=== PATIENT | female | born 1955 | race Caucasian/White ===

== ENCOUNTER 2021-06-25 06:47 | Observation (INO) | payer MEDICARE, SELFPAY ==
--- NOTE | 2021-06-16 11:27 | RAD_ITS ---
STUDY: X-RAY CHEST REASON FOR EXAM: Female, 65 years old. PREOP COMPARISON: None TECHNIQUE: XR Chest 2 Views FINDINGS: There is no demonstrated pleural abnormality. Age indeterminate mid thoracic compression deformity. MRI can better evaluate. Normal heart size. Normal mediastinum and jeffry. Normal visualized pulmonary arteries. There is atherosclerotic calcification of the aortic arch with tortuosity. There are diffuse degenerative changes of the visualized thoracic spine. There is degenerative osteoarthritis of the bilateral shoulders. There is no demonstrated abnormality of the visualized soft tissue structures of the upper abdomen. RAD/Chest PA and Lateral IMPRESSION: There are no acute findings. Other findings as above. Electronically Signed: Dov Payton MD at 16:54 EST ,
[2021-06-16 11:50] LABS: Absolute Lymphocyte Count 1.37 X10^3/uL (0.83-4.51); Absolute Neutrophil Count 3.8 X10^3/uL (2.0-7.7); Basophil# 0.11 X10^3/uL; Basophil% 1.7 % (0-1); Eosinophil# 0.54 X10^3/uL; Eosinophils% 8.5 % (0-5); Hematocrit 39.6 % (37-47); Hemoglobin 12.6 g/dL (12.0-15.0); Lymphocyte # 1.37 X10^3/ul (0.83-4.51); Lymphocyte % 21.4 % (19-41); Mean Corp Hgb Conc 31.8 g/dL (32-36); Mean Corpuscular Hgb 28.2 pg (27.0-32.0); Mean Corpuscular Volume 88.6 fL (81-99); Mean Platelet Vol. 11.7 fl (6.2-12.0); Monocyte# 0.58 X10^3/uL; Monocyte% 9.1 % (0-10); NRBC Flagged by Analyzer 0 % (0-5); Neutrophil # 3.77 X10^3/uL (2.7-7.7); Platelet Count 253 K/mm3 (150-450); RBC Distribution Width CV 14.8 % (11.6-14.6); RBC Distribution Width SD 47.5 fl (35.1-43.9); Red Blood Count 4.47 M/mm3 (4.2-5.4); White Blood Count 6.4 K/mm3 (4.4-11.0)
[2021-06-16 12:53] LABS: Magnesium 1.7 mg/dL (1.6-2.6); Thyroid Stim Hormone (TSH) 0.12 uIU/mL (0.358-3.74)
[2021-06-16 13:11] LABS: Albumin, Serum 3.5 g/dL (3.2-5.0); Anion Gap 8 (5-15); BUN 18 mg/dL (7-18); BUN/Creat Ratio 18.6 RATIO (10-20); Calcium,Total 9.3 mg/dL (8.5-10.1); Chloride 104 mmol/L (98-107); Creatinine, Serum 0.97 mg/dL (0.55-1.02); EST Glomerular Filtration Rate 62 mL/min (>60); Est Glom Filt Rate - Afr Amer 74 mL/min (>60); Glucose 98 mg/dL (74-106); Potassium 4.1 mmol/L (3.5-5.1); Sodium Level 140 mmol/L (136-145)
[2021-06-25] VITALS (13 sets, daily range): BP systolic 102–137; BP diastolic 46–72; PULSE 66–78; RESP 12–18; TEMP 36.3–36.8; O2SAT 94–100; BMI 25.2
[2021-06-25] MEDS: Acetaminophen 500 MG Tablet 1000 MG PO ×3 (06:18→21:32)
[2021-06-25] MEDS: Gabapentin 600 MG Tablet PO (06:19)
[2021-06-25] MEDS: Lactated Ringers 1,000 ML 15 ML IV (06:20)
[2021-06-25 06:46] LABS: Bedside Glucose 101 mg/dL (70-110)
--- NOTE | 2021-06-25 06:49 | RAD_ITS ---
STUDY: X-RAY - RIGHT KNEE REASON FOR EXAM: Female, 65 years old. Post op -- AP and Lateral xray of operative knee in PACU TECHNIQUE: 2 view(s) of the knee. COMPARISON: None. FINDINGS: Normal visualized distal femur. Normal visualized proximal tibia and fibula. Normal proximal tibiofibular articulation. The patient is status post right knee replacement. There is good alignment. Postoperative soft tissue changes. RAD/Knee 1 or 2 Views IMPRESSION: Status post right total knee replacement. There is good alignment. Postoperative soft tissue changes. Electronically Signed: Jose Miguel Martinez MD at 10:55 EST ,
[2021-06-25] MEDS: Cefazolin 2 GM in 0.9% Normal Saline 100 ML IV (07:27)
[2021-06-25] MEDS: TXA 1000mg in NS100 100ml (IVPB at Incision) 660 MG IV (07:35)
[2021-06-25] MEDS: dexAMETHasone 10 MG/ML Vial IV (07:45)
[2021-06-25] MEDS: TXA 1000mg in NS100 100ml (IVPB at Closure) 660 MG IV (08:53)
--- NOTE | 2021-06-25 10:32 | PCM.OPRPT ---
Report of Operation Pre-Operative Diagnosis: Right knee primary osteoarthritis Post-Operative Diagnosis: Right knee primary osteoarthritis Surgery/Procedure Performed:: Right minimally invasive computer assisted navigated total knee replacement Description of Surgical Findings:: Stable knee with good patella tracking Surgeon: Juma Pabon emergency room specialist: Josh Roland Type of Anesthesia: Spinal Anesthesiologist: Bandar Reynolds Special Medications: 2 g Ancef, 1 g TXA at incision, 1 g TXA closure, 10 mg Decadron, joint cocktail (5 mg Duramorph, 30 mL of 0.5% Ropivicaine, 1000 units of epinephrine, 30 mg of Toradol) Specimen's removed: Bony cuts Estimated Blood Loss (mL): 25 Fluids Replaced: Crystalloid Description of Procedure: Implants used: 1. [employer] cemented distal femur: 67.5mm 2. [employer] tibial baseplate: 75mm 3. [employer] polyethylene: 12mm 4. [employer] patella component: 34mm Brief history operative indications: 76-year-old F with history of right knee osteoarthritis with radiographic findings with loss of joint space, osteophyte formation and subchondral sclerosis. Failed conservative measures as mentioned in the H&P. Discussion of total knee arthroplasty as well as risk and benefits were discussed the patient including but not limited to blood loss, DVTs, PEs, neurovascular damage, general risk of anesthesia including loss of life, and stiffness or instability were discussed with patient. Patient demonstrated understanding and was able to sign informed consent. Patient had allergies to nickel so we elected to proceed with a computer navigated nickel free knee. Procedure: On the date of procedure patient's right lower extremity was marked in the preoperative area. The patient was then taken back to the operating room where the patient was placed on the table in the supine position. All bony prominences were identified a well-padded. Anesthesia assumed control of the C-spine and airway and remained controlled throughout the remainder of the procedure. A tourniquet was placed on the right upper thigh and the leg was prepped in a sterile fashion. The surgeon then scrubbed at this time. Upon reentering the room the right lower extremity was draped in a standard orthopedic fashion. A timeout was then called and everyone agreed upon the side, the site, the procedure to be performed, patient's identity and antibiotics given. Esmarch bandage was used to exsanguinate the extremity and the tourniquet was placed up to 250 mmHg with the knee in flexion. A midline skin incision was made and sharp dissection was taken down through skin subcutaneous tissue and fat. The standard medial parapatellar incision was made and the patella was subluxed laterally. The standard deep MCL release was done and the fat pad was resected. Next our attention was directed to the femur. Navigation pins were placed, navigation was registered. The distal femoral cutting block was pinned into place and 10 mm of distal femur resection was completed. The distal femoral cut was verified with navigation. The knee was then placed in deep flexion in the standard [employer] sizing guide was used to place the femoral component in 3? external rotation based on the posterior condyles. A size 67.5 4-in-1 cutting block was selected and pinned into place. The anterior cut was then made and checked for notching. The subsequent anterior chamfer cuts, posterior condylar cuts and posterior chamfer cuts were made while ensuring the MCL and LCL were protected. Our attention was then turned to the tibia where the navigation pins were placed, navigation was registered. [employer] tibial cutting guide was used to make the appropriate tibial cut 90 degrees from the mechanical axis. Navigation was then used to verify the cut. A size 75 mm tibial base plate was selected. the knee was flexed to 90 degrees and the soft tissues and posterior osteophytes were removed from the joint. 40 cc of the periarticular injection was injected into the posterior medial corner of the joint. The appropriate trials were then placed on the femur and tibia. A trial polyethylene was trialed to ensure proper balancing and stability of the knee. Patella tracking, was then verified and corrected appropriately as needed. The appropriate tibial internal rotation was then marked with a bovie. Our attention was then directed to the patella. The patella was everted and a flat resection was made. The lug holes were drilled and the patella trial was placed. Patellar tracking was checked and deemed appropriate. Once we were happy lug holes were drilled for the femur and trial components were removed. the tibia was subluxed and pinned into place and the keel was punched and the canal was reamed. Final components were verified and opened, and cement was mixed in a vacuum. [place] Simplex cement was used. The wound was copiously irrigated with normal saline. When the cement was ready the components were cemented into place starting with the tibia, femur and finally the patella. The trial poly component was placed and the knee was placed in full extension. All excess cement was removed in the process. Once the cement had cured the tracking, alignment and balance were verified and a size 12 mm polyethylene component was placed. Once the final components were placed the wound was copiously irrigated with normal saline solution and the periarticular injection was given. The wound was closed in a layer richardson fashion using #1 vicryl interrupted sutures for the arthrotomy, 2-0 interrupted Vicryl suture for the subcuticular layer and jennifer for final skin closure. A sterile compressive dressing was then placed. The patient was then awakened from anesthesia, transferred to the rexeter and transferred to the PACU for recovery. Post op plan DVT ppx: ASA 81mg BID, thigh high compression stockings Follow up: in office in 2 weeks for wound check PT: to start POD #0 at hospital, outpatient PT should be arranged. My physician registered nurse first assistant was a vital part of this case. He was important in appropriate retraction during the case, and protection of soft tissues during bony cuts. His intimate knowledge of the case and my steps aided in safe and expedient completion of the procedure as well as appropriate position of the leg during the case. He was also vital in assisting with closure under my direct supervision. Due to the complexity of this case robotic arm was used to assist in the surgery to improve accuracy and clinical outcomes.. Complications No intraoperative complications Admit VTE Documentation VTE Present on Admission: No VTE Mechan Device Prophylaxis: SCD's and Thigh High DON Hose VTE Pharm Prophylaxis ordered?: Yes
[2021-06-25] MEDS: Lactated Ringers 1,000 ML 999 ML IV (10:37)
--- NOTE | 2021-06-25 12:55 | PCM.PN.HOSP ---
Subjective Subjective Patient was admitted for elective right total knee arthroplasty today. She has been returned to her room me postoperatively and is complaining of no significant pain at this time. She is somewhat drowsy but is appropriate and interacts well. She indicates she has had 3 left total knee arthroplasty and this is the first when she is hot on her right. She indicates she has a history of paroxysmal atrial fibrillation for which she takes propafenone. She is not chronically anticoagulated and follows with an pigs feet finisher at another hospital. We have been consulted for postoperative medical management. Objective Data Objective Data Vital Signs: Vital Signs Temp Pulse Resp BP Pulse Ox 97.5 F L 73 16 112/61 94 06/25/21 11:34 06/25/21 11:34 06/25/21 11:34 06/25/21 11:34 06/25/21 11:34 Oxygen Flow Rate (L/min) 4 Oxygen Delivery Method Room Air Weight: 73 kg Body Mass Index (BMI) 25.2 Intake & Output: Intake and Output for Last 24 Hours 06/23/21 06/24/21 06/25/21 23:59 23:59 23:59 Intake Total 2433.5 / 2433.5 Balance 2433.5 / 2433.5 Lab / Micro Data Result Diagrams: 06/16/21 11:00 06/16/21 11:00 Labs: Laboratory Results - last 24 hr 06/25/21 05:57: POC Glucose 101 Micro: Microbiology 06/16/21 11:00 Interface Orders Nasal Screen MRSA/MSSA - Final Radiography Diagnostic Testing: Radiology Impression Knee X-Ray 06/25/21 06:49 IMPRESSION: Status post right total knee replacement. There is good alignment. Postoperative soft tissue changes. Electronically Signed: Jose Miguel Martinez MD at 10:55 EST , Physical Exam Const alert, oriented x3, no apparent distress, average body habitus, healthy appearing and well nourished Constitutional Narrative: Upper middle-aged white female lying in bed, appears comfortable nontoxic, nursing at bedside, patient is slightly groggy but awake and alert and appropriate Exam Limitations: no limitations HEENT head/scalp atraumatic and moist oral mucous membranes HEENT Narrative: Mallampati is 2, no thrush, dentition is good Head and Scalp: normocephalic Resp normal respiratory effort, no retractions, no use of accessory muscles and clear to auscultation bilaterally Auscultation: Negative for crackles, rales, rhonchi or wheezes Cardio regular rate, regular rhythm, S1 normal heart sound, S2 normal heart sound, no murmurs, no rub, no gallops, no clicks and no JVD GI normal to inspection, nondistended, normoactive bowel sounds, soft to palpation, non-tender and non-distended Extremity no clubbing, cyanosis or edema Extremity Narrative: Right knee with polar ice in place and postoperative dressing as well as DON hose on bilateral lower extremities Peripheral Pulses: Yes pulses 2+ throughout Neuro oriented x3, CN's II-XII intact bilaterally and no focal motor deficits Sensorium / Orientation: awake and alert Assessment & Plan Assessment/Plan (1) Osteoarthritis of right knee: PLAN: Right knee osteoarthritis -Patient failed outpatient conservative management -Postop day 0 minimally invasive right total knee arthroplasty -Weightbearing as tolerated -PT/OT to initiate -Patient physical therapy upon discharge -Aspirin 81 mg twice daily for DVT prophylaxis -Thigh-high compression stockings -Plan is to follow-up with outpatient Ortho in 2 weeks Paroxysmal atrial fibrillation -Continue propafenone -She has had 2 ablations previously -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 twice daily Hypothyroidism -Continue levothyroxine -Continue Cytomel Vitamin D deficiency -Continue ergocalciferol GERD -Continue Protonix DVT prophylaxis -DON hose -SCDs -Aspirin 81 mg p.o. twice daily per primary service Charges/Coding Visit Charges Office Visits / Consults: 92503 OV L2 Est
[2021-06-25] MEDS: Cefazolin 1 GM/50 ML BAG IV ×2 (13:32→21:24)
[2021-06-25] MEDS: Pantoprazole Sodium 40 MG Tablet PO ×2 (13:33→21:32)
[2021-06-25] MEDS: Senna/Docusate Sodium 1 Tablet 2 TABLET PO ×2 (13:33→21:32)
[2021-06-25] MEDS: Propafenone 150 MG Tablet 225 MG PO ×2 (13:33→21:32)
[2021-06-25] MEDS: 0.9% Saline Lock 10 ML Syringe IV (13:33)
[2021-06-25] MEDS: Multivitamin (Healthy Eyes) Capsule 1 CAP PO ×2 (13:34→21:31)
[2021-06-25] MEDS: Aspirin 81 MG TAB.CHEW PO ×2 (13:34→21:31)
[2021-06-25] MEDS: Famotidine 20 MG Tablet PO (13:34)
[2021-06-25] MEDS: Metoprolol Tartrate 25 MG Tablet PO ×2 (13:36→21:31)
--- NOTE | 2021-06-25 14:15 | CASEMGMT ---
Addendum entered by Estelita Long 06/25/21 14:33: Pt denied need to designate a person to discuss her dc plans with. Pt did not have any contacts listed, she did provide a friend for emergency contact. Original Note: SHAWN SCHAFER Assessment: Face to Face with pt for initial transition planning/care coordination assessment. SHAWN SCHAFER introduced self and role at [facility], pt voices understanding and consents to assessment. Pt is A/O x4 and answers all questions appropriately at this time. Pt sitting up in bed in no distress. Care providers, pharmacy, and demographics verified/updated. Admitting Dx: R total knee computer navigated PCP: Yohana Specialists:[facility]; jasmyne Cash; Noah, technology lead Preferred Pharmacy: [facility] Insurance: [employer] [facility] Prescription Benefit: yes LW/HPOA: Pt denies having a LW/DPOA and denies need for info regarding AD. LNOK: Tamara Neves, friend Living Arrangements: Pt lives alone in a single story condo with 2 steps to enter from the garage without a rail and no steps to enter from the front door. Pt reports she was I in ADL's and denies concerns at home. Transportation: Pt drives self and denies concerns with transportation. Pt has friends in her condo area that will assist with transportation to medical appts while she is unable to drive. DME/HHC/SNF: Pt has a FWW that is present in the room. Pt does not typically use. Pt has had HHC in the past but is unsure of which agency it was from. Pt denies SNF stays. Pt states no concerns with going home at time of dc. Pt states she has therapy set up at [facility] for Wednesday. Pt states no further concerns/needs. CM to follow. Advised pt to ask CM if any further question/concerns/needs arise, voices understanding. Pt Goal: Home with outpt therapy Plan: Home with outpt therapy, already set up.
[2021-06-26 00:36] VITALS: BP 108/41; PULSE 67; RESP 16; TEMP 36.8; O2SAT 98
[2021-06-26 05:40] VITALS: BP 108/52; PULSE 63; RESP 18; TEMP 36.7; O2SAT 98
[2021-06-26] MEDS: oxyCODONE 5 MG Tablet PO (05:45)
[2021-06-26] MEDS: Propafenone 150 MG Tablet 225 MG PO ×2 (05:45→13:33)
[2021-06-26] MEDS: Acetaminophen 500 MG Tablet 1000 MG PO ×2 (05:46→13:33)
[2021-06-26] MEDS: Levothyroxine 112 MCG Tablet PO (05:46)
[2021-06-26 05:59] LABS: Hemoglobin 10.1 g/dL (12.0-15.0); Mean Corp Hgb Conc 33.7 g/dL (32-36); Mean Corpuscular Hgb 29.3 pg (27.0-32.0); Mean Platelet Vol. 11.7 fl (6.2-12.0); Platelet Count 211 K/mm3 (150-450); RBC Distribution Width CV 14.6 % (11.6-14.6); RBC Distribution Width SD 46.6 fl (35.1-43.9); Red Blood Count 3.45 M/mm3 (4.2-5.4); White Blood Count 12.1 K/mm3 (4.4-11.0)
[2021-06-26 06:26] LABS: Anion Gap 3 (5-15); BUN 18 mg/dL (7-18); BUN/Creat Ratio 17.5 RATIO (10-20); Calcium,Total 8.4 mg/dL (8.5-10.1); Chloride 105 mmol/L (98-107); Creatinine, Serum 1.03 mg/dL (0.55-1.02); EST Glomerular Filtration Rate 57 mL/min (>60); Est Glom Filt Rate - Afr Amer 69 mL/min (>60); Estimated Creatinine Clearance 54.37 ml/min; Glucose 150 mg/dL (74-106); Potassium 4.5 mmol/L (3.5-5.1); Sodium Level 137 mmol/L (136-145)
--- NOTE | 2021-06-26 09:09 | PCM.PN.ORT ---
Subjective Subjective The patient was sitting in bedside chair upon examination. Patient denies any chest pain, shortness of breath, dizziness, lightheadedness, nausea or vomiting, or calf pain. Pain is controlled on medications. No adverse overnight events. Patient did have some dizziness yesterday but they removed her scopolamine patch and this resolved. Patient had physical therapy this morning and did very well. Patient states she feels she is capable of going home with help from friends. She has outpatient physical therapy established. She has a brace for the left knee. Objective Data Objective Data Vital Signs: Vital Signs Temp Pulse Resp BP Pulse Ox 98.1 F 63 18 108/52 L 98 06/26/21 05:40 06/26/21 05:40 06/26/21 05:40 06/26/21 05:40 06/26/21 05:40 Oxygen Flow Rate (L/min) 4 Oxygen Delivery Method Room Air Weight: 73 kg Body Mass Index (BMI) 25.2 Intake & Output: Intake and Output for Last 24 Hours 06/24/21 06/25/21 06/26/21 23:59 23:59 23:59 Intake Total 3241.00 / 3241.00 447 / 447 Balance 3241.00 / 3241.00 447 / 447 Lab / Micro Data Result Diagrams: 06/26/21 05:35 06/26/21 05:35 Labs: Laboratory Results - last 24 hr 06/26/21 05:35: WBC 12.1 H, RBC 3.45 L, Hgb 10.1 L, Hct 30.0 L, MCV 87.0, MCH 29.3, MCHC 33.7, RDW Std Deviation 46.6 H, RDW Coeff of Juan Daniel 14.6, Plt Count 211, MPV 11.7 06/26/21 05:35: Sodium 137, Potassium 4.5, Chloride 105, Carbon Dioxide 29.0, Anion Gap 3 L, BUN 18, Creatinine 1.03 H, Estim Creat Clear Calc 54.37, Est GFR (MDRD) Af Amer 69, Est GFR (MDRD) Non-Af 57 L, BUN/Creatinine Ratio 17.5, Glucose 150 H, Calcium 8.4 L Micro: Microbiology 06/16/21 11:00 Interface Orders Nasal Screen MRSA/MSSA - Final Radiography Diagnostic Testing: Radiology Impression Knee X-Ray 06/25/21 06:49 IMPRESSION: Status post right total knee replacement. There is good alignment. Postoperative soft tissue changes. Electronically Signed: Jose Miguel Martinez MD at 10:55 EST , Physical Exam Narrative Vital signs stable and afebrile. SCDs and DON hose in place Patient is able to plantarflex and dorsiflex actively. Sensation is intact to light touch to saphenous, sural, superficial and deep peroneal, and tibial distribution. ABD dressing is clean dry and intact. Patient is unable to utilize our normal Mepilex dressing due to allergy. Will continue with ABDs and DON hose Negative Homans bilaterally, negative signs and symptoms of DVT. Const alert, oriented x3 and no apparent distress Assessment & Plan Assessment/Plan (1) Status post total right knee replacement: PLAN: 1. S/P right total knee arthroplasty POD #1 2. Continue Pain Medications: Tylenol, meloxicam, oxycodone. Discussed with the patient that if she has any complications with the meloxicam with stomach irritation she will stop this. She states she has taken this in the past with no complications. She does have underlying reflux which she takes medication at home. 3. DVT Prophylaxis: Take 81 mg aspirin twice daily for 4 weeks postoperatively for DVT prophylaxis 4. PT/OT: Weightbearing as tolerated. Patient has a brace at home for the left knee in which she has had 3 previous surgeries. I recommend she use the knee brace for the left while recovering for the right total knee arthroplasty. She voiced understanding and agreement. Patient tolerated therapy very well today. Plan is for discharge home today. 5. H & H: 10.1/30.0, asymptomatic. Postoperative anemia secondary to acute blood loss from surgery without any intra operative complications. 6. Reactive leukocytosis: Currently 12.1, afebrile. Patient did receive Decadron intraoperatively 7. Continue postoperative medical management per medicine: Discussed with hospitalist and okay for discharge from their standpoint 8. Encouraged Incentive Spirometry 9. Disposition: Overall patient is doing very well this morning. Pain is well controlled. She tolerated therapy very well. Plan will be for discharge home today. She will utilize the brace for the left knee while recovering on the right knee. Prescriptions will be E scribed to [facility] pharmacy. She will follow-up per postop instructions. I discussed with the patient that since we are not able to use her normal Mepilex dressing, she will continue to utilize the ABD and avoid getting the incision wet for the first 5 days postoperatively. After 5 days she can shower and get the incision wet. No submerging the incision underwater for 6 weeks postoperatively. Patient voiced understanding and agreement. Continue with the DON hose for 2 weeks postoperatively. I have reviewed the [place] Automated Rx Reporting System (OARRS) report for this patient for refill pattern and other prescriber involvement as part of the appropriate surveillance for the provision of acute and chronic controlled medications. The report was requested and reviewed on the date of this entry and was considered in the prescribing process.
--- NOTE | 2021-06-26 09:16 | DCINST_ITS ---
Discharge Instructions Diet Discharge Diet: No restrictions Activity Discharge Activity: May Not Drive (while taking narcotic pain medications.) and May Not Shower (Do not get incision wet for 5 days postoperatively. Continue with ABD dressing with daily changes.) May shower in (days): 5 Ice area for (Minutes): 20 (Every 1-2 hours while awake. [address] place barrier between the skin and ice pack.) Weight Bearing Status: Weight bearing as tolerated Keep extremity elevated above heart level: Operative Extremity Dressing / Incision Call your doctor if your incision/area has: Continuous Slow Oozing, Sudden Increased Bleeding, Increased Pain/ Swelling, Increased Redness and Foul Smelling Discharge Call your doctor if you observe: Fever of 101 or Higher, Coldness, Increased Pain, Numbness or Tingling, Change in Color, Shortness of breath, Chest pain, Calf discomfort and Uncontrolled pain Remove Dressing in: 5 days Additional Dressing/Incision Instructions:: Follow [facility] Post-op Instructions. Once postoperative dressing has been removed only use gentle soap and water over the incision. Do not use any ointments, Neosporin, salves, alcohol pads over the incision for 6 weeks postoperatively. Do not submerge underwater for 6 weeks postoperatively. Continue with DON hose/elastic stockings for 2 weeks postoperatively. May remove at nighttime but needs to be placed back on the leg during the day. Do NOT use alcohol with narcotic pain medication. Do NOT make important decisions while taking narcotic medication. If you have problems with taking your medication (rash, itching, nausea, etc.) call the office at once. Follow Up Care Test Results: Test results from this visit will be discussed in further detail at your follow-up appointment, if applicable. Discharge Plan Admission Admit Date/Time: 06/25/21 06:47 Attending Provider: Juma Pabon Primary Care Provider: Irvin Muller Consulting Providers: Dalia Reyes Discharge Orders/Prescriptions Prescriptions: New acetaminophen 500 mg Tablet 1,000 mg PO TID Qty: 100 RF: 0 aspirin 81 mg Tablet,Chewable 81 mg PO BID Qty: 60 RF: 0 meloxicam 7.5 mg Tablet 7.5 mg PO BID Qty: 60 RF: 0 oxycodone 5 mg Tablet 5 - 10 mg PO Q4H PRN PRN (Reason: Pain Score 4-10) 5 Days Qty: 60 RF: 0 sennosides-docusate sodium [Stool Softener-Stimulant Laxat] 8.6-50 mg Tablet 2 tab PO BID Qty: 20 RF: 0 Continued liothyronine [Cytomel] 5 mcg Tablet 5 mcg PO DAILY RF: 0 propafenone 225 mg Tablet 225 mg PO Q8H RF: 0 pantoprazole 40 mg Tablet,Delayed Release (Dr/Ec) 40 mg PO BID RF: 0 ergocalciferol (vitamin D2) [Vitamin D2] 1,250 mcg (50,000 unit) Capsule 1,250 mcg PO QMONTH RF: 0 levothyroxine [Synthroid] 112 mcg Tablet 112 mcg PO DAILY RF: 0 metoprolol tartrate 25 mg Tablet 25 mg PO BID RF: 0 PreserVision AREDS-2 250-90-40-1 mg Capsule 1 tab PO BID RF: 0 Referrals / Follow Up: physical,therapy [Other] - 06/27/21 Irvin Muller DO [Primary Care Provider] - Josh Roland PA-C [PHYSICIAN CHIEF LIBRARIAN EXTENSION DEPARTMENT] - 07/10/21 2:00 pm Disposition Disposition (needs filled in before D/C Order can be placed): Home, Self Care
[2021-06-26 09:20] VITALS: BP 100/59; PULSE 68; RESP 18; TEMP 36.6; O2SAT 97
[2021-06-26] MEDS: Multivitamin (Healthy Eyes) Capsule 1 CAP PO (09:29)
[2021-06-26] MEDS: Famotidine 20 MG Tablet PO (09:29)
[2021-06-26] MEDS: Senna/Docusate Sodium 1 Tablet 2 TABLET PO (09:29)
[2021-06-26 09:30] VITALS: PULSE 68
[2021-06-26] MEDS: Pantoprazole Sodium 40 MG Tablet PO (09:30)
[2021-06-26] MEDS: Aspirin 81 MG TAB.CHEW PO (09:30)
--- NOTE | 2021-06-26 11:55 | CASEMGMT ---
SHAWN SCHAFER in to discuss GAN form with patient. RN GILMAR explained GAN form to patient, patient voiced understanding. Patient signed GAN form and filed in chart. Patient provided with copy of signed GAN form. Patient had no further questions or concerns at this time.
[2021-06-26 12:16] VITALS: BP 99/53; PULSE 69; RESP 18; TEMP 36.8; O2SAT 98
== END 2021-06-26 14:26 | disposition home or self-care (01) ==
LOC: SDC 08:39 → MS3 08:39
PROVIDERS: Anesthesiology; Admitting Provider Specialist; PCP Student in an Organized Health Care Education/Training Program; Referring Provider Specialist; Visit Provider Specialist
PROC: (CPT 27447; principal; 2021-06-25 07:00)
DX: M17.11 Unilateral primary osteoarthritis, right knee (principal); I48.0 Paroxysmal atrial fibrillation; E03.9 Hypothyroidism, unspecified; Z87.891 Personal history of nicotine dependence; Z79.890 Hormone replacement therapy; Z79.899 Other long term (current) drug therapy; K21.9 Gastro-esophageal reflux disease without esophagitis; I10 Essential (primary) hypertension
CPT/HCPCS: 27447; 20985; S2900; 01402; 64447; 36415; 71046; 73560; 80048; 82040; 82962; 83735; 84443; 85025; 85027; 87081; 96365; 96366; 97110; 97162; 97166; 97530; 97535; 99218; 99251; C1776; J7050; J7120; A4216; G0378; G0463; J3475

== ENCOUNTER → 2022-05-22 | Outpatient (CLI) | payer MEDICARE, SELFPAY ==
[2022-05-22 12:48] LABS: Absolute Lymphocyte Count 1.54 X10^3/uL (0.83-4.51); Absolute Neutrophil Count 4.8 X10^3/uL (2.0-7.7); Basophil# 0.15 X10^3/uL; Basophil% 1.8 % (0-1); Eosinophil# 0.96 X10^3/uL; Eosinophils% 11.7 % (0-5); Erythrocyte Sedimentation Rate 4 mm/hr (0-30); Hematocrit 37.1 % (37-47); Hemoglobin 11.6 g/dL (12.0-15.0); Lymphocyte # 1.54 X10^3/ul (0.83-4.51); Lymphocyte % 18.8 % (19-41); Mean Corp Hgb Conc 31.3 g/dL (32-36); Mean Corpuscular Volume 86.3 fL (81-99); Mean Platelet Vol. 11.6 fl (6.2-12.0); Monocyte# 0.74 X10^3/uL; NRBC Flagged by Analyzer 0 % (0-5); Neutrophil # 4.78 X10^3/uL (2.7-7.7); Neutrophil % 58.5 % (47-70); Platelet Count 317 K/mm3 (150-450); RBC Distribution Width CV 16.4 % (11.6-14.6); RBC Distribution Width SD 51.8 fl (35.1-43.9); White Blood Count 8.2 K/mm3 (4.4-11.0)
[2022-05-22 12:50] LABS: CRP < 2.90 mg/L (0.0-3.0)
[2022-05-22 12:57] LABS: RBC /Synovial Fluid 0.043 10^6/uL (0); Synovial Fld Mononuclear WBC # 0.253 10^3/ul; Synovial Fld Mononuclear WBC % 41.5 %; Synovial Fld Polynuclear WBC # 0.356 10^3/uL; Synovial Fld Polynuclear WBC % 58.5 %
[2022-05-22 15:27] LABS: AUTO B FLUID DILUENT BKGD CT WBC <0.1 RBC <0.01 (W<.1,R<.01); Lymph 6 %; Monocyte /Synovial Fluid 25 %; Neutrophil 53 % (0-25); Other Cell /Synovial Fluid 16 %
[2022-05-22 15:28] LABS: Appearance /Synovial Fluid Cloudy (CLEAR); Color / Synovial Fluid Bloody (Pale Yellow)
[2022-05-22 15:32] LABS: Viscosity / Synovial Fluid Sl. Viscous (HIGH)
[2022-05-25 13:25] LABS: Pathologist Comment Reviewed
== END | disposition home or self-care (01) ==
LOC: LABSPEC 11:06
PROVIDERS: PCP Student in an Organized Health Care Education/Training Program; Referring Provider Physician Assistant Surgical; Visit Provider Physician Assistant Surgical
DX: Z96.652 Presence of left artificial knee joint (principal)
CPT/HCPCS: 36415; 85025; 85652; 86140; 87015; 87070; 87075; 87101; 87116; 87205; 87206; 89050; 89051

== ENCOUNTER 2023-12-20 20:04 | Emergency (ER) | payer MEDICARE, SELFPAY ==
[2023-12-20 20:05] VITALS: BP 137/62; PULSE 86; RESP 16; TEMP 37.7; O2SAT 100; BMI 24.1
[2023-12-20 20:31] LABS: Absolute Lymphocyte Count 0.31 X10^3/uL (0.83-4.51); Absolute Neutrophil Count 9.3 X10^3/uL (2.0-7.7); Basophil# 0.07 X10^3/uL; Basophil% 0.6 % (0-1); Eosinophil# 0.09 X10^3/uL; Eosinophils% 0.8 % (0-5); Hemoglobin 10.6 g/dL (12.0-15.0); Lymphocyte # 0.31 X10^3/ul (0.83-4.51); Lymphocyte % 2.9 % (19-41); Mean Corp Hgb Conc 32.1 g/dL (32-36); Mean Corpuscular Hgb 25.7 pg (27.0-32.0); Mean Corpuscular Volume 79.9 fL (81-99); Mean Platelet Vol. 10.9 fl (6.2-12.0); Monocyte# 0.94 X10^3/uL; Monocyte% 8.7 % (0-10); NRBC Flagged by Analyzer 0 % (0-5); Neutrophil # 9.31 X10^3/uL (2.7-7.7); Neutrophil % 86.5 % (47-70); POSITIVE DIFFERENTIAL YES; Platelet Count 193 K/mm3 (150-450); RBC Distribution Width CV 16.8 % (11.6-14.6); RBC Distribution Width SD 48.6 fl (35.1-43.9); Red Blood Count 4.13 M/mm3 (4.2-5.4); White Blood Count 10.8 K/mm3 (4.4-11.0)
[2023-12-20 20:33] LABS: Squamous Epithelial Cells - UA 0 SEEN /hpf (5-10)
[2023-12-20 20:35] LABS: Color, Urine Yellow (Yellow); Glucose, Dipstick Normal (Normal); Ketone-Dipstick 50 mg/dl (Negative); Leukocyte Esterase-Dipstick 500 /ul (Negative); Nitrite-Dipstick Positive (Negative); Occult Blood-Urine 10 /ul (Negative); Protein-Dipstick 30 mg/dl (Negative); Specific Gravity, Urine 1.015 (1.002-1.030); Urine Clarity Sl. Cloudy (Clear); Urine Urobilinogen 4 mg/dl (Normal)
[2023-12-20 20:50] LABS: Urine Bilirubin Dipstick 3 mg/dL (Negative)
[2023-12-20 20:51] LABS: ALB/GLOB Ratio 0.9 RATIO (0.9-2.4); AST(SGOT) 20 U/L (15-37); Alanine Aminotransfer ALT/SGPT 21 U/L (13-56); Albumin, Serum 3.4 g/dL (3.2-5.0); Alkaline Phosphatase 52 U/L (45-117); Anion Gap 7 (5-15); BUN 23 mg/dL (7-18); BUN/Creat Ratio 19.8 RATIO (10-20); Calcium,Total 9.1 mg/dL (8.5-10.1); Chloride 103 mmol/L (98-107); Creatinine, Serum 1.16 mg/dL (0.55-1.02); EST Glomerular Filtration Rate 50 mL/min (>60); Est Glom Filt Rate - Afr Amer 60 mL/min (>60); Estimated Creatinine Clearance 46.39 ml/min; Globulin 3.9 g/dL (2.2-4.2); Glucose 115 mg/dL (74-106); Potassium 4.2 mmol/L (3.5-5.1); Protein, Total 7.3 g/dL (6.4-8.2); Sodium Level 137 mmol/L (136-145)
[2023-12-20 20:51] LABS: Bacteria 1+ /hpf (None Seen); Mucous, Urine 1+ /hpf (<or=2+); Red Blood Cells-Urine 0-5 SEEN /hpf (0-5); White Blood Cells 10-25 SEEN /hpf (0-5)
[2023-12-20 22:00] VITALS: BP 132/50; PULSE 76; RESP 18; TEMP 37.1; O2SAT 98
[2023-12-20] MEDS: Ondansetron 4 MG/2 ML Vial IV (22:44)
[2023-12-20] MEDS: 0.9% Normal Saline (1000mL) 1,000 ML 999 ML IV (22:44)
[2023-12-20] MEDS: Ceftriaxone 1 GM/50 ML BAG IV (22:45)
[2023-12-20 22:59] LABS: Lipase 29 U/L (13-75)
[2023-12-20 23:00] VITALS: BP 140/88; PULSE 80; RESP 17; TEMP 37.1; O2SAT 98
--- NOTE | 2023-12-20 23:58 | EX.ED.DYSGE1 ---
HPI History of Present Illness Chief Complaint: Complaint Informant: patient Narrative Narrative: Patient is a 68-year-old female with past medical history of hypothyroidism. She states that she awoke Wednesday morning and felt mild pain in her lower mid abdomen and then noticed increased urinary frequency and dysuria. She states she went to an urgent care on Wednesday/the next day and was told she has a UTI. She states she was placed on Macrobid and took a dose Wednesday after picking of the prescription and then before bed. She states she awoke this morning and had multiple bouts of nausea and vomiting as well as noticed a headache. Patient denies any known sick contacts but she states that because of the worsening symptoms she had concerned that the infection was not improving and therefore she comes in for evaluation [facility] Medical History (Updated 12/21/23 @ 02:[address] Michael Harp, ) Osteoarthritis of right knee Cardiology follow-up encounter Wears glasses Loose, teeth Alcohol use Thyroid disease Arthritis Gastric reflux Former smoker History of atrial fibrillation Hx of fracture of leg Home Medications ?Medication ?Instructions ?Recorded ?Last Taken ?Type ergocalciferol (vitamin D2) 1,250 1,250 mcg PO QMONTH supplement 06/11/21 Unknown History mcg (50,000 unit) capsule (Vitamin D2) levothyroxine 112 mcg tablet 112 mcg PO DAILY thyroid 06/11/21 Unknown History (Synthroid) liothyronine 5 mcg tablet (Cytomel) 5 mcg PO DAILY thyroid 06/11/21 Unknown History metoprolol tartrate 25 mg tablet 25 mg PO BID heart 06/11/21 Unknown History pantoprazole 40 mg tablet,delayed 40 mg PO BID reflux 06/11/21 Unknown History release propafenone 225 mg tablet 225 mg PO Q8H heart 06/11/21 Unknown History vit C 250 mg-vit E 90 mg-zinc 40 1 tab PO BID eye vitamin 06/11/21 Unknown History mg-copper 1 [id number] capsule (PreserVision AREDS-2) acetaminophen 500 mg tablet 1,000 mg (2 x 500 mg) PO TID #100 06/26/21 Unknown Rx tabs aspirin 81 mg chewable tablet 81 mg PO BID #60 tabs 06/26/21 Unknown Rx meloxicam 7.5 mg tablet 7.5 mg PO BID #60 tabs 03/03/22 Unknown Rx oxycodone 5 mg tablet 5 - 10 mg (1 - 2 x 5 mg) PO Q4H 06/26/21 Unknown Rx PRN PRN Pain Score 4-10 5 days #60 tabs sennosides 8.6 mg-docusate sodium 2 tab PO BID #20 tabs 06/26/21 Unknown Rx 50 mg tablet (Stool Softener-Stimulant Laxative) ondansetron 4 mg disintegrating 4 mg PO TID PRN nausea and 12/20/23 Unknown Rx tablet vomiting #21 tabs Allergy/AdvReac Type Severity Reaction Status Date / Time codeine Allergy Other Verified 12/20/23 20:05 nickel Allergy Other Verified 12/20/23 20:05 sodium hypochlorite solution Allergy Rash Verified 12/20/23 20:05 (From [employer]) adhesive tape AdvReac Rash Verified 12/20/23 20:05 Surgical History History of total knee arthroplasty Hx of prior ablation treatment History of back surgery Hx of knee surgery Social History Smoking Status: Former smoker ROS ROS ED Constitutional Constitutional ED: Reports chills, fever(s) and subjective Eyes Eyes: Denies blurry vision or change in vision ENT ENT ED: Denies sore throat Cardiovascular Cardiovascular: Denies chest pain Respiratory/Chest Respiratory/Chest: Denies cough or dyspnea Gastrointestinal Gastrointestinal: Reports abdominal pain, nausea and vomiting; Denies diarrhea Genitourinary Genitourinary ED: Reports dysuria and urinary frequency Musculoskeletal Musculoskeletal: Denies myalgias Integumentary Denies rash Neurologic Neurologic: Reports headache(s) Hematologic/Lymphatic Hematologic/Lymphatic: Denies easy bleeding or easy bruising EXAM Physical Exam Const Vital Signs: 12/20/23 20:05 12/20/23 22:00 12/20/23 23:00 Temperature 99.8 F H 98.8 F 98.8 F Temperature Source Oral Oral Oral Pulse Rate 86 76 80 Respiratory Rate 16 18 17 Blood Pressure 137/62 H 132/50 H 140/88 H Blood Pressure Mean 87 77 105 Pulse Ox 100 98 98 Oxygen Delivery Method Room Air Room Air Room Air 12/21/23 00:00 Temperature 98 F Temperature Source Pulse Rate 66 Respiratory Rate 18 Blood Pressure 128/44 H Blood Pressure Mean 72 Pulse Ox 98 Oxygen Delivery Method Positive well nourished and well developed General Appearance ED: well developed; Negative for pallor HEENT Reports dry mucous membranes HEENT Narrative: Mucous membranes are mildly dry and tacky No tongue or lip swelling no oral lesions no airway edema or compromise No secondary findings in the posterior pharynx to suggest infection Mouth ED: Yes dry mucous membranes Mouth: dry mucous membranes Eyes PERRL and EOMs intact bilaterally General Eye ED: Negative for scleral icterus Neck supple Resp normal respiratory effort and clear to auscultation bilaterally Cardio regular rate and regular rhythm GI non-distended and no masses GI Narrative: Abdomen is soft and nondistended with hyperactive bowel sounds. There is mild pain with palpation in the suprapubic region without organomegaly voluntary guarding rigidity or pulsatile mass Auscultation: hyperactive bowel sounds Palpation: soft Back/Spine no CVA tenderness Extremity normal to inspection Neuro oriented x3, CN's II-XII intact bilaterally and no sensory deficits noted Sensorium / Orientation: alert Motor Exam: strength 5/5 throughout Psych mental status grossly normal Skin no rashes or lesions noted and No skin turgor normal Skin Narrative: Skin turgor is increased General Skin Exam: Negative for jaundice or pallor MDM MDM MDM Narrative Medical decision making narrative: Patient arrived to the ER low-grade fever and slightly hypertensive. She reported 1 to 2 days of frequency and dysuria and had been on 1 day of Macrobid secondary to outside diagnosis of UTI. Now that she is developed bouts of nausea and vomiting as well as headache there is concern for viral infection such as COVID versus influenza versus RSV. There was concern for potential [place] virus versus rotavirus. Patient also may have acute kidney injury or electrolyte abnormality or pancreatitis causing her symptoms. Therefore a viral swab with basic laboratory studies were ordered. Patient's white count is normal at 10.8 and there is only mild left shift as her after neutrophil count is slightly elevated 9.3. Kidney function is just slightly elevated with a creatinine of 1.16 that correlates with her physical exam and dehydration. However there is no signs of clinically significant [place] abnormalities such as hyponatremia or hypokalemia. The patient's urine sample does show persistent infection with white blood cells and +1 bacteria. Therefore the urine will be sent for culture and should be given Rocephin in the ER. Secondary to her physical exam showing mild dehydration she was also given a liter of fluid. The patient's vital signs stabilized with treatment and as she is not showing signs of acute kidney injury or urosepsis or severe electrolyte abnormality I do not feel there is need for admission and she is otherwise safe for discharge. Moreover as she is only been on the Macrobid for 1 day she does not qualify as failure of outpatient therapy History & Record Review Discussion w/independent historian: Patient Lab Data Attestation: I reviewed the patient's lab results. Labs: Laboratory Results - last 24 hr 12/20/23 12/20/23 20:19 20:21 WBC 10.8 RBC 4.13 L Hgb 10.6 L Hct 33.0 L MCV 79.9 L MCH 25.7 L MCHC 32.1 RDW Std Deviation 48.6 H RDW Coeff of Juan Daniel 16.8 H Plt Count 193 MPV 10.9 Immature Gran % (Auto) 0.500 Neut % (Auto) 86.5 H Lymph % (Auto) 2.9 L Weld % (Auto) 8.7 Eos % (Auto) 0.8 Baso % (Auto) 0.6 Absolute Neuts (auto) 9.3 H Absolute Lymphs (auto) 0.31 L Nucleated RBC % 0 Sodium 137 Potassium 4.2 Chloride 103 Carbon Dioxide 27.0 Anion Gap 7 BUN 23 H Creatinine 1.16 H Estim Creat Clear Calc 46.39 Est GFR (MDRD) Af Amer 60 Est GFR (MDRD) Non-Af 50 L BUN/Creatinine Ratio 19.8 Glucose 115 H Calcium 9.1 Total Bilirubin 0.60 AST 20 ALT 21 Alkaline Phosphatase 52 Total Protein 7.3 Albumin 3.4 Globulin 3.9 Albumin/Globulin Ratio 0.9 Lipase 29 Urine Color Yellow Urine Clarity Sl. Cloudy Urine pH 6.0 Ur Specific [place] 1.015 Urine Protein 30 H Urine Glucose (UA) Normal Urine Ketones 50 H Urine Occult Blood 10 H Urine Nitrite Positive H Urine Bilirubin 3 H Urine Urobilinogen 4 H Ur Leukocyte Esterase 500 H Urine RBC 0-5 SEEN Urine WBC 10-25 SEEN Ur Squamous Epith Cells 0 SEEN Urine Bacteria 1+ Urine Mucus 1+ Discharge Plan Triage Chief Complaint: Complaint ED Provider: Michael Harp Dx/Rx/DC Orders Clinical Impression: UTI (urinary tract infection), Nausea & vomiting, Mild dehydration Instructions: ED Vomiting (Adult), ED UTIs Women Prescriptions: New ondansetron 4 mg tablet,disintegrating 4 mg PO TID PRN (Reason: nausea and vomiting) Qty: 21 0RF No Action liothyronine [Cytomel] 5 mcg Tablet 5 mcg PO DAILY propafenone 225 mg Tablet 225 mg PO Q8H pantoprazole 40 mg Tablet,Delayed Release (Dr/Ec) 40 mg PO BID ergocalciferol (vitamin D2) [Vitamin D2] 1,250 mcg (50,000 unit) Capsule 1,250 mcg PO QMONTH levothyroxine [Synthroid] 112 mcg Tablet 112 mcg PO DAILY metoprolol tartrate 25 mg Tablet 25 mg PO BID PreserVision AREDS-2 250-90-40-1 mg Capsule 1 tab PO BID acetaminophen 500 mg Tablet 1,000 mg PO TID Qty: 100 0RF Rx Instructions: Do not take more than 3000 mg Tylenol in a 24-hour period. aspirin 81 mg Tablet,Chewable 81 mg PO BID Qty: 60 0RF Rx Instructions: Take 81 mg aspirin twice daily for 4 weeks postoperatively for DVT prophylaxis meloxicam 7.5 mg Tablet 7.5 mg PO BID Qty: 60 0RF Rx Instructions: Do not take any other nonsteroidal anti-inflammatories while using meloxicam/Mobic. oxycodone 5 mg Tablet 5 - 10 mg PO Q4H PRN PRN (Reason: Pain Score 4-10) 5 Days Qty: 60 0RF sennosides-docusate sodium [Stool Softener-Stimulant Laxat] 8.6-50 mg Tablet 2 tab PO BID Qty: 20 0RF Rx Instructions: Take until first bowel movement, then as needed Primary Care Provider: Irvin Muller Referrals: Irvin Muller DO [Primary Care Provider] - Activity Restrictions/Additional Instructions: Please continue the Macrobid that was given to you by the urgent care to resolve your urinary tract infection. Add the Zofran as directed for any bouts of nausea or vomiting. If your culture results indicate your antibiotic needs to be changed you will be notified otherwise no news indicates you have been placed on the proper medication. Follow-up your family doctor for repeat evaluation and return to the ER should you have any further concerns Print Language: Beninese Disposition Disposition: Home, Self Care Discharge Date/Time: 12/21/23 00:12
[2023-12-21] VITALS: BP 128/44; PULSE 66; RESP 18; TEMP 36.6; O2SAT 98
== END 2023-12-21 00:12 | disposition home or self-care (01) ==
PROVIDERS: Emergency Provider Emergency Medicine; PCP Student in an Organized Health Care Education/Training Program; Visit Provider Emergency Medicine
DX: N39.0 Urinary tract infection, site not specified (principal); R11.2 Nausea with vomiting, unspecified; R51.9 Headache, unspecified; E86.0 Dehydration; Z87.891 Personal history of nicotine dependence; E03.9 Hypothyroidism, unspecified; K21.9 Gastro-esophageal reflux disease without esophagitis
CPT/HCPCS: 80053; 81001; 83690; 85025; 87077; 87086; 87088; 87186; 87631; 96365; 96366; 96375; 99283; J7030; A4216; J2405

== ENCOUNTER → 2024-02-23 | Outpatient (CLI) | payer MEDICARE, SELFPAY ==
[2024-02-23 12:15] LABS: Hematocrit 34.6 % (37-47); Hemoglobin 10.5 g/dL (12.0-15.0)
[2024-02-23 12:49] LABS: Ferritin 168 ng/mL (8-252); Iron 76 ug/dL (50-170)
[2024-02-24 15:09] LABS: Endomysial Antibody IgA Negative (Negative); Immunoglobulin A 199 mg/dL (87-352); t-Transglutaminase IgA <2 U/mL (0-3)
== END | disposition home or self-care (01) ==
PROVIDERS: PCP Student in an Organized Health Care Education/Training Program; Referring Provider Internal Medicine Gastroenterology; Visit Provider Internal Medicine Gastroenterology
DX: D50.9 Iron deficiency anemia, unspecified (principal)
CPT/HCPCS: 36415; 82728; 82784; 83516; 83540; 85014; 85018; 86255

== ENCOUNTER 2025-04-20 11:51 | Inpatient (IN) | payer MEDICARE, SELFPAY ==
[2025-04-20] VITALS (14 sets, daily range): BP systolic 109–154; BP diastolic 58–82; PULSE 55–72; RESP 12–20; TEMP 35.8–36.6; O2SAT 97–100; BMI 22.4; BMI 24.2
--- NOTE | 2025-04-20 12:05 | CT_ITS ---
PROCEDURE: STROKE BRAIN/HEAD WITHOUT CONT 04/20/2025 REASON FOR EXAM: NEURO DEFICIT, ACUTE, STROKE SUSPECTED. Clinical history of dizziness TECHNIQUE: Procedure Code: CTBR.ST Modality: CT Procedure: STROKE BRAIN/HEAD WITHOUT CONT Coronal and Sagittal reconstruction series were provided. One or more dose reduction techniques were used (e.g., Automated exposure control, adjustment of the mA and/or kV according to patient size, use of iterative reconstruction technique. RADIATION DOSE SUMMARY: DLP: 849.54 mGycm COMPARISON: None available. FINDINGS: No acute hemorrhage. No acute infarct. No significant mass effect or brain herniation. The ventricular system and sulci/fissures are within normal limits of size and configuration for the patient's stated age. No extra-axial fluid collection. The basal cisterns are patent. The mastoid air cells are clear. The paranasal sinuses are predominantly clear. The calvarium appears intact. Atherosclerotic calcification of the carotid siphons. ASPECTS: Acute middle cerebral artery (MCA) Territory Involved: N/A Caudate nuclei (C): 1 Lenticular nuclei (L): 1 Insular Cortex (I): 1 Posterior limb (IC): 1 Low ant. MCA (M1): 1 Low mid MCA (M2): 1 Low post. MCA (M3): 1 High ant. MCA (M4): 1 High mid MCA (M5): 1 High post. MCA (M6): 1 Total = 10 ASPECTS Reference: Scoring applies to left and right middle cerebral artery territories independently. When ischemia is limited to one side, the ASPECTS may be omitted from the uninvolved side. Of the ten zones, 4 are gangliocapsular and insular, 3 are in the low MCA territory, and 3 are in the mid MCA territory. Each zone is scored as 0 (evidence of early ischemic change) or 1 (no evidence of early ischemic change). Normal scans would score 10 on both sides while abnormal scans would score 0-9 on the affected side(s). Please note that there may be interobserver variability in ASPECTS and determination of clinical management is deferred to the Stroke Neurology and Neurointerventional team(s) CT/STROKE Brain/Head without Cont IMPRESSION: No CT evidence of acute intracranial hemorrhage, infarct, or significant mass e ffect. Communication notice: The the impression above was communicated by Dr. Alex Lopez by telephone to Adrienne Snider on 04/20/2025 at 12:27 pm with readback verification. Reading Location: [id number]
--- NOTE | 2025-04-20 12:05 | CT_ITS ---
PROCEDURE: STROKE CTA HEAD AND NECK W/CON 04/20/2025 REASON FOR EXAM: NEURO DEFICIT, ACUTE, STROKE SUSPECTED TECHNIQUE: Procedure Code: CTCTA.ST.HN Modality: CT Procedure: STROKE CTA HEAD AND NECK W/CON Multiplanar Sagittal and Coronal images were obtained. CONTRAST: Isovue 370 VOLUME: 75 mL One or more dose reduction techniques were used (e.g., Automated exposure control, adjustment of the mA and/or kV according to patient size, use of iterative reconstruction technique). RADIATION DOSE SUMMARY: CTDlvol: 16.98 mGy DLP: 655.8 mGycm COMPARISON: None. FINDINGS: Aortic Arch: Unremarkable. Brachiocephalic and Subclavians: Unremarkable RIGHT Carotid: Right CCA: Unremarkable. Right ICA: Unremarkable. Right ECA: Unremarkable. LEFT Carotid: Left CCA: Unremarkable. Left ICA: Unremarkable. Left ECA: Unremarkable. Vertebrals: Codominant. Arise from the subclavians. Both vertebrals form the basilar. RIGHT Vertebral: Unremarkable. LEFT Vertebral: Unremarkable. Anatomy: [place] anatomy is normal. Aneurysm or avm: No intracranial aneurysms or large vascular malformations are identified. Anterior cerebral arteries: Unremarkable: Middle cerebral arteries: Unremarkable. Basilar artery: Unremarkable. Posterior cerebral arteries: origins. Otherwise unremarkable. No significant stenosis. Other major branches of the posterior circulation: Unremarkable. Major venous structures: Unremarkable. Other findings: Neck: No lymphadenopathy. Lungs: Lung apices are clear. Bones: Bones are unremarkable. CT/STROKE CTA Head AND Neck W/Con IMPRESSION: No hemodynamically significant stenosis in the head and neck. No aneurysm. Reading Location: [facility]
--- NOTE | 2025-04-20 12:05 | EKG12_ITS ---
Test Reason : STROKE TEAM Blood Pressure : */* mmHG Vent. Rate : 65 BPM Atrial Rate : 65 BPM P-R Int : 194 ms QRS Dur : 102 ms QT Int : 408 ms P-R-T Axes : 46 12 8 degrees QTcB Int : 424 ms Normal sinus rhythm Normal ECG Confirmed by Alexi Stewart ([id number]), editorial assistant FRANCISCO CURRIE ([id number]) on 04/24/2025 6:14:45 AM Referred By: Confirmed By: Alexi Stewart
--- OUTSIDE RECORDS SUMMARY | 2025-04-20 12:15 | XMS RPT_ITS | CCD ---
Author Organization [facility] Care Team Providers Care Synthetic Department Supervisor Name Role Phone Jesse Johnsonleen Unavailable Unavailable Saumya Woodall Unavailable Unavailable Aida Gil Unavailable Unavailable Saumya Parks Unavailable Unavailable Aida Gil Unavailable Unavailable Chi Zamora Unavailable Unavailable Dez Johnson Unavailable Unavailable Patrick Jc Unavailable Unavailable Aida Gil Unavailable Unavailable Unavailable NADIRA AMIN, REMIGIO Deleon Primary Care Physician SRIDHAR MONTERO DO Primary Care Physician [phone] Gaye Rowell PA-C Unavailable Sridhar Romo MD Unavailable [phone] Berto Hannon Unavailable Todd Reyes MD Unavailable [phone] Kylah ZAMAN MD, Michael Primary Care Provider [phone] Gaye Rowell PA-C Unavailable Sridhar Romo MD Unavailable [phone] Berto Hannon Unavailable [phone] Todd Reyes MD Unavailable [phone] Kylah ZAMAN MD, Michael Primary Care Provider [phone] Kylah ZAMAN DO, Michael Primary Care Provider [phone] Yolanda Cash MD Unavailable Berto Hannon Unavailable Todd Reyes MD Unavailable Halko IV, DO, Delfina Primary Care Provider Yolanda Cash MD Unavailable Halko IV, DO, Delfina Primary Care Provider YOLANDA CASH MD Attending Unavailable HALKO DO, SRIDHAR Primary Care Unavailable HALKO DO, SRIDHAR Attending Unavailable HALKO DO, SRIDHAR Primary Care Unavailable YOLANDA CASH MD Attending Unavailable HALKO DO, SRIDHAR Primary Care Unavailable [facility], [facility] Attending Unavailabl e HALKO DO, SRIDHAR Primary Care Unavailable YOLANDA CASH MD Attending Unavailable HALKO DO, SRIDHAR Primary Care Unavailable Yolanda Cash MD Unavailable Enrique Bass Referring Unavailable ToneybourEnrique Attending Unavailable Halko, Sridhar Primary Care Unavailable Michael Harp Attending Unavailable Halko, Sridhar Primary Care Unavailable Yolanda Cash MD Unavailable [phone] PROVIDER, UNKNOWN Referring Unavailable HALKO IV, DELFINA Primary Care Unavailable JACIEL HURD Referring Unavailable HALKO IV, DELFINA Primary Care Unavailable HALKO IV, DELFINA Primary Care Unavailable ROMAR DO, DR BANDA Attending Unavailable HALKO DO, SRIDHAR Primary Care Unavailable YOLANDA CASH MD Attending Unavailable HALKO DO, SRIDHAR Primary Care Unavailable HALKO DO, SRIDHAR Primary Care Unavailable HALKO DO, SRIDHAR Attending Unavailable ENRIQUE BASS Attending Unavailable HALKO DO, SRIDHAR Primary Care Unavailable EMI DOMARGARITA Attending Unavailable HALKO DO, SRIDHAR Primary Care Unavailable EMI DOMARGARITA Attending Unavailable HALKO DO, SRIDHAR Primary Care Unavailable YOLANDA CASH MD Attending Unavailable HALKO DO, SRIDHAR Primary Care Unavailable HALKO DO, SRIDHAR Primary Care Unavailable HALKO DO, SRIDHAR Attending Unavailable HALKO DO, SRIDHAR Primary Care Unavailable ROMTABITHA DO, DR BANDA Attending Unavailable JACIEL HURD Attending Unavailable HALKO IV, DELFINA Primary Care Unavailable ZUNIGA, LINDSEY Referring Unavailable HALKO IV, DELFINA Primary Care Unavailable ZUNIGA, LINDSEY Referring Unavailable HALKO IV, DELFINA Primary Care Unavailable SATISH FLYNN Attending Unavailable ELIZABETH ROGER Referring Unavailable HALKO IV, DELFINA Primary Care Unavailable ZUNIGA, LINDSEY Attending Unavailable ZUNIGA, LINDSEY Referring Unavailable HALKO IV, DELFINA Primary Care Unavailable ZUNIGA, LINDSEY Referring Unavailable HALKO IV, DELFINA Primary Care Unavailable ZUNIGA, LINDSEY Referring Unavailable HALKO IV, DELFINA Primary Care Unavailable ZUNIGA, LINDSEY Referring Unavailable HALKO IV, DELFINA Primary Care Unavailable ZUNIGA, LINDSEY Referring Unavailable HALKO IV, DELFINA Primary Care Unavailable ZUNIGA, LINDSEY Referring Unavailable HALKO IV, DELFINA Primary Care Unavailable ZUNIGA, LINDSEY Referring Unavailable HALKO IV, DELFINA Primary Care Unavailable ZUNIGA, LINDSEY Referring Unavailable HALKO IV, DELFINA Primary Care Unavailable JACIEL HURD Attending Unavailable HALKO IV, DELFINA Primary Care Unavailable VITEBSKIY, CHI ALEKSANDROMATTY Admitting Unavailable HALKO IV, DELFINA Primary Care Unavailable ROSSANA SEPULVEDA Attending Unavailable VITEBSKIY, CHI ALEKSANDROVICH Attending Unavailable HALKO IV, DELFINA Primary Care Unavailable VITEBSKIY, CHI ALEKSANDROVICH Referring Unavailable HALKO IV, DELFINA Primary Care Unavailable VITEBSKIY, CHI ALEKSANDROVICH Referring Unavailable HALKO IV, DELFINA Primary Care Unavailable VITEBSKIY, CHI ALEKSANDROVICH Attending Unavailable HALKO IV, DELFINA Primary Care Unavailable Allergies Allergy Classification Reported Allergen(s) Allergy Type Date of Onset Reaction(s) Facility Bee/Wasp/Ant Venom (1 source) apis mellifera venom Substance Allergy Other [facility] Work Phone: (20 sources) apis mellifera venom; Translations: [BEE STING] allergy to substance 6 Anaphylaxis [facility] Work Phone: (20 sources) Adhesive Tape Allergy to substance Eruption of skin (disorder) [facility] (20 sources) Bee/Wasp/Ant venom Allergy to substance Anaphylaxis (disorder) [facility] (20 sources) Codeine; Translations: [codeine] Drug Allergy 7 Headache (finding), Intolerance [facility] (20 sources) Cortisone; Translations: [cortisone] Drug Allergy 0 Blushing, function (observable entity), Other: See Comments [facility] (20 sources) Hypochlorite; Translations: [sodium hypochlorite topical] Drug Allergy Skin irritation (disorder) [facility] (20 sources) Metal unspecified Allergy to substance Unknown (qualifier value) [facility] (20 sources) Adhesive Tape; Translations: [ADHESIVE TAPE (ROSINS)] Allergy to substance 6 Rash, Itching [facility] (20 sources) Hypochlorite; Translations: [SODIUM HYPOCHLORITE SOLUTION] Drug Allergy 0 Unknown [facility] (20 sources) nickel; Translations: [NICKEL] Drug Allergy 0 Unknown [facility] (20 sources) Vanadium; Translations: [VANADIUM] Drug Allergy 0 Unknown [facility] (20 sources) Adhesive Tape-Silicones; Translations: [ADHESIVE TAPE-SILICONES] Drug Allergy Unknown [facility] (20 sources) Bee Venom Protein (Honey Bee); Translations: [BEE VENOM PROTEIN (HONEY BEE)] Drug Allergy Anaphylaxis [facility] Work Phone: (20 sources) Bees; Translations: [BEES] Allergy to substance 4 Anaphylaxis [facility] Work Phone: (2 sources) Adhesive Tape; Translations: [adhesive tape] Propensity to adverse reactions 2 Rash [facility] (1 source) Codeine Drug Allergy 4 [facility] (1 source) Hypochlorite Drug Allergy 4 [facility] (1 source) nickel Drug Allergy 4 [facility] Medications Current Medications Medication Drug Class(es) Dates Sig (Normalized) Sig (Original) acetaminophen 500 mg oral tablet (5 sources) Start: 03-08-2024 End: 09-04-2024 acetaminophen 500 mg oral tablet Dose : 1,000 mg = 2 tab(s), Oral, q8h, X 30 day(s), # 180 tab(s), 5 Refill(s), 09/04/24 9:10:00 AM EDT, [id number], 168.5, cm, 03/08/24 8:28:00 EST, Height, kg, 03/08/24 8:28:00 EST, Dosing Weight Start Date: 03/08/24 Stop Date: 09/04/24 Status: Ordered Quantity: 180.0 Unit: tab(s) Repeat number: 6 Start: 06-26-2021 take 3000 mg by mout h three times daily Acetaminophen Active 1000 MG PO THREE TIMES A DAY June 26, 2021 12:00am Do not take more than 3000 mg Tylenol in a 24-hour period. acetaminophen 325 mg / HYDROcodone bitartrate 5 mg oral tablet (15 sources) Opioid Agonist Start: 12-21-2024 End: 01-20-2025 take 1 tablet by mouth twice daily [place] 325- 5 mg oral tablet Dose = 1 tab(s), Oral, BID, fill on or after 12/28/2024, X 30 day(s), # 60 tab(s), 0 Refill(s), [id number], Knee osteoarthritis, 168.5, cm, 12/21/24 8:33:00 EDT, Height, 68.5, kg, 12/21/24 8:33:00 EDT, Dosing Weight Start Date: 12/21/24 Stop Date: 01/20/25 Status: Ordered Medication Dispense Status: Completed Quantity: 60.0 Unit: tab(s) Total Allowed Fills: 1 Fills Dispensed: 0 Indications: Unilateral primary osteoarthritis, unspecified knee; Start: 09-21-2024 End: 10-21-2024 take 1 tablet by mouth twice daily [place] 325- 5 mg oral tablet Dose = 1 tab(s), Oral, BID, fill on or after 12/07/2024, X 30 day(s), # 60 tab(s), 0 Refill(s), Pharmacy: [facility]/pharmacy #[id number], Knee osteoarthritis, 168.5, cm, 09/21/24 8:36:00 EDT, Height, 70.4, kg, 09/21/24 8:36:00 EDT, Dosing Weight Start Date: 09/21/24 Stop Date: 10/21/24 Status: Ordered Quantity: 60.0 Unit: tab(s) Repeat number: 1 Indications: Unilateral primary osteoarthritis, unspecified knee; Start: 06-16-2024 acetaminophen- hydrocodone 325 mg-5 mg oral tablet Dose = 1 tab(s), Oral, BID, PRN for pain, 0 Refill(s), 72 Start Date: 06/16/24 Status: Ordered Repeat number: 1 Start: 03-08-2024 take 1 tablet by lisset th every six hours as needed HYDROcodone-acetaminophen (NORCO) 5-325 mg per tablet Take 1 tablet by mouth every 6 hours as needed. TAKE 1 TABLET BY MOUTH EVERY 12 HOURS NEEDED FOR PAIN 03/08/2024 Active acetaminophen 250 mg / ibuprofen 125 mg oral tablet (20 sources) Nonsteroidal Anti-inflammatory Drug take 2 tablets by mouth every twelve hours as needed ibuprofen-acetaminophen (ADVIL DUAL ACTION) 125-250 mg tab Take 2 tablets by mouth twice daily as needed. Active Comment on above: Take 2 tablets by mo uth twice daily as needed. apixaban 5 mg oral tablet (16 sources) Factor Xa Inhibitor Start : 09-19 End: 03-18 Eliquis 5 mg oral tablet Dose : 5 mg = 1 tab(s), Oral, BID, 0 Refill(s), 68.2 Start Date: 09/21/24 Status: Ordered Medication Dispense Status: Completed Total Allowed Fills: 1 Fills Dispensed: 0 aspirin 81 mg delayed release oral tablet (20 sources) Platelet Aggregation Inhibitor, Nonsteroidal Anti-inflammatory Drug Start : 07-11 Aspi-Cor 81 mg oral delayed release tablet Dose : 81 mg = 1 tab(s), Oral, qDay, 0 Refill(s) Start Date: 07/12/23 Status: Ordered Start: 06-26-2021 take 81 mg by mouth twice daily Aspirin Active 81 MG PO TWICE A DAY 60 June 26, 2021 12:00am Take 81 mg aspirin twice daily for 4 weeks postoperatively for DVT prophylaxis Comment on above: Take 81 mg by mouth once daily. calcitriol 0.95744 mg oral capsule (20 sources) Vitamin D3 Analog Start: 11-20-2022 calcitriol 0.25 mcg oral capsule Dose : 0.25 mcg = 1 cap(s), Oral, Wed/Wed/Wed, 0 Refill(s) Start Date: 11/20/22 Status: Ordered Medication Dispense Status: Completed Total Allowed Fills: 1 Fills Dispensed: 0 calcitriol (TEOFILO LTROL) 0.25 mcg capsule TAKE 1 PILL BY MOUTH WEDNESDAY, WEDNESDAY, WEDNESDAY Active cephalexin 250 mg oral capsule (20 sources) Cephalosporin Antibacterial Start: 01-28-2024 End: 02-02-2024 cephalexin 250 mg oral capsule Dose : 250 mg = 1 cap(s), Oral, q12h, X 5 day(s), # 10 cap(s), 0 Refill(s), 02/02/24 9:01:00 AM EDT, Pharmacy: [facility]/pharmacy #[id number], 168.5, cm, 01/14/24 9:28:00 EDT, Height, 70, kg, 01/28/24 8:36:00 EDT, Dosing Weight Start Date: 01/28/24 Stop Date: 02/02/24 Status: Ordered cholecalciferol 1.25 mg oral capsule (20 sources) Vitamin D Start: 05-07-2015 End: 10-08-2021 take 1 capsule by mouth every month cholecalciferol, Vitamin D3, (VITAMIN D3) 1,250 mcg (50,000 unit) cap capsule Take 50,000 Units by mouth once every month. 05/07/2015 Active Comment on above: Take by mouth. ciprofloxacin 250 mg oral tablet (3 sources) Quinolone Antimicrobial Start: 12-22-2021 End: 12-29-2021 Cipro 250 mg oral tablet Dose : 250 mg = 1 tab(s), Oral, q12h, X 7 day(s), # 14 tab(s), 0 Refill(s), 12/29/21 13:29:00 EDT, Pharmacy: [facility]/pharmacy #[id number], 172, cm, 12/19/21 10:26:00 EDT, Height, 73.4 Start Date: 12/22/21 Stop Date: 12/29/21 Status: Ordered Start: 07-08-2021 End: 07-15-2021 Cipro 250 mg oral tablet Dos e : 250 mg = 1 tab(s), Oral, q12h, X 7 day(s), # 14 tab(s), 0 Refill(s), 07/15/21 12:08:00 EDT, [id number], 170, cm, 07/08/21 11:53:00 EDT, Height, 73.2, kg, 07/08/21 11:53:00 EDT, Dosing Weight Start Date: 07/08/21 Stop Date: 07/15/21 Status: Ordered Start: 11-28-2018 take 1 tablet by lisset twice daily Ciprofloxacin HCl - 500 MG Oral Tablet Take 1 tablet twice daily for 7 days Quantity: 14 Refills: 0 Aida Gil MD Start : 28-Nov-2018 Active DME MISCellaneous (13 sources) Start: 05-06-2022 DME MISCellane ous See Instructions, dispense 100 2x3 inches telfa pads; dx S41.111A., # 100 EA, 1 Refill(s), [id number], Skin tear of right upper extremity, 172, cm, 05/06/22 14:21:00 EST, Height, 73 Start Date: 05/06/22 Status: Ordered Quantity: 100.0 Unit: EA Repeat number: 2 Indication: Laceration without foreign body of right upper arm, initial encounter Start: 05-06-2022 DME MISCellane ous See Instructions, dispense 100 2x3 inches telfa pads; dx S41.111A., # 100 EA, 1 Refill(s), [id number], Skin tear of right upper extremity, 172, cm, 05/06/22 14:21:00 EST, Height, 73 Start Date: 05/06/22 Status: Ordered docusate sodium 50 mg / sennosides, shelter 8.6 mg oral tablet (1 source) Start: 06-26-2021 Sennosides-Doc usate Sodium (Stool Softener-Stimulant Laxat) 8.6-50 mg Tablet Active 2 TABLET PO TWICE A DAY June 26, 2021 12:00am Take until first bowel movement, then as needed doxycycline hyclate 100 mg oral capsule (2 sources) Tetracycline-class Drug Start: 05-06-2022 End: 05-16-2022 doxycycline hyclate 100 mg oral capsule Dose : 100 mg = 1 cap(s), Oral, BID, X 10 day(s), # 20 cap(s), 0 Refill(s), 05/16/22 14:54:00 EST, [id number], 172, cm, 05/06/22 14:21:00 EST, Height, 73 Start Date: 05/06/22 Stop Date: 05/16/22 Status: Ordered [id number] 0.3 ml EPINEPHrine 1 mg/ml auto-injector (20 sources) alpha-Adrenergic Agonist, beta-Adrenergic Agonist, Catecholamine Start: 12-21-2024 EpiPen 2-Eze 0.3 mg injectable kit Dose : 0.3 mg = 1 kit, Intramuscular, AsDirected, PRN Allergic reaction, dispense one 2 pack auto injector kit, # 1 kit(s), 1 Refill(s), [id number], 168.5, cm, 12/21/24 8:33:00 EDT, Height, kg, 12/21/24 8:33:00 EDT, Dosing Weight Start Date: 12/21/24 Status: Ordered Medication Dispense Status: Completed Quantity: 1.0 Unit: kit(s) Total Allowed Fills: 2 Fills Dispensed: 0 Start: 01-11-2023 EpiPen 2-Eze 0 .3 mg injectable kit Dose : 0.3 mg = 1 kit, Intramuscular, AsDirected, PRN Allergic reaction, dispense one 2 pack auto injector kit, # 1 kit(s), 1 Refill(s), [id number], 171, cm, 01/11/23 13:50:00 EDT, Height, kg, 01/11/23 13:50:00 EDT, Dosing Weight Start Date: 01/11/23 Status: Ordered Quantity: 1.0 Unit: kit(s) Repeat number: 2 Start: 06-06-2021 EpiPen 2-Eze 0 .3 mg injectable kit Dose : 0.3 mg = 1 kit, Intramuscular, AsDirected, PRN Allergic reaction, dispense one 2 pack auto injector kit, # 1 kit(s), 1 Refill(s), [id number], 170, cm, 06/06/21 10:07:00 EST, Height, kg, 06/06/21 10:07:00 EST, Dosing Weight Start Date: 06/06/21 Status: Ordered Start: 06-06-2021 EpiPen 2-Eze 0 .3 mg injectable kit Dose : 0.3 mg = 1 kit, Intramuscular, AsDirected, PRN Allergic reaction, dispense one 2 pack auto injector kit, # 1 kit(s), 1 Refill(s), Pharmacy: [facility]/pharmacy #[id number], 170, cm, 06/06/21 10:07:00 EST, Height, kg, 06/06/21 10:07:00 EST, Dosing Weight Start Date: 06/06/21 Status: Ordered Start: 10-06-2017 EPINEPHrine 0. 3 MG/0.3ML Injection Solution Auto-injector INJECT 0.3ML INTRAMUSCULARLY DIRECTED. Quantity: 1 Refills: 0 Ordered: 06-Oct-2017 Saumya Parks DO Start : 06-Oct-2017 Active EPINEPHrine (EPI PEN) 0.3 mg/0.3 mL auto-injector Inject 0.3 mg intramuscularly as needed. Active Comment on above: EpiPen 0.3 mg/0.3 mL (1:1,000) IM Injector ergocalciferol 1.25 mg oral capsule (4 sources) Provitamin D2 Compound Start: 06-06-19 End: 10-09-19 take 1 capsule by mouth every month Ergocalciferol (Vitamin D2) (Vitamin D2) 1,250 mcg (50,000 unit) Capsule Active 1250 MCG PO EVERY MONTH June 11, 2021 12:00am Start: 06-06-2021 Vitamin D2 1.2 5 mg (50,000 intl units) oral capsule Dose : 50,000 International_Unit = 1 cap(s), Oral, qWeek, # 4 cap(s), 0 Refill(s) Start Date: 06/06/21 Status: Ordered Comment on above: Take by mouth. ferrous sulfate 325 mg delayed release oral tablet (5 sources) Start: 4 End: 4 ferrous sulfate 325 mg (65 mg elemental iron) oral delayed release tablet Dose : 325 mg = 1 tab(s), Oral, BID, # 60 tab(s), 0 Refill(s), Pharmacy: [facility]/pharmacy #[id number], 171.2, cm, 07/12/23 13:03:00 EDT, Height, kg, 07/12/23 13:03:00 EDT, Dosing Weight Start Date: 10/13/23 Status: Ordered ibuprofen 200 mg oral tablet (20 sources) Nonsteroidal Anti-inflammatory Drug Start: 2 take 1 tablet by mouth every six hours Advil 200 mg oral tablet See Instructions, tab(s) mg Oral q6hr, 0 Refill(s) Start Date: 06/06/21 Status: Ordered Medication Dispense Status: Completed Total Allowed Fills: 1 Fills Dispensed: 0 inulin 2000 mg chewable tablet (20 sources) inulin (FIBER GUMMIES) 2 gram chew Take 1 Each by mouth as needed. Active Comment on above: Take by mouth. 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 90 tablet 3 05/02/2020 Active Start: 06-01-2018 Synthroid 100 MCG Oral Tablet Quantity: 0 Refills: 0 Ordered: 01-Jun-2018 Aida Gil MD Start : 01-Jun-2018 Active Start: 06-01-2018 Synthroid 100 MCG Oral Tablet Refills: 0 Aida Gil MD Start : 01-Jun-2018 Active Comment on above: Take 1 tablet by lisset th once daily. liothyronine sodium 0.025 mg oral tablet (20 sources) l-Triiodothyronine Start: 12-23-2023 liothyronine 25 mcg oral tablet Dose : 25 mcg = 1 tab(s), Oral, Daily, 0 Refill(s) Start Date: 12/23/23 Status: Ordered Medication Dispense Status: Completed Total Allowed Fills: 1 Fills Dispensed: 0 Start: 06-11-2021 take 1 tablet by lisset once daily Liothyronine (Cytomel) 5 mcg Tablet Active 5 MCG PO DAILY June 11, 2021 12:00am Start: 06-06-2021 Cytomel 5 mcg oral tablet Dose : 5 mcg = 1 tab(s), Oral, Daily, # 30 tab(s), 0 Refill(s) Start Date: 06/06/21 Status: Ordered Start: 05-02-2020 End: 07-22-2021 take 1 tablet by mouth twice daily liothyronine (CYTOMEL) 5 mcg tablet Indications: 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 180 tablet 07/22/2021 Active take 1 tablet by lisset once daily liothyronine (CYTOMEL) 25 mcg tablet Take 25 mcg by mouth once daily. Active Comment on above: Take 1 tablet by lisset twice daily. meloxicam 7.5 mg oral tablet (8 sources) Nonsteroidal Anti-inflammatory Drug Start: take 1 tablet by mouth once daily at mealtime meloxicam 7.5 mg oral tablet 1 tab(s), Oral, qDay, TAKE WITH FOOD OR MILK., # 30 tab(s), 0 Refill(s), Pharmacy: [id number], 170.2, cm, 11/20/22 9:24:00 EDT, Height, kg, 11/20/22 9:24:00 EDT, Dosing Weight Start Date: 12/18/22 Status: Ordered Start: 06-26-2021 meloxicam 7.5 mg oral tablet Dose : 7.5 mg = 1 tab(s), Oral, qDay, # 30 tab(s), 0 Refill(s) Start Date: 07/08/21 Status: Ordered Start: 06-01-2018 take 1 tablet by lisset once daily Meloxicam 15 MG Oral Tablet TAKE 1 TABLET BY MOUTH EVERY DAY Quantity: 30 Refills: 1 Aida Gil MD Start : 01-Jun-2018 Active metoprolol tartrate 25 mg oral tablet (20 sources) beta-Adrenergic Herb Start: 08-12-2020 End: 03-31-2024 metoprolol tartrate 25 mg oral tablet Dose : 25 mg = 1 tab(s), Oral, BID, # 60 tab(s), 0 Refill(s) Start Date: 06/06/21 Status: Ordered Medication Dispense Status: Completed Quantity: 60.0 Unit: tab(s) Total Allowed Fills: 1 Fills Dispensed: 0 Comment on above: Take 1 tablet by lisset th twice daily. TAKE ONE TABLET BY [facility] TWO TIMES A DAY TAKE 1 TABLET BY LISSET TH TWICE A DAY multivitamin tablet (20 sources) take 1 tablet by mouth once daily multivitamin tablet Take 1 tablet by mouth once daily. Active take 1 tablet by mouth once sarah y multivitamin tablet Take 1 tablet by mouth once daily. 0 Active Comment on above: Take 1 tablet by lisset once daily. nitrofurantoin, macrocrystals 25 mg / nitrofurantoin, monohydrate 75 mg oral capsule (3 sources) Nitrofuran Antibacterial Start: 06-16-2024 End: 06-21-2024 nitrofurantoin macrocrystals-monohydrat e 100 mg oral capsule Dose : 100 mg = 1 cap(s), Oral, BID, Take with food. Drink plenty of fluids., X 5 day(s), # 10 cap(s), 0 Refill(s), 06/21/24 12:09:00 PM EST, Pharmacy: [facility]/pharmacy #[id number], 168.5, cm, 06/16/24 11:33:00 EST, Height, 72, kg, 06/16/24 11:33:00 EST, Dosing Weight Start Date: 06/16/24 Stop Date: 06/21/24 Status: Ordered Quantity: 10.0 Unit: cap(s) Repeat number: 1 Start: 12-19-2023 End: 12-26-2023 take 1 capsule by mouth twice daily nitrofurantoin monohydrate and macrocrystal (MACROBID) 100 mg capsule Indications: Dysuria , Urinary frequency , Urinary urgency Take 1 capsule by mouth two times a day for 7 days. 14 capsule 12/19/2023 12/26/2023 Active Start: 10-31-2019 take 1 capsule by mo [facility] once daily Nitrofurantoin Monohyd Macro 100 MG Oral Capsule TAKE 1 CAPSULE EVERY 12 HOURS DAILY. Quantity: 14 Refills: 0 Ordered: 16-Apr-2020 Aida Gil MD Start : 31-Oct-2019 Active oxyCODONE hydrochloride 5 mg oral tablet (6 sources) Opioid Agonist Start: 07-08-2021 oxyCODONE 5 mg oral tablet ( IMMEDIATE release ) Dose : 5 mg = 1 tab(s), Oral, q6h, PRN for pain, # 12 tab(s), 0 Refill(s), 74 Start Date: 07/08/21 Status: Ordered Start: 06-26-2021 take 5-10 mg by mout h every four hours as needed Oxycodone Active 5 - 10 MG PO EVERY 4 HOURS NEEDED 60 5 June 26, 2021 pantoprazole 40 mg delayed release oral tablet (20 sources) Proton Pump Inhibitor Start: 08-10-2024 End: 02-06-2025 pantoprazole 40 mg oral enteric coated tablet Dose : 40 mg = 1 tab(s), Oral, qDay, # 90 tab(s), 1 Refill(s) Start Date: 08/10/24 Stop Date: 02/06/25 Status: Ordered Quantity: 90.0 Unit: tab(s) Repeat number: 2 Start: 08-28-2021 End: 07-06-2024 take 1 tablet by mouth once daily pantoprazole DR (PROTONIX) 40 mg tablet Take 40 mg by mouth once daily. 08/28/2021 Active Start: 06-06-2021 End: 07-06-2024 pantoprazole 40 mg oral ente sallie coated tablet Dose : 40 mg = 1 tab(s), Oral, qDay, # 90 tab(s), 3 Refill(s), Pharmacy: [facility]/pharmacy #[id number], 171.2, cm, 07/12/23 13:03:00 EDT, Height, kg, 07/12/23 13:03:00 EDT, Dosing Weight Start Date: 07/12/23 Stop Date: 07/06/24 Status: Ordered Quantity: 90.0 Unit: tab(s) Repeat number: 4 Comment on above: Take 40 mg by mouth twice daily. perflutren lipid microspheres 1.3 mL in NaCl (PF) 0.9% 10 mL injection (DEFINITY) (1 source) Start: 025 End: 025 perflutren lipid microspheres 1.3 mL in NaCl (PF) 0.9% 10 mL injection (DEFINITY) phenazopyridine hydrochloride 200 mg oral tablet (1 source) Start: End: phenazopyridine 200 mg oral tablet Dose : 200 mg = 1 tab(s), Oral, TIDPC, PRN as needed for urinary discomfort, with food, X 2 day(s), # 6 tab(s), 0 Refill(s), 06/18/24 12:12:00 PM EST, Pharmacy: [facility]/pharmacy #[id number], 168.5, cm, 06/16/24 11:33:00 EST, Height, kg, 06/16/24 11:33:00 EST, Dosing Weight Start Date: 06/16/24 Stop Date: 06/18/24 Status: Ordered Quantity: 6.0 Unit: tab(s) Repeat number: 1 polyethylene glycol [id number] [id number] mg / potassium chloride 2970 mg / sodium bicarbonate 6740 mg / sodium chloride 5860 mg / sodium sulfate 96435 mg powder for oral solution (1 source) Osmotic Laxative Start: End: peg 3350-Electrolytes (GOLYTELY) 236-22.74-6.74 -5.86 gram suspension Indications: Personal history of colon cancer Take 4,000 mL by mouth one time only for 1 dose. Refer to printed prep instructions from your provider. 4000 mL 07/21/2024 07/21/2024 Active PreserVision AREDS 2 oral capsule (16 sources) Start: take 1 capsule by mouth once daily PreserVision AREDS 2 oral capsule Dose = 2 cap(s), Oral, qDay, 0 Refill(s) Start Date: 06/06/21 Status: Ordered 125 ml sodium chloride 9 mg/ml prefilled syringe (1 source) Start: End: sodium chloride 0.9 % (flush) 10 mL (BD POSIFLUSH) sulfamethoxazole 800 mg / trimethoprim 160 mg oral tablet (1 source) Dihydrofolate Reductase Inhibitor Antibacterial, Sulfonamide Antimicrobial Start: End: take 1 tablet by mouth every twelve hours Bactrim DS 800 mg-160 mg oral tablet Dose = 1 tab(s), Oral, q12h, X 5 day(s), # 10 tab(s), 0 Refill(s), Pharmacy: [facility]/pharmacy #[id number], 168.5, cm, 06/16/24 11:33:00 EST, Height, 72, kg, 06/16/24 11:33:00 EST, Dosing Weight Start Date: 06/17/24 Stop Date: 06/22/24 Status: Ordered Quantity: 10.0 Unit: tab(s) Repeat number: 1 vit A/vit C/vit E/zinc/copper (ICAPS AREDS ORAL) (20 sources) take 1 tablet by mouth twice daily vit A/vit C/vit E/zinc/copper (ICAPS AREDS ORAL) Take 1 tablet by mouth two times a day. Active vit A/vit C/vit E/zinc/copper (ICAPS AREDS ORAL) Take by mouth. Active vit A/vit C/vit E/zinc/copper (ICAPS AREDS ORAL) Take by mouth. 0 Active Comment on above: Take by mouth. Vit C,R-Hy-Mixhd-Lutein-Zeax an (Preservision Areds-2) 250-90-40-1 mg Capsule (1 source) Start: 06-11-2021 Vit C,W-Nj-Sjbqs-Lutein-Zeaxan (Preservision Areds-2) 250-90-40-1 mg Capsule Active 1 TABLET PO TWICE A DAY June 11, 2021 12:00am Vitamin D2 1.25 mg (50,000 intl units) oral capsule (20 sources) Start: 06-06-2021 Vitamin D2 1.2 5 mg (50,000 intl units) oral capsule Dose : 50,000 International_Unit = 1 cap(s), Oral, qmonth, # 4 cap(s), 0 Refill(s) Start Date: 06/06/21 Status: Ordered Medication Dispense Status: Completed Quantity: 4.0 Unit: cap(s) Total Allowed Fills: 1 Fills Dispensed: 0 Start: 06-06-2021 Vitamin D2 1.2 5 mg (50,000 intl units) oral capsule Dose : 50,000 International_Unit = 1 cap(s), Oral, qmonth, # 4 cap(s), 0 Refill(s) Start Date: 06/06/21 Status: Ordered Quantity: 4.0 Unit: cap(s) Repeat number: 1 Start: 06-06-2021 Vitamin D2 1.2 5 mg (50,000 intl units) oral capsule Dose : 50,000 International_Unit = 1 cap(s), Oral, qmonth, # 4 cap(s), 0 Refill(s) Start Date: 06/06/21 Status: Ordered Start: 06-06-2021 Vitamin D2 1.2 5 mg (50,000 intl units) oral capsule Dose : 50,000 International_Unit = 1 cap(s), Oral, qWeek, # 4 cap(s), 0 Refill(s) Start Date: 06/06/21 Status: Ordered Vitamin D3 1250 mcg (50,000 intl units) oral capsule (2 sources) Start: 12-21-2024 Vitamin D3 125 0 mcg (50,000 intl units) oral capsule Dose : 1,250 mcg = 1 cap(s), Oral, qmonth, # 12 cap(s), 0 Refill(s) Start Date: 12/21/24 Status: Ordered Medication Dispense Status: Completed Quantity: 12.0 Unit: cap(s) Total Allowed Fills: 1 Fills Dispensed: 0 Reclast (15 sources) Bisphosphonate Start: 12-19-2021 Reclast See In structions, mg Intravenous Yearly, 0 Refill(s) Start Date: 12/19/21 Status: Ordered Repeat number: 1 Start: 12-19-2021 Reclast See In structions, mg Intravenous Yearly, 0 Refill(s) Start Date: 12/19/21 Status: Ordered Start: 12-19-2021 take 1 mg intravenously once R eclast See Instructions, mg Intravenous Once, 0 Refill(s) Start Date: 12/19/21 Status: Ordered Completed/Discontinued Medications Medication Drug Class(es) Dates Sig (Normalized) Sig (Original) PreserVision AREDS CAPS (1 source) Vitamin C PreserVision ARE DS CAPS Refills: 0 Active azithromycin 250 mg oral tablet (1 source) Macrolide Antimicrobial Start: 04-25-2020 Azithromycin 250 MG Oral Tablet TAKE 2 TABLETS ON DAY 1 THEN TAKE 1 TABLET A DAY FOR 4 DAYS. Quantity: 1 Refills: 0 Ordered: 25-Apr-2020 Aida Gil MD Start : 25-Apr-2020 Active benzonatate 100 mg oral capsule (1 source) Non-narcotic Antitussive Start: 04-22-2020 take 1-2 capsules by mouth every eight hours as needed for cough Benzonatate 100 MG Oral Capsule TAKE 1-2 CAPSULES EVERY 8 HOURS NEEDED for cough. Quantity: 30 Refills: 0 Ordered: 22-Apr-2020 Pradeep Caro MD Start : 22-Apr-2020 Active calcium chloride 0.0014 meq/ml / potassium chloride 0.004 meq/ml / sodium chloride 0.103 meq/ml / sodium lactate 0.028 meq/ml injectable solution (1 source) Start: 08-03-2024 End: 08-03-2024 take 30 mL intravenously every hour 30 mL/hr, INTRAVENOUS, CONTINUOUS, Starting on Viktoria 4//25 at 1130, Until Viktoria 4/25 at 1213, Preprocedure diphenhydrAMINE (1 source) Histamine-1 Receptor Antagonist Start: 08-03-2024 End: 08-03-2024 12.5-50 mg, INTRAVENOUS, DIRECTED, Starting on Viktoria 4 at 1200, Until Viktoria 4//25 at 1559, DOSING DIRECTED BY PHYSICIAN FOR PROCEDURAL SEDATION ONLY, Intraprocedure Disability Placard (2 sources) Start: 07-13-2018 Disability Placard Handicapped Placard for Lifetime disability ; Expires 5 years Quantity: 1 Refills: 0 Ordered: 13-Jul-2018 Aida Gil MD Start : 13-Jul-2018 Active Start: 07-13-2018 Disability Anna card Handicapped Placard for Lifetime disability ; Expires 5 years Quantity: 1 Refills: 0 Aida Gil MD Start : 13-Jul-2018 Active 1 ml fentaNYL 0.05 mg/ml injection (1 source) Opioid Agonist Start: 08-03-2024 End: 08-03-2024 25-100 mcg, INTRAVENOUS, DIRECTED, Starting on Viktoria 4//25 at 1200, Until Viktoria 4/10/25 at 1559, DOSING DIRECTED BY PHYSICIAN FOR PROCEDURAL SEDATION ONLY, Intraprocedure 10 ml iron sucrose 20 mg/ml injection (5 sources) Parenteral Iron Replacement Start: 03-02-2024 End: 03-02-2024 200 mg, INTRAVENOUS, ONCE, 1 dose, On Viktoria 03/02/24 at 0800, Please conduct a 30 minute post dose observation. Start: 02-28-2024 End: 02-28-2024 200 mg, INTRAVENOUS, ONCE, 1 dose, On 02/28/24 at 0930, Please conduct a 30 minute post dose observation. Start: 02-24-2024 End: 02-24-2024 200 mg, INTRAVENOUS, ONCE, 1 dose, On Viktoria 02/24/24 at 0900, Please conduct a 30 minute post dose observation. Start: 02-21-2024 End: 02-21-2024 200 mg, INTRAVENOUS, ONCE, 1 dose, On 02/21/24 at 0900, Please conduct a 30 minute post dose observation. Start: 02-17-2024 End: 02-17-2024 200 mg, INTRAVENOUS, ONCE, 1 dose, On Viktoria 02/17/24 at 1030, Please conduct a 30 minute post dose observation. Lidocaine (1 source) Antiarrhythmic, Amide Local Anesthetic Start: 12-15-2024 End: 12-15-2024 OTHER, X (OR/PROCEDURE) PRN, Starting on Wed12/15/24 at 1328, Until Wed12/15/24 at 1328, Intraprocedure 5 ml midazolam 1 mg/ml injection (1 source) Benzodiazepine Start: 08-03-2024 End: 08-03-2024 1-5 mg, INTRAVENOUS, DIRECTED, Starting on Viktoria 08/03/24 at 1200, Until Viktoria 08/03/24 at 1559, DOSING DIRECTED BY PHYSICIAN FOR PROCEDURAL SEDATION ONLY, Intraprocedure Multivitamins CAPS (1 source) Start: 08-14-2014 Multivitamins CAPS TAKE 1 CAPSULE DAILY. Quantity: 0 Refills: 0 Ordered: 14-Aug-2014 Daysi Johnson Start : 14-Aug-2014 Active Multivitamins Oral Capsule (1 source) Start: 08-14-2014 take 1 capsule by mouth once daily Multivitamins Oral Capsule TAKE 1 CAPSULE DAILY. Refills: 0 Daysi Johnson Start : 14-Aug-2014 Active PreserVision AREDS CAPS (1 source) PreserVision ARE DS CAPS Quantity: 0 Refills: 0 Ordered: 5-Aug-2019 DO Active propafenone hydrochloride 225 mg oral tablet (20 sources) Antiarrhythmic Start: 09-27-2024 End: 10-06-2024 take 1 tablet by mouth every eight hours Propafenone HCl (RYTHMOL) 225 mg tablet Take 1 tablet by mouth every 8 hours. 270 tablet 3 09/27/2024 10/06/2024 Discontinued Start: 09-24-2015 End: 02-23-2024 take 1 tablet by mouth every eight hours Propafenone HCl (RYTHMOL) 225 mg tablet Take 1 tablet by mouth every 8 hours. 270 tablet 3 09/27/2024 Active Comment on above: TAKE ONE TABLET BY M OUTH EVERY 8 HOURS TAKE 1 TABLET EVERY 8 HOURS Problems Active Problems Problem Classification Problem Date Documented Date Episodic/Chronic Abdominal hernia (20 sources) Hiatal hernia; Translations: [Diaphragmatic hernia without obstruction or gangrene] Onset: 2 06-06-2021 Episodic Allergic reactions (2 sources) Allergy to bee venom; Translations: [Allergy to insects and arachnids] Episodic Benign neoplasm of uterus (1 source) Uterine leiomyoma; Translations: [Leiomyoma of uterus, unspecified] Episodic Calculus of urinary tract (20 sources) Kidney stone; Translations: [Calculus of kidney] Onset: 2 06-06-2021 Episodic Cardiac dysrhythmias (20 sources) Paroxysmal atrial fibrillation; Translations: [Atrial fibrillation] Onset: 7 06-06-2021 Chronic Cardiac dysrhythmias (20 sources) Palpitations; Translations: [Palpitations] Onset: 2 06-08-2017 Episodic Cataract (20 sources) Cataract; Translations: [Unspecified cataract] Onset: 2 06-06-2021 Chronic Chronic kidney disease (13 sources) Chronic kidney disease stage 3 07-12-2023 Chronic Complication of device; implant or graft (20 sources) Prosthetic joint mechanical failure; Translations: [Other mechanical complication of prosthetic joint implant] Onset: 0 06-27-2019 Episodic Comment on above: Failed partial knee; Deficiency and other anemia (20 sources) Anemia; Translations: [Anemia, unspecified] Onset: 0 06-27-2019 Episodic Deficiency and other anemia (1 source) Iron deficiency anemia, unspecified; Translations: [Iron deficiency anemia, unspecified] Onset: 4 Episodic Deficiency and other anemia (1 source) Iron deficiency anemia; Translations: [Iron deficiency anemia, unspecified] 05-10-2024 Episodic Diabetes mellitus without complication (5 sources) Prediabetes 05-04-2024 Episodic Esophageal disorders (20 sources) Gastroesophageal reflux disease; Translations: [Esophageal reflux] Onset: 0 06-06-2021 Chronic Fever of unknown origin (2 sources) Fever; Translations: [Fever, unspecified] Episodic Fluid and electrolyte disorders (1 source) Hyperkalemia; Translations: [Hyperkalemia] 05-28-2023 Episodic Headache; including migraine (20 sources) Migraine without aura; Translations: [Migraine without aura, without mention of intractable migraine without mention of status migrainosus] Onset: 0 Resolved: 6 06-27-2019 Chronic Malaise and fatigue (1 source) Malaise and fatigue; Translations: [Other malaise and fatigue] Episodic Menopausal disorders (1 source) Atrophic vaginitis; Translations: [Postmenopausal atrophic vaginitis] Chronic Nutritional deficiencies (20 sources) Vitamin D deficiency; Translations: [Vitamin D deficiency, unspecified] 06-06-2021 Chronic Open wounds of head; neck; and trunk (16 sources) Laceration of forehead 05-06-2022 Episodic Osteoarthritis (20 sources) Osteoarthritis of knee; Translations: [Osteoarthrosis, localized, not specified whether primary or secondary, lower leg] Onset: 8 06-06-2021 Chronic Osteoporosis (20 sources) Osteoporosis; Translations: [Osteoporosis, unspecified] Onset: 0 06-06-2021 Chronic Other aftercare (1 source) Long-term current use of anticoagulant; Translations: [intermediate (current) use of anticoagulants] 10-06-2024 Episodic Other bone disease and musculoskeletal deformities (1 source) Osteopenia; Translations: [Other specified disorders of bone density and structure, unspecified site] Episodic Other circulatory disease (20 sources) Raynaud's disease; Translations: [Raynaud's syndrome] Onset: 0 Resolved: 5 06-27-2019 Chronic Other circulatory disease (20 sources) H/O: atrial fibrillation; Translations: [Personal history of other diseases of the circulatory system] Onset: 1 09-18-2020 Episodic Other connective tissue disease (1 source) History of total knee arthroplasty; Translations: [Presence of right artificial knee joint] 06-26-2021 Chronic Other connective tissue disease (1 source) History of revision of left total knee arthroplasty; Translations: [Presence of left artificial knee joint] Chronic Other connective tissue disease (2 sources) Pain in femur; Translations: [Disorder of bone and cartilage, unspecified] Episodic Other connective tissue disease (2 sources) Thigh pain; Translations: [Pain in limb] Episodic Other connective tissue disease (16 sources) Hand pain 05-06-2022 Episodic Other endocrine disorders (14 sources) Hyperparathyroidism 01-11-2023 Chronic Other female genital disorders (4 sources) H/O gynecological disorder; Translations: [Personal history of other genital system and obstetric disorders] Episodic Comment on above: [place] Dr. Lino; Other female genital disorders (1 source) Unspecified condition associated with female genital organs and menstrual cycle; Translations: [Unspecified condition associated with female genital organs and menstrual cycle] Onset: 4 Episodic Other gastrointestinal disorders (1 source) H/O: gastrointestinal disease; Translations: [History of esophageal reflux] Episodic Other gastrointestinal disorders (2 sources) Personal history of other diseases of the digestive system; Translations: [History of gastritis] Episodic Other injuries and conditions due to external causes (10 sources) At low risk for fall 06-06-2021 Episodic Other injuries and conditions due to external causes (16 sources) Tear of skin 05-06-2022 Episodic Other lower respiratory disease (1 source) Cough; Translations: [Cough] Episodic Other lower respiratory disease (2 sources) Dyspnea; Translations: [Dyspnea, unspecified] 10-11-2024 Episodic Other lower respiratory disease (1 source) Dyspnea, unspecified; Translations: [Dyspnea, unspecified type] Onset: 5 Episodic Other non-traumatic joint disorders (16 sources) Pain in elbow 05-06-2022 Episodic Other non-traumatic joint disorders (16 sources) Shoulder pain 05-06-2022 Episodic Other non-traumatic joint disorders (5 sources) Pain in left lower limb; Translations: [Pain in left knee] 11-07-2024 Episodic Other nutritional; endocrine; and metabolic disorders (20 sources) Hypomagnesemia; Translations: [Disorders of magnesium metabolism] Onset: 0 Resolved: 6 06-27-2019 Chronic Other nutritional; endocrine; and metabolic disorders (3 sources) Overweight 07-12-2023 Episodic Other nutritional; endocrine; and metabolic disorders (3 sources) Overweight in adulthood with body mass index of 25 or more but less than 30 07-12-2023 Episodic Other skin disorders (18 sources) Actinic keratosis 12-19-2021 Episodic Other upper respiratory infections (16 sources) Viral upper respiratory tract infection 04-10-2022 Episodic Residual codes; unclassified (20 sources) H/O Spinal surgery 06-06-2021 Episodic Residual codes; unclassified (20 sources) Immunization due 06-06-2021 Episodic Residual codes; unclassified (2 sources) At risk of disease; Translations: [Other specified personal risk factors, not elsewhere classified] Episodic Residual codes; unclassified (18 sources) FH: Aortic aneurysm 12-19-2021 Episodic Residual codes; unclassified (1 source) Menopause present; Translations: [Asymptomatic menopausal state] Episodic Residual codes; unclassified (14 sources) Screening due 01-11-2023 Episodic Residual codes; unclassified (1 source) At risk of ineffective tissue perfusion; Translations: [Other specified personal risk factors, not elsewhere classified] 09-19-2024 Episodic Retinal detachments; defects; vascular occlusion; and retinopathy (20 sources) Macular drusen ; Translations: [Drusen (degenerative)] Onset: 0 Resolved: 5 06-06-2021 Chronic Screening and history of mental health and substance abuse codes (20 sources) Ex-smoker 06-06-2021 Episodic Spondylosis; intervertebral disc disorders; other back problems (20 sources) Displacement of lumbar intervertebral disc without myelopathy; Translations: [Prolapsed lumbar intervertebral disc] Onset: 9 06-06-2021 Chronic Comment on above: Added by Problem Lis t Migration; 2013-04-02; Spondylosis; intervertebral disc disorders; other back problems (14 sources) Pain in the coccyx 11-20-2022 Episodic Thyroid disorders (20 sources) Hypothyroidism; Translations: [Unspecified acquired hypothyroidism] Onset: 3 Resolved: 6 06-06-2021 Chronic Comment on above: Dr. Romo; Unclassified (20 sources) Patient encounter status; Translations: [Lipid screening] 06-06-2021 Unclassified (20 sources) Anaphylaxis caused by insect venom 06-06-2021 Unclassified (6 sources) Influenza vaccination declined 06-06-2021 Unclassified (13 sources) Glomerular filtration rate decreased 06-30-2021 Unclassified (18 sources) Cancer cervix screening status 12-19-2021 Unclassified (18 sources) Finding of employment status 12-19-2021 Unclassified (1 source) Body mass index 20-24 - normal 01-11-2023 Unclassified (6 sources) Hypercoagulable state due to atrial fibrillation 07-12-2023 Unclassified (1 source) Left knee pain, unspecified chronicity 10-31-2024 Unclassified (1 source) Established Patient Onset: 5 Unclassified (1 source) Persistent atrial fibrillation (HCC) [I48.19] Onset: 5 Unclassified (1 source) Other persistent atrial fibrillation; Translations: [Persistent atrial fibrillation (HCC)] Onset: 5 Urinary tract infections (20 sources) Acute urinary tract infection; Translations: [Urinary tract infection, site not specified] Onset: 3 12-22-2021 Episodic Past or Other Problems Problem Classification Problem Date Documented Da te Episodic/Chronic Cancer of colon (20 sources) History of malignant neoplasm of colon; Translations: [Personal history of other malignant neoplasm of large intestine] Onset: 5 07-21-2024 Episodic Complications of surgical procedures or medical care (13 sources) Complication of anesthesia; Translations: [Other complications of anesthesia, initial encounter] Onset: 5 Resolved: 5 09-23-2024 Episodic Deficiency and other anemia (20 sources) Iron 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 dietary iron intake; Translations: [Other iron deficiency anemias] Onset: 4 02-03-2024 Episodic Deficiency and other anemia (1 source) Other iron deficiency anemias; Translations: [Iron 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 dietary iron intake] Onset: 4 Episodic Deficiency and other anemia (2 sources) Anemia, unspecified; Translations: [Anemia, unspecified type] Onset: 0 Episodic Diseases of white blood cells (13 sources) Leukocytosis; Translations: [Elevated white blood cell count, unspecified] Onset: 5 Resolved: 5 09-23-2024 Chronic Essential hypertension (20 sources) Benign essential hypertension; Translations: [Essential (primary) hypertension] Onset: 8 Resolved: 9 08-09-2018 Chronic Fracture of lower limb (20 sources) Fracture of femur; Translations: [Closed fracture of unspecified part of femur] Onset: 0 06-27-2019 Episodic Genitourinary symptoms and ill-defined conditions (20 sources) Sign or symptom of the urinary system; Translations: [Urgent desire to urinate] Onset: 2 Resolved: 6 07-08-2021 Episodic Headache; including migraine (20 sources) Headache; Translations: [Headache] Onset: 1 09-18-2020 Episodic Other aftercare (20 sources) Surgical follow-up; Translations: [Encounter for follow-up examination after completed treatment for conditions other than malignant neoplasm] Onset: 9 Resolved: 6 05-06-2022 Episodic Other aftercare (20 sources) Long-term current use of drug therapy; Translations: [Other long term care phlebotomist (current) drug therapy] Onset: 4 05-28-2023 Episodic Other aftercare (1 source) long term care phlebotomist (current) use of anticoagulants; Translations: [long term care phlebotomist current use of anticoagulant] Onset: 5 Episodic Other connective tissue disease (2 sources) H/O: osteoarthritis; Translations: [Personal history of arthritis] Resolved: 5 Episodic Other connective tissue disease (20 sources) Bursitis of elbow; Translations: [Olecranon bursitis] Onset: 0 06-27-2019 Episodic Other connective tissue disease (20 sources) Trochanteric bursitis of right hip; Translations: [Trochanteric bursitis, right hip] Onset: 6 05-20-2018 Episodic Other gastrointestinal disorders (20 sources) Chronic constipation; Translations: [Constipation, unspecified] Onset: 0 Resolved: 5 06-27-2019 Episodic Other gastrointestinal disorders (1 source) History of gastroesophageal reflux disease; Translations: [Personal history of other diseases of digestive system] Resolved: 5 Episodic Other infections; including parasitic (2 sources) H/O: infectious disease; Translations: [Personal history of other infectious and parasitic diseases] Resolved: 5 Episodic Other nervous system disorders (20 sources) Disorder of brain; Translations: [Encephalopathy, unspecified] Onset: 0 Resolved: 5 09-23-2024 Chronic Other non-traumatic joint disorders (10 sources) Pain in left knee; Translations: [Left knee pain] Onset: 9 Episodic Other non-traumatic joint disorders (20 sources) Pain in lower limb; Translations: [Pain in unspecified knee] Onset: 9 06-07-2008 Episodic Other non-traumatic joint disorders (20 sources) Joint stiffness; Translations: [Stiffness of unspecified knee, not elsewhere classified] Onset: 9 06-07-2008 Episodic Other screening for suspected conditions (not mental disorders or infectious disease) (20 sources) Patient encounter status; Translations: [Screening for lipoid disorders] Onset: 2 Episodic Residual codes; unclassified (20 sources) Other specified personal risk factors, not elsewhere classified; Translations: [Other specified personal history presenting hazards to health] Onset: 9 11-22-2018 Episodic Residual codes; unclassified (13 sources) History of atrial flutter; Translations: [Other specified postprocedural states] Onset: 1 09-23-2024 Episodic Residual codes; unclassified (13 sources) Unresponsive ; Translations: [Transient alteration of awareness] Onset: 5 Resolved: 5 09-23-2024 Episodic NEGATED: Highlighted row has not occurred!Residual codes; unclassified (5 sources) Disease Episodic Results Test Name Value Interpretation Reference Range Facility CBC W Auto Differential pane l (Bld)on 02-05-2025 Basophils (Bld) [#/Vol] 0.11 10*3/uL High <0.11 [facility] Comment on above: Order Comment: Speci men Type: BLOOD SPECIMENOrdering Facility: [facility] Address: [address] [place] [address] Performed By: #### 5 7021-8 ####[facility] [place] STEPHIETOWNCLIA [id number] [place] [address] [place] Basophils/100 WBC (Bld) 1.4 % Normal [facility] Comment on above: Order Comment: Speci men Type: BLOOD SPECIMENOrdering Facility: [facility] Address: [address] [place] [address] Performed By: #### 5 7021-8 ####[facility] [place] MILLWNCLIA [id number] [place] [address] [place] Differential cell count method Nom (Bld) Auto Normal [facility] Comment on above: Order Comment: Speci men Type: BLOOD SPECIMENOrdering Facility: [facility] Address: [address] [place] [address] Performed By: #### 5 7021-8 ####[facility] [place] MILLWNCLIA [id number] [place] [address] [place] Eosinophils (Bld) [#/Vol] 0.74 10*3/uL High <0.46 [facility] Comment on above: Order Comment: Speci men Type: BLOOD SPECIMENOrdering Facility: [facility] Address: [address] [place] [address] Performed By: #### 5 7021-8 ####[facility] [place] MILLTOWNCLIA [id number] [place] [address] [place] Eosinophils/100 WBC (Bld) 9.1 % Normal [facility] Comment on above: Order Comment: Speci men Type: BLOOD SPECIMENOrdering Facility: [facility] Address: [address] [place] [address] Performed By: #### 5 7021-8 ####[facility] [place] MILLTOWNCLIA [id number] [place] [address] [place] Erythrocyte distribution width (RBC) [Ratio] 15.1 % High 11.5-15.0 [facility] Comment on above: Order Comment: Speci men Type: BLOOD SPECIMENOrdering Facility: [facility] Address: [address] [place] [address] Performed By: #### 5 7021-8 ####[facility] HOSPITALERNESTINALuciano [id number] [place] [address] [place] [place] Hematocrit (Bld) [Volume fraction] 34.5 % Low 36.0-46.0 [facility] Comment on above: Order Comment: Speci men Type: BLOOD SPECIMENOrdering Facility: [facility] Address: [address] [place] [address] Performed By: #### 5 7021-8 ####[facility] [id number] [place] [address] [place] Hemoglobin (Bld) [Mass/Vol] 11.4 g/dL Low 11.5-15.5 [facility] Comment on above: Order Comment: Speci men Type: BLOOD SPECIMENOrdering Facility: [facility] Address: [address] [place] [address] Performed By: #### 5 7021-8 ####[facility] [id number] [place] [address] [place] Immature granulocytes (Bld) [#/Vol] 10*3/uL Normal <0.10 [facility] Comment on above: Order Comment: Speci men Type: BLOOD SPECIMENOrdering Facility: [facility] Address: [address] [place] [address] Performed By: #### 5 7021-8 ####[facility]ITALNCLIA [id number] [place] [address] [place] Immature granulocytes/100 WBC (Bld) 0.2 % Normal [facility] Comment on above: Order Comment: Speci men Type: BLOOD SPECIMENOrdering Facility: [facility] Address: [address] [place] [address] Performed By: #### 5 7021-8 ####[facility] [id number] [place] [address] [place] Lymphocytes (Bld) [#/Vol] 1.88 10*3/uL Normal 1.00-4.00 [facility] Comment on above: Order Comment: Speci men Type: BLOOD SPECIMENOrdering Facility: [facility] Address: [address] [place] [address] Performed By: #### 5 7021-8 ####[facility] [id number] [place] [address] [place] Lymphocytes/100 WBC (Bld) 23.2 % Normal [facility] Comment on above: Order Comment: Speci men Type: BLOOD SPECIMENOrdering Facility: [facility] Address: [address] [place] [address] Performed By: #### 5 7021-8 ####[facility] [id number] [place] [address] [place] MCH (RBC) [Entitic mass] 29.2 pg Normal 26.0-34.0 [facility] Comment on above: Order Comment: Speci men Type: BLOOD SPECIMENOrdering Facility: [facility] Address: [address] [place] [address] Performed By: #### 5 7021-8 ####[facility] [id number] [place] [address] [place] MCHC (RBC) [Mass/Vol] 33.0 g/dL Normal 30.5-36.0 [facility] Comment on above: Order Comment: Speci men Type: BLOOD SPECIMENOrdering Facility: [facility] Address: [address] [place] [address] Performed By: #### 5 7021-8 ####[facility] STEPHIEFREDERICKTOWNNCSCOTTYA [id number] [place] [address] [place] [facility] MCV (RBC) [Entitic vol] 88.5 fL Normal 80.0-100.0 [facility] Comment on above: Order Comment: Speci men Type: BLOOD SPECIMENOrdering Facility: [facility] Address: [address] [place] [address] Performed By: #### 5 7021-8 ####[facility]OSPITALNCLuciano [id number] [place] [address] [place] Monocytes (Bld) [#/Vol] 0.82 10*3/uL Normal <0.87 [facility] Comment on above: Order Comment: Speci men Type: BLOOD SPECIMENOrdering Facility: [facility] Address: [address] [place] [address] Performed By: #### 5 7021-8 ####[facility] HOSPITALNCA [id number] [place] [address] [place] Monocytes/100 WBC (Bld) 10.1 % Normal [facility] Comment on above: Order Comment: Speci men Type: BLOOD SPECIMENOrdering Facility: [facility] Address: [address] [place] [address] Performed By: #### 5 7021-8 ####[facility]ITALNCLIA [id number] [place] [address] [place] Neutrophils (Bld) [#/Vol] 4.54 10*3/uL Normal 1.45-7.50 [facility] Comment on above: Order Comment: Speci men Type: BLOOD SPECIMENOrdering Facility: [facility] Address: [address] [place] [address] Performed By: #### 5 7021-8 ####[facility]ITALNCLIA [id number] [place] [address] [place] Neutrophils/100 WBC (Bld) 56.0 % Normal [facility] Comment on above: Order Comment: Speci men Type: BLOOD SPECIMENOrdering Facility: [facility] Address: [address] [place] [address] Performed By: #### 5 7021-8 ####[facility] STEPHIEFREDERICKTOWNROSEY [id number] [place] [address] [place] Nucleated RBC (Bld) [#/Vol] 10*3/uL Normal <0.01 [facility] Comment on above: Order Comment: Speci men Type: BLOOD SPECIMENOrdering Facility: [facility] Address: [address] [place] [address] Performed By: #### 5 7021-8 ####[facility] [id number] [place] [address] [place] Nucleated RBC/100 WBC (Bld) [Ratio] 0.0 /100 WBC Normal [facility] Comment on above: Order Comment: Speci men Type: BLOOD SPECIMENOrdering Facility: [facility] Address: [address] [place] [address] Performed By: #### 5 7021-8 ####[facility] [id number] [place] [address] [place] Platelet mean volume (Bld) [Entitic vol] 10.5 fL Normal 9.0-12.7 [facility] Comment on above: Order Comment: Speci men Type: BLOOD SPECIMENOrdering Facility: [facility] Address: [address] [place] [address] Performed By: #### 5 7021-8 ####[facility]ITALNCLIA [id number] [place] [address] [place] Platelets (Bld) [#/Vol] 248 10*3/uL Normal 150-400 [facility] Comment on above: Order Comment: Speci men Type: BLOOD SPECIMENOrdering Facility: [facility] Address: [address] [place] [address] Performed By: #### 5 7021-8 ####[facility]ITALNCLIA [id number] [place] [address] [place] RBC (Bld) [#/Vol] 3.90 10*6/uL Normal 3.90-5.20 [facility] Comment on above: Order Comment: Speci men Type: BLOOD SPECIMENOrdering Facility: [facility] Address: [address] [place] [address] Performed By: #### 5 7021-8 ####[facility] HOSPITALNCA [id number] [place] [address] [place] WBC (Bld) [#/Vol] 8.11 10*3/uL Normal 3.70-11.00 [facility] Comment on above: Order Comment: Speci men Type: BLOOD SPECIMENOrdering Facility: [facility] Address: [address] [place] [address] Performed By: #### 5 7021-8 ####[facility]ITALNCLIA [id number] [place] [address] [place] Ferritin SerPl-mCncon 2024 Ferritin [Mass/Vol] 134.0 ng/mL Normal 14.7-205.1 [facility] Comment on above: Order Comment: Speci men Type: BLOOD SPECIMENOrdering Facility: [facility] Address: [address] [place] [address] Performed By: #### 5 0190-8, 2276-4 ####[facility] LABCLIA [id number] [place] [address] [place] Iron and Iron binding capaci ty panelon 02-05-2025 Iron [Mass/Vol] 73 ug/dL Normal 41-186 [facility] Comment on above: Order Comment: Speci men Type: BLOOD SPECIMENOrdering Facility: [facility] Address: [address] [place] [address] Performed By: #### 5 0190-8, 6-4 ####[facility] LABCLIA [id number] [place] [id number] [place] Iron binding capacity [Mass/Vol] 278 ug/dL Normal 232-386 [facility] Comment on above: Order Comment: Speci men Type: BLOOD SPECIMENOrdering Facility: [facility] Address: [address] [place] [address] Performed By: #### 5 0190-8, 2275-4 ####[facility] LABIA [id number] [place] [id number] [place] Iron/TIBC [Molar ratio] 26.3 % Normal 15.0-57.0 [facility] Comment on above: Order Comment: Speci men Type: BLOOD SPECIMENOrdering Facility: [facility] Address: [address] [place] [address] Performed By: #### 5 0190-8, 2275-4 ####[facility] LABIA [id number] [place] [address] [place] .GFRon 01-30-2025 Estimated Glomerular Filtration Rate 82 ml/min/1.73sqm Normal [facility] Comment on above: Result Comment: Stages of Chronic Kidney Disease (CKD) Stage Description eGFR(ml/min/1.73 sq.m.) CKD 1 Normal kidney function or >=90 normal kindney function with possible kidney damage (ex. Proteinuria) CKD 2 Kidney damage with mild loss 60-89 of kidney function CKD 3a Mild to moderate loss of kidney 45-59 function CKD 3b Moderate to severe loss of 30-44 of kindey function CKD 4 Severe loss of kidney function 15-29 CKD 5 Kidney failure <15 Note: (go live 2024) the eGFR calculation was updated to the 2021 CKD-EPI creatinine equation without a race factor to calculate the eGFR results. Performed By: #### B MP, TSH, FT4, GFR, FT3, VIDH #### [place] [address] #### PTH #### [address] [address] BMPon 01-30-2025 BUN/Creatinine Ratio 27 ratio Normal 7-27 [facility] Comment on above: Performed By: #### B MP, TSH, FT4, GFR, FT3, VIDH #### [place] [address] #### PTH #### [place] [address] Calcium [Mass/Vol] 9.7 mg/dL Normal 8.4-10.2 [facility] Comment on above: Performed By: #### B MP, TSH, FT4, GFR, FT3, VIDH #### [place] [address] #### PTH #### [address] [address] Chloride [Moles/Vol] 107 mmol/L Normal 98-107 [facility] Comment on above: Performed By: #### B MP, TSH, FT4, GFR, FT3, VIDH #### [place] [address] #### PTH #### [place] [address] CO2 [Moles/Vol] 32 mmol/L High 23-31 [facility] Comment on above: Performed By: #### B MP, TSH, FT4, GFR, FT3, VIDH #### [place] [address] #### PTH #### [address] [address] Creatinine [Mass/Vol] 0.79 mg/dL Normal 0.51-0.95 [facility] Comment on above: Performed By: #### B MP, TSH, FT4, GFR, FT3, VIDH #### [address] [address] #### PTH #### [address] [address] Electrolyte Balance 5.0 mEq/L Normal 4.0-15.0 [facility] Comment on above: Performed By: #### B MP, TSH, FT4, GFR, FT3, VIDH #### [place] [address] #### PTH #### [address] [address] Glucose [Mass/Vol] 94 mg/dL Normal 80-115 [facility] Comment on above: Performed By: #### B MP, TSH, FT4, GFR, FT3, VIDH #### [address] [address] #### PTH #### [address] [address] Potassium [Moles/Vol] 5.1 mmol/L Normal 3.5-5.1 [facility] Comment on above: Performed By: #### B MP, TSH, FT4, GFR, FT3, VIDH #### [address] [address] #### PTH #### [address] [address] Sodium [Moles/Vol] 144 mmol/L Normal 136-145 [facility] Comment on above: Performed By: #### B MP, TSH, FT4, GFR, FT3, VIDH #### [address] [address] #### PTH #### [address] [address] Urea nitrogen [Mass/Vol] 21 mg/dL High 7-18 [facility] Comment on above: Performed By: #### B MP, TSH, FT4, GFR, FT3, VIDH #### [place] [address] #### PTH #### [place] [address] FT3on 01-30-2025 Free T3 [Mass/Vol] 3.62 pg/mL Normal 2.30-4.00 [facility] Comment on above: Performed By: #### B MP, TSH, FT4, GFR, FT3, VIDH #### [address] [address] #### PTH #### [place] [address] FT4on 01-30-2025 Free T4 [Mass/Vol] 1.14 ng/dL Normal 0.76-1.46 [facility] Comment on above: Performed By: #### B MP, TSH, FT4, GFR, FT3, VIDH #### [address] [address] #### PTH #### [place] [address] LABORATORYOrdered By: SYSTEM SYSTEM on 01-30-2025 25-hydroxyvitamin D3 [Mass/Vol] 51.3 ng/mL Invalid Interpretation Code AO ADM SS Comment on above: Interpretive Data: I nterpretive Values Based on Total 25(OH) Vitamin D: Deficient <20 ng/mL Insufficient 20 - <30 ng/mL Sufficient 30-100 ng/mL Calcium [Mass/Vol] 9.7 mg/dL Normal 8.4 - 10. 2 mg/dL AO ADM SS Chloride [Moles/Vol] 107 mmol/L Normal 98 - 10 7 mmol/L AO ADM SS CO2 [Moles/Vol] 32 mmol/L High 23 - 31 mmol/L AO ADM SS Creatinine [Mass/Vol] 0.79 mg/dL Normal 0.51 - 0.95 mg/dL AO ADM SS Electrolyte Balance 5.0 mEq/L Normal 4.0 - 15 .0 mEq/L AO ADM SS Free T3 [Mass/Vol] 3.62 pg/mL Normal 2.30 - 4.00 pg/mL AO ADM SS Free T4 [Mass/Vol] 1.14 ng/dL Normal 0.76 - 1.46 ng/dL AO ADM SS GLOMERULAR FILTRATION RATE/1.73 SQ M.PREDICTED:ARVRAT:PT: SER/PLAS/BLD:QN:CREATI NINE-BASED FORMULA (CKD-EPI 2020) 82 ml/min/1.73sqm Invalid Interpretation Code AO Chemistry S Comment on above: Interpretive Data: Stages of Chronic Kidney Disease (CKD) Stage Description eGFR(ml/min/1.73 sq.m.) CKD 1 Normal kidney function or >=90 normal kindney function with possible kidney damage (ex. Proteinuria) CKD 2 Kidney damage with mild loss 60-89 of kidney function CKD 3a Mild to moderate loss of kidney 45-59 function CKD 3b Moderate to severe loss of 30-44 of kindey function CKD 4 Severe loss of kidney function 15-29 CKD 5 Kidney failure <15 Note: (go live 2024) the eGFR calculation was updated to the 2020 CKD-EPI creatinine equation without a race factor to calculate the eGFR results. Glucose [Mass/Vol] 94 mg/dL Normal 80 - 115 mg/dL AO ADM SS Parathyrin.intact [Mass/Vol] 89.6 pg/mL High 18.5 - 88.0 pg/mL AH ADM SS Potassium [Moles/Vol] 5.1 mmol/L Normal 3.5 - 5.1 mmol/L AO ADM SS Sodium [Moles/Vol] 144 mmol/L Normal 136 - 145 mmol/L AO ADM SS TSH Qn 0.09 m[IU]/L Low 0.36 - 3.74 mcIU/mL AO ADM SS Urea nitrogen [Mass/Vol] 21 mg/dL High 7 - 18 mg/dL AO ADM SS Urea nitrogen/Creatinine [Mass ratio] 27 ratio Normal 7 - 27 ratio AO ADM SS PTHon 01-30-2025 PTH, Intact 89.6 pg/mL High 18.5-88.0 [facility] Comment on above: Performed By: #### B MP, TSH, FT4, GFR, FT3, VIDH #### [facility] [address] [place], [place] [address] #### PTH #### [facility] [address] [place] [address] TSHon 01-30-2025 TSH Qn 0.09 m[IU]/L Low 0.36-3.74 [facility] Comment on above: Performed By: #### B MP, TSH, FT4, GFR, FT3, VIDH #### [place] [id number] [place], [place] [address] #### PTH #### [address] [address] VIDHon 01-30-2025 Vit. D 25-Hydroxy 51.3 ng/mL Normal [facility] Comment on above: Result Comment: Inte rpretive Values Based on Total 25(OH) Vitamin D: Deficient <20 ng/mL Insufficient 20 - <30 ng/mL Sufficient 30-100 ng/mL Performed By: #### B MP, TSH, FT4, GFR, FT3, VIDH #### [address] [address] #### PTH #### [address] [address] ECHOon 01-23-2025 Echocardiography Echocardiography Rep ort: Transthoracic Echo [facility] Date of service: 01/23/2025 12:51:12 PM [facility] Ordering physician: CHI ZAMORA Exam indication: S/P PVAI Ablation Technologist: Alexi Walls Interpreting physician: Alejandro Rodriguez MD PATIENT: Name: BELLA MORILLO : 1955 Age: 69 years Gender: F History of arrhythmia. Previous cardiovascular interventions: Afib ablation (09/22/2024) : PVAI ablation Primary rhythm: sinus. Height: 168.90 cm BSA: 1.79 m Weight: 68.50 kg BMI: 24.0 kg/m Heart rate 67 bpm Blood pressure 116/78 mmHg Color Doppler was utilized to interrogate the cardiac valves assessed and spectral Doppler was utilized to determine the flow velocities and pressure gradients reported in this exam. MEASUREMENTS: Value Indexed Normal Max aortic dimension 3.0 cm Ao < 3.8 Left atrial volume 55 ml (Swanson's) 31 ml/m Antolin <= 34 LV ID (diastole) 3.8 cm (2D) 2.15 cm/m LV ID (systole) 2.5 cm (2D) 1.41 cm/m IVS, leaflet tips 1.4 cm (2D) Posterior wall thickness 1.2 cm (2D) Left ventricular mass 170 g (2D) 95 g/m LV stroke volume 64 ml (2D biplane) LV end diastolic volume 101 ml (2D biplane) 56.4 ml/m 29<=EDVi<62 LV end systolic volume 37 ml (2D biplane) 20.6 ml/m Ejection Fraction 63 % (2D biplane) EF > 54 FINDINGS: LEFT VENTRICLE The left ventricle is normal in size. There is mild upper septal left ventricular hypertrophy. Left ventricular systolic function is normal. Normal left ventricular diastolic function. Mitral annular lateral E/e': 10.3. Mitral annular septal E/e': 9.9. Wall Motion: All scored segments are normal. RIGHT VENTRICLE The right ventricle is normal in size. Right ventricular systolic function is normal. RV systolic tissue Doppler velocity is 14.0 cm/s. Tricuspid annular displacement is 2.6 cm. Estimated right ventricular systolic pressure is likely underestimated due to a weak or incomplete tricuspid regurgitation signal and is, at least, 35 mmHg consistent with normal pulmonary artery pressures. Estimated right atrial pressure is 3 mmHg based on IVC assessment. LEFT ATRIUM The left atrial cavity is normal in size. RIGHT ATRIUM The right atrial cavity is normal in size. Inferior Vena Cava: The inferior vena cava appears normal measuring 1.7 cm. The vessel decreases greater than 50 percent with inspiration. MITRAL VALVE The mitral valve leaflets are structurally normal. There is trace mitral valve regurgitation. The pressure half time is 37 msec. The peak mitral E/A ratio is 3.01. The average mitral E/e' ratio is 10.1. The mitral flow deceleration time is 127 msec. TRICUSPID VALVE The tricuspid valve leaflets are structurally normal. There is trace tricuspid valve regurgitation. AORTIC VALVE There is no aortic valve stenosis. There is no aortic valve regurgitation. Tricuspid aortic valve. The peak gradient is 6 mmHg (peak velocity = 121.0 cm/s). PULMONIC VALVE There is trace (trace - 1+) pulmonic valve regurgitation. There is no thickening. AORTA The visualized aorta is normal in size. Measurements - Sinus: 2.9 cm. Mid ascending aorta 3.0 cm. PULMONARY ARTERIES The pulmonary arteries are unseen or not interrogated. INTERATRIAL SEPTUM There is no evidence of intracardiac shunting as detected by Doppler. INTERVENTRICULAR SEPTUM There is no flow through the interventricular septum as detected by Doppler. PERICARDIUM There is no pericardial effusion. CONCLUSIONS: - Exam indication: S/P PVAI Ablation - The left ventricle is normal in size. There is mild upper septal left ventricular hypertrophy. Left ventricular systolic function is normal. EF = 63 5% (2D biplane) Normal left ventricular diastolic function. - The right ventricle is normal in size. Right ventricular systolic function is normal. - Estimated right ventricular systolic pressure is likely underestimated due to a weak or incomplete tricuspid regurgitation signal and is, at least, 35 mmHg consistent with normal pulmonary artery pressures. Estimated right atrial pressure is 3 mmHg based on IVC assessment. - There are no significant valvular abnormalities. - Exam was compared with the prior CC echocardiographic exam performed on 06/14/2023. There is no significant change. * * * Final * * * [employer] : [id number] Normal [facility] .Auto Diffon 01-16-2025 Basophil, Absolute 0.1 10 3/mcL Normal 0.0-0.3 [facility] Comment on above: Performed By: #### T [facility] #### [address] [address] Basophils/100 WBC (Bld) 1.8 % Normal 0.0-2.5 [facility] Comment on above: Performed By: #### T [facility] #### [address] [address] Eosinophil, Absolute 0.3 10 3/mcL Normal 0.0-0.7 [facility] Comment on above: Performed By: #### T DB #### [address] [address] Eosinophils/100 WBC (Bld) 5.9 % Normal 0.0-6.0 [facility] Comment on above: Performed By: #### T DB #### [address] [address] Lymphocyte, Absolute 1.1 10 3/mcL Normal 0.9-4.3 [facility] Comment on above: Performed By: #### T YOCASTA #### [address] [address] Lymphocytes/100 WBC (Bld) 20.7 % Normal 20.0-40.0 [facility] Comment on above: Performed By: #### T YOCASTA #### [address] [address] Monocyte, Absolute 0.6 10 3/mcL Normal 0.1-1.4 [facility] Comment on above: Performed By: #### T YOCASTA #### [address] [address] Monocytes/100 WBC (Bld) 12.6 % Normal 2.0-13.0 [facility] Comment on above: Performed By: #### T YOCASTA #### [address] [address] Neutrophils/100 WBC (Bld) 59.0 % Normal 50.0-75.0 [facility] Comment on above: Performed By: #### T YOCASTA #### [address] [address] .GFRon 01-16-2025 Estimated Glomerular Filtration Rate 82 ml/min/1.73sqm Normal [facility] Comment on above: Result Comment: Stages of Chronic Kidney Disease (CKD) Stage Description eGFR(ml/min/1.73 sq.m.) CKD 1 Normal kidney function or >=90 normal kindney function with possible kidney damage (ex. Proteinuria) CKD 2 Kidney damage with mild loss 60-89 of kidney function CKD 3a Mild to moderate loss of kidney 45-59 function CKD 3b Moderate to severe loss of 30-44 of kindey function CKD 4 Severe loss of kidney function 15-29 CKD 5 Kidney failure <15 Note: (go live 2024) the eGFR calculation was updated to the 2020 CKD-EPI creatinine equation without a race factor to calculate the eGFR results. Performed By: #### T ROPEMMIE #### [address] [address] .NEUABSon 01-16-2025 Neutrophil, Absolute 3.0 10 3/mcL Normal 2.3-8.1 [facility] Comment on above: Performed By: #### T ROP #### [address] [address] A1Con 01-16-2025 Glucose [Mass/Vol] 120 mg/dL Normal [facility] Comment on above: Result Comment: Avlarie mated Average Glucose calculated by equation ((28.7xA1C)-46.7) Estimated average glucose (eAG) is a calculated value from Hemoglobin A1C and is chemical sales representative of the average blood glucose level in the last 2-3 month period. Normal range: less than 114 mg/dL Performed By: #### B MP, TSH, FT4, GFR, FT3, VIDH #### [address] [address] #### PTH #### [place] [address] HbA1c (Bld) [Mass fraction] 5.8 % Normal 4.3-6.4 [facility] Comment on above: Performed By: #### B MP, TSH, FT4, GFR, FT3, VIDH #### [place] [address] #### PTH #### [place] [address] CBCon 01-16-2025 Erythrocyte distribution width (RBC) [Ratio] 15.0 % Normal 11.5-15.5 [facility] Comment on above: Performed By: #### C BC, ADIFF, ANEU, FERR, MG, TSH, FT4, RFP, HFP, GFR, LIPID, VIDH, A1C #### [place] [address] #### PTH #### [place] [address] Hematocrit (Bld) [Volume fraction] 35.7 % Normal 34.0-46.0 [facility] Comment on above: Performed By: #### C BC, ADIFF, ANEU, FERR, MG, TSH, FT4, RFP, HFP, GFR, LIPID, VIDH, A1C #### [place] [address] #### PTH #### [place] [address] Hgb 11.9 G/dL Low 12.0-16.0 [facility] Comment on above: Performed By: #### C BC, ADIFF, ANEU, FERR, MG, TSH, FT4, RFP, HFP, GFR, LIPID, VIDH, A1C #### [place] [address] #### PTH #### [place] [address] MCH (RBC) [Entitic mass] 29.5 pg Normal 27.0-33.0 [facility] Comment on above: Performed By: #### C BC, ADIFF, ANEU, FERR, MG, TSH, FT4, RFP, HFP, GFR, LIPID, VIDH, A1C #### [place] [address] #### PTH #### [place] [address] MCHC 33.5 G/dL Normal 32.0-36.0 [facility] Comment on above: Performed By: #### C BC, ADIFF, ANEU, FERR, MG, TSH, FT4, RFP, HFP, GFR, LIPID, VIDH, A1C #### [place] [address] #### PTH #### [place] [address] MCV (RBC) [Entitic vol] 88.1 fL Normal 80.0-99.0 [facility] Comment on above: Performed By: #### C BC, ADIFF, ANEU, FERR, MG, TSH, FT4, RFP, HFP, GFR, LIPID, VIDH, A1C #### [place] [address] #### PTH #### [place] [address] Platelet 220 10 3/mcL Normal 150-450 [facility] Comment on above: Performed By: #### C BC, ADIFF, ANEU, FERR, MG, TSH, FT4, RFP, HFP, GFR, LIPID, VIDH, A1C #### [place] [address] #### PTH #### [place] [address] Platelet mean volume (Bld) [Entitic vol] 9.4 fL Normal 6.6-10.5 [facility] Comment on above: Performed By: #### C BC, ADIFF, ANEU, FERR, MG, TSH, FT4, RFP, HFP, GFR, LIPID, VIDH, A1C #### [place] [address] #### PTH #### [place] [address] RBC 4.05 10 6/mcL Low 4.10-5.30 [facility] Comment on above: Performed By: #### C BC, ADIFF, ANEU, FERR, MG, TSH, FT4, RFP, HFP, GFR, LIPID, VIDH, A1C #### [place] [address] #### PTH #### [place] [address] WBC 5.1 10 3/mcL Normal 4.5-10.8 [facility] Comment on above: Performed By: #### C BC, ADIFF, ANEU, FERR, MG, TSH, FT4, RFP, HFP, GFR, LIPID, VIDH, A1C #### [place] [address] #### PTH #### [place] [address] Alvin 01-16-2025 Ferritin [Mass/Vol] 121.0 ng/mL Normal 8.0-252.0 [facility] Comment on above: Performed By: #### T ROPHS #### [place] [address] FT4on 01-16-2025 Free T4 [Mass/Vol] 1.16 ng/dL Normal 0.76-1.46 [facility] Comment on above: Performed By: #### T YOCASTA #### [address] [address] [facility] Bili Indirect 0.5 mg/dL Normal [facility] Comment on above: Performed By: #### T YOCASTA #### [place] [id number] Albumin/Globulin [Mass ratio] 1.1 {ratio} Normal 1.1-2.5 [facility] Comment on above: Performed By: #### T YOCASTA #### [place] [address] ALP [Catalytic activity/Vol] 56 U/L Normal 40-135 [facility] Comment on above: Performed By: #### T YOCASTA #### [place] [address] ALT [Catalytic activity/Vol] 17 U/L Normal 14-59 [facility] Comment on above: Performed By: #### T YOCASTA #### [place] [address] AST [Catalytic activity/Vol] 21 U/L Normal 10-40 [facility] Comment on above: Performed By: #### T YOCASTA #### [place] [address] Bili Direct 0.2 mg/dL Normal 0.0-0.2 [facility] Comment on above: Result Comment: Use of this assay is not recommended for patients undergoing treatment with eltrombopag due to the potential for falsely elevated results. Performed By: #### T YOCASTA #### [place] [address] Bili Total 0.7 mg/dL Normal 0.2-1.0 [facility] Comment on above: Result Comment: Use of this assay is not recommended for patients undergoing treatment with eltrombopag due to the potential for falsely elevated results. Performed By: #### T YOCASTA #### [address] [address] Globulin 3.6 G/dL Normal 2.7-4.4 [facility] Comment on above: Performed By: #### T YOCASTA #### [place] [id number] [place], [place] [address] Total Protein 7.5 G/dL Normal 6.4-8.2 [facility] Comment on above: Performed By: #### T YOCASTA #### [address] [address] LABORATORYOrdered By: SYSTEM SYSTEM on 01-16-2025 25-hydroxyvitamin D3 [Mass/Vol] 52.8 ng/mL Invalid Interpretation Code AO ADM SS Comment on above: Interpretive Data: I nterpretive Values Based on Total 25(OH) Vitamin D: Deficient <20 ng/mL Insufficient 20 - <30 ng/mL Sufficient 30-100 ng/mL Albumin/Globulin [Mass ratio] 1.1 {ratio} Normal 1.1 - 2.5 ratio AO ADM SS ALP [Catalytic activity/Vol] 56 U/L Normal 40 - 135 U/L AO ADM SS ALT With P-5'-P [Catalytic activity/Vol] 17 U/L Normal 14 - 59 U/L AO ADM SS AST With P-5'-P [Catalytic activity/Vol] 21 U/L Normal 10 - 40 U/L AO ADM SS Basophils (Bld) [#/Vol] 0.1 103/mcL Normal 0.0 - 0.3 10^3/mcL AO Workflow SS Basophils/100 WBC (Bld) 1.8 % Normal 0.0 - 2.5 % AO Workflow SS Bilirubin [Mass/Vol] 0.7 mg/dL Normal 0.2 - 1 .0 mg/dL AO ADM SS Comment on above: Interpretive Data: U se of this assay is not recommended for patients undergoing treatment with eltrombopag due to the potential for falsely elevated results. Bilirubin.direct [Mass/Vol] 0.5 mg/dL Invalid Interpretation Code AO Chemistry S Bilirubin.direct [Mass/Vol] 0.2 mg/dL Normal 0.0 - 0.2 mg/dL AO ADM SS Comment on above: Interpretive Data: U se of this assay is not recommended for patients undergoing treatment with eltrombopag due to the potential for falsely elevated results. Calcium [Mass/Vol] 9.5 mg/dL Normal 8.4 - 10. 2 mg/dL AO ADM SS Chloride [Moles/Vol] 105 mmol/L Normal 98 - 10 7 mmol/L AO ADM SS CO2 [Moles/Vol] 32 mmol/L High 23 - 31 mmol/L AO ADM SS Creatinine [Mass/Vol] 0.79 mg/dL Normal 0.51 - 0.95 mg/dL AO ADM SS Electrolyte Balance 6.0 mEq/L Normal 4.0 - 15 .0 mEq/L AO ADM SS Eosinophil, Absolute 0.3 103/mcL Normal 0.0 - 0 .7 10^3/mcL AO Workflow SS Eosinophils/100 WBC (Bld) 5.9 % Normal 0.0 - 6.0 % AO Workflow SS Erythrocyte distribution width (RBC) [Ratio] 15.0 % Normal 11.5 - 15.5 % AO Workflow SS Estimated Glomerular Filtration Rate 82 ml/min/1.73sqm Invalid Interpretation Code AO Chemistry S Comment on above: Interpretive Data: Stages of Chronic Kidney Disease (CKD) Stage Description eGFR(ml/min/1.73 sq.m.) CKD 1 Normal kidney function or >=90 normal kindney function with possible kidney damage (ex. Proteinuria) CKD 2 Kidney damage with mild loss 60-89 of kidney function CKD 3a Mild to moderate loss of kidney 45-59 function CKD 3b Moderate to severe loss of 30-44 of kindey function CKD 4 Severe loss of kidney function 15-29 CKD 5 Kidney failure <15 Note: (go live 2024) the eGFR calculation was updated to the 2020 CKD-EPI creatinine equation without a race factor to calculate the eGFR results. Ferritin [Mass/Vol] 121.0 ng/mL Normal 8.0 - 252.0 ng/mL AO ADM SS Free T4 [Mass/Vol] 1.16 ng/dL Normal 0.76 - 1.46 ng/dL AO ADM SS Globulin 3.6 G/dL Normal 2.7 - 4.4 G/dL AO ADM SS Glucose [Mass/Vol] 120 mg/dL Invalid Interpretation Code AO Chemistry S Comment on above: Interpretive Data: E stimated average glucose (eAG) is a calculated value from Hemoglobin A1C and is chemical sales representative of the average blood glucose level in the last 2-3 month period. Normal range: less than 114 mg/dL Glucose [Mass/Vol] 84 mg/dL Normal 80 - 115 mg/dL AO ADM SS HbA1c (Bld) [Mass fraction] 5.8 % Normal 4.3 - 6.4 % AO ADM SS Hematocrit (Bld) [Volume fraction] 35.7 % Normal 34.0 - 46.0 % AO Workflow SS Hemoglobin (Bld) [Mass/Vol] 11.9 G/dL Low 12.0 - 16.0 G/dL AO Workflow SS Lymphocytes (Bld) [#/Vol] 1.1 103/mcL Normal 0.9 - 4.3 10^3/mcL AO Workflow SS Lymphocytes/100 WBC (Bld) 20.7 % Normal 20.0 - 40.0 % AO Workflow SS Magnesium [Mass/Vol] 1.9 mg/dL Normal 1.8 - 2 .4 mg/dL AO ADM SS MCH (RBC) [Entitic mass] 29.5 pg Normal 27.0 - 33.0 pg AO Workflow SS MCHC 33.5 G/dL Normal 32.0 - 36.0 G/dL AO Workflow SS MCV (RBC) [Entitic vol] 88.1 fL Normal 80.0 - 99.0 fL AO Workflow SS Monocytes (Bld) [#/Vol] 0.6 103/mcL Normal 0.1 - 1.4 10^3/mcL AO Workflow SS Monocytes/100 WBC (Bld) 12.6 % Normal 2.0 - 13.0 % AO Workflow SS Neutrophils (Bld) [#/Vol] 3.0 103/mcL Normal 2.3 - 8.1 10^3/mcL AO Workflow SS Neutrophils/100 WBC (Bld) 59.0 % Normal 50.0 - 75.0 % AO Workflow SS Parathyrin.intact [Mass/Vol] 78.8 pg/mL Normal 18.5 - 88.0 pg/mL AH ADM SS Phosphate [Mass/Vol] 3.8 mg/dL Normal 2.3 - 4 .1 mg/dL AO ADM SS Platelet mean volume (Bld) [Entitic vol] 9.4 fL Normal 6.6 - 10.5 fL AO Workflow SS Platelets (Bld) [#/Vol] 220 103/mcL Normal 150 - 450 10^3/mcL AO Workflow SS Potassium [Moles/Vol] 4.6 mmol/L Normal 3.5 - 5.1 mmol/L AO ADM SS Protein [Mass/Vol] 7.5 G/dL Normal 6.4 - 8.2 G/dL AO ADM SS RBC (Bld) [#/Vol] 4.05 106/mcL Low 4.10 - 5.30 10^6/mcL AO Workflow SS Sodium [Moles/Vol] 143 mmol/L Normal 136 - 145 mmol/L AO ADM SS TSH Qn 0.04 m[IU]/L Low 0.36 - 3.74 mcIU/mL AO ADM SS Urea nitrogen [Mass/Vol] 13 mg/dL Normal 7 - 18 mg/dL AO ADM SS Urea nitrogen/Creatinine [Mass ratio] 16 ratio Normal 7 - 27 ratio AO ADM SS WBC (Bld) [#/Vol] 5.1 103/mcL Normal 4.5 - 10.8 10^3/mcL AO Workflow SS LABORATORYOrdered By: Jessie Kinsey on 01-16-2025 Cholesterol [Mass/Vol] 205 mg/dL High 0 - 2 00 mg/dL AO ADM SS Comment on above: Interpretive Data: C holesterol Reference Interval: Less than 200 Desirable 200-239 Borderline high risk 240 and above High risk Cholesterol in HDL [Mass/Vol] 76 mg/dL High 40 - 60 mg/dL AO ADM SS Cholesterol in LDL [Mass/Vol] 121 mg/dL Normal 0 - 130 mg/dL AO ADM SS Triglyceride [Mass/Vol] 42 mg/dL Normal 0 - 150 mg/dL AO ADM SS Comment on above: Interpretive Data: T riglyceride Reference Interval: Less than 150 Normal 150-199 Borderline high risk 200-499 High risk 500 or higher Very high risk LIPIDon 01-16-2025 Cholesterol [Mass/Vol] 205 mg/dL High 0-200 [facility] Comment on above: Result Comment: Chol esterol Reference Interval: Less than 200 Desirable 200-239 Borderline high risk 240 and above High risk Performed By: #### T YOCASTA #### [place] [address] [place], [place] [address] Cholesterol in HDL [Mass/Vol] 76 mg/dL High 40-60 [facility] Comment on above: Performed By: #### T YOCASTA #### [address] [address] Cholesterol in LDL [Mass/Vol] 121 mg/dL Normal 0-130 [facility] Comment on above: Performed By: #### T YOCASTA #### [address] [address] Triglyceride [Mass/Vol] 42 mg/dL Normal 0-150 [facility] Comment on above: Result Comment: Trig lyceride Reference Interval: Less than 150 Normal 150-199 Borderline high risk 200-499 High risk 500 or higher Very high risk Performed By: #### T YOCASTA #### [address] [address] Laboratory - Chemistry and C hemistry - challengeOrdered By: SYSTEM SYSTEM on 01-16-2025 Albumin BCP dye [Mass/Vol] 3.9 G/dL Normal 3.4 - 4.8 G/dL AO ADM SS MGon 01-16-2025 Magnesium [Mass/Vol] 1.9 mg/dL Normal 1.8-2.4 [facility] Comment on above: Performed By: #### T YOCASTA #### [address] [address] PTHon 01-16-2025 PTH, Intact 78.8 pg/mL Normal 18.5-88.0 [facility] Comment on above: Performed By: #### B MP, TSH, FT4, GFR, FT3, VIDH #### [address] [address] #### PTH #### [facility] [address] [place] [address] RFPon 01-16-2025 Albumin Level 3.9 G/dL Normal 3.4-4.8 [facility] Comment on above: Performed By: #### T YOCASTA #### [address] [address] BUN/Creatinine Ratio 16 ratio Normal 7-27 [facility] Comment on above: Performed By: #### T YOCASTA #### [address] [address] Calcium [Mass/Vol] 9.5 mg/dL Normal 8.4-10.2 [facility] Comment on above: Performed By: #### T YOCASTA #### [address] [address] Chloride [Moles/Vol] 105 mmol/L Normal 98-107 [facility] Comment on above: Performed By: #### T YOCASTA #### [address] [address] CO2 [Moles/Vol] 32 mmol/L High 23-31 [facility] Comment on above: Performed By: #### T YOCASTA #### [address] [address] Creatinine [Mass/Vol] 0.79 mg/dL Normal 0.51-0.95 [facility] Comment on above: Performed By: #### T YOCASTA #### [address] [address] Electrolyte Balance 6.0 mEq/L Normal 4.0-15.0 [facility] Comment on above: Performed By: #### T YOCASTA #### [address] [address] Glucose [Mass/Vol] 84 mg/dL Normal 80-115 [facility] Comment on above: Performed By: #### T YOCASTA #### [address] [address] Phosphate [Mass/Vol] 3.8 mg/dL Normal 2.3-4.1 [facility] Comment on above: Performed By: #### T YOCASTA #### [address] [address] Potassium [Moles/Vol] 4.6 mmol/L Normal 3.5-5.1 [facility] Comment on above: Performed By: #### T YOCASTA #### [address] [address] Sodium [Moles/Vol] 143 mmol/L Normal 136-145 [facility] Comment on above: Performed By: #### T DB #### [place] [address] [place], [place] [address] Urea nitrogen [Mass/Vol] 13 mg/dL Normal 7-18 [facility] Comment on above: Performed By: #### T DB #### [place] [address] [place], [place] [address] TSHon 01-16-2025 TSH Qn 0.04 m[IU]/L Low 0.36-3.74 [facility] Comment on above: Performed By: #### T DB #### [address] [address] VIDHon 01-16-2025 Vit. D 25-Hydroxy 52.8 ng/mL Normal [facility] Comment on above: Result Comment: Inte rpretive Values Based on Total 25(OH) Vitamin D: Deficient <20 ng/mL Insufficient 20 - <30 ng/mL Sufficient 30-100 ng/mL Performed By: #### B MP, TSH, FT4, GFR, FT3, VIDH #### [address] [address] #### PTH #### [place] [address] CNOVon 12-19-2024 CNOV Office Visit (DINORAH ) BELLA MORILLO ([id number]) 1955 F Date Time Provider Department 12/19/24 3:00 PM JACIEL HURD During your visit today, we recorded the following information about you: Weight Height 68.5 kg 1.689 m Jaciel Hurd MD 12/19/2024 8:20 PM Signed Orthopaedic Office Note: December 19, 2024 8:15 PM Bella Morillo 69 year old History: Bella Morillo is a 69 year old with previous TKA, revision TKA, extensor mechanism rupture t/w marlex mesh, now failed. Infection has been ruled out She has a nickel allergy We have discussed surgical options at last appts. Here to discuss details and scheduling Subjective: See above Updated ROS: No changes Updated Exam: LLE Lower Extremity Mod effusion, seroma No increased warmth or erythema Stable ligamentous exam 40 degree extensor lag, motion intact otherwise Updated Imaging: Unchanged revision knee Assessment and Plan: Again we discussed all options. Non-op, full revision with repeat mesh and patellectomy, repeat mesh and patellectomy, and above knee amputation. We discussed the morbidity of removal of implants, as well as the limited options with her nickel allergy. With full discussion of risks, benefits, expected outcomes, recovery, she would like to proceed with mesh reconstruction and casting. Will use mesh, patellectomy, 3 months in cast, then hinged brace for 4 weeks with gradual motion. I spent a total of approximately 35 minutes on the date of the service which included preparing to see the patient, [id number] patient care, completing clinical documentation, obtaining and/or reviewing separately obtained history, performing a medically appropriate examination, counseling and educating the patient/family/caregiver, ordering medications, tests, or procedures, communicating with other HCPs (not separately reported), independently interpreting results (not separately reported), communicating results to the patient/family/caregiver, and care coordination (not separately reported). Jaciel Hurd MD Orthopaedic Surgery Allergies As of Date: 12/19/2024 Noted Allergy Reaction BEES 04/03/2004 10 - Anaphylaxis CODEINE 06/21/2006 5 - Intolerance Comments: migraines ADHESIVE TAPE (ROSINS) 08/17/2005 2 - Rash 9 - Itching ADHESIVE TAPE-SILICONES 16 - Unknown BEE STING 09/24/2015 10 - Anaphylaxis BEE VENOM PROTEIN (HONEY BEE) 10 - Anaphylaxis CORTISONE 08/10/2019 14 - Other: See Comments Comments: Turns red DAKIN'S (SODIUM HYPOCHLORITE SOLU*12/08/2019 16 - Unknown NICKEL 11/24/2019 16 - Unknown VANADIUM 11/24/2019 16 - Unknown Date Reviewed: 12/19/2024 Reviewed by: Gayle Quiles LPN - Fully Assessed Reason for Visit: Established Patient [175] Knee Replacement [363] Knee Pain [132] Primary Visit Diagnosis:Failure of total knee replacement, subsequent encounter [T84.018D, Z96.058] Prescriptions as of 12/19/2024 - apixaban (ELIQUIS) 5 mg tab(s) Take 1 tablet by mouth two times a day. - metoprolol tartrate, short acting, (LOPRESSOR) 25 mg tablet TAKE 1 TABLET BY MOUTH TWICE A DAY - liothyronine (CYTOMEL) 5 mcg tablet Take 1 tablet by mouth twice daily. - cholecalciferol, Vitamin D3, (VITAMIN D3) 1,250 mcg (50,000 unit) cap capsule Take 50,000 Units by mouth once every month. - levothyroxine (SYNTHROID) 112 mcg tablet Take 1 tablet by mouth once daily. 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] 09/25/2016 Displacement of lumbar intervertebral disc with*05/20/2018 Primary osteoarthritis of right knee [M17.11] 09/15/2017 Trochanteric bursitis of right hip [M70.61] 05/07/2015 Hypertension [I10] 10/12/2017 08/09/2018 At risk for stroke [Z91.89] 11/22/2018 Anemia [D64.9] 06/27/2019 Bursitis of elbow [M70.30] 06/27/2019 Chronic constipation [K59.09] 06/27/2019 Fracture of femur (HCC) [S72.90XA] 06/27/2019 Gastroesophageal reflux disease [K21.9] 06/27/2019 Hypomagnesemia [E83.42] 06/27/2019 Macular drusen [H35.369] 06/27/2019 Encephalopathy [G93.40] 06/27/2019 09/23/2024 Osteoporosis [M81.0] 06/27/2019 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 Normal [facility] Bacteria Fld Culton 12-16-19 25 Bacteria identified Cx Nom (Body fld) CULTURE, BODY FLD: No growth GRAM STAIN: No organisms seen Rare Polymorphonuclear leukocytes Gram stain from primary specimen Normal [facility] Comment on above: Performed By: #### 6 11-4 ####[facility] LABCLIA [id number] [address] [place] Guidance for injection of Kn eeon 12-15-2024 IMPRESSION: Left kne e fluid aspiration as detailed Business Account Specialist: PSCB Transcribe Date/Time: Dec 15 2024 3:35P Dictated by : CEDRIC KRAUSE MD This examination was interpreted and the report reviewed and electronically signed by: CEDRIC KRAUSE MD on Dec 15 2024 3:36PM [facility] * * *Final Report* * * DATE OF EXAM: Dec 15 2024 1:46PM MDX 2305 - XR KNEE ASPIRATION LT / PROCEDURE REASON: M25.562-Arthralgia of left lower leg * * * * Physician Interpretation * * * * HISTORY: Arthralgia of left lower leg LEFT KNEE PAIN, HISTORY OF MULTIPLE SURGERIES OF LEFT KNEE Do not lavage with saline. NOTE:->Please use procedural lab order set to place t he specimen order. TECHNIQUE: Pre-procedure Sign-in: Safety Checklist Performed: Yes. The team confirmed the correct patient, correct site, site marking, correct procedure, and correct position. Timeout Time: 1300 Sign-out: Communication performed: Yes. 2 mL 1% lidocaine was infused for local anesthesia. Fluoroscopic Radiation Summary: Plane A, Air Kerma: 0.4 mGy Dose Area Product (DAP): Fluoro time: 0:06 min:sec COMPARISON: 11/07/2024 radiographs RESULT: 20-gauge spinal needle was placed into the intercondylar notch area of the left knee prosthesis under guidance of fluoroscopy. 23 mL of clear orange-colored fluid was aspirated. [facility] Provider, Gayle Hernandez - 12/15/2024 * * *Final Report* * * DATE OF EXAM: Dec 15 2024 1:46PM MDX 2305 - XR KNEE ASPIRATION LT / PROCEDURE REASON: M25.562-Arthralgia of left lower leg * * * * Physician Interpretation * * * * HISTORY: Arthralgia of left lower leg LEFT KNEE PAIN, HISTORY OF MULTIPLE SURGERIES OF LEFT KNEE Do not lavage with saline. NOTE:->Please use procedural lab order set to place t he specimen order. TECHNIQUE: Pre-procedure Sign-in: Safety Checklist Performed: Yes. The team confirmed the correct patient, correct site, site marking, correct procedure, and correct position. Timeout Time: 1300 Sign-out: Communication performed: Yes. 2 mL 1% lidocaine was infused for local anesthesia. Fluoroscopic Radiation Summary: Plane A, Air Kerma: 0.4 mGy Dose Area Product (DAP): Fluoro time: 0:06 min:sec COMPARISON: 11/07/2024 radiographs RESULT: 20-gauge spinal needle was placed into the intercondylar notch area of the left knee prosthesis under guidance of fluoroscopy. 23 mL of clear orange-colored fluid was aspirated. IMPRESSION IMPRESSION: Left knee fluid aspiration as detailed Business Account Specialist: PSCB Transcribe Date/Time: Dec 15 2024 3:35P Dictated by : CEDRIC KRAUSE MD This examination was interpreted and the report reviewed and electronically signed by: CEDRIC KRAUSE MD on Dec 15 2024 3:36PM EST [facility] Radiology Study observation (narrative) [facility] Guidance for injection of Kn eeOrdered By: Ccf Provider on 12-15-2024 [facility] SYNOVIAL FLUID MANUAL DIFFon 12-15-2024 DIF TTL, SYNOVIAL FLUID 100 cells counted Normal [facility] Comment on above: Order Comment: Speci men Type: FLUID SPECIMENOrdering Facility: [facility] Address: [address] [id number] Performed By: #### L [id number], RTSYNF ####[facility] LABORATORYCLIA [id number] [place] [address] [place]#### SFCRID ####[facility] LABORATORYCLIA [id number] [place] [address] [place] AMERICA[place] [facility] LABCLIA [id number] [facility] [address] [place] [address] [place] LYMPH%, SF 15 Normal [facility] Comment on above: Order Comment: Speci men Type: FLUID SPECIMENOrdering Facility: [facility] Address: [address] [place], [place] [id number] Performed By: #### L [id number], RTSYNF ####[facility] LABORATORYCLIA [id number] [place] [address] [place]#### SFCRID ####[facility] LABORATORYCLIA [id number] [place] [address] [place] [facility] LABCLIA [id number] [facility] [address] [place] [address] [place] MACRO%, SF 14 Normal [facility] Comment on above: Order Comment: Speci men Type: FLUID SPECIMENOrdering Facility: [facility] Address: [address] [place], [place] [id number] Performed By: #### L [id number], RTSYNF ####[facility] LABORATORYCLIA [id number] [place] [address] [place]#### SFCRID ####[facility] LABORATORYCLIA [id number] [place] [address] [place] [facility]CL[facility] [id number] [facility] [address] [place] [address] [place] MONO%, SF 1 Normal [facility] Comment on above: Order Comment: Speci men Type: FLUID SPECIMENOrdering Facility: [facility] Address: [address] [place], [place] [id number] Performed By: #### L [id number], RTSYNF ####[facility] LABORATORYCLIA [id number] [place] [address] [place]#### SFCRID ####[facility] LABORATORYCLIA [id number] [place], [place] [address] [place] [address] LABCLIA [id number] [place] [address] [place] NEUT% 70 High 0-<25 [facility] Comment on above: Order Comment: Speci men Type: FLUID SPECIMENOrdering Facility: [facility] Address: [address] [place] [address] Performed By: #### L [id number], RTSYNF ####[facility] LABORATORYCLIA [id number] [place] [address] [place]#### SFCRID ####[facility] LABORATORYCLIA [id number] LABCLIA [id number] [place] [address] [place] SYNOVIAL FLUID, CRYSTAL ID/P ATHOLOGIST INTERPRETATIONon 12-15-2024 CRYSTAL PRELIM, SF PRELIMINARY REPORT N o diagnostic crystals seen. SEE FINAL SF PATH REVIEW Normal [facility] Comment on above: Order Comment: Speci men Type: FLUID SPECIMENOrdering Facility: [facility] Address: [address] [place] [address] Performed By: #### L [id number], RTSYNF ####[facility] LABORATORYCLIA [id number] [place] [address] [place]#### SFCRID ####[facility] LABORATORYCLIA [id number] [place] [id number] [facility] LABCLIA [id number] [place] [address] [place] CRYSTAL REVIEW Reviewed by Deepika Greene MD Normal [facility] Comment on above: Order Comment: Speci men Type: FLUID SPECIMENOrdering Facility: [facility] Address: [address] [place], [place] [id number] Performed By: #### L [id number], RTSYNF ####[facility] LABORATORYCLIA [id number] [place] [address] [place]#### SFCRID ####[facility] LABORATORYCLIA [id number] [place] [address] [place] [facility] LABCLIA [id number] [place] [address] [place] Crystals LM Nom (Syn fld) None seen Normal None seen [facility] Comment on above: Order Comment: Speci men Type: FLUID SPECIMENOrdering Facility: [facility] Address: [address] [place] [address] Performed By: #### L [id number], RTSYNF ####[facility] LABORATORYCLIA [id number] [place] [address] [place]#### SFCRID ####[facility] LABORATORYCLIA [id number] [place] [address] [place] [facility] LABCLIA [id number] [place] [address] [place] SYNOVIAL FLUID, ROUTINEon Clarity (Unsp spec) Clear Normal Clear [facility] Comment on above: Order Comment: Speci men Type: FLUID SPECIMENOrdering Facility: [facility] Address: [address] [place] [address] Performed By: #### L [id number], RTSYNF ####[facility] LABORATORYCLIA [id number] [place] [address] [place]#### SFCRID ####[facility] LABORATORYCLIA [id number] [place] [address] [place] [facility] LABCLIA [id number] [place] [address] [place] Color (Syn fld) Yellow Normal Yellow [facility] Comment on above: Order Comment: Speci men Type: FLUID SPECIMENOrdering Facility: [facility] Address: [address] [place] [address] Performed By: #### L [id number], RTSYNF ####[facility] LABORATORYCLIA [id number] [place] [address] [place]#### SFCRID ####[facility] LABORATORYCLIA [id number] [place] [address] [place] [facility] LABCLIA [id number] [place] [address] [place] RBC Manual cnt (Syn fld) [#/Vol] 9000 /uL High <2000 [facility] Comment on above: Order Comment: Speci men Type: FLUID SPECIMENOrdering Facility: [facility] Address: [address] [place] [address] Performed By: #### L [id number], RTSYNF ####GALVAN LABORATORYCLIA [id number] [address] [place]#### SFCRID ####GALVAN LABORATORYCLIA [id number] [place], [place] [address] [place] [address] LABCLIA [id number] [place] [address] [place] Specimen source Nom (Unsp spec) Knee, Left Normal [facility] Comment on above: Order Comment: Speci men Type: FLUID SPECIMENOrdering Facility: [facility] Address: [address] [place] [address] Performed By: #### L [id number], RTSYNF ####GALVAN LABORATORYCLIA [id number] [place] [address] [place]#### SFCRID ####[facility] LABORATORYCLIA [id number] [address] LABCLIA [id number] [place] [id number] [place] WBC Manual cnt (Syn fld) [#/Vol] 964 /uL High 0-200 [facility] Comment on above: Order Comment: Speci men Type: FLUID SPECIMENOrdering Facility: [facility] Address: [address] [address] Performed By: #### L [id number], RTSYNF ####GALVAN LABORATORYCLIA [id number] [place] [address] [facility]#### SFCRID ####GALVAN LABORATORYCLIA [id number] [place] [address] [facility] LABCLIA [id number] [place] [id number] [facility] XR KNEE ASPIRATION LTon 11-25 XR KNEE ASPIRATION LT * * *Final Report* * * DATE OF EXAM: Dec 15 2024 1:46PM MDX 2305 - XR KNEE ASPIRATION LT / PROCEDURE REASON: M25.562-Arthralgia of left lower leg * * * * Physician Interpretation * * * * HISTORY: Arthralgia of left lower leg LEFT KNEE PAIN, HISTORY OF MULTIPLE SURGERIES OF LEFT KNEE Do not lavage with saline. NOTE:->Please use procedural lab order set to place t he specimen order. TECHNIQUE: Pre-procedure Sign-in: Safety Checklist Performed: Yes. The team confirmed the correct patient, correct site, site marking, correct procedure, and correct position. Timeout Time: 1300 Sign-out: Communication performed: Yes. 2 mL 1% lidocaine was infused for local anesthesia. Fluoroscopic Radiation Summary: Plane A, Air Kerma: 0.4 mGy Dose Area Product (DAP): Fluoro time: 0:06 min:sec COMPARISON: 11/07/2024 radiographs RESULT: 20-gauge spinal needle was placed into the intercondylar notch area of the left knee prosthesis under guidance of fluoroscopy. 23 mL of clear orange-colored fluid was aspirated. IMPRESSION: Left knee fluid aspiration as detailed Business Account Specialist: PSCB Transcribe Date/Time: Dec 15 2024 3:35P Dictated by : CEDRIC KRAUSE MD This examination was interpreted and the report reviewed and electronically signed by: CEDRIC KRAUSE MD on Dec 15 2024 3:36PM EST [id number] [facility] 12-01-2024 CNPN Telephone (ORMDNA) BELLA MORILLO ([id number]) 1955 F Date Time Provider Department 12/01/24 BHAVESHNICOLASJACIEL During your visit today, we recorded the following information about you: Margarita Reynolds RN 12/01/2024 3:49 PM Signed An L knee injection order was entered instead of an aspiration order. Please place a IMAGING GUIDED KNEE ASPIRATION LEFT order. Allergies As of Date: 12/01/2024 Noted Allergy Reaction BEES 04/03/2004 10 - Anaphylaxis CODEINE 06/21/2006 5 - Intolerance Comments: migraines ADHESIVE TAPE (ROSINS) 08/17/2005 2 - Rash 9 - Itching ADHESIVE TAPE-SILICONES 16 - Unknown BEE STING 09/24/2015 10 - Anaphylaxis BEE VENOM PROTEIN (HONEY BEE) 10 - Anaphylaxis CORTISONE 08/10/2019 14 - Other: See Comments Comments: Turns red DAKIN'S (SODIUM HYPOCHLORITE SOLU*12/08/2019 16 - Unknown NICKEL 11/24/2019 16 - Unknown VANADIUM 11/24/2019 16 - Unknown Date Reviewed: 12/01/2024 Reviewed by: Valarie Brandt, RT(R) - Fully Assessed Primary Visit Diagnosis:Arthralgia of left lower leg [M25.562] Order(s):IMAGING GUIDED KNEE ASPIRATION LEFT [[id number]] Order #: [id number] FUTURE Prescriptions as of 12/06/2024 - apixaban (ELIQUIS) 5 mg tab(s) Take 1 tablet by mouth two times a day. - metoprolol tartrate, short acting, (LOPRESSOR) 25 mg tablet TAKE 1 TABLET BY MOUTH TWICE A DAY - liothyronine (CYTOMEL) 5 mcg tablet Take 1 tablet by mouth twice daily. - cholecalciferol, Vitamin D3, (VITAMIN D3) 1,250 mcg (50,000 unit) cap capsule Take 50,000 Units by mouth once every month. - levothyroxine (SYNTHROID) 112 mcg tablet Take 1 tablet by mouth once daily. 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] 09/25/2016 Displacement of lumbar intervertebral disc with*05/20/2018 Primary osteoarthritis of right knee [M17.11] 09/15/2017 Trochanteric bursitis of right hip [M70.61] 05/07/2015 Hypertension [I10] 10/12/2017 08/09/2018 At risk for stroke [Z91.89] 11/22/2018 Anemia [D64.9] 06/27/2019 Bursitis of elbow [M70.30] 06/27/2019 Chronic constipation [K59.09] 06/27/2019 Fracture of femur (HCC) [S72.90XA] 06/27/2019 Gastroesophageal reflux disease [K21.9] 06/27/2019 Hypomagnesemia [E83.42] 06/27/2019 Macular drusen [H35.369] 06/27/2019 Encephalopathy [G93.40] 06/27/2019 09/23/2024 Osteoporosis [M81.0] 06/27/2019 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*06/27/2019 Raynaud's disease [I73.00] 06/27/2019 Headache [R51.9] 09/18/2020 Status post ablation of atrial flutter [Z98.890*09/18/2020 Kidney stone [N20.0] 10/08/2021 Cataract [H26.9] 10/08/2021 Decreased glomerular filtration rate (GFR) [R94*10/08/2021 Degeneration of intervertebral disc of lumbar r*10/08/2021 Macular degeneration [H35.30] 10/08/2021 Hematuria syndrome [R31.9] 10/08/2021 Hiatal hernia [K44.9] 10/08/2021 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 [Z*06/14/2023 Iron 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 *02/03/2024 Personal history of colon cancer [Z85.038] 08/03/2024 Atrial fibrillation (HCC) [I48.91] 09/22/2024 Unresponsive episode [R40.4] 09/22/2024 09/23/2024 Acute encephalopathy [G93.40] 09/22/2024 09/23/2024 Leukocytosis [D72.829] 09/22/2024 09/23/2024 Complication of anesthesia [T88.59XA] 09/23/2024 09/23/2024 Typical atrial flutter (HCC) [I48.3] 09/23/2024 Encounter Status:Closed by MARGARITA REYNOLDS on 12/06/24 Normal [facility] C-REACTIVE PROTEINon 025 CRP [Mass/Vol] mg/dL NINF - 0.9 mg/dL [facility] CNOVon 11-07-2024 CNOV Office Visit (DINORAH ) BELLA MORILLO ([id number]) 1955 F Date Time Provider Department 11/07/24 3:15 PM JACIEL HURD During your visit today, we recorded the following information about you: Jaciel Hurd MD 11/07/2024 5:03 PM Signed Orthopaedic Office Note: November 07, 2024 4:59 PM Bella Morillo 69 year old History: This is a very nice 69 year old I saw in Spring 2022 for L knee at that time, the history was: -This is a very nice 66-year-old woman with a complex history involving her left knee. She has had multiple revision operations. Her most recent surgery was with Dr. Reyes on November 072019. This was to a nonhinged constrained system, AESCULAP, with a Marlex mesh reconstruction of the extensor mechanism. -She was immobilized for 7 weeks in a cast and then placed in a hinged brace and allowed to start progressive motion. Her extensor mechanism is reruptured. She also has defect in the arthrotomy and subsequent large subcutaneous fluid collection. -She has a nickel allergy. -Her primary complaint of the fluid collection, the pain, and the loss of active extension. -Did have aspirate postoperatively with Miradia results: -Neg CRP -Neg alpha defensin -479 cells, 62% PMN At the time we talked about revision arthroplasty, retention of implants versus conversion to a hinge, extensor mechanism reconstruction and potential gastroc flap over arthrotomy. She decided to wait. In the interim, she has had fluid drained off her knee 1 time, we do not have the results of this. She is also had a cardiac ablation procedure. She is done with Eliquis soon. She is not having increasing pain, sharp pain, and difficulty ambulating. She remains with an extensor mechanism disruption. Subjective: See above Updated ROS: No changes aside from written above Updated Exam: Left lower Extremity Healed incision Smaller effusion Increased warmth No erythema 45 degree extensor lag Antalgic gait Neurovascular intact Updated Imaging: Revision arthroplasty in place Assessment and Plan: I had a long and honest discussion with Bella about her left knee. Options include limb salvage reconstruction attempt with repeat extensor mechanism reconstruction, conversion to nickel free hinge, versus retention of implants, patellectomy me, gastroc flap possible. The other option would be an above-knee amputation which I think would still be quite functional for her Before we proceed with decision making we should rule out infection definitively with ESR, CRP, and repeat aspiration which I have ordered She will see me when the above is completed I spent a total of approximately 35 minutes on the date of the service which included preparing to see the patient, [id number] patient care, completing clinical documentation, obtaining and/or reviewing separately obtained history, performing a medically appropriate examination, counseling and educating the patient/family/caregiver, ordering medications, tests, or procedures, communicating with other HCPs (not separately reported), independently interpreting results (not separately reported), communicating results to the patient/family/caregiver, and care coordination (not separately reported). Jaciel Hurd MD Orthopaedic Surgery Allergies As of Date: 11/07/2024 Noted Allergy Reaction BEES 04/03/2004 10 - Anaphylaxis CODEINE 06/21/2006 5 - Intolerance Comments: migraines ADHESIVE TAPE (ROSINS) 08/17/2005 2 - Rash 9 - Itching ADHESIVE TAPE-SILICONES 16 - Unknown BEE STING 09/24/2015 10 - Anaphylaxis BEE VENOM PROTEIN (HONEY BEE) 10 - Anaphylaxis CORTISONE 08/10/2019 14 - Other: See Comments Comments: Turns red DAKIN'S (SODIUM HYPOCHLORITE SOLU*12/08/2019 16 - Unknown NICKEL 11/24/2019 16 - Unknown VANADIUM 11/24/2019 16 - Unknown Date Reviewed: 11/07/2024 Reviewed by: Gayle Quiles LPN - Fully Assessed Reason for Visit: Established Patient [175] Knee Pain [132] Knee Replacement [363] Primary Visit Diagnosis:Arthralgia of left lower leg [M25.562] Order(s):SEDIMENTATION RATE, WESTERGREN [SQWSR] Order #: [id number] FUTURE C-REACTIVE PROTEIN [SQCRP] Order #: [id number] FUTURE US ASP/INJ KNEE JT/BURSA LEFT [[id number]] Order #: [id number] FUTURE BACTERIAL CULTURE AND GRAM STAIN, STERILE BODY FLUID [SQBFCUL] Order #: [id number] SYNOVIAL FLUID, ROUTINE [SQRTSYN] Order #: [id number] Prescriptions as of 11/07/2024 - apixaban (ELIQUIS) 5 mg tab(s) Take 1 tablet by mouth two times a day. - metoprolol tartrate, short acting, (LOPRESSOR) 25 mg tablet TAKE 1 TABLET BY MOUTH TWICE A DAY - liothyronine (CYTOMEL) 5 mcg tablet Take 1 tablet by mouth twice daily. - cholecalciferol, Vitamin D3, (VITAMIN D3) 1,250 mcg (50,000 unit) cap capsule Take 50,000 Units by mouth once every month. - levothyroxine (SYNTHROID) 112 mcg t (more content not included)... Normal [facility] CRP SerPl-mCncon 11-07-2024 CRP [Mass/Vol] mg/L Normal <0.9 [facility] Comment on above: Order Comment: Julieta boswell Type: BLOOD SPECIMEN [facility] Address: [address] [place] [address] Performed By: #### 1 988-5 #### [facility] CLIA [id number] [address] [place] [address] [place] CRP [Mass/Vol]on 11-07-2024 Interpretation and review of laboratory results Normal [facility] ESR Westergren method (Bld) [Velocity]on 11-07-2024 ESR (Bld) [Velocity] 8 mm/h [facility] Interpretation and review of laboratory results Normal [facility] ESR (Bld) [Velocity] 8 mm/h Normal 0-20 [facility] Comment on above: Order Comment: Julieta boswell Type: BLOOD SPECIMEN [facility] Address: [address] [place] [address] Performed By: #### 4 537-7 #### [facility] CLIA [id number] [address] [place] [address] [place] XR KNEE 3V AP/LAT/MERCHANT L Ton 11-07-2024 XR KNEE 3V AP/LAT/MERCHANT LT * * *Final Report* * * DATE OF EXAM: Nov 07 2024 3:15PM KHANH 5208 - XR KNEE 3V AP/LAT/MERCHANT LT / PROCEDURE REASON: M25.562-Left knee pain, unspecified chronicity * * * * Physician Interpretation * * * * PROCEDURE: Left knee INDICATION: Left knee pain, unspecified chronicity .Pt c/o left knee pain, states there are times where the pain feels burning TECHNIQUE: XR KNEE 3V AP/LAT/MERCHANT LT COMPARISON: 07/09/2022 FINDINGS: The revision total knee arthroplasty remains in satisfactory position. No periprosthetic lucency or fracture. Stable scattered radiodensities in the soft tissues most prominent anteriorly. No joint effusion. Improved anterior soft tissue swelling compared to previous. Right TKA is noted. IMPRESSION: Stable TKA Business Account Specialist: ANGIE Transcribe Date/Time: Nov 12 2024 3:18P Dictated by : MECCA RODRIGUEZ MD This examination was interpreted and the report reviewed and electronically signed by: MECCA RODRIGUEZ MD on Nov 12 2024 3:20PM EST [id number] Normal [facility] CBC W Auto Differential pane l (Bld)on 11-06-2024 Basophils (Bld) [#/Vol] 0.09 10*3/uL Normal <0.11 [facility] Comment on above: Order Comment: Speci men Type: BLOOD SPECIMENOrdering Facility: [facility] Address: [address] [place] [address] Performed By: #### 5 7021-8 ####[facility] [id number] [place] [address] [place] Basophils/100 WBC (Bld) 1.5 % Normal [facility] Comment on above: Order Comment: Speci men Type: BLOOD SPECIMENOrdering Facility: [facility] Address: [address] [place] [address] Performed By: #### 5 7021-8 ####[facility] [id number] [place] [address] [place] Differential cell count method Nom (Bld) Auto Normal [facility] Comment on above: Order Comment: Speci men Type: BLOOD SPECIMENOrdering Facility: [facility] Address: [address] [place] [address] Performed By: #### 5 7021-8 ####[facility] [id number] [place] [address] [place] Eosinophils (Bld) [#/Vol] 0.58 10*3/uL High <0.46 [facility] Comment on above: Order Comment: Speci men Type: BLOOD SPECIMENOrdering Facility: [facility] Address: [address] [place], [place] [address] Performed By: #### 5 7021-8 ####[facility] MILLWNCLIA [id number] [place] [address] [place] Eosinophils/100 WBC (Bld) 9.6 % Normal [facility] Comment on above: Order Comment: Speci men Type: BLOOD SPECIMENOrdering Facility: [facility] Address: [address] [place] [address] Performed By: #### 5 7021-8 ####[facility]ITALERNESTINALIA [id number] [place] [address] [place] Erythrocyte distribution width (RBC) [Ratio] 13.7 % Normal 11.5-15.0 [facility] Comment on above: Order Comment: Speci men Type: BLOOD SPECIMENOrdering Facility: [facility] Address: [address] [place] [address] Performed By: #### 5 7021-8 ####[facility]GL[facility] [id number] [place] [address] [place] Hematocrit (Bld) [Volume fraction] 36.7 % Normal 36.0-46.0 [facility] Comment on above: Order Comment: Speci men Type: BLOOD SPECIMENOrdering Facility: [facility] Address: [address] [place] [address] Performed By: #### 5 7021-8 ####[facility]ITALNCLIA [id number] [place] [address] [place] Hemoglobin (Bld) [Mass/Vol] 11.9 g/dL Normal 11.5-15.5 [facility] Comment on above: Order Comment: Speci men Type: BLOOD SPECIMENOrdering Facility: [facility] Address: [address] [place] [address] Performed By: #### 5 7021-8 ####[facility]CLIA [id number] [place] [address] [place] Immature granulocytes (Bld) [#/Vol] 10*3/uL Normal <0.10 [facility] Comment on above: Order Comment: Speci men Type: BLOOD SPECIMENOrdering Facility: [facility] Address: [address] [place] [address] Performed By: #### 5 7021-8 ####[facility] [id number] [place] [address] [place] Immature granulocytes/100 WBC (Bld) 0.3 % Normal [facility] Comment on above: Order Comment: Speci men Type: BLOOD SPECIMENOrdering Facility: [facility] Address: [address] [place] [address] Performed By: #### 5 7021-8 ####[facility]ITALNCLI [id number] [place] [address] [place] Lymphocytes (Bld) [#/Vol] 1.44 10*3/uL Normal 1.00-4.00 [facility] Comment on above: Order Comment: Speci men Type: BLOOD SPECIMENOrdering Facility: [facility] Address: [address] [place] [address] Performed By: #### 5 7021-8 ####[facility] [id number] [place] [address] [place] Lymphocytes/100 WBC (Bld) 23.8 % Normal [facility] Comment on above: Order Comment: Speci men Type: BLOOD SPECIMENOrdering Facility: [facility] Address: [address] [place] [address] Performed By: #### 5 7021-8 ####[facility]ITALNCLI [id number] [place] [address] [place] MCH (RBC) [Entitic mass] 29.0 pg Normal 26.0-34.0 [facility] Comment on above: Order Comment: Speci men Type: BLOOD SPECIMENOrdering Facility: [facility] Address: [address] [place] [address] Performed By: #### 5 7021-8 ####[facility] MALINA [id number] [place] [address] [place] MCHC (RBC) [Mass/Vol] 32.4 g/dL Normal 30.5-36.0 [facility] Comment on above: Order Comment: Speci men Type: BLOOD SPECIMENOrdering Facility: [facility] Address: [address] [place], [place] [address] Performed By: #### 5 7021-8 ####[facility]ITALROSEY [id number] [place] [address] [place] MCV (RBC) [Entitic vol] 89.3 fL Normal 80.0-100.0 [facility] Comment on above: Order Comment: Speci men Type: BLOOD SPECIMENOrdering Facility: [facility] Address: [address] [place] [address] Performed By: #### 5 7021-8 ####[facility]ITALRO[facility] [id number] [place] [address] [place] Monocytes (Bld) [#/Vol] 0.69 10*3/uL Normal <0.87 [facility] Comment on above: Order Comment: Speci men Type: BLOOD SPECIMENOrdering Facility: [facility] Address: [address] [place] [address] Performed By: #### 5 7021-8 ####[facility]ITALNCLIA [id number] [place] [address] [place] Monocytes/100 WBC (Bld) 11.4 % Normal [facility] Comment on above: Order Comment: Speci men Type: BLOOD SPECIMENOrdering Facility: [facility] Address: [address] [place] [address] Performed By: #### 5 7021-8 ####[facility] MILLTOWNCLIA [id number] [place] [address] [place] Neutrophils (Bld) [#/Vol] 3.23 10*3/uL Normal 1.45-7.50 [facility] Comment on above: Order Comment: Speci men Type: BLOOD SPECIMENOrdering Facility: [facility] Address: [address] [place] [address] Performed By: #### 5 7021-8 ####[facility] [id number] [place] [address] [place] Neutrophils/100 WBC (Bld) 53.4 % Normal [facility] Comment on above: Order Comment: Speci men Type: BLOOD SPECIMENOrdering Facility: [facility] Address: [address] [place] [address] Performed By: #### 5 7021-8 ####[facility] [id number] [place] [address] [place] Nucleated RBC (Bld) [#/Vol] 10*3/uL Normal <0.01 [facility] Comment on above: Order Comment: Speci men Type: BLOOD SPECIMENOrdering Facility: [facility] Address: [address] [place] [address] Performed By: #### 5 7021-8 ####[facility] [id number] [place] [address] [place] Nucleated RBC/100 WBC (Bld) [Ratio] 0.0 /100 WBC Normal [facility] Comment on above: Order Comment: Speci men Type: BLOOD SPECIMENOrdering Facility: [facility] Address: [address] [place] [address] Performed By: #### 5 7021-8 ####[facility]ITALNCLIA [id number] [place] [address] [place] Platelet mean volume (Bld) [Entitic vol] 10.5 fL Normal 9.0-12.7 [facility] Comment on above: Order Comment: Speci men Type: BLOOD SPECIMENOrdering Facility: [facility] Address: [address] [place] [address] Performed By: #### 5 7021-8 ####[facility]NCLIA [id number] [place] [address] [place] Platelets (Bld) [#/Vol] 234 10*3/uL Normal 150-400 [facility] Comment on above: Order Comment: Speci men Type: BLOOD SPECIMENOrdering Facility: [facility] Address: [address] [place] [address] Performed By: #### 5 7021-8 ####[facility]NCLIA [id number] [place] [address] [place] RBC (Bld) [#/Vol] 4.11 10*6/uL Normal 3.90-5.20 [facility] Comment on above: Order Comment: Speci men Type: BLOOD SPECIMENOrdering Facility: [facility] Address: [address] [place] [address] Performed By: #### 5 7021-8 ####[facility]ITAL[facility]CLIA [id number] [place] [address] [place] WBC (Bld) [#/Vol] 6.05 10*3/uL Normal 3.70-11.00 [facility] Comment on above: Order Comment: Speci men Type: BLOOD SPECIMENOrdering Facility: [facility] Address: [address] [place] [address] Performed By: #### 5 7021-8 ####[facility]ITALWNCLIA [id number] [place] [address] [place] Ferritin SerPl-mCncon 2024 Ferritin [Mass/Vol] 131.0 ng/mL Normal 14.7-205.1 [facility] Comment on above: Order Comment: Speci men Type: BLOOD SPECIMENOrdering Facility: [facility] Address: [address] [place] [address] Performed By: #### 2 276-4, 63142-8 ####[facility] LABCLIA [id number] [place] [id number] [place] Iron and Iron binding capaci ty panelon 11-06-2024 Iron [Mass/Vol] 47 ug/dL Normal 41-186 [facility] Comment on above: Order Comment: Speci men Type: BLOOD SPECIMENOrdering Facility: [facility] Address: [address] [place] [address] Performed By: #### 2 276-4, 36065-7 ####[facility] LABCLIA [id number] [address] [place] Iron binding capacity [Mass/Vol] 265 ug/dL Normal 232-386 [facility] Comment on above: Order Comment: Speci men Type: BLOOD SPECIMENOrdering Facility: [facility] Address: [address] [place] [address] Performed By: #### 2 276-4, 71700-4 ####[facility] LABIA [id number] [place] [id number] [place] Iron/TIBC [Molar ratio] 17.7 % Normal 15.0-57.0 [facility] Comment on above: Order Comment: Speci men Type: BLOOD SPECIMENOrdering Facility: [facility] Address: [address] [place] [address] Performed By: #### 2 276-4, 02224-3 ####[facility] LABCLIA [id number] [place] [id number] [place] CNCOon 10-26-2024 CNCO Letter Text Letter Text Normal [facility] CNPNon 10-11-2024 CNPN Telephone (AGCARDPOB ) BELLA MORILLO ([id number]) 1955 F Date Time Provider Department 10/11/24 CHI ZAMORAANDROVICHAGCARDPOB During your visit today, we recorded the following information about you: Margarita Rangel 10/11/2024 9:52 AM Signed Post PVAI orders pended for signature Allergies As of Date: 10/11/2024 Noted Allergy Reaction BEES 04/03/2004 10 - Anaphylaxis CODEINE 06/21/2006 5 - Intolerance Comments: migraines ADHESIVE TAPE (ROSINS) 08/17/2005 2 - Rash 9 - Itching ADHESIVE TAPE-SILICONES 16 - Unknown BEE STING 09/24/2015 10 - Anaphylaxis BEE VENOM PROTEIN (HONEY BEE) 10 - Anaphylaxis CORTISONE 08/10/2019 14 - Other: See Comments Comments: Turns red DAKIN'S (SODIUM HYPOCHLORITE SOLU*12/08/2019 16 - Unknown NICKEL 11/24/2019 16 - Unknown VANADIUM 11/24/2019 16 - Unknown Date Reviewed: 10/06/2024 Reviewed by: Ana Banegas MA - Fully Assessed Reason for Visit: Orders [681] Primary Visit Diagnosis:Persistent atrial fibrillation (HCC) [I48.19] Other Visit Diagnosis:Dyspnea, unspecified type [R06.00] Order(s):ECHO [203469] Order #: [id number]: 1 FUTURE perflutren lipid microspheres 1.3 mL in NaCl (PF) 0.9% 10 mL injection (DEFINITY)Disp: Rfl: sodium chloride 0.9 % (flush) 10 mL (BD POSIFLUSH)Disp: Rfl: OUTSIDE VENDOR CARDIAC OUTPATIENT EXTENDED RHYTHM RECORDING (WITHOUT TELEMETRY) [0853817] Order #: [id number]: 1 FUTURE OUTSIDE VENDOR CARDIAC OUTPATIENT EXTENDED RHYTHM RECORDING (WITHOUT TELEMETRY) [[id number]] Order #: [id number]: 1 Prescriptions as of 10/11/2024 - apixaban (ELIQUIS) 5 mg tab(s) Take 1 tablet by mouth two times a day. - metoprolol tartrate, short acting, (LOPRESSOR) 25 mg tablet TAKE 1 TABLET BY MOUTH TWICE A DAY - liothyronine (CYTOMEL) 5 mcg tablet Take 1 tablet by mouth twice daily. - cholecalciferol, Vitamin D3, (VITAMIN D3) 1,250 mcg (50,000 unit) cap capsule Take 50,000 Units by mouth once every month. - levothyroxine (SYNTHROID) 112 mcg tablet Take 1 tablet by mouth once daily. 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 [* Palpitations [R00.2] PAC (premature atrial contraction) [I49.1] Essential hypertension, benign [I10] 08/09/2018 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] 09/25/2016 Displacement of lumbar intervertebral disc with*05/20/2018 Primary osteoarthritis of right knee [M17.11] 09/15/2017 Trochanteric bursitis of right hip [M70.61] 05/07/2015 Hypertension [I10] 10/12/2017 08/09/2018 At risk for stroke [Z91.89] 11/22/2018 Anemia [D64.9] 06/27/2019 Bursitis of elbow [M70.30] 06/27/2019 Chronic constipation [K59.09] 06/27/2019 Fracture of femur (HCC) [S72.90XA] 06/27/2019 Gastroesophageal reflux disease [K21.9] 06/27/2019 Hypomagnesemia [E83.42] 06/27/2019 Macular drusen [H35.369] 06/27/2019 Encephalopathy [G93.40] 06/27/2019 09/23/2024 Osteoporosis [M81.0] 06/27/2019 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*06/27/2019 Raynaud's disease [I73.00] 06/27/2019 Headache [R51.9] 09/18/2020 Status post ablation of atrial flutter [Z98.890*09/18/2020 Kidney stone [N20.0] 10/08/2021 Cataract [H26.9] 10/08/2021 Decreased glomerular filtration rate (GFR) [R94*10/08/2021 Degeneration of intervertebral disc of lumbar r*10/08/2021 Macular degeneration [H35.30] 10/08/2021 Hematuria syndrome [R31.9] 10/08/2021 Hiatal hernia [K44.9] 10/08/2021 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 [Z*06/14/2023 Iron 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 *02/03/2024 Personal history of colon cancer [Z85.038] 08/03/2024 Atrial fibrillation (HCC) [I48.91] 09/22/2024 Unresponsive episode [R40.4] 09/22/2024 09/23/2024 Acute encephalopathy [G93.40] 09/22/2024 09/23/2024 Leukocytosis [D72.829] 09/22/2024 09/23/2024 Complication of anesthesia [T88.59XA] 09/23/2024 09/23/2024 Typical atrial flutter (HCC) [I48.3] 09/23/2024 Prescriptions ordered this encounter Disp Refills Start End PERFLUTREN LIPID MICROSPHERES 1.1 MG* 10/11/2024 10/18/2024 Route: IV SODIUM CHLORIDE 0.9 % (FLUSH) INJECT* 10/11/2024 10/18/2024 Route: IV Encounter Status:Closed by CHI ZAMORA on 10/11/24 [facility] CNOVon 10-06-2024 CNOV Office Visit (DEMETRI CECILIA) BELLA MORILLO ([id number]) 1955 F Date Time Provider Department 10/06/24 11:00 AM CHI ZAMORAHAGCARDPOB During your visit today, we recorded the following information about you: Pulse Blood pressure Weight 64/minute 121/73 68 kg Chi Zamora MD 10/06/2024 11:38 AM [facility] SECTION OF CARDIAC PACING and ELECTROPHYSIOLOGY OUTPATIENT VISIT DATE October 06, 2024 OUTPATIENT VISIT TYPE ESTABLISHED PRIMARY CARE PHYSICIAN: Sridhar Montero IV [address] [place] [address] HISTORY OF PRESENT ILLNESS: rior history, edited as needed: 69 year female with history of PAF, s/p catheter ablation approximately 25 years ago and repeat radiofrequency ablation at [facility] in 2012, has been maintained on low-dose propafenone for symptomatic PACs, IZN9-YD5-DEJr score of 1 for gender only, not anticoagulated, developed an episode of atrial fibrillation in early 2018, converted spontaneously. That was the first symptomatic episode of atrial fibrillation in the last 6 years. Since then her propafenone was increased to 225 mg 3 times a day. She was continued on metoprolol as well. Her ablation was performed in April 2012. Achieving electrical isolation of the left superior and left pulmonary veins required extensive ablation of the region area between left atrial appendage and the veins. 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 Interval history: Bella presents for follow-up. She has been feeling well, palpitation, dyspnea, or dizziness. She remains on propafenone with no obvious complications. She is contemplating another orthopedic surgery. Recent 14-day event monitor demonstrated sinus rhythm with infrequent PACs and no sustained arrhythmia. Echocardiogram showed normal LV systolic function, no significant LVH or valve issues. ECG today shows sinus rhythm at 60 bpm with normal intervals. Interval history: Bella presents for follow-up. In the last couple months she had several episodes of atrial fibrillation lasting for hours. She experienced severe palpitation, subsequent fatigue, and some degree of dyspnea. Both episodes resolved spontaneously. She was seen in the ER once and stay home without the time. Since then she had several brief episodes for which she did not seek medical attention. She is not on anticoagulation. Her UXF3-WE6-ZTAg score is currently 2, for gender and age. She was recently diagnosed with anemia and is planned for lower endoscopy. Remains on propafenone for PACs. ECG shows sinus bradycardia 58 beats minute. Interval history: Bella presents for follow-up. She underwent catheter ablation for atrial fibrillation and atrial flutter about 2 weeks ago, and it appears that this appointment was not scheduled prior to procedure. She reports feeling well, denies palpitation, chest comfort, or dizziness. She continues having skipped heartbeats for which she is maintained on propafenone. ECG shows sinus rhythm at 60 beats minute with normal intervals. Remains on oral anticoagulation. PAST MEDICAL HISTORY Diagnosis Date Anemia Arthritis Atrial fibrillation (HCC) Atrophic vaginitis Dyspareunia in female Family history of breast cancer Family history of colon cancer offered Tasha Tenorio; pt needs to complete genetic counseling Family history of malignant melanoma Femur fracture (HCC) trip/fall from standing height High risk for hip fracture 05/2019 FRAX Hip 3% History of transfusion 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 Knee pain Macular degeneration Migraine with aura Osteopenia 2010 PAC (premature atrial contraction) Palpitations Pituitary disorder (HCC) prolactin elevation on reglan Postmenopausal osteoporosis 2015 Thyrotoxicosis without mention of goiter or other cause Uterine fibroid Vitamin D deficiency MEDICATIONS: apixaban (ELIQUIS) 5 mg tab(s) Take 1 tablet by mouth two times a day. metoprolol tartrate, short acting, (LOPRESSOR) 25 mg tablet TAKE 1 TABLET BY MOUTH TWICE A DAY liothyronine (CYTOMEL) 5 mcg tablet Take 1 tablet by mouth twice daily. cholecalciferol, Vitamin D3, (VITAMIN D3) 1,250 mcg (50,000 unit) cap capsule Take 50,000 Units by mouth once every month. levothyroxine (SYNTHROID) 112 mcg tablet Take 1 tablet by mouth once daily. Review of Systems Constitutional: Negative for fatigue. Respiratory: Negative for shortness of breath. Cardiovascular: Negative for chest pain and palpitations. Neurological: Negative for syncope. Psychiatric/Behavioral: The patient is not nervous/anxious. PHYSICAL EXAMINATION: BP 121/73 (BP Site: Right Arm, BP Position: Sitting, BP Cuff Size: Regular Adult) Pulse 64 Wt 150 lb (68 k (more content not included)... Normal [facility] ECG B/O W INTERP (MED OFFICE )on 10-06-2024 Normal sinus rhythm at 62 bpm, NE 180, QRS 90, QTc 400 ms, normal axis. [facility] XR FEMUR MINIMUM 2 VIEWS LEF Ton 10-01-2024 XR FEMUR MINIMUM 2 VIEWS LEFT ORIGINAL EXAMINATION: 4 XRAY VIEWS OF THE LEFT FEMUR 10/01/2024 12:17 pm COMPARISON: None. HISTORY: ORDERING SYSTEM PROVIDED HISTORY: Reason for Exam: pain FINDINGS: Bone demineralization. Femoroacetabular joint is maintained. 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 There are multiple punctate foreign bodies in the soft tissues which may be related to postsurgical metallic debris. Knee joint effusion with swelling over the anterior knee. No evidence of periprosthetic lucency or fracture. IMPRESSION: 1. 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 No evidence of periprosthetic lucency or fracture. 2. Knee joint effusion with swelling over the anterior knee. If there is clinical concern for infection recommend correlation with aspiration. Interpreted by: Yuridia Yanez Preliminary Report By: Yuridia Yanez Electronically signed By Yuridia Yanez Dictated Date: 10/01/2024 12:34:49 PM Prelim Date: 10/01/2024 12:36:21 PM Sign Date: 10/01/2024 12:36:21 PM Ordering Provider: MARGARITA Wagner [facility] Basic metabolic 2000 panelon 09-23-2024 Anion gap [Moles/Vol] 11 mmol/L Normal 8-15 [facility] Comment on above: Order Comment: Speci men Type: BLOOD SPECIMENOrdering Facility: [facility] Address: [address] [place] [address] Performed By: #### 2 4321-2, 10918-8, 3024-7, 3051-0, 2777-1 ####[facility] LABORATORYCLIA [id number] [place] [address] [place] Calcium [Mass/Vol] 8.8 mg/dL Normal 8.5-10.2 [facility] Comment on above: Order Comment: Speci men Type: BLOOD SPECIMENOrdering Facility: [facility] Address: [address] [place] [address] Performed By: #### 2 4321-2, 90452-7, 3024-7, 3051-0, 2777-1 ####[facility] LABORATORYCLIA [id number] [place] [address] [place] Chloride [Moles/Vol] 102 mmol/L Normal 98-107 [facility] Comment on above: Order Comment: Speci men Type: BLOOD SPECIMENOrdering Facility: [facility] Address: [address] [place] [address] Performed By: #### 2 4321-2, 18792-1, 3024-7, 3051-0, 2777-1 ####[facility] LABORATORYCLIA [id number] [place] [address] [place] CO2 [Moles/Vol] 26 mmol/L Normal 22-30 [facility] Comment on above: Order Comment: Speci men Type: BLOOD SPECIMENOrdering Facility: [facility] Address: [address] [place] [address] Performed By: #### 2 4321-2, 49211-2, 3024-7, 3051-0, 2777-1 ####[facility] LABORATORYCLIA [id number] [place] [address] [place] Creatinine [Mass/Vol] 0.81 mg/dL Normal 0.58-0.96 [facility] Comment on above: Order Comment: Speci men Type: BLOOD SPECIMENOrdering Facility: [facility] Address: [address] [place] [address] Performed By: #### 2 4321-2, 57777-0, 3024-7, 3051-0, 2777-1 ####[facility] LABORATORYCLIA [id number] [place] [id number] [place] Creatinine and Glomerular filtration rate.predicted panel (S/P/Bld) 80 mL/min/1.73m??? Normal >=60 [facility] Comment on above: Order Comment: Julieta boswell Type: BLOOD SPECIMENOrdering Facility: [facility] Address: [address] [place] [address] Result Comment: Valarie mated Glomerular Filtration Rate (eGFR) is calculated using the 2020 CKD-EPI creatinine equation. This equation utilizes serum creatinine, sex, and age as parameters. The creatinine assay has traceable calibration to isotope dilution-mass spectrometry. Refer to KDIGO guidelines for clinical interpretation. In patients with unstable renal function, e.g. those with acute kidney injury, the eGFR may not accurately reflect actual GFR. Performed By: #### 2 4321-2, 52528-1, 3024-7, 3051-0, 2777-1 ####[facility] LABORATORYCLIA [id number] [place] [address] [place] Glucose [Mass/Vol] 100 mg/dL High 74-99 [facility] Comment on above: Order Comment: Julieta boswell Type: BLOOD SPECIMENOrdering Facility: [facility] Address: [address] [place] [address] Result Comment: The [place] Diabetes Association (ADA) provides guidance for cutoff values for fasting glucose and random glucose. The ADA defines fasting as no caloric intake for at least 8 hours. Fasting plasma glucose results between 100 to 125 mg/dL indicate increased risk for diabetes (prediabetes). Fasting plasma glucose results greater than or equal to 126 mg/dL meet the criteria for diagnosis of diabetes. In the absence of unequivocal hyperglycemia, results should be confirmed by repeat testing. In a patient with classic symptoms of hyperglycemia or hyperglycemic crisis, random plasma glucose results greater than or equal to 200 mg/dL meet the criteria for diagnosis of diabetes. Reference: Standards of Medical Care in Diabetes 2016, [place] Diabetes Association. Diabetes Care. 2016.39(Suppl 1). Performed By: #### 2 4321-2, 16896-4, 3024-7, 3051-0, 2777-1 ####[facility] LABORATORYCLIA [id number] [place] [address] [place] Potassium [Moles/Vol] 4.3 mmol/L Normal 3.7-5.1 [facility] Comment on above: Order Comment: Speci men Type: BLOOD SPECIMENOrdering Facility: [facility] Address: [address] [place] [address] Performed By: #### 2 4321-2, 03520-1, 3024-7, 3051-0, 2777-1 ####[facility] LABORATORYCLIA [id number] [address] STATES OF [facility] Sodium [Moles/Vol] 139 mmol/L Normal 136-144 [facility] Comment on above: Order Comment: Speci men Type: BLOOD SPECIMENOrdering Facility: [facility] Address: [address] [place] [address] Performed By: #### 2 4321-2, 49183-2, 3024-7, 3051-0, 277-1 ####[facility] LABORATORYCLIA [id number] [address] STATES OF [facility] Urea nitrogen [Mass/Vol] 15 mg/dL Normal 7-21 [facility] Comment on above: Order Comment: Speci men Type: BLOOD SPECIMENOrdering Facility: [facility] Address: [address] [place] [address] Performed By: #### 2 4321-2, 32069-1, 3024-7, 3051-0, 2777-1 ####[facility] LABORATORYCLIA [id number] [place] [address] [place] CBC panel Auto (Bld)on 09-23 Erythrocyte distribution width (RBC) [Ratio] 13.6 % Normal 11.5-15.0 [facility] Comment on above: Order Comment: Speci men Type: BLOOD SPECIMENOrdering Facility: [facility] Address: [address] [place] [address] Performed By: #### 5 8410-2 ####[facility] LABORATORYCLIA [id number] [address] Hematocrit (Bld) [Volume fraction] 34.1 % Low 36.0-46.0 [facility] Comment on above: Order Comment: Speci men Type: BLOOD SPECIMENOrdering Facility: [facility] Address: [address] [place] [address] Performed By: #### 5 8410-2 ####[facility] LABORATORYCLIA [id number] [address] OF [facility] Hemoglobin (Bld) [Mass/Vol] 11.0 g/dL Low 11.5-15.5 [facility] Comment on above: Order Comment: Speci men Type: BLOOD SPECIMENOrdering Facility: [facility] Address: [address] [place] [address] Performed By: #### 5 8410-2 ####[facility] LABORATORYCLIA [id number] [address] STATES OF [facility] MCH (RBC) [Entitic mass] 29.6 pg Normal 26.0-34.0 [facility] Comment on above: Order Comment: Speci men Type: BLOOD SPECIMENOrdering Facility: [facility] Address: [address] [place] [address] Performed By: #### 5 8410-2 ####[facility] LABORATORYCLIA [id number] [address] [place] MCHC (RBC) [Mass/Vol] 32.3 g/dL Normal 30.5-36.0 [facility] Comment on above: Order Comment: Speci men Type: BLOOD SPECIMENOrdering Facility: [facility] Address: [address] [place] [address] Performed By: #### 5 8410-2 ####[facility] LABORATORYCLIA [id number] [address] MCV (RBC) [Entitic vol] 91.7 fL Normal 80.0-100.0 [facility] Comment on above: Order Comment: Speci men Type: BLOOD SPECIMENOrdering Facility: [facility] Address: [address] [place] [address] Performed By: #### 5 8410-2 ####[facility] LABORATORYCLIA [id number] [address] [place] Nucleated RBC (Bld) [#/Vol] 10*3/uL Normal <0.01 [facility] Comment on above: Order Comment: Speci men Type: BLOOD SPECIMENOrdering Facility: [facility] Address: [address] [place] [address] Performed By: #### 5 8410-2 ####[facility] LABORATORYCLIA [id number] [address] [place] Platelet mean volume (Bld) [Entitic vol] 11.0 fL Normal 9.0-12.7 [facility] Comment on above: Order Comment: Speci men Type: BLOOD SPECIMENOrdering Facility: [facility] Address: [address] [place] [address] Performed By: #### 5 8410-2 ####[facility] LABORATORYCLIA [id number] [address] [place] Platelets (Bld) [#/Vol] 217 10*3/uL Normal 150-400 [facility] Comment on above: Order Comment: Speci men Type: BLOOD SPECIMENOrdering Facility: [facility] Address: [address] [place] [address] Performed By: #### 5 8410-2 ####[facility] LABORATORYCLIA [id number] [address] [place] RBC (Bld) [#/Vol] 3.72 10*6/uL Low 3.90-5.20 [facility] Comment on above: Order Comment: Speci men Type: BLOOD SPECIMENOrdering Facility: [facility] Address: [address] [place] [address] Performed By: #### 5 8410-2 ####[facility] LABORATORYCLIA [id number] [place] [address] [place] WBC (Bld) [#/Vol] 7.56 10*3/uL Normal 3.70-11.00 [facility] Comment on above: Order Comment: Speci men Type: BLOOD SPECIMENOrdering Facility: [facility] Address: [facility] [place] [address] Performed By: #### 5 8410-2 ####[facility] LABORATORYCLIA [id number] [place] [address] [facility] CNDSon 09-23-2024 CNDS HNO ID: [id number] Author: TARAH GOLDSMITH MD Service: Electrophysiology Author Type: Physician Type: Discharge Summary Filed: 09/23/2024 10:00 Note Text: Additoinal discharge information Patient seen and examined at bedside No chest pain SOB dizziness. Has some groin site soreness Earlier had a 'cramp left lower chest. Alert Oriented x 3 Speech nl Lungs CTA CVS nl S1S2 no murmur Tele SR occ pAc Groin sites soft, no bleeding. L E no edema Patient being discharged and post procedure instructions discussed To stop propafenone Ct eliquis FU in EP clinic as scheduled. Normal [facility] CNPNon 09-23-2024 CNPN Telephone (AKPRAD) BELLA MORILLO ([id number]) 1955 F Date Time Provider Department 09/23/24 TARAH GOLDSMITH During your visit today, we recorded the following information about you: Tarah Goldsmith MD 09/23/2024 10:02 AM Signed Patient discharged post PFA Demar and Afib Needs post discharge monitoring echo and follow ups to be placed Tarah Goldsmith MD Allergies As of Date: 09/23/2024 Noted Allergy Reaction BEES 04/03/2004 10 - Anaphylaxis CODEINE 06/21/2006 5 - Intolerance Comments: migraines ADHESIVE TAPE (ROSINS) 08/17/2005 2 - Rash 9 - Itching ADHESIVE TAPE-SILICONES 16 - Unknown BEE STING 09/24/2015 10 - Anaphylaxis BEE VENOM PROTEIN (HONEY BEE) 10 - Anaphylaxis CORTISONE 08/10/2019 14 - Other: See Comments Comments: Turns red DAKIN'S (SODIUM HYPOCHLORITE SOLU*12/08/2019 16 - Unknown NICKEL 11/24/2019 16 - Unknown VANADIUM 11/24/2019 16 - Unknown Date Reviewed: 09/22/2024 Reviewed by: Lilly Middleton, RT(R) - Fully Assessed Prescriptions as of 09/23/2024 - apixaban (ELIQUIS) 5 mg tab(s) Take 1 tablet by mouth two times a day. - metoprolol tartrate, short acting, (LOPRESSOR) 25 mg tablet TAKE 1 TABLET BY MOUTH TWICE A DAY - liothyronine (CYTOMEL) 5 mcg tablet Take 1 tablet by mouth twice daily. - cholecalciferol, Vitamin D3, (VITAMIN D3) 1,250 mcg (50,000 unit) cap capsule Take 50,000 Units by mouth once every month. - levothyroxine (SYNTHROID) 112 mcg tablet Take 1 tablet by mouth once daily. Facility-Administered Medications as of 09/23/2024 - sodium chloride 0.9 % (flush) 2-10 mL (BD POSIFLUSH) - perflutren lipid microspheres 1.1 mg/mL 1.3 mL injection (DEFINITY) - liothyronine 5 mcg tab(s) (CYTOMEL) - pantoprazole DR 40 mg tab(s) (PROTONIX) - liothyronine 25 mcg tab(s) (CYTOMEL) - propafenone 225 mg tab(s) (RYTHMOL) - metoprolol tartrate (short acting) 25 mg tab(s) (LOPRESSOR) - HYDROcodone 5 mg - acetaminophen 325 mg tablet (NORCO) - apixaban 5 mg tab(s) (ELIQUIS) - NaCl 0.9% iv flush bag - nitroglycerin sublingual 0.4 mg tab(s) (NITROQUICK) - atropine 0.4 mg injection - acetaminophen 650 mg tab(s) (TYLENOL) - iv contrast (radiology procedure) - potassium chloride 20-40 mEq oral powder (KLOR-CON) - potassium chloride iv piggyback 20 mEq/100 mL - sodium phosphate 30 mmol in D5W 250 mL - sodium phosphate 45 mmol in D5W 250 mL - magnesium sulfate iv piggyback in sterile water 2 g 50 mL - calcium gluconate iv piggyback 2 g in NaCl (iso-osmotic) 100 mL - senna-docusate 8.6-50 mg 1 tablet (SENNA-S) - levothyroxine 112 mcg tab(s) (SYNTHROID) Problem List As Of Date 09/23/2024 Noted Resolved Unspecified hypothyroidism [E03.9] 10/02/2002 10/04/2015 Paroxysmal atrial fibrillation (HCC) [I48.0] 06/21/2006 PAIN JOINT, KNEE [M25.569] 06/07/2008 STIFF JOINT LOWER LEG [M25.669] 06/07/2008 Follow-up examination, following other surgery *07/16/2008 10/04/2015 Hypothyroidism [E03.9] Unspecified vitamin D deficiency [E55.9] 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 [* Palpitations [R00.2] PAC (premature atrial contraction) [I49.1] Essential hypertension, benign [I10] 08/09/2018 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] 09/25/2016 Displacement of lumbar intervertebral disc with*05/20/2018 Primary osteoarthritis of right knee [M17.11] 09/15/2017 Trochanteric bursitis of right hip [M70.61] 05/07/2015 Hypertension [I10] 10/12/2017 08/09/2018 At risk for stroke [Z91.89] 11/22/2018 Anemia [D64.9] 06/27/2019 Bursitis of elbow [M70.30] 06/27/2019 Chronic constipation [K59.09] 06/27/2019 Fracture of femur (HCC) [S72.90XA] 06/27/2019 Gastroesophageal reflux disease [K21.9] 06/27/2019 Hypomagnesemia [E83.42] 06/27/2019 Macular drusen [H35.369] 06/27/2019 Encephalopathy [G93.40] 06/27/2019 Osteoporosis [M81.0] 06/27/2019 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*06/27/2019 Raynaud's disease [I73.00] 06/27/2019 Headache [R51.9] 09/18/2020 Status post ablation of atrial flutter [Z98.890*09/18/2020 Kidney stone [N20.0] 10/08/2021 Cataract [H26.9] 10/08/2021 Decreased glomerular filtration rate (GFR) [R94*10/08/2021 Degeneration of intervertebral disc of lumbar r*10/08/2021 Macular degeneration [H35.30] 10/08/2021 Hematuria syndrome [R31.9] 10/08/2021 Hiatal hernia [K44.9] 10/08/2021 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 [Z*06/14/2023 Iron 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 *02/03/2024 Personal history of colon cancer [Z85.038] 08/03/2024 Atrial fibrillation (HCC) [I48.91] 09/22/2024 Unresponsive episode [R40.4] 09/22/2024 09/23/2024 Acute encephalopathy [G93.40] 09/22/2024 09/23/2024 Leukocytosis [D72.829] 09/22/2024 09/23/2024 Complication of anesthesia [T88.59XA] 09/23/2024 09/23/2024 Typical atrial flutter (HCC) [I48.3] 09/23/2024 Encounter Status:Closed by TARAH GOLDSMITH on 09/23/24 Normal [facility] Magnesium SerPl-mCncon 09-23 Magnesium [Mass/Vol] 2.8 mg/dL High 1.7-2.3 [facility] Comment on above: Order Comment: Speci men Type: BLOOD SPECIMENOrdering Facility: [facility] Address: [address] [place], [place] [address] [address] Performed By: #### 2 4321-2, 00777-9, 3024-7, 3051-0, 2777-1 ####[facility] LABORATORYCLIA [id number] [address] [place] Phosphate SerPl-mCncon 09-23 Phosphate [Mass/Vol] 3.5 mg/dL Normal 2.7-4.8 [facility] Comment on above: Order Comment: Julieta boswell Type: BLOOD SPECIMENOrdering Facility: [facility] Address: [address] [place] [address] Performed By: #### 2 4321-2, 64293-9, 3024-7, 3051-0, 2777-1 ####[facility] LABORATORYCLIA [id number] [address] STATES OF [facility] T3Free SerPl-mCncon 09-24-19 25 Free T3 [Mass/Vol] 3.5 pg/mL Normal 2.3-4.1 [facility] Comment on above: Order Comment: Julieta boswell Type: BLOOD SPECIMENOrdering Facility: [facility] Address: [address] [place] [address] Performed By: #### 2 4321-2, 57565-3, 3024-7, 3051-0, 2777-1 ####[facility] LABORATORYCLIA [id number] [address] [place] T4 Free SerPl-mCncon 025 Free T4 [Mass/Vol] 1.1 ng/dL Normal 0.9-1.7 [facility] Comment on above: Order Comment: Julieta boswell Type: BLOOD SPECIMENOrdering Facility: [facility] Address: [address] [place] [address] Performed By: #### 2 4321-2, 80894-8, 3024-7, 3051-0, 2777-1 ####[facility] LABORATORYCLIA [id number] [place] [address] [place] ALLIED HEALTHon 09-22-2024 ALLIED HEALTH HNO ID: [id number] Author: CARMITA TORO, gravity prospecting observer Service: ? Author Type: Technologist Type: Allied Health Filed: 09/22/2024 18:33 Note Text: Radiology Service Progress Note PATIENT NAME: Bella Morillo DATE OF SERVICE: September 22, 2024 TIME: 6:33 PM PATIENT IDENTITY VERIFICATION COMPLETED USING TWO (2) IDENTIFIERS: Name and Date of confirmed by identification band and Name and Date of obtained from a relative, guardian or prior caregiver.. FALL SCREENING: Has the patient had 2 falls in the last year or 1 fall with injury or currently using an Ambulatory Assistive Device (Walker, Cane, Wheelchair, Crutches, etc.)? Inpatient: Screened on floor PATIENT GENDER DATA: Assigned female at . status: : No status: NO. PATIENT RELEVANT IMPLANT DATA REVIEWED: Yes PATIENT PRESENTS WITH AN IMPLANTABLE OR ATTACHED CUPOLA HOIST OPERATOR: No RADIOLOGY DEPARTMENT: MR; Exam(s) Completed: Head: Routine Brain. Lavender Administered: No PERIPHERAL IV DATA: Inpatient: see LDA documentation SIGNED BY: JUVE Gray September 22, 2024 6:33 PM Normal [facility] ALLIED HEALTH HNO ID: [id number] Author: LILLY MIDDLETON RT(R) Service: Radiology Author Type: Technologist Type: Allied Health Filed: 09/22/2024 16:32 Note Text: Radiology Service Progress Note DATE OF SERVICE: September 22, 2024 TIME: 4:31 PM PATIENT IDENTITY VERIFICATION COMPLETED USING TWO (2) STANDARD IDENTIFIERS: Name and Date of confirmed by identification band. FALL SCREENING: Has the patient had 2 falls in the last year or 1 fall with injury or currently using an Ambulatory Assistive Device (Walker, Cane, Wheelchair, Crutches, etc.)? Inpatient: Screened on floor PATIENT GENDER DATA: Assigned female at . status: : No status: NO. PATIENT RELEVANT IMPLANT DATA REVIEWED: Not Applicable PATIENT PRESENTS WITH AN IMPLANTABLE OR ATTACHED CUPOLA HOIST OPERATOR: No ALLERGIES: Reviewed and unchanged CONTRAST ALLERGY: NO. EXAM: CT -CONTRAST INDUCED NEPHROPATHY RISK FACTORS: Patient age > 60 years CREATININE: Creatinine Date Value Ref Range Status 09/22/2024 0.90 0.58 - 0.96 mg/dL Final 02/01/2024 0.93 0.58 - 0.96 mg/dL Final 06/14/2023 0.94 0.58 - 0.96 mg/dL Final Estimated Glomerular Filtration Rate Date Value Ref Range Status 09/22/2024 70 >=60 mL/min/1.73m? Final Comment: Estimated Glomerular Filtration Rate (eGFR) is calculated using the 2020 CKD-EPI creatinine equation. This equation utilizes serum creatinine, sex, and age as parameters. The creatinine assay has traceable calibration to isotope dilution-mass spectrometry. Refer to KDIGO guidelines for clinical interpretation. In patients with unstable renal function, e.g. those with acute kidney injury, the eGFR may not accurately reflect actual GFR. eGFR- Date Value Ref Range Status 11/20/2019 49 Final Comment: eGFR >= 60 Indicates normal kidney function. * eGFR IS AN ESTIMATE * (AFR CLIFF = ) (non-AFR AM = NON-) MDRD calculation used in the eGFR should not be used to dose medications. For further limitations of the eGFR please refer to the Physician Website or the National Kidney Disease Education Program website (www.nkdep.nih.gov). P.O.C.T. RESULTS: N/A September 22, 2024 TREATMENT: N/A PERIPHERAL IV DATA: Inpatient - refer to LDA documentation RADIOLOGY DEPARTMENT: CT; Exam(s) Completed: Brain , CTA Brain , and CTA Neck SIGNATURE: RT Inder(R) PATIENT NAME: Bella Morillo DATE: September 22, 2024 TIME: 4:31 PM Normal [facility] ANES POSTPROC EVALon 025 ANES POSTPROC EVAL HNO ID: [id number] Author: AXEL MONTAGUE MD Service: Anesthesiology Author Type: Physician Type: Anesthesia Postprocedure Evaluation Filed: 09/22/2024 17:15 Note Text: POST ANESTHESIA EVALUATION NOTE : 1955 Procedure Summary Date: 09/22/24 Room / Location: [facility] / [place] [facility] Anesthesia Start: 1231 Anesthesia Stop: 1506 Procedures: COMPRE EP EVAL ABLTJ ATR FIB PULM VEIN ISOLATION ECHOCARDIOGRAM TRANSESOPHOGEAL, REAL TIME W/IMAGE DOCUMENT (2D) Diagnosis: Paroxysmal atrial fibrillation (HCC) (Paroxysmal atrial fibrillation (HCC) [I48.0]) Surgeons: Chi Zamora MD Responsible Provider: Axel Montague MD Anesthesia Type: general ASA Status: 3 Anesthesia Type: general Airway Type: ETT Last Vitals Vitals Value Taken Time BP 149/76 09/22/24 1710 Temp 09/22/24 1711 Pulse 74 09/22/24 1710 Resp 18 09/22/24 1710 SpO2 94 % 09/22/24 1710 Vitals shown include unfiled device data. Post Anesthesia Patient Status Patient Evaluation: ICU. Anticipated Disposition: ICU unplanned admission. Neurological Status: lethargic. Pulmonary Status: breathing comfortably on supplemental oxygen Airway Control: returned to baseline unsupported. Cardiovascular Status: stable. Pain Management: clinically adequate Postoperative Hydration: acceptable. Intraoperative Events: no significant anesthesia events Post Operative Nausea/Vomiting Status: no significant post operative nausea or vomiting Recommendation: continue current plan of care and further care per PACU/ICU/floor team. Other Remarks: I was called after patient arrived in pacu and the nurses had concerns the patient was not arouseable No reaction to painful stimuli, pupils equal and reactive, eye movement, pt resists manual opening of her lids, Abg normal, bs normal, vss Narcn given and flumazinil with no changes Stroke team eval with head CT- normal Taken to NSICU for monitoring - spoke with Dr Sepulveda regarding case I did call the son to discuss the situation and told him we would keep him updated. Anesthesia Observations No Documentation SIGNATURE: Axel Montague MD PATIENT NAME: Bella Morillo DATE: September 22, 2024 TIME: 5:11 PM CSN: [id number] Normal [facility] ANES PRE-OPon 09-22-2024 ANES PRE-OP HNO ID: [id number] Author: AXEL MONTAGUE MD Service: Anesthesiology Author Type: Physician Type: Anesthesia Preprocedure Evaluation Filed: 09/22/2024 12:56 Note Text: ANESTHESIOLOGY DAY OF SURGERY NOTE : 1955 Procedure Information Anesthesia Start Date/Time: 09/22/24 1231 Procedures: COMPRE EP EVAL ABLTJ ATR FIB PULM VEIN ISOLATION - HANDP morning of possible BRYAN if in AF on arrival ECHOCARDIOGRAM TRANSESOPHOGEAL, REAL TIME W/IMAGE DOCUMENT (2D) Location: [facility] Surgeons: Chi Zamora MD Estimated body mass index is 24.56 kg/m? as calculated from the following: Height as of 07/20/24: 170.2 cm (5' 7). Weight as of this encounter: 71.1 kg (156 lb 12.8 oz). 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 Tracheostomy tube not present Mallampati: II. TM distance: >3 FB. Neck ROM: full ROM without neurological symptoms. Mouth opening: adequate. Short neck: no. Thick neck: no DENTAL Dental findings: teeth intact. II - ANESTHESIA PLAN ASA Score: 3 Anesthetic Plan: general Airway type: ETT The patient is not a current smoker. NPO Status: adequate Beta Herb Monitoring Plan Monitoring plan: standard ASA. Post Procedure Analgesic Plan Postoperative analgesic plan: multimodal analgesia. Informed Consent Anesthetic risks, benefits, alternatives, personnel and consent discussed: yes. Patient / Responsible Libertarian agrees to proceed: yes Patient / Surrogate agrees to blood products: blood products not planned Potential Anesthesia issues that may suggest increased risk of complications or contraindication to planned procedure: none. Vitals Value Taken Time BP 133/71 09/22/24 1104 Pulse Resp 16 09/22/24 1104 Temp 36.1 ?C (97 ?F) 09/22/24 1104 SpO2 98 % 09/22/24 1104 No current facility-administered medications on file as of 09/22/2024. Outpatient Medications as of 09/22/2024 Medication Sig metoprolol tartrate, short acting, (LOPRESSOR) 25 mg tablet TAKE 1 TABLET BY MOUTH TWICE A DAY Propafenone HCl (RYTHMOL) 225 mg tablet TAKE 1 TABLET EVERY 8 HOURS liothyronine (CYTOMEL) 25 mcg tablet Take 25 mcg by mouth once daily. liothyronine (CYTOMEL) 5 mcg tablet Take 1 tablet by mouth twice daily. levothyroxine (SYNTHROID) 112 mcg tablet Take 1 tablet by mouth once daily. HYDROcodone-acetaminophen (NORCO) 5-325 mg per tablet Take 1 tablet by mouth every 6 hours as needed. TAKE 1 TABLET BY MOUTH EVERY 12 HOURS NEEDED FOR PAIN calcitriol (ROCALTROL) 0.25 mcg capsule TAKE 1 PILL BY MOUTH WEDNESDAY, WEDNESDAY, WEDNESDAY cephALEXin (KEFLEX) 250 mg capsule Take 250 mg by mouth two times a day. aspirin, enteric coated (ASPIRIN, ENTERIC COATED) 81 mg EC tablet Take 81 mg by mouth once daily. inulin (FIBER GUMMIES) 2 gram chew Take 1 Each by mouth as needed. pantoprazole DR (PROTONIX) 40 mg tablet Take 40 mg by mouth once daily. vit A/vit C/vit E/zinc/copper (ICAPS AREDS ORAL) Take 1 tablet by mouth two times a day. cholecalciferol, Vitamin D3, (VITAMIN D3) 1,250 mcg (50,000 unit) cap capsule Take 50,000 Units by mouth once every month. ibuprofen-acetaminophen (ADVIL DUAL ACTION) 125-250 mg tab Take 2 tablets by mouth twice daily as needed. (Patient not taking: Reported on 05/08/2024) EPINEPHrine (EPIPEN) 0.3 mg/0.3 mL auto-injector Inject 0.3 mg intramuscularly as needed. multivitamin tablet Take 1 tablet by mouth once daily. I have interviewed and examined the patient. I have reviewed the medical record and/or the pre-anesthesia evaluation, pertinent labs, and test results. This contains updated information obtained within 48 hours of Surgery/Procedure. SIGNATURE: Axel Montague MD PATIENT NAME: Bella Morillo DATE: September 22, 2024 TIME: 12:55 PM CSN: [id number] Normal [facility] ARTERIAL BLOOD GASESon 09-22 Base deficit (BldA) [Moles/Vol] -1 mmol/L Normal -2-0 [facility] Comment on above: Order Comment: Speci men Type: ARTERIAL BLOOD SPECIMENOrdering Facility: [facility] Address: [address] [place] [address] Performed By: #### A LLBG ####[facility] LABORATORYCLIA [id number] [address] STATES [facility] Body temperature 98.6 [degF] Normal [facility] Comment on above: Order Comment: Speci men Type: ARTERIAL BLOOD SPECIMENOrdering Facility: [facility] Address: [address] [place] [address] Performed By: #### A LLBG ####[facility] LABORATORYCLIA [id number] [address] [place] Calcium.ionized (BldV) [Mass/Vol] 1.29 mmol/L Normal 1.08-1.30 [facility] Comment on above: Order Comment: Speci men Type: ARTERIAL BLOOD SPECIMENOrdering Facility: [facility] Address: [address] [place] [address] Performed By: #### A LLBG ####[facility] LABORATORYCLIA [id number] [address] Calcium.ionized adjusted to pH 7.4 (BldA) [Moles/Vol] 1.25 mmol/L Normal 1.08-1.30 [facility] Comment on above: Order Comment: Speci men Type: ARTERIAL BLOOD SPECIMENOrdering Facility: [facility] Address: [address] [place] [address] Performed By: #### A LLBG ####[facility] LABORATORYCLIA [id number] [address] OF [place] Carboxyhemoglobin (BldA) [Mass fraction] 2.2 % High 0.0-2.0 [facility] Comment on above: Order Comment: Speci men Type: ARTERIAL BLOOD SPECIMENOrdering Facility: [facility] Address: [address] [place] [address] Result Comment: Carb oxyhemoglobin Reference Range for Smokers: 2.0-8.0% Performed By: #### A LLBG ####[facility] LABORATORYCLIA [id number] [address] [place] Chloride [Moles/Vol] 105 mmol/L Normal 97-105 [facility] Comment on above: Order Comment: Speci men Type: ARTERIAL BLOOD SPECIMENOrdering Facility: [facility] Address: [address] [place] [address] Performed By: #### A LLBG ####[facility] LABORATORYCLIA [id number] [address] OF [place] CO2 (Bld) [Partial pressure] 46 mm Hg Normal 36-46 [facility] Comment on above: Order Comment: Speci men Type: ARTERIAL BLOOD SPECIMENOrdering Facility: [facility] Address: [address] [place] [address] Performed By: #### A LLBG ####[facility] LABORATORYCLIA [id number] [address] [place] Glucose [Mass/Vol] 104 mg/dL Normal 60-105 [facility] Comment on above: Order Comment: Speci men Type: ARTERIAL BLOOD SPECIMENOrdering Facility: [facility] Address: [address] [place] [address] Performed By: #### A LLBG ####[facility] LABORATORYCLIA [id number] [address] [place] HCO3 (Bld) [Moles/Vol] 24 mmol/L Normal 22-26 [facility] Comment on above: Order Comment: Speci men Type: ARTERIAL BLOOD SPECIMENOrdering Facility: [facility] Address: [address] [place] [address] Performed By: #### A LLBG ####[facility] LABORATORYCLIA [id number] [address] [place] Hematocrit (Bld) [Volume fraction] 35.2 % Low 36.0-46.0 [facility] Comment on above: Order Comment: Speci men Type: ARTERIAL BLOOD SPECIMENOrdering Facility: [facility] Address: [address] [place] [address] Performed By: #### A LLBG ####[facility] LABORATORYCLIA [id number] [address] [place] Hemoglobin (Bld) [Mass/Vol] 11.4 g/dL Low 11.5-15.5 [facility] Comment on above: Order Comment: Speci men Type: ARTERIAL BLOOD SPECIMENOrdering Facility: [facility] Address: [address] [place] [address] Performed By: #### A LLBG ####[facility] LABORATORYCLIA [id number] [address] [place] Lactate [Moles/Vol] 0.6 mmol/L Normal 0.5-2.2 [facility] Comment on above: Order Comment: Speci men Type: ARTERIAL BLOOD SPECIMENOrdering Facility: [facility] Address: [address] [place] [address] Performed By: #### A LLBG ####[facility] LABORATORYCLIA [id number] [address] [place] LITERS 2 Liters/min Normal [facility] Comment on above: Order Comment: Speci men Type: ARTERIAL BLOOD SPECIMENOrdering Facility: [facility] Address: [address] [place] [address] Performed By: #### A LLBG ####[facility] LABORATORYCLIA [id number] [address] [place] Methemoglobin (Bld) [Mass fraction] 1.0 % Normal 0.0-1.5 [facility] Comment on above: Order Comment: Speci men Type: ARTERIAL BLOOD SPECIMENOrdering Facility: [facility] Address: [address] [place] [address] Performed By: #### A LLBG ####[facility] LABORATORYCLIA [id number] [address] [place] O2 THERAPY NC = Nasal Cannula Normal [facility] Comment on above: Order Comment: Speci men Type: ARTERIAL BLOOD SPECIMENOrdering Facility: [facility] Address: [address] [place] [address] Performed By: #### A LLBG ####[facility] LABORATORYCLIA [id number] [address] [place] Oxygen (Bld) [Partial pressure] 78 mm Hg Low 85-95 [facility] Comment on above: Order Comment: Speci men Type: ARTERIAL BLOOD SPECIMENOrdering Facility: [facility] Address: [address] [place] [address] Performed By: #### A LLBG ####[facility] LABORATORYCLIA [id number] [address] [place] Oxyhemoglobin (BldA) [Mass fraction] 92 % Low 95-98 [facility] Comment on above: Order Comment: Speci men Type: ARTERIAL BLOOD SPECIMENOrdering Facility: [facility] Address: [address] [place] [address] Performed By: #### A LLBG ####[facility] LABORATORYCLIA [id number] [place] [address] [place] pH (Bld) 7.34 [pH] Low 7.35-7.45 [facility] Comment on above: Order Comment: Speci men Type: ARTERIAL BLOOD SPECIMENOrdering Facility: [facility] Address: [address] [place] [address] Performed By: #### A LLBG ####[facility] LABORATORYCLIA [id number] [place] [address] [place] Potassium [Moles/Vol] 4.3 mmol/L Normal 3.5-5.0 [facility] Comment on above: Order Comment: Speci men Type: ARTERIAL BLOOD SPECIMENOrdering Facility: [facility] Address: [address] [place] [address] Performed By: #### A LLBG ####[facility] LABORATORYCLIA [id number] [place] [address] [place] Sodium [Moles/Vol] 138 mmol/L Normal 136-144 [facility] Comment on above: Order Comment: Speci men Type: ARTERIAL BLOOD SPECIMENOrdering Facility: [facility] Address: [address] [place] [address] Performed By: #### A LLBG ####[facility] LABORATORYCLIA [id number] [place] [address] [place] Basic metabolic 2000 panelon 09-22-2024 Anion gap [Moles/Vol] 11 mmol/L Normal 8-15 [facility] Comment on above: Order Comment: Speci men Type: BLOOD SPECIMENOrdering Facility: [facility] Address: [address] [place] [address] Performed By: #### 1 9123-9, 27710-24, 45790-9 ####[facility] LABORATORYCLIA [id number] [place] [address] [place] Calcium [Mass/Vol] 9.1 mg/dL Normal 8.5-10.2 [facility] Comment on above: Order Comment: Speci men Type: BLOOD SPECIMENOrdering Facility: [facility] Address: [address] [place] [address] Performed By: #### 1 9123-9, 27710-24, 20879-5 ####[facility] LABORATORYCLIA [id number] [place] [address] [place] Chloride [Moles/Vol] 103 mmol/L Normal 98-107 [facility] Comment on above: Order Comment: Speci men Type: BLOOD SPECIMENOrdering Facility: [facility] Address: [address] [place] [address] Performed By: #### 1 9123-9, 2776-04, 25873-3 ####[facility] LABORATORYCLIA [id number] [place] [id number] [place] CO2 [Moles/Vol] 24 mmol/L Normal 22-30 [facility] Comment on above: Order Comment: Speci men Type: BLOOD SPECIMENOrdering Facility: [facility] Address: [address] [place] [address] Performed By: #### 1 9123-9, 2771, 86636-0 ####[facility] [id number] [place] [address] [place] Creatinine [Mass/Vol] 0.84 mg/dL Normal 0.58-0.96 [facility] Comment on above: Order Comment: Specjoshua boswell Type: BLOOD SPECIMENOrdering Facility: [facility] Address: [address] [place] [address] Performed By: #### 1 9123-9, 2777-, 68247-5 ####[facility] [id number] [place], [place] [address] [place] [address] Creatinine and Glomerular filtration rate.predicted panel (S/P/Bld) 76 mL/min/1.73m??? Normal >=60 [facility] Comment on above: Order Comment: [facility] Type: BLOOD SPECIMENOrdering Facility: [facility] Address: [address] [place] [address] Result Comment: Valarie mated Glomerular Filtration Rate (eGFR) is calculated using the 2020 CKD-EPI creatinine equation. This equation utilizes serum creatinine, sex, and age as parameters. The creatinine assay has traceable calibration to isotope dilution-mass spectrometry. Refer to KDIGO guidelines for clinical interpretation. In patients with unstable renal function, e.g. those with acute kidney injury, the eGFR may not accurately reflect actual GFR. Performed By: #### 1 9123-9, 2777-, 70997-6 ####[facility] [id number] [place] [id number] [place] Glucose [Mass/Vol] 102 mg/dL High 74-99 [facility] Comment on above: Order Comment: Speci andreia Type: BLOOD SPECIMENOrdering Facility: [facility] Address: [address] [place] [address] Result Comment: The [place] Diabetes Association (ADA) provides guidance for cutoff values for fasting glucose and random glucose. The ADA defines fasting as no caloric intake for at least 8 hours. Fasting plasma glucose results between 100 to 125 mg/dL indicate increased risk for diabetes (prediabetes). Fasting plasma glucose results greater than or equal to 126 mg/dL meet the criteria for diagnosis of diabetes. In the absence of unequivocal hyperglycemia, results should be confirmed by repeat testing. In a patient with classic symptoms of hyperglycemia or hyperglycemic crisis, random plasma glucose results greater than or equal to 200 mg/dL meet the criteria for diagnosis of diabetes. Reference: Standards of Medical Care in Diabetes 2016, [place] Diabetes Association. Diabetes Care. 2016.39(Suppl 1). Performed By: #### 1 9123-9, 2777-1, 25921-1 ####[facility] LABORATORYCLIA [id number] [place] [address] [place] Potassium [Moles/Vol] 4.2 mmol/L Normal 3.7-5.1 [facility] Comment on above: Order Comment: Speci men Type: BLOOD SPECIMENOrdering Facility: [facility] Address: [address] [place] [address] Performed By: #### 1 9123-9, 2777, 34589-6 ####[facility] LABORATORYCLIA [id number] [place] [address] [place] Sodium [Moles/Vol] 138 mmol/L Normal 136-144 [facility] Comment on above: Order Comment: Speci men Type: BLOOD SPECIMENOrdering Facility: [facility] Address: [address] [place] [address] Performed By: #### 1 9123-9, 27710-24, 92572-2 ####[facility] LABORATORYCLIA [id number] [place] [address] [place] Urea nitrogen [Mass/Vol] 17 mg/dL Normal 7-21 [facility] Comment on above: Order Comment: Speci men Type: BLOOD SPECIMENOrdering Facility: [facility] Address: [address] [place] [address] Performed By: #### 1 9123-9, 2777, 05150-3 ####[facility] LABORATORYCLIA [id number] [place] [address] [place] Anion gap [Moles/Vol] 9 mmol/L Normal 8-15 [facility] Comment on above: Order Comment: Speci men Type: BLOOD SPECIMENOrdering Facility: [facility] Address: [address] [place] [address] Performed By: #### 2 4321-2, 3015-3 ####[facility] LABORATORYCLIA [id number] [place] [address] [place] Calcium [Mass/Vol] 9.7 mg/dL Normal 8.5-10.2 [facility] Comment on above: Order Comment: Speci men Type: BLOOD SPECIMENOrdering Facility: [facility] Address: [address] [place] [address] Performed By: #### 2 1-2, 3015-3 ####[facility] LABORATORYCLIA [id number] [place] [address] [place] Chloride [Moles/Vol] 105 mmol/L Normal 98-107 [facility] Comment on above: Order Comment: Speci men Type: BLOOD SPECIMENOrdering Facility: [facility] Address: [address] [place] [address] Performed By: #### 2 4320-2, 3015-3 ####[facility] LABORATORYCLIA [id number] [place] [address] [place] CO2 [Moles/Vol] 29 mmol/L Normal 22-30 [facility] Comment on above: Order Comment: Speci men Type: BLOOD SPECIMENOrdering Facility: [facility] Address: [address] [place] [address] Performed By: #### 2 4320-2, 3015-3 ####[facility] LABORATORYCLIA [id number] [place] [address] [place] Creatinine [Mass/Vol] 0.90 mg/dL Normal 0.58-0.96 [facility] Comment on above: Order Comment: Speci men Type: BLOOD SPECIMENOrdering Facility: [facility] Address: [address] [place] [address] Performed By: #### 2 1-2, 3015-3 ####[facility] LABORATORYCLIA [id number] [place] [address] [place] Creatinine and Glomerular filtration rate.predicted panel (S/P/Bld) 70 mL/min/1.73m??? Normal >=60 [facility] Comment on above: Order Comment: Julieta boswell Type: BLOOD SPECIMENOrdering Facility: [facility] Address: [address] [place] [address] Result Comment: Valarie mated Glomerular Filtration Rate (eGFR) is calculated using the 2020 CKD-EPI creatinine equation. This equation utilizes serum creatinine, sex, and age as parameters. The creatinine assay has traceable calibration to isotope dilution-mass spectrometry. Refer to KDIGO guidelines for clinical interpretation. In patients with unstable renal function, e.g. those with acute kidney injury, the eGFR may not accurately reflect actual GFR. Performed By: #### 2 4321-2, 3016-3 ####[facility] LABORATORYCLIA [id number] [place] [address] [place] Glucose [Mass/Vol] 91 mg/dL Normal 74-99 [facility] Comment on above: Order Comment: Julieta boswell Type: BLOOD SPECIMENOrdering Facility: [facility] Address: [address] [place] [address] Result Comment: The [place] Diabetes Association (ADA) provides guidance for cutoff values for fasting glucose and random glucose. The ADA defines fasting as no caloric intake for at least 8 hours. Fasting plasma glucose results between 100 to 125 mg/dL indicate increased risk for diabetes (prediabetes). Fasting plasma glucose results greater than or equal to 126 mg/dL meet the criteria for diagnosis of diabetes. In the absence of unequivocal hyperglycemia, results should be confirmed by repeat testing. In a patient with classic symptoms of hyperglycemia or hyperglycemic crisis, random plasma glucose results greater than or equal to 200 mg/dL meet the criteria for diagnosis of diabetes. Reference: Standards of Medical Care in Diabetes 2016, [place] Diabetes Association. Diabetes Care. 2016.39(Suppl 1). Performed By: #### 2 4321-2, 3016-3 ####[facility] LABORATORYCLIA [id number] [place] [address] [place] Potassium [Moles/Vol] 4.3 mmol/L Normal 3.7-5.1 [facility] Comment on above: Order Comment: Speci men Type: BLOOD SPECIMENOrdering Facility: [facility] Address: [address] [place] [address] Performed By: #### 2 4321-2, 3016-3 ####[facility] LABORATORYCLIA [id number] [address] Sodium [Moles/Vol] 143 mmol/L Normal 136-144 [facility] Comment on above: Order Comment: Speci men Type: BLOOD SPECIMENOrdering Facility: [facility] Address: [address] [place] [address] Performed By: #### 2 4321-2, 6-3 ####[facility] LABORATORYCLIA [id number] [address] STATES OF [facility] Urea nitrogen [Mass/Vol] 20 mg/dL Normal 7-21 [facility] Comment on above: Order Comment: Speci men Type: BLOOD SPECIMENOrdering Facility: [facility] Address: [address] [place] [address] Performed By: #### 2 4321-2, 3015-3 ####[facility] LABORATORYCLIA [id number] [address] OF [facility] CBC panel Auto (Bld)on 09-22 Erythrocyte distribution width (RBC) [Ratio] 13.3 % Normal 11.5-15.0 [facility] Comment on above: Order Comment: Speci men Type: BLOOD SPECIMENOrdering Facility: [facility] Address: [address] [place] [address] Performed By: #### 5 8410-2 ####[facility] LABORATORYCLIA [id number] [address] Hematocrit (Bld) [Volume fraction] 33.9 % Low 36.0-46.0 [facility] Comment on above: Order Comment: Speci men Type: BLOOD SPECIMENOrdering Facility: [facility] Address: [address] [place] [address] Performed By: #### 5 8410-2 ####[facility] LABORATORYCLIA [id number] [address] Hemoglobin (Bld) [Mass/Vol] 11.2 g/dL Low 11.5-15.5 [facility] Comment on above: Order Comment: Speci men Type: BLOOD SPECIMENOrdering Facility: [facility] Address: [address] [place] [address] Performed By: #### 5 8410-2 ####[facility] LABORATORYCLIA [id number] [address] MCH (RBC) [Entitic mass] 30.4 pg Normal 26.0-34.0 [facility] Comment on above: Order Comment: Speci men Type: BLOOD SPECIMENOrdering Facility: [facility] Address: [address] [place] [address] Performed By: #### 5 8410-2 ####[facility] LABORATORYCLIA [id number] [address] MCHC (RBC) [Mass/Vol] 33.0 g/dL Normal 30.5-36.0 [facility] Comment on above: Order Comment: Speci men Type: BLOOD SPECIMENOrdering Facility: [facility] Address: [address] [place] [address] Performed By: #### 5 8410-2 ####[facility] LABORATORYCLIA [id number] [address] OF [facility] MCV (RBC) [Entitic vol] 91.9 fL Normal 80.0-100.0 [facility] Comment on above: Order Comment: Speci men Type: BLOOD SPECIMENOrdering Facility: [facility] Address: [address] [place] [address] Performed By: #### 5 8410-2 ####[facility] LABORATORYCLIA [id number] [address] Nucleated RBC (Bld) [#/Vol] 10*3/uL Normal <0.01 [facility] Comment on above: Order Comment: Speci men Type: BLOOD SPECIMENOrdering Facility: [facility] Address: [address] [place] [address] Performed By: #### 5 8410-2 ####[facility] LABORATORYCLIA [id number] [address] Platelet mean volume (Bld) [Entitic vol] 10.9 fL Normal 9.0-12.7 [facility] Comment on above: Order Comment: Speci men Type: BLOOD SPECIMENOrdering Facility: [facility] Address: [address] [place] [address] Performed By: #### 5 8410-2 ####[facility] LABORATORYCLIA [id number] [address] [place] Platelets (Bld) [#/Vol] 220 10*3/uL Normal 150-400 [facility] Comment on above: Order Comment: Speci men Type: BLOOD SPECIMENOrdering Facility: [facility] Address: [address] [place] [address] Performed By: #### 5 8410-2 ####[facility] LABORATORYCLIA [id number] [address] RBC (Bld) [#/Vol] 3.69 10*6/uL Low 3.90-5.20 [facility] Comment on above: Order Comment: Speci men Type: BLOOD SPECIMENOrdering Facility: [facility] Address: [address] [place] [address] Performed By: #### 5 8410-2 ####[facility] LABORATORYCLIA [id number] [address] [place] WBC (Bld) [#/Vol] 11.37 10*3/uL High 3.70-11.00 [facility] Comment on above: Order Comment: Speci men Type: BLOOD SPECIMENOrdering Facility: [facility] Address: [address] [place] [address] Performed By: #### 5 8410-2 ####[facility] LABORATORYCLIA [id number] [address] [place] Erythrocyte distribution width (RBC) [Ratio] 13.3 % Normal 11.5-15.0 [facility] Comment on above: Order Comment: Speci men Type: BLOOD SPECIMENOrdering Facility: [facility] Address: [address] [place] [address] Performed By: #### 5 8410-2 ####[facility] LABORATORYCLIA [id number] [address] OF [facility] Hematocrit (Bld) [Volume fraction] 37.8 % Normal 36.0-46.0 [facility] Comment on above: Order Comment: Speci men Type: BLOOD SPECIMENOrdering Facility: [facility] Address: [address] [place] [address] Performed By: #### 5 8410-2 ####[facility] LABORATORYCLIA [id number] [address] [place] Hemoglobin (Bld) [Mass/Vol] 12.3 g/dL Normal 11.5-15.5 [facility] Comment on above: Order Comment: Speci men Type: BLOOD SPECIMENOrdering Facility: [facility] Address: [address] [place] [address] Performed By: #### 5 8410-2 ####[facility] LABORATORYCLIA [id number] [address] [place] MCH (RBC) [Entitic mass] 29.8 pg Normal 26.0-34.0 [facility] Comment on above: Order Comment: Speci men Type: BLOOD SPECIMENOrdering Facility: [facility] Address: [address] [place] [address] Performed By: #### 5 8410-2 ####[facility] LABORATORYCLIA [id number] [address] [place] MCHC (RBC) [Mass/Vol] 32.5 g/dL Normal 30.5-36.0 [facility] Comment on above: Order Comment: Speci men Type: BLOOD SPECIMENOrdering Facility: [facility] Address: [address] [place] [address] Performed By: #### 5 8410-2 ####[facility] LABORATORYCLIA [id number] [address] [place] MCV (RBC) [Entitic vol] 91.5 fL Normal 80.0-100.0 [facility] Comment on above: Order Comment: Speci men Type: BLOOD SPECIMENOrdering Facility: [facility] Address: [address] [place] [address] Performed By: #### 5 8410-2 ####[facility] LABORATORYCLIA [id number] [address] OF [facility] Nucleated RBC (Bld) [#/Vol] 10*3/uL Normal <0.01 [facility] Comment on above: Order Comment: Speci men Type: BLOOD SPECIMENOrdering Facility: [facility] Address: [address] [place] [address] Performed By: #### 5 8410-2 ####[facility] LABORATORYCLIA [id number] [address] Platelet mean volume (Bld) [Entitic vol] 10.9 fL Normal 9.0-12.7 [facility] Comment on above: Order Comment: Speci men Type: BLOOD SPECIMENOrdering Facility: [facility] Address: [address] [place] [address] Performed By: #### 5 8410-2 ####[facility] LABORATORYCLIA [id number] [address] Platelets (Bld) [#/Vol] 241 10*3/uL Normal 150-400 [facility] Comment on above: Order Comment: Speci men Type: BLOOD SPECIMENOrdering Facility: [facility] Address: [address] [place] [address] Performed By: #### 5 8410-2 ####[facility] LABORATORYCLIA [id number] [address] [place] RBC (Bld) [#/Vol] 4.13 10*6/uL Normal 3.90-5.20 [facility] Comment on above: Order Comment: Speci men Type: BLOOD SPECIMENOrdering Facility: [facility] Address: [address] [place] [id number] Performed By: #### 5 8410-2 ####[facility] LABORATORYCLIA [id number] [place] [id number] [facility] WBC (Bld) [#/Vol] 6.68 10*3/uL Normal 3.70-11.00 [facility] Comment on above: Order Comment: Speci men Type: BLOOD SPECIMENOrdering Facility: [facility] Address: [address] [place] [id number] Performed By: #### 5 8410-2 ####[facility] LABORATORYCLIA [id number] [place] [address] [facility] CONSULTon 09-22-2024 CONSULT HNO ID: [id number] Author: FRANCISCO ESPITIA APRN.WAITER/WAITRESS [employer]RIST [employer] Service: Neurology ICU Author Type: Nurse Practitioner Type: Consults Filed: 09/22/2024 18:15 Note Text: Attestation signed by Grace Renae MD at 09/23/2024 2:19 PM Attending Note I have personally performed a face to face assessment of the patient and have reviewed the LILIA note. I performed a substantive portion of the visit including all aspects of the following. My espinoza findings include: Bella Morillo 69 year old female with AF (on Eliquis CREDIT ADMINISTRATION SPECIALIST) presented to [facility] on 09/22 for an elective atrial fibrillation ablation. Stroke team called on 09/22 @ 1605 for unresponsiveness. Per patient was able to hear things around her but unable to move or open her eyes. No clear focality. CTH ANDCTA and MRI brain unreamrkable. Exam today unremarkable, normal neurological exam, nihsss 0. Likley reaction to anesthesia, reports hx of similar reaction in the past, no signs of seizure activity. Other additions or changes: None Signature: Grace Renae MD Date: 09/23/2024 Time: 2:17 PM NEURO STROKE HANDP SERVICE DATE: 09/22/2024 SERVICE TIME: 1615 PCP: Sridhar Montero IV, DO REASON FOR STROKE EVALUATION: unresponsive episode Subjective HPI: 69 year old female with PMH significant for anemia, AF (on Eliquis CREDIT ADMINISTRATION SPECIALIST), hypothyroidism, macular degeneration, migraines, and PACs who presented to [facility] on 09/22 for an elective atrial fibrillation ablation. Stroke team called on 09/22 @ 1605 for unresponsiveness. Patient out of procedure and in PACU, not responsive to painful stimuli, not verbalizing. LKW 1218 on 09/22. Per report from anesthesia patient received fentanyl and midazolam for procedure. CT brain without acute process. CTA head/neck without evidence of LVO or hemodynamically significant stenosis. Patient remains minimally responsive. Brought to NSICU for EEG and close neuro monitoring. Pre-admission Was patient on antithrombotic agent prior to admission: Anticoagulant Was patient on lipid lowering agent prior to admission: No Pre-morbid mRS: Premorbid Modified Shannon Score: 0 - No symptoms at all PAST MEDICAL HISTORY Diagnosis Date Anemia Arthritis Atrial fibrillation (HCC) Atrophic vaginitis Dyspareunia in female Family history of breast cancer Family history of colon cancer offered Tasha Tenorio; pt needs to complete genetic counseling Family history of malignant melanoma Femur fracture (HCC) trip/fall from standing height High risk for hip fracture 05/2019 FRAX Hip 3% History of transfusion 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 Knee pain Macular degeneration Migraine with aura Osteopenia 2010 PAC (premature atrial contraction) Palpitations Pituitary disorder (HCC) prolactin elevation on reglan Postmenopausal osteoporosis 2014 Thyrotoxicosis without mention of goiter or other cause Uterine fibroid Vitamin D deficiency PAST SURGICAL HISTORY Procedure Laterality Date AFIB ABLATION/PULM VEIN ISOLATION 2005 pulmonary vein ablation for A fib AFIB ABLATION/PULM VEIN ISOLATION 2013 ARTHROTOMY W/MENISCUS REPAIR KNEE Left 1966 Open knee reconstruction ARTHRP KNE CONDYLEANDPLATU MEDIALANDLAT COMPARTMENTS Left x2 ARTHRP KNE CONDYLEANDPLATU MEDIALANDLAT COMPARTMENTS Left 11/08/2019 revision, Dr. Reyes COLONOSCOPY 2009 due in 5 years COLONOSCOPY 2020 wnl due in 3 years FINGER SURGERY HX Right trigger finger KNEE SURGERY HX Left x6 KNEE SURGERY HX Left 1997 LEG SURGERY HX femur fracture SKIN BIOPSY HX SPINE SURGERY HX 2012 TONSILLECTOMY HX TOTAL KNEE REPLACEMENT Right 2020 Social History Tobacco Use Smoking status: Former Current packs/day: 0.00 Average packs/day: 0.5 packs/day for 10.0 years (5.0 ttl pk-yrs) Types: Cigarettes Start date: 08/17/1977 Quit date: 08/18/1987 Years since quittin.1 Smokeless tobacco: Never Vaping Use Vaping status: Never Used Substance Use Topics Alcohol use: Yes Alcohol/week: 3.0 - 4.0 standard drinks of alcohol Types: 3 - 4 Glasses of Wine (5oz) per week Comment: socially Drug use: Yes Frequency: 1.0 times per week Types: Marijuana FAMILY HISTORY Problem Relation Age of Onset other (stomach cancer) Mother Colon Cancer Mother Hypothyroidism Mother Melanoma Mother 76 Arrythmias Mother Prostate Cancer Father Coronary Artery Disease Father Hypertension Father Hyperlipidemia Father Heart disease Father cardiac murmur Diabetes Maternal Grandmother Heart disease Paternal Grandmother quadruple bypass and of a heart attack at age 75 Breast Cancer Maternal Aunt 42 Lung Cancer Maternal Aunt Graves Disease Other ALLERGIES Allergen Reactions Bees Anaphylaxis Codeine Intolerance migraines Adhesive Tape (Marianne* R (more content not included)... Normal [facility] CT BRAIN ATTACK WO IVCONon 0 09-22-2024 CT BRAIN ATTACK WO IVCON * * *Final Report* * * DATE OF EXAM: Sep 22 2024 4:31PM [facility] 0502 - CT BRAIN ATTACK WO IVCON / PROCEDURE REASON: Focal neuro deficit, new, fixed, or worsening, < 4.5 hours, stroke suspected * * * * Physician Interpretation * * * * EXAMINATION: CT BRAIN ATTACK WO IVCON CLINICAL HISTORY: Focal neuro deficit, stroke suspected. Brain attack. TECHNIQUE: Routine CT of the brain without IV contrast. MQ: CTBA_4 CT Radiation dose: Integrated CT Dose-Length Product (DLP) for this visit = 855 mGy*cm CT Dose Reduction Employed: Iterative recon COMPARISON: None. RESULT: Acute ischemic change: None. ASPECT Score = 10 Hemorrhage: No evidence of acute intracranial hemorrhage. ECASS hemorrhagic transformation score: Not Applicable Mass Lesion / Mass Effect: There is no evidence of an intracranial mass or extraaxial fluid collection. No significant mass effect. Chronic change: None apparent. Parenchyma: There is no significant volume loss. The brain parenchyma is otherwise within normal limits for age. Ventricles: Normal caliber and morphology. Other: The visualized calvarium, skull base, orbits and extracranial soft tissues are normal. Localizer images: Unremarkable. IMPRESSION: 1. No evidence of acute intracranial process. CRITICAL TEST/RESULTS: Notification initiated at 09/22/2024 4:37 PM. Communicated with Francisco Espitia CNP on 09/22/2024 4:37 PM . CR_1 Business Account Specialist: ANGIE Transcribe Date/Time: Sep 22 2024 4:31P Dictated by : MILAN BOSE MD This examination was interpreted and the report reviewed and electronically signed by: MILAN BOSE MD on Sep 22 2024 4:38PM EST [id number] [id number]!! Invalid Interpretation Code [facility] CTA HEAD W IVCONon 5 CTA HEAD W IVCON * * *Final Report* * * DATE OF EXAM: Sep 22 2024 4:31PM [facility] 0022 - CTA HEAD W IVCON / PROCEDURE REASON: Focal neuro deficit, new, fixed, or worsening, < 4.5 hours, stroke suspected * * * * Physician Interpretation * * * * EXAMINATION: CTA HEAD WITH IV CONTRAST, CTA NECK WITH IV CONTRAST HISTORY: TECHNIQUE: Spiral high resolution axial images were obtained through the head, neck and superior mediastinum following bolus administration of intravenous contrast for CT angiography. 3D maximum intensity projection images were created, reviewed and archived . MQ: CTAHN_4 Contrast: 100 mL Omnipaque [address] Radiation dose: Integrated Dose-Length Product (DLP) for this visit = 505 mGy*cm. CT Dose Reduction Employed: Automated exposure control(AEC) and iterative recon COMPARISON: None. RESULT: BRAIN: Evaluation of the individual slices of the CTA demonstrates no evidence of an acute stroke. ASPECT Score = 10 Hemorrhage: No clear evidence of acute intracranial hemorrhage within the constraints of this contrast enhanced acquisition. ECASS hemorrhagic transformation score: Not Applicable NECK: Soft tissues: The soft tissue planes are maintained throughout. No evidence of a soft tissue mass in the neck or superior mediastinum. No significant lymphadenopathy is seen. Spine: Alignment is within normal limits. Mild multilevel degenerative changes are present.. At least mild central canal stenosis at the C5 level due to ossification of posterior longitudinal ligament. Lung apices: The visualized lung apices are clear. CT ARTERIOGRAM: Extracranial Circulation: Aortic Arch: There is a normal branching pattern from the aortic arch. There is no significant stenosis in the proximal brachiocephalic vessels. Carotid Stenosis: Right Common: No significant stenosis. Right Internal Carotid Plaque: No significant plaque formation. Right Internal Carotid Stenosis (% by NASCET Criteria): 0% Left Common: No significant stenosis. Left Internal Carotid Plaque: Minimal atherosclerotic plaque formation. Left Internal Carotid Stenosis (% by NASCET Criteria): 0% Cervical Vertebral Arteries: Patency: Bilateral Dominance: Right vertebral artery is dominant. Left vertebral artery is hypoplastic throughout its course. Intracranial Circulation: Distal left vertebral artery is hypoplastic, especially distal to the posterior inferior cerebellar artery origin which is a normal variation. There is origin of the bilateral posterior cerebral arteries with hypoplastic bilateral P1 segments of the posterior cerebral arteries. There is mild calcific plaque involving the bilateral cavernous/supraclinoid internal carotid arteries without significant stenosis. The CTA of the head is otherwise unremarkable. There is no evidence of significant stenosis, definite aneurysm, or other vascular abnormality. The distal internal carotid, distal vertebral, basilar, and proximal cerebral arteries are patent. The bilateral posterior superior cerebellar arteries are patent. Software Quality Assurance Analyst (topogram) images: Unremarkable. IMPRESSION: 1. No evidence of large vessel occlusion or significant stenosis in the head or neck. 2. 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 3. Mild atherosclerotic disease of the intracranial and extracranial carotid artery systems without significant/measurable stenosis. 4. Mild multilevel degenerative changes of the cervical spine. At least mild central canal stenosis at the C5 level due to ossification of posterior longitudinal ligament. Arterial blood flow was measured to detect acute large vessel occlusion by computer aided detection software: None. Concordance between software and imaging review: Concordant. Business Account Specialist: ANGIE Transcribe Date/Time: Sep 22 2024 4:39P Dictated by : MILAN BOSE MD This examination was interpreted and the report reviewed and electronically signed by: MILAN BOSE MD on Sep 22 2024 4:48PM EST [id number] Normal [facility] CTA NECK W IVCONon 5 CTA NECK W IVCON * * *Final Report* * * DATE OF EXAM: Sep 22 2024 4:31PM [facility] 0024 - CTA NECK W IVCON / PROCEDURE REASON: Focal neuro deficit, new, fixed, or worsening, < 4.5 hours, stroke suspected * * * * Physician Interpretation * * * * EXAMINATION: CTA HEAD WITH IV CONTRAST, CTA NECK WITH IV CONTRAST HISTORY: TECHNIQUE: Spiral high resolution axial images were obtained through the head, neck and superior mediastinum following bolus administration of intravenous contrast for CT angiography. 3D maximum intensity projection images were created, reviewed and archived . MQ: CTAHN_4 Contrast: 100 mL Omnipaque [address] Radiation dose: Integrated Dose-Length Product (DLP) for this visit = 505 mGy*cm. CT Dose Reduction Employed: Automated exposure control(AEC) and iterative recon COMPARISON: None. RESULT: BRAIN: Evaluation of the individual slices of the CTA demonstrates no evidence of an acute stroke. ASPECT Score = 10 Hemorrhage: No clear evidence of acute intracranial hemorrhage within the constraints of this contrast enhanced acquisition. ECASS hemorrhagic transformation score: Not Applicable NECK: Soft tissues: The soft tissue planes are maintained throughout. No evidence of a soft tissue mass in the neck or superior mediastinum. No significant lymphadenopathy is seen. Spine: Alignment is within normal limits. Mild multilevel degenerative changes are present.. At least mild central canal stenosis at the C5 level due to ossification of posterior longitudinal ligament. Lung apices: The visualized lung apices are clear. CT ARTERIOGRAM: Extracranial Circulation: Aortic Arch: There is a normal branching pattern from the aortic arch. There is no significant stenosis in the proximal brachiocephalic vessels. Carotid Stenosis: Right Common: No significant stenosis. Right Internal Carotid Plaque: No significant plaque formation. Right Internal Carotid Stenosis (% by NASCET Criteria): 0% Left Common: No significant stenosis. Left Internal Carotid Plaque: Minimal atherosclerotic plaque formation. Left Internal Carotid Stenosis (% by NASCET Criteria): 0% Cervical Vertebral Arteries: Patency: Bilateral Dominance: Right vertebral artery is dominant. Left vertebral artery is hypoplastic throughout its course. Intracranial Circulation: Distal left vertebral artery is hypoplastic, especially distal to the posterior inferior cerebellar artery origin which is a normal variation. There is origin of the bilateral posterior cerebral arteries with hypoplastic bilateral P1 segments of the posterior cerebral arteries. There is mild calcific plaque involving the bilateral cavernous/supraclinoid internal carotid arteries without significant stenosis. The CTA of the head is otherwise unremarkable. There is no evidence of significant stenosis, definite aneurysm, or other vascular abnormality. The distal internal carotid, distal vertebral, basilar, and proximal cerebral arteries are patent. The bilateral posterior superior cerebellar arteries are patent. Software Quality Assurance Analyst (topogram) images: Unremarkable. IMPRESSION: 1. No evidence of large vessel occlusion or significant stenosis in the head or neck. 2. 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 3. Mild atherosclerotic disease of the intracranial and extracranial carotid artery systems without significant/measurable stenosis. 4. Mild multilevel degenerative changes of the cervical spine. At least mild central canal stenosis at the C5 level due to ossification of posterior longitudinal ligament. Arterial blood flow was measured to detect acute large vessel occlusion by computer aided detection software: None. Concordance between software and imaging review: Concordant. Business Account Specialist: ANGIE Transcribe Date/Time: Sep 22 2024 4:39P Dictated by : MILAN BOSE MD This examination was interpreted and the report reviewed and electronically signed by: MILAN BOSE MD on Sep 22 2024 4:48PM EST [id number] Normal [facility] HIGH SENSITIVITY TROPONIN To n 09-22-2024 Troponin T.cardiac High sensitivity method [Mass/Vol] 924 ng/L High <12 [facility] Comment on above: Order Comment: Speci men Type: BLOOD SPECIMENOrdering Facility: [facility] Address: [address] [place] [address] Performed By: #### H STNT ####[facility] LABORATORYCLIA [id number] [place] [id number] [place] HISTORY PHYSICALon HISTORY PHYSICAL HNO ID: [id number] Author: FRANCISCO WELCH APRN.WAITER/WAITRESS TOURIST CLASS Service: Neurology ICU Author Type: Nurse Practitioner Type: H&P Filed: 09/22/2024 18:08 Note Text: Attestation signed by Rossana Sepulveda DO, PhD at 09/25/2024 10:00 AM (Updated) .HE NEURO ICU MANAGEMENT OF THIS PATIENT WAS DISCUSSED WITH THE NICU TEAM I have reviewed the progress note obtained and documented by the advanced practice provider . I have personally seen and examined the patient and discussed their management with the LILIA. I reviewed the LILIA note and agree with the documented findings and plan of care. I have repeated the examination and confirm the findings except as documented. PATIENT PROBLEMS I REVIEWED, REVISED AND/OR INITIATED: The care of this patient required my full attention and direct personal management of: Principal Problem: Atrial fibrillation (HCC) Active Problems: Hypothyroidism Resolved Problems: Unresponsive episode Acute encephalopathy Leukocytosis Complication of anesthesia ==== STAFF COORDINATION OF CRITICAL CARE [facility] Staff Physician note of personal involvement in Care The patient is critically ill because of imminent risk of and continues to require intensive support and observation. This patient has a high probability of sudden, clinically significant deterioration, which requires the highest level of physician preparedness to intervene urgently. I managed/supervized life or organ supporting interventions that required frequent physician assessment. I devoted my full attention to the direct care of this patient for the amount of time indicated below. Time I spent with family or surrogate(s) is included only if the patient was incapable of providing the necessary information or participating in medical decision making. Time devoted to teaching or to any procedures I billed separately is not included. CRITICAL CARE: I personally spent 60 minutes of critical care time involved in the care of this patient. ==== PLAN, IMPRESSION AND ACTION(S) TAKEN Request for NICU as per stroke team following stroke alert 69 pmhx anemia Afib ( on eliquis) Hypothyroid mac degeneration migraines Present to ICU for encephalopathy post atrial ablation. Procedure was unremarkable per cards, received nitro intra op, reversal and NICAN x2 post opp due to unresponsiveness. No response to painful stimuli. Stroke alert initiated CTA/CTH without acute findings. On arrival the patient had flittering eye lids, resisted eye opening with gaze left then right or upward. Non verbalization but did say ouch with iv use and withdraw hand, or with flexion of left leg. Pupils equal and reactive without facial asymmetry, negative gag GCS 8 Stat MRI without acute findings. Patient son presented to bedside, she visibly cried and smiled with him. Patent was then 5/5 Aox5 and requested avoiding EEG . Pt at her normal baseline and drinking water. Patient reports she could hear all the activity around her and recalls the conversations but felt she could not respond like she was paralyzed . The patient did receive reversal and was able to move limbs intermittently, equal and non labored chest rise with respiration. Dc BEM MRI Brain without stroke of abnormality Metabolic disturbance corrected DC ECHO unless per cards- stroke work up CV: trop elevated suspect post ablation will trend as per cards RSP : RA Renal : labs appropriate GI: reg diet add TSH, T3 T4 EnDO: no concern Hem: Eliquis post ablation as per cards metop ongoing on eliquis will hold [facility] [place] ambulation and dc to home Please see the documented [id number] plan in the updated problem list. Plan of care discussed with: . Rossana Sepulveda DO, PhD Staff, Neurointensive Care [facility] Date of Service: 09/23/2024 Time of Service: 9:32 AM This is an electronically created document. If printed, please do not remove from the chart or modify printed copy. SERVICE DATE: 09/22/2024 SERVICE TIME: 6:08 PM NEUROLOGICAL INTENSIVE CARE UNIT HISTORY AND PHYSICAL (STROKE CARE PATH) REASON FOR STROKE EVALUATION: Altered Mentation REASON FOR NEUROLOGICAL ICU ADMISSION: Close neuro monitoring, unresponsive Stroke Mechanism: METRICS: Initial NIHSS Score: 30 [place] Coma Scale Totals (Calculated): 7 Date Patient Last Known Well: 09/22/24 Time Patient Last Known Well: 1218 Pre-admission: Was patient on antithrombotic agent prior to admission: Anticoagulant Premorbid Modified [place] Score: 0=0 - No symptoms at all Baseline Functional Status (i.e. ADL's, Ambulatory Status, Cognitive Issues): Independent Subjective HPI: 69 year old female with PMH significant for anemia, AF (on Eliquis CREDIT ADMINISTRATION SPECIALIST), hypothyroidism, macular degeneration, molina (more content not included)... Normal [facility] HISTORY PHYSICAL HNO ID: [id number] Author: CHI ZAMORA MD Service: Electrophysiology Author Type: Physician Type: H&P Filed: 09/22/2024 14:50 Note Text: UPDATED HISTORY AND PHYSICAL EXAMINATION SERVICE DATE: 09/22/2024 SERVICE TIME: 1200 PHYSICAL EXAM MUST BE COMPLETED ON ADMISSION The History and Physical (completed in the past 30 days) has been reviewed and the patient has been examined. The contents accurately reflect the patient's condition with the following additions or revisions since the HANDP was completed. Examination indicates no changes. No acute distress, alert and oriented x3, comfortable, easy work of breathing, face symmetric, moving all extremities, skin warm and dry. Provisional Diagnosis/Treatment Plan: Procedure(s) (LRB): COMPRE EP EVAL ABLTJ ATR FIB PULM VEIN ISOLATION (N/A) ECHOCARDIOGRAM TRANSESOPHOGEAL, REAL TIME W/IMAGE DOCUMENT (2D) (N/A) This HANDP can be found in the Electronic Medical Record. SIGNATURE: Chi Zamora MD PATIENT NAME: Bella Morillo DATE: September 22, 2024 TIME: 2:49 PM Normal [facility] MRI BRAIN WO IVCONon 025 MRI BRAIN WO IVCON * * *Final Report* * * DATE OF EXAM: Sep 22 2024 6:55PM [facility] 0294 - MRI BRAIN WO IVCON / PROCEDURE REASON: Stroke suspected (Ped 0-18y) * * * * Physician Interpretation * * * * EXAMINATION: MRI BRAIN WO IVCON CLINICAL HISTORY: Stroke workup, unresponsive TECHNIQUE: Routine noncontrast MRI protocol including diffusion images. MQ: MRBWO_2 COMPARISON: CT, CTA neck dated 09/22/24 RESULT: Acute Change: There is no evidence of restricted diffusion to suggest an acute infarct. Hemorrhage: No evidence of prior parenchymal hemorrhage on the susceptibility weighted images. Mass Lesion/ Mass Effect: No evidence of an intracranial mass or extra-axial fluid collection. No significant mass effect. Chronic Change: Scattered punctate foci of increased T2 and FLAIR signal are noted in the supratentorial white matter which is a nonspecific finding, but likely represents minimal chronic microvascular ischemia. Parenchyma: No significant volume loss for age. The brain parenchyma is otherwise within normal limits of signal intensity and morphology. Ventricles: Normal caliber and morphology. Skull Base: Hypothalamic and pituitary region are grossly normal. Craniocervical junction is normal. No significant marrow replacement process. Vasculature: Major intracranial arterial structures, and dural venous sinuses show typical flow void, suggesting patency by spin echo criteria. Other: Mild nonspecific mucosal thickening of paranasal sinuses. Mastoid air cells are clear. The orbits and extracranial soft tissues are unremarkable. IMPRESSION: 1. No acute intracranial abnormality. 2. Minimal chronic microvascular ischemic changes. Business Account Specialist: ANGIE Transcribe Date/Time: Sep 22 2024 6:56P Dictated by : CORBY CRUMP MD This examination was interpreted and the report reviewed and electronically signed by: CORBY CRUMP MD on Sep 22 2024 7:06PM EST [id number] Normal [facility] Magnesium SerPl-mCncon 09-22 Magnesium [Mass/Vol] 1.5 mg/dL Low 1.7-2.3 [facility] Comment on above: Order Comment: Speci men Type: BLOOD SPECIMENOrdering Facility: [facility] Address: [address] [place] [address] Performed By: #### 1 9123-9, 2777-1, 64760-8 ####[facility] LABORATORYCLIA [id number] [place] [address] [place] NURSING PROGon 09-22-2024 NURSING PROG HNO ID: [id number] Author: SARAH BONILLA RN Service: Nursing Author Type: Registered Nurse Type: Nursing Progress Note Filed: 09/22/2024 20:00 Note Text: Summary: Handoff/ documentation Correction Report was given to NSICU RN Sunitha who is now assuming care of this patient and [facility] Rapid Response Nurse was present for stroke team and assisted as needed but did not: receive bedside handoff or assume care of this patient. Normal [facility] Phosphate SerPl-mCncon 09-22 Phosphate [Mass/Vol] 3.7 mg/dL Normal 2.7-4.8 [facility] Comment on above: Order Comment: Julieta boswell Type: BLOOD SPECIMENOrdering Facility: [facility] Address: [address] [place] [address] Performed By: #### 1 9123-9, 2777-1, 32967-8 ####[facility] LABORATORYCLIA [id number] [address] [place] TSH SerPl-aCncon 09-22-2024 TSH Qn 0.032 m[IU]/L Low 0.270-4.20 0 [facility] Comment on above: Order Comment: Julieta boswell Type: BLOOD SPECIMENOrdering Facility: [facility] Address: [address] [place] [address] Performed By: #### 2 4321-2, 3016-3 ####[facility] LABORATORYCLIA [id number] [address] [place] TYPE + SCREENon 09-22-2024 ABO A Normal [facility] Comment on above: Order Comment: Julieta boswell Type: BLOOD SPECIMENOrdering Facility: [facility] Address: [address] [place] [address] Performed By: #### T SCR ####[facility] BLOOD BANKCLIA [id number] [address] Rh Nom (Bld) Negative Normal [facility] Comment on above: Order Comment: Speci men Type: BLOOD SPECIMENOrdering Facility: [facility] Address: [address] [place] [id number] Performed By: #### T SCR ####[facility] BLOOD BANKCLIA [id number] [place] [id number] [facility] TYPE AND SCREEN EXPIRATION 09/25/2024 23:59 Normal [facility] Comment on above: Order Comment: Speci men Type: BLOOD SPECIMENOrdering Facility: [facility] Address: [address] [place] [address] Performed By: #### T SCR ####[facility] BLOOD BANKCLIA [id number] [place] [id number] [facility] Telephone (AGCARDPOB ) BELLA MORILLO ([id number]) 1955 F Date Time Provider Department 09/19/24 CHI ZAMORAVICHAGCARDPOB During your visit today, we recorded the following information about you: Margarita Rangel 09/19/2024 11:36 AM Signed Called to offer patient 09/22 date for ablation. If patient does not call back by 3pm on 09/19, patient will be offered new date when available Patient is scheduled for a PVI Ablation on 09/[address] Zamora. The hospital will call the day before between 2-5pm with your arrival time. You should not eat or drink after midnight the day before the procedure. You will need a lead driver when released from the hospital and you will stay overnight for observation. You should continue to take medications as prescribed the morning of the procedure with just a sip of water unless otherwise instructed. HANDP morning of Left message for Bella Luciano Morillo to call back and confirm date AND instructions Margarita Rangel Office use: Lynnette Welch RN 09/19/2024 12:02 PM Addendum Bella Wolf Yisel called back and is agreeable to date. Relayed Margarita's instructions and she voiced understanding. Pt's name has been added to [facility] procedure board. Pt reports she is not on OAC. Was intention to start pre-procedure? SHAWN Umanzor Kimberly, APRN.POOJA 09/19/2024 12:44 PM Signed Will send Eliquis 5 mg twice daily (about every 12 hours) to the [facility] pharmacy listed on her chart. She should avoid NSAIDS while taking Eliquis to decrease risk of bleeding. She should start the medication today and if she presents for ablation in sinus rhythm will proceed, if she is in atrial fibrillation, will need BRYAN prior to ablation. She will then continue Eliquis uninterrupted for at least 3 months post ablation. Thank you. Lilia Martinez APRN.Lilia Grover APRN.POOJA 09/19/2024 12:44 PM Signed Addended by: LILIA MARTINEZ on: 09/19/2024 12:44 PM Modules accepted: Lynnette Sanabria RN 09/19/2024 12:59 PM Signed Called Bella Luciano Morillo to relay Twyla's message, recommendations, and plan. Pt verbalized understanding and agreeable to start Eliquis today, avoid NSAIDS, and the planned timeline for continuing uninterrupted OAC post procedure. Additionally she understands she may also need BRYAN prior to ablation if she is found to be afib day of procedure. Lynnette Welch RN Allergies As of Date: 09/19/2024 Noted Allergy Reaction BEES 04/03/2004 10 - Anaphylaxis CODEINE 06/21/2006 5 - Intolerance Comments: migraines ADHESIVE TAPE (ROSINS) 08/17/2005 2 - Rash 9 - Itching ADHESIVE TAPE-SILICONES 16 - Unknown BEE STING 09/24/2015 10 - Anaphylaxis BEE VENOM PROTEIN (HONEY BEE) 10 - Anaphylaxis CORTISONE 08/10/2019 14 - Other: See Comments Comments: Turns red DAKIN'S (SODIUM HYPOCHLORITE SOLU*12/08/2019 16 - Unknown NICKEL 11/24/2019 16 - Unknown VANADIUM 11/24/2019 16 - Unknown Date Reviewed: 08/03/2024 Reviewed by: Camelia Clarke RN - Fully Assessed Reason for Visit: Preparations For Procedures [899] Primary Visit Diagnosis:Paroxysmal atrial fibrillation (HCC) [I48.0] Other Visit Diagnoses:At risk for altered cerebral tissue perfusion due to history of stroke [Z91.89, Z86.73] At risk for stroke [Z91.89] Order(s):apixaban (ELIQUIS) 5 mg tab(s)Take 1 tablet by mouth two times a day.Disp: 60 tabletRfl: 5 Prescriptions as of 09/19/2024 - apixaban (ELIQUIS) 5 mg tab(s) Take 1 tablet by mouth two times a day. - HYDROcodone-acetaminophen (NORCO) 5-325 mg per tablet Take 1 tablet by mouth every 6 hours as needed. TAKE 1 TABLET BY MOUTH EVERY 12 HOURS NEEDED FOR PAIN - metoprolol tartrate, short acting, (LOPRESSOR) 25 mg tablet TAKE 1 TABLET BY MOUTH TWICE A DAY - Propafenone HCl (RYTHMOL) 225 mg tablet TAKE 1 TABLET EVERY 8 HOURS - liothyronine (CYTOMEL) 25 mcg tablet Take 25 mcg by mouth once daily. - calcitriol (ROCALTROL) 0.25 mcg capsule TAKE 1 PILL BY MOUTH WEDNESDAY, WEDNESDAY, WEDNESDAY - cephALEXin (KEFLEX) 250 mg capsule Take 250 mg by mouth two times a day. - aspirin, enteric coated (ASPIRIN, ENTERIC COATED) 81 mg EC tablet Take 81 mg by mouth once daily. - inulin (FIBER GUMMIES) 2 gram chew Take 1 Each by mouth as needed. - pantoprazole DR (PROTONIX) 40 mg tablet Take 40 mg by mouth once daily. - liothyronine (CYTOMEL) 5 mcg tablet Take 1 tablet by mouth twice daily. - vit A/vit C/vit E/zinc/copper (ICAPS AREDS ORAL) Take 1 tablet by mouth two times a day. - cholecalciferol, Vitamin D3, (VITAMIN D3) 1,250 mcg (50,000 unit) cap capsule Take 50,000 Units by mouth once every month. - ibuprofen-acetaminophen (ADVIL DUAL ACTION) 125-250 mg tab Take 2 tablets by mouth twice daily as needed. - levothyroxine (SYNTHROID) 112 mcg tablet Take 1 tablet by mouth once daily. - EPINEPHrine (EPIPEN) 0.3 mg/0.3 mL auto-injecto (more content not included)... Normal [facility] CBC W Auto Differential pane l (Bld)on 08-07-2024 Basophils (Bld) [#/Vol] 0.08 10*3/uL Normal <0.11 [facility] Comment on above: Order Comment: Speci men Type: BLOOD SPECIMENOrdering Facility: [facility] Address: [address] [place] [address] Performed By: #### 5 7021-8 ####[facility] [id number] [place] [address] [place] Basophils/100 WBC (Bld) 1.4 % Normal [facility] Comment on above: Order Comment: Speci men Type: BLOOD SPECIMENOrdering Facility: [facility] Address: [address] [place] [address] Performed By: #### 5 7021-8 ####[facility] [id number] [place] [address] [place] Differential cell count method Nom (Bld) Auto Normal [facility] Comment on above: Order Comment: Speci men Type: BLOOD SPECIMENOrdering Facility: [facility] Address: [address] [place] [address] Performed By: #### 5 7021-8 ####[facility] [id number] [place] [address] [place] Eosinophils (Bld) [#/Vol] 0.38 10*3/uL Normal <0.46 [facility] Comment on above: Order Comment: Speci men Type: BLOOD SPECIMENOrdering Facility: [facility] Address: [address] [place] [address] Performed By: #### 5 7021-8 ####[facility] STEPHIEWNCLIA [id number] [place] [address] [place] Eosinophils/100 WBC (Bld) 6.6 % Normal [facility] Comment on above: Order Comment: Speci men Type: BLOOD SPECIMENOrdering Facility: [facility] Address: [address] [place] [address] Performed By: #### 5 7021-8 ####[facility]ITALERNESTINALIA [id number] [place] [address] [place] Erythrocyte distribution width (RBC) [Ratio] 14.2 % Normal 11.5-15.0 [facility] Comment on above: Order Comment: Speci men Type: BLOOD SPECIMENOrdering Facility: [facility] Address: [address] [place] [address] Performed By: #### 5 7021-8 ####[facility]ITALDOMOA [id number] [place] [address] [place] Hematocrit (Bld) [Volume fraction] 37.2 % Normal 36.0-46.0 [facility] Comment on above: Order Comment: Speci men Type: BLOOD SPECIMENOrdering Facility: [facility] Address: [address] [place] [address] Performed By: #### 5 7021-8 ####[facility]ITALERNESTINALIA [id number] [place] [address] [place] Hemoglobin (Bld) [Mass/Vol] 12.1 g/dL Normal 11.5-15.5 [facility] Comment on above: Order Comment: Speci men Type: BLOOD SPECIMENOrdering Facility: [facility] Address: [address] [place] [address] Performed By: #### 5 7021-8 ####[facility]ITALNCLIA [id number] [place] [address] [place] Immature granulocytes (Bld) [#/Vol] 10*3/uL Normal <0.10 [facility] Comment on above: Order Comment: Speci men Type: BLOOD SPECIMENOrdering Facility: [facility] Address: [address] [place] [address] Performed By: #### 5 7021-8 ####[facility]ITALNCA [id number] [place] [address] [place] Immature granulocytes/100 WBC (Bld) 0.2 % Normal [facility] Comment on above: Order Comment: Speci men Type: BLOOD SPECIMENOrdering Facility: [facility] Address: [address] [place] [address] Performed By: #### 5 7021-8 ####[facility] [id number] [place] [address] [place] Lymphocytes (Bld) [#/Vol] 1.31 10*3/uL Normal 1.00-4.00 [facility] Comment on above: Order Comment: Speci men Type: BLOOD SPECIMENOrdering Facility: [facility] Address: [address] [place] [address] Performed By: #### 5 7021-8 ####[facility] [id number] [place] [address] [place] Lymphocytes/100 WBC (Bld) 22.6 % Normal [facility] Comment on above: Order Comment: Speci men Type: BLOOD SPECIMENOrdering Facility: [facility] Address: [address] [place] [address] Performed By: #### 5 7021-8 ####[facility] [id number] [place] [address] [place] MCH (RBC) [Entitic mass] 29.1 pg Normal 26.0-34.0 [facility] Comment on above: Order Comment: Speci men Type: BLOOD SPECIMENOrdering Facility: [facility] Address: [address] [place] [address] Performed By: #### 5 7021-8 ####[facility] MALINA [id number] [place] [address] [place] MCHC (RBC) [Mass/Vol] 32.5 g/dL Normal 30.5-36.0 [facility] Comment on above: Order Comment: Speci men Type: BLOOD SPECIMENOrdering Facility: [facility] Address: [address] [place] [address] Performed By: #### 5 7021-8 ####[facility]ITALNCDOC [id number] [place] [address] [place] MCV (RBC) [Entitic vol] 89.4 fL Normal 80.0-100.0 [facility] Comment on above: Order Comment: Speci men Type: BLOOD SPECIMENOrdering Facility: [facility] Address: [address] [place] [address] Performed By: #### 5 7021-8 ####[facility]ITALLuciano [id number] [place] [address] [place] Monocytes (Bld) [#/Vol] 0.60 10*3/uL Normal <0.87 [facility] Comment on above: Order Comment: Speci men Type: BLOOD SPECIMENOrdering Facility: [facility] Address: [address] [place] [address] Performed By: #### 5 7021-8 ####[facility]ITALNCLIA [id number] [place] [address] [place] Monocytes/100 WBC (Bld) 10.4 % Normal [facility] Comment on above: Order Comment: Speci men Type: BLOOD SPECIMENOrdering Facility: [facility] Address: [address] [place] [address] Performed By: #### 5 7021-8 ####[facility] MIAMISBURGLIA [id number] [place] [address] [place] Neutrophils (Bld) [#/Vol] 3.41 10*3/uL Normal 1.45-7.50 [facility] Comment on above: Order Comment: Speci men Type: BLOOD SPECIMENOrdering Facility: [facility] Address: [address] [place] [address] Performed By: #### 5 7021-8 ####[facility] [id number] [place] [address] [place] Neutrophils/100 WBC (Bld) 58.8 % Normal [facility] Comment on above: Order Comment: Speci men Type: BLOOD SPECIMENOrdering Facility: [facility] Address: [address] [place] [address] Performed By: #### 5 7021-8 ####[facility] [id number] [place] [address] [place] Nucleated RBC (Bld) [#/Vol] 10*3/uL Normal <0.01 [facility] Comment on above: Order Comment: Speci men Type: BLOOD SPECIMENOrdering Facility: [facility] Address: [address] [place] [address] Performed By: #### 5 7021-8 ####[facility] [id number] [place] [address] [place] Nucleated RBC/100 WBC (Bld) [Ratio] 0.0 /100 WBC Normal [facility] Comment on above: Order Comment: Speci men Type: BLOOD SPECIMENOrdering Facility: [facility] Address: [address] [place] [address] Performed By: #### 5 7021-8 ####[facility] H[facility]ITALNCLI [id number] [place] [address] [place] Platelet mean volume (Bld) [Entitic vol] 11.0 fL Normal 9.0-12.7 [facility] Comment on above: Order Comment: Speci men Type: BLOOD SPECIMENOrdering Facility: [facility] Address: [address] [place] [address] Performed By: #### 5 7021-8 ####[facility]ITALNCLIFEPOINT [facility] [id number] [place] [address] [place] Platelets (Bld) [#/Vol] 205 10*3/uL Normal 150-400 [facility] Comment on above: Order Comment: Speci men Type: BLOOD SPECIMENOrdering Facility: [facility] Address: [address] [place] [address] Performed By: #### 5 7021-8 ####[facility]ITALNCLIFEPOINT [facility]ALS [id number] [place] [address] [place] RBC (Bld) [#/Vol] 4.16 10*6/uL Normal 3.90-5.20 [facility] Comment on above: Order Comment: Speci men Type: BLOOD SPECIMENOrdering Facility: [facility] Address: [address] [place] [address] Performed By: #### 5 7021-8 ####[facility]OSPITALNCA [id number] [place] [address] [place] WBC (Bld) [#/Vol] 5.79 10*3/uL Normal 3.70-11.00 [facility] Comment on above: Order Comment: Speci men Type: BLOOD SPECIMENOrdering Facility: [facility] Address: [address] [place] [address] Performed By: #### 5 7021-8 ####[facility]ITALNCLI [id number] [place] [address] [place] Ferritin SerPl-mCncon 2024 Ferritin [Mass/Vol] 230.0 ng/mL High 14.7-205.1 [facility] Comment on above: Order Comment: Speci men Type: BLOOD SPECIMENOrdering Facility: [facility] Address: [address] [place] [address] Performed By: #### 5 0190-8, 2275-4 ####[facility] LABCLIA [id number] [place] [address] [place] Iron and Iron binding capaci ty panelon 08-07-2024 Iron [Mass/Vol] 84 ug/dL Normal 41-186 [facility] Comment on above: Order Comment: Speci men Type: BLOOD SPECIMENOrdering Facility: [facility] Address: [address] [place] [address] Performed By: #### 5 0190-8, 2275-4 ####[facility] LABIA [id number] [address] [facility] Iron binding capacity [Mass/Vol] 240 ug/dL Normal 232-386 [facility] Comment on above: Order Comment: Speci men Type: BLOOD SPECIMENOrdering Facility: [facility] Address: [address] [place] [address] Performed By: #### 5 0190-8, 4 ####[facility] LABIA [id number] [address] [place] Iron/TIBC [Molar ratio] 35.0 % Normal 15.0-57.0 [facility] Comment on above: Order Comment: Speci men Type: BLOOD SPECIMENOrdering Facility: [facility] Address: [address] [place] [address] Performed By: #### 5 0190-8, 4 ####[facility] LABIA [id number] [place] [id number] [place] Valerie 08-04-2024 POOJAN Telephone (DARIEN) BELLA MORILLO ([id number]) 1955 F Date Time Provider Department 08/04/24 CHI ZAMORAHAGCARK During your visit today, we recorded the following information about you: Jasmyn Wood LPN 08/04/2024 1:14 PM Signed Bella Morillo called in and states colonoscopy has been completed. She would like to schedule ablation at this time. LUIS Hill Sergey Aleksandrovich, MD 08/04/2024 2:06 PM Signed OK, will arrange. MD Noah Mitchell Sergey Aleksandrovich, MD 08/04/2024 2:06 PM Signed Addended by: CHI ZAMORA on: 08/04/2024 02:06 PM Modules accepted: Orders Allergies As of Date: 08/04/2024 Noted Allergy Reaction BEES 04/03/2004 10 - Anaphylaxis CODEINE 06/21/2006 5 - Intolerance Comments: migraines ADHESIVE TAPE (ROSINS) 08/17/2005 2 - Rash 9 - Itching ADHESIVE TAPE-SILICONES 16 - Unknown BEE STING 09/24/2015 10 - Anaphylaxis BEE VENOM PROTEIN (HONEY BEE) 10 - Anaphylaxis CORTISONE 08/10/2019 14 - Other: See Comments Comments: Turns red DAKIN'S (SODIUM HYPOCHLORITE SOLU*12/08/2019 16 - Unknown NICKEL 11/24/2019 16 - Unknown VANADIUM 11/24/2019 16 - Unknown Date Reviewed: 08/03/2024 Reviewed by: Camelia Clarke RN - Fully Assessed Reason for Visit: Patient Update [1234] Primary Visit Diagnosis:Paroxysmal atrial fibrillation (HCC) [I48.0] Order(s):SURGICAL REQUEST - ELECTIVE (11/2019) [[id number]] Order #: [id number]: 1 Prescriptions as of 08/04/2024 - HYDROcodone-acetaminophen (NORCO) 5-325 mg per tablet Take 1 tablet by mouth every 6 hours as needed. TAKE 1 TABLET BY MOUTH EVERY 12 HOURS NEEDED FOR PAIN - metoprolol tartrate, short acting, (LOPRESSOR) 25 mg tablet TAKE 1 TABLET BY MOUTH TWICE A DAY - Propafenone HCl (RYTHMOL) 225 mg tablet TAKE 1 TABLET EVERY 8 HOURS - liothyronine (CYTOMEL) 25 mcg tablet Take 25 mcg by mouth once daily. - calcitriol (ROCALTROL) 0.25 mcg capsule TAKE 1 PILL BY MOUTH WEDNESDAY, WEDNESDAY, WEDNESDAY - cephALEXin (KEFLEX) 250 mg capsule Take 250 mg by mouth two times a day. - aspirin, enteric coated (ASPIRIN, ENTERIC COATED) 81 mg EC tablet Take 81 mg by mouth once daily. - inulin (FIBER GUMMIES) 2 gram chew Take 1 Each by mouth as needed. - pantoprazole DR (PROTONIX) 40 mg tablet Take 40 mg by mouth once daily. - liothyronine (CYTOMEL) 5 mcg tablet Take 1 tablet by mouth twice daily. - vit A/vit C/vit E/zinc/copper (ICAPS AREDS ORAL) Take 1 tablet by mouth two times a day. - cholecalciferol, Vitamin D3, (VITAMIN D3) 1,250 mcg (50,000 unit) cap capsule Take 50,000 Units by mouth once every month. - ibuprofen-acetaminophen (ADVIL DUAL ACTION) 125-250 mg tab Take 2 tablets by mouth twice daily as needed. - levothyroxine (SYNTHROID) 112 mcg tablet Take 1 tablet by mouth once daily. - EPINEPHrine (EPIPEN) 0.3 mg/0.3 mL auto-injector Inject 0.3 mg intramuscularly as needed. - multivitamin tablet Take 1 tablet by mouth once daily. 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0] 06/27/2019 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*06/27/2019 Raynaud's disease [I73.00] 06/27/2019 Headache [R51.9] 09/18/2020 History of atrial fibrillation [Z86.79] 09/18/2020 Kidney stone [N20.0] 10/08/2021 Cataract [H26.9] 10/08/2021 Decreased glomerular filtration rate (GFR) [R94*10/08/2021 Degeneration of intervertebral disc of lumbar r*10/08/2021 Macular degeneration [H35.30] 10/08/2021 Hematuria syndrome [R31.9] 10/08/2021 Hiatal hernia [K44.9] 10/08/2021 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 Normal [facility] [id number] 08-03-2024 [id number] HNO ID: [id number] Author: CAMELIA CLARKE RN Service: ? Author Type: Registered Nurse Type: [id number] Filed: 08/03/2024 12:22 Note Text: The patient received a copy of Colonoscopy discharge instructions that contain information for how to contact the physician who performed the procedure and when to seek medical care. Normal [facility] Colonoscopyon 08-03-2024 Colonoscopy [facility] Gastro[facility] Endoscopy Patient Name: Bella Morillo Procedure Date: 08/03/2024 11:35 AM Date of : 1955 Admit Type: Outpatient Age: 69 Gender: Female Note Status: Finalized Procedure: Colonoscopy Indications: Unexplained iron deficiency anemia Providers: Satish Flynn MD Patient Profile: This is a 69 year old female. Refer to note in patient chart for documentation of history and physical. Last Colonoscopy: 2021. Referring Physician: Elizabeth Roger MD (Referring MD) Medicines: Fentanyl 100 micrograms IV, Midazolam 8 mg IV, Diphenhydramine 50 mg IV Complications: No immediate complications. Estimated blood loss: None. Requesting Provider: Procedure: Pre-Anesthesia Assessment: - Prior to the procedure, a History and Physical was performed, and patient medications and allergies were reviewed. The patient's tolerance of previous anesthesia was also reviewed. The risks and benefits of the procedure and the sedation options and risks were discussed with the patient. All questions were answered, and informed consent was obtained. Prior Anticoagulants: The patient has taken no anticoagulant or antiplatelet agents. ASA Grade Assessment: II - A patient with mild systemic disease. After reviewing the risks and benefits, the patient was deemed in satisfactory condition to undergo the procedure. After I obtained informed consent, the scope was passed under direct vision. Throughout the procedure, the patient's blood pressure, pulse, and oxygen saturations were monitored continuously. The Colonoscope was introduced through the anus and advanced to 2 cm into the ileum. The colonoscopy was performed without difficulty. The patient tolerated the procedure well. The quality of the bowel preparation was good. The terminal ileum, ileocecal valve, appendiceal orifice, and rectum were photographed. Moderate Sedation: The administration of moderate sedation was initiated at 11:47. Moderate (conscious) sedation was personally administered by the endoscopist. The following parameters were monitored: oxygen saturation, heart rate, blood pressure, respiratory rate, EKG, adequacy of pulmonary ventilation, and response to care. Total physician intraservice time was 18 minutes. Findings: The perianal and digital rectal examinations were normal. Many small-mouthed diverticula were found in the sigmoid colon. Non-bleeding internal hemorrhoids were found during retroflexion. The hemorrhoids were mild and small. The terminal ileum appeared normal. The exam was otherwise without abnormality. Impression: - Diverticulosis in the sigmoid colon. - Non-bleeding internal hemorrhoids. - The examined portion of the ileum was normal. - The examination was otherwise normal. - No specimens collected. Recommendation: - Patient has a contact number available for emergencies. The signs and symptoms of potential delayed complications were discussed with the patient. Return to normal activities tomorrow. Written discharge instructions were provided to the patient. - Resume previous diet. - Continue present medications. - Repeat colonoscopy in 5 years for surveillance. - Return to referring provider at appointment to be scheduled. Procedure Code(s): --- Professional --- 60522, Colonoscopy, flexible; diagnostic, including collection of specimen(s) by brushing or washing, when performed (separate procedure) G0500, Moderate sedation services provided by the same physician or other qualified health career law clerk performing a gastrointestinal endoscopic service that sedation supports, requiring the presence of an independent trained observer to assist in the monitoring of the patient's level of consciousness and physiological status; initial 15 minutes of intra-service time; patient age 5 years or older (additional time may be reported with 97336, as appropriate) Diagnosis Code(s): --- Professional --- K64.8, Other hemorrhoids D50.9, Iron deficiency anemia, unspecified K57.30, Diverticulosis of large intestine without perforation or abscess without bleeding CPT copyright 202 [employer]. All rights reserved. The codes documented in this report are preliminary and upon conduit reamer operator review may be revised to meet current compliance requirements. Attending Participation: I personally performed the entire procedure. Scope In: 11:52:55 AM Scope Out: 12:05:52 PM MD Satish Pan MD 08/03/2024 12:10:05 PM This report has been signed electronically by Satish Flynn MD Number of Addenda: 0 Note Initiated On: 08/03/2024 11:35 AM Estimated Blood Loss: Estimated blood loss: none. Normal [facility] Colonoscopy Study observatio non 08-03-2024 [facility] Gastrointestinal Endoscopy Patient Name: Bella Morillo Procedure Date: 08/03/2024 11:35 AM Date of : 1955 Admit Type: Outpatient Age: 69 Gender: Female Note Status: Finalized Procedure: Colonoscopy Indications: Unexplained iron deficiency anemia Providers: Satish Flynn MD Patient Profile: This is a 69 year old female. Refer to note in patient chart for documentation of history and physical. Last Colonoscopy: 2021. Referring Physician: Elizabeth Roger MD (Referring MD) Medicines: Fentanyl 100 micrograms IV, Midazolam 8 mg IV, Diphenhydramine 50 mg IV Complications: No immediate complications. Estimated blood loss: None. Requesting Provider: Procedure: Pre-Anesthesia Assessment: - Prior to the procedure, a History and Physical was performed, and patient medications and allergies were reviewed. The patient's tolerance of previous anesthesia was also reviewed. The risks and benefits of the procedure and the sedation options and risks were discussed with the patient. All questions were answered, and informed consent was obtained. Prior Anticoagulants: The patient has taken no anticoagulant or antiplatelet agents. ASA Grade Assessment: II - A patient with mild systemic disease. After reviewing the risks and benefits, the patient was deemed in satisfactory condition to undergo the procedure. After I obtained informed consent, the scope was passed under direct vision. Throughout the procedure, the patient's blood pressure, pulse, and oxygen saturations were monitored continuously. The Colonoscope was introduced through the anus and advanced to 2 cm into the ileum. The colonoscopy was performed without difficulty. The patient tolerated the procedure well. The quality of the bowel preparation was good. The terminal ileum, ileocecal valve, appendiceal orifice, and rectum were photographed. Moderate Sedation: The administration of moderate sedation was initiated at 11:47. Moderate (conscious) sedation was personally administered by the endoscopist. The following parameters were monitored: oxygen saturation, heart rate, blood pressure, respiratory rate, EKG, adequacy of pulmonary ventilation, and response to care. Total physician intraservice time was 18 minutes. Findings: The perianal and digital rectal examinations were normal. Many small-mouthed diverticula were found in the sigmoid colon. Non-bleeding internal hemorrhoids were found during retroflexion. The hemorrhoids were mild and small. The terminal ileum appeared normal. The exam was otherwise without abnormality. Impression: - Diverticulosis in the sigmoid colon. - Non-bleeding internal hemorrhoids. - The examined portion of the ileum was normal. - The examination was otherwise normal. - No specimens collected. Recommendation: - Patient has a contact number available for emergencies. The signs and symptoms of potential delayed complications were discussed with the patient. Return to normal activities tomorrow. Written discharge instructions were provided to the patient. - Resume previous diet. - Continue present medications. - Repeat colonoscopy in 5 years for surveillance. - Return to referring provider at appointment to be scheduled. Procedure Code(s): --- Professional --- 22805, Colonoscopy, flexible; diagnostic, including collection of specimen(s) by brushing or washing, when performed (separate procedure) G0500, Moderate sedation services provided by the same physician or other qualified health career law clerk performing a gastrointestinal endoscopic service that sedation supports, requiring the presence of an independ (more content not included)... PROVATION [facility] Radiology Study observation (narrative) [facility] HISTORY PHYSICALon HISTORY PHYSICAL HNO ID: [id number] Author: SATISH FLYNN MD Service: General Surgery Author Type: Physician Type: H&P Filed: 08/03/2024 11:12 Note Text: HPI: Bella Morillo is a 69 year old female with PMHx of afib with PACs, jasen's, osteoporosis, knee replacement, CKD, and anemia. She presents as a referral from her PCP, Dr. Montero for DANITA with inability to tolerate PO iron. Ms. Morillo reports fatigue. Denies any current SOB, CP. She does have a hx of afib with PACs. Not currently on anticoagulation. She denies current overt s/s of bleeding. UTI in November with hematuria. No issues since then. Denies any new aches or pains. She has chronic knee pain 2/2 several knee replacements. She has met with ortho and was given several options for further treatment, including monitoring which she has chosen. Constant bowel issues. Seeing Dr. Hightower at the end of the month for a colonscopy. Last scope 2 years ago. No concerns. Had an EGD several years ago. Started PO iron BID in September, somewhat intermittent. Stopped taking about 2 weeks ago due to significant constipation and occasional upset stomach. Taking hungarian perfecto as needed. Currently trying to get thyroid under better control. Fluctuating TSH. Endorses dry skin, hair loss. Does not eat red meat, does not eat processed meats. Blood transfusion at time of knee surgery, (maybe 4 or five total) Fiber gummies, occasional tums, jose back and body occasionally. No regular NSAID or antiacid use. Mother of colon ca dx age of 73, 6 weeks later. 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 Interval Hx: Pt presents today for follow up and lab review after receiving IV iron. Counts responded well Tolerated IV iron well overall aside from BURRELL. Notes BURRELL following second infusion lasted about a day resolved. No other issues. Saw Dr. Hightower, states no indication for scope. Performed EGD. Last scope was > 4 years ago, [facility] [place] Dr. Berumen. Reviewed would recommend repeat screening colonoscopy with a new DANITA diagnosis. Started on [place] by Dr Montero for knee pain. Denies bleeding or bruising. No changes in bowel or bladder habits. 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 Knee pain Macular degeneration Migraine with aura Osteopenia 2010 PAC (premature atrial contraction) Palpitations Pituitary disorder (HCC) prolactin elevation on reglan Postmenopausal osteoporosis 2015 Thyrotoxicosis without mention of goiter or other cause Uterine fibroid Vitamin D deficiency PAST SURGICAL HISTORY PAST SURGICAL HISTORY Procedure Laterality Date AFIB ABLATION/PULM VEIN ISOLATION 2006 pulmonary vein ablation for A fib AFIB ABLATION/PULM VEIN ISOLATION 2014 ARTHROTOMY W/MENISCUS REPAIR KNEE Left 1966 Open knee reconstruction ARTHRP KNE CONDYLEANDPLATU MEDIALANDLAT COMPARTMENTS Left x2 ARTHRP KNE CONDYLEANDPLATU MEDIALANDLAT COMPARTMENTS Left 11/08/2019 revision, Dr. Reyes COLONOSCOPY 2008 due in 5 years COLONOSCOPY 2020 wnl due in 3 years FINGER SURGERY HX Right trigger finger KNEE SURGERY HX Left x6 KNEE SURGERY HX Left 1997 LEG SURGERY HX femur fracture SPINE SURGERY HX 2012 TOTAL KNEE REPLACEMENT Right 2020 CURRENT MEDICATIONS Current Outpatient Medications Medication Sig Dispense Refill HYDROcodone-acetaminophen (NORCO) 5-325 mg per tablet Take 1 tablet by mouth every 6 hours as needed. TAKE 1 TABLET BY MOUTH EVERY 12 HOURS NEEDED FOR PAIN metoprolol tartrate, short acting, (LOPRESSOR) 25 mg tablet TAKE 1 TABLET BY MOUTH TWICE A DAY 180 tablet 3 Propafenone HCl (RYTHMOL) 225 mg tablet TAKE 1 TABLET EVERY 8 HOURS 270 tablet 3 liothyronine (CYTOMEL) 25 mcg tablet Take 25 mcg by mouth once daily. calcitriol (ROCALTROL) 0.25 mcg capsule TAKE 1 PILL BY MOUTH WEDNESDAY, WEDNESDAY, WEDNESDAY inulin (FIBER GUMMIES) 2 gram chew Take 1 Each by mouth as needed. pantoprazole DR (PROTONIX) 40 mg tablet Take 40 mg by mouth once daily. liothyronine (CYTOMEL) 5 mcg tablet Take 1 tablet by mouth twice daily. 180 tablet 0 vit A/vit C/vit E/zinc/copper (ICAPS AREDS ORAL) Take 1 tablet by mouth two times a day. cholecalciferol, Vitamin D3, (VITAMIN D3) 1,250 mcg (50,000 unit) cap capsule Take 50,000 Units by mouth once every month. levothyroxine (SYNTHROID) 112 mcg tablet Take 1 tablet by mouth once daily. 90 tablet 3 EPINEPHrine (EPIPEN) 0.3 mg/0.3 mL auto-injector Inject 0.3 mg intr (more content not included)... Normal [facility] Valerie 07-21-2024 POOJAN Telephone (GSTNOR) BELLA MORILLO ([id number]) 1955 F Date Time Provider Department 07/21/24 ELIZABETH ROGER GSTNOZenaida During your visit today, we recorded the following information about you: Kylie Galeas 07/21/2024 2:18 PM Signed Indication: HIGH RISK SCREENING COLONOSCOPY Patient must be at least 45 years old for screening colonoscopy unless other high risk factors. Anyone over 80 requires an office visit prior to scheduling screening colonoscopy. Personal History Colon polyps? No Colon cancer? No Crohn's Disease? No Ulcerative Colitis? No If any answers are a yes, pt is HIGH RISK SCREENING Family History Colon polyps? No Colon cancer? Yes - Mother If any answers are a yes, pt is HIGH RISK SCREENING Height: 5'7 Weight: 150 lbs BMI: 23.5 (If BMI over 45, can't be scheduled in [place], If BMI is 40-45, must schedule an airway check prior to scheduling in [place]) Tracheostomy new or old No If yes, schedule at hospital Any surgery or radiation to the head or neck? No If can't move neck side to side AND up and down, schedule at hospital. Radiation to neck or head automatically gets scheduled at hospital Implanted defibrillator (ACD)? No If yes, schedule at hospital Have you ever been told you were difficult to intubate? No If yes, schedule at hospital Allergies: Latex, Adhesives, or Medication? Adhesives - Blisters, Medications - Codeine If anaphylactic reaction to latex, schedule at hospital Recent stroke or cardiac event in the past 6 months? No (ex: heart attack or stent placement). If yes, schedule 6 months after cardiac event. *Patient has a history of Afib Are you insulin dependent? Are your sugars in control? Ask what BS is running. No If controlled sugars needs scheduled in early AM, If uncontrolled sugars and are over 250 needs to be scheduled at hospital. Are you on any weight loss/diabetic medications (injectable or oral)? No If yes, please have pt contact prescribing physician about stopping med prior to procedure. On oxygen at home? No If yes, give to GARAGE HELPER to evaluate. Chest pain or shortness of breath on exertion? No If yes, give to GARAGE HELPER to evaluate. Any kidney/liver disease or on dialysis? No If cirrhosis pt., have GARAGE HELPER review chart History of COPD/Emphysema/Asthma/or Sleep Apnea? No If uses an inhaler, have pt bring inhaler with them. On any blood thinners? No (Coumadin, Plavix, ASA, Xarelto, Brilinta, Eliquis, Pradaxa, Efficent etc.) If yes, have patient contact prescribing physician about stopping prior to procedure. Do you have a history of seizures? No If yes, when was last seizure? Omaira Kylie 07/21/2024 2:15 PM Signed COLONOSCOPY BOWEL PREPARATION INSTRUCTIONS GOLYTELY/NULYTELY/TRILYTE/C OLYTE Your doctor has scheduled you for a colonoscopy. To have a successful colonoscopy, you must have a clean colon, that is empty. A clean colon allows your doctor to see the entire colon AND diagnose issues like polyps or cancer. For doctors, a clean colon is like driving on a gracie day; a dirty colon like driving in a storm. It is very important that you follow these instructions exactly, or your colonoscopy might not be as effective, could be canceled, and you may need to do the bowel prep and the colonoscopy again. TRANSPORTATION REQUIREMENTS You are receiving IV sedation. For your safety, a responsible adult escort must accompany you to and from your procedure: Your adult escort MUST be present with you at check-in for your colonoscopy. Your adult escort MUST remain in the endoscopy area until you are discharged. Your adult escort MUST transport you home once you are discharged. You are NOT allowed to operate any form of transportation (i.e. drive a car, bicycle, etc.) or leave the Endoscopy Center ALONE. It is not safe to do so. If you cannot meet these requirements, your procedure will be canceled. MEDICATION REQUIREMENTS For your safety, certain medications will need to be stopped or adjusted before you can have your procedure: BLOOD THINNERS: If you take blood thinners, such as Coumadin (warfarin), Plavix (clopidogrel), Ticlid (ticlopidine hydrochloride), Agrylin (anagrelide), Xarelto (Rivaroxaban), Pradaxa (Dabigatran), Eliquis (Apixaban), or Effient (Prasugrel), contact the physician who is prescribing these medications at least 2 weeks prior to your procedure to discuss any necessary adjustments. DIABETES: If you take medications for diabetes, your dosage may need to be adjusted. If you are being treated for diabetes with insulin, diabetic pills, or other injectable medications do not take your REGULAR dose after midnight on the day of your procedure. If you are taking any other types of insulin such as Lantus, Humalog, NPH (long-acting insulin), or 70/30 insulin, take half your normal dose the day before y (more content not included)... [facility] ([id number]) 1955 F Date Time Provider Department 07/21/24 ELIZABETH ROGER GSTNOR During your visit today, we recorded the following information about you: Kylie Galeas 07/21/2024 2:31 PM Signed I created a colonoscopy screening order for this patient and as I was scheduling, she made me aware that she has received four iron infusions last year (last infusion on 03/02/24). States she is unsure if she has a bleed and assumes she will find out with the colonoscopy. I am not sure if this actually should be the screening colonoscopy or if further evaluation is required. I told patient we would contact her back once I verify that it is appropriate to move forward with scheduling. Phone number verified on account. Please advise Allergies As of Date: 07/21/2024 Noted Allergy Reaction BEES 04/03/2004 10 - Anaphylaxis CODEINE 06/21/2006 5 - Intolerance Comments: migraines ADHESIVE TAPE (ROSINS) 08/17/2005 2 - Rash 9 - Itching ADHESIVE TAPE-SILICONES 16 - Unknown BEE STING 09/24/2015 10 - Anaphylaxis BEE VENOM PROTEIN (HONEY BEE) 10 - Anaphylaxis CORTISONE 08/10/2019 14 - Other: See Comments Comments: Turns red DAKIN'S (SODIUM HYPOCHLORITE SOLU*12/08/2019 16 - Unknown NICKEL 11/24/2019 16 - Unknown VANADIUM 11/24/2019 16 - Unknown Date Reviewed: 07/20/2024 Reviewed by: Rosario Middleton MA - Fully Assessed Reason for Visit: Orders [681] Prescriptions as of 09/14/2024 - HYDROcodone-acetaminophen (NORCO) 5-325 mg per tablet Take 1 tablet by mouth every 6 hours as needed. TAKE 1 TABLET BY MOUTH EVERY 12 HOURS NEEDED FOR PAIN - metoprolol tartrate, short acting, (LOPRESSOR) 25 mg tablet TAKE 1 TABLET BY MOUTH TWICE A DAY - Propafenone HCl (RYTHMOL) 225 mg tablet TAKE 1 TABLET EVERY 8 HOURS - liothyronine (CYTOMEL) 25 mcg tablet Take 25 mcg by mouth once daily. - calcitriol (ROCALTROL) 0.25 mcg capsule TAKE 1 PILL BY MOUTH WEDNESDAY, WEDNESDAY, WEDNESDAY - cephALEXin (KEFLEX) 250 mg capsule Take 250 mg by mouth two times a day. - aspirin, enteric coated (ASPIRIN, ENTERIC COATED) 81 mg EC tablet Take 81 mg by mouth once daily. - inulin (FIBER GUMMIES) 2 gram chew Take 1 Each by mouth as needed. - pantoprazole DR (PROTONIX) 40 mg tablet Take 40 mg by mouth once daily. - liothyronine (CYTOMEL) 5 mcg tablet Take 1 tablet by mouth twice daily. - vit A/vit C/vit E/zinc/copper (ICAPS AREDS ORAL) Take 1 tablet by mouth two times a day. - cholecalciferol, Vitamin D3, (VITAMIN D3) 1,250 mcg (50,000 unit) cap capsule Take 50,000 Units by mouth once every month. - ibuprofen-acetaminophen (ADVIL DUAL ACTION) 125-250 mg tab Take 2 tablets by mouth twice daily as needed. - levothyroxine (SYNTHROID) 112 mcg tablet Take 1 tablet by mouth once daily. - EPINEPHrine (EPIPEN) 0.3 mg/0.3 mL auto-injector Inject 0.3 mg intramuscularly as needed. - multivitamin tablet Take 1 tablet by mouth once daily. 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 [* Palpitations [R00.2] PAC (premature atrial contraction) [I49.1] Essential hypertension, benign [I10] 08/09/2018 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0] 06/27/2019 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*06/27/2019 Raynaud's disease [I73.00] 06/27/2019 Headache [R51.9] 09/18/2020 History of atrial fibrillation [Z86.79] 09/18/2020 Kidney stone [N20.0] 10/08/2021 Cataract [H26.9] 10/08/2021 Decreased glomerular filtration rate (GFR) [R94*10/08/2021 Degeneration of intervertebral disc of lumbar r*10/08/2021 Macular degeneration [H35.30] 10/08/2021 Hematuria syndrome [R31.9] 10/08/2021 Hiatal hernia [K44.9] 10/08/2021 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 [Z*06/14/2023 Iron 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 *02/03/2024 Encounter Status:Closed by KYLIE GALEAS on 09/14/24 [facility] CNOVon 07-20-2024 CNOV Office Visit (DEMETRI BROOKS) BELLA MORILLO ([id number]) 1955 F Date Time Provider Department 07/20/24 2:00 PM CHI ZAMORAGCARDPOB During your visit today, we recorded the following information about you: Pulse Respiration Blood pressure Weight 58/minute 16/minute 132/76 70.3 kg Height 1.702 m Chi Zamora MD 07/20/2024 2:52 PM [facility] SECTION OF CARDIAC PACING and ELECTROPHYSIOLOGY OUTPATIENT VISIT DATE July 20, 2024 OUTPATIENT VISIT TYPE ESTABLISHED PRIMARY CARE PHYSICIAN: Sridhar Montero [address] [place] [address] HISTORY OF PRESENT ILLNESS: Prior history, edited as needed: 68 year female with history of PAF, s/p catheter ablation approximately 25 years ago and repeat radiofrequency ablation at [facility] in 2012, has been maintained on low-dose propafenone for symptomatic PACs, APP7-TC5-MCSy score of 1 for gender only, not anticoagulated, developed an episode of atrial fibrillation in early 2018, converted spontaneously. That was the first symptomatic episode of atrial fibrillation in the last 6 years. Since then her propafenone was increased to 225 mg 3 times a day. She was continued on metoprolol as well. Her ablation was performed in April 2012. Achieving electrical isolation of the left superior and left pulmonary veins required extensive ablation of the region area between left atrial appendage and the veins. 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 Interval history: Bella presents for follow-up. She has been feeling well, palpitation, dyspnea, or dizziness. She remains on propafenone with no obvious complications. She is contemplating another orthopedic surgery. Recent 14-day event monitor demonstrated sinus rhythm with infrequent PACs and no sustained arrhythmia. Echocardiogram showed normal LV systolic function, no significant LVH or valve issues. ECG today shows sinus rhythm at 60 bpm with normal intervals. Interval history: Bella presents for follow-up. In the last couple months she had several episodes of atrial fibrillation lasting for hours. She experienced severe palpitation, subsequent fatigue, and some degree of dyspnea. Both episodes resolved spontaneously. She was seen in the ER once and stay home without the time. Since then she had several brief episodes for which she did not seek medical attention. She is not on anticoagulation. Her WMM7-FW3-HTRh score is currently 2, for gender and age. She was recently diagnosed with anemia and is planned for lower endoscopy. Remains on propafenone for PACs. ECG shows sinus bradycardia 58 beats minute. 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 TAKE 1 TABLET BY MOUTH EVERY 12 HOURS NEEDED FOR PAIN metoprolol tartrate, short acting, (LOPRESSOR) 25 mg tablet TAKE 1 TABLET BY MOUTH TWICE A DAY Propafenone HCl (RYTHMOL) 225 mg tablet TAKE 1 TABLET EVERY 8 HOURS calcitriol (ROCALTROL) 0.25 mcg capsule TAKE 1 PILL BY MOUTH WEDNESDAY, WEDNESDAY, WEDNESDAY aspirin, enteric coated (ASPIRIN, ENTERIC COATED) 81 mg EC tablet Take 81 mg by mouth once daily. inulin (FIBER GUMMIES) 2 gram chew Take 1 Each by mouth as needed. pantoprazole DR (PROTONIX) 40 mg tablet Take 40 mg by mouth once daily. liothyronine (CYTOMEL) 5 mcg tablet Take 1 tablet by mouth twice daily. vit A/vit C/vit E/zinc/copper (ICAPS AREDS ORAL) Take 1 tablet by mouth two times a day. cholecalciferol, Vitamin D3, (VITAMIN D3) 1,250 mcg (50,000 unit) cap capsule Take 50,000 Units by mouth once every month. levothyroxine (SYNTHROID) 112 mcg tablet Take 1 tablet by mouth once daily. EPINEPHrine (EPIPEN) 0.3 mg/0.3 mL auto-injector Inject 0.3 mg intramuscularly as needed. liothyronine (CYTOMEL) 25 mcg tablet Take 25 mcg by mouth once daily. cephALEXin (KEFLEX) 250 mg capsule Take 250 mg by mouth two times a day. ibuprofen-acetaminophen (ADVIL DUAL ACTION) 125-250 mg t (more content not included)... Normal [facility] ECG B/O W INTERP (MED OFFICE )on 07-20-2024 Sinus bradycardia 58 beats minute, NE 160, QRS 90, QTc 4 ms, normal axis. [facility] Valerie 07-07-2024 LISA Telephone (IMVU) BELLA MORILLO ([id number]) 1955 F Date Time Provider Department 07/07/24 CHI ZAMORAANDROVICHAGCARReyes During your visit today, we recorded the following information about you: Jasmyn Wood LPN 07/07/2024 9:55 AM Signed Bella Morillo called in and states she went to [facility] on Wednesday for Atrial fib with heart rates up to 165 BPM. They gave her Cardizem and Magnesium and heart rate came down to 100 and she was released. Patient woke up this am at 1:30 in atrial fib with elevated heart rate 125 BPM. Patient took Metoprolol 50 mg at 3:30 am due to still in atrial fib with elevated heart rates. Patient remains on Rythmol 225 mg three times daily and Metoprolol 25 mg twice daily. States her heart rate is currently at 119. States she has palpitations and occasional SOB. Patient asking if any medication changes should be made? She is not due for follow up until 08/2024. LUIS Hill Sergey Aleksandrovich, MD 07/10/2024 9:03 AM Signed Let;s schedule her for an appt with me in a week or 2 to review the options.MD Claire Mitchell Emily 07/10/2024 9:12 AM Signed Left message with appointment date/time Jasmyn Silvestre LPN 07/10/2024 9:40 AM Signed I spoke to Bella Morillo and informed them of 's response and recommendations. Patient voiced understanding and agrees to proceed with 07/20/2024 appointment provided by clerical. Jasmyn Wood LPN Allergies As of Date: 07/07/2024 Noted Allergy Reaction BEES 04/03/2004 10 - Anaphylaxis CODEINE 06/21/2006 5 - Intolerance Comments: migraines ADHESIVE TAPE (ROSINS) 08/17/2005 2 - Rash 9 - Itching ADHESIVE TAPE-SILICONES 16 - Unknown BEE STING 09/24/2015 10 - Anaphylaxis BEE VENOM PROTEIN (HONEY BEE) 10 - Anaphylaxis CORTISONE 08/10/2019 14 - Other: See Comments Comments: Turns red DAKIN'S (SODIUM HYPOCHLORITE SOLU*12/08/2019 16 - Unknown NICKEL 11/24/2019 16 - Unknown VANADIUM 11/24/2019 16 - Unknown Date Reviewed: 05/08/2024 Reviewed by: Lindsey Zuniga - Fully Assessed Reason for Visit: Patient Update [1234] Prescriptions as of 07/10/2024 - HYDROcodone-acetaminophen (NORCO) 5-325 mg per tablet Take 1 tablet by mouth every 6 hours as needed. TAKE 1 TABLET BY MOUTH EVERY 12 HOURS NEEDED FOR PAIN - metoprolol tartrate, short acting, (LOPRESSOR) 25 mg tablet TAKE 1 TABLET BY MOUTH TWICE A DAY - Propafenone HCl (RYTHMOL) 225 mg tablet TAKE 1 TABLET EVERY 8 HOURS - liothyronine (CYTOMEL) 25 mcg tablet Take 25 mcg by mouth once daily. - calcitriol (ROCALTROL) 0.25 mcg capsule TAKE 1 PILL BY MOUTH WEDNESDAY, WEDNESDAY, WEDNESDAY - cephALEXin (KEFLEX) 250 mg capsule Take 250 mg by mouth two times a day. - aspirin, enteric coated (ASPIRIN, ENTERIC COATED) 81 mg EC tablet Take 81 mg by mouth once daily. - inulin (FIBER GUMMIES) 2 gram chew Take 1 Each by mouth as needed. - pantoprazole DR (PROTONIX) 40 mg tablet Take 40 mg by mouth once daily. - liothyronine (CYTOMEL) 5 mcg tablet Take 1 tablet by mouth twice daily. - vit A/vit C/vit E/zinc/copper (ICAPS AREDS ORAL) Take 1 tablet by mouth two times a day. - cholecalciferol, Vitamin D3, (VITAMIN D3) 1,250 mcg (50,000 unit) cap capsule Take 50,000 Units by mouth once every month. - ibuprofen-acetaminophen (ADVIL DUAL ACTION) 125-250 mg tab Take 2 tablets by mouth twice daily as needed. - levothyroxine (SYNTHROID) 112 mcg tablet Take 1 tablet by mouth once daily. - EPINEPHrine (EPIPEN) 0.3 mg/0.3 mL auto-injector Inject 0.3 mg intramuscularly as needed. - multivitamin tablet Take 1 tablet by mouth once daily. 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 Normal [facility] .Auto Diffon 07-05-2024 Basophil, Absolute 0.0 10 3/mcL Normal 0.0-0.2 [facility] Comment on above: Performed By: #### B MP, TSH, FT4, GFR, FT3, VIDH #### [place] [address] #### PTH #### [address] [address] Basophils/100 WBC (Bld) 0.5 % Normal 0.0-2.5 [facility] Comment on above: Performed By: #### B MP, TSH, FT4, GFR, FT3, VIDH #### [place] [address] #### PTH #### [address] [address] Eosinophil, Absolute 0.5 10 3/mcL Normal 0.0-0.7 [facility] Comment on above: Performed By: #### B MP, TSH, FT4, GFR, FT3, VIDH #### [place] [address] #### PTH #### [address] [address] Eosinophils/100 WBC (Bld) 9.6 % High 0.0-7.0 [facility] Comment on above: Performed By: #### B MP, TSH, FT4, GFR, FT3, VIDH #### [place] [address] #### PTH #### [address] [address] Lymphocyte, Absolute 1.3 10 3/mcL Normal 0.9-4.3 [facility] Comment on above: Performed By: #### B MP, TSH, FT4, GFR, FT3, VIDH #### [place] [address] #### PTH #### [address] [address] Lymphocytes/100 WBC (Bld) 25.3 % Normal 20.0-40.0 [facility] Comment on above: Performed By: #### B MP, TSH, FT4, GFR, FT3, VIDH #### [place] [address] #### PTH #### [address] [address] Monocyte, Absolute 0.5 10 3/mcL Normal 0.1-1.4 [facility] Comment on above: Performed By: #### B MP, TSH, FT4, GFR, FT3, VIDH #### [place] [address] #### PTH #### [address] [address] Monocytes/100 WBC (Bld) 10.6 % Normal 2.0-13.0 [facility] Comment on above: Performed By: #### B MP, TSH, FT4, GFR, FT3, VIDH #### [place] [address] #### PTH #### [address] [address] Neutrophils/100 WBC (Bld) 54.0 % Normal 50.0-75.0 [facility] Comment on above: Performed By: #### B MP, TSH, FT4, GFR, FT3, VIDH #### [place] [address] #### PTH #### [address] [address] .GFRon 07-05-2024 Estimated Glomerular Filtration Rate 62 ml/min/1.73sqm Normal [facility] Comment on above: Result Comment: Stages of Chronic Kidney Disease (CKD) Stage Description eGFR(ml/min/1.73 sq.m.) CKD 1 Normal kidney function or >=90 normal kindney function with possible kidney damage (ex. Proteinuria) CKD 2 Kidney damage with mild loss 60-89 of kidney function CKD 3a Mild to moderate loss of kidney 45-59 function CKD 3b Moderate to severe loss of 30-44 of kindey function CKD 4 Severe loss of kidney function 15-29 CKD 5 Kidney failure <15 Note: (go live 2024) the eGFR calculation was updated to the 2020 CKD-EPI creatinine equation without a race factor to calculate the eGFR results. Performed By: #### B MP, TSH, FT4, GFR, FT3, VIDH #### [address] [address] #### PTH #### [address] [address] .MDWon 07-05-2024 Monocyte Distribution Width 18.06 Normal 0.00-20.00 [facility] Comment on above: Result Comment: For ED adult patients suspected of sepsis, MDW<=20.0 does not rule out sepsis or risk of sepsis Performed By: #### B MP, TSH, FT4, GFR, FT3, VIDH #### [address] [address] #### PTH #### [address] [address] .NEUABSon 07-05-2024 Neutrophil, Absolute 2.8 10 3/mcL Normal 2.3-8.1 [facility] Comment on above: Performed By: #### B MP, TSH, FT4, GFR, FT3, VIDH #### [address] [address] #### PTH #### [place] [address] APTTon 07-05-2024 aPTT Coag (Bld) [Time] 28.7 s Normal 25.0-35.0 [facility] Comment on above: Result Comment: For Heparin anticoagulation therapy, the recommended therapeutic range is: 45.4-75.9 seconds. Patients on heparin therapy may have an extreme result. Performed By: #### B MP, TSH, FT4, GFR, FT3, VIDH #### [place] [address] #### PTH #### [address] [address] BMPon 07-05-2024 BUN/Creatinine Ratio 15 ratio Normal 7-27 [facility] Comment on above: Performed By: #### B MP, TSH, FT4, GFR, FT3, VIDH #### [place] [address] #### PTH #### [address] [address] Calcium [Mass/Vol] 9.0 mg/dL Normal 8.4-10.2 [facility] Comment on above: Performed By: #### B MP, TSH, FT4, GFR, FT3, VIDH #### [place] [address] #### PTH #### [address] [address] Chloride [Moles/Vol] 103 mmol/L Normal 98-107 [facility] Comment on above: Performed By: #### B MP, TSH, FT4, GFR, FT3, VIDH #### [address] [address] #### PTH #### [address] [address] CO2 [Moles/Vol] 29 mmol/L Normal 23-31 [facility] Comment on above: Performed By: #### B MP, TSH, FT4, GFR, FT3, VIDH #### [place] [address] #### PTH #### [place] [address] Creatinine [Mass/Vol] 1.00 mg/dL Normal 0.55-1.02 [facility] Comment on above: Result Comment: Test ing performed on Siemens Dimension EXL analyzer using a modified kinetic Tere technique. Performed By: #### B MP, TSH, FT4, GFR, FT3, VIDH #### [place] [address] #### PTH #### [place] [address] Electrolyte Balance 7.0 mEq/L Normal 4.0-15.0 [facility] Comment on above: Performed By: #### B MP, TSH, FT4, GFR, FT3, VIDH #### [place] [address] #### PTH #### [place] [address] Glucose [Mass/Vol] 132 mg/dL High 80-115 [facility] Comment on above: Performed By: #### B MP, TSH, FT4, GFR, FT3, VIDH #### [place] [address] #### PTH #### [place] [address] Potassium [Moles/Vol] 4.3 mmol/L Normal 3.5-5.1 [facility] Comment on above: Performed By: #### B MP, TSH, FT4, GFR, FT3, VIDH #### [place] [address] #### PTH #### [place] [id number] Sodium [Moles/Vol] 139 mmol/L Normal 136-145 [facility] Comment on above: Performed By: #### B MP, TSH, FT4, GFR, FT3, VIDH #### [place] [address] #### PTH #### [place] [address] Urea nitrogen [Mass/Vol] 15 mg/dL Normal 7-18 [facility] Comment on above: Performed By: #### B MP, TSH, FT4, GFR, FT3, VIDH #### [address] [address] #### PTH #### [place] [address] CBCon 07-05-2024 Erythrocyte distribution width (RBC) [Ratio] 15.2 % Normal 11.5-15.5 [facility] Comment on above: Performed By: #### B MP, TSH, FT4, GFR, FT3, VIDH #### [place] [address] #### PTH #### [place] [address] Hematocrit (Bld) [Volume fraction] 37.4 % Normal 34.0-46.0 [facility] Comment on above: Performed By: #### B MP, TSH, FT4, GFR, FT3, VIDH #### [place] [address] #### PTH #### [place] [address] Hgb 12.5 G/dL Normal 12.0-16.0 [facility] Comment on above: Performed By: #### B MP, TSH, FT4, GFR, FT3, VIDH #### [place] [address] #### PTH #### [place] [address] MCH (RBC) [Entitic mass] 30.0 pg Normal 27.0-33.0 [facility] Comment on above: Performed By: #### B MP, TSH, FT4, GFR, FT3, VIDH #### [place] [address] #### PTH #### [place] [address] MCHC 33.5 G/dL Normal 32.0-36.0 [facility] Comment on above: Performed By: #### B MP, TSH, FT4, GFR, FT3, VIDH #### [place] [address] #### PTH #### [address] [address] MCV (RBC) [Entitic vol] 89.6 fL Normal 80.0-99.0 [facility] Comment on above: Performed By: #### B MP, TSH, FT4, GFR, FT3, VIDH #### [place] [address] #### PTH #### [place] [address] Platelet 207 10 3/mcL Normal 150-450 [facility] Comment on above: Performed By: #### B MP, TSH, FT4, GFR, FT3, VIDH #### [place] [address] #### PTH #### [place] [address] Platelet mean volume (Bld) [Entitic vol] 8.9 fL Normal 6.6-10.5 [facility] Comment on above: Performed By: #### B MP, TSH, FT4, GFR, FT3, VIDH #### [place] [address] #### PTH #### [place] [address] RBC 4.17 10 6/mcL Normal 4.10-5.30 [facility] Comment on above: Performed By: #### B MP, TSH, FT4, GFR, FT3, VIDH #### [place] [address] #### PTH #### [place] [address] WBC 5.1 10 3/mcL Normal 4.5-10.8 [facility] Comment on above: Performed By: #### B MP, TSH, FT4, GFR, FT3, VIDH #### [address] [address] #### PTH #### [place] [address] FT4on 07-05-2024 Free T4 [Mass/Vol] 1.32 ng/dL Normal 0.89-1.76 [facility] Comment on above: Order Comment: Order ed by Georgia Hernandez; FT4 being sent to [facility]. 07/05/2024 13:08:07 EDT EH Result Comment: No te - New Reference Range in effect 19 Performed By: #### B MP, TSH, FT4, GFR, FT3, VIDH #### [address] [address] #### PTH #### [place] [address] MGon 07-05-2024 Magnesium [Mass/Vol] 1.7 mg/dL Low 1.8-2.4 [facility] Comment on above: Performed By: #### B MP, TSH, FT4, GFR, FT3, VIDH #### [address] [address] #### PTH #### [place] [address] PBNPon 07-05-2024 Natriuretic peptide B (Bld) [Mass/Vol] 643 pg/mL High 0-125 [facility] Comment on above: Result Comment: NT-p roBNP results of less than 300 pg/mL effectively rules out acute congestive heart failure with 99% negative predictive value. Performed By: #### B MP, TSH, FT4, GFR, FT3, VIDH #### [address] [address] #### PTH #### [place] [address] PROon 07-05-2024 PT Coag (PPP) [Time] 11.1 s Normal 9.0-14.4 [facility] Comment on above: Performed By: #### B MP, TSH, FT4, GFR, FT3, VIDH #### [place] [address] #### PTH #### [place] [address] PT International Ratio 1.0 Normal [facility] Comment on above: Result Comment: The [employer] (CHEST, 1991, 102:312S-25S) recommended therapeutic range for oral anticoagulant therapy is: LOW RISK: Prophylaxis of venous thrombosis INR: 2.0-3.0 Treatment of pulmonary embolism 2.0-3.0 Prevention of systemic embolism 2.0-3.0 HIGH RISK: Mechanical prosthetic valves 2.5-3.5 Performed By: #### B MP, TSH, FT4, GFR, FT3, VIDH #### [place] [address] #### PTH #### [place] [address] TROPHSon 07-05-2024 High Sensitivity Troponin I <4 Normal 051 [facility] Comment on above: Result Comment: High Sensitive Troponin I Reference Ranges: Female: 0-51 ng/L Male: 0-76 ng/L Testing performed on [employer] using a homogeneous sandwich chemiluminescent immunoassay based on [employer] technology. Performed By: #### T ROP #### [place] [address] High Sensitivity Troponin I <[address] Comment on above: Result Comment: High Sensitive Troponin I Reference Ranges: Female: 0-51 ng/L Male: 0-76 ng/L Testing performed on [employer] using a homogeneous sandwich chemiluminescent immunoassay based on [employer] technology. Performed By: #### B MP, TSH, FT4, GFR, FT3, VIDH #### [place] [address] #### PTH #### [place] [address] TSHRon 07-05-2024 TSH Qn 0.10 m[IU]/L Low 0.36-3.74 [facility] Comment on above: Performed By: #### B MP, TSH, FT4, GFR, FT3, VIDH #### [address] [address] #### PTH #### [address] [address] XR CHEST 1 VIEWon 07-05-2024 XR CHEST 1 VIEW ORIGINAL EXAMINATION: ONE XRAY VIEW OF THE CHEST 07/05/2024 12:39 pm COMPARISON: November 20, 2021 HISTORY: ORDERING SYSTEM PROVIDED HISTORY: Reason for Exam: chest pain FINDINGS: The heart is normal in size. Mild vascular congestion is present and there is mild interstitial pulmonary edema. No airspace disease or pleural fluid seen. Minor degenerative changes are noted in the spine. IMPRESSION: Mild CHF. Interpreted by: Sridhar Patel MD Preliminary Report By: Sridhar Patel MD Electronically signed By Sridhar Patel MD Dictated Date: 07/05/2024 12:45:56 PM Prelim Date: 07/05/2024 12:46:32 PM Sign Date: 07/05/2024 12:46:32 PM Ordering Provider: MARGARITA Wagner [facility] .Auto Diffon 06-16-2024 Basophil, Absolute 0.1 10 3/mcL Normal 0.0-0.2 [facility] Comment on above: Performed By: #### B MP, TSH, FT4, GFR, FT3, VIDH #### [address] [address] #### PTH #### [address] [address] Basophils/100 WBC (Bld) 1.5 % Normal 0.0-2.5 [facility] Comment on above: Performed By: #### B MP, TSH, FT4, GFR, FT3, VIDH #### [address] [address] #### PTH #### [address] [address] Eosinophil, Absolute 0.4 10 3/mcL Normal 0.0-0.7 [facility] Comment on above: Performed By: #### B MP, TSH, FT4, GFR, FT3, VIDH #### [place] [address] #### PTH #### [address] [address] Eosinophils/100 WBC (Bld) 5.5 % Normal 0.0-7.0 [facility] Comment on above: Performed By: #### B MP, TSH, FT4, GFR, FT3, VIDH #### [place] [address] #### PTH #### [address] [address] Lymphocyte, Absolute 1.3 10 3/mcL Normal 0.9-4.3 [facility] Comment on above: Performed By: #### B MP, TSH, FT4, GFR, FT3, VIDH #### [place] [address] #### PTH #### [address] [address] Lymphocytes/100 WBC (Bld) 18.2 % Low 20.0-40.0 [facility] Comment on above: Performed By: #### B MP, TSH, FT4, GFR, FT3, VIDH #### [place] [address] #### PTH #### [address] [address] Monocyte, Absolute 0.7 10 3/mcL Normal 0.1-1.4 [facility] Comment on above: Performed By: #### B MP, TSH, FT4, GFR, FT3, VIDH #### [place] [address] #### PTH #### [address] [address] Monocytes/100 WBC (Bld) 10.0 % Normal 2.0-13.0 [facility] Comment on above: Performed By: #### B MP, TSH, FT4, GFR, FT3, VIDH #### [address] [address] #### PTH #### [address] [address] Neutrophils/100 WBC (Bld) 64.8 % Normal 50.0-75.0 [facility] Comment on above: Performed By: #### B MP, TSH, FT4, GFR, FT3, VIDH #### [address] [address] #### PTH #### [address] [address] .GFRon 06-16-2024 Estimated Glomerular Filtration Rate 72 ml/min/1.73sqm Normal [facility] Comment on above: Result Comment: Stages of Chronic Kidney Disease (CKD) Stage Description eGFR(ml/min/1.73 sq.m.) CKD 1 Normal kidney function or >=90 normal kindney function with possible kidney damage (ex. Proteinuria) CKD 2 Kidney damage with mild loss 60-89 of kidney function CKD 3a Mild to moderate loss of kidney 45-59 function CKD 3b Moderate to severe loss of 30-44 of kindey function CKD 4 Severe loss of kidney function 15-29 CKD 5 Kidney failure <15 Note: (go live 2024) the eGFR calculation was updated to the 2020 CKD-EPI creatinine equation without a race factor to calculate the eGFR results. Performed By: #### B MP, TSH, FT4, GFR, FT3, VIDH #### [address] [address] #### PTH #### [address] [address] .NEUABSon 06-16-2024 Neutrophil, Absolute 4.6 10 3/mcL Normal 2.3-8.1 [facility] Comment on above: Performed By: #### B MP, TSH, FT4, GFR, FT3, VIDH #### [address] [address] #### PTH #### [place] [address] ACETAon 06-16-2024 Acetaminophen [Mass/Vol] 9.0 ug/mL Low 10.0-30.0 [facility] Comment on above: Performed By: #### B MP, TSH, FT4, GFR, FT3, VIDH #### [address] [address] #### PTH #### [address] [address] AMOXICILLIN+CLAVULANATE:SUSC :PT:ISOLATE:ORDQN:MICon 06-16-2024 Amoxicillin+Clavulanat e TRUDY [Susc] >100,000 cfu/ml Escherichia coli [facility] Work Phone: Amoxicillin+Clavulanate TRUDY [Susc]on 06-16-2024 Escherichia coli Escherichia coli [facility] Work Phone: CBCon 06-16-2024 Erythrocyte distribution width (RBC) [Ratio] 14.6 % Normal 11.5-15.5 [facility] Comment on above: Performed By: #### B MP, TSH, FT4, GFR, FT3, VIDH #### [place] [address] #### PTH #### [place] [address] Hematocrit (Bld) [Volume fraction] 38.4 % Normal 34.0-46.0 [facility] Comment on above: Performed By: #### B MP, TSH, FT4, GFR, FT3, VIDH #### [place] [address] #### PTH #### [address] [address] Hgb 13.0 G/dL Normal 12.0-16.0 [facility] Comment on above: Performed By: #### B MP, TSH, FT4, GFR, FT3, VIDH #### [place] [id number] #### PTH #### [address] [address] MCH (RBC) [Entitic mass] 30.3 pg Normal 27.0-33.0 [facility] Comment on above: Performed By: #### B MP, TSH, FT4, GFR, FT3, VIDH #### [place] [address] #### PTH #### [place] [address] MCHC 33.9 G/dL Normal 32.0-36.0 [facility] Comment on above: Performed By: #### B MP, TSH, FT4, GFR, FT3, VIDH #### [place] [address] #### PTH #### [place] [address] MCV (RBC) [Entitic vol] 89.3 fL Normal 80.0-99.0 [facility] Comment on above: Performed By: #### B MP, TSH, FT4, GFR, FT3, VIDH #### [place] [address] #### PTH #### [place] [address] Platelet 234 10 3/mcL Normal 150-450 [facility] Comment on above: Performed By: #### B MP, TSH, FT4, GFR, FT3, VIDH #### [place] [address] #### PTH #### [place] [address] Platelet mean volume (Bld) [Entitic vol] 9.4 fL Normal 6.6-10.5 [facility] Comment on above: Performed By: #### B MP, TSH, FT4, GFR, FT3, VIDH #### [place] [address] #### PTH #### [place] [address] RBC 4.30 10 6/mcL Normal 4.10-5.30 [facility] Comment on above: Performed By: #### B MP, TSH, FT4, GFR, FT3, VIDH #### [place] [address] #### PTH #### [place] [address] WBC 7.1 10 3/mcL Normal 4.5-10.8 [facility] Comment on above: Performed By: #### B MP, TSH, FT4, GFR, FT3, VIDH #### [place] [address] #### PTH #### [place] [address] CMPon 06-16-2024 Albumin Level 3.9 G/dL Normal 3.4-4.8 [facility] Comment on above: Performed By: #### B MP, TSH, FT4, GFR, FT3, VIDH #### [place] [address] #### PTH #### [place] [address] Albumin/Globulin [Mass ratio] 1.1 {ratio} Normal 1.1-2.5 [facility] Comment on above: Performed By: #### B MP, TSH, FT4, GFR, FT3, VIDH #### [place] [address] #### PTH #### [place] [address] ALP [Catalytic activity/Vol] 47 U/L Normal 40-135 [facility] Comment on above: Performed By: #### B MP, TSH, FT4, GFR, FT3, VIDH #### [place] [address] #### PTH #### [place] [address] ALT [Catalytic activity/Vol] 17 U/L Normal 14-59 [facility] Comment on above: Performed By: #### B MP, TSH, FT4, GFR, FT3, VIDH #### [place] [address] #### PTH #### [place] [address] AST [Catalytic activity/Vol] 15 U/L Normal 10-40 [facility] Comment on above: Performed By: #### B MP, TSH, FT4, GFR, FT3, VIDH #### [place] [address] #### PTH #### [place] [address] Bili Total 0.5 mg/dL Normal 0.2-1.0 [facility] Comment on above: Result Comment: Use of this assay is not recommended for patients undergoing treatment with eltrombopag due to the potential for falsely elevated results. Performed By: #### B MP, TSH, FT4, GFR, FT3, VIDH #### [place] [address] #### PTH #### [place] [address] BUN/Creatinine Ratio 22 ratio Normal 7-27 [facility] Comment on above: Performed By: #### B MP, TSH, FT4, GFR, FT3, VIDH #### [place] [address] #### PTH #### [place] [address] Calcium [Mass/Vol] 9.5 mg/dL Normal 8.4-10.2 [facility] Comment on above: Performed By: #### B MP, TSH, FT4, GFR, FT3, VIDH #### [place] [address] #### PTH #### [place] [address] Chloride [Moles/Vol] 103 mmol/L Normal 98-107 [facility] Comment on above: Performed By: #### B MP, TSH, FT4, GFR, FT3, VIDH #### [address] [address] #### PTH #### [address] [address] CO2 [Moles/Vol] 31 mmol/L Normal 23-31 [facility] Comment on above: Performed By: #### B MP, TSH, FT4, GFR, FT3, VIDH #### [place] [address] #### PTH #### [place] [address] Creatinine [Mass/Vol] 0.88 mg/dL Normal 0.55-1.02 [facility] Comment on above: Result Comment: Test ing performed on Siemens Dimension EXL analyzer using a modified kinetic Tere technique. Performed By: #### B MP, TSH, FT4, GFR, FT3, VIDH #### [place] [address] #### PTH #### [place] [address] Electrolyte Balance 4.0 mEq/L Normal 4.0-15.0 [facility] Comment on above: Performed By: #### B MP, TSH, FT4, GFR, FT3, VIDH #### [place] [address] #### PTH #### [place] [address] Globulin 3.4 G/dL Normal 1.5-3.8 [facility] Comment on above: Performed By: #### B MP, TSH, FT4, GFR, FT3, VIDH #### [place] [address] #### PTH #### [place] [address] Glucose [Mass/Vol] 84 mg/dL Normal 80-115 [facility] Comment on above: Performed By: #### B MP, TSH, FT4, GFR, FT3, VIDH #### [place] [address] #### PTH #### [address] [address] Potassium [Moles/Vol] 4.5 mmol/L Normal 3.5-5.1 [facility] Comment on above: Performed By: #### B MP, TSH, FT4, GFR, FT3, VIDH #### [address] [address] #### PTH #### [place] [address] Sodium [Moles/Vol] 138 mmol/L Normal 136-145 [facility] Comment on above: Performed By: #### B MP, TSH, FT4, GFR, FT3, VIDH #### [place] [address] #### PTH #### [place] [address] Total Protein 7.3 G/dL Normal 6.4-8.2 [facility] Comment on above: Performed By: #### B MP, TSH, FT4, GFR, FT3, VIDH #### [place] [address] #### PTH #### [place] [address] Urea nitrogen [Mass/Vol] 19 mg/dL High 7-18 [facility] Comment on above: Performed By: #### B MP, TSH, FT4, GFR, FT3, VIDH #### [place] [address] #### PTH #### [place] [address] LABORATORYOrdered By: SYSTEM SYSTEM on 06-16-2024 Acetaminophen [Mass/Vol] 9.0 ug/mL Low 10.0 - 30.0 mcg/mL AO ADM SS Albumin BCP dye [Mass/Vol] 3.9 G/dL Normal 3.4 - 4.8 G/dL AO ADM SS Albumin/Globulin [Mass ratio] 1.1 {ratio} Normal 1.1 - 2.5 ratio AO ADM SS ALP [Catalytic activity/Vol] 47 U/L Normal 40 - 135 U/L AO ADM SS ALT With P-5'-P [Catalytic activity/Vol] 17 U/L Normal 14 - 59 U/L AO ADM SS AST With P-5'-P [Catalytic activity/Vol] 15 U/L Normal 10 - 40 U/L AO ADM SS Basophils (Bld) [#/Vol] 0.1 103/mcL Normal 0.0 - 0.2 10^3/mcL AO Workflow SS Basophils/100 WBC (Bld) 1.5 % Normal 0.0 - 2.5 % AO Workflow SS Bilirubin [Mass/Vol] 0.5 mg/dL Normal 0.2 - 1 .0 mg/dL AO ADM SS Comment on above: Interpretive Data: U se of this assay is not recommended for patients undergoing treatment with eltrombopag due to the potential for falsely elevated results. Calcium [Mass/Vol] 9.5 mg/dL Normal 8.4 - 10. 2 mg/dL AO ADM SS Chloride [Moles/Vol] 103 mmol/L Normal 98 - 10 7 mmol/L AO ADM SS CO2 [Moles/Vol] 31 mmol/L Normal 23 - 31 mmol/L AO ADM SS Creatinine [Mass/Vol] 0.88 mg/dL Normal 0.55 - 1.02 mg/dL AO ADM SS Comment on above: Interpretive Data: T esting performed on Siemens Dimension EXL analyzer using a modified kinetic Tere technique. Electrolyte Balance 4.0 mEq/L Normal 4.0 - 15 .0 mEq/L AO ADM SS Eosinophil, Absolute 0.4 103/mcL Normal 0.0 - 0 .7 10^3/mcL AO Workflow SS Eosinophils/100 WBC (Bld) 5.5 % Normal 0.0 - 7.0 % AO Workflow SS Erythrocyte distribution width (RBC) [Ratio] 14.6 % Normal 11.5 - 15.5 % AO Workflow SS Estimated Glomerular Filtration Rate 72 ml/min/1.73sqm Invalid Interpretation Code AO Chemistry S Comment on above: Interpretive Data: Stages of Chronic Kidney Disease (CKD) Stage Description eGFR(ml/min/1.73 sq.m.) CKD 1 Normal kidney function or >=90 normal kindney function with possible kidney damage (ex. Proteinuria) CKD 2 Kidney damage with mild loss 60-89 of kidney function CKD 3a Mild to moderate loss of kidney 45-59 function CKD 3b Moderate to severe loss of 30-44 of kindey function CKD 4 Severe loss of kidney function 15-29 CKD 5 Kidney failure <15 Note: (go live 2024) the eGFR calculation was updated to the 2020 CKD-EPI creatinine equation without a race factor to calculate the eGFR results. Globulin 3.4 G/dL Normal 1.5 - 3.8 G/dL AO ADM SS Glucose [Mass/Vol] 84 mg/dL Normal 80 - 115 mg/dL AO ADM SS Hematocrit (Bld) [Volume fraction] 38.4 % Normal 34.0 - 46.0 % AO Workflow SS Hemoglobin (Bld) [Mass/Vol] 13.0 G/dL Normal 12.0 - 16.0 G/dL AO Workflow SS Lymphocytes (Bld) [#/Vol] 1.3 103/mcL Normal 0.9 - 4.3 10^3/mcL AO Workflow SS Lymphocytes/100 WBC (Bld) 18.2 % Low 20.0 - 40.0 % AO Workflow SS MCH (RBC) [Entitic mass] 30.3 pg Normal 27.0 - 33.0 pg AO Workflow SS MCHC 33.9 G/dL Normal 32.0 - 36.0 G/dL AO Workflow SS MCV (RBC) [Entitic vol] 89.3 fL Normal 80.0 - 99.0 fL AO Workflow SS Monocytes (Bld) [#/Vol] 0.7 103/mcL Normal 0.1 - 1.4 10^3/mcL AO Workflow SS Monocytes/100 WBC (Bld) 10.0 % Normal 2.0 - 13.0 % AO Workflow SS Neutrophils (Bld) [#/Vol] 4.6 103/mcL Normal 2.3 - 8.1 10^3/mcL AO Workflow SS Neutrophils/100 WBC (Bld) 64.8 % Normal 50.0 - 75.0 % AO Workflow SS Platelet mean volume (Bld) [Entitic vol] 9.4 fL Normal 6.6 - 10.5 fL AO Workflow SS Platelets (Bld) [#/Vol] 234 103/mcL Normal 150 - 450 10^3/mcL AO Workflow SS Potassium [Moles/Vol] 4.5 mmol/L Normal 3.5 - 5.1 mmol/L AO ADM SS Protein [Mass/Vol] 7.3 G/dL Normal 6.4 - 8.2 G/dL AO ADM SS RBC (Bld) [#/Vol] 4.30 106/mcL Normal 4.10 - 5.30 10^6/mcL AO Workflow SS Sodium [Moles/Vol] 138 mmol/L Normal 136 - 145 mmol/L AO ADM SS Urea nitrogen [Mass/Vol] 19 mg/dL High 7 - 18 mg/dL AO ADM SS Urea nitrogen/Creatinine [Mass ratio] 22 ratio Normal 7 - 27 ratio AO ADM SS WBC (Bld) [#/Vol] 7.1 103/mcL Normal 4.5 - 10.8 10^3/mcL AO Workflow SS CNOVSPon 05-08-2024 CNOVSP Visit (SP) Office (H EMAWS) BELLA MORILLO ([id number]) 1955 F Date Time Provider Department 05/08/24 9:30 AM LINDSEY ZUNIGA During your visit today, we recorded the following information about you: Temperature Pulse Blood pressure Weight 97.8 degrees 63/minute 112/67 71.9 kg Lindsey Zuniga 05/10/2024 3:20 PM Signed Progress Note Bella Morillo 1955 Encounter date: 05/08/2024 HPI: Bella Morillo is a 68 year old female with PMHx of afib with PACs, jasen's, osteoporosis, knee replacement, CKD, and anemia. She presents as a referral from her PCP, Dr. Montero for DANITA with inability to tolerate PO iron. Ms. Morillo reports fatigue. Denies any current SOB, CP. She does have a hx of afib with PACs. Not currently on anticoagulation. She denies current overt s/s of bleeding. UTI in November with hematuria. No issues since then. Denies any new aches or pains. She has chronic knee pain 2/2 several knee replacements. She has met with ortho and was given several options for further treatment, including monitoring which she has chosen. Constant bowel issues. Seeing Dr. Hightower at the end of the month for a colonscopy. Last scope 2 years ago. No concerns. Had an EGD several years ago. Started PO iron BID in September, somewhat intermittent. Stopped taking about 2 weeks ago due to significant constipation and occasional upset stomach. Taking hungarian perfecto as needed. Currently trying to get thyroid under better control. Fluctuating TSH. Endorses dry skin, hair loss. Does not eat red meat, does not eat processed meats. Blood transfusion at time of knee surgery, (maybe 4 or five total) Fiber gummies, occasional tums, jose back and body occasionally. No regular NSAID or antiacid use. Mother of colon ca dx age of 73, 6 weeks later. 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 Interval Hx: Pt presents today for follow up and lab review after receiving IV iron. Counts responded well Tolerated IV iron well overall aside from BURRELL. Notes BURRELL following second infusion lasted about a day resolved. No other issues. Saw Dr. Hightower, states no indication for scope. Performed EGD. Last scope was > 4 years ago, [facility] [place] Dr. Berumen. Reviewed would recommend repeat screening colonoscopy with a new DANITA diagnosis. Started on [place] by Dr Montero for knee pain. Denies bleeding or bruising. No changes in bowel or bladder habits. 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 Knee pain Macular degeneration Migraine with aura Osteopenia 2010 PAC (premature atrial contraction) Palpitations Pituitary disorder (HCC) prolactin elevation on reglan Postmenopausal osteoporosis 2015 Thyrotoxicosis without mention of goiter or other cause Uterine fibroid Vitamin D deficiency PAST SURGICAL HISTORY Procedure Laterality Date AFIB ABLATION/PULM VEIN ISOLATION 2005 pulmonary vein ablation for A fib AFIB ABLATION/PULM VEIN ISOLATION 2013 ARTHROTOMY W/MENISCUS REPAIR KNEE Left 1966 Open knee reconstruction ARTHRP KNE CONDYLEANDPLATU MEDIALANDLAT COMPARTMENTS Left x2 ARTHRP KNE CONDYLEANDPLATU MEDIALANDLAT COMPARTMENTS Left 11/08/2019 revision, Dr. Reyes COLONOSCOPY 2009 due in 5 years COLONOSCOPY 2020 wnl due in 3 years FINGER SURGERY HX Right trigger finger KNEE SURGERY HX Left x6 KNEE SURGERY HX Left 1997 LEG SURGERY HX femur fracture SPINE SURGERY HX 2012 TOTAL KNEE REPLACEMENT Right 2020 Current Outpatient Medications Medication Sig Dispense Refill HYDROcodone-acetaminophen (NORCO) 5-325 mg per tablet Take 1 tablet by mouth every 6 hours as needed. TAKE 1 TABLET BY MOUTH EVERY 12 HOURS NEEDED FOR PAIN metoprolol tartrate, short acting, (LOPRESSOR) 25 mg tablet TAKE 1 TABLET BY MOUTH TWICE A DAY 180 tablet 3 Propafenone HCl (RYTHMOL) 225 mg tablet TAKE 1 TABLET EVERY 8 HOURS 270 tablet 3 liothyronine (CYTOMEL) 25 mcg tablet Take 25 mcg by mouth once daily. calcitriol (ROCALTROL) 0.25 mcg capsule TAKE 1 PILL BY MOUTH WEDNESDAY, WEDNESDAY, WEDNESDAY inulin (FIBER GUMMIES) 2 gram chew Take 1 Each by mouth as needed. pantoprazole DR (PROTONIX) 40 mg tablet Take 40 mg by mouth once daily. liothyronine (CYTOMEL) 5 mcg tablet Take 1 tablet by mouth twice daily. 180 tablet 0 vit A/vit C/vit E/zinc/copper (ICAPS AREDS ORAL) Take 1 tablet by mouth two times a day. cholecal (more content not included)... Normal [facility] CBC W Auto Differential pane l (Bld)on 05-04-2024 Basophils (Bld) [#/Vol] 0.11 10*3/uL High <0.11 [facility] Comment on above: Order Comment: Speci men Type: BLOOD SPECIMENOrdering Facility: [facility] Address: [address] [place] [address] Performed By: #### 5 7021-8 ####[facility] [id number] [place] [address] [place] Basophils/100 WBC (Bld) 1.9 % Normal [facility] Comment on above: Order Comment: Speci men Type: BLOOD SPECIMENOrdering Facility: [facility] Address: [address] [place] [address] Performed By: #### 5 7021-8 ####[facility] STEPHIEGurjitERNESTINALIA [id number] [place] [address] [place] Differential cell count method Nom (Bld) Auto Normal [facility] Comment on above: Order Comment: Speci men Type: BLOOD SPECIMENOrdering Facility: [facility] Address: [address] [place] [address] Performed By: #### 5 7021-8 ####[facility] HOSPITALERNESTINALIA [id number] [place] [address] [place] Eosinophils (Bld) [#/Vol] 0.45 10*3/uL Normal <0.46 [facility] Comment on above: Order Comment: Speci men Type: BLOOD SPECIMENOrdering Facility: [facility] Address: [address] [place] [address] Performed By: #### 5 7021-8 ####[facility] HOSPITALDOMOA [id number] [place] [address] [place] Eosinophils/100 WBC (Bld) 7.7 % Normal [facility] Comment on above: Order Comment: Speci men Type: BLOOD SPECIMENOrdering Facility: [facility] Address: [address] [place] [address] Performed By: #### 5 7021-8 ####[facility] HOSPITALERNESTINALIA [id number] [place] [address] [place] Erythrocyte distribution width (RBC) [Ratio] 15.9 % High 11.5-15.0 [facility] Comment on above: Order Comment: Speci men Type: BLOOD SPECIMENOrdering Facility: [facility] Address: [address] [place] [address] Performed By: #### 5 7021-8 ####[facility] H[facility]ITALNCLIA [id number] [place] [address] [place] Hematocrit (Bld) [Volume fraction] 39.0 % Normal 36.0-46.0 [facility] Comment on above: Order Comment: Speci men Type: BLOOD SPECIMENOrdering Facility: [facility] Address: [address] [place] [address] Performed By: #### 5 7021-8 ####[facility]OSPITALNCLIFEPOINT HOSPITALS [id number] [place] [address] [place] Hemoglobin (Bld) [Mass/Vol] 12.5 g/dL Normal 11.5-15.5 [facility] Comment on above: Order Comment: Speci men Type: BLOOD SPECIMENOrdering Facility: [facility] Address: [address] [place] [address] Performed By: #### 5 7021-8 ####[facility]PITALERNESTINALIFEPOINT HOSPITALS [id number] [place] [address] [place] Immature granulocytes (Bld) [#/Vol] 10*3/uL Normal <0.10 [facility] Comment on above: Order Comment: Speci men Type: BLOOD SPECIMENOrdering Facility: [facility] Address: [address] [place] [address] Performed By: #### 5 7021-8 ####[facility] [id number] [place] [address] [place] Immature granulocytes/100 WBC (Bld) 0.2 % Normal [facility] Comment on above: Order Comment: Speci men Type: BLOOD SPECIMENOrdering Facility: [facility] Address: [address] [place] [address] Performed By: #### 5 7021-8 ####[facility] HOSPITALNCLI [id number] [place] [address] [place] Lymphocytes (Bld) [#/Vol] 1.30 10*3/uL Normal 1.00-4.00 [facility] Comment on above: Order Comment: Speci men Type: BLOOD SPECIMENOrdering Facility: [facility] Address: [address] [place] [address] Performed By: #### 5 7021-8 ####[facility] STEPHIESCOOTER [id number] [place] [address] [place] Lymphocytes/100 WBC (Bld) 22.1 % Normal [facility] Comment on above: Order Comment: Speci men Type: BLOOD SPECIMENOrdering Facility: [facility] Address: [address] [place] [address] Performed By: #### 5 7021-8 ####[facility] HOSPITALNCDOC [id number] [place] [address] [place] MCH (RBC) [Entitic mass] 28.8 pg Normal 26.0-34.0 [facility] Comment on above: Order Comment: Speci men Type: BLOOD SPECIMENOrdering Facility: [facility] Address: [address] [place] [address] Performed By: #### 5 7021-8 ####[facility] HOSPITALNCA [id number] [place] [address] [place] MCHC (RBC) [Mass/Vol] 32.1 g/dL Normal 30.5-36.0 [facility] Comment on above: Order Comment: Speci men Type: BLOOD SPECIMENOrdering Facility: [facility] Address: [address] [place] [address] Performed By: #### 5 7021-8 ####[facility]ITALNCLIA [id number] [place] [address] [place] MCV (RBC) [Entitic vol] 89.9 fL Normal 80.0-100.0 [facility] Comment on above: Order Comment: Speci men Type: BLOOD SPECIMENOrdering Facility: [facility] Address: [address] [place] [address] Performed By: #### 5 7021-8 ####[facility] MILLTOWNCLIA [id number] [place] [address] [place] Monocytes (Bld) [#/Vol] 0.55 10*3/uL Normal <0.87 [facility] Comment on above: Order Comment: Speci men Type: BLOOD SPECIMENOrdering Facility: [facility] Address: [address] [place] [address] Performed By: #### 5 7021-8 ####[facility] MIAMISBURGLIA [id number] [place] [address] [place] Monocytes/100 WBC (Bld) 9.4 % Normal [facility] Comment on above: Order Comment: Speci men Type: BLOOD SPECIMENOrdering Facility: [facility] Address: [address] [place] [address] Performed By: #### 5 7021-8 ####[facility] MIAMISBURGLIA [id number] [place] [address] [place] Neutrophils (Bld) [#/Vol] 3.46 10*3/uL Normal 1.45-7.50 [facility] Comment on above: Order Comment: Speci men Type: BLOOD SPECIMENOrdering Facility: [facility] Address: [address] [place] [address] Performed By: #### 5 7021-8 ####[facility]AMISBURGLIA [id number] [place] [address] [place] Neutrophils/100 WBC (Bld) 58.7 % Normal [facility] Comment on above: Order Comment: Speci men Type: BLOOD SPECIMENOrdering Facility: [facility] Address: [address] [place] [address] Performed By: #### 5 7021-8 ####[facility] HOSPITALNCLIA [id number] [place] [address] [place] Nucleated RBC (Bld) [#/Vol] 10*3/uL Normal <0.01 [facility] Comment on above: Order Comment: Speci men Type: BLOOD SPECIMENOrdering Facility: [facility] Address: [address] [place] [address] Performed By: #### 5 7021-8 ####[facility] [id number] [place] [address] [place] Nucleated RBC/100 WBC (Bld) [Ratio] 0.0 /100 WBC Normal [facility] Comment on above: Order Comment: Speci men Type: BLOOD SPECIMENOrdering Facility: [facility] Address: [address] [place] [address] Performed By: #### 5 7021-8 ####[facility]ITALNCLIFEPOINT HOSPITALS [id number] [place] [address] [place] Platelet mean volume (Bld) [Entitic vol] 10.5 fL Normal 9.0-12.7 [facility] Comment on above: Order Comment: Speci men Type: BLOOD SPECIMENOrdering Facility: [facility] Address: [address] [place] [address] Performed By: #### 5 7021-8 ####[facility] [id number] [place] [address] [place] Platelets (Bld) [#/Vol] 235 10*3/uL Normal 150-400 [facility] Comment on above: Order Comment: Speci men Type: BLOOD SPECIMENOrdering Facility: [facility] Address: [address] [place] [address] Performed By: #### 5 7021-8 ####[facility]GL[facility] [id number] [place] [address] [place] RBC (Bld) [#/Vol] 4.34 10*6/uL Normal 3.90-5.20 [facility] Comment on above: Order Comment: Speci men Type: BLOOD SPECIMENOrdering Facility: [facility] Address: [address] [place] [address] Performed By: #### 5 7021-8 ####[facility]ITALNCLIA [id number] [place] [address] [place] WBC (Bld) [#/Vol] 5.88 10*3/uL Normal 3.70-11.00 [facility] Comment on above: Order Comment: Speci men Type: BLOOD SPECIMENOrdering Facility: [facility] Address: [address] [place] [address] Performed By: #### 5 7021-8 ####[facility]ITALNCLIA [id number] [place] [address] [place] Ferritin SerPl-ncon 2024 Ferritin [Mass/Vol] 176.0 ng/mL Normal 14.7-205.1 [facility] Comment on above: Order Comment: Speci men Type: BLOOD SPECIMENOrdering Facility: [facility] Address: [address] [place] [address] Performed By: #### 2 276-4, 55865-0 ####[facility] LABCLIA [id number] [place] [address] [place] Iron and Iron binding capaci ty panelon 05-04-2024 Iron [Mass/Vol] 49 ug/dL Normal 41-186 [facility] Comment on above: Order Comment: Speci men Type: BLOOD SPECIMENOrdering Facility: [facility] Address: [address] [place] [address] Performed By: #### 2 276-4, 19642-4 ####[facility] LABCLIA [id number] [place] [address] [place] Iron binding capacity [Mass/Vol] 259 ug/dL Normal 232-386 [facility] Comment on above: Order Comment: Speci men Type: BLOOD SPECIMENOrdering Facility: [facility] Address: [address] [place] [address] Performed By: #### 2 276-4, 06594-0 ####[facility] LABCLIA [id number] [place] [address] [place] Iron/TIBC [Molar ratio] 18.9 % Normal 15.0-57.0 [facility] Comment on above: Order Comment: Speci men Type: BLOOD SPECIMENOrdering Facility: [facility] Address: [address] [place] [address] Performed By: #### 2 276-4, 52343-3 ####[facility] LABCLIA [id number] [place] [address] [place] .Auto Diffon 05-03-2024 Basophil, Absolute 0.1 10 3/mcL Normal 0.0-0.2 [facility] Comment on above: Performed By: #### B MP, TSH, FT4, GFR, FT3, VIDH #### [address] [address] #### PTH #### [address] [address] Basophils/100 WBC (Bld) 2.3 % Normal 0.0-2.5 [facility] Comment on above: Performed By: #### B MP, TSH, FT4, GFR, FT3, VIDH #### [address] [address] #### PTH #### [address] [address] Eosinophil, Absolute 0.3 10 3/mcL Normal 0.0-0.7 [facility] Comment on above: Performed By: #### B MP, TSH, FT4, GFR, FT3, VIDH #### [address] [address] #### PTH #### [address] [address] Eosinophils/100 WBC (Bld) 7.6 % High 0.0-7.0 [facility] Comment on above: Performed By: #### B MP, TSH, FT4, GFR, FT3, VIDH #### [address] [address] #### PTH #### [address] [address] Lymphocyte, Absolute 1.1 10 3/mcL Normal 0.9-4.3 [facility] Comment on above: Performed By: #### B MP, TSH, FT4, GFR, FT3, VIDH #### [place] [address] #### PTH #### [address] [address] Lymphocytes/100 WBC (Bld) 24.4 % Normal 20.0-40.0 [facility] Comment on above: Performed By: #### B MP, TSH, FT4, GFR, FT3, VIDH #### [place] [address] #### PTH #### [address] [address] Monocyte, Absolute 0.5 10 3/mcL Normal 0.1-1.4 [facility] Comment on above: Performed By: #### B MP, TSH, FT4, GFR, FT3, VIDH #### [place] [address] #### PTH #### [address] [address] Monocytes/100 WBC (Bld) 9.8 % Normal 2.0-13.0 [facility] Comment on above: Performed By: #### B MP, TSH, FT4, GFR, FT3, VIDH #### [place] [address] #### PTH #### [address] [address] Neutrophils/100 WBC (Bld) 55.9 % Normal 50.0-75.0 [facility] Comment on above: Performed By: #### B MP, TSH, FT4, GFR, FT3, VIDH #### [address] [address] #### PTH #### [address] [address] .GFRon 05-03-2024 GFR 83 ml/min/1.73sqm [facility] Comment on above: Result Comment: GFR Population mean for , Non- Americans Ages 20-29 = 116 mL/min/1.73 sq.m. Ages 30-39 = 107 mL/min/1.73 sq.m. Ages 40-49 = 99 mL/min/1.73 sq.m. Ages 50-59 = 93 mL/min/1.73 sq.m. Ages 60-69 = 85 mL/min/1.73 sq.m. Ages 70+ = 75 mL/min/1.73 sq.m. Chronic Kidney Disease: Less than 60 mL/min/1.73 square meters End Stage Renal Disease: Less than 15 mL/min/1.73 square meters Performed By: #### B MP, TSH, FT4, GFR, FT3, VIDH #### [address] [address] #### PTH #### [address] [address] GFR Non- 69 ml/min/1.73sqm [facility] Comment on above: Result Comment: GFR Population mean for , Non- Americans Ages 20-29 = 116 mL/min/1.73 sq.m. Ages 30-39 = 107 mL/min/1.73 sq.m. Ages 40-49 = 99 mL/min/1.73 sq.m. Ages 50-59 = 93 mL/min/1.73 sq.m. Ages 60-69 = 85 mL/min/1.73 sq.m. Ages 70+ = 75 mL/min/1.73 sq.m. Chronic Kidney Disease: Less than 60 mL/min/1.73 square meters End Stage Renal Disease: Less than 15 mL/min/1.73 square meters Performed By: #### B MP, TSH, FT4, GFR, FT3, VIDH #### [address] [address] #### PTH #### [address] [address] .NEUABSon 05-03-2024 Neutrophil, Absolute 2.6 10 3/mcL Normal 2.3-8.1 [facility] Comment on above: Performed By: #### B MP, TSH, FT4, GFR, FT3, VIDH #### [place] [address] #### PTH #### [place] [address] A1Con 05-03-2024 Glucose [Mass/Vol] 117 mg/dL Normal [facility] Comment on above: Result Comment: Valarie mated Average Glucose calculated by equation ((28.7xA1C)-46.7) Estimated average glucose (eAG) is a calculated value from Hemoglobin A1C and is chemical sales representative of the average blood glucose level in the last 2-3 month period. Normal range: less than 114 mg/dL Performed By: #### B MP, TSH, FT4, GFR, FT3, VIDH #### [place] [address] #### PTH #### [place] [address] HbA1c (Bld) [Mass fraction] 5.7 % Normal 4.3-6.4 [facility] Comment on above: Performed By: #### B MP, TSH, FT4, GFR, FT3, VIDH #### [place] [address] #### PTH #### [place] [address] CBCon 05-03-2024 Erythrocyte distribution width (RBC) [Ratio] 17.0 % High 11.5-15.5 [facility] Comment on above: Performed By: #### B MP, TSH, FT4, GFR, FT3, VIDH #### [place] [address] #### PTH #### [place] [address] Hematocrit (Bld) [Volume fraction] 39.0 % Normal 34.0-46.0 [facility] Comment on above: Performed By: #### B MP, TSH, FT4, GFR, FT3, VIDH #### [place] [address] #### PTH #### [place] [address] Hgb 12.9 G/dL Normal 12.0-16.0 [facility] Comment on above: Performed By: #### B MP, TSH, FT4, GFR, FT3, VIDH #### [place] [address] #### PTH #### [place] [address] MCH (RBC) [Entitic mass] 29.4 pg Normal 27.0-33.0 [facility] Comment on above: Performed By: #### B MP, TSH, FT4, GFR, FT3, VIDH #### [place] [address] #### PTH #### [place] [address] MCHC 33.1 G/dL Normal 32.0-36.0 [facility] Comment on above: Performed By: #### B MP, TSH, FT4, GFR, FT3, VIDH #### [place] [address] #### PTH #### [place] [address] MCV (RBC) [Entitic vol] 88.7 fL Normal 80.0-99.0 [facility] Comment on above: Performed By: #### B MP, TSH, FT4, GFR, FT3, VIDH #### [place] [address] #### PTH #### [address] [address] Platelet 224 10 3/mcL Normal 150-450 [facility] Comment on above: Performed By: #### B MP, TSH, FT4, GFR, FT3, VIDH #### [address] [address] #### PTH #### [place] [address] Platelet mean volume (Bld) [Entitic vol] 9.4 fL Normal 6.6-10.5 [facility] Comment on above: Performed By: #### B MP, TSH, FT4, GFR, FT3, VIDH #### [place] [address] #### PTH #### [place] [address] RBC 4.40 10 6/mcL Normal 4.10-5.30 [facility] Comment on above: Performed By: #### B MP, TSH, FT4, GFR, FT3, VIDH #### [place] [address] #### PTH #### [place] [address] WBC 4.6 10 3/mcL Normal 4.5-10.8 [facility] Comment on above: Performed By: #### B MP, TSH, FT4, GFR, FT3, VIDH #### [place] [address] #### PTH #### [place] [address] CMPon 05-03-2024 Albumin Level 3.6 G/dL Normal 3.4-4.8 [facility] Comment on above: Performed By: #### B MP, TSH, FT4, GFR, FT3, VIDH #### [place] [address] #### PTH #### [place] [address] Albumin/Globulin [Mass ratio] 1.1 {ratio} Normal 1.1-2.5 [facility] Comment on above: Performed By: #### B MP, TSH, FT4, GFR, FT3, VIDH #### [place] [address] #### PTH #### [place] [address] ALP [Catalytic activity/Vol] 48 U/L Normal 40-135 [facility] Comment on above: Performed By: #### B MP, TSH, FT4, GFR, FT3, VIDH #### [place] [address] #### PTH #### [place] [address] ALT [Catalytic activity/Vol] 19 U/L Normal 14-59 [facility] Comment on above: Performed By: #### B MP, TSH, FT4, GFR, FT3, VIDH #### [place] [address] #### PTH #### [place] [address] AST [Catalytic activity/Vol] 16 U/L Normal 10-40 [facility] Comment on above: Performed By: #### B MP, TSH, FT4, GFR, FT3, VIDH #### [place] [address] #### PTH #### [place] [address] Bili Total 0.6 mg/dL Normal 0.2-1.0 [facility] Comment on above: Result Comment: Use of this assay is not recommended for patients undergoing treatment with eltrombopag due to the potential for falsely elevated results. Performed By: #### B MP, TSH, FT4, GFR, FT3, VIDH #### [place] [address] #### PTH #### [place] [address] BUN/Creatinine Ratio 12 ratio Normal 7-27 [facility] Comment on above: Performed By: #### B MP, TSH, FT4, GFR, FT3, VIDH #### [place] [address] #### PTH #### [address] [address] Calcium [Mass/Vol] 10.0 mg/dL Normal 8.4-10.2 [facility] Comment on above: Performed By: #### B MP, TSH, FT4, GFR, FT3, VIDH #### [place] [address] #### PTH #### [address] [address] Chloride [Moles/Vol] 104 mmol/L Normal 98-107 [facility] Comment on above: Performed By: #### B MP, TSH, FT4, GFR, FT3, VIDH #### [place] [address] #### PTH #### [address] [address] CO2 [Moles/Vol] 30 mmol/L Normal 23-31 [facility] Comment on above: Performed By: #### B MP, TSH, FT4, GFR, FT3, VIDH #### [place] [address] #### PTH #### [address] [address] Creatinine [Mass/Vol] 0.83 mg/dL Normal 0.55-1.02 [facility] Comment on above: Result Comment: Test ing performed on Siemens Dimension EXL analyzer using a modified kinetic Tere technique. Performed By: #### B MP, TSH, FT4, GFR, FT3, VIDH #### [place] [address] #### PTH #### [address] [address] Electrolyte Balance 8.0 mEq/L Normal 4.0-15.0 [facility] Comment on above: Performed By: #### B MP, TSH, FT4, GFR, FT3, VIDH #### [address] [address] #### PTH #### [address] [address] Globulin 3.3 G/dL Normal [facility] Comment on above: Performed By: #### B MP, TSH, FT4, GFR, FT3, VIDH #### [place] [address] #### PTH #### [address] [address] Glucose [Mass/Vol] 93 mg/dL Normal 80-115 [facility] Comment on above: Performed By: #### B MP, TSH, FT4, GFR, FT3, VIDH #### [place] [address] #### PTH #### [place] [address] Potassium [Moles/Vol] 5.1 mmol/L Normal 3.5-5.1 [facility] Comment on above: Performed By: #### B MP, TSH, FT4, GFR, FT3, VIDH #### [place] [address] #### PTH #### [place] [address] Sodium [Moles/Vol] 142 mmol/L Normal 136-145 [facility] Comment on above: Performed By: #### B MP, TSH, FT4, GFR, FT3, VIDH #### [place] [address] #### PTH #### [address] [address] Total Protein 6.9 G/dL Normal 6.4-8.2 [facility] Comment on above: Performed By: #### B MP, TSH, FT4, GFR, FT3, VIDH #### [place] [id number] #### PTH #### [place] [address] Urea nitrogen [Mass/Vol] 10 mg/dL Normal 7-18 [facility] Comment on above: Performed By: #### B MP, TSH, FT4, GFR, FT3, VIDH #### [address] [address] #### PTH #### [place] [address] FT3on 05-03-2024 Free T3 [Mass/Vol] 2.57 pg/mL Normal 2.30-4.00 [facility] Comment on above: Performed By: #### B MP, TSH, FT4, GFR, FT3, VIDH #### [address] [address] #### PTH #### [place] [address] FT4on 05-03-2024 Free T4 [Mass/Vol] 0.96 ng/dL Normal 0.76-1.46 [facility] Comment on above: Performed By: #### B MP, TSH, FT4, GFR, FT3, VIDH #### [place] [address] #### PTH #### [place] [address] LABORATORYOrdered By: SYSTEM SYSTEM on 05-03-2024 Albumin BCP dye [Mass/Vol] 3.6 G/dL Normal 3.4 - 4.8 G/dL AO ADM SS Albumin/Globulin [Mass ratio] 1.1 {ratio} Normal 1.1 - 2.5 ratio AO ADM SS ALP [Catalytic activity/Vol] 48 U/L Normal 40 - 135 U/L AO ADM SS ALT With P-5'-P [Catalytic activity/Vol] 19 U/L Normal 14 - 59 U/L AO ADM SS AST With P-5'-P [Catalytic activity/Vol] 16 U/L Normal 10 - 40 U/L AO ADM SS Basophils (Bld) [#/Vol] 0.1 103/mcL Normal 0.0 - 0.2 10^3/mcL AO Workflow SS Basophils/100 WBC (Bld) 2.3 % Normal 0.0 - 2.5 % AO Workflow SS Bilirubin [Mass/Vol] 0.6 mg/dL Normal 0.2 - 1 .0 mg/dL AO ADM SS Comment on above: Interpretive Data: U se of this assay is not recommended for patients undergoing treatment with eltrombopag due to the potential for falsely elevated results. Calcium [Mass/Vol] 10.0 mg/dL Normal 8.4 - 10. 2 mg/dL AO ADM SS Chloride [Moles/Vol] 104 mmol/L Normal 98 - 10 7 mmol/L AO ADM SS CO2 [Moles/Vol] 30 mmol/L Normal 23 - 31 mmol/L AO ADM SS Creatinine [Mass/Vol] 0.83 mg/dL Normal 0.55 - 1.02 mg/dL AO ADM SS Comment on above: Interpretive Data: T esting performed on Siemens Dimension EXL analyzer using a modified kinetic Tere technique. Electrolyte Balance 8.0 mEq/L Normal 4.0 - 15 .0 mEq/L AO ADM SS Eosinophil, Absolute 0.3 103/mcL Normal 0.0 - 0 .7 10^3/mcL AO Workflow SS Eosinophils/100 WBC (Bld) 7.6 % High 0.0 - 7.0 % AO Workflow SS Erythrocyte distribution width (RBC) [Ratio] 17.0 % High 11.5 - 15.5 % AO Workflow SS GFR/1.73 sq M.predicted among blacks MDRD (S/P/Bld) [Vol rate/Area] 83 ml/min/1.73sqm Invalid Interpretation Code AO Chemistry S Comment on above: Interpretive Data: GFR Population mean for , Non- Americans Ages 20-29 = 116 mL/min/1.73 sq.m. Ages 30-39 = 107 mL/min/1.73 sq.m. Ages 40-49 = 99 mL/min/1.73 sq.m. Ages 50-59 = 93 mL/min/1.73 sq.m. Ages 60-69 = 85 mL/min/1.73 sq.m. Ages 70+ = 75 mL/min/1.73 sq.m. Chronic Kidney Disease: Less than 60 mL/min/1.73 square meters End Stage Renal Disease: Less than 15 mL/min/1.73 square meters GFR/1.73 sq M.predicted among non-blacks MDRD (S/P/Bld) [Vol rate/Area] 69 ml/min/1.73sqm Invalid Interpretation Code AO Chemistry S Comment on above: Interpretive Data: GFR Population mean for , Non- Americans Ages 20-29 = 116 mL/min/1.73 sq.m. Ages 30-39 = 107 mL/min/1.73 sq.m. Ages 40-49 = 99 mL/min/1.73 sq.m. Ages 50-59 = 93 mL/min/1.73 sq.m. Ages 60-69 = 85 mL/min/1.73 sq.m. Ages 70+ = 75 mL/min/1.73 sq.m. Chronic Kidney Disease: Less than 60 mL/min/1.73 square meters End Stage Renal Disease: Less than 15 mL/min/1.73 square meters Globulin 3.3 G/dL Invalid Interpretation Code AO ADM SS Glucose [Mass/Vol] 117 mg/dL Invalid Interpretation Code AO Chemistry S Comment on above: Interpretive Data: E stimated average glucose (eAG) is a calculated value from Hemoglobin A1C and is chemical sales representative of the average blood glucose level in the last 2-3 month period. Normal range: less than 114 mg/dL Glucose [Mass/Vol] 93 mg/dL Normal 80 - 115 mg/dL AO ADM SS HbA1c (Bld) [Mass fraction] 5.7 % Normal 4.3 - 6.4 % AO ADM SS Hematocrit (Bld) [Volume fraction] 39.0 % Normal 34.0 - 46.0 % AO Workflow SS Hemoglobin (Bld) [Mass/Vol] 12.9 G/dL Normal 12.0 - 16.0 G/dL AO Workflow SS Lymphocytes (Bld) [#/Vol] 1.1 103/mcL Normal 0.9 - 4.3 10^3/mcL AO Workflow SS Lymphocytes/100 WBC (Bld) 24.4 % Normal 20.0 - 40.0 % AO Workflow SS MCH (RBC) [Entitic mass] 29.4 pg Normal 27.0 - 33.0 pg AO Workflow SS MCHC 33.1 G/dL Normal 32.0 - 36.0 G/dL AO Workflow SS MCV (RBC) [Entitic vol] 88.7 fL Normal 80.0 - 99.0 fL AO Workflow SS Monocytes (Bld) [#/Vol] 0.5 103/mcL Normal 0.1 - 1.4 10^3/mcL AO Workflow SS Monocytes/100 WBC (Bld) 9.8 % Normal 2.0 - 13.0 % AO Workflow SS Neutrophils (Bld) [#/Vol] 2.6 103/mcL Normal 2.3 - 8.1 10^3/mcL AO Workflow SS Neutrophils/100 WBC (Bld) 55.9 % Normal 50.0 - 75.0 % AO Workflow SS Parathyrin.intact [Mass/Vol] 69.4 pg/mL Normal 18.5 - 88.0 pg/mL AH ADM SS Platelet mean volume (Bld) [Entitic vol] 9.4 fL Normal 6.6 - 10.5 fL AO Workflow SS Platelets (Bld) [#/Vol] 224 103/mcL Normal 150 - 450 10^3/mcL AO Workflow SS Potassium [Moles/Vol] 5.1 mmol/L Normal 3.5 - 5.1 mmol/L AO ADM SS Protein [Mass/Vol] 6.9 G/dL Normal 6.4 - 8.2 G/dL AO ADM SS RBC (Bld) [#/Vol] 4.40 106/mcL Normal 4.10 - 5.30 10^6/mcL AO Workflow SS Sodium [Moles/Vol] 142 mmol/L Normal 136 - 145 mmol/L AO ADM SS Urea nitrogen [Mass/Vol] 10 mg/dL Normal 7 - 18 mg/dL AO ADM SS Urea nitrogen/Creatinine [Mass ratio] 12 ratio Normal 7 - 27 ratio AO ADM SS WBC (Bld) [#/Vol] 4.6 103/mcL Normal 4.5 - 10.8 10^3/mcL AO Workflow SS 25-hydroxyvitamin D3 [Mass/Vol] 44.0 ng/mL Invalid Interpretation Code AO ADM SS Comment on above: Interpretive Data: I nterpretive Values Based on Total 25(OH) Vitamin D: Deficient <20 ng/mL Insufficient 20 - <30 ng/mL Sufficient 30-100 ng/mL Free T3 [Mass/Vol] 2.57 pg/mL Normal 2.30 - 4.00 pg/mL AO ADM SS Free T4 [Mass/Vol] 0.96 ng/dL Normal 0.76 - 1.46 ng/dL AO ADM SS TSH mcIU/mL Low 0.36 - 3.74 mcIU/mL AO ADM SS LABORATORYOrdered By: Jessie Kinsey on 05-03-2024 Cholesterol [Mass/Vol] 198 mg/dL Normal 0 - 2 00 mg/dL AO ADM SS Comment on above: Interpretive Data: C holesterol Reference Interval: Less than 200 Desirable 200-239 Borderline high risk 240 and above High risk Cholesterol in HDL [Mass/Vol] 79 mg/dL High 40 - 60 mg/dL AO ADM SS Cholesterol in LDL [Mass/Vol] 108 mg/dL Normal 0 - 130 mg/dL AO ADM SS Triglyceride [Mass/Vol] 57 mg/dL Normal 0 - 150 mg/dL AO ADM SS Comment on above: Interpretive Data: T riglyceride Reference Interval: Less than 150 Normal 150-199 Borderline high risk 200-499 High risk 500 or higher Very high risk LIPIDon 05-03-2024 Cholesterol [Mass/Vol] 198 mg/dL Normal 0-200 [facility] Comment on above: Result Comment: Chol esterol Reference Interval: Less than 200 Desirable 200-239 Borderline high risk 240 and above High risk Performed By: #### B MP, TSH, FT4, GFR, FT3, VIDH #### [address] [address] #### PTH #### [address] [address] Cholesterol in HDL [Mass/Vol] 79 mg/dL High 40-60 [facility] Comment on above: Performed By: #### B MP, TSH, FT4, GFR, FT3, VIDH #### [address] [address] #### PTH #### [address] [address] Cholesterol in LDL [Mass/Vol] 108 mg/dL Normal 0-130 [facility] Comment on above: Performed By: #### B MP, TSH, FT4, GFR, FT3, VIDH #### [address] [address] #### PTH #### [place] [address] Triglyceride [Mass/Vol] 57 mg/dL Normal 0-150 [facility] Comment on above: Result Comment: Trig lyceride Reference Interval: Less than 150 Normal 150-199 Borderline high risk 200-499 High risk 500 or higher Very high risk Performed By: #### B MP, TSH, FT4, GFR, FT3, VIDH #### [address] [address] #### PTH #### [place] [address] PTHon 05-03-2024 PTH, Intact 69.4 pg/mL Normal 18.5-88.0 [facility] Comment on above: Performed By: #### B MP, TSH, FT4, GFR, FT3, VIDH #### [address] [address] #### PTH #### [place] [address] TSHon 05-03-2024 TSH Qn m[IU]/L Low 0.36-3.74 [facility] Comment on above: Performed By: #### B MP, TSH, FT4, GFR, FT3, VIDH #### [address] [address] #### PTH #### [place] [address] VIDHon 05-03-2024 Vit. D 25-Hydroxy 44.0 ng/mL Normal [facility] Comment on above: Result Comment: Inte rpretive Values Based on Total 25(OH) Vitamin D: Deficient <20 ng/mL Insufficient 20 - <30 ng/mL Sufficient 30-100 ng/mL Performed By: #### B MP, TSH, FT4, GFR, FT3, VIDH #### [address] [address] #### PTH #### [place] [address] Final Surgical Pathology Rep [facility] 03-07-2024 Final Surgical Pathology Report . Pathology Reports Accession: Collected Date/Time: Received Date/Time: Pathologist: [id number] 03/06/2024 11:55 EST 03/06/2024 13:51 MD RAVEN VAN Final Surgical Pathology Report DIAGNOSIS: DUODENUM, BIOPSY: - MILD PEPTIC DUODENITIS - NEGATIVE FOR CELIAC DISEASE CLINICAL INFORMATION: Procedure: ESOPHAGOGASTRODUODENOSCOPY WITH BX Preoperative diagnosis: IRON DEFICIENCY ANEMIA Postoperative diagnosis: IRON DEFICIENCY ANEMIA SPECIMEN: A DUODENAL BX R/O CELIAC DISEASE GROSS DESCRIPTION: All parts labelled with patient name and [id number] Received in formalin labeled duodenal biopsy are multiple garcía-pink tissue fragments aggregating 1.1 x 0.2 x 0.1 cm greatest dimension. Smallest fragments may not survive processing. TS-1 Marci Martinez, Grossing Supervisor Accounting Clerks/ Dr. Satish Westfall, Pathologist Performed by Marci Martinez MICROSCOPIC DESCRIPTION: The microscopic examination is performed, except in the case of Gross Only. Electronically Signed by Pathology Report verified by [facility] RAVEN SULLIVAN MD Sign out Date: 03/07/2024 08:22 Performing Lab: [address] Pathology Dept Disclaimer If ancillary studies were utilized, the following Laboratory Developed Test (LDT) disclaimer will apply: Under CLIA requirements, [facility] Pathology Laboratory is qualified to perform high complexity testing. For all ancillary stains, positive and negative controls stain appropriately. Performance characteristics of immunohistochemical and chromogenic in-situ hybridization tests have been determined by [facility]ology Laboratory. These tests are used for clinical purposes, They should not be regarded as investigational or for research. Normal [facility] CNOVSPon 02-28-2024 CNOVSP Visit (SP) Office (H EMAWS) BELLA MORILLO ([id number]) 1955 F Date Time Provider Department 11/4/24 9:30 AM TREATMENT RM 15 [address] [facility] WSTRHEMAWS During your visit today, we recorded the following information about you: Temperature Pulse Blood pressure Weight 98.2 degrees 63/minute 120/73 71.2 kg Referring Provider: LINDSEY ZUNIGA [[id number]] Allergies As of Date: 02/28/2024 Noted Allergy Reaction BEES 04/03/2004 10 - Anaphylaxis CODEINE 06/21/2006 5 - Intolerance Comments: migraines ADHESIVE TAPE (ROSINS) 08/17/2005 2 - Rash 9 - Itching ADHESIVE TAPE-SILICONES 16 - Unknown BEE STING 09/24/2015 10 - Anaphylaxis BEE VENOM PROTEIN (HONEY BEE) 10 - Anaphylaxis CORTISONE 08/10/2019 14 - Other: See Comments Comments: Turns red DAKIN'S (SODIUM HYPOCHLORITE SOLU*12/08/2019 16 - Unknown NICKEL 11/24/2019 16 - Unknown VANADIUM 11/24/2019 16 - Unknown Date Reviewed: 02/28/2024 Reviewed by: Mera Egan MA - Fully Assessed Reason for Visit: Non-Chemotherapy Treatment [795] Primary Visit Diagnosis:Iron 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 dietary iron intake [D50.8] Order(s):TREATMENT PARAMETER-NOT NEEDED [[id number]] Order #: [id number]: 1 BCN NURSING COMMUNICATION [[id number]] Order #: [id number]: 1 STANDING BCN NURSING COMMUNICATION [[id number]] Order #: [id number]: 1 STANDING [] iron sucrose 200 mg injection (VENOFER)Disp: Rfl: NaCl 0.9% iv infusionDisp: Rfl: diphenhydrAMINE 50 mg injection (BENADRYL)Disp: Rfl: hydrocortisone sodium succinate (PF) 100 mg injection (Solu-CORTEF)Disp: Rfl: EPINEPHrine HCl (PF) 1 mg/mL (1 mL) 0.3 mg injectionDisp: Rfl: BCN NURSING COMMUNICATION [[id number]] Order #: [id number]: 1 STANDING Prescriptions as of 02/28/2024 - Propafenone HCl (RYTHMOL) 225 mg tablet TAKE 1 TABLET EVERY 8 HOURS - liothyronine (CYTOMEL) 25 mcg tablet Take 25 mcg by mouth once daily. - calcitriol (ROCALTROL) 0.25 mcg capsule TAKE 1 PILL BY MOUTH WEDNESDAY, WEDNESDAY, WEDNESDAY - cephALEXin (KEFLEX) 250 mg capsule Take 250 mg by mouth two times a day. - aspirin, enteric coated (ASPIRIN, ENTERIC COATED) 81 mg EC tablet Take 81 mg by mouth once daily. - metoprolol tartrate, short acting, (LOPRESSOR) 25 mg tablet take 1 tablet by mouth twice a day - inulin (FIBER GUMMIES) 2 gram chew Take 1 Each by mouth as needed. - pantoprazole DR (PROTONIX) 40 mg tablet Take 40 mg by mouth twice daily. - liothyronine (CYTOMEL) 5 mcg tablet Take 1 tablet by mouth twice daily. - vit A/vit C/vit E/zinc/copper (ICAPS AREDS ORAL) Take 1 tablet by mouth two times a day. - cholecalciferol, Vitamin D3, (VITAMIN D3) 1,250 mcg (50,000 unit) cap capsule Take 50,000 Units by mouth once every month. - ibuprofen-acetaminophen (ADVIL DUAL ACTION) 125-250 mg tab Take 2 tablets by mouth twice daily as needed. - levothyroxine (SYNTHROID) 112 mcg tablet Take 1 tablet by mouth once daily. - EPINEPHrine (EPIPEN) 0.3 mg/0.3 mL auto-injector Inject 0.3 mg intramuscularly as needed. - multivitamin tablet Take 1 tablet by mouth once daily. Facility-Administered Medications as of 02/28/2024 - NaCl 0.9% iv infusion - diphenhydrAMINE 50 mg injection (BENADRYL) - hydrocortisone sodium succinate (PF) 100 mg injection (Solu-CORTEF) - EPINEPHrine HCl (PF) 1 mg/mL (1 mL) 0.3 mg injection Medication notes this encounter LIOTHYRONINE 5 MCG TABLET >> Mera Egan MA 02/28/2024 9:20 AM >> MERA EGAN WedFeb 28, 2024 9:20 AM Problem List As Of Date 02/28/2024 Noted Resolved Unspecified hypothyroidism [E03.9] 10/02/2002 10/04/2015 Paroxysmal atrial fibrillation (HCC) [I48.0] 06/21/2006 PAIN JOINT, KNEE [M25.569] 06/07/2008 STIFF JOINT LOWER LEG [M25.669] 06/07/2008 Follow-up examination, following other surgery *07/16/2008 10/04/2015 Hypothyroidism [E03.9] Unspecified vitamin D deficiency [E55.9] 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 [* Palpitations [R00.2] PAC (premature atrial contraction) [I49.1] Essential hypertension, benign [I10] 08/09/2018 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0] 06/27/2019 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 Normal [facility] CNOVSPon 02-24-2024 CNOVSP Visit (SP) Office (H EMAWS) BELLA MORILLO ([id number]) 1955 F Date Time Provider Department 02/24/24 9:00 AM TREATMENT RM 16 [address] [facility] During your visit today, we recorded the following information about you: Temperature Pulse Respiration Blood pressure 97.9 degrees 62/minute 18/minute 129/76 Referring Provider: LINDSEY ZUNIGA [[id number]] Allergies As of Date: 02/24/2024 Noted Allergy Reaction BEES 04/03/2004 10 - Anaphylaxis CODEINE 06/21/2006 5 - Intolerance Comments: migraines ADHESIVE TAPE (ROSINS) 08/17/2005 2 - Rash 9 - Itching ADHESIVE TAPE-SILICONES 16 - Unknown BEE STING 09/24/2015 10 - Anaphylaxis BEE VENOM PROTEIN (HONEY BEE) 10 - Anaphylaxis CORTISONE 08/10/2019 14 - Other: See Comments Comments: Turns red DAKIN'S (SODIUM HYPOCHLORITE SOLU*12/08/2019 16 - Unknown NICKEL 11/24/2019 16 - Unknown VANADIUM 11/24/2019 16 - Unknown Date Reviewed: 02/24/2024 Reviewed by: Meek Turk RN - Fully Assessed Reason for Visit: Non-Chemotherapy Treatment [795] Primary Visit Diagnosis:Iron 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 dietary iron intake [D50.8] Order(s):TREATMENT PARAMETER-NOT NEEDED [[id number]] Order #: [id number]: 1 BCN NURSING COMMUNICATION [[id number]] Order #: [id number]: 1 STANDING BCN NURSING COMMUNICATION [[id number]] Order #: [id number]: 1 STANDING [] iron sucrose 200 mg injection (VENOFER)Disp: Rfl: NaCl 0.9% iv infusionDisp: Rfl: diphenhydrAMINE 50 mg injection (BENADRYL)Disp: Rfl: hydrocortisone sodium succinate (PF) 100 mg injection (Solu-CORTEF)Disp: Rfl: EPINEPHrine HCl (PF) 1 mg/mL (1 mL) 0.3 mg injectionDisp: Rfl: BCN NURSING COMMUNICATION [[id number]] Order #: [id number]: 1 STANDING Prescriptions as of 02/24/2024 - Propafenone HCl (RYTHMOL) 225 mg tablet TAKE 1 TABLET EVERY 8 HOURS - liothyronine (CYTOMEL) 25 mcg tablet Take 25 mcg by mouth once daily. - calcitriol (ROCALTROL) 0.25 mcg capsule TAKE 1 PILL BY MOUTH WEDNESDAY, WEDNESDAY, WEDNESDAY - cephALEXin (KEFLEX) 250 mg capsule Take 250 mg by mouth two times a day. - aspirin, enteric coated (ASPIRIN, ENTERIC COATED) 81 mg EC tablet Take 81 mg by mouth once daily. - metoprolol tartrate, short acting, (LOPRESSOR) 25 mg tablet take 1 tablet by mouth twice a day - inulin (FIBER GUMMIES) 2 gram chew Take 1 Each by mouth as needed. - pantoprazole DR (PROTONIX) 40 mg tablet Take 40 mg by mouth twice daily. - liothyronine (CYTOMEL) 5 mcg tablet Take 1 tablet by mouth twice daily. - vit A/vit C/vit E/zinc/copper (ICAPS AREDS ORAL) Take 1 tablet by mouth two times a day. - cholecalciferol, Vitamin D3, (VITAMIN D3) 1,250 mcg (50,000 unit) cap capsule Take 50,000 Units by mouth once every month. - ibuprofen-acetaminophen (ADVIL DUAL ACTION) 125-250 mg tab Take 2 tablets by mouth twice daily as needed. - levothyroxine (SYNTHROID) 112 mcg tablet Take 1 tablet by mouth once daily. - EPINEPHrine (EPIPEN) 0.3 mg/0.3 mL auto-injector Inject 0.3 mg intramuscularly as needed. - multivitamin tablet Take 1 tablet by mouth once daily. Facility-Administered Medications as of 02/24/2024 - NaCl 0.9% iv infusion - diphenhydrAMINE 50 mg injection (BENADRYL) - hydrocortisone sodium succinate (PF) 100 mg injection (Solu-CORTEF) - EPINEPHrine HCl (PF) 1 mg/mL (1 mL) 0.3 mg injection Problem List As Of Date 02/24/2024 Noted Resolved Unspecified hypothyroidism [E03.9] 10/02/2002 10/04/2015 Paroxysmal atrial fibrillation (HCC) [I48.0] 06/21/2006 PAIN JOINT, KNEE [M25.569] 06/07/2008 STIFF JOINT LOWER LEG [M25.669] 06/07/2008 Follow-up examination, following other surgery *07/16/2008 10/04/2015 Hypothyroidism [E03.9] Unspecified vitamin D deficiency [E55.9] 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 [* Palpitations [R00.2] PAC (premature atrial contraction) [I49.1] Essential hypertension, benign [I10] 08/09/2018 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0] 06/27/2019 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 Normal [facility] Celiac Disease Profileon ENDOMYSIAL IGA Negative Normal Negative [facility] Comment on above: Performed By: #### L 400.0001 #### [facility] [address] [place], [address] IMMUNOGLOB A QN 199 mg/dL Normal 87-352 [facility] Comment on above: Result Comment: Perf ormed at: CB - [facility] [address] [id number] Oxyacetylene Torch Operator: Enrique Tariq PhD, Phone: [phone] Performed By: #### L 400.0001 #### [facility] [address] [place], [place], [address] tTG IGA <2 Normal 0-3 [facility] Comment on above: Result Comment: Nega tive 0 - 3 Weak Positive 4 - 10 Positive >10 Tissue Transglutaminase (tTG) has been identified as the endomysial antigen. Studies have demonstr- ated that endomysial IgA antibodies have over 99% specificity for gluten sensitive enteropathy. Performed By: #### L 400.0001 #### [facility] [address] [place], [address] [facility] Telephone (GAB) BELLA MORILLO ([id number]) 1955 F Date Time Provider Department 02/23/24 VERONICA JAY During your visit today, we recorded the following information about you: Veronica Jay LISW 02/23/2024 11:34 AM Signed SOCIAL WORK FOLLOW UP NOTE: [facility] Pt [facility] on [facility] 1st time treatment report. Pt has a non-oncology regimen. No social work follow up indicated. VIVIANA Gotti-Kaylan Allergies As of Date: 02/23/2024 Noted Allergy Reaction BEES 04/03/2004 10 - Anaphylaxis CODEINE 06/21/2006 5 - Intolerance Comments: migraines ADHESIVE TAPE (ROSINS) 08/17/2005 2 - Rash 9 - Itching ADHESIVE TAPE-SILICONES 16 - Unknown BEE STING 09/24/2015 10 - Anaphylaxis BEE VENOM PROTEIN (HONEY BEE) 10 - Anaphylaxis CORTISONE 08/10/2019 14 - Other: See Comments Comments: Turns red DAKIN'S (SODIUM HYPOCHLORITE SOLU*12/08/2019 16 - Unknown NICKEL 11/24/2019 16 - Unknown VANADIUM 11/24/2019 16 - Unknown Date Reviewed: 02/21/2024 Reviewed by: Paola Childs RN - Fully Assessed Reason for Visit: SOCIAL WORK SERVICES (1ST TIME TREATMENT) [Other] Prescriptions as of 02/23/2024 - Propafenone HCl (RYTHMOL) 225 mg tablet TAKE 1 TABLET EVERY 8 HOURS - liothyronine (CYTOMEL) 25 mcg tablet Take 25 mcg by mouth once daily. - calcitriol (ROCALTROL) 0.25 mcg capsule TAKE 1 PILL BY MOUTH WEDNESDAY, WEDNESDAY, WEDNESDAY - cephALEXin (KEFLEX) 250 mg capsule Take 250 mg by mouth two times a day. - aspirin, enteric coated (ASPIRIN, ENTERIC COATED) 81 mg EC tablet Take 81 mg by mouth once daily. - metoprolol tartrate, short acting, (LOPRESSOR) 25 mg tablet take 1 tablet by mouth twice a day - inulin (FIBER GUMMIES) 2 gram chew Take 1 Each by mouth as needed. - pantoprazole DR (PROTONIX) 40 mg tablet Take 40 mg by mouth twice daily. - liothyronine (CYTOMEL) 5 mcg tablet Take 1 tablet by mouth twice daily. - vit A/vit C/vit E/zinc/copper (ICAPS AREDS ORAL) Take 1 tablet by mouth two times a day. - cholecalciferol, Vitamin D3, (VITAMIN D3) 1,250 mcg (50,000 unit) cap capsule Take 50,000 Units by mouth once every month. - ibuprofen-acetaminophen (ADVIL DUAL ACTION) 125-250 mg tab Take 2 tablets by mouth twice daily as needed. - levothyroxine (SYNTHROID) 112 mcg tablet Take 1 tablet by mouth once daily. - EPINEPHrine (EPIPEN) 0.3 mg/0.3 mL auto-injector Inject 0.3 mg intramuscularly as needed. - multivitamin tablet Take 1 tablet by mouth once daily. 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0] 06/27/2019 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*06/27/2019 Raynaud's disease [I73.00] 06/27/2019 Headache [R51.9] 09/18/2020 History of atrial fibrillation [Z86.79] 09/18/2020 Kidney stone [N20.0] 10/08/2021 Cataract [H26.9] 10/08/2021 Decreased glomerular filtration rate (GFR) [R94*10/08/2021 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, [address] HH, Hemoglobin AND Hematocri ton 02-23-2024 Hematocrit (Bld) [Volume fraction] 34.6 % Low 37-47 [facility] Comment on above: Performed By: #### L 503.6150, L503.6550, L3410.2400, L100.0600 #### [facility] [address] [place], [address] Hemoglobin (Bld) [Mass/Vol] 10.5 g/dL Low 12.0-15.0 [facility] Comment on above: Performed By: #### L 503.6150, L503.6550, L3410.2400, L100.0600 #### [facility] [address] [place], [address] Ironon 02-23-2024 Iron [Mass/Vol] 76 ug/dL Normal 50-170 [facility] Comment on above: Order Comment: BOBO Performed By: #### L 503.6150, L503.6550, L3410.2400, L100.0600 #### [facility] [address] [place], [address] CNOVSPon 02-21-2024 CNOVS [facility]SP[facility] BELL[facility]ORILL[facility] ([id number]) 1955 F Date Time Provider Department 02/21/24 9:00 AM TREATMENT RM 16 [facility] During your visit today, we recorded the following information about you: Temperature Pulse Respiration Blood pressure 97.8 degrees 58/minute 18/minute 124/74 Referring Provider: LINDSEY ZUNIGA [[id number]] Allergies As of Date: 02/21/2024 Noted Allergy Reaction BEES 04/03/2004 10 - Anaphylaxis CODEINE 06/21/2006 5 - Intolerance Comments: migraines ADHESIVE TAPE (ROSINS) 08/17/2005 2 - Rash 9 - Itching ADHESIVE TAPE-SILICONES 16 - Unknown BEE STING 09/24/2015 10 - Anaphylaxis BEE VENOM PROTEIN (HONEY BEE) 10 - Anaphylaxis CORTISONE 08/10/2019 14 - Other: See Comments Comments: Turns red DAKIN'S (SODIUM HYPOCHLORITE SOLU*12/08/2019 16 - Unknown NICKEL 11/24/2019 16 - Unknown VANADIUM 11/24/2019 16 - Unknown Date Reviewed: 02/21/2024 Reviewed by: Paola Childs, RN - Fully Assessed Reason for Visit: Non-Chemotherapy Treatment [795] Primary Visit Diagnosis:Iron 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 dietary iron intake [D50.8] Order(s):TREATMENT PARAMETER-NOT NEEDED [[id number]] Order #: [id number]: 1 BCN NURSING COMMUNICATION [[id number]] Order #: [id number]: 1 STANDING BCN NURSING COMMUNICATION [[id number]] Order #: [id number]: 1 STANDING [] iron sucrose 200 mg injection (VENOFER)Disp: Rfl: NaCl 0.9% iv infusionDisp: Rfl: diphenhydrAMINE 50 mg injection (BENADRYL)Disp: Rfl: hydrocortisone sodium succinate (PF) 100 mg injection (Solu-CORTEF)Disp: Rfl: EPINEPHrine HCl (PF) 1 mg/mL (1 mL) 0.3 mg injectionDisp: Rfl: BCN NURSING COMMUNICATION [[id number]] Order #: [id number]: 1 STANDING Prescriptions as of 02/21/2024 - liothyronine (CYTOMEL) 25 mcg tablet Take 25 mcg by mouth once daily. - calcitriol (ROCALTROL) 0.25 mcg capsule TAKE 1 PILL BY MOUTH WEDNESDAY, WEDNESDAY, WEDNESDAY - cephALEXin (KEFLEX) 250 mg capsule Take 250 mg by mouth two times a day. - aspirin, enteric coated (ASPIRIN, ENTERIC COATED) 81 mg EC tablet Take 81 mg by mouth once daily. - Propafenone HCl (RYTHMOL) 225 mg tablet TAKE 1 TABLET EVERY 8 HOURS - metoprolol tartrate, short acting, (LOPRESSOR) 25 mg tablet take 1 tablet by mouth twice a day - inulin (FIBER GUMMIES) 2 gram chew Take 1 Each by mouth as needed. - pantoprazole DR (PROTONIX) 40 mg tablet Take 40 mg by mouth twice daily. - liothyronine (CYTOMEL) 5 mcg tablet Take 1 tablet by mouth twice daily. - vit A/vit C/vit E/zinc/copper (ICAPS AREDS ORAL) Take 1 tablet by mouth two times a day. - cholecalciferol, Vitamin D3, (VITAMIN D3) 1,250 mcg (50,000 unit) cap capsule Take 50,000 Units by mouth once every month. - ibuprofen-acetaminophen (ADVIL DUAL ACTION) 125-250 mg tab Take 2 tablets by mouth twice daily as needed. - levothyroxine (SYNTHROID) 112 mcg tablet Take 1 tablet by mouth once daily. - EPINEPHrine (EPIPEN) 0.3 mg/0.3 mL auto-injector Inject 0.3 mg intramuscularly as needed. - multivitamin tablet Take 1 tablet by mouth once daily. Facility-Administered Medications as of 02/21/2024 - NaCl 0.9% iv infusion - diphenhydrAMINE 50 mg injection (BENADRYL) - hydrocortisone sodium succinate (PF) 100 mg injection (Solu-CORTEF) - EPINEPHrine HCl (PF) 1 mg/mL (1 mL) 0.3 mg injection Problem List As Of Date 02/21/2024 Noted Resolved Unspecified hypothyroidism [E03.9] 10/02/2002 10/04/2015 Paroxysmal atrial fibrillation (HCC) [I48.0] 06/21/2006 PAIN JOINT, KNEE [M25.569] 06/07/2008 STIFF JOINT LOWER LEG [M25.669] 06/07/2008 Follow-up examination, following other surgery *07/16/2008 10/04/2015 Hypothyroidism [E03.9] Unspecified vitamin D deficiency [E55.9] 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 [* Palpitations [R00.2] PAC (premature atrial contraction) [I49.1] Essential hypertension, benign [I10] 08/09/2018 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0] 06/27/2019 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 Normal [facility] CNOVSPon 02-17-2024 CNOVSP Visit (SP) Office (H [facility]) BELLA MORILLO ([id number]) 1955 F Date Time Provider Department 02/17/24 10:30 AM TREATMENT RM 15 [facility] During your visit today, we recorded the following information about you: Temperature Pulse Respiration Blood pressure 97.5 degrees 69/minute 16/minute 116/69 Referring Provider: LINDSEY ZUNIGA [[id number]] Allergies As of Date: 02/17/2024 Noted Allergy Reaction BEES 04/03/2004 10 - Anaphylaxis CODEINE 06/21/2006 5 - Intolerance Comments: migraines ADHESIVE TAPE (ROSINS) 08/17/2005 2 - Rash 9 - Itching ADHESIVE TAPE-SILICONES 16 - Unknown BEE STING 09/24/2015 10 - Anaphylaxis BEE VENOM PROTEIN (HONEY BEE) 10 - Anaphylaxis CORTISONE 08/10/2019 14 - Other: See Comments Comments: Turns red DAKIN'S (SODIUM HYPOCHLORITE SOLU*12/08/2019 16 - Unknown NICKEL 11/24/2019 16 - Unknown VANADIUM 11/24/2019 16 - Unknown Date Reviewed: 02/17/2024 Reviewed by: Shanon Alicea RN - Fully Assessed Reason for Visit: Non-Chemotherapy Treatment [795] Primary Visit Diagnosis:Iron 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 dietary iron intake [D50.8] Order(s):[] iron sucrose 200 mg injection (VENOFER)Disp: Rfl: NaCl 0.9% iv infusionDisp: Rfl: diphenhydrAMINE 50 mg injection (BENADRYL)Disp: Rfl: hydrocortisone sodium succinate (PF) 100 mg injection (Solu-CORTEF)Disp: Rfl: EPINEPHrine HCl (PF) 1 mg/mL (1 mL) 0.3 mg injectionDisp: Rfl: BCN NURSING COMMUNICATION [[id number]] Order #: [id number]: 1 STANDING Prescriptions as of 02/17/2024 - liothyronine (CYTOMEL) 25 mcg tablet Take 25 mcg by mouth once daily. - calcitriol (ROCALTROL) 0.25 mcg capsule TAKE 1 PILL BY MOUTH WEDNESDAY, WEDNESDAY, WEDNESDAY - cephALEXin (KEFLEX) 250 mg capsule Take 250 mg by mouth two times a day. - aspirin, enteric coated (ASPIRIN, ENTERIC COATED) 81 mg EC tablet Take 81 mg by mouth once daily. - Propafenone HCl (RYTHMOL) 225 mg tablet TAKE 1 TABLET EVERY 8 HOURS - metoprolol tartrate, short acting, (LOPRESSOR) 25 mg tablet take 1 tablet by mouth twice a day - inulin (FIBER GUMMIES) 2 gram chew Take 1 Each by mouth as needed. - pantoprazole DR (PROTONIX) 40 mg tablet Take 40 mg by mouth twice daily. - liothyronine (CYTOMEL) 5 mcg tablet Take 1 tablet by mouth twice daily. - vit A/vit C/vit E/zinc/copper (ICAPS AREDS ORAL) Take 1 tablet by mouth two times a day. - cholecalciferol, Vitamin D3, (VITAMIN D3) 1,250 mcg (50,000 unit) cap capsule Take 50,000 Units by mouth once every month. - ibuprofen-acetaminophen (ADVIL DUAL ACTION) 125-250 mg tab Take 2 tablets by mouth twice daily as needed. - levothyroxine (SYNTHROID) 112 mcg tablet Take 1 tablet by mouth once daily. - EPINEPHrine (EPIPEN) 0.3 mg/0.3 mL auto-injector Inject 0.3 mg intramuscularly as needed. - multivitamin tablet Take 1 tablet by mouth once daily. Facility-Administered Medications as of 02/17/2024 - NaCl 0.9% iv infusion - diphenhydrAMINE 50 mg injection (BENADRYL) - hydrocortisone sodium succinate (PF) 100 mg injection (Solu-CORTEF) - EPINEPHrine HCl (PF) 1 mg/mL (1 mL) 0.3 mg injection Problem List As Of Date 02/17/2024 Noted Resolved Unspecified hypothyroidism [E03.9] 10/02/2002 10/04/2015 Paroxysmal atrial fibrillation (HCC) [I48.0] 06/21/2006 PAIN JOINT, KNEE [M25.569] 06/07/2008 STIFF JOINT LOWER LEG [M25.669] 06/07/2008 Follow-up examination, following other surgery *07/16/2008 10/04/2015 Hypothyroidism [E03.9] Unspecified vitamin D deficiency [E55.9] 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 [* Palpitations [R00.2] PAC (premature atrial contraction) [I49.1] Essential hypertension, benign [I10] 08/09/2018 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0] 06/27/2019 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 Normal [facility] Valerie 02-16-2024 LISA Telephone (HEMAWS) BELLA MORILLO ([id number]) 1955 F Date Time Provider Department 02/16/24 LINDSEY ZUNIGA During your visit today, we recorded the following information about you: Sweta Zavaleta 02/16/2024 10:52 AM Signed I called and left a message fr [facility] to call back to confirm that there has been a change in her iron treament. The treatment dose had to be changed and so she will need 5 doses instead of the 3 doses. This is due to a national iron shortage and the previous dose was not able to be obtained. Please confirm this with patient when she calls back , if there are any issues with the two new scheduled appointments we can reschedule them as she needs. The new appointments are 02/20 and 02/27. Thank you Sweta Henson Janet Tai 02/16/2024 11:06 AM Signed Patient called back and confirmed the 2 new appts are ok. Thank you Allergies As of Date: 02/16/2024 Noted Allergy Reaction BEES 04/03/2004 10 - Anaphylaxis CODEINE 06/21/2006 5 - Intolerance Comments: migraines ADHESIVE TAPE (ROSINS) 08/17/2005 2 - Rash 9 - Itching ADHESIVE TAPE-SILICONES 16 - Unknown BEE STING 09/24/2015 10 - Anaphylaxis BEE VENOM PROTEIN (HONEY BEE) 10 - Anaphylaxis CORTISONE 08/10/2019 14 - Other: See Comments Comments: Turns red DAKIN'S (SODIUM HYPOCHLORITE SOLU*12/08/2019 16 - Unknown NICKEL 11/24/2019 16 - Unknown VANADIUM 11/24/2019 16 - Unknown Date Reviewed: 02/02/2024 Reviewed by: Lindsey Zuniga - Fully Assessed Prescriptions as of 02/16/2024 - liothyronine (CYTOMEL) 25 mcg tablet Take 25 mcg by mouth once daily. - calcitriol (ROCALTROL) 0.25 mcg capsule TAKE 1 PILL BY MOUTH WEDNESDAY, WEDNESDAY, WEDNESDAY - cephALEXin (KEFLEX) 250 mg capsule Take 250 mg by mouth two times a day. - aspirin, enteric coated (ASPIRIN, ENTERIC COATED) 81 mg EC tablet Take 81 mg by mouth once daily. - Propafenone HCl (RYTHMOL) 225 mg tablet TAKE 1 TABLET EVERY 8 HOURS - metoprolol tartrate, short acting, (LOPRESSOR) 25 mg tablet take 1 tablet by mouth twice a day - inulin (FIBER GUMMIES) 2 gram chew Take 1 Each by mouth as needed. - pantoprazole DR (PROTONIX) 40 mg tablet Take 40 mg by mouth twice daily. - liothyronine (CYTOMEL) 5 mcg tablet Take 1 tablet by mouth twice daily. - vit A/vit C/vit E/zinc/copper (ICAPS AREDS ORAL) Take 1 tablet by mouth two times a day. - cholecalciferol, Vitamin D3, (VITAMIN D3) 1,250 mcg (50,000 unit) cap capsule Take 50,000 Units by mouth once every month. - ibuprofen-acetaminophen (ADVIL DUAL ACTION) 125-250 mg tab Take 2 tablets by mouth twice daily as needed. - levothyroxine (SYNTHROID) 112 mcg tablet Take 1 tablet by mouth once daily. - EPINEPHrine (EPIPEN) 0.3 mg/0.3 mL auto-injector Inject 0.3 mg intramuscularly as needed. - multivitamin tablet Take 1 tablet by mouth once daily. 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 [* Palpitations [R00.2] PAC (premature atrial contraction) [I49.1] Essential hypertension, benign [I10] 08/09/2018 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0] 06/27/2019 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*06/27/2019 Raynaud's disease [I73.00] 06/27/2019 Headache [R51.9] 09/18/2020 History of atrial fibrillation [Z86.79] 09/18/2020 Kidney stone [N20.0] 10/08/2021 Cataract [H26.9] 10/08/2021 Decreased glomerular filtration rate (GFR) [R94*10/08/2021 Degeneration of intervertebral disc of lumbar r*10/08/2021 Macular degeneration [H35.30] 10/08/2021 Hematuria syndrome [R31.9] 10/08/2021 Hiatal hernia [K44.9] 10/08/2021 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 The patient does not have a cancer diagnosis or a chemo/radiation regimen. No further Financial Navigator intervention is needed at this time. Allergies As of Date: 02/11/2024 Noted Allergy Reaction BEES 04/03/2004 10 - Anaphylaxis CODEINE 06/21/2006 5 - Intolerance Comments: migraines ADHESIVE TAPE (ROSINS) 08/17/2005 2 - Rash 9 - Itching ADHESIVE TAPE-SILICONES 16 - Unknown BEE STING 09/24/2015 10 - Anaphylaxis BEE VENOM PROTEIN (HONEY BEE) 10 - Anaphylaxis CORTISONE 08/10/2019 14 - Other: See Comments Comments: Turns red DAKIN'S (SODIUM HYPOCHLORITE SOLU*12/08/2019 16 - Unknown NICKEL 11/24/2019 16 - Unknown VANADIUM 11/24/2019 16 - Unknown Date Reviewed: 02/02/2024 Reviewed by: Lindsey Zuniga - Fully Assessed Reason for Visit: Benefits Investigation [4098] Prescriptions as of 02/11/2024 - liothyronine (CYTOMEL) 25 mcg tablet Take 25 mcg by mouth once daily. - calcitriol (ROCALTROL) 0.25 mcg capsule TAKE 1 PILL BY MOUTH WEDNESDAY, WEDNESDAY, WEDNESDAY - cephALEXin (KEFLEX) 250 mg capsule Take 250 mg by mouth two times a day. - aspirin, enteric coated (ASPIRIN, ENTERIC COATED) 81 mg EC tablet Take 81 mg by mouth once daily. - Propafenone HCl (RYTHMOL) 225 mg tablet TAKE 1 TABLET EVERY 8 HOURS - metoprolol tartrate, short acting, (LOPRESSOR) 25 mg tablet take 1 tablet by mouth twice a day - inulin (FIBER GUMMIES) 2 gram chew Take 1 Each by mouth as needed. - pantoprazole DR (PROTONIX) 40 mg tablet Take 40 mg by mouth twice daily. - liothyronine (CYTOMEL) 5 mcg tablet Take 1 tablet by mouth twice daily. - vit A/vit C/vit E/zinc/copper (ICAPS AREDS ORAL) Take 1 tablet by mouth two times a day. - cholecalciferol, Vitamin D3, (VITAMIN D3) 1,250 mcg (50,000 unit) cap capsule Take 50,000 Units by mouth once every month. - ibuprofen-acetaminophen (ADVIL DUAL ACTION) 125-250 mg tab Take 2 tablets by mouth twice daily as needed. - levothyroxine (SYNTHROID) 112 mcg tablet Take 1 tablet by mouth once daily. - EPINEPHrine (EPIPEN) 0.3 mg/0.3 mL auto-injector Inject 0.3 mg intramuscularly as needed. - multivitamin tablet Take 1 tablet by mouth once daily. 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 [* Palpitations [R00.2] PAC (premature atrial contraction) [I49.1] Essential hypertension, benign [I10] 08/09/2018 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0] 06/27/2019 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*06/27/2019 Raynaud's disease [I73.00] 06/27/2019 Headache [R51.9] 09/18/2020 History of atrial fibrillation [Z86.79] 09/18/2020 Kidney stone [N20.0] 10/08/2021 Cataract [H26.9] 10/08/2021 Decreased glomerular filtration rate (GFR) [R94*10/08/2021 Degeneration of intervertebral disc of lumbar r*10/08/2021 Macular degeneration [H35.30] 10/08/2021 Hematuria syndrome [R31.9] 10/08/2021 Hiatal hernia [K44.9] 10/08/2021 intermediate current use of antiarrhythmic drug [Z*06/14/2023 Iron 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 *02/03/2024 Encounter Status:Closed by SIMEON CHRIS on 02/11/24 Normal [facility] FERRITINon 02-02-2024 Ferritin [Mass/Vol] 23.7 ng/mL 14.7 - 205.1 ng/mL [facility] Iron and Iron binding capaci ty panelon 02-02-2024 Interpretation and review of laboratory results Abnormal [facility] Iron [Mass/Vol] 36 ug/dL Low 41 - 186 ug/dL [facility] Iron binding capacity [Mass/Vol] 397 ug/dL High 232 - 386 ug/dL [facility] Iron/TIBC [Molar ratio] 9.1 % Low 15.0 - 57.0 % [facility] LABORATORYOrdered By: SYSTEM SYSTEM on 02-02-2024 Free T3 [Mass/Vol] 6.53 pg/mL High 2.30 - 4.00 pg/mL AO ADM SS Free T4 [Mass/Vol] 0.96 ng/dL Normal 0.76 - 1.46 ng/dL AO ADM SS TSH Qn 0.01 m[IU]/L Low 0.36 - 3.74 mcIU/mL AO ADM SS No Panel Informationon 02-01 Interpretation and review of laboratory results Normal [facility] VITAMIN B12on 02-02-2024 Cobalamin (Vitamin B12) [Mass/Vol] 760 pg/mL 232 - 1245 pg/mL [facility] CBC W Auto Differential pane l (Bld)on 02-01-2024 Basophils (Bld) [#/Vol] 0.14 10*3/uL High NINF [facility] Basophils/100 WBC (Bld) 2.2 % [facility] Differential cell count method Nom (Bld) Auto [facility] Eosinophils (Bld) [#/Vol] 0.88 10*3/uL High [facility] Eosinophils/100 WBC (Bld) 13.9 % [facility] Erythrocyte distribution width (RBC) [Ratio] 18.4 % High 11.5 - 15.0 % [facility] Hematocrit (Bld) [Volume fraction] 33.7 % Low 36.0 - 46.0 % [facility] Hemoglobin (Bld) [Mass/Vol] 10.8 g/dL Low 11.5 - 15.5 g/dL [facility] Immature granulocytes (Bld) [#/Vol] [facility] Immature granulocytes/100 WBC (Bld) 0.2 % [facility] Interpretation and review of laboratory results Abnormal [facility] Lymphocytes (Bld) [#/Vol] 1.52 10*3/uL [facility] Lymphocytes/100 WBC (Bld) 23.9 % [facility] MCH (RBC) [Entitic mass] 26.4 pg 26.0 - 34.0 pg [facility] MCHC (RBC) [Mass/Vol] 32.0 g/dL 30.5 - 36.0 g/dL [facility] MCV (RBC) [Entitic vol] 82.4 fL 80.0 - 100.0 fL [facility] Monocytes (Bld) [#/Vol] 0.80 10*3/uL [facility] Monocytes/100 WBC (Bld) 12.6 % [facility] Neutrophils (Bld) [#/Vol] 3.00 10*3/uL [facility] Neutrophils/100 WBC (Bld) 47.2 % [facility] Nucleated RBC (Bld) [#/Vol] [facility] Nucleated RBC/100 WBC (Bld) [Ratio] 0.0 % /100 WBC [facility] Platelet mean volume (Bld) [Entitic vol] 11.4 fL 9.0 - 12.7 fL [facility] Platelets (Bld) [#/Vol] 272 10*3/uL [facility] RBC (Bld) [#/Vol] 4.09 10*6/uL 3.90 - 5.20 m/uL [facility] WBC (Bld) [#/Vol] 6.35 10*3/uL [facility] Comprehensive metabolic 2000 panelOrdered By: Oksana Queen on 02-01-2024 Albumin [Mass/Vol] 4.2 g/dL 3.9 - 4.9 g/dL [facility] ALP [Catalytic activity/Vol] 44 U/L 34 - 123 U/L [facility] ALT [Catalytic activity/Vol] 10 U/L 7 - 38 U/L [facility] Anion gap [Moles/Vol] 13 mmol/L 8 - 15 mmol/L [facility] AST [Catalytic activity/Vol] 17 U/L 13 - 35 U/L [facility] Bilirubin [Mass/Vol] 0.4 mg/dL 0.2 - 1 .3 mg/dL [facility] Calcium [Mass/Vol] 9.6 mg/dL 8.5 - 10. 2 mg/dL [facility] Chloride [Moles/Vol] 103 mmol/L 98 - 10 7 mmol/L [facility] CO2 [Moles/Vol] 24 mmol/L 22 - 30 mmol/L [facility] Creatinine [Mass/Vol] 0.93 mg/dL 0.58 - 0.96 mg/dL [facility] GFR/1.73 sq M.predicted among non-blacks MDRD (S/P/Bld) [Vol rate/Area] 68 mL/min/{1.73_m2} - PINF [facility] Comment on above: Estimated Glomerular Filtration Rate (eGFR) is calculated using the 2020 CKD-EPI creatinine equation. This equation utilizes serum creatinine, sex, and age as parameters. The creatinine assay has traceable calibration to isotope dilution-mass spectrometry. Refer to KDIGO guidelines for clinical interpretation. In patients with unstable renal function, e.g. those with acute kidney injury, the eGFR may not accurately reflect actual GFR. Glucose [Mass/Vol] 84 mg/dL 74 - 99 mg/dL [facility] Comment on above: The [place] Di[employer] Association (ADA) provides guidance for cutoff values for fasting glucose and random glucose. The ADA defines fasting as no caloric intake for at least 8 hours. Fasting plasma glucose results between 100 to 125 mg/dL indicate increased risk for diabetes (prediabetes). Fasting plasma glucose results greater than or equal to 126 mg/dL meet the criteria for diagnosis of diabetes. In the absence of unequivocal hyperglycemia, results should be confirmed by repeat testing. In a patient with classic symptoms of hyperglycemia or hyperglycemic crisis, random plasma glucose results greater than or equal to 200 mg/dL meet the criteria for diagnosis of diabetes. Reference: Standards of Medical Care in Diabetes 2016, [place] [employer]. Diabetes Care. 2016.39(Suppl 1). Interpretation and review of laboratory results Normal [facility] Potassium [Moles/Vol] 4.2 mmol/L 3.7 - 5.1 mmol/L [facility] Protein [Mass/Vol] 7.3 g/dL 6.3 - 8.0 g/dL [facility] Sodium [Moles/Vol] 140 mmol/L 136 - 144 mmol/L [facility] Urea nitrogen [Mass/Vol] 17 mg/dL 7 - 21 mg/dL [facility] CEFTRIAXONE:SUSC:PT:ISOLATE: ORDQN:MICon 01-28-2024 cefTRIAXone TRUDY [Susc] >100,000 cfu/ml E scherichia coli [facility] Work Phone: cefTRIAXone TRUDY [Susc]on Escherichia coli Escherichia coli [facility] Work Phone: Urine Cultureon 12-24-2023 [facility] Streptococcus agalac tiae (B) [place] Count 25,000-50,000 Streptococcus agalactiae (B): REACTION Ampicillin Islt TRUDY <=0.25 S Penicillin G Islt TRUDY <=0.06 S cefTRIAXone Islt TRUDY <=0.12 S Clindamycin Islt TRUDY >=1 R Clindamycin.induced Susc Islt NEG Linezolid Islt TRUDY <=2 S Vancomycin Islt TRUDY 0.5 S Normal [facility] Comment on above: Performed By: #### M 100.0540 #### [facility] Laboratory [address] [place], [address] LABORATORYOrdered By: SYSTEM SYSTEM on 12-23-2023 Basophil, Absolute 0.1 103/mcL Normal 0.0 - 0.2 10^3/mcL AO Workflow SS Basophils/100 WBC (Bld) 1.2 % Normal 0.0 - 2.5 % AO Workflow SS Cobalamin (Vitamin B12) [Mass/Vol] 1454 pg/mL High 211 - 911 pg/mL AH ADM SS Eosinophil, Absolute 0.8 103/mcL High 0.0 - 0 .4 10^3/mcL AO Workflow SS Eosinophils/100 WBC (Bld) 12.3 % High 0.0 - 7.0 % AO Workflow SS Erythrocyte distribution width (RBC) [Ratio] 17.3 % High 11.5 - 14.5 % AO Workflow SS Folate [Mass/Vol] 16.35 ng/mL Normal 5.38 - 24.00 ng/mL AH ADM SS Free T3 [Mass/Vol] 5.48 pg/mL High 2.30 - 4.00 pg/mL AO ADM SS Free T4 [Mass/Vol] 1.00 ng/dL Normal 0.76 - 1.46 ng/dL AO ADM SS Hematocrit (Bld) [Volume fraction] 35.3 % Low 37.0 - 47.0 % AO Workflow SS Hemoglobin (Bld) [Mass/Vol] 11.5 G/dL Low 12.0 - 16.0 G/dL AO Workflow SS Lymphocyte, Absolute 0.5 103/mcL Low 0.8 - 3 .9 10^3/mcL AO Workflow SS Lymphocytes/100 WBC (Bld) 8.3 % Low 10.0 - 50.0 % AO Workflow SS MCH (RBC) [Entitic mass] 26.6 pg Low 27.0 - 31.2 pg AO Workflow SS MCHC 32.7 G/dL Low 33.0 - 37.0 G/dL AO Workflow SS MCV (RBC) [Entitic vol] 81.2 fL Normal 80.0 - 94.0 fL AO Workflow SS Monocyte, Absolute 0.8 103/mcL Normal 0.2 - 1.0 10^3/mcL AO Workflow SS Monocytes/100 WBC (Bld) 12.6 % Normal 1.7 - 13.0 % AO Workflow SS Neutrophil, Absolute 4.2 103/mcL Normal 2.9 - 6 .2 10^3/mcL AO Workflow SS Neutrophils/100 WBC (Bld) 65.6 % Normal 37.0 - 80.0 % AO Workflow SS Platelet mean volume (Bld) [Entitic vol] 9.7 fL Normal 7.4 - 10.4 fL AO Workflow SS Platelets (Bld) [#/Vol] 240 103/mcL Normal 130 - 400 10^3/mcL AO Workflow SS RBC (Bld) [#/Vol] 4.34 106/mcL Normal 4.20 - 5.40 10^6/mcL AO Workflow SS TSH Qn 0.02 m[IU]/L Low 0.36 - 3.74 mcIU/mL AO ADM SS WBC (Bld) [#/Vol] 6.5 103/mcL Normal 4.6 - 10.8 10^3/mcL AO Workflow SS CBC W/Diff, Automatedon 11-25 Absolute Lymph 0.31 X10 3/uL Low 0.83-4.51 [facility] Comment on above: Performed By: #### L 100.0100, L500.4050 #### [facility] [address] [place], [address] Absolute Neut 9.3 X10 3/uL High 2.0-7.7 [facility] Comment on above: Performed By: #### L 100.0100, L500.4050 #### [facility] [address] [place], [address] Basophils/100 WBC (Bld) 0.6 % Normal 0-1 [facility] Comment on above: Performed By: #### L 100.0100, L500.4050 #### [facility] [address] [place], [address] Eosinophils/100 WBC (Bld) 0.8 % Normal 0-5 [facility] Comment on above: Performed By: #### L 100.0100, L500.4050 #### [facility] [address] [place], [address] Erythrocyte distribution width (RBC) [Ratio] 16.8 % High 11.6-14.6 [facility] Comment on above: Performed By: #### L 100.0100, L500.4050 #### [facility] [address] [place], [address] Hematocrit (Bld) [Volume fraction] 33.0 % Low 37-47 [facility] Comment on above: Performed By: #### L 100.0100, L500.4050 #### [facility] [address] [place], [address] Hemoglobin (Bld) [Mass/Vol] 10.6 g/dL Low 12.0-15.0 [facility] Comment on above: Performed By: #### L 100.0100, L500.4050 #### [facility] [address] [place], [address] IG% 0.500 Normal 0.0-0.9 [facility] Comment on above: Result Comment: IG% - Immature Granulocytes (promyelocytes, myelocytes and metamyelocytes) > 1% indicates that a LEFT SHIFT is Present. Performed By: #### L 100.0100, L500.4050 #### [facility] [address] [place], [address] Lymphocytes/100 WBC (Bld) 2.9 % Low 19-41 [facility] Comment on above: Performed By: #### L 100.0100, L500.4050 #### [facility] [address] [place], [address] MCH (RBC) [Entitic mass] 25.7 pg Low 27.0-32.0 [facility] Comment on above: Performed By: #### L 100.0100, L500.4050 #### [facility] [address] [place], [address] MCHC (RBC) [Mass/Vol] 32.1 g/dL Normal 32-36 [place] Comment on above: Performed By: #### L 100.0100, L500.4050 #### [facility] [address] [place], [address] MCV (RBC) [Entitic vol] 79.9 fL Low 81-99 [facility] Comment on above: Performed By: #### L 100.0100, L500.4050 #### [facility] [address] [place], [address] Monocytes/100 WBC (Bld) 8.7 % Normal 0-10 [facility] Comment on above: Performed By: #### L 100.0100, L500.4050 #### [facility] [address] [place], [address] Neutrophils/100 WBC (Bld) 86.5 % High 47-70 [facility] Comment on above: Performed By: #### L 100.0100, L500.4050 #### [facility] [address] [place], [address] Nucleated RBC (Bld) [#/Vol] 0 10*3/uL Normal 0-5 [facility] Comment on above: Performed By: #### L 100.0100, L500.4050 #### [facility] [address] [place], [address] Platelet mean volume (Bld) [Entitic vol] 10.9 fL Normal 6.2-12.0 [facility] Comment on above: Performed By: #### L 100.0100, L500.4050 #### [facility] [address] [place], [address] Platelets (Bld) [#/Vol] 193 10*3/uL Normal 150-450 [facility] Comment on above: Performed By: #### L 100.0100, L500.4050 #### [facility] [address] [place], [address] RBC (Bld) [#/Vol] 4.13 10*6/uL Low 4.2-5.4 [facility] Comment on above: Performed By: #### L 100.0100, L500.4050 #### [facility] [address] [place], [address] RDW SD 48.6 fl High 35.1-43.9 [facility] Comment on above: Performed By: #### L 100.0100, L500.4050 #### [facility] [address] [place], [address] WBC (Bld) [#/Vol] 10.8 10*3/uL Normal 4.4-11.0 [facility] Comment on above: Performed By: #### L 100.0100, L500.4050 #### [facility] [address] [place], [address] Comprehensive Metabolic Prof ilon 12-20-2023 Albumin [Mass/Vol] 3.4 g/dL Normal 3.2-5.0 [facility] Comment on above: Performed By: #### L 100.0100, L500.4050 #### [facility] [address] [place], [address] Albumin/Globulin [Mass ratio] 0.9 {ratio} Normal 0.9-2.4 [facility] Comment on above: Performed By: #### L 100.0100, L500.4050 #### [facility] [address] [place], [address] ALK P 52 U/L Normal 45-117 [facility] Comment on above: Performed By: #### L 100.0100, L500.4050 #### [facility] [address] [place], [address] ALT [Catalytic activity/Vol] 21 U/L Normal 13-56 [facility] Comment on above: Performed By: #### L 100.0100, L500.4050 #### [facility] [address] [place], [address] AST [Catalytic activity/Vol] 20 U/L Normal 15-37 [facility] Comment on above: Performed By: #### L 100.0100, L500.4050 #### [facility] [address] [place], [address] Bilirubin [Mass/Vol] 0.60 mg/dL Normal 0.20-1.00 [facility] Comment on above: Result Comment: For patients on eltrombopag therapy, use of Dimension [place] TBIL is not recommended. Performed By: #### L 100.0100, L500.4050 #### [facility] [address] [place], [address] BUN/CRE 19.8 RATIO Normal 10-20 [facility] Comment on above: Performed By: #### L 100.0100, L500.4050 #### [facility] [address] [place], [address] CA,Total 9.1 mg/dL Normal 8.5-10.1 [facility] Comment on above: Performed By: #### L 100.0100, L500.4050 #### [facility] [address] [place], [address] Chloride [Moles/Vol] 103 mmol/L Normal 98-107 [facility] Comment on above: Performed By: #### L 100.0100, L500.4050 #### [facility] [address] [place], [address] CO2 [Moles/Vol] 27.0 mmol/L Normal 21.0-32.0 [facility] Comment on above: Performed By: #### L 100.0100, L500.4050 #### [facility] [address] [place], [address] Creatinine [Mass/Vol] 1.16 mg/dL High 0.55-1.02 [place] Comment on above: Result Comment: The validity of the calculated GFR GFRAA in patients over 70 years has not been determined. Clinical correlation is essential. Performed By: #### L 100.0100, L500.4050 #### [facility] [address] [place], [address] ECRCL 46.39 ml/min Normal [facility] Comment on above: Performed By: #### L 100.0100, L500.4050 #### [facility] [address] [place], [address] EST GFR - AA 60 mL/min Normal >60 [facility] Comment on above: Result Comment: Afri can [place] GFR Calc Performed By: #### L 100.0100, L500.4050 #### [facility] [address] [place], [address] GAP 7 Normal 5-15 [facility] Comment on above: Performed By: #### L 100.0100, L500.4050 #### [facility] [address] [place], [address] GFR/1.73 sq M.predicted among non-blacks MDRD (S/P/Bld) [Vol rate/Area] 50 mL/min/{1.73_m2} Low >60 [facility] Comment on above: Result Comment: Non- GFR Calc Performed By: #### L 100.0100, L500.4050 #### [facility] [address] [place], [address] Globulin (S) [Mass/Vol] 3.9 g/dL Normal 2.2-4.2 [facility] Comment on above: Performed By: #### L 100.0100, L500.4050 #### [facility] [address] [place], [address] Glucose [Mass/Vol] 115 mg/dL High 74-106 [facility] Comment on above: Result Comment: Fast ing Glucose result from 100 to 125 mg/dL suggests IMPAIRED HOMEOSTASIS per A.D.A. criteria. Performed By: #### L 100.0100, L500.4050 #### [facility] [address] [place], [address] Potassium [Moles/Vol] 4.2 mmol/L Normal 3.5-5.1 [place] Comment on above: Performed By: #### L 100.0100, L500.4050 #### [facility] [address] [place], [address] Sodium [Moles/Vol] 137 mmol/L Normal 136-145 [facility] Comment on above: Performed By: #### L 100.0100, L500.4050 #### [facility] [address] [place], [address] T PROT 7.3 g/dL Normal 6.4-8.2 [facility] Comment on above: Performed By: #### L 100.0100, L500.4050 #### [facility] [address] [place], [address] Urea nitrogen [Mass/Vol] 23 mg/dL High 7-18 [facility] Comment on above: Performed By: #### L 100.0100, L500.4050 #### [facility] [address] [place], [address] Emergency Department Summary on 12-20-[address] [facility] Department [address] [place] [address] Emergency Department Summary 12/20/23 MR#: [id number] Acct: [id number] Name: BELLA MORILLO BRIEN Rep #: [id number] : 1955 68 From: Michael Harp DO PCP: Dr. Sridhar Montero, DO Status:DEP ER Location: ED HPI History of Present Illness Chief Complaint: Complaint Informant: patient Narrative Narrative: Patient is a 68-year-old female with past medical history of hypothyroidism. She states that she awoke Wednesday morning and felt mild pain in her lower mid abdomen and then noticed increased urinary frequency and dysuria. She states she went to an urgent care on Wednesday/the next day and was told she has a UTI. She states she was placed on Macrobid and took a dose Wednesday after picking of the prescription and then before bed. She states she awoke this morning and had multiple bouts of nausea and vomiting as well as noticed a headache. Patient denies any known sick contacts but she states that because of the worsening symptoms she had concerned that the infection was not improving and therefore she comes in for evaluation [facility] Medical History (Updated 12/21/23 @ 02:[address] Michael Harp, DO) Osteoarthritis of right knee Cardiology follow-up encounter Wears glasses Loose, teeth Alcohol use Thyroid disease Arthritis Gastric reflux Former smoker History of atrial fibrillation Hx of fracture of leg Home Medications ???Medication ???Instructions ???Recorded ???Last Taken ???Type ergocalciferol (vitamin D2) 1,250 1,250 mcg PO QMONTH supplement 06/11/21 Unknown History mcg (50,000 unit) capsule (Vitamin D2) levothyroxine 112 mcg tablet 112 mcg PO DAILY thyroid 06/11/21 Unknown History (Synthroid) liothyronine 5 mcg tablet (Cytomel) 5 mcg PO DAILY thyroid 06/11/21 Unknown History metoprolol tartrate 25 mg tablet 25 mg PO BID heart 06/11/21 Unknown History pantoprazole 40 mg tablet,delayed 40 mg PO BID reflux 06/11/21 Unknown History release propafenone 225 mg tablet 225 mg PO Q8H heart 06/11/21 Unknown History vit C 250 mg-vit E 90 mg-zinc 40 1 tab PO BID eye vitamin 06/11/21 Unknown History mg-copper 1 lv-puefro-ethpsp capsule (PreserVision AREDS-2) acetaminophen 500 mg tablet 1,000 mg (2 x 500 mg) PO TID #100 06/26/21 Unknown Rx tabs aspirin 81 mg chewable tablet 81 mg PO BID #60 tabs 06/26/21 Unknown Rx meloxicam 7.5 mg tablet 7.5 mg PO BID #60 tabs 06/26/21 Unknown Rx oxycodone 5 mg tablet 5 - 10 mg (1 - 2 x 5 mg) PO Q4H 06/26/21 Unknown Rx PRN PRN Pain Score 4-10 5 days #60 tabs sennosides 8.6 mg-docusate sodium 2 tab PO BID #20 tabs 06/26/21 Unknown Rx 50 mg tablet (Stool Softener-Stimulant Laxative) ondansetron 4 mg disintegrating 4 mg PO TID PRN nausea and 12/20/23 Unknown Rx tablet vomiting #21 tabs Allergy/AdvReac Type Severity Reaction Status Date / Time codeine Allergy Other Verified 12/20/23 20:05 nickel Allergy Other Verified 12/20/23 20:05 sodium hypochlorite solution Allergy Rash Verified 12/20/23 20:05 (From [employer] Solution) adhesive tape AdvReac Rash Verified 12/20/23 20:05 Surgical History History of total knee arthroplasty Hx of prior ablation treatment History of back surgery Hx of knee surgery Social History Smoking Status: Former smoker ROS ROS ED Constitutional Constitutional ED: Reports chills, fever(s) and subjective Eyes Eyes: Denies blurry vision or change in vision ENT ENT ED: Denies sore throat Cardiovascular Cardiovascular: Denies chest pain Respiratory/Chest Respiratory/Chest: Denies cough or dyspnea Gastrointestinal Gastrointestinal: Reports abdominal pain, nausea and vomiting; Denies diarrhea Genitourinary Genitourinary ED: Reports dysuria and urinary frequency Musculoskeletal Musculoskeletal: Denies myalgias Integumentary Denies rash Neurologic Neurologic: Reports headache(s) Hematologic/Lymphatic Hematologic/Lymphatic: Denies easy bleeding or easy bruising EXAM Physical Exam Const Vital Signs: 12/20/23 20:05 12/20/23 22:00 12/20/23 23:00 Temperature 99.8 F H 98.8 F 98.8 F Temperature Source Oral Oral Oral Pulse Rate 86 76 80 Respiratory Rate 16 18 17 Blood Pressure 137/62 H 132/50 H 140/88 H Blood Pressure Mean 87 77 105 Pulse Ox 100 98 98 Oxygen Delivery Method Room Air Room Air Room Air 12/21/23 00:00 Temperature 98 F Temperature Source Pulse Rate 66 Respiratory Rate 18 Blood Pressure 128/44 H Blood Pressure Mean 72 Pulse Ox 98 Oxygen Delivery Method Positive well nourished and well developed General Appearance ED: well developed; Negative for pallor HEENT Reports dry mucous membranes HEENT Narr (more content not included)... Normal [facility] Lipaseon 12-20-2023 Lipase [Catalytic activity/Vol] 29 U/L Normal 13-75 [facility] Comment on above: Result Comment: Raiza reese note: LIPASE revised reference range effective 22. New Lipase methodology. Expected to produce lower values than the previous assay method. NEW Reference Range: 13 - 75 U/L Performed By: #### L 501.2450 #### [facility] [address] [place], [address] M100.678on 12-20-2023 M100.678 SARS-CoV-2 (COVID 19 ) Negative INFLUENZA A Negative INFLUENZA B Negative RSV PCR Negative Normal [facility] Comment on above: Performed By: #### M 100.678 #### [facility] [address] [place], [address] Urinalysis, Completeon 12-19 BACTERIA 1+ /hpf Normal None Seen [facility] Comment on above: Order Comment: DRISS CTOR TO SPECIFY Performed By: #### L 400.0001 #### [facility] [place], [address] Mucus Ql (Urine sed) 1+ /hpf Normal [facility] Comment on above: Order Comment: DRISS CTOR TO SPECIFY Performed By: #### L 400.0001 #### [facility] [address] [place], [address] RBC 0-5 SEEN Normal 0-5 [facility] Comment on above: Order Comment: DRISS CTOR TO SPECIFY Performed By: #### L 400.0001 #### [facility] [address] [place], [address] WBC 10-25 SEEN Normal 0-5 [facility] Comment on above: Order Comment: DRISS CTOR TO SPECIFY Performed By: #### L 400.0001 #### [facility] [address] [place], [address] EPI,SQUAMOUS 0 SEEN Normal 5-10 [facility] Comment on above: Order Comment: DIRSS CTOR TO SPECIFY Performed By: #### L 400.0001 #### [facility] [address] [place], [address] UA DIP, URINE (POC)on 2023 BILIRUBIN UA (POCT) Negative Negative [facility] CLARITY UA (POCT) Clear [facility] COLOR UA (POCT) Dark yellow [facility] GLUCOSE UA (POCT) 100 mg/dL Abnormal Negative [facility] Hemoglobin Ql (U) Trace-intact Abnormal Negative [facility] Interpretation and review of laboratory results Abnormal [facility] KETONE UA (POCT) 15 mg/dL Abnormal Negative [facility] LEUKOCYTES UA (POCT) Moderate Abnormal Negative [facility] NITRITE UA (POCT) Positive Abnormal Negative [facility] PH UA (POCT) 6.0 4.5 - 8.0 [facility] Protein Ql (U) 30 mg/dL Abnormal Negative [facility] SPECIFIC GRAVITY UA (POCT) 1.020 1.005 - 1.030 [facility] UROBILINOGEN UA (POCT) 1.0 Melody l E.U./dL [facility] [address] [place] [address], [address] [place] [address] POINT OF CARE [facility] FT3on 12-01-2023 Free T3 [Mass/Vol] 1.56 pg/mL Low 2.30-4.00 [facility] Comment on above: Performed By: #### F T3, FT4, TSH #### Corinne [address] [address] FT4on 12-01-2023 Free T4 [Mass/Vol] 0.73 ng/dL Low 0.76-1.46 [facility] ([place]) Comment on above: Performed By: #### F T3, FT4, TSH #### Corinne [address] [address] TSHon 12-01-2023 TSH Qn 1.33 m[IU]/L Normal 0.36-3.74 [facility] ([place]) Comment on above: Performed By: #### F T3, FT4, TSH #### [address] [address] .Auto Diffon 10-11-2023 Basophil, Absolute 0.1 10 3/mcL Normal 0.0-0.2 [facility] ([place]) Comment on above: Performed By: #### A 1C, ADIFF, CMP, CBC, FES, GFR, LIPID, ANEU, FERR #### [address] [address] #### HCV1 #### [address] [address] Basophils/100 WBC (Bld) 2.2 % Normal 0.0-2.5 [facility] ([place]) Comment on above: Performed By: #### A 1C, ADIFF, CMP, CBC, FES, GFR, LIPID, ANEU, FERR #### [address] [address] #### HCV1 #### [address] [address] Eosinophil, Absolute 0.5 10 3/mcL High 0.0-0.4 [facility] ([place]) Comment on above: Performed By: #### A 1C, ADIFF, CMP, CBC, FES, GFR, LIPID, ANEU, FERR #### [address] [address] #### HCV1 #### [address] [address] Eosinophils/100 WBC (Bld) 9.6 % High 0.0-7.0 [facility] ([place]) Comment on above: Performed By: #### A 1C, ADIFF, CMP, CBC, FES, GFR, LIPID, ANEU, FERR #### [address] [address] #### HCV1 #### [address] [address] Lymphocyte, Absolute 1.2 10 3/mcL Normal 0.8-3.9 [facility] ([place]) Comment on above: Performed By: #### A 1C, ADIFF, CMP, CBC, FES, GFR, LIPID, ANEU, FERR #### [address] [address] #### HCV1 #### [address] [address] Lymphocytes/100 WBC (Bld) 21.5 % Normal 10.0-50.0 [facility] ([place]) Comment on above: Performed By: #### A 1C, ADIFF, CMP, CBC, FES, GFR, LIPID, ANEU, FERR #### [address] [address] #### HCV1 #### [address] [address] Monocyte, Absolute 0.6 10 3/mcL Normal 0.2-1.0 [facility] ([place]) Comment on above: Performed By: #### A 1C, ADIFF, CMP, CBC, FES, GFR, LIPID, ANEU, FERR #### [address] [address] #### HCV1 #### [address] [address] Monocytes/100 WBC (Bld) 11.0 % Normal 1.7-13.0 [facility] ([place]) Comment on above: Performed By: #### A 1C, ADIFF, CMP, CBC, FES, GFR, LIPID, ANEU, FERR #### [address] [address] #### HCV1 #### [address] [address] Neutrophils/100 WBC (Bld) 55.7 % Normal 37.0-80.0 [facility] ([place]) Comment on above: Performed By: #### A 1C, ADIFF, CMP, CBC, FES, GFR, LIPID, ANEU, FERR #### [address] [address] #### HCV1 #### [address] [address] .GFRon 10-11-2023 GFR 60 ml/min/1.73sqm Normal [facility] ([place]) Comment on above: Result Comment: GFR Population mean for , Non- Americans Ages 20-29 = 116 mL/min/1.73 sq.m. Ages 30-39 = 107 mL/min/1.73 sq.m. Ages 40-49 = 99 mL/min/1.73 sq.m. Ages 50-59 = 93 mL/min/1.73 sq.m. Ages 60-69 = 85 mL/min/1.73 sq.m. Ages 70+ = 75 mL/min/1.73 sq.m. Chronic Kidney Disease: Less than 60 mL/min/1.73 square meters End Stage Renal Disease: Less than 15 mL/min/1.73 square meters Performed By: #### F T3, FT4, TSH #### [address] [address] GFR Non- 50 ml/min/1.73sqm Normal [facility] ([place]) Comment on above: Result Comment: GFR Population mean for , Non- Americans Ages 20-29 = 116 mL/min/1.73 sq.m. Ages 30-39 = 107 mL/min/1.73 sq.m. Ages 40-49 = 99 mL/min/1.73 sq.m. Ages 50-59 = 93 mL/min/1.73 sq.m. Ages 60-69 = 85 mL/min/1.73 sq.m. Ages 70+ = 75 mL/min/1.73 sq.m. Chronic Kidney Disease: Less than 60 mL/min/1.73 square meters End Stage Renal Disease: Less than 15 mL/min/1.73 square meters Performed By: #### F T3, FT4, TSH #### [address] [address] .NEUABSon 10-11-2023 Neutrophil, Absolute 3.0 10 3/mcL Normal 2.9-6.2 [facility] ([place]) Comment on above: Performed By: #### A 1C, ADIFF, CMP, CBC, FES, GFR, LIPID, ANEU, FERR #### [address] [address] #### HCV1 #### [address] [address] A1Con 10-11-2023 HbA1c (Bld) [Mass fraction] 5.3 % Normal 4.3-6.4 [facility] ([place]) Comment on above: Performed By: #### A 1C, ADIFF, CMP, CBC, FES, GFR, LIPID, ANEU, FERR #### [address] [address] #### HCV1 #### [address] [address] CBCon 10-11-2023 Erythrocyte distribution width (RBC) [Ratio] 16.5 % High 11.5-14.5 [facility] ([place]) Comment on above: Performed By: #### A 1C, ADIFF, CMP, CBC, FES, GFR, LIPID, ANEU, FERR #### [place] [address] #### HCV1 #### [place] [address] Hematocrit (Bld) [Volume fraction] 32.5 % Low 37.0-47.0 [facility] ([place]) Comment on above: Performed By: #### A 1C, ADIFF, CMP, CBC, FES, GFR, LIPID, ANEU, FERR #### [place] [address] #### HCV1 #### [place] [address] Hgb 10.4 G/dL Low 12.0-16.0 [facility] ([place]) Comment on above: Performed By: #### A 1C, ADIFF, CMP, CBC, FES, GFR, LIPID, ANEU, FERR #### [place] [address] #### HCV1 #### [place] [address] MCH (RBC) [Entitic mass] 26.7 pg Low 27.0-31.2 [facility] ([place]) Comment on above: Performed By: #### A 1C, ADIFF, CMP, CBC, FES, GFR, LIPID, ANEU, FERR #### [place] [address] #### HCV1 #### [place] [address] MCHC 32.1 G/dL Low 33.0-37.0 [facility] ([place]) Comment on above: Performed By: #### A 1C, ADIFF, CMP, CBC, FES, GFR, LIPID, ANEU, FERR #### [place] [address] #### HCV1 #### [place] [address] MCV (RBC) [Entitic vol] 83.2 fL Normal 80.0-94.0 [facility] ([place]) Comment on above: Performed By: #### A 1C, ADIFF, CMP, CBC, FES, GFR, LIPID, ANEU, FERR #### [place] [address] #### HCV1 #### [place] [address] Platelet 232 10 3/mcL Normal 130-400 [facility] ([place]) Comment on above: Performed By: #### A 1C, ADIFF, CMP, CBC, FES, GFR, LIPID, ANEU, FERR #### [place] [address] #### HCV1 #### [place] [address] Platelet mean volume (Bld) [Entitic vol] 9.3 fL Normal 7.4-10.4 [facility] ([place]) Comment on above: Performed By: #### A 1C, ADIFF, CMP, CBC, FES, GFR, LIPID, ANEU, FERR #### [place] [address] #### HCV1 #### [place] [address] RBC 3.91 10 6/mcL Low 4.20-5.40 [facility] ([place]) Comment on above: Performed By: #### A 1C, ADIFF, CMP, CBC, FES, GFR, LIPID, ANEU, FERR #### [place] [address] #### HCV1 #### [place] [id number] WBC 5.4 10 3/mcL Normal 4.6-10.8 [facility] ([place]) Comment on above: Performed By: #### A 1C, ADIFF, CMP, CBC, FES, GFR, LIPID, ANEU, FERR #### [address] [address] #### HCV1 #### [address] [address] CMPon 10-11-2023 Albumin Level 3.7 G/dL Normal 3.4-4.8 [facility] ([place]) Comment on above: Performed By: #### F T3, FT4, TSH #### [address] [address] Albumin/Globulin [Mass ratio] 1.1 {ratio} Normal 1.1-2.5 [facility] ([place]) Comment on above: Performed By: #### F T3, FT4, TSH #### [address] [address] ALP [Catalytic activity/Vol] 38 U/L Low 40-135 [facility] ([place]) Comment on above: Performed By: #### F T3, FT4, TSH #### [address] [address] ALT [Catalytic activity/Vol] 19 U/L Normal 14-59 [facility] ([place]) Comment on above: Performed By: #### F T3, FT4, TSH #### [address] [address] AST [Catalytic activity/Vol] 16 U/L Normal 10-40 [facility] ([place]) Comment on above: Performed By: #### F T3, FT4, TSH #### [address] [address] Bili Total 0.6 mg/dL Normal 0.2-1.0 [facility] ([place]) Comment on above: Result Comment: Use of this assay is not recommended for patients undergoing treatment with eltrombopag due to the potential for falsely elevated results. Performed By: #### F T3, FT4, TSH #### [address] [address] BUN/Creatinine Ratio 22 ratio Normal 7-27 [facility] ([place]) Comment on above: Performed By: #### F T3, FT4, TSH #### [address] [address] Calcium [Mass/Vol] 9.0 mg/dL Normal 8.4-10.2 [facility] ([place]) Comment on above: Performed By: #### F T3, FT4, TSH #### [address] [address] Chloride [Moles/Vol] 104 mmol/L Normal 98-107 [facility] ([place]) Comment on above: Performed By: #### F T3, FT4, TSH #### [address] [address] CO2 [Moles/Vol] 28 mmol/L Normal 23-31 [facility] ([place]) Comment on above: Performed By: #### F T3, FT4, TSH #### [address] [address] Creatinine [Mass/Vol] 1.10 mg/dL High 0.55-1.02 [facility] ([place]) Comment on above: Performed By: #### F T3, FT4, TSH #### [address] [address] Electrolyte Balance 6.0 mEq/L Normal 4.0-15.0 [facility] ([place]) Comment on above: Performed By: #### F T3, FT4, TSH #### [address] [address] Globulin 3.4 G/dL Normal [facility] ([place]) Comment on above: Performed By: #### F T3, FT4, TSH #### [address] [address] Glucose [Mass/Vol] 84 mg/dL Normal 80-115 [facility] ([place]) Comment on above: Performed By: #### F T3, FT4, TSH #### [address] [address] Potassium [Moles/Vol] 5.0 mmol/L Normal 3.5-5.1 [facility] ([place]) Comment on above: Performed By: #### F T3, FT4, TSH #### [address] [address] Sodium [Moles/Vol] 138 mmol/L Normal 136-145 [facility] ([place]) Comment on above: Performed By: #### F T3, FT4, TSH #### [address] [address] Total Protein 7.1 G/dL Normal 6.4-8.2 [facility] ([place]) Comment on above: Performed By: #### F T3, FT4, TSH #### [address] [address] Urea nitrogen [Mass/Vol] 24 mg/dL High 7-18 [facility] ([place]) Comment on above: Performed By: #### F T3, FT4, TSH #### [address] [address] Alvin 10-11-2023 Ferritin [Mass/Vol] 19.0 ng/mL Normal 8.0-252.0 [facility] ([place]) Comment on above: Performed By: #### A 1C, ADIFF, CMP, CBC, FES, GFR, LIPID, ANEU, FERR #### [place] [id number] #### HCV1 #### [place] [address] FESon 10-11-2023 Iron [Mass/Vol] 45 ug/dL Low 50-170 [facility] ([place]) Comment on above: Performed By: #### A 1C, ADIFF, CMP, CBC, FES, GFR, LIPID, ANEU, FERR #### [address] [address] #### HCV1 #### [place] [address] Iron Sat 12 % Normal [facility] ([place]) Comment on above: Performed By: #### A 1C, ADIFF, CMP, CBC, FES, GFR, LIPID, ANEU, FERR #### [address] [address] #### HCV1 #### [place] [address] TIBC 375 mcg/dL Normal 250-450 [facility] ([place]) Comment on above: Performed By: #### A 1C, ADIFF, CMP, CBC, FES, GFR, LIPID, ANEU, FERR #### [address] [address] #### HCV1 #### [place] [address] FT3on 10-11-2023 Free T3 [Mass/Vol] 1.88 pg/mL Low 2.30-4.00 [facility] ([place]) Comment on above: Performed By: #### F T3, FT4, TSH #### [address] [address] FT4on 10-11-2023 Free T4 [Mass/Vol] 0.91 ng/dL Normal 0.76-1.46 [facility] ([place]) Comment on above: Performed By: #### F T3, FT4, TSH #### [place] [id number] HCVon 10-11-2023 Hep C Ab Non-Reactive Normal Non-Reacti ve [facility] ([place]) Comment on above: Performed By: #### F T3, FT4, TSH #### [place] [address] Hep C Ab Int Normal [facility] ([place]) Comment on above: Result Comment: Nonr eactive: Samples with a value < 0.80 are considered nonreactive (negative) for antibodies to HCV. A negative test result does not exclude the possibility of exposure to or infection with HCV. HCV antibodies may be undetectable in some stages of the infection and in some clinical conditions. See Interp Performed By: #### F T3, FT4, TSH #### [place]ne [place] [address] [place], [place] [address] LABORATORYOrdered By: SYSTEM SYSTEM on 10-11-2023 Albumin BCP dye [Mass/Vol] 3.7 G/dL Normal 3.4 - 4.8 G/dL AO ADM SS Albumin/Globulin [Mass ratio] 1.1 {ratio} Normal 1.1 - 2.5 ratio AO ADM SS ALP [Catalytic activity/Vol] 38 U/L Low 40 - 135 U/L AO ADM SS ALT With P-5'-P [Catalytic activity/Vol] 19 U/L Normal 14 - 59 U/L AO ADM SS AST With P-5'-P [Catalytic activity/Vol] 16 U/L Normal 10 - 40 U/L AO ADM SS Basophil, Absolute 0.1 103/mcL Normal 0.0 - 0.2 10^3/mcL AO Workflow SS Basophils/100 WBC (Bld) 2.2 % Normal 0.0 - 2.5 % AO Workflow SS Bilirubin [Mass/Vol] 0.6 mg/dL Normal 0.2 - 1 .0 mg/dL AO ADM SS Comment on above: Interpretive Data: U se of this assay is not recommended for patients undergoing treatment with eltrombopag due to the potential for falsely elevated results. Calcium [Mass/Vol] 9.0 mg/dL Normal 8.4 - 10. 2 mg/dL AO ADM SS Chloride [Moles/Vol] 104 mmol/L Normal 98 - 10 7 mmol/L AO ADM SS CO2 [Moles/Vol] 28 mmol/L Normal 23 - 31 mmol/L AO ADM SS Creatinine [Mass/Vol] 1.10 mg/dL High 0.55 - 1.02 mg/dL AO ADM SS Electrolyte Balance 6.0 mEq/L Normal 4.0 - 15 .0 mEq/L AO ADM SS Eosinophil, Absolute 0.5 103/mcL High 0.0 - 0 .4 10^3/mcL AO Workflow SS Eosinophils/100 WBC (Bld) 9.6 % High 0.0 - 7.0 % AO Workflow SS Erythrocyte distribution width (RBC) [Ratio] 16.5 % High 11.5 - 14.5 % AO Workflow SS Ferritin [Mass/Vol] 19.0 ng/mL Normal 8.0 - 252.0 ng/mL AO ADM SS GFR/1.73 sq M.predicted among blacks MDRD (S/P/Bld) [Vol rate/Area] 60 ml/min/1.73sqm Invalid Interpretation Code AO Chemistry S Comment on above: Interpretive Data: GFR Population mean for , Non- Americans Ages 20-29 = 116 mL/min/1.73 sq.m. Ages 30-39 = 107 mL/min/1.73 sq.m. Ages 40-49 = 99 mL/min/1.73 sq.m. Ages 50-59 = 93 mL/min/1.73 sq.m. Ages 60-69 = 85 mL/min/1.73 sq.m. Ages 70+ = 75 mL/min/1.73 sq.m. Chronic Kidney Disease: Less than 60 mL/min/1.73 square meters End Stage Renal Disease: Less than 15 mL/min/1.73 square meters GFR/1.73 sq M.predicted among non-blacks MDRD (S/P/Bld) [Vol rate/Area] 50 ml/min/1.73sqm Invalid Interpretation Code AO Chemistry S Comment on above: Interpretive Data: GFR Population mean for , Non- Americans Ages 20-29 = 116 mL/min/1.73 sq.m. Ages 30-39 = 107 mL/min/1.73 sq.m. Ages 40-49 = 99 mL/min/1.73 sq.m. Ages 50-59 = 93 mL/min/1.73 sq.m. Ages 60-69 = 85 mL/min/1.73 sq.m. Ages 70+ = 75 mL/min/1.73 sq.m. Chronic Kidney Disease: Less than 60 mL/min/1.73 square meters End Stage Renal Disease: Less than 15 mL/min/1.73 square meters Globulin 3.4 G/dL Invalid Interpretation Code AO ADM SS Glucose [Mass/Vol] 84 mg/dL Normal 80 - 115 mg/dL AO ADM SS HbA1c (Bld) [Mass fraction] 5.3 % Normal 4.3 - 6.4 % AO ADM SS Hematocrit (Bld) [Volume fraction] 32.5 % Low 37.0 - 47.0 % AO Workflow SS Hemoglobin (Bld) [Mass/Vol] 10.4 G/dL Low 12.0 - 16.0 G/dL AO Workflow SS Iron [Mass/Vol] 45 ug/dL Low 50 - 170 mcg/dL AO ADM SS Iron binding capacity [Mass/Vol] 375 mcg/dL Normal 250 - 450 mcg/dL AO ADM SS Iron Sat 12 % Invalid Interpretation Code AO ADM SS Lymphocyte, Absolute 1.2 103/mcL Normal 0.8 - 3 .9 10^3/mcL AO Workflow SS Lymphocytes/100 WBC (Bld) 21.5 % Normal 10.0 - 50.0 % AO Workflow SS MCH (RBC) [Entitic mass] 26.7 pg Low 27.0 - 31.2 pg AO Workflow SS MCHC 32.1 G/dL Low 33.0 - 37.0 G/dL AO Workflow SS MCV (RBC) [Entitic vol] 83.2 fL Normal 80.0 - 94.0 fL AO Workflow SS Monocyte, Absolute 0.6 103/mcL Normal 0.2 - 1.0 10^3/mcL AO Workflow SS Monocytes/100 WBC (Bld) 11.0 % Normal 1.7 - 13.0 % AO Workflow SS Neutrophil, Absolute 3.0 103/mcL Normal 2.9 - 6 .2 10^3/mcL AO Workflow SS Neutrophils/100 WBC (Bld) 55.7 % Normal 37.0 - 80.0 % AO Workflow SS Platelet mean volume (Bld) [Entitic vol] 9.3 fL Normal 7.4 - 10.4 fL AO Workflow SS Platelets (Bld) [#/Vol] 232 103/mcL Normal 130 - 400 10^3/mcL AO Workflow SS Potassium [Moles/Vol] 5.0 mmol/L Normal 3.5 - 5.1 mmol/L AO ADM SS Protein [Mass/Vol] 7.1 G/dL Normal 6.4 - 8.2 G/dL AO ADM SS RBC (Bld) [#/Vol] 3.91 106/mcL Low 4.20 - 5.40 10^6/mcL AO Workflow SS Sodium [Moles/Vol] 138 mmol/L Normal 136 - 145 mmol/L AO ADM SS Urea nitrogen [Mass/Vol] 24 mg/dL High 7 - 18 mg/dL AO ADM SS Urea nitrogen/Creatinine [Mass ratio] 22 ratio Normal 7 - 27 ratio AO ADM SS WBC (Bld) [#/Vol] 5.4 103/mcL Normal 4.6 - 10.8 10^3/mcL AO Workflow SS Free T3 [Mass/Vol] 1.88 pg/mL Low 2.30 - 4.00 pg/mL AO ADM SS Free T4 [Mass/Vol] 0.91 ng/dL Normal 0.76 - 1.46 ng/dL AO ADM SS TSH Qn 0.75 m[IU]/L Normal 0.36 - 3.74 mcIU/mL AO ADM SS LABORATORYOrdered By: Jessie Kinsey on 10-11-2023 Cholesterol [Mass/Vol] 198 mg/dL Normal 0 - 2 00 mg/dL AO ADM SS Comment on above: Interpretive Data: C holesterol Reference Interval: Less than 200 Desirable 200-239 Borderline high risk 240 and above High risk Cholesterol in HDL [Mass/Vol] 79 mg/dL High 40 - 60 mg/dL AO ADM SS Cholesterol in LDL [Mass/Vol] 110 mg/dL Normal 0 - 130 mg/dL AO ADM SS Triglyceride [Mass/Vol] 47 mg/dL Normal 0 - 150 mg/dL AO ADM SS Comment on above: Interpretive Data: T riglyceride Reference Interval: Less than 150 Normal 150-199 Borderline high risk 200-499 High risk 500 or higher Very high risk LABORATORYOrdered By: Edwin Pond on 10-11-2023 HCV Ab IA Ql Non-Reactive (10/11/23 9:20 AM) Normal ADM SS HCV Ab IA Ql Nonreactive: Samples with a value < 0.80 are considered nonreactive (negative) for antibodies to HCV.A negative test result does not exclude the possibility of exposure to or infection with HCV. HCV antibodies may be undetectable in some stages of the infection and in some clinical conditions. Invalid Interpretation Code Chemistry S LIPIDon 10-11-2023 Cholesterol [Mass/Vol] 198 mg/dL Normal 0-200 [facility] ([place]) Comment on above: Result Comment: Chol esterol Reference Interval: Less than 200 Desirable 200-239 Borderline high risk 240 and above High risk Performed By: #### F T3, FT4, TSH #### Corinne [address] [place], [place] [address] Cholesterol in HDL [Mass/Vol] 79 mg/dL High 40-60 [facility] ([place]) Comment on above: Performed By: #### F T3, FT4, TSH #### [place] [id number] [place], [place] [address] Cholesterol in LDL [Mass/Vol] 110 mg/dL Normal 0-130 [facility] ([place]) Comment on above: Performed By: #### F T3, FT4, TSH #### Corinne [place] [address] [place], [place] [address] Triglyceride [Mass/Vol] 47 mg/dL Normal 0-150 [facility] ([place]) Comment on above: Result Comment: Trig lyceride Reference Interval: Less than 150 Normal 150-199 Borderline high risk 200-499 High risk 500 or higher Very high risk Performed By: #### F T3, FT4, TSH #### [place] [id number] [place], [place] [address] TSHon 10-11-2023 TSH Qn 0.75 m[IU]/L Normal 0.36-3.74 [facility] ([place]) Comment on above: Performed By: #### F T3, FT4, TSH #### [address] [address] ECG B/O W INTERP (MED OFFICE )on 09-13-2023 Normal sinus rhythm at 60 bpm, NE 180, QRS 100, QTc 400 seconds, normal axis. [facility] ECHOon 06-14-2023 [facility] .GFRon 05-12-2023 GFR Non- 52 ml/min/1.73sqm Normal [facility] ([place]) Comment on above: Result Comment: GFR Population mean for , Non- Americans Ages 20-29 = 116 mL/min/1.73 sq.m. Ages 30-39 = 107 mL/min/1.73 sq.m. Ages 40-49 = 99 mL/min/1.73 sq.m. Ages 50-59 = 93 mL/min/1.73 sq.m. Ages 60-69 = 85 mL/min/1.73 sq.m. Ages 70+ = 75 mL/min/1.73 sq.m. Chronic Kidney Disease: Less than 60 mL/min/1.73 square meters End Stage Renal Disease: Less than 15 mL/min/1.73 square meters Performed By: #### F T3, FT4, TSH #### [address] [address] GFR 63 ml/min/1.73sqm Normal [facility] ([place]) Comment on above: Result Comment: GFR Population mean for , Non- Americans Ages 20-29 = 116 mL/min/1.73 sq.m. Ages 30-39 = 107 mL/min/1.73 sq.m. Ages 40-49 = 99 mL/min/1.73 sq.m. Ages 50-59 = 93 mL/min/1.73 sq.m. Ages 60-69 = 85 mL/min/1.73 sq.m. Ages 70+ = 75 mL/min/1.73 sq.m. Chronic Kidney Disease: Less than 60 mL/min/1.73 square meters End Stage Renal Disease: Less than 15 mL/min/1.73 square meters Performed By: #### F T3, FT4, TSH #### [address] [address] BMPon 05-12-2023 BUN/Creatinine Ratio 9 ratio Normal 7-27 [facility] ([place]) Comment on above: Performed By: #### F T3, FT4, TSH #### [address] [address] Calcium [Mass/Vol] 9.5 mg/dL Normal 8.4-10.2 [facility] ([place]) Comment on above: Performed By: #### F T3, FT4, TSH #### [address] [address] Chloride [Moles/Vol] 105 mmol/L Normal 98-107 [facility] ([place]) Comment on above: Performed By: #### F T3, FT4, TSH #### [address] [address] CO2 [Moles/Vol] 30 mmol/L Normal 23-31 [facility] ([place]) Comment on above: Performed By: #### F T3, FT4, TSH #### [address] [address] Creatinine [Mass/Vol] 1.06 mg/dL High 0.55-1.02 [facility] ([place]) Comment on above: Performed By: #### F T3, FT4, TSH #### [address] [address] Electrolyte Balance 9.0 mEq/L Normal 4.0-15.0 [facility] ([place]) Comment on above: Performed By: #### F T3, FT4, TSH #### [address] [address] Glucose [Mass/Vol] 122 mg/dL High 80-115 [facility] ([place]) Comment on above: Performed By: #### F T3, FT4, TSH #### [address] [address] Potassium [Moles/Vol] 5.3 mmol/L High 3.5-5.1 [facility] ([place]) Comment on above: Performed By: #### F T3, FT4, TSH #### [address] [address] Sodium [Moles/Vol] 144 mmol/L Normal 136-145 [facility] ([place]) Comment on above: Performed By: #### F T3, FT4, TSH #### [address] [address] Urea nitrogen [Mass/Vol] 10 mg/dL Normal 7-18 [facility] ([place]) Comment on above: Performed By: #### F T3, FT4, TSH #### [address] [address] FT3on 05-12-2023 Free T3 [Mass/Vol] 2.31 pg/mL Normal 2.30-4.00 [facility] ([place]) Comment on above: Performed By: #### F T3, FT4, TSH #### [address] [address] FT4on 05-12-2023 Free T4 [Mass/Vol] 1.01 ng/dL Normal 0.76-1.46 [facility] ([place]) Comment on above: Performed By: #### F T3, FT4, TSH #### [place] [place] [address] [place] [address] LABORATORYOrdered By: SYSTEM SYSTEM on 05-12-2023 25-hydroxyvitamin D3 [Mass/Vol] 42.8 ng/mL Invalid Interpretation Code AO ADM SS Comment on above: Interpretive Data: I nterpretive Values Based on Total 25(OH) Vitamin D: Deficient <20 ng/mL Insufficient 20 - <30 ng/mL Sufficient 30-100 ng/mL Calcium [Mass/Vol] 9.5 mg/dL Normal 8.4 - 10. 2 mg/dL AO ADM SS Chloride [Moles/Vol] 105 mmol/L Normal 98 - 10 7 mmol/L AO ADM SS CO2 [Moles/Vol] 30 mmol/L Normal 23 - 31 mmol/L AO ADM SS Creatinine [Mass/Vol] 1.06 mg/dL High 0.55 - 1.02 mg/dL AO ADM SS Electrolyte Balance 9.0 mEq/L Normal 4.0 - 15 .0 mEq/L AO ADM SS Free T3 [Mass/Vol] 2.31 pg/mL Normal 2.30 - 4.00 pg/mL AO ADM SS Free T4 [Mass/Vol] 1.01 ng/dL Normal 0.76 - 1.46 ng/dL AO ADM SS GFR/1.73 sq M.predicted among blacks MDRD (S/P/Bld) [Vol rate/Area] 63 ml/min/1.73sqm Invalid Interpretation Code AO Chemistry S Comment on above: Interpretive Data: GFR Population mean for , Non- Americans Ages 20-29 = 116 mL/min/1.73 sq.m. Ages 30-39 = 107 mL/min/1.73 sq.m. Ages 40-49 = 99 mL/min/1.73 sq.m. Ages 50-59 = 93 mL/min/1.73 sq.m. Ages 60-69 = 85 mL/min/1.73 sq.m. Ages 70+ = 75 mL/min/1.73 sq.m. Chronic Kidney Disease: Less than 60 mL/min/1.73 square meters End Stage Renal Disease: Less than 15 mL/min/1.73 square meters GFR/1.73 sq M.predicted among non-blacks MDRD (S/P/Bld) [Vol rate/Area] 52 ml/min/1.73sqm Invalid Interpretation Code AO Chemistry S Comment on above: Interpretive Data: GFR Population mean for , Non- Americans Ages 20-29 = 116 mL/min/1.73 sq.m. Ages 30-39 = 107 mL/min/1.73 sq.m. Ages 40-49 = 99 mL/min/1.73 sq.m. Ages 50-59 = 93 mL/min/1.73 sq.m. Ages 60-69 = 85 mL/min/1.73 sq.m. Ages 70+ = 75 mL/min/1.73 sq.m. Chronic Kidney Disease: Less than 60 mL/min/1.73 square meters End Stage Renal Disease: Less than 15 mL/min/1.73 square meters Glucose [Mass/Vol] 122 mg/dL High 80 - 115 mg/dL AO ADM SS Parathyrin.intact [Mass/Vol] 64.8 pg/mL Normal 18.5 - 88.0 pg/mL AH ADM SS Potassium [Moles/Vol] 5.3 mmol/L High 3.5 - 5.1 mmol/L AO ADM SS Sodium [Moles/Vol] 144 mmol/L Normal 136 - 145 mmol/L AO ADM SS TSH Qn 0.31 m[IU]/L Low 0.36 - 3.74 mcIU/mL AO ADM SS Urea nitrogen [Mass/Vol] 10 mg/dL Normal 7 - 18 mg/dL AO ADM SS Urea nitrogen/Creatinine [Mass ratio] 9 ratio Normal 7 - 27 ratio AO ADM SS PTHon 05-12-2023 PTH, Intact 64.8 pg/mL Normal 18.5-88.0 [facility] ([place]) Comment on above: Performed By: #### F T3, FT4, TSH #### [address] [address] TSHon 05-12-2023 TSH Qn 0.31 m[IU]/L Low 0.36-3.74 [facility] ([place]) Comment on above: Performed By: #### F T3, FT4, TSH #### [address] [address] VIDHon 05-12-2023 Vit. D 25-Hydroxy 42.8 ng/mL Normal [facility] ([place]) Comment on above: Result Comment: Inte rpretive Values Based on Total 25(OH) Vitamin D: Deficient <20 ng/mL Insufficient 20 - <30 ng/mL Sufficient 30-100 ng/mL Performed By: #### F T3, FT4, TSH #### [id number] [place], [place] [address] XR Knee AP and Lateral and M marcusjulian 07-14-2022 IMPRESSION: 1. 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 Significant anterior soft tissue swelling. Differential includes hematoma and bursitis Business Account Specialist: PSCJyoti Transcribe Date/Time: Jul 14 2022 11:10A Dictated by : MECCA RODRIGUEZ MD This examination was interpreted and the report reviewed and electronically signed by: MECCA RODRIGUEZ MD on Jul 14 2022 11:15AM EST [facility] * * *Final Report* * * DATE OF EXAM: Jul 09 2022 2:31PM KHANH 5208 - XR KNEE 3V AP/LAT/MERCHANT LT / PROCEDURE REASON: M25.562-Left knee pain, unspecified chronicity * * * * Physician Interpretation * * * * PROCEDURE: Left knee INDICATION: Left knee pain, unspecified chronicity .LEFT KNEE PAIN TECHNIQUE: XR KNEE 3V AP/LAT/MERCHANT LT COMPARISON: 02/09/2020 FINDINGS: Stable total knee arthroplasty with long femoral and tibial stems. No evidence for loosening. No periprosthetic fracture. Significant soft tissue swelling anterior to the patella and proximal tibia extending longitudinally for 18 cm. Tiny radiodensities in the soft tissues superior to the patella and anterior to the tibia, little changed. Stable patella yo. [facility] Provider, [facility] - 07/14/2022 * * *Final Report* * * DATE OF EXAM: Jul 09 2022 2:31PM KHANH 5208 - XR KNEE 3V AP/LAT/MERCHANT LT / PROCEDURE REASON: M25.562-Left knee pain, unspecified chronicity * * * * Physician Interpretation * * * * PROCEDURE: Left knee INDICATION: Left knee pain, unspecified chronicity .LEFT KNEE PAIN TECHNIQUE: XR KNEE 3V AP/LAT/MERCHANT LT COMPARISON: 02/09/2020 FINDINGS: Stable total knee arthroplasty with long femoral and tibial stems. No evidence for loosening. No periprosthetic fracture. Significant soft tissue swelling anterior to the patella and proximal tibia extending longitudinally for 18 cm. Tiny radiodensities in the soft tissues superior to the patella and anterior to the tibia, little changed. Stable patella yo. IMPRESSION IMPRESSION: 1. 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 Significant anterior soft tissue swelling. Differential includes hematoma and bursitis Business Account Specialist: PSCJyoti Transcribe Date/Time: Jul 14 2022 11:10A Dictated by : MECCA RODRIGUEZ MD This examination was interpreted and the report reviewed and electronically signed by: MECCA RODRIGUEZ MD on Jul 14 2022 11:15AM EST [facility] XR Knee AP and Lateral and M erchantsOrdered By: Ccf Provider on 07-14-2022 [facility] XR Knee AP and Lateral and M erchantson 07-09-2022 Radiology Study observation (narrative) [facility] Anaerobic cultureOrdered By: Josh Roland on 05-27-2022 Bacteria identified Anaer cx Nom (Unsp spec) No growth in 5 days. [facility] Bacterial body fluid culture Ordered By: Josh Roland on 05-27-2022 Bacteria identified Cx Nom (Body fld) No growth aerobically. [facility] Absolute lymphocyte countOrd ered By: Josh Roland on 05-22-2022 Lymphocytes Auto (Unsp spec) [#/Vol] 1.54 10*3/uL 0.83-4.51 [facility] Basophil percentageOrdered B y: Josh Roland on 05-22-2022 Basophils/100 WBC (Bld) 1.8 % 0-1 [facility] Eosinophils/100 WBC (Bld) 11.7 % 0-5 [facility] Neutrophils (Bld) [#/Vol] 4.8 10*3/uL 2.0-7.7 [facility] Neutrophils/100 WBC (Bld) 58.5 % 47-70 [facility] WBC (Bld) [#/Vol] 8.2 10*3/uL 4.4-11.0 [facility] Blood erythrocytes count (nu mber/volume)Ordered By: Josh Roland on 05-22-2022 RBC (Bld) [#/Vol] 4.30 10*6/uL 4.2-5.4 [facility] Blood hemoglobin measurement (mass/volume)Ordered By: Josh Roland on 05-22-2022 Hemoglobin (Bld) [Mass/Vol] 11.6 g/dL 12.0-15.0 [facility] Blood lymphocytes/100 leukoc ytesOrdered By: Josh Roland on 05-22-2022 Lymphocytes/100 WBC (Bld) 18.8 % 19-41 [facility] Lymphocytes/100 WBC (Bld) 6 % [facility] Blood monocytes/100 leukocyt esOrdered By: Josh Roland on 05-22-2022 Monocytes/100 WBC (Bld) 9.0 % 0-10 [facility] Blood platelet mean volumeOr dered By: Josh Roland on 05-22-2022 Platelet mean volume (Bld) [Entitic vol] 11.6 fL 6.2-12.0 [facility] Color of Synovial fluidOrder ed By: Josh Roland on 05-22-2022 Color (Syn fld) Bloody Pale Yellow [facility] Determination of appearance of synovial fluidOrdered By: Josh Roland on 05-22-2022 Appearance (Syn fld) Cloudy CLEAR [facility] Determination of erythrocyte mean corpuscular volume (MCV)Ordered By: Josh Roland on 05-22-2022 MCV (RBC) [Entitic vol] 86.3 fL 81-99 [facility] Erythrocyte sedimentation ra teOrdered By: Josh Roland on 05-22-2022 ESR (Bld) [Velocity] 4 mm/h 0-30 [facility] Gram stain for investigation of transfusion reactionOrdered By: Josh Roland on 05-22-2022 Microscopic observation Gram stain Nom (Unsp spec) [facility] Hematocrit Auto (Bld) [Volum e fraction]Ordered By: Josh Roland on 05-22-2022 Hematocrit (Bld) [Volume fraction] 37.1 % 37-47 [facility] Laboratory - Hematology and Cell countsOrdered By: Josh Roland on 05-22-2022 Erythrocyte distribution width (RBC) [Entitic vol] 51.8 fL 35.1-43.9 [facility] Erythrocyte distribution width (RBC) [Ratio] 16.4 % 11.6-14.6 [facility] Immature granulocytes/100 WBC (Bld) 0.200 % 0.0-0.9 [facility] Comment on above: IG% - Immature Granu locytes (promyelocytes, myelocytes and metamyelocytes) > 1% indicates that a LEFT SHIFT is Present. MCH (RBC) [Entitic mass] 27.0 pg 27.0-32.0 [facility] Nucleated RBC/100 WBC (Bld) [Ratio] 0 % 0-5 [facility] MCHC Auto (RBC) [Mass/Vol]Or dered By: Josh Roland on 05-22-2022 MCHC (RBC) [Mass/Vol] 31.3 g/dL 32-36 [place] No Panel InformationOrdered By: Josh Roland on 05-22-2022 Synovial Fluid Mononuclear WBCs 0.253 10^3/ul [facility] Synovial Fluid Mononuclear WBCs % 41.5 % [facility] Synovial Fluid Polynuclear WBCs 0.356 10^3/uL [facility] Synovial Fluid Polynuclear WBCs % 58.5 % [facility] Synovial Fluid Total Cells Counted 0.6250 10^3/uL 0.000-0.00 0 [facility] Comment on above: This is the Total Nu mber of Nucleated Cell Types in the Body Fluid. Platelets bldOrdered By: Josh Roland on 05-22-2022 Platelets (Bld) [#/Vol] 317 10*3/uL 150-450 [facility] Qualitative synovial fluid v iscosityOrdered By: Josh Roland on 05-22-2022 Viscosity Ql (Syn fld) Sl. Viscous HIGH [facility] Review by pathologistOrdered By: Josh Roland on 05-22-[address] (Unsp spec) [Interp] Reviewed [facility] Comment on above: Previous reported re sult: May follow Edited by: RGOPATRICIA on 05/25/22:1325Negative for malignant cells.Herman Wang D.O. 05/25/22 AMENDED REPORT 05/25/22 1325 PATH COM/SYFL previously reported as: May follow Serum or plasma C reactive p rotein measurement (mass/volume)Ordered By: Josh Roland on 05-22-2022 CRP [Mass/Vol] mg/L 0.0-3.0 [facility] Comment on above: C-Reactive Protein ( CRP) provides useful information for thediagnosis, therapy and monitoring of inflammatory processesand associated diseases. For the evaluation of Relative Riskfor Cardiovascular Disease, a High Sensitivity CRP (HSCRP)should be ordered. Specimen source identificati on of body fluidOrdered By: Josh Roland on 05-22-2022 Specimen source Nom (Body fld) TNP [facility] Comment on above: Test not performed Synovial fluid erythrocytes count (number/volume)Ordered By: Josh Roland on 05-22-2022 RBC (Syn fld) [#/Vol] 0.043 10^6/uL 0-0 [facility] Synovial fluid leukocytes co unt (number/volume)Ordered By: Josh Roland on 05-22-2022 WBC (Syn fld) [#/Vol] 0.6090 10^3/uL 0.00 0-0.00 2 [facility] Synovial fluid monocyte perc entageOrdered By: Josh Roland on 05-22-2022 Monocytes/100 WBC (Syn fld) 25 % [facility] Synovial fluid neutrophil pe rcentageOrdered By: Josh Roland on 05-22-2022 Neutrophils/100 WBC (Syn fld) 53 % 0-25 [facility] Synovial fluid other cells/1 00 leukocytes identificationOrdered By: Josh Roland on 05-22-2022 Other cells/100 WBC Nom (Syn fld) 16 % [facility] LABORATORYOrdered By: SYSTEM SYSTEM on 05-15-2022 Calcium [Mass/Vol] 9.7 mg/dL Invalid Interpretation Code 8.4 - 10.2 mg/dL AO ADM SS Chloride [Moles/Vol] 102 mmol/L Invalid Interpretation Code 98 - 107 mmol/L AO ADM SS CO2 [Moles/Vol] 30 mmol/L Invalid Interpretation Code 23 - 31 mmol/L AO ADM SS Creatinine [Mass/Vol] 1.12 mg/dL Invalid Interpretation Code 0.55 - 1.02 mg/dL AO ADM SS Electrolyte Balance 8.0 mEq/L Invalid Interpretation Code 4.0 - 15.0 mEq/L AO ADM SS Free T4 [Mass/Vol] 0.99 ng/dL Invalid Interpretation Code 0.76 - 1.46 ng/dL AO ADM SS GFR 59 ml/min/1.73sqm Invalid Interpretation Code AO Chemistry S GFR Non- 49 ml/min/1.73sqm Invalid Interpretation Code AO Chemistry S Glucose [Mass/Vol] 100 mg/dL Invalid Interpretation Code 80 - 115 mg/dL AO ADM SS Parathyrin.intact [Mass/Vol] 63.1 pg/mL Invalid Interpretation Code 18.5 - 88.0 pg/mL AH ADM SS Potassium [Moles/Vol] 5.1 mmol/L Invalid Interpretation Code 3.5 - 5.1 mmol/L AO ADM SS Sodium [Moles/Vol] 140 mmol/L Invalid Interpretation Code 136 - 145 mmol/L AO ADM SS TSH Qn 0.70 m[IU]/L Invalid Interpretation Code 0.36 - 3.74 mcIU/mL AO ADM SS Urea nitrogen [Mass/Vol] 25 mg/dL Invalid Interpretation Code 7 - 18 mg/dL AO ADM SS Urea nitrogen/Creatinine [Mass ratio] 22 ratio Invalid Interpretation Code 7 - 27 ratio AO ADM SS Vit. D 25-Hydroxy 42.4 ng/mL Invalid Interpretation Code AO ADM SS No Panel Informationon 12-22 Culture Urine No growth at 48 hours. [facility] Work Phone: LABORATORYOrdered By: Kaylene Mcelroy on 11-20-2021 Basophil, Absolute 0.2 103/mcL Invalid Interpretation Code 0.0 - 0.2 10^3/mcL AO Workflow SS Basophils/100 WBC (Bld) 3.0 % Invalid Interpretation Code 0.0 - 2.5 % AO Workflow SS Eosinophil, Absolute 0.6 103/mcL Invalid Interpretation Code 0.0 - 0.4 10^3/mcL AO Workflow SS Eosinophils/100 WBC (Bld) 7.8 % Invalid Interpretation Code 0.0 - 7.0 % AO Workflow SS Erythrocyte distribution width (RBC) [Ratio] 16.2 % Invalid Interpretation Code 11.5 - 14.5 % AO Workflow SS Hematocrit (Bld) [Volume fraction] 40.7 % Invalid Interpretation Code 37.0 - 47.0 % AO Workflow SS Hemoglobin (Bld) [Mass/Vol] 13.3 G/dL Invalid Interpretation Code 12.0 - 16.0 G/dL AO Workflow SS Lymphocyte, Absolute 1.3 103/mcL Invalid Interpretation Code 0.8 - 3.9 10^3/mcL AO Workflow SS Lymphocytes/100 WBC (Bld) 18.1 % Invalid Interpretation Code 10.0 - 50.0 % AO Workflow SS MCH (RBC) [Entitic mass] 26.6 pg Invalid Interpretation Code 27.0 - 31.2 pg AO Workflow SS MCHC 32.8 G/dL Invalid Interpretation Code 33.0 - 37.0 G/dL AO Workflow SS MCV (RBC) [Entitic vol] 81.1 fL Invalid Interpretation Code 80.0 - 94.0 fL AO Workflow SS Monocyte distribution width Auto (Bld) [Entitic vol] 15.74 Invalid Interpretation Code 0.00 - 20.00 AO Workflow SS Comment on above: Result Comment: For ED adult patients suspected of sepsis, MDW<=20.0 does not rule out sepsis or risk of sepsis Monocyte, Absolute 0.8 103/mcL Invalid Interpretation Code 0.2 - 1.0 10^3/mcL AO Workflow SS Monocytes/100 WBC (Bld) 10.9 % Invalid Interpretation Code 1.7 - 13.0 % AO Workflow SS Neutrophil, Absolute 4.4 103/mcL Invalid Interpretation Code 2.9 - 6.2 10^3/mcL AO Workflow SS Neutrophils/100 WBC (Bld) 60.2 % Invalid Interpretation Code 37.0 - 80.0 % AO Workflow SS Platelet mean volume (Bld) [Entitic vol] 9.3 fL Invalid Interpretation Code 7.4 - 10.4 fL AO Workflow SS Platelets (Bld) [#/Vol] 318 103/mcL Invalid Interpretation Code 130 - 400 10^3/mcL AO Workflow SS RBC (Bld) [#/Vol] 5.02 106/mcL Invalid Interpretation Code 4.20 - 5.40 10^6/mcL AO Workflow SS WBC 7.3 103/mcL Invalid Interpretation Code 4.6 - 10.8 10^3/mcL AO Workflow SS LABORATORYOrdered By: Seth Bar on 11-20-2021 Calcium [Mass/Vol] 9.0 mg/dL Invalid Interpretation Code 8.4 - 10.2 mg/dL AO ADM SS Chloride [Moles/Vol] 102 mmol/L Invalid Interpretation Code 98 - 107 mmol/L AO ADM SS CO2 [Moles/Vol] 29 mmol/L Invalid Interpretation Code 23 - 31 mmol/L AO ADM SS Creatinine [Mass/Vol] 1.21 mg/dL Invalid Interpretation Code 0.55 - 1.02 mg/dL AO ADM SS Electrolyte Balance 8.0 mEq/L Invalid Interpretation Code 4.0 - 15.0 mEq/L AO ADM SS Glucose [Mass/Vol] 145 mg/dL Invalid Interpretation Code 80 - 115 mg/dL AO ADM SS Potassium [Moles/Vol] 5.0 mmol/L Invalid Interpretation Code 3.5 - 5.1 mmol/L AO ADM SS Sodium [Moles/Vol] 139 mmol/L Invalid Interpretation Code 136 - 145 mmol/L AO ADM SS Troponin I.cardiac DL <= 0.01 ng/mL [Mass/Vol] 6.0 ng/L Invalid Interpretation Code 0.0 - 51.4 ng/L AO ADM SS Urea nitrogen [Mass/Vol] 17 mg/dL Invalid Interpretation Code 7 - 18 mg/dL AO ADM SS Urea nitrogen/Creatinine [Mass ratio] 14 ratio Invalid Interpretation Code 7 - 27 ratio AO ADM SS LABORATORYOrdered By: SYSTEM SYSTEM on 11-20-2021 GFR 54 ml/min/1.73sqm Invalid Interpretation Code AO Chemistry S GFR Non- 45 ml/min/1.73sqm Invalid Interpretation Code AO Chemistry S LABORATORYOrdered By: Gerson Marks on 11-19-2021 Basophil, Absolute 0.0 103/mcL Invalid Interpretation Code 0.0 - 0.2 10^3/mcL AO Workflow SS Basophils/100 WBC (Bld) 0.5 % Invalid Interpretation Code 0.0 - 2.5 % AO Workflow SS Calcium [Mass/Vol] 9.7 mg/dL Invalid Interpretation Code 8.4 - 10.2 mg/dL AO ADM SS Chloride [Moles/Vol] 99 mmol/L Invalid Interpretation Code 98 - 107 mmol/L AO ADM SS CO2 [Moles/Vol] 31 mmol/L Invalid Interpretation Code 23 - 31 mmol/L AO ADM SS Creatinine [Mass/Vol] 1.11 mg/dL Invalid Interpretation Code 0.55 - 1.02 mg/dL AO ADM SS Electrolyte Balance 5.0 mEq/L Invalid Interpretation Code 4.0 - 15.0 mEq/L AO ADM SS Eosinophil, Absolute 0.4 103/mcL Invalid Interpretation Code 0.0 - 0.4 10^3/mcL AO Workflow SS Eosinophils/100 WBC (Bld) 6.5 % Invalid Interpretation Code 0.0 - 7.0 % AO Workflow SS Erythrocyte distribution width (RBC) [Ratio] 15.9 % Invalid Interpretation Code 11.5 - 14.5 % AO Workflow SS Glucose [Mass/Vol] 101 mg/dL Invalid Interpretation Code 80 - 115 mg/dL AO ADM SS Hematocrit (Bld) [Volume fraction] 38.2 % Invalid Interpretation Code 37.0 - 47.0 % AO Workflow SS Hemoglobin (Bld) [Mass/Vol] 12.4 G/dL Invalid Interpretation Code 12.0 - 16.0 G/dL AO Workflow SS Lymphocyte, Absolute 2.2 103/mcL Invalid Interpretation Code 0.8 - 3.9 10^3/mcL AO Workflow SS Lymphocytes/100 WBC (Bld) 32.0 % Invalid Interpretation Code 10.0 - 50.0 % AO Workflow SS MCH (RBC) [Entitic mass] 26.3 pg Invalid Interpretation Code 27.0 - 31.2 pg AO Workflow SS MCHC 32.4 G/dL Invalid Interpretation Code 33.0 - 37.0 G/dL AO Workflow SS MCV (RBC) [Entitic vol] 81.2 fL Invalid Interpretation Code 80.0 - 94.0 fL AO Workflow SS Monocyte distribution width Auto (Bld) [Entitic vol] 16.95 Invalid Interpretation Code 0.00 - 20.00 AO Workflow SS Comment on above: Result Comment: For ED adult patients suspected of sepsis, MDW<=20.0 does not rule out sepsis or risk of sepsis Monocyte, Absolute 0.8 103/mcL Invalid Interpretation Code 0.2 - 1.0 10^3/mcL AO Workflow SS Monocytes/100 WBC (Bld) 11.6 % Invalid Interpretation Code 1.7 - 13.0 % AO Workflow SS Neutrophil, Absolute 3.3 103/mcL Invalid Interpretation Code 2.9 - 6.2 10^3/mcL AO Workflow SS Neutrophils/100 WBC (Bld) 49.4 % Invalid Interpretation Code 37.0 - 80.0 % AO Workflow SS Platelet mean volume (Bld) [Entitic vol] 9.5 fL Invalid Interpretation Code 7.4 - 10.4 fL AO Workflow SS Platelets (Bld) [#/Vol] 273 103/mcL Invalid Interpretation Code 130 - 400 10^3/mcL AO Workflow SS Potassium [Moles/Vol] 4.7 mmol/L Invalid Interpretation Code 3.5 - 5.1 mmol/L AO ADM SS RBC (Bld) [#/Vol] 4.70 106/mcL Invalid Interpretation Code 4.20 - 5.40 10^6/mcL AO Workflow SS Sodium [Moles/Vol] 135 mmol/L Invalid Interpretation Code 136 - 145 mmol/L AO ADM SS Troponin I.cardiac DL <= 0.01 ng/mL [Mass/Vol] 5.7 ng/L Invalid Interpretation Code 0.0 - 51.4 ng/L AO ADM SS TSH Qn 1.70 m[IU]/L Invalid Interpretation Code 0.36 - 3.74 mcIU/mL AO ADM SS Urea nitrogen [Mass/Vol] 18 mg/dL Invalid Interpretation Code 7 - 18 mg/dL AO ADM SS Urea nitrogen/Creatinine [Mass ratio] 16 ratio Invalid Interpretation Code 7 - 27 ratio AO ADM SS WBC 6.8 103/mcL Invalid Interpretation Code 4.6 - 10.8 10^3/mcL AO Workflow SS LABORATORYOrdered By: SYSTEM SYSTEM on 11-19-2021 GFR 60 ml/min/1.73sqm Invalid Interpretation Code AO Chemistry S GFR Non- 49 ml/min/1.73sqm Invalid Interpretation Code AO Chemistry S LABORATORYOrdered By: Anel Barrientos on 11-11-2021 ALT With P-5'-P [Catalytic activity/Vol] 20 U/L Invalid Interpretation Code 14 - 59 U/L AO ADM SS AST With P-5'-P [Catalytic activity/Vol] 22 U/L Invalid Interpretation Code 10 - 40 U/L AO ADM SS Calcium [Mass/Vol] 8.8 mg/dL Invalid Interpretation Code 8.4 - 10.2 mg/dL AO ADM SS Chloride [Moles/Vol] 106 mmol/L Invalid Interpretation Code 98 - 107 mmol/L AO ADM SS CO2 [Moles/Vol] 30 mmol/L Invalid Interpretation Code 23 - 31 mmol/L AO ADM SS Creatinine [Mass/Vol] 1.08 mg/dL Invalid Interpretation Code 0.55 - 1.02 mg/dL AO ADM SS Electrolyte Balance 4.0 mEq/L Invalid Interpretation Code 4.0 - 15.0 mEq/L AO ADM SS Free T3 [Mass/Vol] 2.56 pg/mL Invalid Interpretation Code 2.30 - 4.00 pg/mL AO ADM SS Free T4 [Mass/Vol] 0.99 ng/dL Invalid Interpretation Code 0.76 - 1.46 ng/dL AO ADM SS Glucose [Mass/Vol] 90 mg/dL Invalid Interpretation Code 80 - 115 mg/dL AO ADM SS Potassium [Moles/Vol] 4.9 mmol/L Invalid Interpretation Code 3.5 - 5.1 mmol/L AO ADM SS Sodium [Moles/Vol] 140 mmol/L Invalid Interpretation Code 136 - 145 mmol/L AO ADM SS TSH Qn 0.79 m[IU]/L Invalid Interpretation Code 0.36 - 3.74 mcIU/mL AO ADM SS Urea nitrogen [Mass/Vol] 10 mg/dL Invalid Interpretation Code 7 - 18 mg/dL AO ADM SS Urea nitrogen/Creatinine [Mass ratio] 9 ratio Invalid Interpretation Code 7 - 27 ratio AO ADM SS Vit. D 25-Hydroxy 48.5 ng/mL Invalid Interpretation Code AO ADM SS LABORATORYOrdered By: SYSTEM SYSTEM on 11-11-2021 GFR 62 ml/min/1.73sqm Invalid Interpretation Code AO Chemistry S GFR Non- 51 ml/min/1.73sqm Invalid Interpretation Code AO Chemistry S LABORATORYOrdered By: Gerson Marks on 08-21-2021 Calcium [Mass/Vol] 9.2 mg/dL Invalid Interpretation Code 8.4 - 10.2 mg/dL AO ADM SS Chloride [Moles/Vol] 103 mmol/L Invalid Interpretation Code 98 - 107 mmol/L AO ADM SS CO2 [Moles/Vol] 32 mmol/L Invalid Interpretation Code 23 - 31 mmol/L AO ADM SS Creatinine [Mass/Vol] 0.92 mg/dL Invalid Interpretation Code 0.55 - 1.02 mg/dL AO ADM SS Electrolyte Balance 7.0 mEq/L Invalid Interpretation Code 4.0 - 15.0 mEq/L AO ADM SS Free T3 [Mass/Vol] 2.58 pg/mL Invalid Interpretation Code 2.30 - 4.00 pg/mL AO ADM SS Free T4 [Mass/Vol] 1.17 ng/dL Invalid Interpretation Code 0.76 - 1.46 ng/dL AO ADM SS Glucose [Mass/Vol] 79 mg/dL Invalid Interpretation Code 80 - 115 mg/dL AO ADM SS Potassium [Moles/Vol] 5.2 mmol/L Invalid Interpretation Code 3.5 - 5.1 mmol/L AO ADM SS Sodium [Moles/Vol] 142 mmol/L Invalid Interpretation Code 136 - 145 mmol/L AO ADM SS TSH Qn 1.11 m[IU]/L Invalid Interpretation Code 0.36 - 3.74 mcIU/mL AO ADM SS Urea nitrogen [Mass/Vol] 15 mg/dL Invalid Interpretation Code 7 - 18 mg/dL AO ADM SS Urea nitrogen/Creatinine [Mass ratio] 16 ratio Invalid Interpretation Code 7 - 27 ratio AO ADM SS Vit. D 25-Hydroxy 41.6 ng/mL Invalid Interpretation Code AO ADM SS LABORATORYOrdered By: SYSTEM SYSTEM on 08-21-2021 GFR 74 ml/min/1.73sqm Invalid Interpretation Code AO Chemistry S GFR Non- 61 ml/min/1.73sqm Invalid Interpretation Code AO Chemistry S Parathyrin.intact [Mass/Vol] 91.5 pg/mL Invalid Interpretation Code 18.5 - 88.0 pg/mL AH ADM SS No Panel Informationon 07-08 Citrobacter freundii complex Citrobacter freundii complex [facility] Work Phone: Culture Urine >100,000 cfu/ml Citr obacter freundii complex [facility] Work Phone: LABORATORYOrdered By: Gerson Lujan on 06-09-2021 Basophil, Absolute 0.20 103/mcL Invalid Interpretation Code 0.00 - 0.19 10^3/mcL AO Auto Heme SS Basophils/100 WBC (Bld) 2.6 % Invalid Interpretation Code 0.0 - 2.5 % AO Auto Heme SS Calcium [Mass/Vol] 9.4 mg/dL Invalid Interpretation Code 8.4 - 10.2 mg/dL AO ADM SS Chloride [Moles/Vol] 104 mmol/L Invalid Interpretation Code 98 - 107 mmol/L AO ADM SS Cholesterol [Mass/Vol] 223 mg/dL Invalid Interpretation Code 0 - 200 mg/dL AO ADM SS Cholesterol in HDL [Mass/Vol] 84 mg/dL Invalid Interpretation Code 40 - 60 mg/dL AO ADM SS Cholesterol in LDL [Mass/Vol] 126 mg/dL Invalid Interpretation Code 0 - 130 mg/dL AO ADM SS CO2 [Moles/Vol] 31 mmol/L Invalid Interpretation Code 23 - 31 mmol/L AO ADM SS Creatinine [Mass/Vol] 1.05 mg/dL Invalid Interpretation Code 0.55 - 1.02 mg/dL AO ADM SS Electrolyte Balance 9.0 mEq/L Invalid Interpretation Code 4.0 - 15.0 mEq/L AO ADM SS Eosinophil, Absolute 0.70 103/mcL Invalid Interpretation Code 0.00 - 0.40 10^3/mcL AO Auto Heme SS Eosinophils/100 WBC (Bld) 10.3 % Invalid Interpretation Code 0.0 - 7.0 % AO Auto Heme SS Erythrocyte distribution width (RBC) [Ratio] 15.8 % Invalid Interpretation Code 11.5 - 14.5 % AO Auto Heme SS Glucose [Mass/Vol] 91 mg/dL Invalid Interpretation Code 80 - 115 mg/dL AO ADM SS Hematocrit (Bld) [Volume fraction] 37.0 % Invalid Interpretation Code 37.0 - 47.0 % AO Auto Heme SS Hemoglobin (Bld) [Mass/Vol] 12.3 G/dL Invalid Interpretation Code 12.0 - 16.0 G/dL AO Auto Heme SS Lymphocyte, Absolute 1.40 103/mcL Invalid Interpretation Code 0.77 - 3.85 10^3/mcL AO Auto Heme SS Lymphocytes/100 WBC (Bld) 21.8 % Invalid Interpretation Code 10.0 - 50.0 % AO Auto Heme SS MCH (RBC) [Entitic mass] 28.0 pg Invalid Interpretation Code 27.0 - 31.2 pg AO Auto Heme SS MCHC (RBC) [Mass/Vol] 33.2 G/dL Invalid Interpretation Code 33.0 - 37.0 G/dL AO Auto Heme SS MCV (RBC) [Entitic vol] 84.4 fL Invalid Interpretation Code 80.0 - 94.0 fL AO Auto Heme SS Monocyte, Absolute 0.70 103/mcL Invalid Interpretation Code 0.15 - 1.00 10^3/mcL AO Auto Heme SS Monocytes/100 WBC (Bld) 11.2 % Invalid Interpretation Code 1.7 - 13.0 % AO Auto Heme SS Neutrophil, Absolute 3.50 103/mcL Invalid Interpretation Code 2.85 - 6.16 10^3/mcL AO Auto Heme SS Neutrophils/100 WBC (Bld) 54.1 % Invalid Interpretation Code 37.0 - 80.0 % AO Auto Heme SS Platelet mean volume (Bld) [Entitic vol] 9.3 fL Invalid Interpretation Code 7.4 - 10.4 fL AO Auto Heme SS Platelets (Bld) [#/Vol] 276 103/mcL Invalid Interpretation Code 130 - 400 10^3/mcL AO Auto Heme SS Potassium [Moles/Vol] 5.0 mmol/L Invalid Interpretation Code 3.5 - 5.1 mmol/L AO ADM SS RBC (Bld) [#/Vol] 4.39 106/mcL Invalid Interpretation Code 4.20 - 5.40 10^6/mcL AO Auto Heme SS Sodium [Moles/Vol] 144 mmol/L Invalid Interpretation Code 136 - 145 mmol/L AO ADM SS Triglyceride [Mass/Vol] 64 mg/dL Invalid Interpretation Code 0 - 150 mg/dL AO ADM SS Urea nitrogen [Mass/Vol] 15 mg/dL Invalid Interpretation Code 7 - 18 mg/dL AO ADM SS Urea nitrogen/Creatinine [Mass ratio] 14 ratio Invalid Interpretation Code 7 - 27 ratio AO ADM SS WBC (Bld) [#/Vol] 6.50 103/mcL Invalid Interpretation Code 4.60 - 10.80 10^3/mcL AO Auto Heme SS LABORATORYOrdered By: SYSTEM SYSTEM on 06-09-2021 GFR 64 ml/min/1.73sqm Invalid Interpretation Code AO Chemistry S GFR Non- 53 ml/min/1.73sqm Invalid Interpretation Code AO Chemistry S LABORATORYOrdered By: Neelima Villafuerte on 04-09-2021 Basophil, Absolute 0.10 103/mcL Invalid Interpretation Code 0.00 - 0.19 10^3/mcL AO Auto Heme SS Basophils/100 WBC (Bld) 2.2 % Invalid Interpretation Code 0.0 - 2.5 % AO Auto Heme SS Eosinophil, Absolute 0.50 103/mcL Invalid Interpretation Code 0.00 - 0.40 10^3/mcL AO Auto Heme SS Eosinophils/100 WBC (Bld) 7.7 % Invalid Interpretation Code 0.0 - 7.0 % AO Auto Heme SS Erythrocyte distribution width (RBC) [Ratio] 14.2 % Invalid Interpretation Code 11.5 - 14.5 % AO Auto Heme SS ESR 15 minute reading (Bld) [Velocity] 10 mm/hr Invalid Interpretation Code 0 - 30 mm/hr AO Man Heme SS Hematocrit (Bld) [Volume fraction] 36.6 % Invalid Interpretation Code 37.0 - 47.0 % AO Auto Heme SS Hemoglobin (Bld) [Mass/Vol] 12.2 G/dL Invalid Interpretation Code 12.0 - 16.0 G/dL AO Auto Heme SS Lymphocyte, Absolute 1.70 103/mcL Invalid Interpretation Code 0.77 - 3.85 10^3/mcL AO Auto Heme SS Lymphocytes/100 WBC (Bld) 23.9 % Invalid Interpretation Code 10.0 - 50.0 % AO Auto Heme SS MCH (RBC) [Entitic mass] 28.5 pg Invalid Interpretation Code 27.0 - 31.2 pg AO Auto Heme SS MCHC (RBC) [Mass/Vol] 33.4 G/dL Invalid Interpretation Code 33.0 - 37.0 G/dL AO Auto Heme SS MCV (RBC) [Entitic vol] 85.5 fL Invalid Interpretation Code 80.0 - 94.0 fL AO Auto Heme SS Monocyte, Absolute 0.80 103/mcL Invalid Interpretation Code 0.15 - 1.00 10^3/mcL AO Auto Heme SS Monocytes/100 WBC (Bld) 11.5 % Invalid Interpretation Code 1.7 - 13.0 % AO Auto Heme SS Neutrophil, Absolute 3.80 103/mcL Invalid Interpretation Code 2.85 - 6.16 10^3/mcL AO Auto Heme SS Neutrophils/100 WBC (Bld) 54.7 % Invalid Interpretation Code 37.0 - 80.0 % AO Auto Heme SS Platelet mean volume (Bld) [Entitic vol] 9.6 fL Invalid Interpretation Code 7.4 - 10.4 fL AO Auto Heme SS Platelets (Bld) [#/Vol] 262 103/mcL Invalid Interpretation Code 130 - 400 10^3/mcL AO Auto Heme SS RBC (Bld) [#/Vol] 4.28 106/mcL Invalid Interpretation Code 4.20 - 5.40 10^6/mcL AO Auto Heme SS WBC (Bld) [#/Vol] 6.90 103/mcL Invalid Interpretation Code 4.60 - 10.80 10^3/mcL AO Auto Heme SS LABORATORYOrdered By: Anel Barrientos on 04-09-2021 C-Reactive Protein mg/dL Invalid Interpretation Code 0.0 - 0.9 mg/dL AO Chemistry S Established Visit (Orthopaed ic Surgery)on 11-08-2020 Established Visit (Orthopaedic Surgery) Chief Complaint Patient presents with left knee pain./JL History of Present Illness Patient is a 65-year-old female presents today for 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 Her original knee surgery was in 1974. She is had over 10 surgeries on the left knee including 3 total knee replacements. Her last surgery was about a year ago. She has an allergy to nickel. Her surgery was performed at [facility] in [place]. Her last surgery she had extensor mechanism disruption which they attempted to repair with mesh according to the patient. That is gone on to fail. She does wear a brace occasionally. She remains fairly active despite. She presents today for further evaluation. Adult patient history sheet was filled out by the patient today in clinic and will be scanned into the EMR. This includes Past Medical History, Past Surgical History, Medications, Allergies, Social History, Family History and 30 point review of systems. Awake alert and oriented x3, no acute distress, appears stated age Range of motion from 0-115 degrees Stable to varus/valgus No joint line tenderness to palpation Moderate effusion SILT in a bhavesh/saph/per/tib distribution 1/5 knee extension 4/5 df/pf/ehl dorsalis pedis and posterior tibial pulse no popliteal lymphadenopathy no other overlying lesions mood: euthymic Respirations non labored Well-healed previous surgical scars She does have a large fluid collection which feels like it superficial although could easily communicate with the joint given her history No signs of surrounding infection Plain films were reviewed by myself in clinic today. She has a revision total knee arthroplasty in place with no gross signs of loosening. Alignment appears adequate. Significant patella alto consistent with her patellar tendon disruption. We discussed further conservative treatment with her today in clinic. I think her reconstructive options are extremely limited. I think there is a lot of ways to make her worse than she is now. She remains quite functional. She can continue to wear her brace for stability. We did discuss possible revision extensor mechanism repair and knee fusion. It sounds like at some point they were discussing a flap with her as well. My guess is she does not have much anterior soft tissue to work with in terms of her repair. I do not think further surgery at this time is in her best interest. All of her questions were answered. She will follow-up on an as-needed basis. This note was created using voice recognition software and was not corrected for typographical or grammatical errors.. Active Problems Problems Acid reflux (530.81) (K21.9) Acute UTI (599.0) (N39.0) Anemia (285.9) (D64.9) Atrial fibrillation, unspecified type (427.31) (I48.91) Bee sting allergy (V15.06) (Z91.030) Bursitis of elbow (726.33) (M70.30) Colon cancer screening (V76.51) (Z12.11) Cough (786.2) (R05) Fever (780.60) (R50.9) Hypothyroidism (244.9) (E03.9) Dr. Romo Left knee pain (719.46) (M25.562) Left-sided headache (784.0) (R51.9) Lipid screening (V77.91) (Z13.220) Malaise and fatigue (780.79) (R53.81,R53.83) Medicare annual wellness visit, subsequent (V70.0) (Z00.00) Musculoskeletal pain of left thigh (729.5) (M79.652) OA (osteoarthritis) of knee (715.36) (M17.10) Osteoporosis (733.00) (M81.0) Pain of left femur (733.90) (M89.8X5) Pre-op examination (V72.84) (Z01.818) Urinary symptom or sign (788.99) (R39.9) Past Medical History Problems History of Chronic constipation (564.00) (K59.09) Resolved Date: 28 Nov 2014 History of Common migraine without aura (346.10) (G43.009) Resolved Date: 21 Jan 2016 History of Drusen of macula (362.57) (H35.369) Resolved Date: 28 Nov 2014 History of Femur fracture, left (821.00) (S72.92XA) History of Herniated nucleus pulposus, L4-5 (722.10) (M51.26) Added by Problem List Migration; 2013-04-02 History of esophageal reflux (V12.79) (Z87.19) Resolved Date: 28 Nov 2014 History of gastritis (V12.79) (Z87.19) History of onychomycosis (V12.09) (Z86.19) Resolved Date: 28 Nov 2014 History of osteoarthritis (V13.4) (Z87.39) Resolved Date: 28 Nov 2014 History of uterine fibroid (V13.29) (Z86.018) Coil Tier Dr. Lino History of uterine leiomyoma (V13.29) (Z86.018) History of Hypomagnesemia (275.2) (E83.42) Resolved Date: 21 Jan 2016 History of Raynaud's disease (443.0) (I73.00) Resolved Date: 28 Nov 2014 History of Urinary urgency (788.63) (R39.15) Resolved Date: 21 Jan 2016 Surgical History Problems History of Ant Spinal Diskectomy, Osteophytectomy Lumbar Interspace History of Catheter Ablation twice History of Complete Colonoscopy 2009-no polyps History of Femur Repair 2001 left ORIF History of Knee Replacement Right History of Knee Replacement 1974 AND 1995 Left Knee Partial Knee replacement 2006 Total Knee Replacement x2 History of Knee Surgery L done twice History of Tonsillectomy Hi (more content not included)... [facility] 2 VIEW PA AND LATon CHEST 2 VIEW PA AND LAT Patient Name: BELLA MORILLO STUDY: TH CHEST 2 VIEW PA AND LAT; 04/22/2020 12:18 pm INDICATION: cough, fever, COVID negative. COMPARISON: None. ACCESSION NUMBER(S): [id number] ORDERING CLINICIAN: PRADEEP REDMONDINAL FINDINGS: CARDIOMEDIASTINAL SILHOUETTE: Cardiomediastinal silhouette is normal in size and configuration. LUNGS: Increased interstitial markings lung bases may suggest mild fibrosis or congestion. The findings however are accentuated by superimposed density, and technique. There is blunting of the left costophrenic angle suggesting a small left pleural effusion however pleural fibrosis cannot be excluded. ABDOMEN: No remarkable upper abdominal findings. BONES: No acute osseous changes. IMPRESSION: 1. Increased markings in the lung bases, as noted. 2. Blunting of the left costophrenic angle as described. Electronically signed by: EILEEN RIOS MD Normal [facility] Office Visit (Family Medicpeter glass)on 04-22-2020 Follow-up visit Chief Complaint pt here for dry cough worsening, fatigue on and off fever, nothing today pt tested neg for covid on 04/20. History of Present Illness 64 yo F with h/o hypothyroidism, osteoporosis, osteoarthritis, and paroxysmal atrial fibrillation, here for a dry cough. She called 04/17/20 with symptoms starting 04/16/20 - cough, dyspnea, temp 102, body aches/malaise, headaches, nausea/vomiting. Dr. Gil ordered a test, completed 04/20/20 - which came back negative. Dry cough persists. No vomiting since 04/18/20 Started to improve slightly, intermittently. Feels tight in her chest when she coughs. When breathing she feels a vague crackling sensation, which is worsening over 4 days or so. Deep breathing induces cough so she tends to breathe shallow. Dyspnea with activity. Mild sore throat, dry mouth. Still has her sense of taste and smell. Very low energy level. Temps around 99-100 SpO2 at home - she states it has been in the upper 80s at times. No sinus or ear pain or pressure. Taking acetaminophen AND ibuprofen, cough drops. Active Problems Acid reflux (530.81) (K21.9) Acute UTI (599.0) (N39.0) Anemia (285.9) (D64.9) Atrial fibrillation, unspecified type (427.31) (I48.91) Bee sting allergy (V15.06) (Z91.030) Bursitis of elbow (726.33) (M70.30) Colon cancer screening (V76.51) (Z12.11) Fever (780.60) (R50.9) Hypothyroidism (244.9) (E03.9) Dr. 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 Lino History of uterine leiomyoma (V13.29) (Z86.018) History of Hypomagnesemia (275.2) (E83.42) History of Raynaud's disease (443.0) (I73.00) History of Urinary urgency (788.63) (R39.15) Surgical History History of Ant Spinal Diskectomy, Osteophytectomy Lumbar Interspace History of Catheter Ablation twice History of Complete Colonoscopy 2008-no polyps History of Femur Repair 2001 left ORIF History of Knee Replacement Right History of Knee Replacement 1974 AND 1995 Left Knee Partial Knee replacement 2006 Total Knee Replacement x2 History of Knee Surgery L done twice History of Tonsillectomy History of Tonsillectomy 1961 Family History Family history of Alzheimer's dementia Family history of cardiac disorder (V17.49) (Z82.49) Family history of cardiac disorder (V17.49) (Z82.49) Family history of cardiac pacemaker (V17.49) (Z82.49) Family history of depression (V17.0) (Z81.8) Family history of thyroid disease (V18.19) (Z83.49) Family history of thyroid disease (V18.19) (Z83.49) Family history of Family history of Father Age 61 Family history of cardiac disorder (V17.49) (Z82.49) Family history of cardiac disorder (V17.49) (Z82.49) Family history of coronary artery disease (V17.3) (Z82.49) Family history of coronary artery disease (V17.3) (Z82.49) Family history of hypertension (V17.49) (Z82.49) Family history of hypertension (V17.49) (Z82.49) Family history of Prostate cancer Family history of Prostate cancer Family history of gallbladder disease (V18.59) (Z83.79) Family history of Joint pain Social History Always uses seat belt Caffeine use Education history HS Grad Former smoker (V15.82) (Z87.891) Quit smoking at about 30 years old Occasional alcohol use Occupation Homemaker Pets/Animals: Dog Unemployed, not looking for work Allergies No Known Drug Allergies Recorded By: Geno Callejas; 07/11/2013 11:45:54 AM Bee sting swells up, but is a reaction,; Updated By: Daysi Johnson; 07/11/2013 12:25:03 PM Large Local Reaction Current Meds Nitrofurantoin Monohyd Macro 100 MG Oral Capsule; TAKE 1 CAPSULE EVERY 12 HOURS DAILY; Therapy: [id number] to (Evaluate:[id number]) Requested for: [id number]; Last Rx:[id number] Ordered Rx By: Aida Gil; Dispense: 7 Days ; #:14 Capsule; Refill: 0;For: Acute UTI; PANCHO = N; Verified Transmission to [facility]; Last U (more content not included)... Normal [facility] CORONAVIRUS 2019 BY PCRon SARS-CoV-2 (COVID-19) RNA GABRIELLE+probe Ql (Unsp spec) Not detected Normal Not Detected [facility] Comment on above: Result Comment: . This assay is designed to detect the ORF1ab and/or S genes of SARS-CoV-2 via nucleic acid amplification. A Not Detected result does not preclude 2019-nCoV infection since the adequacy of sample collection and/or low viral burden may result in presence of viral nucleic acids below the clinical sensitivity of this test method. Fact sheet for providers: www.fda.gov/media/514043/download Fact sheet for patients: www.fda.gov/media/255206/download This test has received FDA Emergency Use Authorization (EUA) and has been verified by [facility] ([facility]). This test is only authorized for the duration of time that circumstances exist to justify the authorization of the emergency use of in vitro diagnostic tests for the detection of SARS-CoV-2 virus and/or diagnosis of COVID-19 infection under section 564(b)(1) of the Act, 21 U.S.C. 360bbb-3(b)(1), unless the authorization is terminated or revoked sooner. [facility] is certified under CLIA-88 as qualified to perform high complexity testing. Testing is performed in the [facility] laboratories located at [address] [place] [address]. Performed By: #### C OV19 #### [address] [place] [address] DATE OF SYMPTOM ONSET [YYYYMMDD]? [id number] Normal [facility] Comment on above: Performed By: #### C OV19 #### [place] [address] Covid 19 Resultson 0 SARS-CoV-2 (COVID-19) RNA GABRIELLE+probe Ql (Unsp spec) NEGATIVE COVID-19 Test Coronaviruses are common world-wide and are the cause of many common colds. SARS-COV2 is a new coronavirus that began circulating worldwide in 2019 so we are calling it COVID-19. It has been estimated that four out of five patients with COVID-19 will recover at home without the need for medical attention. Symptoms of COVID-19 include cough, fever, shortness of breath, loss of taste or smell and other flu-like symptoms including chills, sore muscles, sore throat, and headache. Severe illness is more common in older people and people with other health problems such as high blood pressure, obesity, and immune system problems. If the test is positive, you have COVID-19. You will be contacted by the ordering physicians office and instructed to remain on home isolation, in accordance with CDC guidelines. You may also be contacted by the [facility] to see if any of your close contacts may have been exposed to the virus and need to quarantine. If the test is negative, you likely do not have COVID-19 at this time, but you still may have a different illness that can spread to other people (like Influenza, or the Flu) and could still be at risk for getting COVID-19. We recommend that you stay away from other people to limit the spread of illness until your symptoms are improving and you are fever-free for 24 hours without the use of fever lowering medications such as acetaminophen or ibuprofen. No test is 100% accurate so if you are still concerned you may have COVID-19, talk to your doctor about the need to continue to stay away from others. Medicines Acetaminophen (Tylenol and others) is generally safe. Anti-inflammatory medications, such as Ibuprofen (Advil or Motrin) or Naproxen (Aleve) can also be used. Mfoj-kpo-iyqgdut cough and cold medicines can be used according to the instructions on the package. Some jpht-okq-vjhshgw medicines also contain acetaminophen. Make sure you are not taking more than your recommended dose For those not hospitalized, there is no specific treatment available for this illness. Antibiotics do not treat Coronaviruses. Follow-Up Follow up with your doctor by scheduling a virtual visit or consider follow-up at one of our urgent care fever clinics. If you are having difficulty breathing, or are very weak and having difficulty standing, this is a medical emergency. Call 911 or have someone take you to the nearest emergency room immediately. If possible, wear a facemask. Additional guidance from the CDC for patients who tested POSITIVE for COVID-19 How to isolate: Isolate yourself in a specific room at home and limit your contact with others. Use a separate bathroom from other members of the household, when possible. Leave home only to get essential medical care. Do not go to work, school or public areas. Avoid using public transportation, ride-sharing, or taxis. Restrict contact with pets and other animals. If you must care for your pet or be around animals while you are sick, wash your hands before and after your interaction and wear a facemask. Make sure that shared spaces in the home have good airflow, such as by an air conditioner or an opened window, weather permitting. Personal Hygiene Procedures: Wear a face mask when in the same room as other people or pets. If a face mask interferes with your breathing, others should wear a mask when sharing space with you. Frequent hand-washing: wash your hands with soap and water for at least 20 seconds. If soap and water are not available, use alcohol-based hand shipping point inspector. Avoid touching your eyes, nose, and mouth with unwashed hands. Household Hygiene Procedures: Avoid sharing personal household items such as dishes, glassware, cups, eating utensils, towels or bedding with other people or pets in your home. After use, these items should be washed with soap and hot water. Disinfect all high-touch surfaces every day with antibacterial cleaning solutions such as Lysol wipes, bleach, cleansers, etc. High-touch surfaces include tabletops, doorknobs, bathroom fixtures, toilets, phones, keyboards, tablets and bedside tables. Immediately clean any surfaces that may have blood, poop or body fluids on them, using antibacterial cleaning solutions such as Lysol wipes, bleach, cleansers, etc. If clothing or bedding come into contact with blood, poop or body fluids, they should be washed immediately. Follow the directions on the laundry detergent and clothing labels but hot water is recommended when possible. Stopping home isolation precautions: If possible, consult your doctor before stopping home isolation precautions. According to the CDC, you can discontinue home isolation precautions when you have met both of these criteria: Your fever and respiratory symptoms have been gone for 24 hours without the use of any medicines like ibuprofen (Motrin) (more content not included)... Normal [facility] CORONAVIRUS 2019 BY PCRon Lab Specimen Source Nasal, Nasopharyngeal Normal [facility] Comment on above: Performed By: #### C OV19 #### [facility] [address] [place] [address] PHYSICAL THERAPY REPORTon PHYSICAL THERAPY REPORT [facility] OF [address] [address] PHYSICAL THERAPY REPORT Patient: YISELBELLA ZACKARY O M.D. [id number] F Status: DIS RCR PT Discharge Report Dear Doctor: As you know, we are treating this patient in Physical Therapy for her third total knee arthroplasty revision. She returns to the doctor on 01/17/2020. She reports that she is concerned about her left kneecap moving. She called the surgeon regarding this. She was having significant swelling that was very fluid-like and around her knee. She was progressing well besides this. She was able to do the NuStep without upper extremity assistance to the leg press bilaterally was 50 pounds. The physical therapy technician who saw her that date on 01/12/2020, called the doctor's office and spoke with the nurse regarding the significant edema. At this time, we have not heard back from this patient regarding continuing physical therapy. She is currently being discharged. If I can provide you with any further assistance, please do not hesitate to contact me. Sincerely, DATE OF VISIT: Report#: Dict ID [id number] / Int ID [id number] cc: Todd Reyes MD Dictated By: LUPE CERNA P.T. 03/20/20 1309 LUPE CERNA P.T. CC: TODD REYES M.D. << Signature on File>> Reported By: LUPE CERNA P.T. Signed By: LUPE CERNA P.T. Tests performed at: [place] [address] [facility] PHYSICAL THERAPY REPORTon PHYSICAL THERAPY REPORT [facility] OF [address] [address] PHYSICAL THERAPY REPORT Patient: BELLA MORILLO TODD SHAVER M.D. 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 CHIEF COMPLAINT AND FUNCTIONAL LIMITATIONS: 1. Subjective pain level, which the patient rates as a 3/10. 2. Difficulty ambulating. 3. Difficulty bending her knee. 4. Difficulty straightening her knee all the way. 5. Difficulty negotiating stairs and getting in and out of car. 6. Antalgic gait. HISTORY: This patient reports this is her 3rd left total knee replacement. She had 2 in 2006. The 1st one, the bone cement came undone and she ended up with a tibia fracture. The 2nd one was also in 2006. Then on November 08, 2019, she ended up having an entire left total knee replacement, because the 2nd one had failed as well. Her first surgery on that knee was in 1974. She has had 10 surgeries on this knee. Her first was due to a skiing accident, she tore ligaments and cartilage. In 2011, after her first and second total knee replacement she fell and instead of her knee giving loose, her femur shattered just above the knee replacement. She has screws and a plate. Her 2nd one the bone cement came undone again. At this time, the doctor decided that she is allergic to nickel and the other metal used in her past TKR's, which is what they use for the cement. She reports this time her kneecap was also fused to her tibia and they had to create tendons as well. She has not had full range of motion since 2006, but then in 2011 when she broke her femur, her range of motion got even worse. She reports she does not take any pain meds for this. She does not smoke and does not have diabetes. She lives in a two-abner home. She just went up the stairs yesterday for the first time. She has a walk-in shower on each floor. Her laundry is on the first floor. She lives alone. She had a cast for 4 weeks after surgery. She drove on Wednesday for the first time. She does not work. She has no lower extremity specific hobbies. She does have AFib, but no pacemaker. She had 2 ablations for the AFib. She has osteoporosis and her right knee needs to be replaced as well. She also reports she has arthritis in her hands. She had low back surgery and microdiskectomy in 2009 or around that time. PERSONAL FACTORS AND COMORBIDITIES: Back surgery, multiple surgeries on her left knee, osteoporosis, and right knee osteoarthritis with needed knee replacement. EXAMINATION: STRENGTH: This patient demonstrated a left poor quad set. Right lower extremities myotomes were 5/5, however, patient complained of pain with knee flexion and knee extension to the right knee. Hip flexion on the left was a 4/5. Knee flexion was not tested. RANGE OF MOTION: On the left, the patient demonstrated 0-39 degrees of flexion. On the right, the patient demonstrated 0-120 degrees of knee flexion. GAIT: This patient is ambulating with a rolling walker with a step to gait pattern. This patient was unable to lift her left leg on and off the table without assistance of her right foot. She is ambulating with a rolling walker and her left leg in a brace, it is locked at 0-30 degrees of knee flexion. She is walking with a step-to gait pattern abducting her leg due to limited knee flexion. DECISION MAKING: This patient is of low complexity based on above evaluation and history. PROBLEM LIST AND FUNCTIONAL LIMITATIONS: 1. Decreased strength of left lower extremity. 2. Antalgic gait. 3. Inability to lift her left leg in and out of the car, on and off the bed independently. 4. Antalgic gait. 5. Decreased range of motion of the left lower extremity. 6. Pain. SHORT-TERM GOALS: 1. This patient will demonstrate a good quad set within 2 weeks. 2. This patient will demonstrate improved knee flexion to 50 degrees within 2 weeks. LONG-TERM FUNCTIONAL GOALS AND PATIENT-STATED GOALS: 1. The patient will demonstrate knee flexion of the left lower extremity that is 0-120 degrees for functional activities upon discharge. 2. This patient will demonstrate a non-antalgic gait on a variety of surfaces for 5 minutes with least restrictive assistive device upon discharge. 3. This patient will tolerate [id number] from an 18-inch chair repetitively 5 times without upper extremity assistance for age appropriate transfers upon discharge. 4. This patient will negotiate 3 times 4 stairs reciprocally for community and household ambulation upon discharge. 5. This patient will report 75-100% improvement upon discharge. 6. This patient will demonstrate single leg stance on left lower extremity that is 10/10 seconds or better without complaints of pain greater than 2/10 for functional activities and safety upon discharge. CLINICAL PRESENTATION: This patient demonstrates a stable clinical presentation based on above evaluation and history. TREATMENT PLAN: This patient will be seen for stretching, strengthening, patient education, balance, proprioceptive activities, manual therapy, modalities as needed. This plan was discussed with this patient and she agrees to plan on day of evaluation. DISCHARGE PLAN: This patient will be discharged back to Physical Therapy upon completion of all goals set before her, plateau on physical therapy progress, and/or maximizing her current physical therapy prescription. Report#: Dict ID [id number] / Int ID [id number] cc: Todd Reyes MD Dictated By: LUPE CERNA P.T. 12/25/19 1211 LUPE CERNA P.T. CC: TODD REYES M.D. << Signature on File>> Reported By: LUPE CERNA P.T. Signed By: LUPE CERNA P.T. Tests performed at: [address] [address] [facility] BMPon 11-20-2019 Anion gap [Moles/Vol] 14.7 mmol/L Low 15-22 [facility] Comment on above: Performed By: #### L 304.0162, L304.0140 #### [facility] - LAB[facility]ATORY [address] [place] [address] 25550 Calcium [Mass/Vol] 9.0 mg/dL Normal 8.8-10.2 [facility] Comment on above: Performed By: #### L 304.0162, L304.0140 #### [facility] [address] [place] [address] 16222 Chloride [Moles/Vol] 100 mmol/L Normal 98-107 [facility] Comment on above: Performed By: #### L 304.0162, L304.0140 #### [facility] [address] [place] [address] 64251 CO2 [Moles/Vol] 29 mmol/L Normal 22-29 [facility] Comment on above: Performed By: #### L 304.0162, L304.0140 #### - LABORATORY [address] [place] [address] 36966 Creatinine [Mass/Vol] 1.32 mg/dL High 0.50-0.90 [facility] Comment on above: Performed By: #### L 304.0162, L304.0140 #### [facility] - [facility] [address] [place] [address] 01298 eGFR if AFR CLIFF 49 [facility] Comment on above: Result Comment: eGFR >= 60 Indicates normal kidney function. * eGFR IS AN ESTIMATE * (AFR CLIFF = ) (non-AFR AM = NON-) MDRD calculation used in the eGFR should not be used to dose medications. For further limitations of the eGFR please refer to the Physician Website or the National Kidney Disease Education Program website (www.nkdep.nih.gov). Performed By: #### L 304.0162, L304.0140 #### [facility] [address] [place] [address] 54844 eGFR nonAFR Cliff 41 [facility] Comment on above: Performed By: #### L 304.0162, L304.0140 #### [facility] [address] [place] [address] 90502 Glucose [Mass/Vol] 89 mg/dL Normal 82-115 [facility] Comment on above: Performed By: #### L 304.0162, L304.0140 #### [facility] [address] [place] [address] 97019 Potassium [Moles/Vol] 4.7 mmol/L Normal 3.5-5.0 [facility] Comment on above: Performed By: #### L 304.0162, L304.0140 #### [facility] [address] [place] [address] 44584 Sodium [Moles/Vol] 139 mmol/L Normal 135-145 [facility] Comment on above: Performed By: #### L 304.0162, L304.0140 #### [facility] [address] [place] [address] 52590 Urea nitrogen [Mass/Vol] 32 mg/dL High 8-23 [facility] Comment on above: Performed By: #### L 304.0162, L304.0140 #### [facility] [address] [place] [address] 22110 CBCon 11-20-2019 Basophils (Bld) [#/Vol] 0.20 x10(3) High 0.00-0.10 [facility] Comment on above: Performed By: #### L 304.0162, L304.0140 #### [facility] [address] [place] [address] 01189 Basophils/100 WBC (Bld) 2.1 % High 0.0-1.0 [facility] Comment on above: Performed By: #### L 304.0162, L304.0140 #### [facility] [address] [place] [address] 29871 Eosinophils (Bld) [#/Vol] 1.70 x10(3) High 0.00-0.54 [facility] Comment on above: Performed By: #### L 304.0162, L304.0140 #### [facility] [address] [place] [address] 79879 Eosinophils/100 WBC (Bld) 17.9 % High 0.5-4.9 [facility] Comment on above: Performed By: #### L 304.0162, L304.0140 #### [facility] [address] [place] [address] 73469 Erythrocyte distribution width (RBC) [Ratio] 15.7 % Normal 12.5-15.7 [facility] Comment on above: Performed By: #### L 304.0162, L304.0140 #### [facility] [address] [place] [address] 44971 Hematocrit (Bld) [Volume fraction] 33.4 % Low 36.0-48.0 [facility] Comment on above: Performed By: #### L 304.0162, L304.0140 #### [facility] [address] [place] [address] 64301 Hemoglobin (Bld) [Mass/Vol] 10.7 g/dL Low 12.0-16.0 [facility] Comment on above: Performed By: #### L 304.0162, L304.0140 #### [facility] [address] [place] [address] 18812 Lymphocytes (Bld) [#/Vol] 1.60 x10(3) Normal 1.00-3.50 [facility] Comment on above: Performed By: #### L 304.0162, L304.0140 #### [facility] [address] [place] [address] 88421 Lymphocytes/100 WBC (Bld) 17.7 % Normal 16.0-48.0 [facility] Comment on above: Performed By: #### L 304.0162, L304.0140 #### [facility] [address] [place] [address] 56562 MCH (RBC) [Entitic mass] 28.2 pg Low 28.5-32.9 [facility] Comment on above: Performed By: #### L 304.0162, L304.0140 #### [facility] [address] [place] [address] 42770 MCHC (RBC) [Mass/Vol] 32.1 g/dL Low 33.0-36.0 [facility] Comment on above: Performed By: #### L 304.0162, L304.0140 #### [facility] [address] [place] [address] 79912 MCV (RBC) [Entitic vol] 87.7 fL Normal 80.0-99.0 [facility] Comment on above: Performed By: #### L 304.0162, L304.0140 #### [facility] [address] [place] [address] 69233 Monocytes (Bld) [#/Vol] 1.10 x10(3) High 0.30-0.80 [facility] Comment on above: Performed By: #### L 304.0162, L304.0140 #### [facility] [address] [place] [address] 54230 Monocytes/100 WBC (Bld) 11.6 % High 4.3-11.2 [facility] Comment on above: Performed By: #### L 304.0162, L304.0140 #### [facility] [address] [place] [address] 07852 Neutrophils (Bld) [#/Vol] 4.70 x10(3) Normal 1.40-6.50 [facility] Comment on above: Performed By: #### L 304.0162, L304.0140 #### [facility] [address] [place] [address] 15498 Neutrophils/100 WBC (Bld) 50.7 % Normal 45.0-73.0 [facility] Comment on above: Performed By: #### L 304.0162, L304.0140 #### [facility] [address] [place] [address] 97325 Platelet mean volume (Bld) [Entitic vol] 9.2 fL Normal 7.5-9.5 [facility] Comment on above: Performed By: #### L 304.0162, L304.0140 #### [facility] [address] [place] [address] 30592 Platelets (Bld) [#/Vol] 362 X10(3) Normal 150-450 [facility] Comment on above: Performed By: #### L 304.0162, L304.0140 #### [facility] [address] [place] [address] 19613 RBC (Bld) [#/Vol] 3.80 x10(6) Normal 3.30-5.00 [facility] Comment on above: Performed By: #### L 304.0162, L304.0140 #### [facility] [address] [place] [address] 51792 WBC (Bld) [#/Vol] 9.3 x10(3) Normal 4.5-10.0 [facility] Comment on above: Performed By: #### L 304.0162, L304.0140 #### - LABORATORY [address] [place] [address] 27554 MANUAL DIFFon 11-20-2019 Basophils/100 WBC (Bld) 1 % Normal 0-1 [facility] Comment on above: Performed By: #### L 304.0162, L304.0140 #### [facility] [address] [place] [address] 95145 Eosinophils/100 WBC (Bld) 20 % High 1-5 [facility] Comment on above: Performed By: #### L 304.0162, L304.0140 #### - LABORATORY [address] [place] [address] 29517 Lymphocytes/100 WBC (Bld) 18 % Normal 16-48 [facility] Comment on above: Performed By: #### L 304.0162, L304.0140 #### [facility] [address] [place] [address] 50611 MONOS 13 % High 4-12 [facility] Comment on above: Performed By: #### L 304.0162, L304.0140 #### [facility] - [facility] [address] [place] [address] 86787 Platelets (Bld) [#/Vol] NORMAL [facility] Comment on above: Performed By: #### L 304.0162, L304.0140 #### - LABORATORY [address] [place] [address] 91993 RBC morphology finding Nom (Bld) NORMAL [facility] Comment on above: Performed By: #### L 304.0162, L304.0140 #### [facility] - [facility] [address] [place] [address] 17980 SEGS 48 % Normal 45-73 [facility] Comment on above: Performed By: #### L 304.0162, L304.0140 #### [facility] - [facility] [address] [place] [address] [facility] Comment on above: Performed By: #### L 304.0162, L304.0140 #### [facility] [address] [place] [address] CLINICAL RESUMEon 11-13-2019 CLINICAL RESUME [facility] [place] [address] HEALTH INFORMATION MANAGEMENT CLINICAL RESUME Patient: BELLA MORILLO ZASABRINA Sparrow M.D. [id number] F Status: DIS IN [facility] 3920-B Date of Admission: 11/08/19 Date of Discharge: 11/10/19 ADMITTING DIAGNOSIS: Aseptic loosening of the left knee. 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 CONSULTATION: Hospitalist. PROCEDURES: Reconstruction of the left extensor mechanism with Marlex polypropylene mesh as well as all components revision of the left total knee arthroplasty. COMPLICATION: None. HISTORY AND HOSPITAL COURSE: The patient is a 64-year-old female who has had a very complex surgical history of the left knee including multiple surgeries and revisions for loosening of her total knee implants. She was worked up for infection, found to be negative, workup for metal sensitivity and found to be sensitive to nickel and vanadium. She elected after thorough discussion of the risks, benefits, and alternatives to undergo revision and indicated procedures of the left lower extremity. This procedure was performed and postoperatively the patient has recovered as expected. She has remained stable and has been afebrile with stable vitals and does not require a blood transfusion. She did not have any kidney injury. Hospitalist was consulted and followed along during her case to ensure that her medical comorbidities have been manage. She has graduated from physical therapy given her weightbearing restriction and can be discharged in stable condition. DISCHARGE PLAN: Condition upon discharge is stable. ACTIVITY: Partial weightbearing left lower extremity, rolling walker for ambulation. DIET: Regular, preoperative diet. Date of next appointment will be 2 weeks from her date of surgery. MEDICATIONS AT DISCHARGE: Routine pain ladder, please see discharge materials included with the patient's chart. Briefly, she will be on Eliquis 2.5 mg p.o. b.i.d. for DVT prophylaxis as well as Pepcid 40 mg daily for GI prophylaxis. We will place her on acetaminophen 1000 mg p.o. t.i.d. as well as Celebrex 200 mg p.o. b.i.d. as well as Lyrica 50 mg p.o. t.i.d. as well as tramadol 50 mg p.o. t.i.d. p.r.n. pain 5-7/10 as well as oxycodone 5 mg p.o. t.i.d. for pain 7-10/10 as well as Minocin 100 mg b.i.d. for antibiotic prophylaxis. Issues to be addressed at followup will be a cast change and a wound check. Report#: Dict ID [id number] / Int ID [id number] 11/14/19 1221 TODD REYES M.D. cc: TODD REYES M.D. << Signature on File>> Reported By: TODD REYES M.D. Signed By: TODD REYES M.D. Tests performed at: [place] [address] [facility] PROGRESS NOTEon 11-13-2019 PROGRESS NOTE [facility] [place] [address] HEALTH INFORMATION MANAGEMENT PROGRESS NOTE Patient: BELLA MORILLO TODD REYES M.D. [id number] F Status: DIS IN [facility] 3920-B DATE OF PROGRESS NOTE: 11/10/2019 SUBJECTIVE: The patient is resting in bed at the time of interview, in no apparent distress with the left lower extremity elevated appropriately on pillows. She states that the foot feels better after bivalving of the cast. She still has some pins and needles sensation in the bottom of the foot, but she does endorse that her sensation is improving and that the pins and needles are improving. She has been upgraded the 50 mg of Lyrica and she is tolerating this well. We also talked about putting her on Eliquis for her risk of DVT within a long- leg cast. OBJECTIVE: VITAL SIGNS: She is currently afebrile with stable vitals. All of her lab work was within normal limits or stable today. She has no concerns from that regard. EXTREMITIES: She has left lower extremity which is in a long-leg cast, which is now bivalved. She has a Prevena wound VAC which was transitioned to the home unit and has no leakage alarm. She has sensation intact to light touch over superficial and deep peroneal nerve distribution at the foot, but she does explain that this sensation is diminished. She also has sensation intact to light touch over the plantar foot, but she also states that this sensation is associated with some sensation of pins and needles. Dorsiflexion, plantar flexion, EHL, and FHL are 5/5 in the left lower extremity. Her dorsalis pedis pulse is palpable and symmetric. IMAGING: No new imaging was obtained for this encounter. ASSESSMENT AND PLAN: This is a 64-year-old female status post complex revision of the left knee. All components with a reconstruction of her extensor mechanism using a Marlex polypropylene mesh and a long -leg cast in the left lower extremity. 1. Multimodal pain therapy. 2. Incentive spirometry. 3. Vitals per protocol. 4. Regular diet. 5. Partial weightbearing, left lower extremity. 6. Rolling walker for ambulation. 7. Eliquis 2.5 mg b.i.d. for DVT prophylaxis as long as she is on the left lower extremity long-leg cast. 8. Home health after discharge. 9. Plan is for discharge today. Report#: Dict ID [id number] / Int ID [id number] TODD REYES M.D. cc: TODD REYES M.D. << Signature on File>> Reported By: TODD REYES M.D. Signed By: TODD REYES M.D. Tests performed at: [address] [address] [facility] BMPon 11-10-2019 Anion gap [Moles/Vol] 14.4 mmol/L Low 15- [facility] Comment on above: Performed By: #### L 200.3001, L200.3190 #### [facility] - [facility] [address] [place] [address] 77995 Calcium [Mass/Vol] 8.4 mg/dL Low 8.8-10.2 [facility] Comment on above: Performed By: #### L 200.3001, L200.3190 #### [facility] - [facility] [address] [place] [address] 36651 Chloride [Moles/Vol] 105 mmol/L Normal 98-107 [facility] Comment on above: Performed By: #### L 200.3001, L200.3190 #### [facility] - [facility] [address] [place] [address] 72625 CO2 [Moles/Vol] 24 mmol/L Normal 22-29 [facility] Comment on above: Performed By: #### L 200.3001, L200.3190 #### [facility] - [facility] [address] [place] [address] 37531 Creatinine [Mass/Vol] 0.91 mg/dL High 0.50-0.90 [facility] Comment on above: Performed By: #### L 200.3001, L200.3190 #### [facility] - [facility] [address] [place] [address] 09283 eGFR if AFR CLIFF > 60 ml/min/1.73m2 Normal [facility] Comment on above: Result Comment: eGFR >= 60 Indicates normal kidney function. * eGFR IS AN ESTIMATE * (AFR CLIFF = ) (non-AFR AM = NON-) MDRD calculation used in the eGFR should not be used to dose medications. For further limitations of the eGFR please refer to the Physician Website or the National Kidney Disease Education Program website (www.nkdep.nih.gov). Performed By: #### L 200.3001, L200.3190 #### [facility] - [facility] [address] [place] [address] 37427 eGFR nonAFR Cliff > 60 ml/Min/1.73m2 Normal [facility] Comment on above: Performed By: #### L 200.3001, L200.3190 #### [facility] - [facility] [address] [place] [address] 09786 Glucose [Mass/Vol] 98 mg/dL Normal 82-115 [facility] Comment on above: Performed By: #### L 200.3001, L200.3190 #### [facility] - [facility] [address] [place] [address] 19718 Potassium [Moles/Vol] 4.4 mmol/L Normal 3.5-5.0 [facility] Comment on above: Performed By: #### L 200.3001, L200.3190 #### [facility] [address] [place] [address] 53032 Sodium [Moles/Vol] 139 mmol/L Normal 135-145 [facility] Comment on above: Performed By: #### L 200.3001, L200.3190 #### [facility] - [facility] [address] [place] [address] 25674 Urea nitrogen [Mass/Vol] 14 mg/dL Normal 8-23 [facility] Comment on above: Performed By: #### L 200.3001, L200.3190 #### [facility] - [facility] [address] [place] [address] 27468 CBCon 11-10-2019 Basophils (Bld) [#/Vol] 0.10 x10(3) Normal 0.00-0.10 [facility] Comment on above: Performed By: #### L 304.0162, L304.0140 #### [facility] [address] [place] [address] 69222 Basophils/100 WBC (Bld) 0.9 % Normal 0.0-1.0 [facility] Comment on above: Performed By: #### L 304.0162, L304.0140 #### [facility] [address] [place] [address] 32694 Eosinophils (Bld) [#/Vol] 0.80 x10(3) High 0.00-0.54 [facility] Comment on above: Performed By: #### L 304.0162, L304.0140 #### [facility] [address] [place] [address] 17810 Eosinophils/100 WBC (Bld) 11.7 % High 0.5-4.9 [facility] Comment on above: Performed By: #### L 304.0162, L304.0140 #### [facility] [address] [place] [address] 86839 Erythrocyte distribution width (RBC) [Ratio] 15.2 % Normal 12.5-15.7 [facility] Comment on above: Performed By: #### L 304.0162, L304.0140 #### [facility] [address] [place] [address] 41157 Hematocrit (Bld) [Volume fraction] 29.2 % Low 36.0-48.0 [facility] Comment on above: Performed By: #### L 304.0162, L304.0140 #### [facility] [address] [place] [address] 00993 Hemoglobin (Bld) [Mass/Vol] 9.5 g/dL Low 12.0-16.0 [facility] Comment on above: Performed By: #### L 304.0162, L304.0140 #### [facility] [address] [place] [address] 89080 Lymphocytes (Bld) [#/Vol] 1.00 x10(3) Normal 1.00-3.50 [facility] Comment on above: Performed By: #### L 304.0162, L304.0140 #### [facility] [address] [place] [address] 31683 Lymphocytes/100 WBC (Bld) 14.2 % Low 16.0-48.0 [facility] Comment on above: Performed By: #### L 304.0162, L304.0140 #### [facility] [address] [place] [address] 05839 MCH (RBC) [Entitic mass] 28.6 pg Normal 28.5-32.9 [facility] Comment on above: Performed By: #### L 304.0162, L304.0140 #### [facility] - [facility] [address] [place] [address] 97870 MCHC (RBC) [Mass/Vol] 32.5 g/dL Low 33.0-36.0 [facility] Comment on above: Performed By: #### L 304.0162, L304.0140 #### [facility] - [facility] [address] [place] [address] 54885 MCV (RBC) [Entitic vol] 88.1 fL Normal 80.0-99.0 [facility] Comment on above: Performed By: #### L 304.0162, L304.0140 #### [facility] [address] [place] [address] 93414 Monocytes (Bld) [#/Vol] 1.20 x10(3) High 0.30-0.80 [facility] Comment on above: Performed By: #### L 304.0162, L304.0140 #### ML [facility] [address] [place] [address] 18710 Monocytes/100 WBC (Bld) 16.0 % High 4.3-11.2 [facility] Comment on above: Performed By: #### L 304.0162, L304.0140 #### [facility] [address] [place] [address] 82141 Neutrophils (Bld) [#/Vol] 4.10 x10(3) Normal 1.40-6.50 [facility] Comment on above: Performed By: #### L 304.0162, L304.0140 #### [facility] [address] [place] [address] 91924 Neutrophils/100 WBC (Bld) 57.2 % Normal 45.0-73.0 [facility] Comment on above: Performed By: #### L 304.0162, L304.0140 #### - LABORATORY [address] [place] [address] 23953 Platelet mean volume (Bld) [Entitic vol] 9.1 fL Normal 7.5-9.5 [facility] Comment on above: Performed By: #### L 304.0162, L304.0140 #### [facility] - [facility]ATORY [address] [place] [address] [place] [address] Platelets (Bld) [#/Vol] 149 X10(3) Low 150-450 [facility] Comment on above: Performed By: #### L 304.0162, L304.0140 #### [facility] - [facility] [address] [place] [address] [place] [address] RBC (Bld) [#/Vol] 3.31 x10(6) Normal 3.30-5.00 [facility] Comment on above: Performed By: #### L 304.0162, L304.0140 #### [facility] - [facility] [address] [place] [address] [place] [address] WBC (Bld) [#/Vol] 7.2 x10(3) Normal 4.5-10.0 [facility] Comment on above: Performed By: #### L 304.0162, L304.0140 #### [facility] - [facility] [address] [place] [address] [place] [address] VITAMIN Don 11-10-2019 VITAMIN D 28.4 ng/mL Low 30-100 [facility] Comment on above: Order Comment: ADD O N Performed By: #### L 200.3001, L200.3190 #### [facility] - [facility] [address] [place] [address] [place] [address] BMPon 11-09-2019 Anion gap [Moles/Vol] 13.4 mmol/L Low 15-22 [facility] Comment on above: Performed By: #### L 100.0010 #### [facility] - [facility] [address] [place] [address] [place] [address] Calcium [Mass/Vol] 7.9 mg/dL Low 8.8-10.2 [facility] Comment on above: Performed By: #### L 100.0010 #### [facility] - [facility] [address] [place] [address] [place] [address] Chloride [Moles/Vol] 106 mmol/L Normal 98-107 [facility] Comment on above: Performed By: #### L 100.0010 #### [facility] - [facility] [address] [place] [address] 54443 CO2 [Moles/Vol] 23 mmol/L Normal 22-29 [facility] Comment on above: Performed By: #### L 100.0010 #### [facility] - [facility] [address] [place] [address] 07682 Creatinine [Mass/Vol] 1.04 mg/dL High 0.50-0.90 [facility] Comment on above: Performed By: #### L 100.0010 #### [facility] - [facility]ATORY [address] [place] [address] 77226 eGFR if AFR CLIFF > 60 ml/min/1.73m2 Normal [facility] Comment on above: Result Comment: eGFR >= 60 Indicates normal kidney function. * eGFR IS AN ESTIMATE * (AFR CLIFF = ) (non-AFR AM = NON-) MDRD calculation used in the eGFR should not be used to dose medications. For further limitations of the eGFR please refer to the Physician Website or the National Kidney Disease Education Program website (www.nkdep.nih.gov). Performed By: #### L 100.0010 #### [facility] [address] [place] [address] 11983 eGFR nonAFR [place] [facility] Comment on above: Performed By: #### L 100.0010 #### [facility] [address] [place] [address] 80110 Glucose [Mass/Vol] 92 mg/dL Normal 82-115 [facility] Comment on above: Performed By: #### L 100.0010 #### [facility] [address] [place] [address] 23039 Potassium [Moles/Vol] 4.4 mmol/L Normal 3.5-5.0 [facility] Comment on above: Performed By: #### L 100.0010 #### [facility] [address] [place] [address] 12611 Sodium [Moles/Vol] 138 mmol/L Normal 135-145 [facility] Comment on above: Performed By: #### L 100.0010 #### ML [facility] [address] [place] [address] 09843 Urea nitrogen [Mass/Vol] 17 mg/dL Normal 8-23 [facility] Comment on above: Performed By: #### L 100.0010 #### [facility] [address] [place] [address] 73106 CBCon 11-09-2019 Basophils (Bld) [#/Vol] 0.10 x10(3) Normal 0.00-0.10 [facility] Comment on above: Performed By: #### L 304.0162, L304.0140 #### ML [facility] [address] [place] [address] 70034 Basophils/100 WBC (Bld) 0.7 % Normal 0.0-1.0 [facility] Comment on above: Performed By: #### L 304.0162, L304.0140 #### [facility] [address] [place] [address] 03762 Eosinophils (Bld) [#/Vol] 0.80 x10(3) High 0.00-0.54 [facility] Comment on above: Performed By: #### L 304.0162, L304.0140 #### [facility] [address] [place] [address] 82551 Eosinophils/100 WBC (Bld) 10.5 % High 0.5-4.9 [facility] Comment on above: Performed By: #### L 304.0162, L304.0140 #### [facility] [address] [place] [address] 47307 Erythrocyte distribution width (RBC) [Ratio] 15.3 % Normal 12.5-15.7 [facility] Comment on above: Performed By: #### L 304.0162, L304.0140 #### [facility] [address] [place] [address] 01525 Hematocrit (Bld) [Volume fraction] 29.6 % Low 36.0-48.0 [facility] Comment on above: Performed By: #### L 304.0162, L304.0140 #### [facility] [address] [place] [address] 23676 Hemoglobin (Bld) [Mass/Vol] 9.7 g/dL Low 12.0-16.0 [facility] Comment on above: Performed By: #### L 304.0162, L304.0140 #### [facility] [address] [place] [address] 64030 Lymphocytes (Bld) [#/Vol] 0.80 x10(3) Low 1.00-3.50 [facility] Comment on above: Performed By: #### L 304.0162, L304.0140 #### [facility] [address] [place] [address] 53759 Lymphocytes/100 WBC (Bld) 9.3 % Low 16.0-48.0 [facility] Comment on above: Performed By: #### L 304.0162, L304.0140 #### [facility] [address] [place] [address] 51887 MCH (RBC) [Entitic mass] 29.1 pg Normal 28.5-32.9 [facility] Comment on above: Performed By: #### L 304.0162, L304.0140 #### [facility] [address] [place] [address] 80311 MCHC (RBC) [Mass/Vol] 32.9 g/dL Low 33.0-36.0 [facility] Comment on above: Performed By: #### L 304.0162, L304.0140 #### [facility] [address] [place] [address] 84839 MCV (RBC) [Entitic vol] 88.5 fL Normal 80.0-99.0 [facility] Comment on above: Performed By: #### L 304.0162, L304.0140 #### [facility] [address] [place] [address] 73078 Monocytes (Bld) [#/Vol] 1.00 x10(3) High 0.30-0.80 [facility] Comment on above: Performed By: #### L 304.0162, L304.0140 #### [facility] [address] [place] [address] 64740 Monocytes/100 WBC (Bld) 13.0 % High 4.3-11.2 [facility] Comment on above: Performed By: #### L 304.0162, L304.0140 #### [facility] [address] [place] [address] 34529 Neutrophils (Bld) [#/Vol] 5.30 x10(3) Normal 1.40-6.50 [facility] Comment on above: Performed By: #### L 304.0162, L304.0140 #### ML [facility] [address] [place] [address] 08301 Neutrophils/100 WBC (Bld) 66.5 % Normal 45.0-73.0 [facility] Comment on above: Performed By: #### L 304.0162, L304.0140 #### [facility] [address] [place] [address] 61089 Platelet mean volume (Bld) [Entitic vol] 9.1 fL Normal 7.5-9.5 [facility] Comment on above: Performed By: #### L 304.0162, L304.0140 #### [facility] [address] [place] [address] 79923 Platelets (Bld) [#/Vol] 147 X10(3) Low 150-450 [facility] Comment on above: Performed By: #### L 304.0162, L304.0140 #### [facility] [address] [place] [address] 09769 RBC (Bld) [#/Vol] 3.34 x10(6) Normal 3.30-5.00 [facility] Comment on above: Performed By: #### L 304.0162, L304.0140 #### ML [facility] [address] [place] [address] 85316 WBC (Bld) [#/Vol] 8.0 x10(3) Normal 4.5-10.0 [facility] Comment on above: Performed By: #### L 304.0162, L304.0140 #### [facility] [address] [place] [address] OPERATIVE REPORTon 0 [place] [address] HEALTH INFORMATION MANAGEMENT OPERATIVE REPORT Patient: BELLA MORILLO TODD REYES M.D. [id number] F Status: DIS IN [facility] 3920-B DATE OF SURGERY: 11/08/2019 SURGEON: Todd Reyes MD PREOPERATIVE DIAGNOSES: Left knee aseptic loosening and arthrofibrosis and symptomatic hardware and metal sensitivity to multiple alloys and atrial fibrillation and hypothyroidism. 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 PROCEDURE: Revision of left total knee arthroplasty with explantation of existing total knee and tibial and femoral and patellar component revision of the left knee with extensor mechanism reconstruction using a Marlex polypropylene mesh of the left knee and complex wound closure of the left knee. PRIMER WATERPROOFING MACHINE ADJUSTER: Satish Tang PA-C. ANESTHESIOLOGIST: Asiya Kulkarni MD ANESTHESIA TYPE: General endotracheal anesthesia. ESTIMATED BLOOD LOSS: 400 mL. BLOOD PRODUCTS ADMINISTERED: None. URINE OUTPUT: 300 mL. FLUIDS: Per Anesthesia record. IMPLANTS: Aesculap Glascock 177 mm press-fit femoral stem with a size 5 femoral component and a size 14 partially constrained polyethylene liner and a size 4 tibial component and a size 132 mm press-fit stem and a size 4 patellar button as well as a Marlex polypropylene mesh and antibiotic cement for the left knee. SPECIMENS: 3 cultures were sent from different portions of the knee for culture to the microbiology lab and a frozen section was sent which was returned during the case. INTRAOPERATIVE FINDINGS: There was a negative frozen section with 0 PMNs per high-power field. There was extensive metaphyseal bone loss in the femur and the tibia. There was no significant polyethylene wear on the explanted polyethylene component. 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 This as well as the patient's osteolysis rendered her unable to be performed a tibial tubercle osteotomy as this procedure would be contraindicated. During exposure, the patella did break free of the proximal tibia rendering her extensor mechanism incompetent. The tibial component was grossly loose. The joint surface was not grossly loose and required flexible osteotomes to be removed. However , after removal of the tibial component which was obviously subsided on x-rays, the stem was able to be removed by hand. The femoral component remained well fixed. There was extensive scarring throughout the knee including both the extensor mechanism at the quadriceps muscle as well as the IT band and the lateral vastus. There was a soft tissue deficiency anteriorly. Once the knee was mobilized over the lateral retinaculum and at the distal portion of the medial retinaculum which necessitated a fractional lengthening of the medial retinaculum to cover and the lateral retinaculum was then unable to be covered during the procedure. A very large anterior wound flap was made for the soft tissues given the patient 's old scar and in order to mobilize the tissues for closure required advancement of tissue for closure. INDICATIONS FOR THE PROCEDURE: The patient is a 64-year-old female who has had by her count 9 surgeries to the left knee. Beginning in 2006, she had an unicompartmental arthroplasty which loosened, followed by conversion to a total knee arthroplasty which loosened, followed by revision knee arthroplasty which has now loosened and she also in 2011 had supracondylar periprosthetic distal femur fracture which was treated with a lateral locking plate at an outside facility, which is symptomatic. She states that she has never really had great range of motion after any of these procedures. However, her primary complaint at this time is pain in the knee every time she takes a step. She was worked up in clinic for infection and her alpha-1 defensin as well as her inflammatory markers were found to be negative for infection. She was worked up for loosening with a bone scan and her tibial component was found to be loose. There is also concern that the femoral component is also loose as there was uptake in the distal femur. She was extensively counseled throughout this process and it was eventually determined that we should send a metal sensitivities panel on this patient and that lab actually returned positive for sensitivity to both nickel and vanadium, which are both commonly employed in orthopedic implants and both are employed in the type of implants that are currently within her knee and the ones that have been used in the past. No less than 5 hours of time was spent in direct [id number] consultation with this patient prior to deciding to proceed with her operation. It was made very clear that her surgery was extensive and was probably her final option as far as surgical procedures and that this particular procedure is considered a heroic effort in an attempt to improve her condition. Her surgical goals were improvement of the pain as the primary goal and hopefully improvement of range of motion as the secondary goal. The risks, benefits, and alternatives of such a procedure were discussed at length with the patient and she elected to proceed with the operation. The risks discussed were the following, but not limited to pain, bleeding, scarring, infection, failure of the procedure, need for other procedures, damage to anatomic structures, damage or deformity to the limb. It is possible that the procedure would be unsuccessful given her long track record of other unsuccessful surgeries in the past. She understands that there is risk involved with anesthesia as well as the postoperative thrombotic complications and despite an extensive conversation regarding the risks of surgery, wished to proceed. Also notably extensive preoperative planning was put into this procedure as her situation is very complex. PROCEDURE IN DETAIL: The patient was identified in the preoperative holding area and the left lower extremity was identified and marked by the operative team. The consent was reviewed and all questions were answered. The patient was then transferred to the operative suite and placed supine on the operating room table, after which general endotracheal anesthesia was administered. The left lower extremity was prepped and draped in standard sterile surgical fashion after which a time-out was performed according to [facility] protocol. A tourniquet was inflated to 250 mmHg after the limb was exsanguinated using an Nicolas and a 10 blade scalpel was used to exploit her prior well-healed anterior surgical scar. Care was taken not to violate a skin bridge to facilitate later wound healing. The dissection was carried sharply through the subcutaneous tissues to the level of the extensor mechanism. A medial parapatellar arthrotomy was created using previously implanted Ethibond sutures which were still visible to recreate the arthrotomy. 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 A tibial tubercle osteotomy was considered at this point. We did not complete the tibial tubercle osteotomy and turned our attention to a synovectomy. A medial synovectomy was performed and a suprapatellar synovectomy was performed and a lateral synovectomy was performed to the extent that the lateral synovium was visible and when the knee was flexed, the patella fractured from the proximal tibia rendering her extensor mechanism incompetent. At this point, the synovectomy was completed and soft tissue releases were completed to reestablish the gutters. The lateral distal femur plate was exposed within the wound and frozen section had been sent and returned with 0 PMNs per high-powered field at this point. A small oscillating bone saw and a sagittal reciprocating saw were used to score the femoral component and flexible osteotomes were used to dislodge the femoral component from the bone and a tamp was used to remove the femoral component. The femoral component was removed intact and the cement mantle was left on the bone for later removal. During removal, the cement mantle was found that the patient had severe osteopenia behind the femoral component which was later filled with bone cement. Turning our attention to the proximal tibia, the polyethylene component was able to easily be removed intact and showed no surface wear. There was not any significant backside wear and the polyethylene liner was not loose prior to removal. The tibial component was not loose enough that the joint surface could be removed with a tamp. However, after some brief work with the flexible osteotome, the tibia component was also loosened and was able to be removed with gentle tamping. At this point, the joint surface was intact and there was intact bone cement mantle. It was noted underneath the cement mantle that there was severe osteopenia within the bone, specifically the portion of the bone, which would be in contact with the trunnion of the revision tibial device. 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 The bone around the cemented stem was extremely osteopenic and the stem was able to be removed by hand. This left a significant metaphyseal and diaphyseal bone defects which were later reamed when preparing for the press-fit implant. At this point, attention was turned to the lateral distal femur plate and lateral distal femur plate was removed using a small percutaneous incision to get a screwdriver to the screws. All the screws were removed intact. The plate was able to be removed intact. Fluoroscopy was used to ensure that the femur was still intact. The bone was healed and there was an anterior femoral defect through which the intramedullary canal was visible. Otherwise, the femur had circumferential healing at the level of the supracondylar fracture. Using the aforementioned implant system, the femoral and tibial canals were reamed until there was good solid endosteal chatter and a trial implant was placed. The tibial sizing was done and the tibial offset was determined. Attention was turned to the femur and it was reamed until good endosteal chatter was obtained and a trial implant was obtained and the femoral offset was determined. Trial implants with a size 14 polyethylene liner were inserted. The knee was tight and it was appropriately balanced in extension but slightly loose in flexion. At this point, we adjusted the femoral offset so that the condyles were slightly more posterior and the flexion-extension mismatch. The patellar component was removed and then the new patellar component was drilled with the aforementioned implant system. The patella trial was placed and the patella was tracking appropriately, although the extensor mechanism was not intact and this was not reliable at that time. A 20 cm polypropylene mesh was tubularized on the back table, so that it was 8 layers thick and it was held with 0 Ethibond sutures for graft preparation. The implants were assembled on the back table according to the well-balanced template, which were removed. The cancellous surfaces of the bone were pulse lavaged and debrided. All of the metaphyseal cement was debrided and the bone void in the metaphysis were cleaned out using combination of curette and rongeur and Jackie. After we had removed all of the unstable bone from the metaphysis of the distal femur and the proximal tibia, the cement was mixed and impregnated into the distal 5 cm of the polypropylene mesh. A metaphyseal cone was created out of cement and placed on the dry backside of the implant and then the implant was press-fit into the tibia and impacted into place. Excess bone cement was removed and the cement was allowed to cure. At this point, we turned our attention to the femoral component, which was inserted in the same way. It was assembled on the back table prior to mixing the cement, and then after the cement became doughy, metaphyseal cone was created on the dry backside of the femoral prosthesis and it was press-fit into place. Given the uncemented nature of the stem, extreme care was taken to ensure that no cement was placed onto the angular surface of the implants neither the tibia or the femur. The cement was simply used as a metaphyseal void filler. The polypropylene mesh was tested manually for stability after the cement was allowed to cure and it was found to be very stable and well fixed. At this point, the trial 14 mm polyethylene liner was placed and the knee was taken through range of motion and found to be very well balanced. The knee was irrigated using gentle pulsatile irrigation 3 L of normal saline, followed by vancomycin-polymyxin mixture. The definitive polyethylene liner was then impacted into place and the set screw was deployed with the implant systems torque wrench. At this point, the polypropylene graft was unitized with the patella and the lateral vastus. The muscle layer was closed in a [id number] fashion with the medial vastus being advanced over the polypropylene mesh graft. This was done using #5 Ethibond sutures. After the advancement of the medial vastus, the edges of the construct were closed using a 0 Vicryl to smooth out the edges and allow for the potential for better tissue gliding. At this point, the tissues were injected using ropivacaine, epinephrine, clonidine , and ketorolac solution. This was used for postoperative pain control. The medial retinacular tissue was fractionally released to facilitate arthrotomy closure. There was a retinacular void over the lateral retinaculum which could not be repaired. This was covered over with the subcutaneous tissue advancement. The skin was then closed in layers using a 0 Vicryl for gross reapproximation, followed by a 2-0 Vicryl for the subcutaneous layer, followed by a 3-0 Monocryl in a running subcutaneous fashion for the skin. The wound was cleaned using sterile saline and then dressed using a Prevena arthro incisional wound VAC system. A long-leg cast was placed on the left lower extremity with the knee in extension. The patient was transferred back onto her hospital bed and emerged from general anesthesia without complication. Physician assistant boys track coach, Satish Tang, was present throughout the procedure, helped with patient positioning and retraction during the case and wound closure. Report#: Dict ID [id number] / Int ID [id number] 11/14/19 1221 _ TODD REYES M.D. cc: TODD REYES M.D. << Signature on File>> Reported By: TODD REYES M.D. Signed By: TODD REYES M.D. Tests performed at: [facility] [address] [place], [place] [address] [facility] PROGRESS NOTEon 11-09-2019 PROGRESS NOTE [facility] [place] [address] HEALTH INFORMATION MANAGEMENT PROGRESS NOTE Patient: BELLA MORILLO TODD REYES M.D. [id number] F Status: DIS IN [facility] 3920-B DATE OF PROGRESS NOTE: 11/09/2019 TIME: 7:30 a.m. SUBJECTIVE: The patient is resting in bed, in no apparent distress. Pain has been controlled overnight with the intraoperative block that was administered during surgery and her oral pain medication regimen. She denies new chest pain or shortness of breath. She does complain of tingling and decreased sensation in the left foot. OBJECTIVE: GENERAL: The patient is afebrile with stable vitals as of the morning and is in no apparent distress. EXTREMITIES: Left lower extremity has a long-leg cast, which is intact with no evidence of skin complications at the margins. She is able to exhibit dorsiflexion, plantar flexion, and EHL with 5/5 strength in the left lower extremity. She has subjectively decreased sensation over the plantar portion of the foot. There is intact sensation over the superficial peroneal nerve distribution. The patient does have intact pain sensation when challenged at the foot. She also has intact sensation to deep touch at the foot throughout all her nerve distributions. Skin is warm, well perfused with palpable symmetrical dorsalis pedis pulse. IMAGING: Postoperative images of the left knee were reviewed with the patient and significant for well-fixed, well-aligned press-fit revision long-stem prosthesis with a resolution of patella [place] after extensor mechanism reconstruction using Marlex mesh with a metaphyseal bone void filled with cement. The components are in appropriate alignment. It does not appear that the cast is encroaching upon the soft tissues. ASSESSMENT AND PLAN: This is a 64-year-old female status post left knee revision with removal of lateral plate and extensor mechanism reconstruction who is stable postoperatively. 1. Multimodal pain therapy. 2. Incentive spirometry. 3. Vitals per protocol. 4. Regular diet. 5. Partial weightbearing, left lower extremity. No flexion or range of motion of the left knee. Rolling walker for ambulation. Physical therapy for ambulation training. Currently, vitals and labs are stable. We will continue to monitor the patient and allow her to work with Physical Therapy. Expectant management will be for her decreased sensation over the tibial nerve in the left foot. Given the presence of intraoperative block which has yet to wear off. We will reassess throughout the day and if necessary, we can make adjustments to her cast such as bivalves. At this point, I have little concern for iatrogenic nerve injury given the patient's intact motor function in the left lower extremity and intact sensation in the superficial peroneal distribution. She has 5/5 plantar flexion and is able to exhibit also dorsiflexion and EHL function. She did not have a flexion contracture or valgus deformity that was corrected intraoperatively. At this point, I believe that the most common etiology for the decreased sensation in the foot is the block. We will follow along closely. Please call with questions. Report#: Dict ID [id number] / Int ID [id number] TODD REYES M.D. cc: TODD REYES M.D. << Signature on File>> Reported By: TODD REYES M.D. Signed By: TODD REYES M.D. Tests performed at: [address] [address] [facility] ANAEROBEon 11-08-2019 [facility] ORGANISM 1: NO ANAEROBES ISOLATED ORGANISM 1: NO GROWTH [facility] Comment on above: Performed By: #### L 200.3001, L200.0450 #### [facility] [address] [place] [address] 95785 ANAEROBE SUPRA-PATELLAR ORGANISM 1: NO ANAEROBES ISOLATED ORGANISM 1: NO GROWTH [facility] Comment on above: Performed By: #### L 304.0162, L304.0140 #### [facility] [address] [place] [address] 12165 ANAEROBE Comment: FAT PAD ORGANISM 1: NO ANAEROBES ISOLATED ORGANISM 1: NO GROWTH [facility] Comment on above: Performed By: #### L 304.0162, L304.0140 #### [facility] [address] [place] [address] 62416 KNEE NON-INJURY (1-2 VIEWS)o n 11-08-2019 KNEE NON-INJURY (1-2 VIEWS) [place] [address] Name: BELLA MORILLO Luciano Phys: SATISH TANG PA-C : [birth year] Age: 64 Sex: F Acct: [id number] Loc: [facility] Exam Date: 11/08/19 Status: ADM IN Radiology No.: [id number] Unit Number: [id number] Exam # Type/Exam [id number] RAD / KNEE NON-INJURY (1-2 VIEWS) LT XR KNEE NON-INJURY (1-2 VIEWS) CLINICAL STATEMENT: Postoperative left knee. COMPARISON: None FINDINGS: Placement of a long medullary phalange left total knee arthroplasty prosthesis displays anatomic alignment. Multiple dorsal postoperative changes including subcutaneous and intramuscular emphysema as well as overlying immobilization cast are noted. No acute fracture or dislocation is identified. The joint spaces are maintained. IMPRESSION: Interval placement of left knee prosthesis without immediate postoperative complication. Electronically signed by: Sin Edwards MD 11/08/2019 6:19 PM CDT < > Reported By: SIN EDWARDS M.D. Signed In PowerScribe By: SIN EDWARDS M.D. << Signature on File>> Reported By: SIN EDWARDS M.D. Signed By: SIN EDWARDS M.D. Tests performed at: [place] [address] [facility] KNEE NON-INJURY (1-2 VIEWS) [address] [place] [address] Name: BELLA MORILLO Phys: TODD REYES M.D. : [birth year] Age: 64 Sex: F Acct: [id number] Loc: [facility] Exam Date: 11/08/19 Status: ADM IN Radiology No.: [id number] Unit Number: [id number] Exam # Type/Exam [id number] RAD / KNEE NON-INJURY (1-2 VIEWS) LT XR KNEE NON-INJURY (1-2 VIEWS) Procedure: XR KNEE 1 view Clinical: Loosening of a total left knee prosthesis. Hardware removal. Comparison: None. Technique: Fluoroscopy time: 21.4 seconds Images: 1 Radiation dose: 4.18 mGy Findings: Single intraoperative image demonstrates removal of the femoral component of a total left knee prosthesis. Impression: Intraoperative fluoroscopic services provided for removal of the femoral component of a total left knee prosthesis. Electronically signed by: Jaye Zepeda MD 11/09/2019 7:41 AM CDT < > Reported By: JAYE ZEPEDA M.D. Signed In PowerScribe By: JAYE ZEPEDA M.D. << Signature on File>> Reported By: JAYE ZEPEDA M.D. Signed By: JAYE ZEPEDA M.D. Tests performed at: [place] [address] [facility] PTon 11-08-2019 INR Coag (PPP) [Relative time] 1.2 {INR} [facility] Comment on above: Order Comment: Comme nt: POD 12 Result Comment: CO UMADIN PROTOCOLS INR values are generated for use in patients on coumadin. INR values stabilize 7 days after the start of coumadin or changes in coumadin dosage. The usual TARGET/INR range is: INDICATION INR RANGE Prophylaxis/treatment of: Venous Thrombosis, Pulmonary Embolism 2.0-3.0 Prevention of systemic embolism from: Tissue heart valves 2.0-3.0 Acute myocardial infarction (to prevent systemic embolism) 2.0-3.0 AMI (to prevent recurrent ND) 2.5-3.5 Valvular heart disease 2.0-3.0 Atrial fibrillation 2.0-3.0 Mechanical prosthetic valves (high risk) 2.5-3.5 Bileaflet mechanical valve in aortic position 2.0-3.0 Presence of Lupus Anticoagulant or Antiphospholipid Antibodies 2.5-3.5 PANIC VALUE: GREATER THAN OR EQUAL TO 4.5 Performed By: #### L 200.1602 #### [facility] [address] [place] [address] PT Coag (PPP) [Time] 13.6 s High 9.4-12.5 [facility] Comment on above: Order Comment: Comme nt: POD 12 Performed By: #### L 200.1602 #### [facility] [address] [place] [address] 64511 SURGICALon 11-08-2019 SURGICAL OTHER - MEDIAL SYNOV IAL TISSUE....FROZEN FINAL DIAGNOSIS: SYNOVIUM, MEDIAL, BIOPSY: BENIGN SYNOVIAL TISSUE WITH PATCHY SURFACE ROUGHENING AND FOCI OF CALCIUM PYROPHOSPHATE (PSEUDOGOUT) CRYSTAL DEPOSITION. NO ACUTE INFLAMMATION (NEUTROPHILS) IDENTIFIED. Dictated by: CODI SNEED M.D. MICROSCOPIC DESCRIPTION: Slides examined. AJ/danielle 11/09/2019 FROZEN SECTION DIAGNOSIS: FROZEN SECTION FROM DR. SNEED TO DR. REYES ON MEDIAL SYNOVIAL TISSUE: NO NEUTROPHILS IDENTIFIED. GROSS DESCRIPTION: Labeled medial synovial tissue frozen. Received fresh is an irregular segment of white-garcía soft tissue, which measures 4 x 2 x 0.5 cm. No areas of white-garcía exudative material are identified. 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 The remaining tissue is submitted in cassette A2 for permanent only. [facility] CLINICAL DATA: PROCEDURE: Medial synovial tissue PRE-OP: Not given POST-OP: Not given HISTORY: N/A Signed *Electronically Signed* CODI SNEED M.D. 11/09/19 1234 [facility] Comment on above: Performed By: #### L 304.0162, L304.0140 #### [facility] [address] [place] [address] [id number] 11-07-2019 COVID19 SEE SEPARATE REPORT [facility] Comment on above: Result Comment: SPEC IMEN SENT TO A MISCELLANEOUS LAB SEE SCANNED RESULTS FOR TESTING FACILITY INFORMATION TYPE AND SCREENon 11-07-2019 AB SCRN Negative [facility] Comment on above: Performed By: #### B 100.0700 #### [facility] [address] [place] [address] 45494 BLD TYPE Negative [facility] Comment on above: Performed By: #### B 100.0700 #### [facility] [address] [place] [address] 08958 Free T4on 11-05-2019 Free T4 [Mass/Vol] 1.13 ng/dL Normal 0.93-1.7 [facility] Comment on above: Performed By: #### L 304.0162, L304.0140 #### [facility] [address] [place] [address] 84224 TSHon 11-05-2019 TSH Qn 0.89 uIU/mL Normal 0.27-4.20 [facility] Comment on above: Performed By: #### L 304.0162, L304.0140 #### [facility] [address] [place] [address] 31477 CBCon 10-23-2019 Basophils (Bld) [#/Vol] 0.10 x10(3) Normal 0.00-0.10 [facility] Comment on above: Performed By: #### L 200.3001, L200.3190 #### [facility] [address] [place] [address] 70772 Basophils/100 WBC (Bld) 1.9 % High 0.0-1.0 [facility] Comment on above: Performed By: #### L 200.3001, L200.3190 #### [facility] [address] [place] [address] 34883 Eosinophils (Bld) [#/Vol] 0.70 x10(3) High 0.00-0.54 [facility] Comment on above: Performed By: #### L 200.3001, L200.3190 #### [facility] [address] [place] [address] 58520 Eosinophils/100 WBC (Bld) 10.2 % High 0.5-4.9 [facility] Comment on above: Performed By: #### L 200.3001, L200.3190 #### [facility] [address] [place] [address] 38872 Erythrocyte distribution width (RBC) [Ratio] 15.2 % Normal 12.5-15.7 [facility] Comment on above: Performed By: #### L 200.3001, L200.3190 #### [facility] [address] [place] [address] 95740 Hematocrit (Bld) [Volume fraction] 37.7 % Normal 36.0-48.0 [facility] Comment on above: Performed By: #### L 200.3001, L200.3190 #### [facility] [address] [place] [address] 50436 Hemoglobin (Bld) [Mass/Vol] 12.1 g/dL Normal 12.0-16.0 [facility] Comment on above: Performed By: #### L 200.3001, L200.3190 #### [facility] [address] [place] [address] 95869 Lymphocytes (Bld) [#/Vol] 1.40 x10(3) Normal 1.00-3.50 [facility] Comment on above: Performed By: #### L 200.3001, L200.3190 #### [facility] [address] [place] [address] 55063 Lymphocytes/100 WBC (Bld) 21.5 % Normal 16.0-48.0 [facility] Comment on above: Performed By: #### L 200.3001, L200.3190 #### [facility] [address] [place] [address] 50926 MCH (RBC) [Entitic mass] 28.7 pg Normal 28.5-32.9 [facility] Comment on above: Performed By: #### L 200.3001, L200.3190 #### [facility] [address] [place] [address] 79890 MCHC (RBC) [Mass/Vol] 32.1 g/dL Low 33.0-36.0 [facility] Comment on above: Performed By: #### L 200.3001, L200.3190 #### [facility] [address] [place] [address] 37409 MCV (RBC) [Entitic vol] 89.2 fL Normal 80.0-99.0 [facility] Comment on above: Performed By: #### L 200.3001, L200.3190 #### [facility] [address] [place] [address] 31290 Monocytes (Bld) [#/Vol] 0.80 x10(3) Normal 0.30-0.80 [facility] Comment on above: Performed By: #### L 200.3001, L200.3190 #### [facility] [address] [place] [address] 41585 Monocytes/100 WBC (Bld) 11.2 % Normal 4.3-11.2 [facility] Comment on above: Performed By: #### L 200.3001, L200.3190 #### [facility] [address] [place] [address] 16882 Neutrophils (Bld) [#/Vol] 3.70 x10(3) Normal 1.40-6.50 [facility] Comment on above: Performed By: #### L 200.3001, L200.3190 #### [facility] [address] [place] [address] 33549 Neutrophils/100 WBC (Bld) 55.2 % Normal 45.0-73.0 [facility] Comment on above: Performed By: #### L 200.3001, L200.3190 #### [facility] [address] [place] [address] 93989 Platelet mean volume (Bld) [Entitic vol] 9.4 fL Normal 7.5-9.5 [facility] Comment on above: Performed By: #### L 200.3001, L200.3190 #### [facility] [address] [place] [address] 03901 Platelets (Bld) [#/Vol] 252 X10(3) Normal 150-450 [facility] Comment on above: Performed By: #### L 200.3001, L200.3190 #### [facility] [address] [place] [address] 96718 RBC (Bld) [#/Vol] 4.23 x10(6) Normal 3.30-5.00 [facility] Comment on above: Performed By: #### L 200.3001, L200.3190 #### [facility] [address] [place] [address] 44964 WBC (Bld) [#/Vol] 6.7 x10(3) Normal 4.5-10.0 [facility] Comment on above: Performed By: #### L 200.3001, L200.3190 #### [facility] [address] [place] [address] 35332 CHEST (TWO VIEWS) - CXRon CHEST (TWO VIEWS) - CXR [address] [address] Name: BELLA MORILLO Phys: TODD REYES M.D. : [birth year] Age: 64 Sex: F Acct: [id number] Loc: [facility] Exam Date: 10/23/19 Status: PRE IN Radiology No.: [id number] Unit Number: [id number] Exam # Type/Exam [id number] RAD / CHEST (TWO VIEWS) - CXR XR CHEST 2 VIEWS INDICATION: Preop COMPARISON: No FINDINGS: The lungs and pleural spaces are clear. The cardiac silhouette is within normal size limits. The pulmonary vasculature is normal in appearance IMPRESSION: Clear lungs. Electronically signed by: Mecca Gonzalez MD 10/23/2019 1:40 PM CDT < > Reported By: MECCA GONZALEZ M.D. Signed In PowerScribe By: MECCA GONZALEZ M.D. << Signature on File>> Reported By: MECCA GONZALEZ M.D. Signed By: MECCA GONZALEZ M.D. Tests performed at: [address] [address] [facility] CMPon 10-23-2019 A:G RATIO 1.48 Normal 1.1-2.5 [facility] Comment on above: Performed By: #### L 200.3001, L200.3190 #### - [facility] [address] [place] [address] 39489 Albumin [Mass/Vol] 4.0 g/dL Normal 3.5-5.2 [facility] Comment on above: Performed By: #### L 200.3001, L200.3190 #### [facility] [address] [place] [address] 24956 ALK. PHOS 60 U/L Normal 35-105 [facility] Comment on above: Performed By: #### L 200.3001, L200.3190 #### [facility] [address] [place] [address] 72918 ALT [Catalytic activity/Vol] 16 U/L Normal 5-33 [facility] Comment on above: Performed By: #### L 200.3001, L200.3190 #### [facility] [address] [place] [address] 14264 Anion gap [Moles/Vol] 15.1 mmol/L Normal 15-22 [facility] Comment on above: Performed By: #### L 200.3001, L200.3190 #### [facility] [address] [place] [address] 56150 AST [Catalytic activity/Vol] 23 U/L Normal 5-32 [facility] Comment on above: Performed By: #### L 200.3001, L200.3190 #### [facility] [address] [place] [address] 38014 Bilirubin Ql (U) 0.3 mg/dL Normal 0.2-1.2 [facility] Comment on above: Performed By: #### L 200.3001, L200.3190 #### [facility] [address] [place] [address] 06997 Calcium [Mass/Vol] 9.4 mg/dL Normal 8.8-10.2 [facility] Comment on above: Performed By: #### L 200.3001, L200.3190 #### [facility] [address] [place] [address] 54155 Chloride [Moles/Vol] 104 mmol/L Normal 98-107 [facility] Comment on above: Performed By: #### L 200.3001, L200.3190 #### [facility] [address] [place] [address] 46081 CO2 [Moles/Vol] 28 mmol/L Normal 22-29 [facility] Comment on above: Performed By: #### L 200.3001, L200.3190 #### [facility] [address] [place] [address] 06250 Creatinine [Mass/Vol] 1.07 mg/dL High 0.50-0.90 [facility] Comment on above: Performed By: #### L 200.3001, L200.3190 #### [facility] [address] [place] [address] 13884 eGFR if AFR CLIFF > 60 ml/min/1.73m2 Normal [facility] Comment on above: Result Comment: eGFR >= 60 Indicates normal kidney function. * eGFR IS AN ESTIMATE * (AFR CLIFF = ) (non-AFR AM = NON-) MDRD calculation used in the eGFR should not be used to dose medications. For further limitations of the eGFR please refer to the Physician Website or the National Kidney Disease Education Program website (www.nkdep.nih.gov). Performed By: #### L 200.3001, L200.3190 #### [facility] [address] [place] [address] 77739 eGFR nonAFR Cliff 52 [facility] Comment on above: Performed By: #### L 200.3001, L200.3190 #### [facility] [address] [place] [address] 26550 Globulin (S) [Mass/Vol] 2.7 g/dL Normal 1.5-4.5 [facility] Comment on above: Performed By: #### L 200.3001, L200.3190 #### [facility] [address] [place] [address] 75453 Glucose [Mass/Vol] 107 mg/dL Normal 82-115 [facility] Comment on above: Performed By: #### L 200.3001, L200.3190 #### [facility] [address] [place] [address] 11706 Potassium [Moles/Vol] 4.1 mmol/L Normal 3.5-5.0 [facility] Comment on above: Performed By: #### L 200.3001, L200.3190 #### [facility] [address] [place] [address] 77767 Protein [Mass/Vol] 6.7 g/dL Normal 6.4-8.3 [facility] Comment on above: Performed By: #### L 200.3001, L200.3190 #### [facility] [address] [place] [address] 14687 Sodium [Moles/Vol] 143 mmol/L Normal 135-145 [facility] Comment on above: Performed By: #### L 200.3001, L200.3190 #### [facility] [address] [place] [address] 92318 Urea nitrogen [Mass/Vol] 20 mg/dL Normal 8-23 [facility] Comment on above: Performed By: #### L 200.3001, L200.3190 #### [facility] [address] [place] [address] 93309 UA W/C&Son 10-23-2019 Bilirubin Ql (U) Negative Normal NEGATIVE [facility] Comment on above: Performed By: #### L 200.3001, L200.3190 #### [facility] [address] [place] [address] 30361 Color (U) YELLOW Normal YELLOW [facility] Comment on above: Performed By: #### L 200.3001, L200.3190 #### ML [facility] [address] [place] [address] 92312 Glucose Ql (U) Negative Normal NEGATIVE [facility] Comment on above: Performed By: #### L 200.3001, L200.3190 #### [facility] [address] [place] [address] 35639 Hemoglobin Ql (U) Negative Normal NEGATIVE [facility] Comment on above: Performed By: #### L 200.3001, L200.3190 #### [facility] [address] [place] [address] 54476 Leukocyte esterase Test strip Ql (U) MODERATE Normal NEGATIVE [facility] Comment on above: Performed By: #### L 200.3001, L200.3190 #### [facility] [address] [place] [address] 73478 Nitrite Ql (U) Negative Normal NEGATIVE [facility] Comment on above: Performed By: #### L 200.3001, L200.3190 #### [facility] [address] [place] [address] 09204 pH (U) 6.0 [pH] Normal 5.0-8.0 [facility] Comment on above: Performed By: #### L 200.3001, L200.3190 #### [facility] [address] [place] [address] 59139 Protein Ql (U) Negative Normal NEGATIVE [facility] Comment on above: Performed By: #### L 200.3001, L200.3190 #### [facility] [address] [place] [address] 48128 URINE APPEARANC SL CLOUDY Normal CLEAR [facility] Comment on above: Performed By: #### L 200.3001, L200.3190 #### [facility] [address] [place] [address] 62060 URINE KETONE Negative Normal NEGATIVE [facility] Comment on above: Performed By: #### L 200.300, L200.3190 #### [facility] [address] [place] [address] 56481 URINE SPECIFIC 1.025 Normal 1.001-1.03 5 [facility] Comment on above: Performed By: #### L 200.3001, L200.3190 #### [facility] [address] [place] [address] 86685 URINE UROBILINO 1.0 EU/DL Normal 0.2-1.0 [facility] Comment on above: Performed By: #### L 200.3001, L200.3190 #### [facility] [address] [place] [address] 83345 UCon 10-23-2019 UC ORGANISM 1: NO GROWTH Normal [facility] Comment on above: Performed By: #### L 200.3001, L200.3190 #### [facility] [address] [place] [address] 92439 URINE MICROSCOPon 10-23-2019 Bacteria LM.HPF (Urine sed) [#/Area] 1+ Normal NEGATIVE [facility] Comment on above: Performed By: #### L 200.3001, L200.3190 #### [facility] [address] [place] [address] 03044 Mucus Ql (Urine sed) TR Normal NEGATIVE [facility] Comment on above: Performed By: #### L 200.3001, L200.3190 #### [facility] [address] [place] [address] 42327 RBC (U) [#/Vol] 1-3 Normal 0-2 [facility] Comment on above: Performed By: #### L 200.3001, L200.3190 #### [facility] [address] [place] [address] 90353 SQUAMOUS FEW Normal NEGATIVE [facility] Comment on above: Performed By: #### L 200.3001, L200.3190 #### [facility] [address] [place] [address] 78459 WBC (U) [#/Vol] 10-20 Normal 0-5 [facility] Comment on above: Performed By: #### L 200.3001, L200.3190 #### [facility] [address] [place] [address] 77490 C-REACTIVE PROTon 08-22-2019 C-REACTIVE PROT 0.25 mg/dL Normal 0.00-0.50 [facility] Comment on above: Result Comment: STAT ED NORMAL RANGE IS FOR ADULTS ONLY. NO NORMAL RANGE HAS BEEN ESTABLISHED FOR CHILDREN. Performed By: #### L 200.3001, L200.3190 #### [facility] [address] [place] [address] 41221 CBCon 08-22-2019 Basophils (Bld) [#/Vol] 0.20 x10(3) High 0.00-0.10 [facility] Comment on above: Performed By: #### L 200.0010, L200.1500 #### [facility] [address] [place] [address] 34296 Basophils/100 WBC (Bld) 2.2 % High 0.0-1.0 [facility] Comment on above: Performed By: #### L 200.0010, L200.1500 #### [facility] [address] [place] [address] 65443 Eosinophils (Bld) [#/Vol] 0.50 x10(3) Normal 0.00-0.54 [facility] Comment on above: Performed By: #### L 200.0010, L200.1500 #### [facility] [address] [place] [address] 75012 Eosinophils/100 WBC (Bld) 7.2 % High 0.5-4.9 [facility] Comment on above: Performed By: #### L 200.0010, L200.1500 #### [facility] [address] [place] [address] 18369 Erythrocyte distribution width (RBC) [Ratio] 15.5 % Normal 12.5-15.7 [facility] Comment on above: Performed By: #### L 200.0010, L200.1500 #### [facility] [address] [place] [address] 35618 Hematocrit (Bld) [Volume fraction] 37.2 % Normal 36.0-48.0 [facility] Comment on above: Performed By: #### L 200.0010, L200.1500 #### [facility] [address] [place] [address] 46213 Hemoglobin (Bld) [Mass/Vol] 12.2 g/dL Normal 12.0-16.0 [facility] Comment on above: Performed By: #### L 200.0010, L200.1500 #### [facility] [address] [place] [address] 49532 Lymphocytes (Bld) [#/Vol] 1.40 x10(3) Normal 1.00-3.50 [facility] Comment on above: Performed By: #### L 200.0010, L200.1500 #### [facility] [address] [place] [address] 19473 Lymphocytes/100 WBC (Bld) 19.8 % Normal 16.0-48.0 [facility] Comment on above: Performed By: #### L 200.0010, L200.1500 #### [facility] [address] [place] [address] 68412 MCH (RBC) [Entitic mass] 29.1 pg Normal 28.5-32.9 [facility] Comment on above: Performed By: #### L 200.0010, L200.1500 #### [facility] [address] [place] [address] 33651 MCHC (RBC) [Mass/Vol] 32.8 g/dL Low 33.0-36.0 [facility] Comment on above: Performed By: #### L 200.0010, L200.1500 #### [facility] [address] [place] [address] 80858 MCV (RBC) [Entitic vol] 89.0 fL Normal 80.0-99.0 [facility] Comment on above: Performed By: #### L 200.0010, L200.1500 #### [facility] [address] [place] [address] 29772 Monocytes (Bld) [#/Vol] 0.60 x10(3) Normal 0.30-0.80 [facility] Comment on above: Performed By: #### L 200.0010, L200.1500 #### ML [facility] [address] [place] [address] 77216 Monocytes/100 WBC (Bld) 9.3 % Normal 4.3-11.2 [facility] Comment on above: Performed By: #### L 200.0010, L200.1500 #### ML [facility] [address] [place] [address] 66672 Neutrophils (Bld) [#/Vol] 4.20 x10(3) Normal 1.40-6.50 [facility] Comment on above: Performed By: #### L 200.0010, L200.1500 #### ML [facility] [address] [place] [address] 35920 Neutrophils/100 WBC (Bld) 61.5 % Normal 45.0-73.0 [facility] Comment on above: Performed By: #### L 200.0010, L200.1500 #### [facility] [address] [place] [address] 36648 Platelet mean volume (Bld) [Entitic vol] 8.9 fL Normal 7.5-9.5 [facility] Comment on above: Performed By: #### L 200.0010, L200.1500 #### ML [facility] [address] [place] [address] 46555 Platelets (Bld) [#/Vol] 244 X10(3) Normal 150-450 [facility] Comment on above: Performed By: #### L 200.0010, L200.1500 #### [facility] [address] [place] [address] 22081 RBC (Bld) [#/Vol] 4.19 x10(6) Normal 3.30-5.00 [facility] Comment on above: Performed By: #### L 200.0010, L200.1500 #### [facility] [address] [place] [address] 29452 WBC (Bld) [#/Vol] 6.8 x10(3) Normal 4.5-10.0 [facility] Comment on above: Performed By: #### L 200.0010, L200.1500 #### [facility] [address] [place] [address] 69736 ESRon 08-22-2019 ESR (Bld) [Velocity] 15 mm/h Normal 0-20 [facility] Comment on above: Performed By: #### L 304.0162, L304.0140 #### [facility] [address] [place] [address] 12299 NM BONE SCAN 3 PHASE [id number] 08-22-2019 NM BONE SCAN [id number] [address] Name: BELLA MORILLO Luciano Phys: CEDRIC QUILES III, D.O. : [birth year] Age: 64 Sex: F Acct: [id number] Loc: [facility] Exam Date: 08/22/19 Status: REG CLI Radiology No.: [id number] Unit Number: [id number] Exam # Type/Exam [id number] NM / NM BONE SCAN 3 PHASE 12050 NM BONE SCAN WHOLE BODY THREE PHASE CLINICAL STATEMENT: Left knee pain, left knee arthroplasty. TECHNIQUE: Following intravenous administration of 31.9 mCi of technetium 99 MDP blood flow, five minute blood pool and static imaging was obtained of the knees in multiple projections. COMPARISON: None FINDINGS: There is diffuse mild abnormal uptake around the femoral component of the prosthesis. There is marked abnormal increased uptake involving the tibial metaphysis and femoral condyles of the left knee. There is abnormal uptake involving the posterior patella of the left knee as well. There is severe abnormal uptake in the medial compartment of the right knee, there is mild patellofemoral and lateral compartment degenerative uptake on the right. IMPRESSION: Abnormal uptake femoral component of the left knee prosthesis diffusely, there is abnormal uptake in the left femoral condyles and left tibial plateaus, findings suggest loosening, infection is less likely. If there are recent radiographs available for comparison that would be helpful. Severe medial compartment osteoarthritic degenerative change. Electronically signed by: Sridhar Díaz MD 08/22/2019 3:37 PM CDT < > Reported By: SRIDHAR DÍAZ M.D. Signed In PowerScribe By: SRIDHAR DÍAZ M.D. << Signature on File>> Reported By: SRIDHAR DÍAZ M.D. Signed By: SRIDHAR DÍAZ M.D. Tests performed at: [address] [address] [facility] CALCIUMon 08-07-2019 Calcium [Mass/Vol] 9.6 mg/dL Normal 8.8-10.2 [facility] Comment on above: Performed By: #### L 200.3001, L200.3190 #### [facility] [address] [place] [id number] FERRITINon 08-07-2019 Ferritin [Mass/Vol] 16.5 ng/mL Normal 13-150 [facility] Comment on above: Performed By: #### L 200.3001, L200.3190 #### [facility] [address] [place] [id number] FREE T3on 08-07-2019 Free T3 [Mass/Vol] 1.3 pg/mL Low 2.0-4.4 [facility] Comment on above: Performed By: #### L 200.3001, L200.3190 #### [facility] [address] [place] [id number] Free T4on 08-07-2019 Free T4 [Mass/Vol] 0.21 ng/dL Low 0.93-1.7 [facility] Comment on above: Performed By: #### L 200.3001, L200.3190 #### [facility] [address] [place] [address] 00954 IRON & TIBCon 08-07-2019 % FE. SAT. 14 % Normal 10-32 [facility] Comment on above: Performed By: #### L 100.0400 #### [facility] [address] [place] [address]17 Iron [Mass/Vol] 62 ug/dL Normal 37-145 [facility] Comment on above: Performed By: #### L 100.0400 #### [facility] [address] [place] [address]38 TIBC 440 mg/dL Normal 269-535 [facility] Comment on above: Performed By: #### L 100.0400 #### [facility] [address] [place] [address] 19860 Transferrin [Mass/Vol] 314 mg/dL Normal 192-382 [facility] Comment on above: Performed By: #### L 100.0400 #### [facility] [address] [place] [address] TSHon 08-07-2019 TSH Qn 20.79 uIU/mL High 0.27-4.20 [facility] Comment on above: Performed By: #### L 200.3001, L200.3190 #### [facility] [address] [place] [address] 73127 VITAMIN Don 08-07-2019 VITAMIN D 31.4 ng/mL Normal 30-100 [facility] Comment on above: Performed By: #### L 200.3001, L200.3190 #### [facility] [address] [place] [id number] BD DXA - AXIAL SKELETONon BD DXA - AXIAL SKELETON * * *Final Report* * * DATE OF EXAM: Jun 20 2019 11:14AM AWX 0804 - BD DXA - AXIAL SKELETON - LEFT / PROCEDURE REASON: z78.0 menopause z13.820 screening osteoporosis * * * * Physician Interpretation * * * * EXAM TITLE: BONE MINERAL DENSITOMETRY DATE:06/20/2019 COMPARISON:04/01/2017 CLINICAL INDICATION/HISTORY: Postmenopausal female with history of adult fracture and osteoporosis TECHNIQUE: DXA [employer] v.13.4 examination was performed on the lumbar spine and hip. FINDINGS: 1. L1-L4 BMD is 0.858 g/cm2 which is 73% of peak bone mass compared to young normals which is -2.7 standard deviations relative to the mean of young normals (T-score). According to the World Health Organization criteria, this would be classified as osteoporosis.. 2. Left hip BMD is 0.650 g/cm2 which is 65% of peak bone mass compared to young normals which is -2.8 standard deviations relative to the mean of young normals (T-score). According to the World Health Organization criteria, this would be classified as osteoporosis. 3. Left femoral neck BMD is 0.735 g/cm2 which is 71% of peak bone mass compared to young normals which is -2.2 standard deviations relative to the mean of young normals (T-score). According to the World Health Organization criteria, this would be classified as osteopenia. IMPRESSION: 1. Osteoporosis with a T score value of -2.8. 2. There has been a nonstatistically significant interval decrease in BMD at the lumbar spine and left hip since the prior exam. * FRAX 10 YEAR PROBABILITY OF FRACTURE: Major Osteoporotic 18.3 % Hip 3.0 % Based on Femur Neck BMD * FRAX is a trademark of the [employer], a WHO Collaborating [employer]. This applies to men over 50 and to post menopausal women over 50 years of age. The 10 year probability of fracture may be lower than reported above if the patient has received treatment for osteopenia/osteoporosis. It is also less accurate the more severe the osteoporosis. Major Osteoporotic Fracture: clinical spine, forearm, hip or shoulder. RELATIVE FRACTURE RISK TABLE NOTE: This table applies to post-menopausal females. T-score Fracture risk 0 average risk for normal 40 year old -1 2 times the normal -2 4 times the normal -3 8 times the normal etc. GENERAL RECOMMENDATIONS FOR PREVENTION OF BONE LOSS: 1. 1200 mg - 1500 mg calcium per day if no history of renal calculi for adults 50 years and over. 2. 800 - 1000 International Units of vitamin D3 per day if no history of renal calculi for adults 50 years and over. 3. Weight bearing exercise 4. Advise again smoking. If currently smoking, recommend cessation. 5. Avoid excessive use of caffeine, soft drinks, and alcoholic beverages. The National Osteoporosis Foundation recommends that treatment be considered for patients with T-scores of -2.5 or lower (-1 or lower if patient at high risk for accelerated bone loss). Business Account Specialist: ANGIE Transcribe Date/Time: Jun 21 2019 3:28P Dictated by : AMILCAR PAREDES MD This examination was interpreted and the report reviewed and electronically signed by: AMILCAR PAREDES MD on Jun 21 2019 3:30PM EST Normal [facility] No Panel Information [facility] Vital Signs Date Time Vital Sign Value Performing Clinician Facility 12-19-2024 14:54-0400 Body height 168.9 cm Jaciel Hurd MD Work Phone: [facility] 12-19-2024 14:54-0400 Body mass index (BMI) [Ratio] 24.01 kg/m2 Jaciel Hurd MD Work Phone: [facility] 12-19-2024 14:54-0400 Body weight 68.5 kg Jaciel Hurd MD Work Phone: [facility] 10-06-2024 10:57-0400 Body mass index (BMI) [Ratio] 23.49 kg/m2 Chi Zamora MD Work Phone: [facility] 10-06-2024 10:57-0400 Body weight 68.04 kg Chi Zamora MD Work Phone: [facility] 10-06-2024 10:57-0400 Diastolic blood pressure 73 mm[Hg] Chi fay MD Work Phone: [facility] 10-06-2024 10:57-0400 Heart rate 64 /min Chi Zamora MD Work Phone: [facility] 10-06-2024 10:57-0400 SaO2% (BldA) [Mass fraction] 98 % Chi Zamora MD Work Phone: [facility] 10-06-2024 10:57-0400 Systolic blood pressure 121 mm[Hg] Chi Zamora MD Work Phone: [facility] 09-22-2024 17:40-0400 SaO2% (BldA) [Mass fraction] 95 % CHI ZAMORA [facility] Comment on above: Order Comment: Specimen Type: ARTERIAL B LOOD SPECIMENOrdering Facility: [facility] Address: [address] [place] [id number] Performed By: #### A LLBG ####[facility] LABORATORYCLIA [id number] [place] [address] [place] 08-03-2024 12:43-0400 Diastolic blood pressure 65 mm[Hg] Satish Flynn MD Work Phone: [facility] 08-03-2024 12:43-0400 Heart rate 68 /min Satish Flynn MD Work Phone: [facility] 08-03-2024 12:43-0400 Respiratory rate 14 /min Satish Flynn MD Work Phone: [facility] 08-03-2024 12:43-0400 SaO2% (BldA) [Mass fraction] 100 % Satish Flynn MD Work Phone: [facility] 08-03-2024 12:43-0400 Systolic blood pressure 138 mm[Hg] Satish Deleon Work Phone: [facility] 08-03-2024 11:22-0400 Body mass index (BMI) [Ratio] 24.27 kg/m2 Satish Flynn MD Work Phone: [facility] 08-03-2024 11:22-0400 Body temperature 98.1 [degF] Satish Flynn MD Work Phone: [facility] 08-03-2024 11:22-0400 Body weight 70.3 kg Satish Flynn MD Work Phone: [facility] 07-20-2024 13:52-0400 Body height 170.2 cm Chi Zamora MD Work Phone: [facility] 07-20-2024 13:52-0400 Body mass index (BMI) [Ratio] 24.28 kg/m2 Chi Zamora MD Work Phone: [facility] 07-20-2024 13:52-0400 Body weight 70.31 kg Chi Zamora MD Work Phone: [facility] 07-20-2024 13:52-0400 Diastolic blood pressure 76 mm[Hg] Chi fay MD Work Phone: [facility] 07-20-2024 13:52-0400 Heart rate 58 /min Chi Zamora MD Work Phone: [facility] 07-20-2024 13:52-0400 Respiratory rate 16 /min Chi Zamora MD Work Phone: [facility] 07-20-2024 13:52-0400 SaO2% (BldA) [Mass fraction] 98 % Chi Zamora MD Work Phone: [facility] 07-20-2024 13:52-0400 Systolic blood pressure 132 mm[Hg] Chi Zamora MD Work Phone: [facility] 05-08-2024 09:13-0500 Body mass index (BMI) [Ratio] 25.2 kg/m2 Lindsey Zuniga Work Phone: [facility] 05-08-2024 09:13-0500 Body temperature 97.81 [degF] Lindsey Zuniga Work Phone: [facility] 05-08-2024 09:13-0500 Body weight 71.89 kg Lindsey Zuniga Work Phone: [facility] 05-08-2024 09:13-0500 Diastolic blood pressure 67 mm[Hg] Lindsey Zuniga Work Phone: [facility] 05-08-2024 09:13-0500 Heart rate 63 /min Lindsey Zuniga Work Phone: [facility] 05-08-2024 09:13-0500 SaO2% (BldA) [Mass fraction] 98 % Lindsey Zuniga Work Phone: [facility] 05-08-2024 09:13-0500 Systolic blood pressure 112 mm[Hg] Lindsey Zuniga Work Phone: [facility] 03-06-2024 12:19-0500 Diastolic Blood Pressure Non-Invasive 65 mm[Hg] DR [facility] 03-06-2024 12:19-0500 Heart rate 65 /min DR ENRIQUE BASS [facility] 03-06-2024 12:19-0500 Respiratory rate 23 /min DR ENRIQUE BASS [facility] 03-06-2024 12:19-0500 Systolic Blood Pressure Non-Invasive 133 mm[Hg] DR ENRIQUE BASS [facility] 03-06-2024 12:14-0500 Diastolic Blood Pressure Non-Invasive 69 mm[Hg] DR ENRIQUE BASS [facility] 03-06-2024 12:14-0500 Heart rate 67 /min DR ENRIQUE BASS [facility] 03-06-2024 12:14-0500 Respiratory rate 19 /min DR ENRIQUE BASS [facility] 03-06-2024 12:14-0500 Systolic Blood Pressure Non-Invasive 124 mm[Hg] DR ENRIQUE BASS [facility] 03-06-2024 12:08-0500 Diastolic Blood Pressure Non-Invasive 56 mm[Hg] DR ENRIQUE BASS [facility] 03-06-2024 12:08-0500 Heart rate 67 /min DR ENRIQUE BASS [facility] 03-06-2024 12:08-0500 Respiratory rate 20 /min DR ENRIQUE BASS MD [facility] 03-06-2024 12:08-0500 Systolic Blood Pressure Non-Invasive 116 mm[Hg] DR ENRIQUE BASS [facility] 03-06-2024 12:01-0500 Body temperature 98.06 [degF] DR ENRIQUE BASS MD [facility] 03-06-2024 11:55-0500 Respiratory Rate - Anes 13 br/min DR ENRIQUE Estevez [facility] 03-06-2024 11:50-0500 Respiratory Rate - Anes 18 br/min DR ENRIQUE Estevez [facility] 03-06-2024 11:13-0500 Body height 168.[address] ENRIQUE BASS [facility] 03-06-2024 11:13-0500 Body temperature 97.88 [degF] DR ENRIQUE BASS [facility] 03-06-2024 11:13-0500 Body weight [address] ENRIQUE BASS [facility] 03-06-2024 11:13-0500 Heart rate 68 /min DR ENRIQUE BASS [facility] 03-06-2024 11:07-0500 Body height 168.[address] ENRIQUE BASS [facility] 03-02-2024 07:57-0500 Body temperature 98.2 [degF] Treatment Wstr Work Phone: [facility] 03-02-2024 07:57-0500 Diastolic blood pressure 75 mm[Hg] Treatment Wstr Work Phone: [facility] 03-02-2024 07:57-0500 Heart rate 69 /min Treatment Wstr Work Phone: [facility] 03-02-2024 07:57-0500 Respiratory rate 18 /min Treatment Wstr Work Phone: [facility] 03-02-2024 07:57-0500 SaO2% (BldA) [Mass fraction] 98 % Treatment Wstr Work Phone: [facility] 03-02-2024 07:57-0500 Systolic blood pressure 128 mm[Hg] Treatment Wstr Work Phone: [facility] 02-28-2024 09:20-0500 Body mass index (BMI) [Ratio] 24.96 kg/m2 Treatment Wstr Work Phone: [facility] 02-28-2024 09:20-0500 Body temperature 98.2 [degF] Treatment Wstr Work Phone: [facility] 02-28-2024 09:20-0500 Body weight 71.2 kg Treatment Wstr Work Phone: [facility] 02-28-2024 09:20-0500 Diastolic blood pressure 73 mm[Hg] Treatment Wstr Work Phone: [facility] 02-28-2024 09:20-0500 Heart rate 63 /min Treatment Wstr Work Phone: [facility] 02-28-2024 09:20-0500 SaO2% (BldA) [Mass fraction] 92 % Treatment Wstr Work Phone: [facility] 02-28-2024 09:20-0500 Systolic blood pressure 120 mm[Hg] Treatment Wstr Work Phone: [facility] 02-24-2024 08:50-0400 Body temperature 97.9 [degF] Treatment Wstr Work Phone: [facility] 02-24-2024 08:50-0400 Diastolic blood pressure 76 mm[Hg] Treatment Wstr Work Phone: [facility] 02-24-2024 08:50-0400 Heart rate 62 /min Treatment Wstr Work Phone: [facility] 02-24-2024 08:50-0400 Respiratory rate 18 /min Treatment Wstr Work Phone: [facility] 02-24-2024 08:50-0400 SaO2% (BldA) [Mass fraction] 99 % Treatment Wstr Work Phone: [facility] 02-24-2024 08:50-0400 Systolic blood pressure 129 mm[Hg] Treatment Wstr Work Phone: [facility] 02-21-2024 08:00-0400 Body temperature 97.81 [degF] Treatment Wstr Work Phone: [facility] 02-21-2024 08:00-0400 Diastolic blood pressure 74 mm[Hg] Treatment Wstr Work Phone: [facility] 02-21-2024 08:00-0400 Heart rate 58 /min Treatment Wstr Work Phone: [facility] 02-21-2024 08:00-0400 Respiratory rate 18 /min Treatment Wstr Work Phone: [facility] 02-21-2024 08:00-0400 SaO2% (BldA) [Mass fraction] 96 % Treatment Wstr Work Phone: [facility] 02-21-2024 08:00-0400 Systolic blood pressure 124 mm[Hg] Treatment Wstr Work Phone: [facility] 02-17-2024 10:18-0400 Body temperature 97.5 [degF] Treatment Wstr Work Phone: [facility] 02-17-2024 10:18-0400 Diastolic blood pressure 69 mm[Hg] Treatment Wstr Work Phone: [facility] 02-17-2024 10:18-0400 Heart rate 69 /min Treatment Wstr Work Phone: [facility] 02-17-2024 10:18-0400 Respiratory rate 16 /min Treatment Wstr Work Phone: [facility] 02-17-2024 10:18-0400 SaO2% (BldA) [Mass fraction] 98 % Treatment Wstr Work Phone: [facility] 02-17-2024 10:18-0400 Systolic blood pressure 116 mm[Hg] Treatment Wstr Work Phone: [facility] 02-01-2024 10:33-0400 Body height 168.9 cm Lindsey Zuniga Work Phone: [facility] 02-01-2024 10:33-0400 Body mass index (BMI) [Ratio] 24.96 kg/m2 Lindseywood Zuniga Work Phone: [facility] 02-01-2024 10:33-0400 Body temperature 97.7 [degF] Lindsey Zuniga Work Phone: [facility] 02-01-2024 10:33-0400 Body weight 71.22 kg Lindsey Zuniga Work Phone: [facility] 02-01-2024 10:33-0400 Diastolic blood pressure 75 mm[Hg] Lindseywood Zuniga Work Phone: [facility] 02-01-2024 10:33-0400 Heart rate 64 /min Lindseywood Zuniga Work Phone: [facility] 02-01-2024 10:33-0400 SaO2% (BldA) [Mass fraction] 98 % Lindsey Zuniga Work Phone: [facility] 02-01-2024 10:33-0400 Systolic blood pressure 125 mm[Hg] Lindsey Zuniga Work Phone: [facility] 12-19-2023 09:08-0400 Body mass index (BMI) [Ratio] 24.57 kg/m2 Beverleyoscar Herronaugh PA-C Work Phone: [facility] 12-19-2023 09:08-0400 Body temperature 97.3 [degF] Beverley Slabaugh PA-C Work Phone: [facility] 12-19-2023 09:08-0400 Body weight 71.15 kg Beverley Slabaugh PA-C Work Phone: [facility] 12-19-2023 09:08-0400 Diastolic blood pressure 67 mm[Hg] Beverley Slabaugh PA-C Work Phone: [facility] 12-19-2023 09:08-0400 Heart rate 67 /min Beverley Germaineaugh PA-C Work Phone: [facility] 12-19-2023 09:08-0400 Respiratory rate 16 /min Beverley Germaineaugh PA-C Work Phone: [facility] 12-19-2023 09:08-0400 SaO2% (BldA) [Mass fraction] 99 % Beverleyoscar Herronaugh PA-C Work Phone: [facility] 12-19-2023 09:08-0400 Systolic blood pressure 136 mm[Hg] Beverleyoscar Herronaugh PA-C Work Phone: [facility] 09-13-2023 12:51-0400 Body mass index (BMI) [Ratio] 26.66 kg/m2 Chi Zamora MD Work Phone: [facility] 09-13-2023 12:51-0400 Body weight 77.2 kg Chi Zamora MD Work Phone: [facility] 09-13-2023 12:51-0400 Diastolic blood pressure 73 mm[Hg] Chi fay MD Work Phone: [facility] 09-13-2023 12:51-0400 SaO2% (BldA) [Mass fraction] 97 % Chi Zamora MD Work Phone: [facility] 09-13-2023 12:51-0400 Systolic blood pressure 118 mm[Hg] Chi Zamora MD Work Phone: [facility] 05-28-2023 13:22-0500 Body height 170.2 cm Lilia Martinez SENIOR RADIATION PROTECTION TECHNICIAN.WAITER/WAITRESS TOURIST CLASS Work Phone: [facility] 05-28-2023 13:22-0500 Body weight 73.48 kg Lilia Martinez SENIOR RADIATION PROTECTION TECHNICIAN.WAITER/WAITRESS TOURIST CLASS Work Phone: [facility] 05-28-2023 13:22-0500 Diastolic blood pressure 69 mm[Hg] Lilia Martinez SENIOR RADIATION PROTECTION TECHNICIAN.WAITER/WAITRESS TOURIST CLASS Work Phone: [facility] 05-28-2023 13:22-0500 Heart rate 59 /min Lilia Martinez SENIOR RADIATION PROTECTION TECHNICIAN.WAITER/WAITRESS TOURIST CLASS Work Phone: [facility] 05-28-2023 13:22-0500 SaO2% (BldA) [Mass fraction] 98 % Lilia Martinez SENIOR RADIATION PROTECTION TECHNICIAN.WAITER/WAITRESS TOURIST CLASS Work Phone: [facility] 05-28-2023 13:22-0500 Systolic blood pressure 117 mm[Hg] Lilia Martinez SENIOR RADIATION PROTECTION TECHNICIAN.WAITER/WAITRESS TOURIST CLASS Work Phone: [facility] 10-12-2022 09:31-0400 Body height 170.2 cm Gaye SKYC Work Phone: [facility] 10-12-2022 09:31-0400 Body weight 73.48 kg Gaye DENISE-C Work Phone: [facility] 10-12-2022 09:31-0400 Diastolic blood pressure 70 mm[Hg] Gaye DENISE-C Work Phone: [facility] 10-12-2022 09:31-0400 Systolic blood pressure 128 mm[Hg] Gaye Rowell PA-C Work Phone: [facility] 05-28-2022 09:46-0500 Body height 170.2 cm Chi Zamora MD Work Phone: [facility] 05-28-2022 09:46-0500 Body weight 73.48 kg Chi Zamora MD Work Phone: [facility] 05-28-2022 09:46-0500 Diastolic blood pressure 72 mm[Hg] Chi fay MD Work Phone: [facility] 05-28-2022 09:46-0500 Heart rate 70 /min Chi Zamora MD Work Phone: [facility] 05-28-2022 09:46-0500 SaO2% (BldA) [Mass fraction] 98 % Chi Zamora MD Work Phone: [facility] 05-28-2022 09:46-0500 Systolic blood pressure 140 mm[Hg] Chi Zamora MD Work Phone: [facility] 11-20-2021 12:44-0400 Diastolic blood pressure 68 mm[Hg] NUPUR Deleon [facility] 11-20-2021 12:44-0400 Heart rate 57 /min NUPUR JUNG [facility] 11-20-2021 12:44-0400 Respiratory rate 16 /min NUPUR JUNG [facility] 11-20-2021 12:44-0400 Systolic blood pressure 107 mm[Hg] NUPUR JUNG [facility] 11-20-2021 12:22-0400 Diastolic blood pressure 65 mm[Hg] NUPUR Deleon [facility] 11-20-2021 12:22-0400 Heart rate 62 /min NUPUR JUNG [facility] 11-20-2021 12:22-0400 Respiratory rate 16 /min NUPUR JUNG [facility] 11-20-2021 12:22-0400 Systolic blood pressure 111 mm[Hg] NUPUR JUNG [facility] 11-20-2021 11:44-0400 Diastolic blood pressure 67 mm[Hg] NUPUR Deleon [facility] 11-20-2021 11:44-0400 Heart rate 54 /min NUPUR JUNG [facility] 11-20-2021 11:44-0400 Respiratory rate 16 /min NUPUR JUNG [facility] 11-20-2021 11:44-0400 Systolic blood pressure 98 mm[Hg] NUPUR JUNG [facility] 11-20-2021 11:22-0400 Heart rate 59 /min NUPUR JUNG [facility] 11-20-2021 11:00-0400 Heart rate 58 /min NUPUR JUNG [facility] 11-20-2021 10:45-0400 Heart rate 55 /min NUPUR JUNG [facility] 11-20-2021 10:20-0400 Body height 170.2 cm NUPUR JUNG [facility] 11-20-2021 10:20-0400 Body temperature 97.7 [degF] NUPUR JUNG [facility] 11-20-2021 10:20-0400 Body weight 68.2 kg NUPUR JUNG [facility] 11-19-2021 22:54-0400 Diastolic blood pressure 88 mm[Hg] JANEEN CARLISLE MD [facility] 11-19-2021 22:54-0400 Heart rate 108 /min JANEEN CARLISLE [facility] 11-19-2021 22:54-0400 Mean blood pressure 102 mm[Hg] JANEEN CARLISLE [facility] 11-19-2021 22:54-0400 Respiratory rate 20 /min JANEEN CARLISLE [facility] 11-19-2021 22:54-0400 Systolic blood pressure 129 mm[Hg] JANEEN CARLISLE [facility] 11-19-2021 21:07-0400 Body height 170.2 cm JANEEN CARLISLE [facility] 11-19-2021 21:07-0400 Body temperature 99.5 [degF] JANEEN CARLISLE [facility] 11-19-2021 21:07-0400 Body weight 68.2 kg JANEEN CARLISLE [facility] 11-19-2021 21:07-0400 Diastolic blood pressure 76 mm[Hg] JANEEN CARLISLE [facility] 11-19-2021 21:07-0400 Heart rate 74 /min JANEEN CARLISLE [facility] 11-19-2021 21:07-0400 Mean blood pressure 99 mm[Hg] JANEEN CARLISLE [facility] 11-19-2021 21:07-0400 Respiratory rate 20 /min JANEEN CARLISLE [facility] 11-19-2021 21:07-0400 Systolic blood pressure 145 mm[Hg] JANEEN CARLISLE [facility] 10-08-2021 10:26-0400 Body height 170.2 cm Gaye Cellabus PA-C Work Phone: [facility] 10-08-2021 10:26-0400 Body weight 73.48 kg Gaye Rowell PA-C Work Phone: [facility] 10-08-2021 10:26-0400 Diastolic blood pressure 82 mm[Hg] Gaye Rowell PA-C Work Phone: [facility] 10-08-2021 10:26-0400 Systolic blood pressure 142 mm[Hg] Gaye Rowell PA-C Work Phone: [facility] Encounters Encounter Date Encounter Type Care Provider Facility Start: 02-05-2025 End: 02-05-2025 ambulatory LINDSEY ZUNIGA Facility:[facility] Start: 01-30-2025 End: 01-30-2025 ambulatory YOLANDA CASH MD [facility] Start: 01-30-2025 End: 01-30-2025 Patient encounter procedure YOLANDA CASH MD [facility] Start: 01-23-2025 ambulatory CHI ZAMORA Facility:[facility] Start: 01-16-2025 End: 01-16-2025 ambulatory SRIDHAR MONTERO DO [facility] Start: 01-16-2025 End: 01-16-2025 Patient encounter procedure SRIDHAR MONTERO DO [facility] Start: 12-19-2024 End: 12-19-2024 Patient encounter procedure Jaciel Hurd MD Work Phone: Orthopaedics Comment on above: Failure of total kne e replacement, subsequent encounter (Primary Dx) Start: 12-19-2024 End: 12-19-2024 ambulatory JACIEL HURD Facility:[facility] Start: 12-15-2024 ambulatory UNKNOWN PROVIDER Facili ty:[facility] Start: 12-15-2024 End: 12-15-2024 Subsequent hospital visit by physician Gi/Gu [facility] Work Phone: Radiology Comment on above: Arthralgia of left l ower leg [M25.562] Start: 12-01-2024 End: 12-06-2024 Telephone encounter Jaciel Hurd MD Work Phone: Orthopaedics Start: 11-07-2024 End: 11-07-2024 ambulatory JACIEL HURD Facility:[facility] Start: 11-07-2024 End: 11-07-2024 Patient encounter procedure Jaciel Hurd MD Work Phone: Orthopaedics Comment on above: Arthralgia of left l ower leg (Primary Dx) Start: 11-07-2024 End: 11-07-2024 ambulatory DELFINA KYLAH ZAMAN Facility:[facility] Start: 11-07-2024 End: 11-08-2024 Subsequent hospital visit by physician [facility] Work Phone: Radiology Comment on above: Left knee pain, unsp ecified chronicity [M25.562] Arthralgia of left l ower leg (Primary Dx) Start: 11-06-2024 End: 11-06-2024 ambulatory LINDSEY ZUNIGA Facility:[facility] Start: 10-31-2024 End: 10-31-2024 ambulatory Jaciel Hurd MD Work Phone: Orthopaedics Comment on above: x-ray Left knee pain, unsp ecified chronicity (Primary Dx) Start: 10-31-2024 End: 10-31-2024 E-mail encounter from caregiver Jaciel Hurd MD Work Phone: Orthopaedics Start: 10-11-2024 End: 10-11-2024 Telephone encounter Chi Zamora MD Work Phone: [facility] [place] Comment on above: Orders Start: 10-06-2024 End: 10-06-2024 Patient encounter procedure Chi Zamora MD Work Phone: [facility] [place] Comment on above: Paroxysmal atrial fi brillation (HCC) (Primary Dx); PAC (premature atrial contraction); long term care phlebotomist current use of anticoagulant Start: 10-06-2024 End: 10-06-2024 ambulatory CHI ZAMORA Facility:[facility] Start: 10-01-2024 End: 10-01-2024 Emergency department patient visit MARGARITA MIDDLETON [facility] Start: 09-27-2024 End: 09-27-2024 Refill Chi Zamora MD Work Phone: [facility] [place] Comment on above: Refill Request Start: 09-23-2024 End: 09-23-2024 Telephone encounter Tarah Goldsmith MD Work Phone: [facility] PROVID[facility] ADULT Start: 09-22-2024 End: 09-23-2024 ambulatory CHI ZAMORA Facility:[facility] Start: 09-19-2024 End: 09-19-2024 Telephone encounter Chi Zamora MD Work Phone: [facility] [place] Comment on above: Preparations For Pro cedures Start: 08-08-2024 End: 10-08-2024 Follow-up encounter Lindsey Zuniga Work Phone: Hematology/Oncology Start: 08-07-2024 End: 08-07-2024 ambulatory LINDSEY ZUNIGA Facility:[facility] Start: 08-04-2024 End: 08-04-2024 Telephone encounter Chi Zamora MD Work Phone: [facility]iology Comment on above: Patient Update Start: 08-03-2024 End: 08-03-2024 ambulatory SATISH FLYNN Facility:[facility] Start: 08-03-2024 End: 08-03-2024 Subsequent hospital visit by physician Satish Flynn MD Work Phone: Ambulatory Surgery Comment on above: Personal history of colon cancer [Z85.038] Start: 07-26-2024 End: 07-26-2024 Admission to same day surgery center Satish Flynn MD Work Phone: Ambulatory Surgery Comment on above: golytely Start: 07-26-2024 End: 07-26-2024 E-mail encounter from caregiver Satish Flynn MD Work Phone: Ambulatory Surgery Start: 07-21-2024 End: 07-21-2024 Telephone encounter Elizabeth Roger MD Work Phone: Gastroenterology [place] Comment on above: Orders Start: 07-20-2024 End: 07-20-2024 Patient encounter procedure Chi Zamora MD Work Phone: [facility] [place] Comment on above: Paroxysmal atrial fi brillation (HCC) (Primary Dx); At risk for stroke; Anemia, unspecified type Start: 07-20-2024 End: 07-20-2024 ambulatory CHI ZAMORA Facility:[facility] Start: 07-07-2024 End: 07-10-2024 Telephone encounter Chi Zamora MD Work Phone: [facility] Cardiology Comment on above: Patient Update Start: 07-05-2024 End: 07-05-2024 Emergency department patient visit MARGARITA MIDDLETON DO Facility:[facility] Start: 06-16-2024 End: 06-20-2024 ambulatory SRIDHAR MONTERO DO Facility:[facility] Start: 06-16-2024 End: 06-20-[address] VERONIKA HERNANDEZ DO [facility] Start: 06-16-2024 End: 06-16-[address] VERONIKA HERNANDEZ DO [facility] Start: 06-16-2024 End: 06-16-[address] VERONIKA HERNANDEZ DO [facility] Start: 05-08-2024 End: 05-08-2024 ambulatory Lindsey Zuniga Work Phone: Hematology/Oncology Comment on above: Iron deficiency anem ia, unspecified iron deficiency anemia type (Primary Dx); Iron 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 dietary iron intake; Anemia, unspecified type Start: 05-08-2024 End: 05-08-2024 Patient encounter procedure Lindsey Zuniga Work Phone: Hematology/Oncology Start: 05-04-2024 End: 05-04-2024 ambulatory LINDSEY ZUNIGA Facility:[facility] Start: 05-03-2024 End: 05-03-2024 ambulatory SRIDHAR MONTERO DO [facility] Start: 05-03-2024 End: 05-03-2024 Patient encounter procedure SRIDHAR MONTERO DO [facility] Start: 03-31-2024 End: 03-31-2024 Refill Chi Zamora MD Work Phone: [facility] [place] Comment on above: Refill Request Start: 03-06-2024 End: 03-06-2024 ambulatory ENRIQUE BASS [facility] Start: 03-06-2024 End: 03-06-[address] ENRIQUE BASS MD [facility] Start: 03-02-2024 End: 03-02-2024 ambulatory Treatment Rm 14 [facility] Work Phone: Hematology/Oncology Comment on above: Iron deficiency anem ia secondary to inadequate dietary iron intake (Primary Dx) Start: 02-28-2024 End: 02-28-2024 ambulatory LINDSEY ZUNIGA Hematology/Oncology Comment on above: Iron deficiency anem ia secondary to inadequate dietary iron intake (Primary Dx) Start: 02-28-2024 End: 02-28-2024 Patient encounter procedure Treatment Rm 15 Thierno [facility] Work Phone: Hematology/Oncology Start: 02-24-2024 End: 02-24-2024 ambulatory LINDSEY ZUNIGA Hematology/Oncology Comment on above: Iron deficiency anem ia secondary to inadequate dietary iron intake (Primary Dx) Start: 02-24-2024 End: 02-24-2024 Patient encounter procedure Treatment Rm 16 Thierno [facility] Work Phone: Hematology/Oncology Start: 02-23-2024 End: 02-23-2024 Refill Chi Zamora MD Work Phone: [facility] [place] Comment on above: Refill Request SOCIAL WORK SERVICES (1ST TIME TREATMENT) Start: 02-23-2024 End: 02-23-2024 ambulatory [facility] Facility:[facility] Start: 02-21-2024 End: 02-21-2024 ambulatory LINDSEY ZUNIGA Hematology/Oncology Comment on above: Iron deficiency anem ia secondary to inadequate dietary iron intake (Primary Dx) Start: 02-21-2024 End: 02-21-2024 Patient encounter procedure Treatment Rm 16 Thierno [facility] Work Phone: Hematology/Oncology Start: 02-17-2024 End: 02-17-2024 ambulatory LINDSEY ZUNIGA Hematology/Oncology Comment on above: Iron deficiency anem ia secondary to inadequate dietary iron intake (Primary Dx) Start: 02-17-2024 End: 02-17-2024 Patient encounter procedure Treatment Rm 15 Thierno [facility] Work Phone: Hematology/Oncology Start: 02-16-2024 End: 02-16-2024 Telephone encounter Lindsey Zuniga Work Phone: Hematology/Oncology Start: 02-11-2024 End: 02-11-2024 Telephone encounter Financial Navigator Thierno Work Phone: Financial Services Comment on above: Benefits Investigati on Start: 02-03-2024 End: 02-08-2024 Telephone encounter Lindseywood Zuniga Work Phone: Hematology/Oncology Start: 02-02-2024 End: 02-02-2024 Patient encounter procedure YOLANDA CASH MD [facility] Start: 02-01-2024 End: 02-01-2024 ambulatory Lindsey Zuniga Work Phone: Hematology/Oncology Comment on above: Anemia, unspecified type (Primary Dx) Start: 02-01-2024 End: 02-01-2024 Patient encounter procedure Lindsey Zuniga Work Phone: Hematology/Oncology Start: 01-28-2024 End: 02-01-2024 Outreach Lab SRIDHAR MONTERO DO [facility] Start: 12-23-2023 End: 12-23-2023 Patient encounter procedure TROY SOLORIO [facility] Start: 12-20-2023 End: 12-21-2023 Emergency department patient visit [facility] Facility:[facility] Start: 12-19-2023 End: 12-19-2023 Patient encounter procedure Beverley Patrick PA-C Work Phone: [facility] Comment on above: Dysuria (Primary Dx) ; Urinary frequency; Urinary urgency Start: 12-01-2023 End: 12-01-2023 ambulatory YOLANDA CASH MD Facility:[facility] Start: 10-11-2023 End: 10-11-2023 ambulatory YOLANDA CASH MD Facility:[facility] Start: 10-11-2023 End: 10-11-2023 Patient encounter procedure YOLANDA CASH MD [facility] Start: 09-13-2023 End: 09-13-2023 Patient encounter procedure Chi Zamora MD Work Phone: [facility] [place] Comment on above: Paroxysmal atrial fi brillation (HCC) (Primary Dx); intermediate current use of antiarrhythmic drug; PAC (premature atrial contraction) Start: 07-12-2023 Telephone encounter Lilia alanis APRN.WAITER/WAITRESS TOURIST CLASS Work Phone: [facility] PROVID[facility] ADULT Comment on above: Results Start: 06-15-2023 Telephone encounter Lilia alanis SENIOR RADIATION PROTECTION TECHNICIAN.WAITER/WAITRESS TOURIST CLASS Work Phone: [facility] [place] Comment on above: Results Start: 06-14-2023 Telephone encounter Lilia alanis SENIOR RADIATION PROTECTION TECHNICIAN.WAITER/WAITRESS TOURIST CLASS Work Phone: [facility] Comment on above: Results Start: 06-14-2023 End: 06-14-2023 Subsequent hospital visit by physician Card Lab Stress 1 [place] [facility] Comment on above: History of atrial fi brillation [Z86.79] Start: 06-09-2023 Documentation procedure Mammography Coordinator [facility] Start: 06-09-2023 Letter encounter Mammography Coordinator [place] [facility] ARE[facility] NOT LISTED Start: 06-08-2023 End: 06-08-2023 Subsequent hospital visit by physician Screen Mammo [place] [facility]FLE[facility] Comment on above: Breast cancer screen ing by mammogram [Z12.31] Start: 05-28-2023 End: 05-28-2023 Patient encounter procedure Lilia Martinez APRN.WAITER/WAITRESS TOURIST CLASS Work Phone: [facility] [place] Comment on above: History of atrial fi brillation (Primary Dx); PAC (premature atrial contraction); Palpitations; 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; At risk for stroke; Hyperkalemia Start: 05-12-2023 End: 05-12-2023 ambulatory YOLANDA CASH MD Facility:[facility] Start: 05-12-2023 End: 05-12-2023 Patient encounter procedure YOLANDA CASH MD [facility] Start: 04-08-2023 Refill Chi Zamora MD Work Phone: [facility] [place] Comment on above: Refill Request Start: 02-26-2023 End: 03-02-2023 ambulatory IRIS BRANDT SENIOR RADIATION PROTECTION TECHNICIAN-WAITER/WAITRESS TOURIST CLASS Facility:[facility] Start: 10-12-2022 End: 10-12-2022 Patient encounter procedure Gaye Rowell PA-C Work Phone: [facility] [employer] Comment on above: Women's annual routi ne gynecological examination (Primary Dx); Screening for malignant neoplasm of cervix; Breast cancer screening by mammogram; Encounter for colorectal cancer screening; Screening for osteoporosis; Menopause; Osteopenia, unspecified location; At high risk for fracture; Uterine leiomyoma, unspecified location Start: 07-13-2022 Admission to [facility] surgery center Jaciel Hurd MD Work Phone: Orthopaedics Comment on above: Knee Surgery Start: 07-13-2022 ambulatory Jaciel Deleon Work Phone: 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) Start: 07-09-2022 End: 07-09-2022 Subsequent hospital visit by physician [facility] Work Phone: Radiology Comment on above: Left knee pain, unsp ecified chronicity [M25.562] Start: 06-17-2022 Orders Only Jaciel Deleon Work Phone: Orthopaedics Comment on above: Left knee pain, unsp ecified chronicity (Primary Dx) Start: 06-10-2022 Telephone encounter Jaciel conde MD Work Phone: Orthopaedics Comment on above: Appointment Start: 05-28-2022 End: 05-28-2022 Patient encounter procedure Chi Zamora MD Work Phone: [facility] [place] Comment on above: Paroxysmal atrial fi brillation (HCC) (Primary Dx); PAC (premature atrial contraction) Start: 05-22-2022 End: 05-22-2022 ambulatory [facility] Work Phone: Start: 05-22-2022 End: 05-22-2022 Patient encounter procedure [facility]-Laboratory, Specimen Start: 05-16-2022 Refill Lilia Desmond PERAZA Work Phone: [facility] [place] Comment on above: Refill Request Start: 05-15-2022 End: 05-15-2022 Patient encounter procedure YOLANDA CASH MD [facility] Start: 05-06-2022 End: 05-06-2022 Patient encounter procedure [facility]HAR [facility]TERO [facility] Start: 04-05-2022 Documentation procedure Mammography Coordinator [facility] Start: 04-05-2022 Letter encounter Mammography Coordinator [facility] [facility] NOT LISTED Start: 04-03-2022 End: 04-03-2022 Subsequent hospital visit by physician Screen Mammo [place] [facility] Comment on above: SCREENING Start: 01-22-2022 End: 01-26-2022 Outreach Lab SRIDHAR TRAYEARNEST DO [facility] Start: 12-22-2021 End: 12-26-2021 Outreach Lab SRIDHAR MONTERO DO [facility] Start: 11-20-2021 End: 11-20-2021 Emergency department patient visit NUPUR JUNG MD [facility] Start: 11-19-2021 End: 11-19-2021 Emergency department patient visit JANEEN CARLISLE [facility] Start: 11-11-2021 End: 11-11-2021 Patient encounter procedure YOLANDA CASH MD [facility] Start: 10-08-2021 End: 10-08-2021 Patient encounter procedure Gaye Rowell PA-C Work Phone: [facility] Comment on above: Women's annual routi nj gynecological examination (Primary Dx); Screening for malignant neoplasm of cervix; Breast cancer screening by mammogram; Postmenopausal osteoporosis; At high risk for fracture; Atrophic vaginitis Start: 08-21-2021 End: 08-21-2021 Patient encounter procedure YOLANDA CASH MD [facility] Start: 07-22-2021 Refill Chi Zamora MD Work Phone: [facility] [place] Comment on above: Refill Request Refill Request (LIOT HYRONINE) Start: 07-22-2021 Telephone encounter Sridhar Gillis MD Work Phone: [facility] General Endocrinology Comment on above: Future Appointment Start: 07-21-2021 Telephone encounter Chi Zamora MD Work Phone: [facility] [place] Comment on above: Medication Problem Start: 07-08-2021 End: 07-12-2021 Outreach Lab ASIYA CURRY [facility] Start: 06-09-2021 End: 06-09-2021 Patient encounter procedure SRIDHAR MONTERO DO [facility] Start: 04-09-2021 End: 04-09-[address] GABRIELLE BRADSHAW MD [facility] Start: 11-08-2020 Office outpatient ne w 30 minutes Aida Gil Work Phone: [id number] Work Phone: Start: 11-28-2018 Patient encounter procedure Daysiaurelio Johnson [facility] Work Phone: Start: 08-15-2018 Patient encounter procedure Daysi Johnson [facility] Work Phone: Start: 07-13-2018 Patient encounter procedure Daysiaurelio Johnson [facility] Work Phone: Start: 06-01-2018 Patient encounter procedure Daysiaurelio Johnson [facility] Work Phone: Start: 02-08-2018 Patient encounter procedure Daysiaurelio Johnson [facility] Work Phone: Patient encounter procedure Aida Gil Work Phone: [id number] Work Phone: Patient encounter status Aida Gil Work Phone: [id number] Work Phone: Procedures Date Procedure Procedure Detail Performing Clinician Start: 12-15-2024 Arthrocentesis aspir &/inj major jt/bursa w/us Jose Gutierrez SENIOR RADIATION PROTECTION TECHNICIAN.WAITER/WAITRESS TOURIST CLASS Work Phone: Start: 10-06-2024 Ecg routine ecg w/le ast 12 lds w/i&r Chi Zamora MD Work Phone: Start: 09-22-2024 Antibody screen CHI ZAMORA Comment on above: Order Comment: Speci men Type: BLOOD SPECIMENOrdering Facility: [facility] Address: [address] [place] [id number] Result Comment: Domenica ent has a previous clinically significant antibody Performed By: #### T SCR ####[facility] BLOOD BANKCLIA [id number] [place] [address] [place] Start: 08-03-2024 Colonoscopy flx dx w /collj spec when pfrmd Elizabeth Roger MD Work Phone: Start: 08-03-2024 Colonoscopy Satish smyth MD Work Phone: Start: 07-20-2024 Ecg routine ecg w/le ast 12 lds w/i&r Chi Zamora MD Work Phone: Start: 12-19-2023 Urnls dip stick/tabl et rgnt auto w/o microscopy [facility] Provider Start: 09-13-2023 Ecg routine ecg w/le ast 12 lds w/i&r Chi Zamora MD Work Phone: Start: 06-14-2023 Echo tthrc r-t 2d w/wom-mode compl spec&colr d Lilia Martinez SENIOR RADIATION PROTECTION TECHNICIAN.WAITER/WAITRESS TOURIST CLASS Work Phone: Start: 05-28-2023 Ecg routine ecg w/le ast 12 lds w/i&r Lilia Martinez SENIOR RADIATION PROTECTION TECHNICIAN.WAITER/WAITRESS TOURIST CLASS Work Phone: Start: 07-09-2022 Radiologic examinati on knee 3 views Jose Gutierrez SENIOR RADIATION PROTECTION TECHNICIAN.WAITER/WAITRESS TOURIST CLASS Work Phone: Start: 05-28-2022 Ecg routine ecg w/le ast 12 lds w/i&r Chi Zamora MD Work Phone: Start: 04-03-2022 Mammography Mammograph y Coordinator Start: 10-08-2021 Adult depression scr eening assessment Gaye Rowell PA-C Work Phone: Start: 06-24-2021 Total knee replacement SRIDHAR MONTERO DO Comment on above: rt Start: 10-03-2020 Mammography Chi campoverde MD Work Phone: Start: 09-18-2020 Adult depression scr eening assessment Chi Zamora MD Work Phone: Start: 10-23-2019 Electrocardiogram Start: 06-01-2018 Lipid 1996 panel - S klaus or Plasma Chi Zamora MD Work Phone: Start: 06-29-2016 Colonoscopy Chi campoverde MD Work Phone: Start: 02-12-2016 Lipid 1996 panel - S klaus or Plasma Chi Zamora MD Work Phone: Anaerobic microbial culture Bacterial culture Bone structure of fe mur (body structure) SRIDHAR MONTERO DO Comment on above: lt. shattered- 2 Destructive procedure MICHAE Crissy MONTERO DO Comment on above: heart-x2 12/2005 and 04/2012 Discectomy of spine SRIDHAR MONTERO DO Ganglion cyst (morph ologic abnormality) SRIDHAR MONTERO uSpeak Comment on above: rt wrist History of Ant Spina l Diskectomy, Osteophytectomy Lumbar Interspace Daysi Johnson History of Catheter Ablation Daysi Johnson Comment on above: twice; History of Femur Repair Willie Johnson Comment on above: 2001 left ORIF; History of Knee Surgery Willie Johnson Comment on above: L done twice; Investigation of transfusion reaction Knee region structur e (body structure) SRIDHAR MONTERO uSpeak Comment on above: torn cartilage-1974 Screening colonoscopy Daysi Johnson Comment on above: 2008-no polyps; Tonsillectomy Daysi Johnson Comment on above: 1961; Total knee replacement Rajesh Johnson Comment on above: 1974 & 1995 Left Kne e Partial Knee [id number] Total Knee Replacement x2; Right; Total knee replacement AUDRA MONTERO DO Comment on above: x3 2006 and 10/2019 Plan of Treatment Date Care Activity Detail Author Start: 2032 RSV Vaccine (1 - 1-dose 75+ series) RSV Vaccine (1 - 1-dose 75+ series) [facility] Start: 05-03-2032 Urine microalbumin profile [facility] Start: 09-24-2027 Diabetes Screening Diabetes Screening [facility] Start: 01-31-2027 Diabetes Screening Diabetes Screening [facility] Start: 10-08-2026 PAP TESTING PAP TESTING [facility] Start: 06-14-2026 Diabetes Screening Diabetes Screening [facility] Start: 09-18-2025 PAP TESTING PAP TESTING [facility] Start: 08-03-2025 Screening for malignant neoplasm of colon [facility] Start: 04-24-2025 End: 04-24-2025 ambulatory Hematology/Oncology Comment on above: 1YR OV / Q3MO LAB* 1YR OV/LAB EARLY* Start: 02-05-2025 End: 02-05-2025 ambulatory 02/05/2025 8:30 AM EDT Results Only Jewels Gonzalez [facility] [address] [place] [address] Q3MO LAB* [place] [facility] Comment on above: Q3MO LAB* Start: 01-23-2025 End: 01-23-2025 Patient encounter procedure 01/23/2025 11:00 AM EDT Office Visit [facility] [place] [address] [place] [address] Jnoel White, SENIOR RADIATION PROTECTION TECHNICIAN.WAITER/WAITRESS TOURIST CLASS [address] [place] [address] 4 month s/p PVI [facility] [place] Comment on above: 4 month s/p PVI Start: 12-29-2024 End: 12-29-2024 Patient encounter procedure 12/29/2024 3:00 PM EDT Office Visit [facility] [address] [place] [address] Jonel White, SENIOR RADIATION PROTECTION TECHNICIAN.WAITER/WAITRESS TOURIST CLASS [address] [place] [address] (Fax) 3mo f/u PAF. kh [facility] Comment on above: 3mo f/u PAF. kh Start: 12-26-2024 End: 12-26-2024 Patient encounter procedure 12/26/2024 10:30 AM EDT Appointment [facility] [address] [place] [address] Persistent atrial fibrillation (HCC) [I48.19] [facility] Comment on above: Persistent atrial fibrillation (HCC) [I4 8.19] Start: 12-26-2024 End: 12-26-2024 Patient encounter procedure 12/26/2024 8:30 AM EDT Appointment [facility] [address] [place] [address] Persistent atrial fibrillation (HCC) [I48.19] [facility] Comment on above: Persistent atrial fibrillation (HCC) [I4 8.19] Start: 12-25-2024 Influenza vaccination [facility] Start: 12-23-2024 End: 10-11-2025 Echocardiography ECHO Cardiology Routine Persistent atrial fibrillation (HCC) Dyspnea, unspecified type Expected: 12/23/2024, Expires: 10/11/2025 [facility] Work Phone: Comment on above: Expected: 12/23/2024, Expires: Start: 12-23-2024 End: 10-11-2025 OUTSIDE VENDOR CARDIAC OUTPATIENT EXTENDED RHYTHM RECORDING (WITHOUT TELEMETRY) OUTSIDE VENDOR CARDIAC OUTPATIENT EXTENDED RHYTHM RECORDING (WITHOUT TELEMETRY) Holter Routine Persistent atrial fibrillation (HCC) Expected: 12/23/2024, Expires: 10/11/2025 [facility] Comment on above: Expected: 12/23/2024, Expires: Start: 12-19-2024 End: 12-19-2024 Patient encounter procedure Orthopaedics Comment on above: lab and asp results Left TKA DOS 11/08/19 20 -- lab and asp results (LV 11/07/2024) Start: 12-15-2024 End: 12-15-2024 Patient encounter procedure 12/15/2024 1:00 PM EDT Appointment Radiology [address] [place] [address] Lt Knee Aspiration Radiology Comment on above: Lt Knee Aspiration Start: 11-07-2024 End: 11-07-2024 Patient encounter procedure Radiology Comment on above: L knee 3v lft knee Start: 11-06-2024 End: 11-06-2024 ambulatory 11/06/2024 8:30 AM EDT Results Only [facility] [address] [place] [address] Q3MO LAB* [facility] Comment on above: Q3MO LAB* Start: 10-06-2024 End: 10-06-2024 Patient encounter procedure 10/06/2024 11:00 AM EDT Office Visit [facility] [address] [place] [address] Chi Zamora MD [address] [place] [phone] 3 month [facility] [place] Comment on above: 3 month Start: 09-22-2024 Subsequent hospital visit by physician 09/22/2024 Hospital Encounter [facility] [address] [place] [address] Chi Zamora MD [address] [place] [phone] (Fax) Paroxysmal atrial fibrillation (HCC) [I48.0] [facility] Comment on above: Paroxysmal atrial fibrillation (HCC) [I4 8.0] Start: 08-07-2024 End: 08-07-2024 ambulatory [facility] Comment on above: Q3MO* Q[facility]MO LAB* Start: 08-03-2024 End: 08-03-2024 Patient encounter procedure 08/03/2024 1:00 PM EDT Appointment Ambulatory Surgery [address] [place] [address] Satish Flynn MD [address] [place] [address] Ambulatory Surgery Start: 07-20-2024 End: 07-20-2024 Patient encounter procedure 07/20/2024 2:00 PM EDT Office Visit [facility] [address] [place] [address] Chi Zamora MD [address] [place] [phone] Review/Discuss options [facility] Comment on above: Review/Discuss options Start: 06-08-2024 Screening for malignant neoplasm of breast Mammogram Screening [facility] Start: 05-08-2024 End: 05-08-2024 ambulatory 05/08/2024 9:30 AM EST Visit (SP) Office Hematology/Oncology [address] [place] [address] Lindsey Zuniga [address] [place] [address] OV/LABS 05/04* Hematology/Oncology Comment on above: OV/LABS 05/04* Start: 05-04-2024 End: 05-04-2024 ambulatory 05/04/2024 10:00 AM EST Results Only [facility] [address] [place] [address] CBC/IRON STUDIES* [facility] [place] [facility] Comment on above: CBC/IRON STUDIES* Start: 04-26-2024 Advance Directive Discussion Advance Directive Discussion [facility] Start: 04-26-2024 Medicare Advantage Annual Wellness Visit Medicare Advantage Annual Wellness Visit [facility] Start: 03-02-2024 End: 03-02-2024 ambulatory Hematology/Oncology Comment on above: QWK IRON SUCROSE 300/C3-3/AUTH EXP 04/25* 2ND Start: 02-28-2024 End: 02-28-2024 ambulatory Hematology/Oncology Comment on above: 2ND Start: 02-24-2024 End: 02-24-2024 ambulatory Hematology/Oncology Comment on above: QWK IRON SUCROSE 300/C2-3/AUTH EXP 04/25* 2ND Start: 02-21-2024 End: 02-21-2024 ambulatory 02/21/2024 9:00 AM EDT Visit (SP) Office Hematology/Oncology [address] [place] [address] 2ND Hematology/Oncology Comment on above: 2ND Start: 02-17-2024 End: 02-17-2024 ambulatory Hematology/Oncology Comment on above: START QWK IRON SUCROSE 300/C1-3/AUTH EXP 04/25/24* 2ND Start: 02-01-2024 End: 05-02-2024 Methylmalonate [Moles/volume] in Serum or Plasma [facility] Work Phone: Comment on above: Expected: 02/01/2024, Expires: Start: 12-26-2023 Covid-19 Vaccine () Covid-19 Vaccine () [facility] Start: 12-26-2023 Influenza vaccination [facility] Start: 10-20-2023 End: 10-20-2023 Patient encounter procedure 10/20/2023 9:30 AM EDT Office Visit [facility] [address] [place] [id number] Chiquis Lino MD [address] [place], [place] [id number] Annual [facility] Comment on above: Annual Start: 10-13-2023 COLORECTAL CANCER SCREENING COLORECTAL CANCER SCREENING [facility] Start: 10-13-2023 FECAL OCCULT BLOOD FECAL OCCULT BLOOD [facility] Start: 10-13-2023 Screening for malignant neoplasm of colon [facility] Start: 07-05-2023 HPV TESTING HPV TESTING [facility] Start: 06-01-2023 Lipid panel Lipid Screening [facility] Start: 05-28-2023 End: 08-27-2023 Basic metabolic 2000 panel - Serum or Plasma BASIC METABOLIC PNL Lab Routine History of atrial fibrillation PAC (premature atrial contraction) Palpitations intermediate current use of antiarrhythmic drug Hyperkalemia Expected: 05/28/2023, Expires: 08/27/2023 [facility] Work Phone: Comment on above: Expected: 05/28/2023, Expires: Start: 04-26-2023 Advance Directive Discussion Advance Directive Discussion [facility] Start: 04-26-2023 Behavioral Health Screening Behavioral Health Screening [facility] Start: 04-26-2023 Depression Assessment Depression Assessment [facility] Start: 04-03-2023 Mammography MAMMOGRAM [facility] Start: 04-03-2023 Screening for malignant neoplasm of breast Mammogram Screening [facility] Start: 12-25-2022 Covid-19 Vaccine ( season) Covid-19 Vaccine ( season) [facility] Start: 12-25-2022 Influenza vaccination [facility] Start: 11-19-2022 DIABETES SCREEN DIABETES SCREEN [facility] Start: 11-19-2022 Diabetes Screening Diabetes Screening [facility] Start: 10-08-2022 Adult depression screening assessment DEPRESSION SCREENING [facility] Start: 2022 ADVANCE DIRECTIVE DISCUSSION ADVANCE DIRECTIVE DISCUSSION [facility] Start: 2022 Pneumococcal Vaccine: 65+ (1 - PCV) Pneumococcal Vaccine: 65+ (1 - PCV) [facility] Start: 2022 Pneumococcal Vaccine: 65+ (1 of 1 - PCV) Pneumococcal Vaccine: 65+ (1 of 1 - PCV) [facility] Start: 2022 PNEUMOCOCCAL: 65+ (1 - PCV) PNEUMOCOCCAL: 65+ (1 - PCV) [facility] Start: 2022 Screening for osteoporosis Bone Density Screening [facility] Start: 07-18-2022 End: 09-17-2022 C reactive protein [Mass/volume] in Serum or Plasma C-REACTIVE PROTEIN (CRP) Lab Routine Status post revision of total replacement of left knee Expected: 07/18/2022, Expires: 09/17/2022 [facility] Work Phone: Comment on above: Expected: 07/18/2022, Expires: 3 Start: 07-18-2022 End: 09-17-2022 CBC panel - Blood by Automated count CBC Lab Routine Status post revision of total replacement of left knee Expected: 07/18/2022, Expires: 09/17/2022 [facility] Work Phone: Comment on above: Expected: 07/18/2022, Expires: 3 Start: 07-18-2022 End: 09-17-2022 Comprehensive metabolic 2000 panel - Serum or Plasma COMP METABOLIC PANEL Lab Routine Status post revision of total replacement of left knee Expected: 07/18/2022, Expires: 09/17/2022 [facility] Work Phone: Comment on above: Expected: 07/18/2022, Expires: 3 Start: 07-18-2022 End: 09-17-2022 Erythrocyte sedimentation rate SED RATE WESTERGREN Lab Routine Status post revision of total replacement of left knee Expected: 07/18/2022, Expires: 09/17/2022 [facility] Work Phone: Comment on above: Expected: 07/18/2022, Expires: 3 Start: 07-18-2022 End: 09-17-2022 TYPE AND SCREEN,30 DAY TYPE AND SCREEN,30 DAY Blood Bank Routine Status post revision of total replacement of left knee Expected: 07/18/2022, Expires: 09/17/2022 [facility] Work Phone: Comment on above: Expected: 07/18/2022, Expires: 3 Start: 05-22-2022 [facility] Start: 04-26-2022 DEPRESSION ASSESSMENT DEPRESSION ASSESSMENT [facility] Start: 12-25-2021 Influenza vaccination [facility] Start: 10-03-2021 Mammography MAMMOGRAM [facility] Start: 09-18-2021 Adult depression screening assessment DEPRESSION SCREENING [facility] Start: 09-18-2021 COLORECTAL CANCER SCREENING COLORECTAL CANCER SCREENING [facility] Start: 09-18-2021 FECAL OCCULT BLOOD FECAL OCCULT BLOOD [facility] Start: 08-25-2021 COVID-19 VACCINE (4 - Booster for Pfizer series) COVID-19 VACCINE (4 - Booster for Pfizer series) [facility] Start: 06-22-2021 COVID-19 VACCINE (4 - Booster for Pfizer series) COVID-19 VACCINE (4 - Booster for Pfizer series) [facility] Start: 04-26-2021 DEPRESSION ASSESSMENT DEPRESSION ASSESSMENT [facility] Start: 02-11-2021 Lipid panel Lipid Screening [facility] Start: 02-11-2021 LIPID SCREEN LIPID SCREEN [facility] Start: 12-25-2020 Influenza vaccination INFLUENZA (#1) [facility] Start: 2017 RSV Vaccine (1 - 1-dose 60+ series) RSV Vaccine (1 - 1-dose 60+ series) [facility] Start: 2017 RSV Vaccine (1 - Risk 60-74 years 1-dose series) RSV Vaccine (1 - Risk 60-74 years 1-dose series) [facility] Start: 06-29-2017 Colonoscopy COLONOSCOPY [facility] Start: 06-29-2017 Screening for malignant neoplasm of colon Colonoscopy [facility] Start: 07-29-2007 Pneumococcal Vaccine: 50+ (1 of 1 - PCV) Pneumococcal Vaccine: 50+ (1 of 1 - PCV) [facility] Start: 07-29-2007 SHINGRIX VACCINE (1 of 2) SHINGRIX VACCINE (1 of 2) [facility] Start: 2002 COLOGUARD (FIT-DNA) COLOGUARD (FIT-DNA) [facility] Start: [address] COLONOGRAPHY [facility] Start: 2002 Screening for malignant neoplasm of colon [facility] Start: 2002 SIGMOIDOSCOPY SIGMOIDOSCOPY [facility] Start: 1976 Urine microalbumin profile DTAP,TDAP,TD (1 - Tdap) [facility] Start: 07-29-1975 ANNUAL PCP TEAM CHRONIC DISEASE VISIT ANNUAL PCP TEAM CHRONIC DISEASE VISIT [facility] Start: 07-29-1975 Anxiety Screening Anxiety Screening [facility] Start: 07-29-1975 Depression Screening Depression Screening [facility] Start: 07-29-1975 HEPATITIS C SCREENING HEPATITIS C SCREENING [facility] Start: 07-29-1975 Hepatitis C screening Hepatitis C Screening [facility] Start: 07-29-1975 HIV SCREENING HIV SCREENING [facility] Start: 07-29-1975 HIV screening HIV Screening [facility] Acid fast bacilli culture [facility] Bacteria identified in Body fluid by Culture BACTERIAL CULTURE AND GRAM STAIN, STERILE BODY FLUID Microbiology Routine Arthralgia of left lower leg Ordered: 11/07/2024 [facility] Comment on above: Ordered: 11/07/2024 Bacteria identified in Urine by Culture URINE CULTURE Microbiology Routine Dysuria Urinary frequency Urinary urgency Ordered: 12/19/2023 [facility] Work Phone: Comment on above: Ordered: 12/19/2023 End: 05-08-2025 CBC W Auto Differential panel - Blood COMPLETE BLOOD COUNT AND DIFFERENTIAL Lab STAT Iron 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 dietary iron intake Anemia, unspecified type Every 3 months for 5 Occurrences starting 05/08/2024 until 05/08/2025 [facility] Comment on above: Every 3 months for 5 Occurrences startin g 05/08/2024 until 05/08/2025 DXA-AXIAL SKELETON DXA-AXIAL SKE LETON Radiology Routine Screening for osteoporosis Menopause 1 Occurrences starting 10/12/2022 [facility] [employer] Work Phone: Comment on above: 1 Occurrences starting 10/12/2022 End: 05-28-2024 Echocardiography ECHO Cardiology Routine History of atrial fibrillation PAC (premature atrial contraction) 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 1 Occurrences starting 05/28/2023 until 05/28/2024 [facility] Work Phone: Comment on above: 1 Occurrences starting 05/28/2023 until 05/28/2024 Ephys evl trnsptl tx atrial fib isolat pulm vein COMPRE EP EVAL ABLTJ ATR FIB PULM VEIN ISOLATION Paroxysmal atrial fibrillation (HCC) [facility] End: 05-28-2024 EXTENDED WEAR [employer] HATCHERY WORKER PATCH EXTENDED WEAR [employer] HATCHERY WORKER PATCH ECG Routine History of atrial fibrillation PAC (premature atrial contraction) Palpitations intermediate current use of antiarrhythmic drug 1 Occurrences starting 05/28/2023 until 05/28/2024 [facility] Work Phone: Comment on above: 1 Occurrences starting 05/28/2023 until 05/28/2024 End: 05-08-2025 Ferritin [Mass/volume] in Serum or Plasma FERRITIN Lab Routine Iron 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 dietary iron intake Anemia, unspecified type Every 3 months for 5 Occurrences starting 05/08/2024 until 05/08/2025 [facility] Comment on above: Every 3 months for 5 Occurrences startin g 05/08/2024 until 05/08/2025 End: 12-07-2025 Guidance for arthrocentesis of Major joint US ASP/INJ KNEE JT/BURSA LEFT Radiology Routine Arthralgia of left lower leg 1 Occurrences starting 11/07/2024 until 12/07/2025 [facility] Work Phone: Comment on above: 1 Occurrences starting 11/07/2024 until 12/07/2025 End: 08-14-2026 Guidance for injection of Knee IMAGING GUIDED KNEE INJECTION LEFT Radiology Routine Arthralgia of left lower leg 1 Occurrences starting 11/08/2024 until 12/07/2025 [facility] Work Phone: Comment on above: 1 Occurrences starting 11/08/2024 until 12/07/2025 End: 12-31-2025 Guidance for injection of Knee IMAGING GUIDED KNEE ASPIRATION LEFT Radiology Routine Arthralgia of left lower leg 1 Occurrences starting 12/04/2024 until 12/31/2025 [facility] Work Phone: Comment on above: 1 Occurrences starting 12/04/2024 until 12/31/2025 End: 05-08-2025 Iron and Iron binding capacity panel - Serum or Plasma IRON AND TIBC Lab Routine Iron 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 dietary iron intake Anemia, unspecified type Every 3 months for 5 Occurrences starting 05/08/2024 until 05/08/2025 [facility] Work Phone: Comment on above: Every 3 months for 5 Occurrences startin g 05/08/2024 until 05/08/2025 End: 04-03-2022 NILO SCREENING [facility] Work Phone: Comment on above: 1 Occurrences starting 04/03/2022 until 04/03/2022 NILO SCREENING NILO SCREENING Ra diology Routine Breast cancer screening by mammogram 1 Occurrences starting 10/12/2022 [employer] Work Phone: Comment on above: 1 Occurrences starting 10/12/2022 MG Breast Screening NILO SCREENIN G Radiology Routine Breast cancer screening by mammogram 06/08/2023 10:59 AM EST [facility] Work Phone: Mycobacterium sp identified in Unspecified specimen by Organism specific culture [facility] PAP REFLEX HPV MRNA WHEN ASCUS PAP REFLEX HPV MRNA WHEN ASCUS Lab Routine Women's annual routine gynecological examination Screening for malignant neoplasm of cervix Ordered: 10/08/2021 [employer] Work Phone: Comment on above: Ordered: 10/08/2021 PAP REFLEX HPV MRNA WHEN ASCUS PAP REFLEX HPV MRNA WHEN ASCUS Lab Routine Women's annual routine gynecological examination Screening for malignant neoplasm of cervix Ordered: 10/12/2022 [employer] Work Phone: Comment on above: Ordered: 10/12/2022 End: 07-21-2025 Screening colonoscopy COLONOSCOPY SCREENING Endoscopy Routine Personal history of colon cancer 1 Occurrences starting 07/21/2024 until 07/21/2025 [facility] Work Phone: Comment on above: 1 Occurrences starting 07/21/2024 until 07/21/2025 End: 11-07-2022 Screening mammography bi 2-view breast inc cad NILO SCREENING Radiology Routine Breast cancer screening by mammogram 1 Occurrences starting 10/08/2021 until 11/07/2022 [facility] [employer] Work Phone: Comment on above: 1 Occurrences starting 10/08/2021 until 11/07/2022 SYNOVIAL FLUID, ROUTINE SYNOVIAL FLUID, ROUTINE Lab Routine Arthralgia of left lower leg Ordered: 11/07/2024 [facility] Comment on above: Ordered: 11/07/2024 End: 12-01-2025 XR Knee AP and Lateral and Merchants XR KNEE POST OP 3V AP/LAT/MERCHANT LEFT Radiology Routine Left knee pain, unspecified chronicity 1 Occurrences starting 10/31/2024 until 12/01/2025 [facility] Work Phone: Comment on above: 1 Occurrences starting 10/31/2024 until 12/01/2025 XR Knee AP and Later al and Merchants XR KNEE POST OP 3V AP/LAT/MERCHANT LEFT Radiology Routine Left knee pain, unspecified chronicity 11/07/2024 3:15 PM EDT [facility] Work Phone: End: 07-17-2023 XR KNEE POST OP 3V AP/LAT/MERCHANT LEFT XR KNEE POST OP 3V AP/LAT/MERCHANT LEFT Radiology Routine Left knee pain, unspecified chronicity 1 Occurrences starting 06/18/2022 until 07/17/2023 [facility] Work Phone: Comment on above: 1 Occurrences starting 06/18/2022 until 07/17/2023 [facility] Immunizations Immunization Date Immunization Notes Care Provider Artie ham 05-03-2022 tetanus toxoid, redu rabia diphtheria toxoid, and acellular pertussis vaccine, adsorbed SRIDHAR TRAYEARNEST [facility] 04-27-2021 SARS-CoV-2 mRNA (tozinameran) vaccine SRIDHAR MONTERO DO [facility] 08-02-2020 Pfizer-BioNTech COVI D-19 Vacc 30 MCG/0.3ML Intramuscular Suspension Aida Gil Work Phone: [facility] 07-25-2020 SARS-CoV-2 mRNA (tozinameran) vaccine SRIDHAR MONTERO DO [facility] 07-10-2020 Pfizer-BioNTech COVI D-19 Vacc 30 MCG/0.3ML Intramuscular Suspension Aida Gil Work Phone: [facility] 06-24-2020 SARS-CoV-2 (COVID-19 ) mRNA-1273 vaccine SRIDHAR MONTERO DO [facility] 04-26-2017 diphtheria and tetan us toxoids, adsorbed for pediatric use SRIDHAR MNOTERO DO [facility] Payers Date Payer Category Payer Self-pay [id number] 2023 Private Health Insurance 4da [id number] 2023 Unknown 2021 [place] [id number] 2021-Present [phone] [address] [place] [address] [place] [id number] 2021 Medicare [employer] [id number] 2021-Present [phone] [address] [place] [address] [place] [id number] 2021 [place] Care[place] [id number] 2021 Medicare [id number] 1955 Unknown [id number]. 2. 1955 Unknown [id number]. 2. 1955 Unknown [id number] .840.1.079087.3.579. 2. 1955 Unknown [id number] .840.1.668138.3.579. 2. 1955 Unknown [id number] .840.1.213862.3.579. 2. 1955 Unknown [id number] 2.16.840.1.104680.3.579. 2. 1955 Unknown [id number] 2.16.840.1.084695.3.579. 2. 1955 Unknown [id number] 2.16.840.1.404480.3.579. 2. 1955 Unknown [id number] 2.16.840.1.154075.3.579. 2. 1955 Unknown [id number] 2.16.840.1.333743.3.579. 2. 1955 Unknown [id number] 2.16.840.1.087494.3.579. 2. 1955 Unknown [id number] 2.16.840.1.010591.3.579. 2. 1955 Unknown [id number] 2.16.840.1.251156.3.579. 2.7 1955 Unknown [id number] 2.16.840.1.578426.3.579. 2.627 Unknown [id number] 2.16.840.1.346854.3.579. 2.462 Unknown [id number] [id number]. 2.462 Social History Date Type Detail Facility Start: 09-08-2016 End: 10-12-2022 [facility] Comment on above: Homemaker; HS Grad; Quit smoking at abou t 30 years old; Start: 1955 Sex Assigned At Female A [facility] Start: 06-06-2021 End: 12-23-2023 Ex-smoker (finding) [facility] Comment on above: Quit at age 31 yrs Start: 08-17-1977 End: 08-18-1987 History of tobacco use Current smoker [facility] Start: 08-17-1977 End: 08-18-1987 History of tobacco use Cigarette Smoker [facility] Start: 06-09-2021 End: 12-19-2024 Alcohol intake Current drinker of alcohol (finding) [facility] Start: 01-17-2020 History SDOH Alcohol Frequency 4 [facility] Start: 01-17-2020 History SDOH Alcohol Std Drinks 1 [facility] Start: 1955 Sex Assigned At Not on file C [facility] Start: 05-24-2021 End: 10-08-2021 Exposure to SARS-CoV-2 (event) Not sure [facility] Start: 09-08-2016 End: 07-20-2024 Tobacco use and exposure Smokeless tobacco non-user [facility] Start: 06-11-2021 Tobacco smoking stat us HIIS Unknown if ever smoked [facility] Start: 01-17-2020 End: 10-12-2022 Alcohol Use Disorder Identification Test - Consumption [AUDIT-C] [facility] How often to you hav e a drink containing alcohol? 2-3 time sa week [facility] How many standard dr inks containing alcohol do you have on a typical day? 1 or 2 [facility] How often do you hav e 6 or more drinks on 1 occasion? Never [facility] Start: 03-27-2012 Adult Depression Screening Assessment 0 [facility] Work Phone: Sexual Orientation Corinne H gualberto [facility] Start: 09-19-2020 Sex Female (finding) [facility] NEGATED: [facility] Work Phone: Medical Equipment Procedure Code Equipment Code Equipment Origin al Text Equipment Identifier Dates Total replacement of knee joint DOUGH,CEMENT [id number] FDA Start: 06-25-2021 Total replacement of knee joint DOUGH,CEMENT [id number] FDA Start: 06-25-2021 Total replacement of knee joint METAL ALTERNATIVE CR FEMORAL FDA Start: 06-25-2021 Total replacement of knee joint ([id number]) Uncoated knee tibia prosthesis, metallic [id number] FDA Start: 06-25-2021 Total replacement of knee joint ([id number]) Uncoated knee tibia prosthesis, metallic [id number] FDA Start: 06-25-2021 Total replacement of knee joint ([id number]) Polyethylene patella prosthesis ()[id number] FDA Start: 06-25-2021 Total replacement of knee joint ([id number]) Tibial insert [id number] FDA Start: 06-25-2021 Goals Date Patient Goal Desired Activity /State Personal health goal Functional Status Date Assessment Result Facility 09-23-2024 Are you deaf, or do you have serious difficulty hearing No 09/23/2024 10:53 AM Liz Levin, SHAWN No [facility] 09-23-2024 Are you blind, or do you have serious difficulty seeing, even when wearing glasses No 09/23/2024 10:53 AM Liz Levin RN No [facility] 09-23-2024 Do you have serious difficulty walking or climbing stairs No 09/23/2024 10:53 AM Liz Levin RN No [facility] 09-23-2024 Do you have difficul ty dressing or bathing No 09/23/2024 10:53 AM Liz Levin, SHAWN No [facility] 09-23-2024 Because of a physica l, mental, or emotional condition, do you have difficulty doing errands alone such as visiting a physician's office or shopping No 09/23/2024 10:53 AM Liz Levin RN No [facility] 03-06-2024 Functional Status Awake [facility] 03-06-2024 Functional Status Maintained [facility] 11-20-2021 Functional Status Assistive Device None A [facility] 11-19-2021 Functional Status Assistive Device None A [facility] 11-19-2021 Functional Status Room check performed [facility] NEGATED: Highlighted row Functional performance Functional status health issues are not documented Disease [facility] Work Phone: Mental Status Date Assessment Result Facility 09-23-2024 Because of a physical, mental, or emotional condition, do you have serious difficulty concentrating, remembering, or making decisions No 09/23/2024 10:53 AM EDT Liz Vasquez RN No [facility] 03-06-2024 Mental Status Oriented x 4 [facility] 03-06-2024 Mental Status [facility] 11-20-2021 Mental Status Orientation Ori [facility]ted x 4 [facility] 11-20-2021 Mental Status [facility] 11-19-2021 Mental Status Orientation [facility] x 4 [facility] 11-19-2021 Mental Status [facility] NEGATED: Highlighted row Cognitive function [Interpretation] Cognitive status health issues are not documented Disease [facility] Work Phone: Clinical Notes 10-12-2017 to 01-23-2025 Jaciel Hurd MD - 12/19/2024 8:11 PM EDTSOlena carter RT(R) - 12/15/2024 1:00 PM EDTTelephone Encounter - Margarita Reynolds RN - 12/01/2024 3:45 PM EDTSJaciel lim MD - 11/07/2024 3:41 PM EDT Note Date & Type Note Facility 01-23-2025 Note HNO ID: [id number] Author: CECILIA PEREZ RN Service: ? Author Type: Registered Nurse Type: Patient Education Filed: 01/23/2025 13:44 Note Text: Patient educated on 7 day patch monitor, and verbalizes understanding. [facility] 01-23-2025 Note HNO ID: [id number] Author: OSEAS IZAGUIRRE MD Service: ? Author Type: Physician Type: Procedures Filed: 02/06/2025 12:10 Note Text: Patient Name: Bella Morillo : 1955 Ordering Provider: Chi Zamora Indication: I48.19 Other persistent atrial fibrillation Type of Monitor: Extended Monitoring-Zio Patch Enrollment Dates: 01/23/2025-01/30/2025 IRHYTHM FINDINGS: Patient had a min HR of 51 bpm, max HR of 203 bpm, and avg HR of 69 bpm. Predominant underlying rhythm was Sinus Rhythm. Slight P wave morphology changes were noted. 64 Supraventricular Tachycardia runs occurred, the run with the fastest interval lasting 4 beats with a max rate of 203 bpm, the longest lasting 15.0 secs with an avg rate of 119 bpm. Some episodes of Supraventricular Tachycardia may be possible Atrial Tachycardia with variable block. Isolated SVEs were rare (<1.0%), SVE Couplets were rare (<1.0%), and SVE Triplets were rare (<1.0%). Isolated VEs were rare (<1.0%), VE Couplets were rare (<1.0%), and no VE Triplets were present. Agree with technical interpretation. [facility] 12-19-2024 Note HNO ID: [id number] Author: JACIEL HURD MD Service: ? Author Type: Physician Type: Progress Notes Filed: 12/19/2024 20:20 Note Text: Orthopaedic Office Note: December 19, 2024 8:15 PM Bella Morillo 69 year old History: Bella Morillo is a 69 year old with previous TKA, revision TKA, extensor mechanism rupture t/w marlex mesh, now failed. Infection has been ruled out She has a nickel allergy We have discussed surgical options at last appts. Here to discuss details and scheduling Subjective: See above Updated ROS: No changes Updated Exam: LLE Lower Extremity Mod effusion, seroma No increased warmth or erythema Stable ligamentous exam 40 degree extensor lag, motion intact otherwise Updated Imaging: Unchanged revision knee Assessment and Plan: Again we discussed all options. Non-op, full revision with repeat mesh and patellectomy, repeat mesh and patellectomy, and above knee amputation. We discussed the morbidity of removal of implants, as well as the limited options with her nickel allergy. With full discussion of risks, benefits, expected outcomes, recovery, she would like to proceed with mesh reconstruction and casting. Will use mesh, patellectomy, 3 months in cast, then hinged brace for 4 weeks with gradual motion. I spent a total of approximately 35 minutes on the date of the service which included preparing to see the patient, [id number] patient care, completing clinical documentation, obtaining and/or reviewing separately obtained history, performing a medically appropriate examination, counseling and educating the patient/family/caregiver, ordering medications, tests, or procedures, communicating with other HCPs (not separately reported), independently interpreting results (not separately reported), communicating results to the patient/family/caregiver, and care coordination (not separately reported). Jaciel Hurd MD Orthopaedic Surgery [facility] 12-19-2024 History of Presen t illness Narrative Orthopaedic Office Note: December 19, 2024 8:15 PM Bella Morillo 69 year old History: Bella Morillo is a 69 year old with previous TKA, revision TKA, extensor mechanism rupture t/w marlex mesh, now failed. Infection has been ruled out She has a nickel allergy We have discussed surgical options at last appts. Here to discuss details and scheduling Subjective: See above Updated ROS: No changes Updated Exam: LLE Lower Extremity Mod effusion, seroma No increased warmth or erythema Stable ligamentous exam 40 degree extensor lag, motion intact otherwise Updated Imaging: Unchanged revision knee Assessment and Plan: Again we discussed all options. Non-op, full revision with repeat mesh and patellectomy, repeat mesh and patellectomy, and above knee amputation. We discussed the morbidity of removal of implants, as well as the limited options with her nickel allergy. With full discussion of risks, benefits, expected outcomes, recovery, she would like to proceed with mesh reconstruction and casting. Will use mesh, patellectomy, 3 months in cast, then hinged brace for 4 weeks with gradual motion. I spent a total of approximately 35 minutes on the date of the service which included preparing to see the patient, [id number] patient care, completing clinical documentation, obtaining and/or reviewing separately obtained history, performing a medically appropriate examination, counseling and educating the patient/family/caregiver, ordering medications, tests, or procedures, communicating with other HCPs (not separately reported), independently interpreting results (not separately reported), communicating results to the patient/family/caregiver, and care coordination (not separately reported). Jaciel Hurd MD Orthopaedic Surgery documented in this encounter [facility] 12-15-2024 History of Presen t illness Narrative Radiology Service Progress Note PATIENT NAME: Bella Morillo DATE OF SERVICE: December 15, 2024 TIME: 1:56 PM PATIENT IDENTITY VERIFICATION COMPLETED USING TWO (2) IDENTIFIERS: Name and Date of confirmed by patient verbally and Name and Date of confirmed by identification band. FALL SCREENING: Has the patient had 2 falls in the last year or 1 fall with injury or currently using an Ambulatory Assistive Device (Walker, Cane, Wheelchair, Crutches, etc.)? No PATIENT GENDER DATA: Assigned female at . status: : No status: NO. PATIENT RELEVANT IMPLANT DATA REVIEWED: Not Applicable PATIENT PRESENTS WITH AN IMPLANTABLE OR ATTACHED CUPOLA HOIST OPERATOR: No RADIOLOGY DEPARTMENT: General X-ray: Exam(s) Completed: ASPIRATION LEFT KNEE PERIPHERAL IV DATA: Not applicable SIGNED BY: WILLIAMS Brar) December 15, 2024 1:56 PM documented in this encounter [facility] 12-15-2024 Note HNO ID: [id number] Author: OLENA WHITTINGTON RT(R) Service: Radiology Author Type: Technologist Type: Progress Notes Filed: 12/15/2024 13:57 Note Text: Radiology Service Progress Note PATIENT NAME: Bella Morillo DATE OF SERVICE: December 15, 2024 TIME: 1:56 PM PATIENT IDENTITY VERIFICATION COMPLETED USING TWO (2) IDENTIFIERS: Name and Date of confirmed by patient verbally and Name and Date of confirmed by identification band. FALL SCREENING: Has the patient had 2 falls in the last year or 1 fall with injury or currently using an Ambulatory Assistive Device (Walker, Cane, Wheelchair, Crutches, etc.)? No PATIENT GENDER DATA: Assigned female at . status: : No status: NO. PATIENT RELEVANT IMPLANT DATA REVIEWED: Not Applicable PATIENT PRESENTS WITH AN IMPLANTABLE OR ATTACHED CUPOLA HOIST OPERATOR: No RADIOLOGY DEPARTMENT: General X-ray: Exam(s) Completed: ASPIRATION LEFT KNEE PERIPHERAL IV DATA: Not applicable SIGNED BY: WILLIAMS Brar) December 15, 2024 1:56 PM [facility] 12-01-2024 Telephone encounter Note An L knee injection order was entered instead of an aspiration order. Please place a IMAGING GUIDED KNEE ASPIRATION LEFT order. [facility] 12-01-2024 Miscellaneous Notes An L knee injection order was entered instead of an aspiration order. Please place a IMAGING GUIDED KNEE ASPIRATION LEFT order. documented in this encounter [facility] 11-07-2024 Note HNO ID: [id number] Author: JACIEL HURD MD Service: ? Author Type: Physician Type: Progress Notes Filed: 11/07/2024 17:03 Note Text: Orthopaedic Office Note: November 07, 2024 4:59 PM Bella Morillo 69 year old History: This is a very nice 69 year old I saw in Spring 2022 for L knee at that time, the history was: -This is a very nice 66-year-old woman with a complex history involving her left knee. She has had multiple revision operations. Her most recent surgery was with Dr. Reyes on November 072019. This was to a nonhinged constrained system, AESCULAP, with a Marlex mesh reconstruction of the extensor mechanism. -She was immobilized for 7 weeks in a cast and then placed in a hinged brace and allowed to start progressive motion. Her extensor mechanism is reruptured. She also has defect in the arthrotomy and subsequent large subcutaneous fluid collection. -She has a nickel allergy. -Her primary complaint of the fluid collection, the pain, and the loss of active extension. -Did have aspirate postoperatively with Miradia results: -Neg CRP -Neg alpha defensin -479 cells, 62% PMN At the time we talked about revision arthroplasty, retention of implants versus conversion to a hinge, extensor mechanism reconstruction and potential gastroc flap over arthrotomy. She decided to wait. In the interim, she has had fluid drained off her knee 1 time, we do not have the results of this. She is also had a cardiac ablation procedure. She is done with Eliquis soon. She is not having increasing pain, sharp pain, and difficulty ambulating. She remains with an extensor mechanism disruption. Subjective: See above Updated ROS: No changes aside from written above Updated Exam: Left lower Extremity Healed incision Smaller effusion Increased warmth No erythema 45 degree extensor lag Antalgic gait Neurovascular intact Updated Imaging: Revision arthroplasty in place Assessment and Plan: I had a long and honest discussion with Bella about her left knee. Options include limb salvage reconstruction attempt with repeat extensor mechanism reconstruction, conversion to nickel free hinge, versus retention of implants, patellectomy me, gastroc flap possible. The other option would be an above-knee amputation which I think would still be quite functional for her Before we proceed with decision making we should rule out infection definitively with ESR, CRP, and repeat aspiration which I have ordered She will see me when the above is completed I spent a total of approximately 35 minutes on the date of the service which included preparing to see the patient, [id number] patient care, completing clinical documentation, obtaining and/or reviewing separately obtained history, performing a medically appropriate examination, counseling and educating the patient/family/caregiver, ordering medications, tests, or procedures, communicating with other HCPs (not separately reported), independently interpreting results (not separately reported), communicating results to the patient/family/caregiver, and care coordination (not separately reported). Jaciel Hurd MD Orthopaedic Surgery [facility] 11-07-2024 History of Presen t illness Narrative Orthopaedic Office Note: November 07, 2024 4:59 PM Bella Morillo 69 year old History: This is a very nice 69 year old I saw in Spring 2022 for L knee at that time, the history was: -This is a very nice 66-year-old woman with a complex history involving her left knee. She has had multiple revision operations. Her most recent surgery was with Dr. Reyes on November 072019. This was to a nonhinged constrained system, AESCULAP, with a Marlex mesh reconstruction of the extensor mechanism. -She was immobilized for 7 weeks in a cast and then placed in a hinged brace and allowed to start progressive motion. Her extensor mechanism is reruptured. She also has defect in the arthrotomy and subsequent large subcutaneous fluid collection. -She has a nickel allergy. -Her primary complaint of the fluid collection, the pain, and the loss of active extension. -Did have aspirate postoperatively with synovasure results: -Neg CRP -Neg alpha defensin -479 cells, 62% PMN At the time we talked about revision arthroplasty, retention of implants versus conversion to a hinge, extensor mechanism reconstruction and potential gastroc flap over arthrotomy. She decided to wait. In the interim, she has had fluid drained off her knee 1 time, we do not have the results of this. She is also had a cardiac ablation procedure. She is done with Eliquis soon. She is not having increasing pain, sharp pain, and difficulty ambulating. She remains with an extensor mechanism disruption. Subjective: See above Updated ROS: No changes aside from written above Updated Exam: Left lower Extremity Healed incision Smaller effusion Increased warmth No erythema 45 degree extensor lag Antalgic gait Neurovascular intact Updated Imaging: Revision arthroplasty in place Assessment and Plan: I had a long and honest discussion with Bella about her left knee. Options include limb salvage reconstruction attempt with repeat extensor mechanism reconstruction, conversion to nickel free hinge, versus retention of implants, patellectomy me, gastroc flap possible. The other option would be an above-knee amputation which I think would still be quite functional for her Before we proceed with decision making we should rule out infection definitively with ESR, CRP, and repeat aspiration which I have ordered She will see me when the above is completed I spent a total of approximately 35 minutes on the date of the service which included preparing to see the patient, [id number] patient care, completing clinical documentation, obtaining and/or reviewing separately obtained history, performing a medically appropriate examination, counseling and educating the patient/family/caregiver, ordering medications, tests, or procedures, communicating with other HCPs (not separately reported), independently interpreting results (not separately reported), communicating results to the patient/family/caregiver, and care coordination (not separately reported). Jaciel Hurd MD Orthopaedic Surgery documented in this encounter [facility] 11-07-2024 History of Presen t illness Narrative Radiology Service Progress Note PATIENT NAME: Bella Morillo DATE OF SERVICE: November 07, 2024 TIME: 3:16 PM PATIENT IDENTITY VERIFICATION COMPLETED USING TWO (2) IDENTIFIERS: Name and Date of confirmed by patient verbally. FALL SCREENING: Has the patient had 2 falls in the last year or 1 fall with injury or currently using an Ambulatory Assistive Device (Walker, Cane, Wheelchair, Crutches, etc.)? No PATIENT GENDER DATA: Assigned female at . status: : No status: NO. PATIENT RELEVANT IMPLANT DATA REVIEWED: Not Applicable PATIENT PRESENTS WITH AN IMPLANTABLE OR ATTACHED CUPOLA HOIST OPERATOR: No RADIOLOGY DEPARTMENT: General X-ray: Exam(s) Completed: Lower Extremity X-Ray(s): Knee, AP / Lat / Merchant Left and Wt. Bearing PERIPHERAL IV DATA: Not applicable SIGNED BY: Daljit Mitchell November 07, 2024 3:16 PM documented in this encounter [facility] 11-07-2024 Note HNO ID: [id number] Author: JASMYN ZUNIGA Tech Service: Radiology Author Type: Supervisor [employer]ing [employer]erks Type: Progress Notes Filed: 11/07/2024 15:17 Note Text: Radiology Service Progress Note PATIENT NAME: Bella Morillo DATE OF SERVICE: November 07, 2024 TIME: 3:16 PM PATIENT IDENTITY VERIFICATION COMPLETED USING TWO (2) IDENTIFIERS: Name and Date of confirmed by patient verbally. FALL SCREENING: Has the patient had 2 falls in the last year or 1 fall with injury or currently using an Ambulatory Assistive Device (Walker, Cane, Wheelchair, Crutches, etc.)? No PATIENT GENDER DATA: Assigned female at . status: : No status: NO. PATIENT RELEVANT IMPLANT DATA REVIEWED: Not Applicable PATIENT PRESENTS WITH AN IMPLANTABLE OR ATTACHED CUPOLA HOIST OPERATOR: No RADIOLOGY DEPARTMENT: General X-ray: Exam(s) Completed: Lower Extremity X-Ray(s): Knee, AP / Lat / Merchant Left and Wt. Bearing PERIPHERAL IV DATA: Not applicable SIGNED BY: Daljit Mitchell November 07, 2024 3:16 PM [facility] 10-11-2024 Telephone encounter Note Post PVAI orders pended for signature [facility] 10-11-2024 Miscellaneous Notes Post PVAI orders pended for signature documented in this encounter [facility] 10-06-2024 Note HNO ID: [id number] Author: CHI ZAMORA MD Service: ? Author Type: Physician Type: Progress Notes Filed: 10/06/2024 11:38 Note Text: Heart and Vascular [facility] SECTION OF CARDIAC PACING and ELECTROPHYSIOLOGY OUTPATIENT VISIT DATE October 06, 2024 OUTPATIENT VISIT TYPE ESTABLISHED PRIMARY CARE PHYSICIAN: Sridhar Montero IV [address] [place] [address] HISTORY OF PRESENT ILLNESS: rior history, edited as needed: 69 year female with history of PAF, s/p catheter ablation approximately 25 years ago and repeat radiofrequency ablation at [facility] in 2012, has been maintained on low-dose propafenone for symptomatic PACs, QAC1-BQ7-UZIb score of 1 for gender only, not anticoagulated, developed an episode of atrial fibrillation in early 2018, converted spontaneously. That was the first symptomatic episode of atrial fibrillation in the last 6 years. Since then her propafenone was increased to 225 mg 3 times a day. She was continued on metoprolol as well. Her ablation was performed in April 2012. Achieving electrical isolation of the left superior and left pulmonary veins required extensive ablation of the region area between left atrial appendage and the veins. 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 Interval history: Bella presents for follow-up. She has been feeling well, palpitation, dyspnea, or dizziness. She remains on propafenone with no obvious complications. She is contemplating another orthopedic surgery. Recent 14-day event monitor demonstrated sinus rhythm with infrequent PACs and no sustained arrhythmia. Echocardiogram showed normal LV systolic function, no significant LVH or valve issues. ECG today shows sinus rhythm at 60 bpm with normal intervals. Interval history: Bella presents for follow-up. In the last couple months she had several episodes of atrial fibrillation lasting for hours. She experienced severe palpitation, subsequent fatigue, and some degree of dyspnea. Both episodes resolved spontaneously. She was seen in the ER once and stay home without the time. Since then she had several brief episodes for which she did not seek medical attention. She is not on anticoagulation. Her RQD4-IK4-MPKt score is currently 2, for gender and age. She was recently diagnosed with anemia and is planned for lower endoscopy. Remains on propafenone for PACs. ECG shows sinus bradycardia 58 beats minute. Interval history: Bella presents for follow-up. She underwent catheter ablation for atrial fibrillation and atrial flutter about 2 weeks ago, and it appears that this appointment was not scheduled prior to procedure. She reports feeling well, denies palpitation, chest comfort, or dizziness. She continues having skipped heartbeats for which she is maintained on propafenone. ECG shows sinus rhythm at 60 beats minute with normal intervals. Remains on oral anticoagulation. 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 metoprolol tartrate, short acting, (LOPRESSOR) 25 mg tablet TAKE 1 TABLET BY MOUTH TWICE A DAY liothyronine (CYTOMEL) 5 mcg tablet Take 1 tablet by mouth twice daily. cholecalciferol, Vitamin D3, (VITAMIN D3) 1,250 mcg (50,000 unit) cap capsule Take 50,000 Units by mouth once every month. levothyroxine (SYNTHROID) 112 mcg tablet Take 1 tablet by mouth once daily. Review of Systems Constitutional: Negative for fatigue. Respiratory: Negative for shortness of breath. Cardiovascular: Negative for chest pain and palpitations. Neurological: Negative for syncope. Psychiatric/Behavioral: The patient is not nervous/anxious. PHYSICAL EXAMINATION: BP 121/73 (BP Site: Right Arm, BP Position: Sitting, BP Cuff Size: Regular Adult) Pulse 64 Wt 150 lb (68 kg) SpO2 98% BMI 23.49 kg/m? BP w/Orthostatic Vitals Date and Time Orthostatic BP Orthostatic Pulse BP Pulse BP Position BP Site BP Cuff Size 10/06/24 1057 -- -- 121/73 64 Sitting Right Arm Regular Adult Physical Exam Constitutional: Appearance: Normal appearance. HENT: (more content not included)... [facility] 10-06-2024 History of Presen t illness Narrative Images from the original note were not included. Heart and Vascular [facility] SECTION OF CARDIAC PACING and ELECTROPHYSIOLOGY OUTPATIENT VISIT DATE October 06, 2024 OUTPATIENT VISIT TYPE ESTABLISHED PRIMARY CARE PHYSICIAN: Sridhar Montero IV [address] [place] [address] HISTORY OF PRESENT ILLNESS: rior history, edited as needed: 69 year female with history of PAF, s/p catheter ablation approximately 25 years ago and repeat radiofrequency ablation at [facility] in 2012, has been maintained on low-dose propafenone for symptomatic PACs, KKI0-LC7-EGHk score of 1 for gender only, not anticoagulated, developed an episode of atrial fibrillation in early 2018, converted spontaneously. That was the first symptomatic episode of atrial fibrillation in the last 6 years. Since then her propafenone was increased to 225 mg 3 times a day. She was continued on metoprolol as well. Her ablation was performed in April 2012. Achieving electrical isolation of the left superior and left pulmonary veins required extensive ablation of the region area between left atrial appendage and the veins. 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 Interval history: Bella presents for follow-up. She has been feeling well, palpitation, dyspnea, or dizziness. She remains on propafenone with no obvious complications. She is contemplating another orthopedic surgery. Recent 14-day event monitor demonstrated sinus rhythm with infrequent PACs and no sustained arrhythmia. Echocardiogram showed normal LV systolic function, no significant LVH or valve issues. ECG today shows sinus rhythm at 60 bpm with normal intervals. Interval history: Bella presents for follow-up. In the last couple months she had several episodes of atrial fibrillation lasting for hours. She experienced severe palpitation, subsequent fatigue, and some degree of dyspnea. Both episodes resolved spontaneously. She was seen in the ER once and stay home without the time. Since then she had several brief episodes for which she did not seek medical attention. She is not on anticoagulation. Her YCJ7-WJ3-MZXr score is currently 2, for gender and age. She was recently diagnosed with anemia and is planned for lower endoscopy. Remains on propafenone for PACs. ECG shows sinus bradycardia 58 beats minute. Interval history: Bella presents for follow-up. She underwent catheter ablation for atrial fibrillation and atrial flutter about 2 weeks ago, and it appears that this appointment was not scheduled prior to procedure. She reports feeling well, denies palpitation, chest comfort, or dizziness. She continues having skipped heartbeats for which she is maintained on propafenone. ECG shows sinus rhythm at 60 beats minute with normal intervals. Remains on oral anticoagulation. 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 metoprolol tartrate, short acting, (LOPRESSOR) 25 mg tablet TAKE 1 TABLET BY MOUTH TWICE A DAY liothyronine (CYTOMEL) 5 mcg tablet Take 1 tablet by mouth twice daily. cholecalciferol, Vitamin D3, (VITAMIN D3) 1,250 mcg (50,000 unit) cap capsule Take 50,000 Units by mouth once every month. levothyroxine (SYNTHROID) 112 mcg tablet Take 1 tablet by mouth once daily. Review of Systems Constitutional: Negative for fatigue. Respiratory: Negative for shortness of breath. Cardiovascular: Negative for chest pain and palpitations. Neurological: Negative for syncope. Psychiatric/Behavioral: The patient is not nervous/anxious. PHYSICAL EXAMINATION: BP 121/73 (BP Site: Right Arm, BP Position: Sitting, BP Cuff Size: Regular Adult) Pulse 64 Wt 150 lb (68 kg) SpO2 98% BMI 23.49 kg/m BP w/Orthostatic Vitals Date and Time Orthostatic BP Orthostatic Pulse BP Pulse BP Position BP Site BP Cuff Size 10/06/24 1057 -- -- 121/73 64 Sitting Right Arm Regular Adult Physical Exam Constitutional: Appearance: Normal appearance. HENT: Head: Normocephalic and atraumatic. Eyes: Conjunctiva/sclera: Conjunctivae normal. Pulmonary: Effort: Pulmonary effort is normal. No respiratory distress. Breath sounds: No stridor. Skin: General: Skin is dry. Coloration: Skin is not pale. Neurological: Mental Status: She is alert and oriented to person, place, and time. Psychiatric: Mood and Affect: Mood normal. I have personally reviewed the Electrocardiogram. Assessment PLAN AND RECOMMENDATIONS: ASSESSMENT/PLAN: 1. Paroxysmal atrial fibrillation (HCC) - ICD9: 427.31, ICD10: I48.0 (primary diagnosis) Status post catheter ablation, office visit in 3 months per routine - ECG B/O W INTERP (MED OFFICE) 2. PAC (premature atrial contraction) - ICD9: 427.61, ICD10: I49.1 Will discontinue propafenone, as it does not appear to be effective 3. long term care phlebotomist current use of anticoagulant - ICD9: V58.61, ICD10: Z79.01 - Risk/benefit ratio of continued oral anticoagulation remains favorable. Chi Zamora MD CONTACT INFORMATION: Chi Zamora MD documented in this encounter [facility] 10-01-2024 Hospital Discharg e instructions Patient Education 10/01/2024 13:27:25 Arthralgia Arthralgia Arthralgia is the term for pain in or around the joint. It is a symptom, not a disease. This pain may involve one or more joints. In some cases, the pain moves from joint to joint. There are many causes for joint pain. These include: Injury Osteoarthritis (wearing out of the joint surface) Gout (inflammation of the joint due to crystals in the joint fluid) Infection inside the joint Bursitis (inflammation of the fluid-filled sacs around the joint) Autoimmune disorders such as rheumatoid arthritis or lupus Tendonitis (inflammation of chords that attach muscle to bone) Home care Rest the involved joint(s) until your symptoms improve. You may be prescribed pain medicine. If none is prescribed, you may use acetaminophen or ibuprofen to control pain and inflammation. Follow-up care Follow up with your healthcare provider or as advised. When to seek medical advice Contact your healthcare provider right away if any of the following occurs: Pain, swelling, or redness of joint increases Pain worsens or recurs after a period of improvement Pain moves to other joints You cannot bear weight on the affected joint You cannot move the affected joint Joint appears deformed New rash appears Fever of 100.4 F (38 C) or higher, or as directed by your healthcare provider [phone] [employer]. [address] [place] [address]. All rights reserved. This information is not intended as a substitute for professional medical care. Always follow your healthcare professional's instructions. Follow Up Care 10/01/2024 11:05:41 With:follow up with orthopedics Address:Unknown When:2-4 days With:SRIDHAR MONTERO Address: [address] [place], [place] [id number]- [phone] Business (1) When:2-4 days With:Go to emergency room if symptoms worsen Address:Unknown When:2-4 days [facility] 10-01-2024 Note Discharge Instructions Thank you for allowing [facility] to assist you with your healthcare needs. The following is important discharge information regarding your hospital visit. Diagnosis from Today's Visit Left knee pain What to Do Next Instructions from Your Care Team Please follow-up with your orthopedist. Return to the emergency department for any acute worsening symptoms or concerns including development of any infectious symptoms such as fevers or chills or redness or warmth over the knee. No qualifying data available. Post Acute Orders No qualifying data available. You Need to Schedule the Following Appointments Follow Up with follow up with orthopedics When:Within 2-4 days Follow Up with SRIDHAR MONTERO When:Within 2-4 days Where:[address] [facility] [place] [phone] Business (1) Follow Up with Go to emergency room if symptoms worsen When:Within 2-4 days Allergies Bee Stings Anaphylactic reaction Dakins Full Strength Solution Skin irritation Metal unspecified Unknown Tape Rash codeine Headache cortisone Flush Medications Please ask your primary doctor or pharmacist before taking any other medication not listed, including over the counter drugs, herbal medications, vitamins and or supplements as they may interact with your home medications. What How Much When Why Instructions Last Dose Unchanged acetaminophen-hydrocodone ([place] 325- 5 mg oral tablet) 1 tab(s) by mouth Two (2) times a day Knee osteoarthritis Duration: 30 Days fill on or after 2024 Unchanged acetaminophen-hydrocodone ([place] 325- 5 mg oral tablet) 1 tab(s) by mouth Two (2) times a day Knee osteoarthritis Duration: 30 Days fill on or after 2024 Unchanged apixaban (Eliquis 5 mg oral tablet) Unchanged calcitriol (calcitriol 0.25 mcg oral capsule) 1 cap by mouth Wednesday / Wednesday / Wednesday Unchanged EPINEPHrine (EpiPen 2-Eze 0.3 mg injectable kit) 1 kit Intramuscular As Directed as needed for Allergic reaction Duration: 2 Doses dispense one 2 pack auto injector kit Unchanged ergocalciferol (Vitamin D2 1.25 mg (50,000 intl units) oral capsule) 1 cap by mouth Once a month Unchanged ibuprofen (Advil 200 mg oral tablet) See instructions tab(s) mg Oral q6hr Unchanged levothyroxine (Synthroid 112 mcg (0.112 mg) oral tablet) 1 tab(s) by mouth Once a day Unchanged liothyronine (liothyronine 25 mcg oral tablet) 1.5 tab(s) by mouth Every day Unchanged metoprolol (metoprolol tartrate 25 mg oral tablet) 1 tab(s) by mouth Two (2) times a day Unchanged pantoprazole (pantoprazole 40 mg oral enteric coated tablet) 1 tab(s) by mouth Once a day Duration: 90 Days Unchanged propafenone (propafenone 225 mg oral tablet) 1 tab(s) by mouth Every 8 hours Please take this list to your next doctor s visit. Bring all medications you take, including over the counter medications, herbals and other supplements with you to your doctor s visit. Patients and families are reminded to discard old lists and to update any records with all medication providers or retail pharmacies. Education Materials Arthralgia Arthralgia is the term for pain in or around the joint. It is a symptom, not a disease. This pain may involve one or more joints. In some cases, the pain moves from joint to joint. There are many causes for joint pain. These include: Injury Osteoarthritis (wearing out of the joint surface) Gout (inflammation of the joint due to crystals in the joint fluid) Infection inside the joint Bursitis (inflammation of the fluid-filled sacs around the joint) Autoimmune disorders such as rheumatoid arthritis or lupus Tendonitis (inflammation of chords that attach muscle to bone) Home care Rest the involved joint(s) until your symptoms improve. You may be prescribed pain medicine. If none is prescribed, you may use acetaminophen or ibuprofen to control pain and inflammation. Follow-up care Follow up with your healthcare provider or as advised. When to seek medical advice Contact your healthcare provider right away if any of the following occurs: Pain, swelling, or redness of joint increases Pain worsens or recurs after a period of improvement Pain moves to other joints You cannot bear weight on the affected joint You cannot move the affected joint Joint appears deformed New rash appears Fever of 100.4 F (38 C) or higher, or as directed by your healthcare provider [id number] [employer]. [address] [place] [address]. All rights reserved. This information is not intended as a substitute for professional medical care. Always follow your healthcare professional's instructions. Additional Information VACCINATE! IT SAVES LIVES! Members of the community who have not yet received the COVID-19 vaccine and would like to receive it can visit one of [facility] vaccine clinics. There are many vaccine clinic locations within the [facility]. For locations and available times, please visit [email or web address] [email or web address] It is important to note that some COVID mobile vaccine clinics are held outdoors and may be canceled in rainy or stormy conditions. To learn more about pediatric vaccinations (ages 5-11), we invite you to visit the [facility] webpage. [email or web address]-[email or web address] To learn more about the COVID-19 vaccine, we invite you to visit the CDC website for a list of frequently asked questions. https://www.cdc.gov/coronavirus/ 2019-ncov/vaccines/faq.html [facility] Patient Portal Access Instructions: Stay connected with your healthcare team and access your personal medical information anytime with the [facility] Patient Portal. If you would like a full copy of your medical records please contact the [facility] Medical Records Department Wednesday through Wednesday between 8a.m. and 4:30p.m. Please follow the directions below to access the portal: 1.Access the email account you provided upon registration to the [facility].2.Look for an invitation email from [facility].3.Open the email and access the invitation link: Accept Invitation to [facility]4.Fill in the required kwok to create your account. Sign into www.[employer] with your username and password that you created in the above steps to stay up to date. You can then view a summary of results, a summary of your visits, and the ability to download your summaries to your computer or send the information securely to a physician. Remember that your healthcare information is confidential, so carefully consider who you will allow to register on the [facility] Patient Portal for access to your information. You can also access the [facility] Patient Portal on the [employer] lilia. Simply click on Health Records under Health Data and then click on the [employer] logo. HOW TO SAFELY DISPOSE OF PRESCRIPTION MEDICATIONS Please use one of the following methods to safely dispose of your unused medications. 1.Use a drug disposal kit: the drug disposal pouch allows you to safely discard your old and unused drugs. Ask your nurse to give you one when you are discharged.2.Visit a local take-back location: Many local pharmacies and police departments have programs that collect old and unwanted prescription drugs. Call your local pharmacy or go to http://[employer].UserApp/2X7Tf0h to find one close to you.3.Make use of household items: Use cat litter or old coffee grounds to dispose medications if other options are not available. Mix your drugs with these household products, seal them in an airtight container and throw it into the garbage. Call [facility]: [phone] to be sure your drugs can be disposed of in this way. Some medicines may require a different approach.4.Never flush your medications down the toilet. IF YOU HAVE BEEN PRESCRIBED AN OPIOIDS FOR PAIN If you have been prescribed an opioid (such as hydrocodone, oxycodone or morphine), it is critical to understand the possible side effects and risks of opioid pain medications. Even when taken as directed, opioids can have several side effects including: Tolerance, meaning you might need to take more of a medication for the same pain relief. Nausea, vomiting and/or constipation. Sleepiness, dizziness, dry mouth, confusion, depression or itching. Physical dependence, meaning you have withdrawal symptoms when a medication is stopped ? this can develop within a few days. KNOW YOUR RESPONSIBILITIES It is important to know exactly how much and how often to take the opioid pain medications you are prescribed. Never take opioids in higher amounts or more often than prescribed. Do not combine opioids with alcohol or other drugs that cause drowsiness, such as benzodiazepines, also known as benzos, including diazepam and alprazolam, muscle relaxants or sleep aids. Never sell or share prescription opioids. This is illegal. Store opioids in a secure place and out of reach of others (including children, family, friends and visitors). The last page(s) of this document has been signed and retained as a CHART COPY Signatures Patient Education Materials Arthralgia Medication Leaflets My discharge plan and instructions have been reviewed and explained to me and IYISEL CHERYL A understand my current condition and have read and understand these discharge instructions. I have received a written copy of the plan/instructions. If I have questions, I am aware that I should contact my doctor. Patient/Broiler Chef Or Cook Signature: Date/Time: Relationship to Patient: Witness Name/Signature: Date/Time: [facility] 10-01-2024 Note Exam Date Time Procedure Performing Provider Status 10/01/24 12:17 PM XR Femur Minimum 2 Views Left YURIDIA YANEZ MD; Auth (Verified) [id number] ORIGINAL EXAMINATION: 4 XRAY VIEWS OF THE LEFT FEMUR 10/01/2024 12:17 pm COMPARISON: None. HISTORY: ORDERING SYSTEM PROVIDED HISTORY: Reason for Exam: pain FINDINGS: Bone demineralization. Femoroacetabular joint is maintained. 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 There are multiple punctate foreign bodies in the soft tissues which may be related to postsurgical metallic debris. Knee joint effusion with swelling over the anterior knee. No evidence of periprosthetic lucency or fracture. IMPRESSION: 1. 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 No evidence of periprosthetic lucency or fracture. 2. Knee joint effusion with swelling over the anterior knee. If there is clinical concern for infection recommend correlation with aspiration. Interpreted by: Yuridia Yanez Preliminary Report By: Yuridia Yanez Electronically signed By Yuridia Yanez Dictated Date: 10/01/2024 12:34:49 PM Prelim Date: 10/01/2024 12:36:21 PM Sign Date: 10/01/2024 12:36:21 PM Ordering Provider: MARGARITA MIDDLETON [facility]06-04-2025 Telephone encounter Note* Telephone Encounter - Archana Carrion LPN - 09/27/2024 10:07 AM EDT Last seen in office on 07/20/24. Follow up scheduled for 10/06/24. Patient's request for medication is as follows: Requested Prescriptions Pending Prescriptions Disp Refills Propafenone HCl (RYTHMOL) 225 mg tablet 270 tablet 3 Sig: Take 1 tablet by mouth every 8 hours. Prescription(s) as above. Please process accordingly. Archana Carrion LPN [facility]06-04-2025 Miscellaneous Notes* Telephone Encounter - Archana Carrion LPN - 09/27/2024 10:07 AM EDT Last seen in office on 07/20/24. Follow up scheduled for 10/06/24. Patient's request for medication is as follows: Requested Prescriptions Pending Prescriptions Disp Refills Propafenone HCl (RYTHMOL) 225 mg tablet 270 tablet 3 Sig: Take 1 tablet by mouth every 8 hours. Prescription(s) as above. Please process accordingly. Archana Carrion LPN [facility] Tele[facility] encounter Note * Telephone Encounter - Tarah Goldsmith MD - 09/23/2024 10:01 AM EDT Patient discharged post PFA Demar and Afib Needs post discharge monitoring echo and follow ups to be placed Tarah Goldsmith MD [facility]05-31-2025 Miscellaneous Notes* Telephone Encounter - Tarah Goldsmith MD - 09/23/2024 10:01 AM EDT Patient discharged post PFA Demar and Afib Needs post discharge monitoring echo and follow ups to be placed Tarah Goldsmith MD [facility] NoteHNO ID: [id number] Author: LILY MARIA PA-C Service: Neurology ICU Author Type: Physician Box Annealer Type: Progress Notes Filed: 09/23/2024 07:17 Note Text: Attestation signed by Rossana Sepulveda DO, PhD at 09/23/2024 3:37 PM (Updated) .bbTHE NEURO ICU MANAGEMENT OF THIS PATIENT WAS DISCUSSED WITH THE NICU TEAM I have reviewed the progress note obtained and documented by the advanced practice provider . I have personally seen and examined the patient and discussed their management with the LILIA. I reviewed the LILIA note and agree with the documented findings and plan of care. I have repeated the examination and confirm the findings except as documented. PATIENT PROBLEMS I REVIEWED, REVISED AND/OR INITIATED: The care of this patient required my full attention and direct personal management of: Principal Problem: Atrial fibrillation (HCC) Active Problems: Hypothyroidism Resolved Problems: Unresponsive episode Acute encephalopathy Leukocytosis Complication of anesthesia ==== STAFF COORDINATION OF CRITICAL CARE [facility] Staff Physician note of personal involvement in Care The patient is critically ill because of imminent risk of and continues to require intensive support and observation. This patient has a high probability of sudden, clinically significant deterioration, which requires the highest level of physician preparedness to intervene urgently. I managed/supervized life or organ supporting interventions that required frequent physician assessment. I devoted my full attention to the direct care of this patient for the amount of time indicated below. Time I spent with family or surrogate(s) is included only if the patient was incapable of providing the necessary information or participating in medical decision making. Time devoted to teaching or to any procedures I billed separately is not included. CRITICAL CARE: I personally spent 60 minutes of critical care time involved in the care of this patient. ==== PLAN, IMPRESSION AND ACTION(S) TAKEN Please see the documented [id number] plan in the updated problem list. Plan of care discussed with: . Pt has returned to neurological baseline. Endorses odd waking form anesthesia in the past R/o Structural intracranial concern Unlikely that event was due to sz. Sudden return to baseline with no confusion or loss of time. AOx4 with complete recall of events during non responsive episode was able to hear conversations and recall- atypical for sz ( Son and patient inquired about DC EEG following return to baseline). - Pt without metabolic derangement, trop elevated as expected post procedure ( work up as per EP/cards), EKG stable, afebrile, CXR unremarkable Pt up to chair this am and using phone appropriately Event unlikely due to acute intracranial process, unclear etiology of unresponsive episode. Have advised her to have discussion with anesthesia in the future for procedures. Patient should visit PCP early next week ( communicated with primary and attempted to call the patient x3 no answer) Refrain form driving until PCP eval Return to hospital for eval if and neurological or sz like activity Appreciate recs from Primary no current ICU need may transfer to floor will discuss with EP. Rossana Sepulveda DO, PhD Staff, Neurointensive Care [facility]rological [facility] Date of Service: 09/23/2024 Time of Service: 9:32 AM This is an electronically created document. If printed, please do not remove from the chart or modify printed copy. SERVICE DATE: 09/23/2024 SERVICE TIME: 5:09 AM NEURO ICU PROGRESS NOTE DATE OF ADMISSION: 09/22/2024 Subjective Hospital Course: 09/23: No acute events overnight. Endorsing mild BURRELL this AM. Patient back to baseline within a few hours post operatively. MRI unrevealing. AM labs reviewed. Objective BP 109/50 Pulse 78 Temp 37.3 ?C (99.2 ?F) (Oral) Resp 15 Ht 170.2 cm (5' 7) Wt 64.4 kg (141 lb 15.6 oz) SpO2 95% BMI 22.24 kg/m? Weight change: Neuro: GCS: Eyes: 4. Spontaneous Verbal: 5: Oriented Motor: 6: Obeys Motor commands Total: 15 CRANIAL NERVES: Normal mood and affect. CNII-XII grossly intact. MOTOR STRENGTH: Upper and lower extremity 5/5 bilaterally SENSATION: Intact light touch CV: RRR Pulm: CTA bilaterally, unlabored on RA GI/: Abdomen soft, non tender Skin/Extremities: Edema- No Peripheral pulses- Present all extremities Diagnostic tests reviewed for today's visit: Most recent labs and imaging results. Personally reviewed Lines, Drains, and Airways Line Duration Peripheral 09/22/24 1414 [facility] Right Hand 20 Gauge <1 day Peripheral 09/22/24 1502 Left Antecubital 20 Gauge <1 day Drain Duration External Collection Device (more content not included)...[facility]05-30-2025 NoteHNO ID: [id number] Author: ROSSANA SEPULVEDA DO, PhD Service: Neurology ICU Author Type: Physician Type: Plan of Care Filed: 09/22/2024 19:22 Note Text: Plan of care Patient presents from PACU to being poorly responsive. CTH and CTA without anatomical abnormality. Patient remains poorly responsive GCS 9 currently says ow with manipulation of her IV are raised head raise and eye open briefly. Fluttering of eye lids Poorly responsive with nox stim to bilateral UE but maintain tone with arm raised. Neuro examination is atypica and non focal, comforting that vessel imaging is unremarkable however the patient is Mrs 0 prior to presentation. Discussed with anesthesia at bedside. Currently protecting airway, Discussed with Son current status he is on his way. Code status confirmed. Will perform stat MRI brain Update: MRI Brain is without acute intracranial pathology On Sons arrival the patient visible was crying at the sound of his voice voice. Smiled with his comments appropriately Now wide awake and responding to nursing appropriately trop pending EKG repeat pending. OK for eliquis this pm Neuro check q 4 Plan [facility] NoteHNO ID: [id number] Author: SYDNIE COX, SHAWN Service: Nursing Author Type: Registered Nurse Type: Progress Notes Filed: 09/22/2024 16:43 Note Text: Report given to rapid response RN at pt moved to 3202 by team.[facility]05-30-2025 NoteHNO ID: [id number] Author: SYDNIE COX, SHAWN Service: Nursing Author Type: Registered Nurse Type: Progress Notes Filed: 09/22/2024 16:48 Note Text: Gag reflex checked 0 gag noted. Still no response to painful stimuli.[facility]05-30-2025 NoteHNO ID: [id number] Author: SYDNIE COX, RN Service: Nursing Author Type: Registered Nurse Type: Progress Notes Filed: 09/22/2024 16:35 Note Text: Pt returned to PACU spot 23[facility] NoteHNO ID: [id number] Author: SYDNIE COX, RN Service: Nursing Author Type: Registered Nurse Type: Progress Notes Filed: 09/22/2024 16:17 Note Text: Pt to CT scanner with stroke teamPen[facility]05-30-2025 NoteHNO ID: [id number] Author: SYDNIE COX, RN Service: Nursing Author Type: Registered Nurse Type: Progress Notes Filed: 09/22/2024 16:14 Note Text: SPECIAL EFFECTS MAKEUP ARTIST at BS Assessing Pt. And on phone with Stroke Neurologist. New IV placed #20 in RH placed.[facility]05-[facility]25 NoteHNO ID: [id number] Author: SYDNIE COX, SHAWN Service: Nursing Author Type: Registered Nurse Type: Progress Notes Filed: 09/22/2024 16:10 Note Text: Stroke team to [facility]05-30-2025 NoteHNO ID: [id number] Author: SYDNIE COX, SHAWN Service: Nursing Author Type: Registered Nurse Type: Progress Notes Filed: 09/22/2024 16:26 Note Text: FSBS checked 106[facility] NoteHNO ID: [id number] Author: SYDNIE COX, SHAWN Service: Nursing Author Type: Registered Nurse Type: Progress Notes Filed: 09/22/2024 16:18 Note Text: BS ABG with POC testing being completed at this time from LW. No response from pt with ABG stick. Narcan and Flumazenil ordered.[facility] 09-22-2024 NoteHNO ID: [id number] Author: SYDNIE COX, RN Service: Nursing Author Type: Registered Nurse Type: Progress Notes Filed: 09/22/2024 15:52 Note Text: Dr. Montague to BS to Assess pt.[facility]05-30-2025 NoteHNO ID: [id number] Author: SYDNIE COX, RN Service: Nursing Author Type: Registered Nurse Type: Progress Notes Filed: 09/22/2024 16:59 Note Text: Pt not responding to sternal rub and to questions pt not moving extemities no response to nail bed pressure, Dr. Montague called and notified. Pt noted to have decerebrate posturing, roving eye movement with pupil checks and furrowed brow. That is the only response from pt.[facility]05-30-2025 NoteHNO ID: [id number] Author: CHRISTINA ROSEN APRN.CRNA Service: Anesthesiology Author Type: Nurse Wire Wheeler Type: Anesthesia Procedure Notes Filed: 09/22/2024 12:54 Note Text: ANESTHESIOLOGY PROCEDURE NOTE Airway General Information Procedure Start Time/Medication Administration: 09/22/2024 12:47 PM Procedure End Time: 09/22/2024 12:47 PM Patient location during procedure: OR Timeout Performed Pre-procedure: timeout performed Consent Obtained: Yes Patient identity confirmed: arm band and patient Staffing GARAGE HELPER: Christina Rosen APRN.GARAGE HELPER Performed by: LASHANDA Indications and Patient Condition Indications for airway management: anesthesia Preoxygenated: yes anesthesia circuit Patient position: sniffing Method: asleep Difficult Mask: No Final Airway Details Final airway type: endotracheal airway Final Endotracheal Airway: ETT Cuffed: yes Successful intubation technique: direct laryngoscopy Devices used: intubating stylet Endotracheal tube insertion site: oral Blade: Ebony Blade size: #4 ETT size (mm): 7.5 Measured from: lips Measurement (cm): 22 Placement verified by: chest auscultation and capnometry Cormack-Lehane Classification: grade I - full view of glottis Number of attempts at approach: 1 SIGNATURE: Christina Rosen APRN.GARAGE HELPER PATIENT NAME: Bella Morillo DATE: September 22, 2024 TIME: 12:54 PM [id number] Telephone encounter Note* Telephone Encounter - Lynnette Welch RN - 09/19/2024 12:56 PM EDT Called Bella Morillo to relay Twyla's message, recommendations, and plan. Pt verbalized understanding and agreeable to start Eliquis today, avoid NSAIDS, and the planned timeline for continuing uninterrupted OAC post procedure. Additionally she understands she may also need BRYAN prior to ablation if she is found to be afib dayof procedure. Lynnette Welch RN [facility]05-27-2025 Miscellaneous Notes* Telephone Encounter - Lynnette Welch RN - 09/19/2024 12:56 PM EDT Called Bella Morillo to relay Twyla's message, recommendations, and plan. Pt verbalized understanding and agreeable to start Eliquis today, avoid NSAIDS, and the planned timeline for continuing uninterrupted OAC post procedure. Additionally she understands she may also need BRYAN prior to ablation if she is found to be afib dayof procedure. Lynnette Welch RN * Addendum Note - Lilia Martinez APRN.CNP - 09/19/2024 12:44 PM EDTAddended by: LILIA MARTINEZ on: 09/19/2024 12:44 PM Modules accepted: Orders * Telephone Encounter - Lilia Martinez APRN.CNP - 09/19/2024 12:36 PM EDT Will send Eliquis 5 mg twice daily (about every 12 hours) to the [facility] pharmacy listed on her chart. She should avoid NSAIDS while taking Eliquis to decrease risk of bleeding. She should start the medication today and if she presents for ablation in sinus rhythm will proceed, if she is in atrial fibrillation, will need BRYAN prior to ablation. She will then continue Eliquis uninterrupted for at least3 months post ablation. Thank you. Lilia Martinez APRN.CNP * Telephone Encounter - Lynnette Welch RN - 09/19/2024 11:53 AM EDT Bella Morillo called back and is agreeable to date. Relayed Margarita's instructions and she voiced understanding. Pt's name has been added to ramirez procedure board. Pt reports she is not on OAC. Was intention to start pre-procedure? Lynnette Welch, RN * Telephone Encounter - Margarita Rangel - 09/19/2024 11:34 AM EDT Called to offer patient 09/22 date for ablation. If patient does not call back by 3pm on 09/19, patient will be offered new date when available Patient is scheduled for a PVI Ablation on 09/[address] Zamora. The hospital will call the day before between 2-5pm with your arrival time. You should not eat or drink after midnight the day before the procedure. You will need a lead driver when released from the hospital and you will stay overnight for observation. You should continue to take medications as prescribed the morning of the procedure with just a sip of water unless otherwise instructed. H&P morning of Left message for Bella Morillo to call back and confirm date & instructions Margarita Rangel Office use: [facility] Note* Addendum Note - Lilia Martinez APRN.CNP - 09/19/2024 12:44 PM EDTAddended by: LILIA MARTINEZ on: 09/19/2024 12:44 PM Modules accepted: Orders [facility]05-27-2025 Telephone encounter Note* Telephone Encounter - Lilia Martinez APRN.CNP - 09/19/2024 12:36 PM EDT Will send Eliquis 5 mg twice daily (about every 12 hours) to the [facility] pharmacy listed on her chart. She should avoid NSAIDS while taking Eliquis to decrease risk of bleeding. She should start the medication today and if she presents for ablation in sinus rhythm will proceed, if she is in atrial fibrillation, will need BRYAN prior to ablation. She will then continue Eliquis uninterrupted for at least3 months post ablation. Thank you. Lilia Martinez APRN.WAITER/WAITRESS TOURIST CLASS [facility]05-27-2025 Telephone encounter Note* Telephone Encounter - Lynnette Welch RN - 09/19/2024 11:53 AM EDT Bella Morillo called back and is agreeable to date. Relayed Margarita's instructions and she voiced understanding. Pt's name has been added to ramirez procedure board. Pt reports she is not on OAC. Was intention to start pre-procedure? Lynnette Welch RN [facility]05-27-2025 Telephone encounter Note* Telephone Encounter - Margarita Rangel - 09/19/2024 11:34 AM EDT Called to offer patient 09/22 date for ablation. If patient does not call back by 3pm on 09/19, patient will be offered new date when available Patient is scheduled for a PVI Ablation on 09/[address] Zamora. The hospital will call the day before between 2-5pm with your arrival time. You should not eat or drink after midnight the day before the procedure. You will need a lead driver when released from the hospital and you will stay overnight for observation. You should continue to take medications as prescribed the morning of the procedure with just a sip of water unless otherwise instructed. H&P morning of Left message for Bella A Liyajannie to call back and confirm date & instructions Margarita Rangel Office use: [facility]04-11-2025 Note* Addendum Note - Chi Zamora MD - 08/04/2024 2:06 PM EDTAddended by: CHI ZAMORA on: 08/04/2024 02:06 PM Modules accepted: Orders [facility]04-11-2025 Miscellaneous Notes* Addendum Note - Chi Zamora MD - 08/04/2024 2:06 PM EDTAddended by: CHI ZAMORA on: 08/04/2024 02:06 PM Modules accepted: Orders * Telephone Encounter - Chi Zamora MD - 08/04/2024 2:04 PM EDT OK, will arrange. Chi Zamora MD * Telephone Encounter - Jasmyn Wood LPN - 08/04/2024 1:13 PM EDT Bella Luciano Morillo called in and states colonoscopy has been completed. She would like to schedule ablation at this time. Jasmyn Wood LPN documented in this encounterNor[facility]04-11-2025 Telephone encounter Note * Telephone Encounter - Chi Zamora MD - 08/04/2024 2:04 PM EDT OK, will arrange. Chi Zamora MD [facility]04-11-2025 Telephone encounter Note* Telephone Encounter - Jasmyn Wood LPN - 08/04/2024 1:13 PM EDT Bella Moirllo called in and states colonoscopy has been completed. She would like to schedule ablation at this time. Jasmyn Wood LPN [facility]04-10-2025 Note* Discharge Instr - Nursing - Camelia Clarke RN - 08/03/2024 12:22 PM EDT The patient received a copy of Colonoscopy discharge instructions that contain information for how to contact the physician who performed the procedure and when to seek medical care. [facility]04-10-2025 Miscellaneous Notes* Discharge Instr - Nursing - Camelia Clarke RN - 08/03/2024 12:22 PM EDT The patient received a copy of Colonoscopy discharge instructions that contain information for how to contact the physician who performed the procedure and when to seek medical care. documented in this encounterNorwalk [facility] Hospital04-10-2025 History and physical note * Satish Flynn MD - 08/03/2024 12:15 PM EDT HPI: Bella Morillo is a 69 year old female with PMHx of afib with PACs, jasen's, osteoporosis, knee replacement, CKD, and anemia. She presents as a referral from her PCP, Dr. Montero for DANITA withinability to tolerate PO iron. Ms. Morillo reports fatigue. Denies any current SOB, CP. She does have a hx of afib with PACs. Not currently on anticoagulation. She denies current overt s/s of bleeding. UTI in November with hematuria.No issues since then. Denies any new aches or pains. She has chronic knee pain 2/2 several knee replacements. She has met with ortho and was given several options for further treatment, including monitoring which she has chosen. Constant bowel issues. Seeing Dr. Hightower at the end of the month for a colonscopy. Last scope 2 years ago. No concerns. Had an EGD several years ago. Started PO iron BID in September, somewhat intermittent. Stopped taking about 2 weeks ago due to significant constipation and occasional upset stomach. Taking hungarian perfecto as needed. Currently trying to get thyroid under better control. Fluctuating TSH. Endorses dry skin, hair loss. Does not eat red meat, does not eat processed meats. Blood transfusion at time of knee surgery, (maybe 4 or five total) Fiber gummies, occasional tums, jose back and body occasionally. No regular NSAID or antiacid use. Mother of colon ca dx age of 73, 6 weeks later. 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 Interval Hx: Pt presents today for follow up and lab review after receiving IV iron. Counts responded well Tolerated IV iron well overall aside from BURRELL. Notes BURRELL following second infusion lasted about a dayresolved. No other issues. Saw Dr. Hightower, states no indication for scope. Performed EGD. Last scope was > 4 years ago, [facility] [place] Dr. Berumen. Reviewed would recommend repeat screening colonoscopy with a new DANITA diagnosis. Started on [place] by Dr Montero for knee pain. Denies bleeding or bruising. No changes in bowel or bladder habits. PAST MEDICAL HISTORY 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 Knee pain Macular degeneration Migraine with aura Osteopenia 2010 PAC (premature atrial contraction) Palpitations Pituitary disorder (HCC) prolactin elevation on reglan Postmenopausal osteoporosis 2015 Thyrotoxicosis without mention of goiter or other cause Uterine fibroid Vitamin D deficiency PAST SURGICAL HISTORY PAST SURGICAL HISTORY Procedure Laterality Date AFIB ABLATION/PULM VEIN ISOLATION 2005 pulmonary vein ablation for A fib AFIB ABLATION/PULM VEIN ISOLATION 2014 ARTHROTOMY W/MENISCUS REPAIR KNEE Left 1966 Open knee reconstruction ARTHRP KNE CONDYLE&PLATU MEDIAL&LAT COMPARTMENTS Left x2 ARTHRP KNE CONDYLE&PLATU MEDIAL&LAT COMPARTMENTS Left 11/08/2019 revision, Dr. Reyes COLONOSCOPY 2009 due in 5 years COLONOSCOPY 2020 wnl due in 3 years FINGER SURGERY HX Right trigger finger KNEE SURGERY HX Left x6 KNEE SURGERY HX Left 1997 LEG SURGERY HX femur fracture SPINE SURGERY HX 2012 TOTAL KNEE REPLACEMENT Right 2020 CURRENT MEDICATIONS Current Outpatient Medications Medication Sig Dispense Refill HYDROcodone-acetaminophen (NORCO) 5-325 mg per tablet Take 1 tablet by mouth every 6 hours as needed. TAKE 1 TABLET BY MOUTH EVERY 12 HOURS NEEDED FOR PAIN metoprolol tartrate, short acting, (LOPRESSOR) 25 mg tablet TAKE 1 TABLET BY MOUTH TWICE A DAY 180 tablet 3 Propafenone HCl (RYTHMOL) 225 mg tablet TAKE 1 TABLET EVERY 8 HOURS 270 tablet 3 liothyronine (CYTOMEL) 25 mcg tablet Take 25 mcg by mouth once daily. calcitriol (ROCALTROL) 0.25 mcg capsule TAKE 1 PILL BY MOUTH WEDNESDAY, WEDNESDAY, WEDNESDAY inulin (FIBER GUMMIES) 2 gram chew Take 1 Each by mouth as needed. pantoprazole DR (PROTONIX) 40 mg tablet Take 40 mg by mouth once daily. liothyronine (CYTOMEL) 5 mcg tablet Take 1 tablet by mouth twice daily. 180 tablet 0 vit A/vit C/vit E/zinc/copper (ICAPS AREDS ORAL) Take 1 tablet by mouth two times a day. cholecalciferol, Vitamin D3, (VITAMIN D3) 1,250 mcg (50,000 unit) cap capsule Take 50,000 Units by mouth once every month. levothyroxine (SYNTHROID) 112 mcg tablet Take 1 tablet by mouth once daily. 90 tablet 3 EPINEPHrine (EPIPEN) 0.3 mg/0.3 mL auto-injector Inject 0.3 mg intramuscularly as needed. multivitamin tablet Take 1 tablet by mouth once daily. cephALEXin (KEFLEX) 250 mg capsule Take 250 mg by mouth two times a day. (Patient not taking: Reported on 05/08/2024) aspirin, enteric coated (ASPIRIN, ENTERIC COATED) 81 mg EC tablet Take 81 mg by mouth once daily. (Patient not taking: Reported on 05/08/2024) ibuprofen-acetaminophen (ADVIL DUAL ACTION) 125-250 mg tab Take 2 tablets by mouth twice daily as needed. (Patient not taking: Reported on 05/08/2024) No current facility-administered medications for this visit. ALLERGIES ALLERGIES Allergen Reactions Bees Anaphylaxis Codeine Intolerance migraines Adhesive Tape (Marianne* Rash, Itching Adhesive Tape-Silic* Unknown Bee Sting Anaphylaxis Bee Venom Protein (* Anaphylaxis Cortisone Other: See Comments Turns red Dakin's [Sodium Hyp* Unknown Nickel Unknown Vanadium Unknown FAMILY HISTORY FAMILY HISTORY Problem Relation Age of Onset other (stomach cancer) Mother Colon Cancer Mother Hypothyroidism Mother Melanoma Mother 76 Arrythmias Mother Prostate Cancer Father Coronary Artery Disease Father Hypertension Father Hyperlipidemia Father Heart disease Father cardiac murmur Diabetes Maternal Grandmother Heart disease Paternal Grandmother quadruple bypass and of a heart attack at age 75 Breast Cancer Maternal Aunt 42 Lung Cancer Maternal Aunt Graves Disease Other SOCIAL HISTORY Social History Tobacco Use Smoking status: Former Current packs/day: 0.00 Average packs/day: 0.5 packs/day for 10.0 years (5.0 ttl pk-yrs) Types: Cigarettes Start date: 08/17/1977 Quit date: 08/18/1987 Years since quittin.7 Smokeless tobacco: Never Vaping Use Vaping status: Never Used Substance Use Topics Alcohol use: Yes Alcohol/week: 3.0 - 4.0 standard drinks of alcohol Types: 3 - 4 Glasses of Wine (5oz) per week Comment: socially Drug use: Yes Types: Marijuana Review of Systems: Negative except as noted in HPI reviewed 05/08/2024 Physical Exam: BP 112/67 Pulse 63 Temp (Src) 97.8 (Temporal) Wt 158 lb 8 oz (71.9kg) SpO2 98% General: Age-appropriate well developed. Appears well. HEENT: Normocephalic, no sclera icterus, external ears normal, oral cavity clear. Neck: Supple, no thyroid nodules, no JVD. Chest: Clear bilaterally, no wheezes, not labored. Heart: Normal S1 and S2, no abnormal sounds Abdomen: Soft, nontender, nondistended, bowel sounds present, no organomegaly or mass, no rigidity. Extremities: No cyanosis, clubbing, gross deformities. L knee edema s/p 4 knee surgeries, stable Neurological: Cranial nerves II through XII are intact bilaterally, no focal deficits. Skin: Warm and dry with no rashes or ulcerations. Nodes: No palpable adenopathy in the cervical, supraclavicular, infraclavicular, or axillary regions. Hematologic: no bruising or petechiae. Psychiatric: Alert and oriented x3. Emotional well-being assessment was performed. Lab Results Component Value Date WBC 5.88 05/04/2024 HB 12.5 05/04/2024 MCV 89.9 05/04/2024 PLT 235 05/04/2024 Lab Results Component Value Date NA 140 02/01/2024 K 4.2 02/01/2024 CO2 24 02/01/2024 BUN 17 02/01/2024 CREAT 0.93 02/01/2024 TBILI 0.4 02/01/2024 TPROT 7.3 02/01/2024 ALB 4.2 02/01/2024 ALKPHOS 44 02/01/2024 ALT 10 02/01/2024 AST 17 02/01/2024 Assessment and Plan: Ms. Morillo is a pleasant 68 year old woman presenting as new iron deficiency anemia consult Anemia, iron deficiency, Improved - reviewed potential causes and treatment for anemia in detail with patient. - pt with hx of jasen's - lack of dietary intake, malabsorption - no overt s/s of bleeding - met with Dr. Higthower for scopes, only had EGD performed. She states that he did not feel colonoscopy was necessary (no records available) - does note family hx of colorectal ca. - with a new onset DANITA would still suggest colonoscopy for completeness - was started on PO iron by PCP in September. Unable to tolerate due to GI upset, severe constipation. - received IV iron sucrose 200mg x 5 last dose on 03/02/24, tolerated well aside from BURRELL. - CBC, and iron studies improved Plan: - recommend screening colonoscopy - continue to monitor CBC, ferritin, iron studies every 3 months. - OV in 1 year Advised to call with any questions or concerns. Lindsey Zuniga APRN.WAITER/WAITRESS TOURIST CLASS UPDATED HISTORY AND PHYSICAL EXAMINATION SERVICE DATE: 08/03/2024 SERVICE TIME: 11:11 AM PHYSICAL EXAM MUST BE COMPLETED ON ADMISSION The History and Physical (completed in the past 30 days) has been reviewed and the patient has beenexamined. The contents accurately reflect the patient's condition with the following additions or revisions since the H&P was completed. Examination indicates no changes. This H&P can be found in the attached. SIGNATURE: Satish Flynn III, MD PATIENT NAME: Bella Morillo DATE: August 03, 2024 TIME: 11:11 AM [facility]04-10-2025 History and physical note* Satish Flynn MD - 08/03/2024 12:15 PM EDT HPI: Bella Morillo is a 69 year old female with PMHx of afib with PACs, jasen's, osteoporosis, knee replacement, CKD, and anemia. She presents as a referral from her PCP, Dr. Montero for DANITA withinability to tolerate PO iron. Ms. Morillo reports fatigue. Denies any current SOB, CP. She does have a hx of afib with PACs. Not currently on anticoagulation. She denies current overt s/s of bleeding. UTI in November with hematuria.No issues since then. Denies any new aches or pains. She has chronic knee pain 2/2 several knee replacements. She has met with ortho and was given several options for further treatment, including monitoring which she has chosen. Constant bowel issues. Seeing Dr. Hightower at the end of the month for a colonscopy. Last scope 2 years ago. No concerns. Had an EGD several years ago. Started PO iron BID in September, somewhat intermittent. Stopped taking about 2 weeks ago due to significant constipation and occasional upset stomach. Taking hungarian perfecto as needed. Currently trying to get thyroid under better control. Fluctuating TSH. Endorses dry skin, hair loss. Does not eat red meat, does not eat processed meats. Blood transfusion at time of knee surgery, (maybe 4 or five total) Fiber gummies, occasional tums, jose back and body occasionally. No regular NSAID or antiacid use. Mother of colon ca dx age of 73, 6 weeks later. 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 Interval Hx: Pt presents today for follow up and lab review after receiving IV iron. Counts responded well Tolerated IV iron well overall aside from BURRELL. Notes BURRELL following second infusion lasted about a dayresolved. No other issues. Saw Dr. Hightower, states no indication for scope. Performed EGD. Last scope was > 4 years ago, [facility] [place] Dr. Berumen. Reviewed would recommend repeat screening colonoscopy with a new DANITA diagnosis. Started on [place] by Dr Montero for knee pain. Denies bleeding or bruising. No changes in bowel or bladder habits. PAST MEDICAL HISTORY PAST MEDICAL HISTORY Diagnosis Date Anemia Atrial fibrillation (HCC) Atrophic vaginitis Dyspareunia in female Family history of breast cancer Family history of colon cancer offered Colaris Jona; pt needs to complete genetic counseling Family history of malignant melanoma Femur fracture (HCC) trip/fall from standing height High risk for hip fracture 05/2019 FRAX Hip 3% 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 Knee pain Macular degeneration Migraine with aura Osteopenia 2010 PAC (premature atrial contraction) Palpitations Pituitary disorder (HCC) prolactin elevation on reglan Postmenopausal osteoporosis 2015 Thyrotoxicosis without mention of goiter or other cause Uterine fibroid Vitamin D deficiency PAST SURGICAL HISTORY PAST SURGICAL HISTORY Procedure Laterality Date AFIB ABLATION/PULM VEIN ISOLATION 2006 pulmonary vein ablation for A fib AFIB ABLATION/PULM VEIN ISOLATION 2014 ARTHROTOMY W/MENISCUS REPAIR KNEE Left 1966 Open knee reconstruction ARTHRP KNE CONDYLE&PLATU MEDIAL&LAT COMPARTMENTS Left x2 ARTHRP KNE CONDYLE&PLATU MEDIAL&LAT COMPARTMENTS Left 11/08/2019 revision, Dr. Reyes COLONOSCOPY 2009 due in 5 years COLONOSCOPY 2020 wnl due in 3 years FINGER SURGERY HX Right trigger finger KNEE SURGERY HX Left x6 KNEE SURGERY HX Left 1997 LEG SURGERY HX femur fracture SPINE SURGERY HX 2012 TOTAL KNEE REPLACEMENT Right 2020 CURRENT MEDICATIONS Current Outpatient Medications Medication Sig Dispense Refill HYDROcodone-acetaminophen (NORCO) 5-325 mg per tablet Take 1 tablet by mouth every 6 hours as needed. TAKE 1 TABLET BY MOUTH EVERY 12 HOURS NEEDED FOR PAIN metoprolol tartrate, short acting, (LOPRESSOR) 25 mg tablet TAKE 1 TABLET BY MOUTH TWICE A DAY 180 tablet 3 Propafenone HCl (RYTHMOL) 225 mg tablet TAKE 1 TABLET EVERY 8 HOURS 270 tablet 3 liothyronine (CYTOMEL) 25 mcg tablet Take 25 mcg by mouth once daily. calcitriol (ROCALTROL) 0.25 mcg capsule TAKE 1 PILL BY MOUTH WEDNESDAY, WEDNESDAY, WEDNESDAY inulin (FIBER GUMMIES) 2 gram chew Take 1 Each by mouth as needed. pantoprazole DR (PROTONIX) 40 mg tablet Take 40 mg by mouth once daily. liothyronine (CYTOMEL) 5 mcg tablet Take 1 tablet by mouth twice daily. 180 tablet 0 vit A/vit C/vit E/zinc/copper (ICAPS AREDS ORAL) Take 1 tablet by mouth two times a day. cholecalciferol, Vitamin D3, (VITAMIN D3) 1,250 mcg (50,000 unit) cap capsule Take 50,000 Units by mouth once every month. levothyroxine (SYNTHROID) 112 mcg tablet Take 1 tablet by mouth once daily. 90 tablet 3 EPINEPHrine (EPIPEN) 0.3 mg/0.3 mL auto-injector Inject 0.3 mg intramuscularly as needed. multivitamin tablet Take 1 tablet by mouth once daily. cephALEXin (KEFLEX) 250 mg capsule Take 250 mg by mouth two times a day. (Patient not taking: Reported on 05/08/2024) aspirin, enteric coated (ASPIRIN, ENTERIC COATED) 81 mg EC tablet Take 81 mg by mouth once daily. (Patient not taking: Reported on 05/08/2024) ibuprofen-acetaminophen (ADVIL DUAL ACTION) 125-250 mg tab Take 2 tablets by mouth twice daily as needed. (Patient not taking: Reported on 05/08/2024) No current facility-administered medications for this visit. ALLERGIES ALLERGIES Allergen Reactions Bees Anaphylaxis Codeine Intolerance migraines Adhesive Tape (Marianne* Rash, Itching Adhesive Tape-Silic* Unknown Bee Sting Anaphylaxis Bee Venom Protein (* Anaphylaxis Cortisone Other: See Comments Turns red Dakin's [Sodium Hyp* Unknown Nickel Unknown Vanadium Unknown FAMILY HISTORY FAMILY HISTORY Problem Relation Age of Onset other (stomach cancer) Mother Colon Cancer Mother Hypothyroidism Mother Melanoma Mother 76 Arrythmias Mother Prostate Cancer Father Coronary Artery Disease Father Hypertension Father Hyperlipidemia Father Heart disease Father cardiac murmur Diabetes Maternal Grandmother Heart disease Paternal Grandmother quadruple bypass and of a heart attack at age 75 Breast Cancer Maternal Aunt 42 Lung Cancer Maternal Aunt Graves Disease Other SOCIAL HISTORY Social History Tobacco Use Smoking status: Former Current packs/day: 0.00 Average packs/day: 0.5 packs/day for 10.0 years (5.0 ttl pk-yrs) Types: Cigarettes Start date: 08/17/1977 Quit date: 08/18/1987 Years since quittin.7 Smokeless tobacco: Never Vaping Use Vaping status: Never Used Substance Use Topics Alcohol use: Yes Alcohol/week: 3.0 - 4.0 standard drinks of alcohol Types: 3 - 4 Glasses of Wine (5oz) per week Comment: socially Drug use: Yes Types: Marijuana Review of Systems: Negative except as noted in HPI reviewed 05/08/2024 Physical Exam: BP 112/67 Pulse 63 Temp (Src) 97.8 (Temporal) Wt 158 lb 8 oz (71.9kg) SpO2 98% General: Age-appropriate well developed. Appears well. HEENT: Normocephalic, no sclera icterus, external ears normal, oral cavity clear. Neck: Supple, no thyroid nodules, no JVD. Chest: Clear bilaterally, no wheezes, not labored. Heart: Normal S1 and S2, no abnormal sounds Abdomen: Soft, nontender, nondistended, bowel sounds present, no organomegaly or mass, no rigidity. Extremities: No cyanosis, clubbing, gross deformities. L knee edema s/p 4 knee surgeries, stable Neurological: Cranial nerves II through XII are intact bilaterally, no focal deficits. Skin: Warm and dry with no rashes or ulcerations. Nodes: No palpable adenopathy in the cervical, supraclavicular, infraclavicular, or axillary regions. Hematologic: no bruising or petechiae. Psychiatric: Alert and oriented x3. Emotional well-being assessment was performed. Lab Results Component Value Date WBC 5.88 05/04/2024 HB 12.5 05/04/2024 MCV 89.9 05/04/2024 PLT 235 05/04/2024 Lab Results Component Value Date NA 140 02/01/2024 K 4.2 02/01/2024 CO2 24 02/01/2024 BUN 17 02/01/2024 CREAT 0.93 02/01/2024 TBILI 0.4 02/01/2024 TPROT 7.3 02/01/2024 ALB 4.2 02/01/2024 ALKPHOS 44 02/01/2024 ALT 10 02/01/2024 AST 17 02/01/2024 Assessment and Plan: Ms. Morillo is a pleasant 68 year old woman presenting as new iron deficiency anemia consult Anemia, iron deficiency, Improved - reviewed potential causes and treatment for anemia in detail with patient. - pt with hx of jasen's - lack of dietary intake, malabsorption - no overt s/s of bleeding - met with Dr. Hightower for scopes, only had EGD performed. She states that he did not feel colonoscopy was necessary (no records available) - does note family hx of colorectal ca. - with a new onset DANITA would still suggest colonoscopy for completeness - was started on PO iron by PCP in September. Unable to tolerate due to GI upset, severe constipation. - received IV iron sucrose 200mg x 5 last dose on 03/02/24, tolerated well aside from BURRELL. - CBC, and iron studies improved Plan: - recommend screening colonoscopy - continue to monitor CBC, ferritin, iron studies every 3 months. - OV in 1 year Advised to call with any questions or concerns. Lindsey Zuniga APRN.WAITER/WAITRESS TOURIST CLASS UPDATED HISTORY AND PHYSICAL EXAMINATION SERVICE DATE: 08/03/2024 SERVICE TIME: 11:11 AM PHYSICAL EXAM MUST BE COMPLETED ON ADMISSION The History and Physical (completed in the past 30 days) has been reviewed and the patient has beenexamined. The contents accurately reflect the patient's condition with the following additions or revisions since the H&P was completed. Examination indicates no changes. This H&P can be found in the attached. SIGNATURE: Satish Flynn III, MD PATIENT NAME: Bella Morillo DATE: August 03, 2024 TIME: 11:11 AM documented in [facility] encounterNor[facility]03-28-[facility] Instructions* Patient Instructions* Kylie Galeas - 07/21/2024 2:15 PM EDT COLONOSCOPY BOWEL PREPARATION INSTRUCTIONS GOLYTELY/NULYTELY/TRILYTE/COLYTE Your doctor has scheduled you for a colonoscopy. To have a successful colonoscopy, you must have a clean colon, that is empty. A clean colon allows your doctor to see the entire colon & diagnose issues like polyps or cancer. For doctors, a clean colon is like driving on a gracie day; a dirty colon like driving in a storm. It is very important that you follow these instructions exactly, or your colonoscopy might not be as effective, could be canceled, and you may need to do the bowel prep and the colonoscopy again. TRANSPORTATION REQUIREMENTS You are receiving IV sedation. For your safety, a responsible adult escort must accompany you to and from your procedure: Your adult escort MUST be present with you at check-in for your colonoscopy. Your adult escort MUST remain in the endoscopy area until you are discharged. Your adult escort MUST transport you home once you are discharged. You are NOT allowed to operate any form of transportation (i.e. drive a car, bicycle, etc.) or leave the Endoscopy Center ALONE. It is not safe to do so. If you cannot meet these requirements, your procedure will be canceled. MEDICATION REQUIREMENTS For your safety, certain medications will need to be stopped or adjusted before you can have your procedure: BLOOD THINNERS: If you take blood thinners, such as Coumadin (warfarin), Plavix (clopidogrel), Ticlid (ticlopidine hydrochloride), Agrylin (anagrelide), Xarelto (Rivaroxaban), Pradaxa (Dabigatran), Eliquis (Apixaban), or Effient (Prasugrel), contact the physician who is prescribing these medications at least 2 weeks prior to your procedure to discuss any necessary adjustments. DIABETES: If you take medications for diabetes, your dosage may need to be adjusted. If you are being treated for diabetes with insulin, diabetic pills, or other injectable medicationsdo not take your REGULAR dose after midnight on the day of your procedure. If you are taking any other types of insulin such as Lantus, Humalog, NPH (long- acting insulin), or70/30 insulin, take half your normal dose the day before your procedure. DIABETES/WEIGHT MANAGEMENT: If you take medications for weight-loss, your dosage may need to be adjusted Contact the doctor who prescribes this medication for further instructions. If you take medications for weight-loss like semaglutide (Ozempic, Wegovy, Rybelsus), dulaglutide (Trulicity), liraglutide (Victoza, Saxenda), exenatide (Byetta, Bydureon), or lixisenatide (Adylyxin), stop your medication 1 week prior to your procedure. If you take medications like canagliflozin (Invokana), dapagliflozin (Farxiga, Forxiga), empagliflozin (Jardiance), stop your medication 3 days prior to your procedure. If you take ertugliflozin (Steglatro) stop your medication 4 days prior to your procedure. IRON: If you take iron pills, STOP them 1 week BEFORE your procedure, may resume after. OTHER MEDS: May take all other medications (including aspirin, antibiotics, water pills / diureticslike Lasix or Metolozone, blood pressure meds, etc.) at their usual scheduled time with a sip of water. DIET REQUIREMENTS The day before your colonoscopy, you may have a clear liquid diet (see below). The day of your colonoscopy, you may continue a clear liquid diet until 3 hours before your colonoscopy. Within 3 hours of your colonoscopy, take only any medications (as above) with a sip of water. Clear Liquid Diet Broth (chicken, beef or vegetable broth or bullion. Just the broth, no solids). Water Coffee or Tea (NO milk or creamer), but sugar and sugar substitutes are allowed. Clear liquids including clear, yellow, green, blue (NO red, NO orange, NO purple) Sodas / soft drinks Gatorade or other sports drinks Zen-Aid or flavored drinks Plain Jell-O or other gelatins Fruit juice (strained; no-pulp) Popsicles or hard candy BOWEL PREPARATION (GOLYTELY/NULYTELY/TRILYTE/COLYTE) Split Dosing Bowel Prep: This means drinking your bowel prep in two doses. Split dosing helps cleanyour colon better and makes it less likely that your procedure will be canceled. Fill your prescription for Golytely/Nulytely/Trilyte/Colyte: The afternoon before your colonoscopy, mix the solution and refrigerate. You may add the flavor pack (if present) that came with the bowel preparation. Do not add ice, sugar, or other flavorings to the solution. You will drink your prep in two doses, by several hours. On the evening before your colonoscopy: 1. 6 PM drink the first half of the bowel preparation solution. Drink one 8-ounce glass every 15 minutes. 2. Six hours before your colonoscopy, drink the second half of the solution. Drink one 8-ounce glass every 15 minutes. 3. You may continue a clear liquid diet until 3 hours before your colonoscopy. Bowel prep can work differently from person to person. Some people's bowels move slowly and they may need different instructions. Please see your doctor in office or virtually for personalized bowel prep instructions if you have: Medical condition that needs special accommodations Had a poor bowel prep results or failed bowel prep attempts in the past. Had difficulty with anesthesia during the procedure. FREQUENTLY ASKED QUESTIONS Q: What if I suffer from constipation? A: Recommend taking extra laxatives to resolve your constipation days prior to entering the bowel prep day. Q: What if have had prior poor preps results in past? A: Contact your physician as you will likely need additional bowel prep instructions. Q: What if I have motility issues like Parkinson's, MS (multiple sclerosis), wheelchair dependent, etc.? or on medications that slow bowel emptying (narcotics, gabapentin, anticholinergic medicationsetc.) A: Contact your physician as you will likely need extra time and additional laxatives to complete your bowel prep. Q: What if I cannot drink large volume of liquid? A: Start your prep 2-3 hours earlier to allow yourself more time to complete the entire prep. Q: What if I can't finish my bowel prep? A: If you cannot finish your entire bowel prep, it is likely that your colonoscopy will need to be rescheduled due to poor prep quality. Q: What if I had bariatric surgery? Do I still have to complete the entire prep? A: Yes, gastric bypass surgery involves the stomach & small bowel. You may need to drink smaller amounts, slower (may need more time to complete your bowel prep). Gastric bypass does not alter the length of your colon so you will need to complete the entire bowel prep, it may just take longer time to complete it. Q: What if I am on dialysis? A: Please consult your machine operator helper prior to scheduling to get instructions pertinent to you. In general, dialysis patients take the Golytely bowel prep and have the procedure same day of their dialysis (colonoscopy in AM, dialysis in PM). Q: How do I know if something is considered as clear liquid diet? A: If you can pour it in a glass and you can see through it, it is considered clear liquid Q: Can I eat nuts, seeds, beans, popcorn, dried fruits, vegetables & fruits that have skin peel? A: No, you will need to not eat these items starting 3 days prior to procedure. Q: Can I take Uber/Lyft/taxi/bus home? A: An adult MUST be present with you at check-in for your colonoscopy and remain in the endoscopy area until you are discharged. You can take Uber home only if this adult escort is with you at check in, remain in the endoscopy area until you are discharged, and takes the Uber with you to home. Q: Can I sleep it off here and drive myself home? A: No, you must have an adult with you at time of procedure check in, remain in the endoscopy center during your procedure, and drive you home. You cannot drive a vehicle after your procedure the rest of the day. documented in this encounterNor[facility]03-28-[facility]25 Telephone encounter Note * Telephone Encounter - Kylie Galeas - 07/21/2024 2:07 PM EDT Indication: HIGH RISK SCREENING COLONOSCOPY Patient must be at least 45 years old for screening colonoscopy unless other high risk factors. Anyone over 80 requires an office visit prior to scheduling screening colonoscopy. Personal History Colon polyps? No Colon cancer? No Crohn's Disease? No Ulcerative Colitis? No If any answers are a yes, pt is HIGH RISK SCREENING Family History Colon polyps? No Colon cancer? Yes - Mother If any answers are a yes, pt is HIGH RISK SCREENING Height: 5'7 Weight: 150 lbs BMI: 23.5 (If BMI over 45, can't be scheduled in [place], If BMI is 40-45, must schedule an airway check priorto scheduling in [place]) Tracheostomy new or old No If yes, schedule at hospital Any surgery or radiation to the head or neck? No If can't move neck side to side & up and down, schedule at hospital. Radiation to neck or head automatically gets scheduled at hospital Implanted defibrillator (ACD)? No If yes, schedule at hospital Have you ever been told you were difficult to intubate? No If yes, schedule at hospital Allergies: Latex, Adhesives, or Medication? Adhesives - Blisters, Medications - Codeine If anaphylactic reaction to latex, schedule at hospital Recent stroke or cardiac event in the past 6 months? No (ex: heart attack or stent placement). If yes, schedule 6 months after cardiac event. *Patient has a history of Afib Are you insulin dependent? Are your sugars in control? Ask what BS is running. No If controlled sugars needs scheduled in early AM, If uncontrolled sugars and are over 250 needs to be scheduled at hospital. Are you on any weight loss/diabetic medications (injectable or oral)? No If yes, please have pt contact prescribing physician about stopping med prior to procedure. On oxygen at home? No If yes, give to GARAGE HELPER to evaluate. Chest pain or shortness of breath on exertion? No If yes, give to GARAGE HELPER to evaluate. Any kidney/liver disease or on dialysis? No If cirrhosis pt., have GARAGE HELPER review chart History of COPD/Emphysema/Asthma/or Sleep Apnea? No If uses an inhaler, have pt bring inhaler with them. On any blood thinners? No (Coumadin, Plavix, ASA, Xarelto, Brilinta, Eliquis, Pradaxa, Efficent etc.) If yes, have patient contact prescribing physician about stopping prior to procedure. Do you have a history of seizures? No If yes, when was last seizure? [facility]03-28-[facility] Miscellaneous Notes* Telephone Encounter - Kylie Galeas - 07/21/2024 2:07 PM EDT Indication: HIGH RISK SCREENING COLONOSCOPY Patient must be at least 45 years old for screening colonoscopy unless other high risk factors. Anyone over 80 requires an office visit prior to scheduling screening colonoscopy. Personal History Colon polyps? No Colon cancer? No Crohn's Disease? No Ulcerative Colitis? No If any answers are a yes, pt is HIGH RISK SCREENING Family History Colon polyps? No Colon cancer? Yes - Mother If any answers are a yes, pt is HIGH RISK SCREENING Height: 5'7 Weight: 150 lbs BMI: 23.5 (If BMI over 45, can't be scheduled in [place], If BMI is 40-45, must schedule an airway check priorto scheduling in [place]) Tracheostomy new or old No If yes, schedule at hospital Any surgery or radiation to the head or neck? No If can't move neck side to side & up and down, schedule at hospital. Radiation to neck or head automatically gets scheduled at hospital Implanted defibrillator (ACD)? No If yes, schedule at hospital Have you ever been told you were difficult to intubate? No If yes, schedule at hospital Allergies: Latex, Adhesives, or Medication? Adhesives - Blisters, Medications - Codeine If anaphylactic reaction to latex, schedule at hospital Recent stroke or cardiac event in the past 6 months? No (ex: heart attack or stent placement). If yes, schedule 6 months after cardiac event. *Patient has a history of Afib Are you insulin dependent? Are your sugars in control? Ask what BS is running. No If controlled sugars needs scheduled in early AM, If uncontrolled sugars and are over 250 needs to be scheduled at hospital. Are you on any weight loss/diabetic medications (injectable or oral)? No If yes, please have pt contact prescribing physician about stopping med prior to procedure. On oxygen at home? No If yes, give to GARAGE HELPER to evaluate. Chest pain or shortness of breath on exertion? No If yes, give to GARAGE HELPER to evaluate. Any kidney/liver disease or on dialysis? No If cirrhosis pt., have GARAGE HELPER review chart History of COPD/Emphysema/Asthma/or Sleep Apnea? No If uses an inhaler, have pt bring inhaler with them. On any blood thinners? No (Coumadin, Plavix, ASA, Xarelto, Brilinta, Eliquis, Pradaxa, Efficent etc.) If yes, have patient contact prescribing physician about stopping prior to procedure. Do you have a history of seizures? No If yes, when was last seizure? documented in this encounterNorwalk [facility]03-27-2025 NoteHNO ID: [id number] Author: CHI ZAMORA MD Service: ? Author Type: Physician Type: Progress Notes Filed: 07/20/2024 14:52 Note Text: [facility] SECTION OF CARDIAC PACING and ELECTROPHYSIOLOGY OUTPATIENT VISIT DATE July 20, 2024 OUTPATIENT VISIT TYPE ESTABLISHED PRIMARY CARE PHYSICIAN: Sridhar Montero IV [address] [place] [address] HISTORY OF PRESENT ILLNESS: Prior history, edited as needed: 68 year female with history of PAF, s/p catheter ablation approximately 25 years ago and repeat radiofrequency ablation at [facility] in 2012, has been maintained on low-dose propafenone for symptomatic PACs, VJM1-VS2-FLSj score of 1 for gender only, not anticoagulated, developed an episode of atrial fibrillation in early 2018, converted spontaneously. That was the first symptomatic episode of atrial fibrillation in the last 6 years. Since then her propafenone was increased to 225 mg 3 times a day. She was continued on metoprolol as well. Her ablation was performed in April 2012. Achieving electrical isolation of the left superior and left pulmonary veins required extensive ablation of the region area between left atrial appendage and the veins. 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 Interval history: Bella presents for follow-up. She has been feeling well, palpitation, dyspnea, or dizziness. She remains on propafenone with no obvious complications. She is contemplating another orthopedic surgery. Recent 14-day event monitor demonstrated sinus rhythm with infrequent PACs and no sustained arrhythmia. Echocardiogram showed normal LV systolic function, no significant LVH or valve issues. ECG today shows sinus rhythm at 60 bpm with normal intervals. Interval history: Bella presents for follow-up. In the last couple months she had several episodes of atrial fibrillation lasting for hours. She experienced severe palpitation, subsequent fatigue, and some degree of dyspnea. Both episodes resolved spontaneously. She was seen in the ER once and stay home without the time. Since then she had several brief episodes for which she did not seek medical attention. She is not on anticoagulation. Her JON7-EF2-BWIc score is currently 2, for gender and age. She was recently diagnosed with anemia and is planned for lower endoscopy. Remains on propafenone for PACs. ECG shows sinus bradycardia 58 beats minute. 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 TAKE 1 TABLET BY MOUTH EVERY 12 HOURS NEEDED FOR PAIN metoprolol tartrate, short acting, (LOPRESSOR) 25 mg tablet TAKE 1 TABLET BY MOUTH TWICE A DAY Propafenone HCl (RYTHMOL) 225 mg tablet TAKE 1 TABLET EVERY 8 HOURS calcitriol (ROCALTROL) 0.25 mcg capsule TAKE 1 PILL BY MOUTH WEDNESDAY, WEDNESDAY, WEDNESDAY aspirin, enteric coated (ASPIRIN, ENTERIC COATED) 81 mg EC tablet Take 81 mg by mouth once daily. inulin (FIBER GUMMIES) 2 gram chew Take 1 Each by mouth as needed. pantoprazole DR (PROTONIX) 40 mg tablet Take 40 mg by mouth once daily. liothyronine (CYTOMEL) 5 mcg tablet Take 1 tablet by mouth twice daily. vit A/vit C/vit E/zinc/copper (ICAPS AREDS ORAL) Take 1 tablet by mouth two times a day. cholecalciferol, Vitamin D3, (VITAMIN D3) 1,250 mcg (50,000 unit) cap capsule Take 50,000 Units by mouth once every month. levothyroxine (SYNTHROID) 112 mcg tablet Take 1 tablet by mouth once daily. EPINEPHrine (EPIPEN) 0.3 mg/0.3 mL auto-injector Inject 0.3 mg intramuscularly as needed. liothyronine (CYTOMEL) 25 mcg tablet Take 25 mcg by mouth once daily. cephALEXin (KEFLEX) 250 mg capsule Take 250 mg by mouth two times a day. ibuprofen-acetaminophen (ADVIL DUAL ACTION) 125-250 mg tab Take 2 tablets by mouth twice daily as needed. (Patient not taking: Reported on 05/08/2024) multivitamin tablet Take 1 tablet by mouth once daily. Review of Systems Constitutional: Positive for fatigue. Respiratory: Negative for shortness of breath. Cardiovascular: Positive for palpitations. Negative for chest pain. (more content not included)...[facility]03-27-2025 History of Present illness Narrative* Chi Zamora MD - 07/20/2024 2:44 PM EDT Images from the original note were not included. [facility] SECTION OF CARDIAC PACING and ELECTROPHYSIOLOGY OUTPATIENT VISIT DATE July 20, 2024 OUTPATIENT VISIT TYPE ESTABLISHED PRIMARY CARE PHYSICIAN: Sridhar Montero IV [address] [place] [address] HISTORY OF PRESENT ILLNESS: Prior history, edited as needed: 68 year female with history of PAF, s/p catheter ablation approximately 25 years ago and repeat radiofrequency ablation at [facility] in 2012, has been maintained on low-dose propafenone for symptomatic PACs, TRQ4-IY2-QCPg score of 1 for gender only, not anticoagulated, developed an episode of atrial fibrillation in early 2018, converted spontaneously. That was the first symptomatic episode of atrial fibrillation in the last 6 years. Since then her propafenone was increased to 225 mg 3 times a day. She was continued on metoprolol as well. Her ablation was performed in April 2012. Achieving electrical isolation of the left superior andleft pulmonary veins required extensive ablation of the region area between left atrial appendage and the veins. 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 Interval history: Bella presents for follow-up. She has been feeling well, palpitation, dyspnea, or dizziness. She remains on propafenone with no obvious complications. She is contemplating another orthopedic surgery. Recent 14-day event monitor demonstrated sinus rhythm with infrequent PACs and no sustained arrhythmia. Echocardiogram showed normal LV systolic function, no significant LVH or valve issues. ECG today shows sinus rhythm at 60 bpm with normal intervals. Interval history: Bella presents for follow-up. In the last couple months she had several episodes of atrial fibrillation lasting for hours. She experienced severe palpitation, subsequent fatigue, and some degree of dyspnea. Both episodes resolved spontaneously. She was seen in the ER once and stay home without the time. Since then she had several brief episodes for which she did not seek medical attention. She is not on anticoagulation. Her BRC4-OK3-CRXr score is currently 2, for gender and age. She was recently diagnosed with anemia and is planned for lower endoscopy. Remains on propafenone for PACs. ECG shows sinus bradycardia 58 beats minute. 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 TAKE 1 TABLET BY MOUTH EVERY 12 HOURS NEEDED FOR PAIN metoprolol tartrate, short acting, (LOPRESSOR) 25 mg tablet TAKE 1 TABLET BY MOUTH TWICE A DAY Propafenone HCl (RYTHMOL) 225 mg tablet TAKE 1 TABLET EVERY 8 HOURS calcitriol (ROCALTROL) 0.25 mcg capsule TAKE 1 PILL BY MOUTH WEDNESDAY, WEDNESDAY, WEDNESDAY aspirin, enteric coated (ASPIRIN, ENTERIC COATED) 81 mg EC tablet Take 81 mg by mouth once daily. inulin (FIBER GUMMIES) 2 gram chew Take 1 Each by mouth as needed. pantoprazole DR (PROTONIX) 40 mg tablet Take 40 mg by mouth once daily. liothyronine (CYTOMEL) 5 mcg tablet Take 1 tablet by mouth twice daily. vit A/vit C/vit E/zinc/copper (ICAPS AREDS ORAL) Take 1 tablet by mouth two times a day. cholecalciferol, Vitamin D3, (VITAMIN D3) 1,250 mcg (50,000 unit) cap capsule Take 50,000 Units by mouth once every month. levothyroxine (SYNTHROID) 112 mcg tablet Take 1 tablet by mouth once daily. EPINEPHrine (EPIPEN) 0.3 mg/0.3 mL auto-injector Inject 0.3 mg intramuscularly as needed. liothyronine (CYTOMEL) 25 mcg tablet Take 25 mcg by mouth once daily. cephALEXin (KEFLEX) 250 mg capsule Take 250 mg by mouth two times a day. ibuprofen-acetaminophen (ADVIL DUAL ACTION) 125-250 mg tab Take 2 tablets by mouth twice daily as needed. (Patient not taking: Reported on 05/08/2024) multivitamin tablet Take 1 tablet by mouth once daily. Review of Systems Constitutional: Positive for fatigue. Respiratory: Negative for shortness of breath. Cardiovascular: Positive for palpitations. Negative for chest pain. Neurological: Negative for syncope. Psychiatric/Behavioral: The patient is not nervous/anxious. PHYSICAL EXAMINATION: BP 132/76 (BP Site: Right Arm, BP Position: Sitting, BP Cuff Size: Regular Adult) Pulse (!) 58 Resp 16 Ht 5' 7 (1.702 m) Wt 155 lb (70.3 kg) SpO2 98% BMI 24.28 kg/m BP w/Orthostatic Vitals Date and Time Orthostatic BP Orthostatic Pulse BP Pulse BP Position BP Site BP Cuff Size 07/20/24 1352 -- -- 132/76 58 Sitting Right Arm Regular Adult Peak Flow Date and Time PF Resp 07/20/24 1352 -- 16 Physical Exam Constitutional: Appearance: Normal appearance. HENT: Head: Normocephalic and atraumatic. Eyes: Conjunctiva/sclera: Conjunctivae normal. Cardiovascular: Rate and Rhythm: Normal rate and regular rhythm. Pulmonary: Effort: Pulmonary effort is normal. No respiratory distress. Breath sounds: No stridor. Skin: General: Skin is dry. Coloration: Skin is not pale. Neurological: Mental Status: She is alert and oriented to person, place, and time. Psychiatric: Mood and Affect: Mood normal. I have personally reviewed the Electrocardiogram. Assessment PLAN AND RECOMMENDATIONS: ASSESSMENT/PLAN: 1. Paroxysmal atrial fibrillation (HCC) - ICD9: 427.31, ICD10: I48.0 (primary diagnosis) Status post catheter ablation 12 years ago, recent symptomatic recurrences increasing in frequency.We discussed class III antiarrhythmic versus catheter ablation, and the latter option appears to bemore appealing. If no clear source of anemia is identified on colonoscopy, will start oral anticoagulant and proceed with catheter ablation. She will require anticoagulation for at least 3 months post, and afterwards she will need to have another discussion regarding pros and cons of continued anticoagulation. - ECG B/O W INTERP (MED OFFICE) 2. At risk for stroke - ICD9: V15.89, ICD10: Z91.89 [id number] score of 2 (age, gender), although lately there was some discussion about borderline diabetes, but this is not definitive 3. Anemia, unspecified type - ICD9: 285.9, ICD10: D64.9 As above Chi Zamora MD CONTACT INFORMATION: Chi Zamora MD documented [facility] Telephone encounter Note * Telephone Encounter - Jasmyn Wood LPN - 07/10/2024 9:39 AM EDT I spoke to Bella Morillo and informed them of 's response and recommendations. Patient voiced understanding and agrees to proceed with 07/20/2024 appointment provided by clerical. Jasmyn Wood LPN [facility]03-17-20[facility] Miscellaneous Notes* Telephone Encounter - Jasmyn Wood LPN - 07/10/2024 9:39 AM EDT I spoke to Bella Morillo and informed them of 's response and recommendations. Patient voiced understanding and agrees to proceed with 07/20/2024 appointment provided by clerical. Jasmyn Wood LPN * Telephone Encounter - Margarita Rangel - 07/10/2024 9:12 AM EDT Left message with appointment date/time Margarita Rangel * Telephone Encounter - Chi Zamora MD - 07/10/2024 9:02 AM EDT Let;s schedule her for an appt with me in a week or 2 to review the options.Chi Zamora MD * Telephone Encounter - Jasmyn Wood LPN - 07/07/2024 9:49 AM EDT Bella Morillo called in and states she went to [facility] on Wednesday for Atrial fib with heart rates up to 165 BPM. They gave her Cardizem and Magnesium and heart rate came down to 100 and she was released. Patient woke up this am at 1:30 in atrial fib with elevated heart rate 125BPM. Patient took Metoprolol 50 mg at 3:30 am due to still in atrial fib with elevated heart rates.Patient remains on Rythmol 225 mg three times daily and Metoprolol 25 mg twice daily. States her heart rate is currently at 119. States she has palpitations and occasional SOB. Patient asking if any medication changes should be made? She is not due for follow up until 08/2024. Jasmyn Wood LPN documented [facility]03-[facility]25 Telephone encounter Note * Telephone Encounter - Margarita Rangel - 07/10/2024 9:12 AM EDT Left message with appointment date/time Margarita Rangel [facility]03-17-2025 Telephone encounter Note* Telephone Encounter - Chi Zamora MD - 07/10/2024 9:02 AM EDT Let;s schedule her for an appt with me in a week or 2 to review the options.Chi Zamora MD [place] [id number] Telephone encounter Note* Telephone Encounter - Jasmyn Wood LPN - 07/07/2024 9:49 AM EDT Bella Morillo called in and states she went to [facility] on Wednesday for Atrial fib with heart rates up to 165 BPM. They gave her Cardizem and Magnesium and heart rate came down to 100 and she was released. Patient woke up this am at 1:30 in atrial fib with elevated heart rate 125BPM. Patient took Metoprolol 50 mg at 3:30 am due to still in atrial fib with elevated heart rates.Patient remains on Rythmol 225 mg three times daily and Metoprolol 25 mg twice daily. States her heart rate is currently at 119. States she has palpitations and occasional SOB. Patient asking if any medication changes should be made? She is not due for follow up until 08/2024. Jasmyn Wood LPN [facility]02-23-2025 Note. MICRO - Microbiology PROCEDURE: Urine Culture [*1] SOURCE: Urine, Clean Catch BODY SITE: COLLECTED DATE/TIME: 06/16/2024 14:25 EST RECEIVED DATE/TIME: 06/16/2024 19:04 EST START DATE/TIME: 06/16/2024 19:04 EST FREE TEXT SOURCE: FINAL REPORTS Final Report [] Verified Date/Time/Personnel: 06/18/2024 08:41 EST >100,000 cfu/ml Escherichia coli PRELIMINARY REPORTS Preliminary Report [] Verified Date/Time/Personnel: 06/17/2024 11:57 EST >100,000 cfu/ml Escherichia coli TRUDY to follow SUSCEPTIBILITY RESULTS Escherichia coli Antibiotic TRUDY Dilut TRUDY Inter Ampicillin <=8 Susceptible Ampicillin/ <=4/2 Susceptible Sulbactam Aztreonam <=4 Susceptible Cefazolin <=2 Susceptible Ceftazidime/ <=4 Susceptible Avibactam Ceftolozane/ <=2 Susceptible Tazobactam Ciprofloxacin <=0.25 Susceptible Ertapenem <=0.5 Susceptible Gentamicin <=2 Susceptible ID Panel Not Not Applicable Applicable Imipenem <=1 Susceptible Levofloxacin <=0.5 Susceptible Meropenem <=1 Susceptible Minocycline <=4 Susceptible Nitrofurantoin <=32 Susceptible Trimethoprim/ <=0.5/9.5 Susceptible Sulfa Performing Locations *1: This test was performed at: [facility], [address] [place] [address], [id number] , [facility]01-13-2025 History of Present illness Narrative* Tesfaye Zunigana - 05/08/2024 9:30 AM EST Progress Note Bella Morillo 1955 Encounter date: 05/08/2024 HPI: Bella Morillo is a 68 year old female with PMHx of afib with PACs, jasen's, osteoporosis, knee replacement, CKD, and anemia. She presents as a referral from her PCP, Dr. Montero for DANITA withinability to tolerate PO iron. Ms. Morillo reports fatigue. Denies any current SOB, CP. She does have a hx of afib with PACs. Not currently on anticoagulation. She denies current overt s/s of bleeding. UTI in November with hematuria.No issues since then. Denies any new aches or pains. She has chronic knee pain 2/2 several knee replacements. She has met with ortho and was given several options for further treatment, including monitoring which she has chosen. Constant bowel issues. Seeing Dr. Hightower at the end of the month for a colonscopy. Last scope 2 years ago. No concerns. Had an EGD several years ago. Started PO iron BID in September, somewhat intermittent. Stopped taking about 2 weeks ago due to significant constipation and occasional upset stomach. Taking hungarian perfecto as needed. Currently trying to get thyroid under better control. Fluctuating TSH. Endorses dry skin, hair loss. Does not eat red meat, does not eat processed meats. Blood transfusion at time of knee surgery, (maybe 4 or five total) Fiber gummies, occasional tums, jose back and body occasionally. No regular NSAID or antiacid use. Mother of colon ca dx age of 73, 6 weeks later. 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 Interval Hx: Pt presents today for follow up and lab review after receiving IV iron. Counts responded well Tolerated IV iron well overall aside from BURRELL. Notes BURRELL following second infusion lasted about a dayresolved. No other issues. Saw Dr. Hightower, states no indication for scope. Performed EGD. Last scope was > 4 years ago, [facility] [place] Dr. Berumen. Reviewed would recommend repeat screening colonoscopy with a new DANITA diagnosis. Started on [place] by Dr Montero for knee pain. Denies bleeding or bruising. No changes in bowel or bladder habits. 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 Knee pain Macular degeneration Migraine with aura Osteopenia 2010 PAC (premature atrial contraction) Palpitations Pituitary disorder (HCC) prolactin elevation on reglan Postmenopausal osteoporosis 2015 Thyrotoxicosis without mention of goiter or other cause Uterine fibroid Vitamin D deficiency PAST SURGICAL HISTORY Procedure Laterality Date AFIB ABLATION/PULM VEIN ISOLATION 2006 pulmonary vein ablation for A fib AFIB ABLATION/PULM VEIN ISOLATION 2014 ARTHROTOMY W/MENISCUS REPAIR KNEE Left 1966 Open knee reconstruction ARTHRP KNE CONDYLE&PLATU MEDIAL&LAT COMPARTMENTS Left x2 ARTHRP KNE CONDYLE&PLATU MEDIAL&LAT COMPARTMENTS Left 11/08/2019 revision, Dr. Reyes COLONOSCOPY 2009 due in 5 years COLONOSCOPY 2020 wnl due in 3 years FINGER SURGERY HX Right trigger finger KNEE SURGERY HX Left x6 KNEE SURGERY HX Left 1997 LEG SURGERY HX femur fracture SPINE SURGERY HX 2012 TOTAL KNEE REPLACEMENT Right 2020 Current Outpatient Medications Medication Sig Dispense Refill HYDROcodone-acetaminophen (NORCO) 5-325 mg per tablet Take 1 tablet by mouth every 6 hours as needed. TAKE 1 TABLET BY MOUTH EVERY 12 HOURS NEEDED FOR PAIN metoprolol tartrate, short acting, (LOPRESSOR) 25 mg tablet TAKE 1 TABLET BY MOUTH TWICE A DAY 180 tablet 3 Propafenone HCl (RYTHMOL) 225 mg tablet TAKE 1 TABLET EVERY 8 HOURS 270 tablet 3 liothyronine (CYTOMEL) 25 mcg tablet Take 25 mcg by mouth once daily. calcitriol (ROCALTROL) 0.25 mcg capsule TAKE 1 PILL BY MOUTH WEDNESDAY, WEDNESDAY, WEDNESDAY inulin (FIBER GUMMIES) 2 gram chew Take 1 Each by mouth as needed. pantoprazole DR (PROTONIX) 40 mg tablet Take 40 mg by mouth once daily. liothyronine (CYTOMEL) 5 mcg tablet Take 1 tablet by mouth twice daily. 180 tablet 0 vit A/vit C/vit E/zinc/copper (ICAPS AREDS ORAL) Take 1 tablet by mouth two times a day. cholecalciferol, Vitamin D3, (VITAMIN D3) 1,250 mcg (50,000 unit) cap capsule Take 50,000 Units by mouth once every month. levothyroxine (SYNTHROID) 112 mcg tablet Take 1 tablet by mouth once daily. 90 tablet 3 EPINEPHrine (EPIPEN) 0.3 mg/0.3 mL auto-injector Inject 0.3 mg intramuscularly as needed. multivitamin tablet Take 1 tablet by mouth once daily. cephALEXin (KEFLEX) 250 mg capsule Take 250 mg by mouth two times a day. (Patient not taking: Reported on 05/08/2024) aspirin, enteric coated (ASPIRIN, ENTERIC COATED) 81 mg EC tablet Take 81 mg by mouth once daily. (Patient not taking: Reported on 05/08/2024) ibuprofen-acetaminophen (ADVIL DUAL ACTION) 125-250 mg tab Take 2 tablets by mouth twice daily as needed. (Patient not taking: Reported on 05/08/2024) No current facility-administered medications for this visit. ALLERGIES Allergen Reactions Bees Anaphylaxis Codeine Intolerance migraines Adhesive Tape (Marianne* Rash, Itching Adhesive Tape-Silic* Unknown Bee Sting Anaphylaxis Bee Venom Protein (* Anaphylaxis Cortisone Other: See Comments Turns red Dakin's [Sodium Hyp* Unknown Nickel Unknown Vanadium Unknown FAMILY HISTORY Problem Relation Age of Onset other (stomach cancer) Mother Colon Cancer Mother Hypothyroidism Mother Melanoma Mother 76 Arrythmias Mother Prostate Cancer Father Coronary Artery Disease Father Hypertension Father Hyperlipidemia Father Heart disease Father cardiac murmur Diabetes Maternal Grandmother Heart disease Paternal Grandmother quadruple bypass and of a heart attack at age 75 Breast Cancer Maternal Aunt 42 Lung Cancer Maternal Aunt Graves Disease Other Social History Tobacco Use Smoking status: Former Current packs/day: 0.00 Average packs/day: 0.5 packs/day for 10.0 years (5.0 ttl pk-yrs) Types: Cigarettes Start date: 08/17/1977 Quit date: 08/18/1987 Years since quittin.7 Smokeless tobacco: Never Vaping Use Vaping status: Never Used Substance Use Topics Alcohol use: Yes Alcohol/week: 3.0 - 4.0 standard drinks of alcohol Types: 3 - 4 Glasses of Wine (5oz) per week Comment: socially Drug use: Yes Types: Marijuana Review of Systems: Negative except as noted in HPI reviewed 05/08/2024 Physical Exam: BP 112/67 Pulse 63 Temp (Src) 97.8 (Temporal) Wt 158 lb 8 oz (71.9kg) SpO2 98% General: Age-appropriate well developed. Appears well. HEENT: Normocephalic, no sclera icterus, external ears normal, oral cavity clear. Neck: Supple, no thyroid nodules, no JVD. Chest: Clear bilaterally, no wheezes, not labored. Heart: Normal S1 and S2, no abnormal sounds Abdomen: Soft, nontender, nondistended, bowel sounds present, no organomegaly or mass, no rigidity. Extremities: No cyanosis, clubbing, gross deformities. L knee edema s/p 4 knee surgeries, stable Neurological: Cranial nerves II through XII are intact bilaterally, no focal deficits. Skin: Warm and dry with no rashes or ulcerations. Nodes: No palpable adenopathy in the cervical, supraclavicular, infraclavicular, or axillary regions. Hematologic: no bruising or petechiae. Psychiatric: Alert and oriented x3. Emotional well-being assessment was performed. Lab Results Component Value Date WBC 5.88 05/04/2024 HB 12.5 05/04/2024 MCV 89.9 05/04/2024 PLT 235 05/04/2024 Lab Results Component Value Date NA 140 02/01/2024 K 4.2 02/01/2024 CO2 24 02/01/2024 BUN 17 02/01/2024 CREAT 0.93 02/01/2024 TBILI 0.4 02/01/2024 TPROT 7.3 02/01/2024 ALB 4.2 02/01/2024 ALKPHOS 44 02/01/2024 ALT 10 02/01/2024 AST 17 02/01/2024 Assessment and Plan: Ms. Morillo is a pleasant 68 year old woman presenting as new iron deficiency anemia consult Anemia, iron deficiency, Improved - reviewed potential causes and treatment for anemia in detail with patient. - pt with hx of jasen's - lack of dietary intake, malabsorption - no overt s/s of bleeding - met with Dr. Hightower for scopes, only had EGD performed. She states that he did not feel colonoscopy was necessary (no records available) - does note family hx of colorectal ca. - with a new onset DANITA would still suggest colonoscopy for completeness - was started on PO iron by PCP in September. Unable to tolerate due to GI upset, severe constipation. - received IV iron sucrose 200mg x 5 last dose on 03/02/24, tolerated well aside from BURRELL. - CBC, and iron studies improved Plan: - recommend screening colonoscopy - continue to monitor CBC, ferritin, iron studies every 3 months. - OV in 1 year Advised to call with any questions or concerns. Lindsey Zuniga APRN.WAITER/WAITRESS TOURIST CLASS I spent a total of 30 minutes on the date of the service which included preparing to see the patient, [id number] patient care, completing clinical documentation, obtaining and/or reviewing separately obtained history, performing a medically appropriate examination, and counseling and educating the patient/family/caregiver. Portions of this note including HPI, ROS, impression/plan may have been copied forward as to provide important historical information essential in contributing to medical decision making. Documentation has been reviewed and edited as necessary to support clinical decision making for today's visit and to reflect my own independent evaluation of this patient. [facility]01-[facility]25 NoteHNO ID: [id number] Author: LINDSEY ZUNIGA, ? Service: ? Author Type: Nurse Practitioner Type: Progress Notes Filed: 05/10/2024 15:20 Note Text: Progress Note Bella Morillo 1955 Encounter date: 05/08/2024 HPI: Bella Morillo is a 68 year old female with PMHx of afib with PACs, jasen's, osteoporosis, knee replacement, CKD, and anemia. She presents as a referral from her PCP, Dr. Montero for DANITA with inability to tolerate PO iron. Ms. Morillo reports fatigue. Denies any current SOB, CP. She does have a hx of afib with PACs. Not currently on anticoagulation. She denies current overt s/s of bleeding. UTI in November with hematuria. No issues since then. Denies any new aches or pains. She has chronic knee pain 2/2 several knee replacements. She has met with ortho and was given several options for further treatment, including monitoring which she has chosen. Constant bowel issues. Seeing Dr. Hightower at the end of the month for a colonscopy. Last scope 2 years ago. No concerns. Had an EGD several years ago. Started PO iron BID in September, somewhat intermittent. Stopped taking about 2 weeks ago due to significant constipation and occasional upset stomach. Taking hungarian perfecto as needed. Currently trying to get thyroid under better control. Fluctuating TSH. Endorses dry skin, hair loss. Does not eat red meat, does not eat processed meats. Blood transfusion at time of knee surgery, (maybe 4 or five total) Fiber gummies, occasional tums, jose back and body occasionally. No regular NSAID or antiacid use. Mother of colon ca dx age of 73, 6 weeks later. 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 Interval Hx: Pt presents today for follow up and lab review after receiving IV iron. Counts responded well Tolerated IV iron well overall aside from BURRELL. Notes BURRELL following second infusion lasted about a day resolved. No other issues. Saw Dr. Hightower, states no indication for scope. Performed EGD. Last scope was > 4 years ago, [facility] [place] Dr. Berumen. Reviewed would recommend repeat screening colonoscopy with a new DANITA diagnosis. Started [place] by Dr Montero for knee pain. Denies bleeding or bruising. No changes in bowel or bladder habits. PAST MEDICAL HISTORY Diagnosis Date Anemia Atrial fibrillation (HCC) Atrophic vaginitis Dyspareunia in female Family history of breast cancer Family history of colon cancer offered Colaris Jona; pt needs to complete genetic counseling Family history of malignant melanoma Femur fracture (HCC) trip/fall from standing height High risk for hip fracture 05/2019 FRAX Hip 3% 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 Knee pain Macular degeneration Migraine with aura Osteopenia 2010 PAC (premature atrial contraction) Palpitations Pituitary disorder (HCC) prolactin elevation on reglan Postmenopausal osteoporosis 2015 Thyrotoxicosis without mention of goiter or other cause Uterine fibroid Vitamin D deficiency PAST SURGICAL HISTORY Procedure Laterality Date AFIB ABLATION/PULM VEIN ISOLATION 2005 pulmonary vein ablation for A fib AFIB ABLATION/PULM VEIN ISOLATION 2014 ARTHROTOMY W/MENISCUS REPAIR KNEE Left 1966 Open knee reconstruction ARTHRP KNE CONDYLEANDPLATU MEDIALANDLAT COMPARTMENTS Left x2 ARTHRP KNE CONDYLEANDPLATU MEDIALANDLAT COMPARTMENTS Left 11/08/2019 revision, Dr. Reyes COLONOSCOPY 2009 due in 5 years COLONOSCOPY 2020 wnl due in 3 years FINGER SURGERY HX Right trigger finger KNEE SURGERY HX Left x6 KNEE SURGERY HX Left 1996 LEG SURGERY HX femur fracture SPINE SURGERY HX 2012 TOTAL KNEE REPLACEMENT Right 2020 Current Outpatient Medications Medication Sig Dispense Refill HYDROcodone-acetaminophen (NORCO) 5-325 mg per tablet Take 1 tablet by mouth every 6 hours as needed. TAKE 1 TABLET BY MOUTH EVERY 12 HOURS NEEDED FOR PAIN metoprolol tartrate, short acting, (LOPRESSOR) 25 mg tablet TAKE 1 TABLET BY MOUTH TWICE A DAY 180 tablet 3 Propafenone HCl (RYTHMOL) 225 mg tablet TAKE 1 TABLET EVERY 8 HOURS 270 tablet 3 liothyronine (CYTOMEL) 25 mcg tablet Take 25 mcg by mouth once daily. calcitriol (ROCALTROL) 0.25 mcg capsule TAKE 1 PILL BY MOUTH WEDNESDAY, WEDNESDAY, WEDNESDAY inulin (FIBER GUMMIES) 2 gram chew Take 1 Each by mouth as needed. pantoprazole DR (PROTONIX) 40 mg tablet Take 40 mg by mouth once daily. liothyronine (CYTOMEL) 5 mcg tablet Take 1 tablet by mouth twice daily. 180 tablet 0 vit A/vit C/vit E/zinc/copper (ICAPS AREDS ORAL) Take 1 tablet by mouth two times a day. cholecalciferol, Vitamin D3, (VITAMIN D3) 1,250 mcg (50,000 unit) cap capsule Take 50,000 Units by mouth once every month. levothyroxine (SYNTHROID) 112 mcg tablet Take 1 tablet by mouth once daily. 90 tablet 3 EPINEPHrine (EPIPEN) 0.3 mg/0.3 mL auto-injector Inject 0 (more content not included)...[facility]12-06-2024 Telephone encounter Note* Telephone Encounter - Jasmyn Wood LPN - 03/31/2024 7:33 AM EST Patient's request for medication is as follows: Requested Prescriptions Pending Prescriptions Disp Refills metoprolol tartrate, short acting, (LOPRESSOR) 25 mg tablet [Pharmacy Med Name: METOPROLOL [id number] MG TAB] 180 tablet 3 Sig: TAKE 1 TABLET BY MOUTH TWICE A DAY Last seen 09/13/2023.Recall scheduled for 09/12/2024. Prescription(s) as above. Please process accordingly. Jasmyn Wood LPN [facility]12-06-2024 Miscellaneous Notes* Telephone Encounter - Jasmyn Wood LPN - 03/31/2024 7:33 AM EST Patient's request for medication is as follows: Requested Prescriptions Pending Prescriptions Disp Refills metoprolol tartrate, short acting, (LOPRESSOR) 25 mg tablet [Pharmacy Med Name: METOPROLOL [id number] MG TAB] 180 tablet 3 Sig: TAKE 1 TABLET BY MOUTH TWICE A DAY Last seen 09/13/2023.Recall scheduled for 09/12/2024. Prescription(s) as above. Please process accordingly. Jasmyn Wood LPN documented [facility]11[facility] Hospital Discharge instructions Patient Education 03/06/2024 12:13:37 Monitored Anesthesia Care, Care After Monitored Anesthesia Care, Care After These instructions provide you with information about caring for yourself after your procedure. Your health care provider may also give you more specific instructions. Your treatment has been plannedaccording to current medical practices, but problems sometimes occur. Call your health care provider if you have any problems or questions after your procedure. What can I expect after the procedure? After your procedure, you may: Feel sleepy for several hours. Feel clumsy and have poor balance for several hours. Feel forgetful about what happened after the procedure. Have poor judgment for several hours. Feel nauseous or vomit. Have a sore throat if you had a breathing tube during the procedure. Follow these instructions at home: For at least 24 hours after the procedure: Have a responsible adult stay with you. It is important to have someone help care for you until youare awake and alert. Rest as needed. Do not: ?Participate in activities in which you could fall or become injured. ?Drive. ?Use heavy machinery. ?Drink alcohol. ?Take sleeping pills or medicines that cause drowsiness. ?Make important decisions or sign legal documents. ?Take care of children on your own. Eating and drinking Follow the diet that is recommended by your health care provider. If you vomit, drink water, juice, or soup when you can drink without vomiting. Make sure you have little or no nausea before eating solid foods. General instructions Take uqzv-una-uwouaxf and prescription medicines only as told by your health care provider. If you have sleep apnea, surgery and certain medicines can increase your risk for breathing problems. Follow instructions from your health care provider about wearing your sleep device: ?Anytime you are sleeping, including during daytime naps. ?While taking prescription pain medicines, sleeping medicines, or medicines that make you drowsy. If you smoke, do not smoke without supervision. Keep all follow-up visits as told by your health care provider. This is important. Contact a health care provider if: You keep feeling nauseous or you keep vomiting. You feel light-headed. You develop a rash. You have a fever. Get help right away if: You have trouble breathing. Summary For several hours after your procedure, you may feel sleepy and have poor judgment. Have a responsible adult stay with you for at least 24 hours or until you are awake and alert. This information is not intended to replace advice given to you by your health care provider. Make sure you discuss any questions you have with your health care provider. Document Released: 08/02/2016 Document Revised: 07/11/2018 Document Reviewed: 08/02/2016 [employer] Patient Education 2020 [employer]. 03/06/2024 12:13:32 9 - AO Minor Esophagogastroduodenoscopy (07/07) (CUSTOM) Esophagogastroduodenoscopy This is an endoscopic procedure (a procedure that uses a device like a flexible telescope) that allows your caregiver to view the upper stomach and small bowel. This test allows your caregiver to look at the esophagus. The esophagus carries food from your mouth to your stomach. They can also look at your duodenum. This is the first part of the small intestine that attaches to the stomach. This test is used to detect problems in the bowel such as ulcers and inflammation. MEANING OF TEST Your caregiver will go over the test results with you and discuss the importance and meaning of your results, as well as treatment options and the need for additional tests if necessary. OBTAINING THE TEST RESULTS Your caregiver s office will call you with the results of the test. POST SEDATION INSTRUCTIONS Rest at home today. Since your coordination may be impaired, be cautious on stairways, do not drive any vehicle or operate any heavy machinery, or use any sharp instruments for the remainder of the day. Do not drink any alcoholic beverages or make any major decisions for 24 hours. POST PROCEDURE INSTRUCTIONS Progress slowly with full liquids then resume previous diet and medications. Belching or passing of gas is to be expected. Notify the physician if you have severe chest pain, fever, or if difficulty when swallowing persists. 07/04/13 Custom Follow Up Care 02/23/2024 10:28:23 With:ENRIQUE BASS MD Address: [address] [phone] When: [facility] Evaluation + Plan noteExtracted from: Title:Clinical Document Author:ENRIQUE BASS Date:03/06/24 [place] ADMISSION HISTORY AN D PHYSICIAL CHIEF COMPLAINT: HISTORY OF PRESENT ILLNESS: REVIEW OF SYSTEMS: ACTIVE PROBLEMS: (44) Actinic keratosis (4709689494) Acute cystitis without hematuria (237755103) Afib (61460418) Anaphylaxis due to insect venom (3039493503) Blood in urine - hematuria (7569122631) Cataract (773009164) CKD (chronic kidney disease), stage III (1840968861) Coccyxdynia (3564347465) DDD (degenerative disc disease), lumbar (48146115) Family hx of aortic aneurysm (2520288549) Former smoker (48485552) GERD (gastroesophageal reflux disease) (380810923) Jasen's thyroiditis (30214191) Hernia, hiatal (852568210) Hx of spinal surgery (719079343) Hypercoagulable state due to atrial fibrillation (8363650669) Hyperparathyroidism (711962515) Hypochromic anemia (471890087) Hypothyroid (52001588) Immunity status testing (884048324) Immunization due (163247916) Knee osteoarthritis (055062463) Laceration of forehead (655106428) Macular degeneration (2438717380) Medicare annual wellness visit, subsequent (475922423) Need for hepatitis C screening test (834463086) Nephrolithiasis (878320464) Not currently working due to disabled status (502713402) Osteoporosis (487003680) Premature atrial complex (919528310) Preop examination (502871436) Right elbow pain (401045658) Right hand pain (997546274) Right shoulder pain (68296793) S/P ablation of atrial fibrillation (989466313) Screen for colon cancer (362113794) Screening due (312520035) Screening for AAA (abdominal aortic aneurysm) (158767480) Screening for breast cancer (522588898) Screening for cardiovascular condition (155405187) Screening for cervical cancer (6293198924) Skin tear of upper extremity (2689769859) Viral URI with cough (191205858) Vitamin D deficiency (58398803) MEDICATIONS: Active Inpt Meds: None Active PRN Meds: None One Time Meds: None Active IV Meds: Lactated Ringers Infusion 1,000 mL (LR 1,000 mL) Start: 03/06/24 11:09:00 EST, Rate: 50 mL/hr, 03/06/24 11:09:00 EST Sodium Chloride 0.9% intravenous solution 500 mL (0.9% NaCl 500 mL 500 mL) Start: 03/06/24 11:10:00 EST, Rate: 20 mL/hr, 03/06/24 11:10:00 EST ALLERGIES: (6) Bee Stings codeine cortisone Dakins Full Strength Solution Metal unspecified Tape FAMILY HISTORY: SOCIAL HISTORY: PHYSICAL EXAM: VITALS: [id number]U4MhxsGk(kg) 03/06 11:1336.6--055550IK49/11 70.0 24 Hr Tmax: 36.6 at 03/06 11:13 36 Hr Tmax: 36.6 at 03/06 11:13 Vital Signs are the last 5 in the past 48 hours. Weights display the last 5 within 7 days. Initial Wt: 03/06 70.0 kg 154 lb Current Wt: 03/06 70.0 kg 154 lb GENERAL: HEENT: CARDIOVASCULAR: RESPIRATORY: ABDOMEN: EXREMETIES: NEUROLOGICAL: PSYCHIATRIC: LABS: No 36hr Lab Data DIAGNOSTICS: IMPRESSION: PLAN: History and Physical Update I have examined the patient; reviewed the H&P and there are no changes to the H&P unless noted below. Future Appointments Appointment Date:03/08/2024 08:30:00 AM Scheduled Provider:SRIDHAR MONTERO DO Location:[facility] Appointment Type:PC OV Appointment Date:07/13/2024 08:30:00 AM Scheduled Provider:SRIDHAR MONTERO DO Location:[facility] Appointment Type:PC OV Future Scheduled Tests Laboratory* Urinalysis w/ C&S if Indicated 12/27/23 * Urinalysis w/ C&S if Indicated 01/26/24 * Thyroid Stimulating Hormone 01/20/24 * Free T4 01/20/24 * A1C Hemoglobin 01/20/24 * Complete Blood Count 01/20/24 * Lipid Profile 01/20/24 * Vitamin D Level 01/20/24 * Complete Metabolic Panel 01/20/24 [facility] 11[facility] Note Discharge Instructions Thank you for allowing [facility] to assist you with your healthcare needs. The following is importantdischarge information regarding your hospital visit. Your Care Team SRIDHAR MONTERO DO, Dr. What to do next Scheduled Follow-Up Appointments Appointment Type When With Where Contact Information StatusPC OV 03/08/2024 08:30 AM EST SRIDHAR MONTERO DO [address] [phone] Confirmed PC OV 07/13/2024 08:30 AM EDT SRIDHAR MONTERO DO [address] [phone] Confirmed Follow Up Appointments Follow Up with ENRIQUE BASS MD Where:[facility] [address] [place] [phone] Allergies Bee Stings Anaphylactic reaction Dakins Full Strength Solution Skin irritation Metal unspecified Unknown Tape Rash codeine Headache cortisone Flush Medications Please ask your primary doctor or pharmacist before taking any other medication not listed, including over the counter drugs, herbal medications, vitamins and or supplements as they may interact withyour home medications. What How Much When Why Instructions Last Dose Unchanged calcitriol (calcitriol 0.25 mcg oral capsule) 1 cap by mouth Wednesday / Wednesday / Wednesday Unchanged DME (DME MISCellaneous) See instructions Skin tear of right upper extremity dispense 100 2x3 inches telfa pads; dx S41.111A. Unchanged EPINEPHrine (EpiPen 2-Eze 0.3 mg injectable kit) 1 kit Intramuscular As Directed as needed for Allergic reaction Duration: 2 Doses dispense one 2 pack auto injector kit Unchanged ergocalciferol (Vitamin D2 1.25 mg (50,000 intl units) oral capsule) 1 cap by mouth Once a month Unchanged ibuprofen (Advil 200 mg oral tablet) See instructions tab(s) mg Oral q6hr Unchanged levothyroxine (Synthroid 112 mcg (0.112 mg) oral tablet) 1 tab(s) by mouth Once a day Unchanged liothyronine (liothyronine 25 mcg oral tablet) 1.5 tab(s) by mouth Every day Unchanged metoprolol (metoprolol tartrate 25 mg oral tablet) 1 tab(s) by mouth Two (2) times a day Unchanged pantoprazole (pantoprazole 40 mg oral enteric coated tablet) 1 tab(s) by mouth Once a day Duration: 90 Days Unchanged propafenone (propafenone 225 mg oral tablet) 1 tab(s) by mouth Every 8 hours Unchanged zoledronic acid (Reclast) See instructions mg Intravenous Yearly Please take this list to your next doctor s visit. Bring all medications you take, including over the counter medications, herbals and other supplements with you to your doctor s visit. Patients and families are reminded to discard old lists and to update any records with all medication providers or retail pharmacies. Education Materials Monitored Anesthesia Care, Care After These instructions provide you with information about caring for yourself after your procedure. Your health care provider may also give you more specific instructions. Your treatment has been plannedaccording to current medical practices, but problems sometimes occur. Call your health care provider if you have any problems or questions after your procedure. What can I expect after the procedure? After your procedure, you may: Feel sleepy for several hours. Feel clumsy and have poor balance for several hours. Feel forgetful about what happened after the procedure. Have poor judgment for several hours. Feel nauseous or vomit. Have a sore throat if you had a breathing tube during the procedure. Follow these instructions at home: For at least 24 hours after the procedure: Have a responsible adult stay with you. It is important to have someone help care for you until youare awake and alert. Rest as needed. Do not: ? Participate in activities in which you could fall or become injured. ? Drive. ? Use heavy machinery. ? Drink alcohol. ? Take sleeping pills or medicines that cause drowsiness. ? Make important decisions or sign legal documents. ? Take care of children on your own. Eating and drinking Follow the diet that is recommended by your health care provider. If you vomit, drink water, juice, or soup when you can drink without vomiting. Make sure you have little or no nausea before eating solid foods. General instructions Take ypxq-euj-zkbfmub and prescription medicines only as told by your health care provider. If you have sleep apnea, surgery and certain medicines can increase your risk for breathing problems. Follow instructions from your health care provider about wearing your sleep device: ? Anytime you are sleeping, including during daytime naps. ? While taking prescription pain medicines, sleeping medicines, or medicines that make you drowsy. If you smoke, do not smoke without supervision. Keep all follow-up visits as told by your health care provider. This is important. Contact a health care provider if: You keep feeling nauseous or you keep vomiting. You feel light-headed. You develop a rash. You have a fever. Get help right away if: You have trouble breathing. Summary For several hours after your procedure, you may feel sleepy and have poor judgment. Have a responsible adult stay with you for at least 24 hours or until you are awake and alert. This information is not intended to replace advice given to you by your health care provider. Make sure you discuss any questions you have with your health care provider. Document Released: 08/02/2016 Document Revised: 07/11/2018 Document Reviewed: 08/02/2016 [employer] Patient Education 2020 [employer] Esophagogastroduodenoscopy This is an endoscopic procedure (a procedure that uses a device like a flexible telescope) that allows your caregiver to view the upper stomach and small bowel. This test allows your caregiver to look at the esophagus. The esophagus carries food from your mouth to your stomach. They can also look at your duodenum. This is the first part of the small intestine that attaches to the stomach. This test is used to detect problems in the bowel such as ulcers and inflammation. MEANING OF TEST Your caregiver will go over the test results with you and discuss the importance and meaning of your results, as well as treatment options and the need for additional tests if necessary. OBTAINING THE TEST RESULTS Your caregiver s office will call you with the results of the test. POST SEDATION INSTRUCTIONS Rest at home today. Since your coordination may be impaired, be cautious on stairways, do not drive any vehicle or operate any heavy machinery, or use any sharp instruments for the remainder of the day. Do not drink any alcoholic beverages or make any major decisions for 24 hours. POST PROCEDURE INSTRUCTIONS Progress slowly with full liquids then resume previous diet and medications. Belching or passing of gas is to be expected. Notify the physician if you have severe chest pain, fever, or if difficulty when swallowing persists. 07/04/13 Custom Additional Information VACCINATE! IT SAVES LIVES! Members of the community who have not yet received the COVID-19 vaccine and would like to receive it can visit one of [facility] vaccine clinics. There are many vaccine clinic locations within the [facility]. For locations and available times, please visit [email or web address].[place].gov/. It is important to note that some COVID mobile vaccine clinics are held outdoors and may be canceled in rainy or stormy conditions. To learn more about pediatric vaccinations (ages 5-11), we invite you to visit the [facility] webpage. [email or web address]/[email or web address]-Glk stions.htmlTo learn more about the COVID-19 vaccine, we invite you to visit the CDC website for a list of frequently asked questions.https://www.cdc.gov/coronavirus/2019-ncov/vaccines/faq.html [facility] Patient Portal Access Instructions: Stay connected with your healthcare team and access your personal medical information anytime with the [employer] Patient Portal. Please follow the directions below to create your [employer] account: 1.Access the email account you provided upon registration to the hospital/physician office.2.Look for an invitation email from [facility].3.Open the email and access the invitation link: AcceptInvitation to [employer].4.Fill in the required kwok to create your account. To access your account, visit [employer]. Click the blue button labeled Access Patient Portal and then log in with the username and password that you created in the steps above. You will be able to view your test results, lab results, a summary of your visits, upcoming appointments and more. There is also a convenient messaging option where you can send secure messages to your [employer]. In addition, you will have the ability to download any documents or summaries to your computer and/or send the information securely to a physician. Remember that your healthcare information is confidential, so carefully consider who you will allowto register on the [facility] [employer] Patient Portal for access to your information. You can also access the [employer] Patient Portal on the [employer] lilia. Simply click on Patient Portal and then log into your account. If you would like to receive a full copy of your medical records, please contact the [facility] Medical Records Department by calling [phone], Wednesday through Wednesday between 8 a.m. and 4:30 p.m. HOW TO SAFELY DISPOSE OF PRESCRIPTION MEDICATIONS Please use one of the following methods to safely dispose of your unused medications. 1.Use a drug disposal kit: the drug disposal pouch allows you to safely discard your old and unuseddrugs. Ask your nurse to give you one when you are discharged.2.Visit a local take-back location: Many local pharmacies and police departments have programs that collect old and unwanted prescriptiondrugs. Call your local pharmacy or go to http://bit.ly/4I6Ss1g to find one close to you.3.Make use of household items: Use cat litter or old coffee grounds to dispose medications if other options arenot available. Mix your drugs with these household products, seal them in an airtight container andthrow it into the garbage. Call [facility]: [phone] to be sure your drugs can be disposed of in this way. Some medicines may require a different approach.4.Never flush your medications down the toilet. IF YOU HAVE BEEN PRESCRIBED AN OPIOID FOR PAIN If you have been prescribed an opioid (such as hydrocodone, oxycodone or morphine), it is critical to understand the possible side effects and risks of opioid pain medications. Even when taken as directed, opioids can have several side effects including: Tolerance, meaning you might need to take more of a medication for the same pain relief. Nausea, vomiting and/or constipation. Sleepiness, dizziness, dry mouth, confusion, depression or itching. Physical dependence, meaning you have withdrawal symptoms when a medication is stopped, can develop within a few days. KNOW YOUR RESPONSIBILITIES It is important to know exactly how much and how often to take the opioid pain medications you are prescribed. Never take opioids in higher amounts or more often than prescribed. Do not combine opioids with alcohol or other drugs that cause drowsiness, such as benzodiazepines, also known as benzos, including diazepam and alprazolam, muscle relaxants or sleep aids. Never sell or share prescription opioids. This is illegal. Store opioids in a secure place and out of reach of others (including children, family, friends and visitors). The last page of this document has been signed and retained as a CHART COPY. Signatures Patient Education Materials Monitored Anesthesia Care, Care After 9 - AO Minor Esophagogastroduodenoscopy (07/07) (CUSTOM) Medication Leaflets My discharge plan and instructions have been reviewed and explained to me and IYISEL CHERYL A understand my current condition and have read and understand these discharge instructions. I have received a written copy of the plan/instructions. If I have questions, I am aware that I should contact my doctor. Patient/Broiler Chef Or Cook Signature: Date/Time: Relationship to Patient: Witness Name/Signature: Date/Time: [facility] Anesthesiology Consult note Patient: BELLA MORILLO Age: 68 years Sex: Female : 1955 Associated Diagnoses: None Author: FLAKITO AWAD Assessment Postanesthesia assessment Vitals: Vital signs from flowsheet : Vital Signs 03/06/2024 11:55 EST Heart Rate Monitored 73 bpm bpm Respiratory Rate - Anes 13 br/min br/min Systolic Blood Pressure Non-Invasive 139 mmHg mmHg Diastolic Blood Pressure Non-Invasive 68 mmHg mmHg 03/06/2024 11:50 EST Respiratory Rate - Anes 18 br/min br/min Systolic Blood Pressure Non-Invasive 154 mmHg mmHg Diastolic Blood Pressure Non-Invasive 134 mmHg mmHg 03/06/2024 11:13 EST Temperature Temporal Artery 36.6 DegC Peripheral Pulse Rate 68 bpm Respiratory Rate 10 br/min Systolic Blood Pressure Non-Invasive 144 mmHg HI Diastolic Blood Pressure Non-Invasive 72 mmHg . Mental status: alert & oriented x 4. Respiratory function: lungs are clear to auscultation. Respiratory support: none. CV function: Normal rate. Cardiovascular support: none. Pain. Nausea status: see nursing documentation of medications. Postoperative hydration status: within normal limits. Digitally Signed by FLAKITO AWAD on 03/06/2024 12:01 PM [facility]11[facility]2024 Anesthesiology Consult note Patient: BELLA MORILLO Age: 68 years Sex: Female : 1955 Associated Diagnoses: None Author: FLAKITO AWAD Preoperative Information Time of last food or liquid consumption: 03/05/2024 18:15:00 Anesthesia history Patient's history: negative. Family's history: negative. Review of Systems Ear/Nose/Mouth/Throat: Negative except as documented in history of present illness. Respiratory: Negative except as documented in history of present illness. Cardiovascular: Negative except as documented in history of present illness. Gastrointestinal: Negative except as documented in history of present illness. Genitourinary: Negative except as documented in history of present illness. Endocrine: Negative except as documented in history of present illness. Musculoskeletal: Negative except as documented in history of present illness. Integumentary: Negative except as documented in history of present illness. Neurologic: Negative except as documented in history of present illness. Health Status Allergies: Allergic Reactions (Selected) Severity Not Documented Bee Stings- Anaphylactic reaction. Codeine- Headache. Cortisone- Flush. Dakins Full Strength Solution- Skin irritation. Metal unspecified- Unknown. Tape- Rash., Allergies (6) ActiveSeverityReaction Bee StingsAnaphylactic reaction TapeRash codeineHeadache cortisoneFlush Metal unspecifiedUnknown Dakins Full Strength SolutionSkin irritation Current medications: (Selected) Inpatient Medications Ordered 0.9% NaCl 500 mL 500 mL: 20 mL/hr, Intravenous LR 1,000 mL: 50 mL/hr, Intravenous Prescriptions Prescribed DME MISCellaneous: See Instructions, dispense 100 2x3 inches telfa pads; dx S41.111A., 100 EA, 1 Refill(s) EpiPen 2-Eze 0.3 mg injectable kit: 0.3 mg, 1 kit, Intramuscular, AsDirected, for 2 dose(s), dispense one 2 pack auto injector kit, PRN: Allergic reaction, 1 kit(s), 1 Refill(s) pantoprazole 40 mg oral enteric coated tablet: 40 mg, 1 tab(s), Oral, qDay, for 90 day(s), 90 tab(s), 3 Refill(s) Documented Medications Documented Advil 200 mg oral tablet: See Instructions, tab(s) mg Oral q6hr, 0 Refill(s) Reclast: See Instructions, mg Intravenous Yearly, 0 Refill(s) Synthroid 112 mcg (0.112 mg) oral tablet: 112 mcg, 1 tab(s), Oral, qDay, 30 tab(s), 0 Refill(s) Vitamin D2 1.25 mg (50,000 intl units) oral capsule: 50,000 International_Unit, 1 cap(s), Oral, qmonth, 4 cap(s), 0 Refill(s) calcitriol 0.25 mcg oral capsule: 0.25 mcg, 1 cap(s), Oral, Mon/Wed/Fri, 0 Refill(s) liothyronine 25 mcg oral tablet: 37.5 mcg, 1.5 tab(s), Oral, Daily, 0 Refill(s) metoprolol tartrate 25 mg oral tablet: 25 mg, 1 tab(s), Oral, BID, 60 tab(s), 0 Refill(s) propafenone 225 mg oral tablet: 225 mg, 1 tab(s), Oral, q8h, 90 tab(s), 0 Refill(s), Medications (2) Active Scheduled: (0) Continuous: (2) Lactated Ringers Infusion 1,000 mL 1,000 mL, Intravenous, 50 mL/hr Sodium Chloride 0.9% intravenous solution 500 mL 500 mL, Intravenous, 20 mL/hr PRN: (0) Problem list: Medical Actinic keratosis / SNOMED CT 6729248546 / Confirmed Acute cystitis without hematuria / SNOMED CT 593297523 / Confirmed Anaphylaxis due to insect venom / SNOMED CT 0755191693 / Confirmed Hypochromic anemia / SNOMED CT 513422374 / Confirmed Afib / SNOMED CT 33462873 / Confirmed Premature atrial complex / SNOMED CT 157215642 / Confirmed Blood in urine - hematuria / SNOMED CT 0180300778 / Confirmed Screening for cervical cancer / SNOMED CT 6368931164 / Confirmed Cataract / SNOMED CT 523486188 / Confirmed CKD (chronic kidney disease), stage III / SNOMED CT 0458772920 / Confirmed DDD (degenerative disc disease), lumbar / SNOMED CT 18627776 / Confirmed Macular degeneration / SNOMED CT 8415241933 / Confirmed Former smoker / SNOMED CT 63115537 / Confirmed Family hx of aortic aneurysm / SNOMED CT 2908177680 / Confirmed Not currently working due to disabled status / SNOMED CT 159957186 / Confirmed GERD (gastroesophageal reflux disease) / SNOMED CT 297783675 / Confirmed Hx of spinal surgery / SNOMED CT 000001423 / Confirmed S/P ablation of atrial fibrillation / SNOMED CT 002176838 / Confirmed Right hand pain / SNOMED CT 356099114 / Confirmed Jasen's thyroiditis / SNOMED CT 07322767 / Confirmed Hernia, hiatal / SNOMED CT 376040099 / Confirmed Hypercoagulable state due to atrial fibrillation / SNOMED CT 8013046299 / Confirmed Hyperparathyroidism / SNOMED CT 980583319 / Confirmed Hypothyroid / SNOMED CT 93609590 / Confirmed Immunization due / SNOMED CT 373600143 / Confirmed Nephrolithiasis / SNOMED CT 957928852 / Confirmed Laceration of forehead / SNOMED CT 127900526 / Confirmed Knee osteoarthritis / SNOMED CT 553529657 / Confirmed Osteoporosis / SNOMED CT 671296868 / Confirmed Coccyxdynia / SNOMED CT 9996960876 / Confirmed Right elbow pain / SNOMED CT 146283885 / Confirmed Preop examination / SNOMED CT 150762097 / Confirmed Medicare annual wellness visit, subsequent / SNOMED CT 302044502 / Confirmed Screening for AAA (abdominal aortic aneurysm) / SNOMED CT 843153067 / Confirmed Screening for cardiovascular condition / SNOMED CT 243015379 / Confirmed Immunity status testing / SNOMED CT 392286869 / Confirmed Screening for breast cancer / SNOMED CT 340227589 / Confirmed Screen for colon cancer / SNOMED CT 517800508 / Confirmed Screening due / SNOMED CT 998405870 / Confirmed Right shoulder pain / SNOMED CT 47612294 / Confirmed Skin tear of upper extremity / SNOMED CT 5896463274 / Confirmed Need for hepatitis C screening test / SNOMED CT 551433596 / Confirmed Viral URI with cough / SNOMED CT 716292260 / Confirmed Vitamin D deficiency / SNOMED CT 88520103 / Confirmed Canceled: Anemia / SNOMED CT 112374587 Canceled: At low risk for fall / SNOMED CT 9801548851 Canceled: BMI 24.0-24.9, adult / SNOMED CT 2836792764 Canceled: CKD (chronic kidney disease) stage 3, GFR 30-59 ml/min / SNOMED CT 9007630232 Canceled: Cough / SNOMED CT 35717967 Canceled: Decreased GFR / SNOMED CT 7218273326 Canceled: Influenza vaccine refused / SNOMED CT 958936934 Canceled: Overweight / SNOMED CT 593319078 Canceled: BMI 25.0-25.9,adult / SNOMED CT 2935092191 Canceled: Depression screen / SNOMED CT 482253743 Canceled: Encounter for screening involving social determinants of health (SDoH) / SNOMED CT 401119232 Canceled: Encounter to establish care / SNOMED CT 770342726 Canceled: Encounter for removal of sutures / SNOMED CT 818512823, Active Problems (44) Actinic keratosis Acute cystitis without hematuria Afib Anaphylaxis due to insect venom Blood in urine - hematuria Cataract CKD (chronic kidney disease), stage III Coccyxdynia DDD (degenerative disc disease), lumbar Family hx of aortic aneurysm Former smoker GERD (gastroesophageal reflux disease) Jasen's thyroiditis Hernia, hiatal Hx of spinal surgery Hypercoagulable state due to atrial fibrillation Hyperparathyroidism Hypochromic anemia Hypothyroid Immunity status testing Immunization due Knee osteoarthritis Laceration of forehead Macular degeneration Medicare annual wellness visit, subsequent Need for hepatitis C screening test Nephrolithiasis Not currently working due to disabled status Osteoporosis Premature atrial complex Preop examination Right elbow pain Right hand pain Right shoulder pain S/P ablation of atrial fibrillation Screen for colon cancer Screening due Screening for AAA (abdominal aortic aneurysm) Screening for breast cancer Screening for cardiovascular condition Screening for cervical cancer Skin tear of upper extremity Viral URI with cough Vitamin D deficiency Histories Past Medical History: No active or resolved past medical history items have been selected or recorded. Family History: Cancer Father Thyroid Mother Hypertension Father Heart disease Grandparent Gallstone Mother Osteoporosis Mother Arthritis Mother Grandparent Blood disorder Grandparent Depression Mother Osteoarthritis Mother Father Skin cancer Mother Diabetes Grandparent Colon cancer Mother Hyperlipidaemia Father Prostate cancer Father Procedure history: Total knee replacement ([id number]) on 06/24/2021 at 65 Years. Comments: 12/19/2021 10:36 LUCIEN - Christy Encarnacion LPN rt Total knee replacement ([id number]). Comments: 06/06/2021 10:18 Christy Moore LPN x3 2006 and 10/2019 Ablation ([id number]). Comments: 06/06/2021 10:19 Christy Moore LPN heart-x2 12/2005 and 04/2012 Knee ([id number]). Comments: 06/06/2021 10:18 Christy Moore LPN torn cartilage-1975 Ganglion cyst (553163602). Comments: 06/06/2021 10:19 Christy Moore LPN rt wrist Femur ([id number]). Comments: 06/06/2021 10:19 EST - Christy Encarnacion LUIS lt. shattered-01/2012 Discectomy of spine (6169624467). Social History: Social & Psychosocial Habits Alcohol 01/28/2024 Frequency: 1-2 times per week Substance Abuse 01/28/2024 Use: Never Tobacco 01/28/2024 Tobacco Use: Former smoker, quit more Comment: Quit at age 31 yrs - 12/23/2023 13:08 - KingjulianYeni LPN Home/Environment 01/28/2024 Other risks in environment: no current smoke exposure Nutrition/Health 01/28/2024 Caffeine intake amount: occasional Physical Examination Vital Signs 03/06/2024 11:13 EST Temperature Temporal Artery 36.6 DegC Peripheral Pulse Rate 68 bpm Respiratory Rate 10 br/min Systolic Blood Pressure Non-Invasive 144 mmHg HI Diastolic Blood Pressure Non-Invasive 72 mmHg Vital Signs (last 24 hrs) Last Charted Temp Mobpbrqg90.6 DegC (MAR 06:) SBPH 144 mmHg (MAR 06:) DBP72 mmHg (MAR 06:) Measurements from flowsheet : Measurements 03/06/2024 11:13 EST Height 168.5 cm Admission Weight 70 kg [place] Body Weight 60.08 kg Admission Body Mass Index 24.65 m2 03/06/2024 11:07 EST Height 168.5 cm [place] Body Weight 60.08 kg Pain assessment: Pain Assessment 03/06/2024 11:13 EST Primary Pain Location Knee Primary Pain Laterality Left Primary Pain Intensity 5 Pain Scale Type 0-10 Pain scale . General: Alert and oriented. Airway: Normal neck range of motion. Mallampati classification: II (soft palate, fauces, uvula visible). Head: Normocephalic. Dentition Evaluation: Intact, Own teeth. Neck: Full range of motion. Respiratory: Lungs are clear to auscultation. Cardiovascular: Normal rate. Heart Sounds: Normal. Gastrointestinal: Soft. Musculoskeletal Normal range of motion. Integumentary: Intact, Warm, Dry. Neurologic: Alert, Oriented. Review / Management Results review: No qualifying data available , Lab results 03/06/2024 11:48 EST [place] History and Physical 03/06/2024 11:40 EST SN - Proc - Anesthesia Type MAC SN - Proc - EBL 0 mL SN - Proc - Actual Procedure ESOPHAGOGASTRODUODENOSCOPY 03/06/2024 11:39 EST SN - PP - Body Position Lateral Right Side-up Standard Intra-op 03/06/2024 11:39 EST SN - GCD - Post-operative Diagnosis IRON DEFICIENCY ANEMIA SN - GCD - Case Level OPD Level 3 03/06/2024 11:39 EST SN - CAt - Case Attendee SN - CAt - Case Attendee SN - CAt - Case Attendee SN - CAt - Case Attendee SN - CAt - Case Attendee SN - CAt - Case Attendee SN - CAt - Case Attendee SN - CAt - Case Attendee SN - CAt - Role Performed Primary Surgeon SN - CAt - Role Performed GARAGE HELPER SN - CAt - Role Performed Second Language Tutor 1 SN - CAt - Role Performed Data Librarian 1 03/06/2024 11:28 EST Sodium Chloride 0.9% Begin Bag 500 mL mL 03/06/2024 11:27 EST Antecubital Left 22 gauge Peripheral IV Activity: Insert new site Peripheral IV Dressing Condition: Clean, Dry, Intact Peripheral IV Dressing Activity: Transparent dressing Peripheral IV Line Status/Patency: Continuous infusion Peripheral IV Site Condition: No complications Peripheral IV Number of Attempts: 2 03/06/2024 11:13 EST Height 168.5 cm Admission Weight 70 kg [place] Body Weight 60.08 kg Admission Body Mass Index 24.65 m2 Temperature Temporal Artery 36.6 DegC Peripheral Pulse Rate 68 bpm Respiratory Rate 10 br/min Systolic Blood Pressure Non-Invasive 144 mmHg HI Diastolic Blood Pressure Non-Invasive 72 mmHg Primary Pain Location Knee Primary Pain Laterality Left Primary Pain Intensity 5 Pain Scale Type 0-10 Pain scale Respirations Unlabored All Lobes Breath Sounds Clear Oxygen Therapy Room air Oxygen Saturation 98 % Abdomen Description Non-distended, Soft Bowel Sounds All Quadrants Present Skin Temperature Warm Skin Description Ricardo Characteristics of Speech Clear Level of Consciousness Alert Strength All Extremities Strong Affect/Behavior Appropriate, Calm, Cooperative Orientation Oriented x 4 Standard Safety ID band on, Allergy Band on, Call device within reach, Bed in low position, Wheels locked 03/06/2024 11:07 EST Designated Person #1 We May Share MELECIO Morillo [phone] Designated Person #1 Relationship Son Privacy Restrictions Requested None Height 168.5 cm [place] Body Weight 60.08 kg Status No, per patient Sensory Deficits None Infectious Disease Symptoms Patient states no symptoms Infectious Disease Recent Exposure No Alcohol and Drug Use No Employee of Institutional Living No Health Care Employee No History of Exposure to TB No History of Positive Chest X-Ray for TB No History of Positive TB Skin Test No Homeless No Known Immunosuppression No Recent Immigrant No Resident of Institutional Living No Bloody Sputum No Fatigue No Fever No Loss of Appetite No Night Sweats No Persistent Cough > 3 Weeks No Weight Loss No Barriers to Learning None evident Teaching Method Printed materials Preferred Spoken Language Venezuelan Preferred Written Language Venezuelan Patient's Current Physicians [place] Discharge To, Anticipated Home with family care Prev Test Positive/Diagnosis w/COVID-19 No Current Quarantine/Isolated any Illness No Any Contact with Sick Animals/Birds No Traveled Anywhere in Last 30 Days No No Personal Devices, Patient Valuables None Admission Note-Nursing Procedure/Therapy Intake 03/06/2024 11:02 EST IV Present Present Allergies Yes Consent Form Signed Yes Patient Dressed In Hospital gown History & Physical Update On Chart Yes History & Physical On Chart Yes Belongings At Bedside Glasses, Pants, Shirt, Shoes Personal Home Medications Received No home medications were brought in NPO Status Maintained Allergy Band on and Verified Yes Patient ID Band on and Verified Yes Implants Verified Yes Pacemaker/AICD Verified Yes Anesthesia Consent Signed Yes Last Fluid Intake 03/05/2024 18:15 Last Food Intake 03/05/2024 18:15 . Assessment and Plan [place] [employer] (ASA) physical status classification: Class II. Anesthetic Preoperative Plan Premedication: intravenous. Anesthetic technique: MAC. Induction: intravenously. Maintenance airway: Mask. Risks discussed: nausea, vomiting, headache, sore throat, dental injury, hypotension, allergic reaction, serious complications. Informed consent: signed by patient. Digitally Signed by FLAKITO AWAD on 03/06/2024 11:53 AM [facility] Note CORINNE ADMISSION HISTORY AND PHYSICIAL CHIEF COMPLAINT: HISTORY OF PRESENT ILLNESS: REVIEW OF SYSTEMS: ACTIVE PROBLEMS: (44) Actinic keratosis (3452845950) Acute cystitis without hematuria (715019073) Afib (71242607) Anaphylaxis due to insect venom (6469083530) Blood in urine - hematuria (5454808878) Cataract (431158283) CKD (chronic kidney disease), stage III (8305510343) Coccyxdynia (3659819674) DDD (degenerative disc disease), lumbar (46313613) Family hx of aortic aneurysm (2675534324) Former smoker (10672016) GERD (gastroesophageal reflux disease) (638380684) Jasen's thyroiditis (27851285) Hernia, hiatal (848832221) Hx of spinal surgery (219103684) Hypercoagulable state due to atrial fibrillation (7125647969) Hyperparathyroidism (513115874) Hypochromic anemia (354325782) Hypothyroid (04755125) Immunity status testing (697893907) Immunization due (381692863) Knee osteoarthritis (868735214) Laceration of forehead (111031197) Macular degeneration (0829478734) Medicare annual wellness visit, subsequent (897393337) Need for hepatitis C screening test (362148653) Nephrolithiasis (513095356) Not currently working due to disabled status (215960177) Osteoporosis (061642627) Premature atrial complex (856851387) Preop examination (598456899) Right elbow pain (286624743) Right hand pain (903630260) Right shoulder pain (04075647) S/P ablation of atrial fibrillation (643498942) Screen for colon cancer (304313569) Screening due (263764615) Screening for AAA (abdominal aortic aneurysm) (560735898) Screening for breast cancer (397756677) Screening for cardiovascular condition (815246506) Screening for cervical cancer (3350342336) Skin tear of upper extremity (1116544775) Viral URI with cough (877677127) Vitamin D deficiency (07786282) MEDICATIONS: Active Inpt Meds: None Active PRN Meds: None One Time Meds: None Active IV Meds: Lactated Ringers Infusion 1,000 mL (LR 1,000 mL) Start: 03/06/24 11:09:00 EST, Rate: 50 mL/hr, 03/06/24 11:09:00 EST Sodium Chloride 0.9% intravenous solution 500 mL (0.9% NaCl 500 mL 500 mL) Start: 03/06/24 11:10:00EST, Rate: 20 mL/hr, 03/06/24 11:10:00 EST ALLERGIES: (6) Bee Stings codeine cortisone Dakins Full Strength Solution Metal unspecified Tape FAMILY HISTORY: SOCIAL HISTORY: PHYSICAL EXAM: VITALS: GrnansQmwpSELywqfWKCpJ4BMQ7QrnsFm(kg) 03/06 11:1336.6--[id number]/11 70.0 24 Hr Tmax: 36.6 at 03/06 11:13 36 Hr Tmax: 36.6 at 03/06 11:13 Vital Signs are the last 5 in the past 48 hours. Weights display the last 5 within 7 days. Initial Wt: 03/06 70.0 kg 154 lb Current Wt: 03/06 70.0 kg 154 lb GENERAL: HEENT: CARDIOVASCULAR: RESPIRATORY: ABDOMEN: EXREMETIES: NEUROLOGICAL: PSYCHIATRIC: LABS: No 36hr Lab Data DIAGNOSTICS: IMPRESSION: PLAN: History and Physical Update I have examined the patient; reviewed the H&P and there are no changes to the H&P unless noted below. Digitally Signed by ENRIQUE BASS MD on 03/06/2024 11:49 AM [facility] Telephone encounter Note* Telephone Encounter - Veronica Jay LISW - 02/23/2024 11:33 AM EDT SOCIAL WORK FOLLOW UP NOTE: [facility] Pt noted on [facility] time treatment report. Pt has a non-oncology regimen. No social work followup indicated. JUANJO Gotti [facility]10-30-2024 Miscellaneous Notes* Telephone Encounter - Veronica Jay LISW - 02/23/2024 11:33 AM EDT SOCIAL WORK FOLLOW UP NOTE: [facility] Pt noted on [facility] 1st time treatment report. Pt has a non-oncology regimen. No social work followup indicated. JUANJO Gotti documented [facility]10-[facility] Telephone encounter Note * Telephone Encounter - Viviane Middleton LPN - 02/23/2024 7:56 AM EDT Patient's request for medication is as follows: Requested Prescriptions Pending Prescriptions Disp Refills Propafenone HCl (RYTHMOL) 225 mg tablet 270 tablet 3 Sig: TAKE 1 TABLET EVERY 8 HOURS Last seen 09/13/2023. Prescription(s) as above. Please process accordingly. Viviane Middleton LPN [facility]10-30-2024 Miscellaneous Notes* Telephone Encounter - Viviane Middleton LPN - 02/23/2024 7:56 AM EDT Patient's request for medication is as follows: Requested Prescriptions Pending Prescriptions Disp Refills Propafenone HCl (RYTHMOL) 225 mg tablet 270 tablet 3 Sig: TAKE 1 TABLET EVERY 8 HOURS Last seen 09/13/2023. Prescription(s) as above. Please process accordingly. Viviane Middleton LPN documented [facility] encounterNor[facility]10-[facility]-2024 Telephone encounter Note * Telephone Encounter - Janet Tai - 02/16/2024 11:05 AM EDT Patient called back and confirmed the 2 new appts are ok. Thank you [facility]10-23-2024 Miscellaneous Notes* Telephone Encounter - Janet Tai - 02/16/2024 11:05 AM EDT Patient called back and confirmed the 2 new appts are ok. Thank you * Telephone Encounter - Sweta Zavaleta - 02/16/2024 10:49 AM EDT I called and left a message fr [place] to call back to confirm that there has been a change in her iron treament. The treatment dose had to be changed and so she will need 5 doses instead of the 3 doses. This is due to a national iron shortage and the previous dose was not able to be obtained. Please confirm this with patient when she calls back , if there are any issues with the two new scheduledappointments we can reschedule them as she needs. The new appointments are 02/20 and 02/27. Thank you Sweta Henson documented [facility] encounter[facility]10-[facility]24 Telephone encounter Note * Telephone Encounter - Sweta Zavaleta - 02/16/2024 10:49 AM EDT I called and left a message Bella to call back to confirm that there has been a change in her iron treament. The treatment dose had to be changed and so she will need 5 doses instead of the 3 doses. This is due to a national iron shortage and the previous dose was not able to be obtained. Please confirm this with patient when she calls back , if there are any issues with the two new scheduledappointments we can reschedule them as she needs. The new appointments are 02/20 and 02/27. Thank you Sweta Henson [facility]10-18-2024 Telephone encounter Note* Telephone Encounter - Simeon Chris - 02/11/2024 1:25 PM EDT I reviewed the patient on the 1st-time treatment report. The patient does not have a cancer diagnosis or a chemo/radiation regimen. No further Financial Navigator intervention is needed at this time. [facility]10-18-2024 Miscellaneous Notes* Telephone Encounter - Simeon Chris - 02/11/2024 1:25 PM EDT I reviewed the patient on the 1st-time treatment report. The patient does not have a cancer diagnosis or a chemo/radiation regimen. No further Financial Navigator intervention is needed at this time. documented in [facility] encounterNor[facility]10-15-2024 Telephone encounter Note * Telephone Encounter - Audrey Barth - 02/08/2024 10:40 AM EDT Spoke with patient and scheduled. Audrey Barth [facility]10-15-2024 Miscellaneous Notes* Telephone Encounter - Audrey Barth - 02/08/2024 10:40 AM EDT Spoke with patient and scheduled. Audrey Barth * Telephone Encounter - Lindsey Zuniga - 02/03/2024 2:30 PM EDT Called patient to review labs Would recommend IV iron sucrose as pt was unable to tolerate PO iron due to GI side effects. Pt would prefer 300mg dose schedule. PSR: Can you please schedule for iv iron sucrose 300mg x3? Follow up OV with CBC, iron studies 8 to 12 weeks after last dose of IV iron. Lindsey Zuniga APRN.WAITER/WAITRESS TOURIST CLASS documented in this encounterNorwalk [facility]10-10-2024 Telephone encounter Note * Telephone Encounter - Lindsey Zuniga - 02/03/2024 2:30 PM EDT Called patient to review labs Would recommend IV iron sucrose as pt was unable to tolerate PO iron due to GI side effects. Pt would prefer 300mg dose schedule. PSR: Can you please schedule for iv iron sucrose 300mg x3? Follow up OV with CBC, iron studies 8 to 12 weeks after last dose of IV iron. Lindsey Zuniga APRN.WAITER/WAITRESS TOURIST CLASS [facility]10-08-2024 History of Present illness Narrative* Lindsey Zuniga - 02/01/2024 10:44 AM EDT Progress Note Bella Morillo 1955 Encounter date: 02/01/2024 HPI: Bella Morillo is a 68 year old female with PMHx of afib with PACs, jasen's, osteoporosis, knee replacement, CKD, and anemia. She presents as a referral from her PCP, Dr. Montero for DANITA withinability to tolerate PO iron. Ms. Morillo reports fatigue. Denies any current SOB, CP. She does have a hx of afib with PACs. Not currently on anticoagulation. She denies current overt s/s of bleeding. UTI in November with hematuria.No issues since then. Denies any new aches or pains. She has chronic knee pain 2/2 several knee replacements. She has met with ortho and was given several options for further treatment, including monitoring which she has chosen. Constant bowel issues. Seeing Dr. Hightower at the end of the month for a colonscopy. Last scope 2 years ago. No concerns. Had an EGD several years ago. Started PO iron BID in September, somewhat intermittent. Stopped taking about 2 weeks ago due to significant constipation and occasional upset stomach. Taking hungarian perfecto as needed. Currently trying to get thyroid under better control. Fluctuating TSH. Endorses dry skin, hair loss. Does not eat red meat, does not eat processed meats. Blood transfusion at time of knee surgery, (maybe 4 or five total) Fiber gummies, occasional tums, jose back and body occasionally. No regular NSAID or antiacid use. Mother of colon ca. 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 PAST MEDICAL HISTORY Diagnosis Date Anemia Atrial fibrillation (HCC) Atrophic vaginitis Dyspareunia in female Family history of breast cancer Family history of colon cancer offered Colaris Jona; pt needs to complete genetic counseling Family history of malignant melanoma Femur fracture (HCC) trip/fall from standing height High risk for hip fracture 05/2019 FRAX Hip 3% 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 Knee pain Macular degeneration Migraine with aura Osteopenia 2010 PAC (premature atrial contraction) Palpitations Pituitary disorder (HCC) prolactin elevation on reglan Postmenopausal osteoporosis 2015 Thyrotoxicosis without mention of goiter or other cause Uterine fibroid Vitamin D deficiency PAST SURGICAL HISTORY Procedure Laterality Date AFIB ABLATION/PULM VEIN ISOLATION 2005 pulmonary vein ablation for A fib AFIB ABLATION/PULM VEIN ISOLATION 2014 ARTHROTOMY W/MENISCUS REPAIR KNEE Left 1966 Open knee reconstruction ARTHRP KNE CONDYLE&PLATU MEDIAL&LAT COMPARTMENTS Left x2 ARTHRP KNE CONDYLE&PLATU MEDIAL&LAT COMPARTMENTS Left 11/08/2019 revision, Dr. Reyes COLONOSCOPY 2009 due in 5 years COLONOSCOPY 2020 wnl due in 3 years FINGER SURGERY HX Right trigger finger KNEE SURGERY HX Left x6 KNEE SURGERY HX Left 1997 LEG SURGERY HX femur fracture SPINE SURGERY HX 2012 TOTAL KNEE REPLACEMENT Right 2020 Current Outpatient Medications Medication Sig Dispense Refill liothyronine (CYTOMEL) 25 mcg tablet Take 25 mcg by mouth once daily. calcitriol (ROCALTROL) 0.25 mcg capsule TAKE 1 PILL BY MOUTH WEDNESDAY, WEDNESDAY, WEDNESDAY cephALEXin (KEFLEX) 250 mg capsule Take 250 mg by mouth two times a day. aspirin, enteric coated (ASPIRIN, ENTERIC COATED) 81 mg EC tablet Take 81 mg by mouth once daily. Propafenone HCl (RYTHMOL) 225 mg tablet TAKE 1 TABLET EVERY 8 HOURS 270 tablet 3 metoprolol tartrate, short acting, (LOPRESSOR) 25 mg tablet take 1 tablet by mouth twice a day 180 tablet 3 inulin (FIBER GUMMIES) 2 gram chew Take 1 Each by mouth as needed. pantoprazole DR (PROTONIX) 40 mg tablet Take 40 mg by mouth twice daily. vit A/vit C/vit E/zinc/copper (ICAPS AREDS ORAL) Take 1 tablet by mouth two times a day. cholecalciferol, Vitamin D3, (VITAMIN D3) 1,250 mcg (50,000 unit) cap capsule Take 50,000 Units by mouth once every month. ibuprofen-acetaminophen (ADVIL DUAL ACTION) 125-250 mg tab Take 2 tablets by mouth twice daily as needed. levothyroxine (SYNTHROID) 112 mcg tablet Take 1 tablet by mouth once daily. 90 tablet 3 EPINEPHrine (EPIPEN) 0.3 mg/0.3 mL auto-injector Inject 0.3 mg intramuscularly as needed. multivitamin tablet Take 1 tablet by mouth once daily. liothyronine (CYTOMEL) 5 mcg tablet Take 1 tablet by mouth twice daily. 180 tablet 0 No current facility-administered medications for this visit. ALLERGIES Allergen Reactions Bees Anaphylaxis Codeine Intolerance migraines Adhesive Tape (Marianne* Rash, Itching Adhesive Tape-Silic* Unknown Bee Sting Anaphylaxis Bee Venom Protein (* Anaphylaxis Cortisone Other: See Comments Turns red Dakin's [Sodium Hyp* Unknown Nickel Unknown Vanadium Unknown FAMILY HISTORY Problem Relation Age of Onset other (stomach cancer) Mother Colon Cancer Mother Hypothyroidism Mother Melanoma Mother 76 Arrythmias Mother Prostate Cancer Father Coronary Artery Disease Father Hypertension Father Hyperlipidemia Father Heart disease Father cardiac murmur Diabetes Maternal Grandmother Heart disease Paternal Grandmother quadruple bypass and of a heart attack at age 75 Breast Cancer Maternal Aunt 42 Lung Cancer Maternal Aunt Graves Disease Other Social History Tobacco Use Smoking status: Former Current packs/day: 0.00 Average packs/day: 0.5 packs/day for 10.0 years (5.0 ttl pk-yrs) Types: Cigarettes Start date: 08/17/1977 Quit date: 08/18/1987 Years since quittin.4 Smokeless tobacco: Never Vaping Use Vaping status: Never Used Substance Use Topics Alcohol use: Yes Alcohol/week: 3.0 - 4.0 standard drinks of alcohol Types: 3 - 4 Glasses of Wine (5oz) per week Comment: socially Drug use: Yes Types: Marijuana Review of Systems: Negative except as noted in HPI reviewed 02/01/2024 Physical Exam: BP 125/75 Pulse 64 Temp (Src) 97.7 (Temporal) Ht 5' 6.5 (1.69m) Wt 157 lb (71.2kg) SpO2 98% BMI 24.96 kg/(m^2). General: Age-appropriate well developed. Appears well. HEENT: Normocephalic, no sclera icterus, external ears normal, oral cavity clear. Neck: Supple, no thyroid nodules, no JVD. Chest: Clear bilaterally, no wheezes, not labored. Heart: Normal S1 and S2, no abnormal sounds Abdomen: Soft, nontender, nondistended, bowel sounds present, no organomegaly or mass, no rigidity. Extremities: No cyanosis, clubbing, gross deformities. L knee edema s/p 4 knee surgeries Neurological: Cranial nerves II through XII are intact bilaterally, strength normal in the upper and lower extremities, no focal deficits. Skin: Warm and dry with no rashes or ulcerations. Nodes: No palpable adenopathy in the cervical, supraclavicular, infraclavicular, or axillary regions. Hematologic: no bruising or petechiae. Psychiatric: Alert and oriented x3. Emotional well-being assessment was performed. Pt denies depression, distress, and or problems with coping or adjustment. Lab Results Component Value Date WBC 9.3 11/20/2019 HB 10.7 (L) 11/20/2019 MCV 87.7 11/20/2019 PLT 362 11/20/2019 Lab Results Component Value Date NA 139 06/14/2023 K 5.1 06/14/2023 CO2 27 06/14/2023 BUN 15 06/14/2023 CREAT 0.94 06/14/2023 TBILI 0.3 10/23/2019 TPROT 6.7 10/23/2019 ALB 4.0 10/23/2019 ALKPHOS 60 10/23/2019 ALT 16 10/23/2019 AST 23 10/23/2019 Assessment and Plan: Ms. Morillo is a pleasant 68 year old woman presenting as new iron deficiency anemia consult Anemia, iron deficiency - reviewed potential causes and treatment for anemia in detail with patient. - pt with hx of jasen's - lack of dietary intake, malabsorption - no overt s/s of bleeding - has upcoming GI appt at end of this month for scopes - was started on PO iron by PCP in September. Unable to tolerate due to GI upset, severe constipation. - will repeat labs today, CBC, CMP, iron studies - discussed potential need for IV iron pending results of iron studies. Pt acknowledged. Plan: will call with follow up Lindsey Zuniga APRN.WAITER/WAITRESS TOURIST CLASS I spent a total of 60 minutes on the date of the service which included preparing to see the patient, [id number] patient care, completing clinical documentation, obtaining and/or reviewing separately obtained history, performing a medically appropriate examination, and counseling and educating the patient/family/caregiver. Portions of this note including HPI, ROS, impression/plan may have been copied forward as to provide important historical information essential in contributing to medical decision making. Documentation has been reviewed and edited as necessary to support clinical decision making for today's visit and to reflect my own independent evaluation of this patient. documented in this encounterNorwalk [facility] Hospital08-25-2024 Instructions* Patient Instructions* Beverley Patrick PA-C - 12/19/2023 9:25 AM EDT ASSESSMENT/PLAN: 1. Dysuria - 2. Urinary frequency 3. Urinary urgency - UA - URINE CULTURE - NITROFURANTOIN MONOHYDRATE & MACROCRYSTAL 100 MG ORAL CAP - Urine culture sent to the lab. Will contact in 2-3 days with results. Increase fluids, rest. Tylenol or Motrin as needed for pain or fever. May use Cranberry juice or cranberry pills. Use OTC Azo as directed. Avoid constipation. Maintain regular bowel movements. May use OTC Miralax, Senna, or Ducolax. Practice good personal hygiene. Always wipe from front to back. Wear cotton underwear. Bacteria grows better in moist places. Cotton does not trap moisture. After intercourse, urinate as soon as possible. This will help flush out any bacteria that may havegone into the urinary tract. Change sanitary pads and tampons frequently during menstruation. Empty your bladder completely as soon as you feel the urge, or at least every three hours. Take entire course of antibiotics. If you get vaginal yeast infections while on antibiotics, use OTC yeast cream treatments as directed Call PCP if sx worsen or no better in 2-3 days. If symptoms worsen, or new symptoms develop go to ER. If you develop fever, chills, worsening back pain, worsening abdominal pain, or new symptoms- see your PCP immediately or go to ER. Follow up as needed. Barriers to Learning: None. Barriers to Learning: Age. Here with a parent. The patient is instructed to return or seek emergency treatment if symptoms become worse or with any acute change in condition. The patient verbalizes understanding and is in agreement with plan of care. Beverley Patrick PA-C documented in this encounterNorwalk [facility] Hospital08-25-2024 History of Present illness Narrative* Beverley Patrick PA-C - 12/19/2023 9:22 AM EDT 12/19/2023 Patient presents with: UTI: Burning, urgency, started yesterday. Took azo SUBJECTIVE: This is a 68 year old that is here today for possible UTI symptoms. The patient complains of dysuria, urinary urgency, and urinary frequency x1 day. She is taking Azo. The patient denies fever, chills, abominal pain, lower abdominal pressure, bladder spasms, back pain, or n/v. The patient denies any discharge, lesions, odor, change in sexual partners, or concern for STIs. Dysuria pain: yes out of 10 with 10 being the worst pain. The lower abdominal pain is 0 out of 10 with 10 being the worst pain. The back/flank pain is 0 out of 10 with 10 being the worst pain. Self-treatment:. Azo The severity is mild and the symptoms are not improving. The patient has not had similar symptoms in the last 3 months. The patient has not had an antibiotic in the last 3 months. LMP:. NA Reviewed meds, OTCs and supplements. Meds reviewed. Allergies and medications reviewed. Reviewed allergies, medications, social history, and past medical history. Barriers to learning: none. PAST MEDICAL HISTORY No date: Anemia No date: Atrial fibrillation ([facility]) No date: Atrophic vaginitis No date: Dyspareunia in female No date: Family history of breast cancer No date: Family history of colon cancer Comment: offered Colaris MyRisk; pt needs to complete genetic counseling No date: Family history of malignant melanoma No date: Femur fracture ([facility]) Comment: trip/fall from standing height 05/2019: High risk for hip fracture Comment: FRAX Hip 3% No date: 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 No date: Knee pain No date: Macular degeneration No date: Migraine with aura 2011: Osteopenia No date: PAC (premature atrial contraction) No date: Palpitations No date: 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 Propafenone HCl (RYTHMOL) 225 mg tablet TAKE 1 TABLET EVERY 8 HOURS metoprolol tartrate, short acting, (LOPRESSOR) 25 mg tablet take 1 tablet by mouth twice a day inulin (FIBER GUMMIES) 2 gram chew Take by mouth. pantoprazole DR (PROTONIX) 40 mg tablet Take 40 mg by mouth twice daily. liothyronine (CYTOMEL) 5 mcg tablet Take 1 tablet by mouth twice daily. vit A/vit C/vit E/zinc/copper (ICAPS AREDS ORAL) Take by mouth. cholecalciferol, Vitamin D3, (VITAMIN D3) 1,250 mcg (50,000 unit) cap capsule Take by mouth. levothyroxine (SYNTHROID) 112 mcg tablet Take 1 tablet by mouth once daily. EPINEPHrine (EPIPEN) 0.3 mg/0.3 mL auto-injector EpiPen 0.3 mg/0.3 mL (1:1,000) IM Injector multivitamin tablet Take 1 tablet by mouth once daily. ibuprofen-acetaminophen (ADVIL DUAL ACTION) 125-250 mg tab Take 2 tablets by mouth twice daily as needed. No current facility-administered medications for this visit. Medications and allergies reviewed by this provider. SOCIAL HISTORY Social History Tobacco Use Smoking status: Former Current packs/day: 0.00 Average packs/day: 0.5 packs/day for 10.0 years (5.0 ttl pk-yrs) Types: Cigarettes Start date: 08/17/1977 Quit date: 08/18/1987 Years since quittin.3 Smokeless tobacco: Never Vaping Use Vaping status: Never Used Substance Use Topics Alcohol use: Yes Alcohol/week: 3.0 - 4.0 standard drinks of alcohol Types: 3 - 4 Glasses of Wine (5oz) per week Comment: socially Drug use: Yes Types: Marijuana REVIEW OF SYSTEMS ROS: constitutional-neg, heent-neg, heart-neg, respiratory-neg, GI-neg, - concern for UTI, skin-neg, lymph-neg, neuro-neg, psych-neg- All systems neg except as noted above in HPI. OBJECTIVE: BP 136/67 Pulse 67 Temp 36.3 C (97.3 F) Resp 16 Wt 71.2 kg (156 lb 13.7 oz) SpO2 99% BMI 24.57 kg/m . Vital signs reviewed by this provider. Physical Exam Vitals reviewed. Constitutional: General: She is not in acute distress. Appearance: Normal appearance. She is well-developed and normal weight. She is not ill-appearing, toxic-appearing or diaphoretic. Cardiovascular: Rate and Rhythm: Normal rate and regular rhythm. Heart sounds: Normal heart sounds. Pulmonary: Effort: Pulmonary effort is normal. Breath sounds: Normal breath sounds and air entry. Abdominal: General: Abdomen is flat. Bowel sounds are normal. Palpations: Abdomen is soft. Tenderness: There is no abdominal tenderness. There is no right CVA tenderness, left CVA tenderness, guarding or rebound. Neurological: Mental Status: She is alert. Psychiatric: Behavior: Behavior is cooperative. Taking Azo Latest Ref Rng 12/19/2023 GLUCOSE UA (POCT) Negative mg/dL 100 ! BILIRUBIN UA (POCT) Negative Negative KETONE UA (POCT) Negative mg/dL 15 ! SPECIFIC GRAVITY UA (POCT) 1.005 - 1.030 1.020 HEMOGLOBIN/BLOOD UA (POCT) Negative Trace-intact ! PH UA (POCT) 4.5 - 8.0 6.0 PROTEIN UA (POCT) Negative mg/dL 30 ! UROBILINOGEN UA (POCT) Normal E.U./dL 1.0 NITRITE UA (POCT) Negative Positive ! LEUKOCYTES UA (POCT) Negative Moderate ! COLOR UA (POCT) Dark yellow CLARITY UA (POCT) Clear ASSESSMENT/PLAN: 1. Dysuria - ICD9: 788.1, ICD10: R30.0 (primary diagnosis) 2. Urinary frequency - ICD9: 788.41, ICD10: R35.0 3. Urinary urgency - ICD9: 788.63, ICD10: R39.15 - UA- taking Azo - URINE CULTURE - NITROFURANTOIN MONOHYDRATE & MACROCRYSTAL 100 MG ORAL CAP - Urine culture sent to the lab. Will contact in 2-3 days with results. Increase fluids, rest. Tylenol or Motrin as needed for pain or fever. May use Cranberry juice or cranberry pills. Use OTC Azo as directed. Avoid constipation. Maintain regular bowel movements. May use OTC Miralax, Senna, or Ducolax. Practice good personal hygiene. Always wipe from front to back. Wear cotton underwear. Bacteria grows better in moist places. Cotton does not trap moisture. After intercourse, urinate as soon as possible. This will help flush out any bacteria that may havegone into the urinary tract. Change sanitary pads and tampons frequently during menstruation. Empty your bladder completely as soon as you feel the urge, or at least every three hours. Take entire course of antibiotics. If you get vaginal yeast infections while on antibiotics, use OTC yeast cream treatments as directed Call PCP if sx worsen or no better in 2-3 days. If symptoms worsen, or new symptoms develop go to ER. If you develop fever, chills, worsening back pain, worsening abdominal pain, or new symptoms- see your PCP immediately or go to ER. Follow up as needed. Barriers to Learning: None. Barriers to Learning: Age. Here with a parent. The patient is instructed to return or seek emergency treatment if symptoms become worse or with any acute change in condition. The patient verbalizes understanding and is in agreement with plan of care. Beverley Patrick PA-C Medical Decision Making: Problems: Moderate: Acute illness with systemic symptoms Data: Unique test(s) ordered: 2 Risk: Low: Low risk from testing/treatment Moderate: Drug management Medical Decision Making Level: 4 - Moderate I spent a total of 20 minutes on the date of the service which included preparing to see the patient, [id number] patient care, completing clinical documentation, performing a medically appropriate examination, counseling and educating the patient/family/caregiver, ordering medications, tests, or p rocedures, and communicating results to the patient/family/caregiver. documented in this encounterNorwalk [facility]05-20-2024 History of Present illness Narrative* Chi Zamora MD - 09/13/2023 1:21 PM EDT Images from the original note were not included. Heart and Vascular [facility] SECTION OF CARDIAC PACING and ELECTROPHYSIOLOGY OUTPATIENT VISIT DATE September 13, 2023 OUTPATIENT VISIT TYPE ESTABLISHED PRIMARY CARE PHYSICIAN: Sridhar Montero IV [address] [place] [address] HISTORY OF PRESENT ILLNESS: Prior history, edited as needed: 68 year female with history of PAF, s/p catheter ablation approximately 25 years ago and repeat radiofrequency ablation at [facility] in 2012, has been maintained on low-dose propafenone for symptomatic PACs, HOL3-EC4-[id number] score of 1 for gender only, not anticoagulated, developed an episode of atrial fibrillation in early 2018, converted spontaneously. That was the first symptomatic episode of atrial fibrillation in the last 6 years. Since then her propafenone was increased to 225 mg 3 times a day. She was continued on metoprolol as well. Her ablation was performed in April 2012. Achieving electrical isolation of the left superior andleft pulmonary veins required extensive ablation of the region area between left atrial appendage and the veins. 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 Interval history: Bella presents for follow-up. She has been feeling well, palpitation, dyspnea, or dizziness. She remains on propafenone with no obvious complications. She is contemplating another orthopedic surgery. Recent 14-day event monitor demonstrated sinus rhythm with infrequent PACs and no sustained arrhythmia. Echocardiogram showed normal LV systolic function, no significant LVH or valve issues. ECG today shows sinus rhythm at 60 bpm with normal intervals. 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 Propafenone HCl (RYTHMOL) 225 mg tablet TAKE 1 TABLET EVERY 8 HOURS metoprolol tartrate, short acting, (LOPRESSOR) 25 mg tablet take 1 tablet by mouth twice a day inulin (FIBER GUMMIES) 2 gram chew Take by mouth. pantoprazole DR (PROTONIX) 40 mg tablet Take 40 mg by mouth twice daily. liothyronine (CYTOMEL) 5 mcg tablet Take 1 tablet by mouth twice daily. vit A/vit C/vit E/zinc/copper (ICAPS AREDS ORAL) Take by mouth. cholecalciferol, Vitamin D3, (VITAMIN D3) 1,250 mcg (50,000 unit) cap capsule Take by mouth. levothyroxine (SYNTHROID) 112 mcg tablet Take 1 tablet by mouth once daily. EPINEPHrine (EPIPEN) 0.3 mg/0.3 mL auto-injector EpiPen 0.3 mg/0.3 mL (1:1,000) IM Injector multivitamin tablet Take 1 tablet by mouth once daily. ibuprofen-acetaminophen (ADVIL DUAL ACTION) 125-250 mg tab Take 2 tablets by mouth twice daily as needed. Review of Systems Constitutional: Negative for fatigue. Respiratory: Negative for shortness of breath. Cardiovascular: Negative for chest pain and palpitations. Musculoskeletal: Positive for arthralgias. Neurological: Negative for syncope. Psychiatric/Behavioral: The patient is not nervous/anxious. PHYSICAL EXAMINATION: BP 118/73 (BP Site: Left Arm, BP Position: Sitting, BP Cuff Size: Large Adult) Wt 170 lb 3.2 oz (77.2 kg) SpO2 97% BMI 26.66 kg/m BP w/Orthostatic Vitals Date and Time Orthostatic BP Orthostatic Pulse BP Pulse BP Position BP Site BP Cuff Size 09/13/23 1251 -- -- 118/73 -- Sitting Left Arm Large Adult Physical Exam Constitutional: Appearance: Normal appearance. HENT: Head: Normocephalic and atraumatic. Eyes: Conjunctiva/sclera: Conjunctivae normal. Pulmonary: Effort: Pulmonary effort is normal. No respiratory distress. Breath sounds: No stridor. Skin: General: Skin is dry. Coloration: Skin is not pale. Neurological: Mental Status: She is alert and oriented to person, place, and time. Psychiatric: Mood and Affect: Mood normal. I have personally reviewed the Electrocardiogram. Assessment PLAN AND RECOMMENDATIONS: ASSESSMENT/PLAN: 1. Paroxysmal atrial fibrillation (HCC) - ICD9: 427.31, ICD10: I48.0 (primary diagnosis) Status post remote catheter ablation, maintains sinus rhythm, on propafenone for PACs - ECG B/O W INTERP (MED OFFICE) 2. 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 PAC (premature atrial contraction) - ICD9: 427.61, ICD10: I49.1 Effectively suppressed with class Ic agent Chi Zamora MD CONTACT INFORMATION: Chi Zamora MD documented in this encounterNorwalk [facility] Hospital03-18-2024 Miscellaneous Notes* Telephone Encounter - Viviane Middleton LPN - 07/12/2023 2:14 PM EDT Spoke with patient about test results and recommendation to continue metoprolol and follow up with Dr. Zamora in August, as scheduled. Patient verbalizes understanding and is agreeable. Viviane Middleton LPN * Telephone Encounter - Lilia Martinez APRN.CNP - 07/12/2023 2:10 PM EDT Reviewed patch monitor worn 06/21/2023 - 07/01/2023, primary rhythm was sinus rhythm, average heart rate 63 bpm. Infrequent PACs, burden 0.08%, 22 SVT events, longest event 12 beats in duration, continue metoprolol and follow-up with Dr. Zamora in August, as scheduled. Lilia Martinez APRN.POOJA documented in this encounterNorwalk [facility] Hospital02-21-2024 Miscellaneous Notes* Telephone Encounter - Keli House RN - 06/16/2023 8:22 AM EST Spoke with pt. Notified of test results and Twyla's recommendations. Pt voices understanding. Keli House RN * Telephone Encounter - Keli House RN - 06/15/2023 8:03 AM EST Left message on voicemail requesting pt return call for lab results. Office phone number provided. Keli House RN * Telephone Encounter - Paola Crawley LPN - 06/15/2023 7:19 AM EST ----- Message from Lilia Martinez APRN.WAITER/WAITRESS TOURIST CLASS sent at 06/15/2023 7:16 AM EST ----- Notify patient that results look good, her potassium was 5.1. Continue with current plan of care. Thank you. Lilia Martinez APRN.WAITER/WAITRESS TOURIST CLASS documented in this encounterNorwalk [facility] Hospital02-19-2024 Miscellaneous Notes* Telephone Encounter - Viviane Middleton LPN - 06/14/2023 3:17 PM EST Spoke with patient about test results and recommendation to continue current plan of care. Patient verbalizes understanding and is agreeable. Viviane Middleton LPN * Telephone Encounter - Viviane Middleton LPN - 06/14/2023 3:16 PM EST ----- Message from Lilia Martinez APRN.WAITER/WAITRESS TOURIST CLASS sent at 06/14/2023 3:13 PM EST ----- Notify patient that results of echocardiogram look good, LVEF 60%, no wall motion abnormalities, normal biatrial size, no significant valvular abnormalities. Continue with current plan of care. Thankyou. Lilia Martinez APRN.WAITER/WAITRESS TOURIST CLASS documented in this encounterNorwalk Memorial Hospital02-19-2024 Miscellaneous Notes* Patient Education - Cecilia Perez RN - 06/14/2023 2:00 PM EST Patient educated on 14 day patch monitor, and verbalizes understanding. documented in this encounterNorwalk [facility] Hospital02-19-2024 Miscellaneous Notes* Result Encounter Note - Lilia Martinez APRN.CNP - 06/14/2023 1:00 PM EST Notify patient that results of echocardiogram look good, LVEF 60%, no wall motion abnormalities, normal biatrial size, no significant valvular abnormalities. Continue with current plan of care. Thankyou. Lilia Martinez APRN.WAITER/WAITRESS TOURIST CLASS * Addendum Note - Elena Oropeza - 06/14/2023 1:00 PM ESTEncounter addended by: Elena Oropeza on: 06/14/2023 2:12 PM Actions taken: Pharmacy for encounter modified documented in this encounterNorwalk Memorial Hospital02-14-2024 Miscellaneous Notes* Letter - Coordinator, Mammography - 06/09/2023 12:31 PM EST [address] [address] June 09, 2023 PID: [id number] Bella LucianoJames Morillo [address] [place] [address] Dear Ms. Morillo, We are pleased to inform you that the results of your recent breast imaging exam on 06/08/2023 are normal. Your mammogram demonstrates that you have dense breast tissue, which could hide abnormalities. Dense breast tissue, in and of itself, is a relatively common condition. Therefore, this information is not provided to cause undue concern; rather, it is to raise your awareness and promote discussion with your health care provider regarding the presence of dense breast tissue in addition to other riskfactors. Early detection of cancer is very important. We also understand recommendations regarding breast cancer screening are controversial. Please discuss with your primary care provider which strategy is best for you and whether a mammogram is right for you. Your imaging studies and report will be [facility] as part of your permanent medical record and are available for your continuing care. Thank you for allowing us to help in meeting your health care needs. Sincerely, Dr. Angel Interpreting Radiologist [facility] (Normal over 40) documented in this encounterNorwalk Memorial Hospital02-13-2024 History of Present illness Narrative* Namrata Young RT(R) - 06/08/2023 11:00 AM EST Radiology Service Progress Note PATIENT NAME: Bella Morillo DATE OF SERVICE: June 08, 2023 TIME: 10:47 AM PATIENT IDENTITY VERIFICATION COMPLETED USING TWO (2) IDENTIFIERS: Name and Date of confirmedby patient verbally. FALL SCREENING: Has the patient had 2 falls in the last year or 1 fall with injury or currently using an Ambulatory Assistive Device (Walker, Cane, Wheelchair, Crutches, etc.)? No PATIENT GENDER DATA: Female. status: : No status: NO. PATIENT RELEVANT IMPLANT DATA REVIEWED: Yes PATIENT PRESENTS WITH AN IMPLANTABLE OR ATTACHED CUPOLA HOIST OPERATOR: No RADIOLOGY DEPARTMENT: Mammography PERIPHERAL IV DATA: Not applicable SIGNED BY: RT Juju(R) June 08, 2023 10:47 AM documented in this encounterNor[facility]02-[facility]24 Instructions* Patient Instructions* Lilia Martinez APRN.WAITER/WAITRESS TOURIST CLASS - 05/28/2023 1:48 PM EST Atrial Fibrillation What is atrial fibrillation? Atrial fibrillation (also called A-fib) is a fast or irregular heartbeat that starts in the upper chambers of the heart. The abnormal heartbeat affects the ability of the heart to pump blood to the rest of the body. What is the cause? An electrical signal in your heart starts each heartbeat, causing the heart muscle to squeeze (contract). Normally, this signal starts in the upper right chamber of the heart (the right atrium) at a place called the sinus node. The signal then follows normal pathways to the upper left atrium and tothe lower chambers of the heart (the ventricles). When you have atrial fibrillation, electrical signals don t start in the normal place in the right atrium and don t travel normally. This can cause the upper chambers of the heart (atria) to beat very fast and not in a normal pattern. Common causes of heart rhythm problems are conditions that damage the heart, like coronary artery disease, heart attack, or heart failure. Problems with the heart valves are another common cause. The heart has 4 valves that open and closewith each heartbeat to help blood flow in the right direction through the heart. Other causes of atrial fibrillation include: Health problems, such as a stroke, lung disease, diabetes, overactive thyroid gland, or high blood pressure Abuse of alcohol or drugs, such as cocaine Sometimes no cause can be found. What are the symptoms? Some people don t have any symptoms. When atrial fibrillation does cause symptoms, the most common ones are: Feeling like your heart is beating too fast or too hard or skipping beats or fluttering Feeling tired or weak all the time Symptoms that are more serious include: Chest pain Trouble breathing Lightheadedness or dizziness confusion How is it diagnosed? Your healthcare provider will ask about your symptoms and medical history and examine you. Tests may include: An ECG (also called an EKG), which measures and records your heartbeat. You may have an ECG while you are resting or while you exercise on a treadmill. You may also be asked to wear a small portable ECG monitor for a few days or sometimes a couple weeks. Blood tests An echocardiogram, which uses sound waves (ultrasound) to show the structures of the heart, like the valves How is it treated? The goal of treatment is to help the heart keep a normal rhythm. Your treatment depends on the cause of the atrial fibrillation, how often you have symptoms, and the severity of your symptoms. If you have no symptoms, or your symptoms are fairly mild, you may not need treatment. For some people atrial fibrillation lasts just a short time and the heart goes back to a normal rhythm on its own. If you keep having spells of atrial fibrillation, treatment may help keep you from having so manyspells. If a health problem like a leaky heart valve is causing the atrial fibrillation, treating the health problem may also treat the fast or irregular heartbeat. Other possible treatments are: Medicine: Your provider may prescribe medicine to slow or restore a normal heart rate and rhythm. You may also need medicine to prevent blood clots because when the heart beats irregularly, some of the blood can stay in the upper chambers too long. This makes it easier for blood clots to form, increasing your risk of having a stroke or heart attack. Electrical cardioversion: First, you will be given medicine called anesthesia to keep you from feeling pain during the procedure. Then your chest will be given an electrical shock. The electrical shock should make your heart start beating normally again. You may need medicine to keep your heart rhythm normal after this procedure. Ablation: Ablation is a procedure that uses a small tube called a catheter to deliver energy to theinside of the heart. The energy (usually radio waves) scars small areas of heart tissue. The scars block abnormal electrical pathways and help you have a normal heart rhythm. With some types of ablation treatment, you will also need a pacemaker. A pacemaker is an electronic device put under the skin of your chest to help control the heartbeat. How can I take care of myself? Take your medicines as prescribed. Keep your appointments for follow-up blood tests. Make sure your healthcare provider knows about changes in your diet or medical condition. Your provider also needs to know about all prescription and nonprescription medicines, herbs, or supplements that you are taking. Some medicines may interact with your heart medicine or increase your risk for atrial fibrillation. If you want to drink alcohol, ask your provider how much is safe for you to drink. Follow your healthcare provider's instructions. Ask your provider: ?How and when you will hear your test results ?How long it will take to recover ?What activities you should avoid and when you can return to your normal activities ?How to take care of yourself at home ?What symptoms or problems you should watch for and what to do if you have them Make sure you know when you should come back for a checkup. How can I help prevent atrial fibrillation? The best prevention is to have a heart-healthy lifestyle. Keep a healthy weight. Eat a healthy diet that is low in sodium and saturated and trans fat. Stay fit with the right kind of exercise for you. Decrease stress. Don t smoke. Limit your use of alcohol. If you have heart disease or high blood pressure, follow your healthcare provider's instructions for treatment. Copyright 2014 [employer] and/or one of its subsidiaries. All rights reserved. documented in this encounterNorwalk [facility] Hospital02-02-2024 History of Present illness Narrative* Lilia Martinez APRN.CNP - 05/28/2023 1:30 PM EST Images from the original note were not included. [facility] General Cardiology Electrophysiology PRIMARY CARE PHYSICIAN: Sridhar Montero IV [address] [place] [address] [place] [address] CHIEF COMPLAINT: Cardiovascular medicine follow-up for arrhythmia. HISTORY OF PRESENT ILLNESS: Ms. Morillo is a 67 year old female who presents today for follow-up regarding arrhythmia. The patient has a history of highly symptomatic paroxysmal atrial fibrillation, s/p catheter ablation approximately 20 years ago and repeat radiofrequency catheter ablation at [facility] in 2012, has been maintained on low- dose propafenone for symptomatic PACs. She has not anticoagulated as her [id number] scoreis 1 for female gender however she turned 67 and her TQG2LM5- VASc score is now a 2. She developed an episode of atrial fibrillation in early 2018, converted spontaneously, that was the first symptomatic episode of atrial fibrillation in about 6 years. Since then, the propafenone was increased to 225 mg 3 times daily, she has been continued on metoprolol as well. She last followed up with Dr. Zamora May/2022, reported doing well at that time, and was recommended to follow-up in 1 year. Interval History: The patient reports she has been experiencing atrial fibrillation about 4-5 times/week, with the longest episode lasting about 2 days, frequency has been increased for at least the last 6 months, during the episodes she experiences palpitations, pounding sensation in her chest, and takes her breath away. She does have a Kardia device, I reviewed the tracings which look like sinus rhythm with frequent PACs. She states recently she had labs checked at her PCP and her potassium was reportedly 5.7, she was instructed to modify her diet and avoid/minimize potassium rich foods. She also tells me in December, she lost her sense of taste and smell and had symptoms of viral ill ness, she tested twice for COVID, and both results were negative. She denies chest discomfort, lightheadedness, dizziness, near-syncope or syncope. She is very active, states she is not limited in her activities, she does maintain her 5 acre property. 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 Knee pain Macular degeneration Migraine with aura Osteopenia 2010 PAC (premature atrial contraction) Palpitations Pituitary disorder (HCC) prolactin elevation on reglan Postmenopausal osteoporosis 2015 Thyrotoxicosis without mention of goiter or other cause Uterine fibroid Vitamin D deficiency PAST SURGICAL HISTORY Procedure Laterality Date AFIB ABLATION/PULM VEIN ISOLATION 2006 pulmonary vein ablation for A fib AFIB ABLATION/PULM VEIN ISOLATION 2014 ARTHROTOMY W/MENISCUS REPAIR KNEE Left 1966 Open knee reconstruction ARTHRP KNE CONDYLE&PLATU MEDIAL&LAT COMPARTMENTS Left x2 ARTHRP KNE CONDYLE&PLATU MEDIAL&LAT COMPARTMENTS Left 11/08/2019 revision, Dr. Reyes COLONOSCOPY 2008 due in 5 years COLONOSCOPY 2020 wnl due in 3 years FINGER SURGERY HX Right trigger finger KNEE SURGERY HX Left x6 KNEE SURGERY HX Left 1997 LEG SURGERY HX femur fracture SPINE SURGERY HX 2011 Social History Tobacco Use Smoking status: Former Packs/day: 0.50 Years: 10.00 Additional pack years: 0.00 Total pack years: 5.00 Types: Cigarettes Quit date: 08/18/1987 Years since quittin.8 Smokeless tobacco: Never Vaping Use Vaping Use: Never used Substance Use Topics Alcohol use: Yes Alcohol/week: 3.0 - 4.0 standard drinks of alcohol Types: 3 - 4 Glasses of Wine (5oz) per week Comment: socially Drug use: Yes Types: Marijuana Family History Problem Relation Age of Onset other (stomach cancer) Mother Colon Cancer Mother Hypothyroidism Mother Melanoma Mother 76 Arrythmias Mother Prostate Cancer Father Coronary Artery Disease Father Hypertension Father Hyperlipidemia Father Heart disease Father cardiac murmur Diabetes Maternal Grandmother Heart disease Paternal Grandmother quadruple bypass and of a heart attack at age 75 Breast Cancer Maternal Aunt 42 other (liver) Maternal Aunt Graves Disease Other ALLERGIES Allergen Reactions Bees Anaphylaxis Codeine Intolerance migraines Adhesive Tape (Marianne* Rash, Itching Adhesive Tape-Silic* Unknown Bee Sting Anaphylaxis Bee Venom Protein (* Anaphylaxis Cortisone Other: See Comments Turns red Dakin's [Sodium Hyp* Unknown Nickel Unknown Vanadium Unknown MEDICATIONS: aspirin, enteric coated (ASPIRIN, ENTERIC COATED) 81 mg EC tablet Take 81 mg by mouth once daily. metoprolol tartrate, short acting, (LOPRESSOR) 25 mg tablet take 1 tablet by mouth twice a day inulin (FIBER GUMMIES) 2 gram chew Take by mouth. pantoprazole DR (PROTONIX) 40 mg tablet Take 40 mg by mouth twice daily. liothyronine (CYTOMEL) 5 mcg tablet Take 1 tablet by mouth twice daily. vit A/vit C/vit E/zinc/copper (ICAPS AREDS ORAL) Take by mouth. cholecalciferol, Vitamin D3, (VITAMIN D3) 1,250 mcg (50,000 unit) cap capsule Take by mouth. ibuprofen-acetaminophen (ADVIL DUAL ACTION) 125-250 mg tab Take 2 tablets by mouth twice daily as needed. levothyroxine (SYNTHROID) 112 mcg tablet Take 1 tablet by mouth once daily. EPINEPHrine (EPIPEN) 0.3 mg/0.3 mL auto-injector EpiPen 0.3 mg/0.3 mL (1:1,000) IM Injector multivitamin tablet Take 1 tablet by mouth once daily. Propafenone HCl (RYTHMOL) 225 mg tablet TAKE 1 TABLET EVERY 8 HOURS REVIEW OF SYSTEMS: Review of Systems Constitutional: Negative for chills, diaphoresis and fever. Respiratory: Positive for shortness of breath (takes breath away with arrhythmia). Negative for cough, hemoptysis, sputum production and wheezing. Cardiovascular: Positive for palpitations. Negative for chest pain, orthopnea, leg swelling and PND. Musculoskeletal: Negative for myalgias. Neurological: Negative for dizziness, loss of consciousness and headaches. PHYSICAL EXAMINATION: BP 117/69 Pulse 59 Ht 5' 7 (1.70m) Wt 162 lb (73.5kg) SpO2 98% BMI 25.37 kg/(m^2). Physical Exam Vitals and nursing note reviewed. Constitutional: General: She is not in acute distress. Appearance: She is not diaphoretic. HENT: Head: Normocephalic and atraumatic. Neck: Vascular: No JVD. Cardiovascular: Rate and Rhythm: Normal rate and regular rhythm. Pulses: Radial pulses are 2+ on the right side and 2+ on the left side. Posterior tibial pulses are 2+ on the right side and 2+ on the left side. Heart sounds: S1 normal and S2 normal. No murmur heard. No gallop. Pulmonary: Effort: Pulmonary effort is normal. No respiratory distress. Breath sounds: Normal breath sounds. No wheezing or rales. Chest: Chest wall: No tenderness. Musculoskeletal: General: Normal range of motion. Cervical back: Neck supple. Right lower leg: No edema. Left lower leg: No edema. Skin: General: Skin is warm and dry. Nails: There is no clubbing. Neurological: Mental Status: She is alert and oriented to person, place, and time. Psychiatric: Mood and Affect: Mood and affect normal. Behavior: Behavior normal. CARDIOVASCULAR MEDICINE TESTING: Stress Test: 06/23/2021 CONCLUSIONS: 1. SPECT Perfusion Study: Normal. 2. There is no scintigraphic evidence for inducible ischemia. 3. No evidence of scarred myocardium. 4. Left ventricle is normal in size. The left ventricle systolic function is normal. 5. This is a low risk scan. Gated Stress FBP LVEF % 74 I have personally reviewed the Electrocardiogram: 05/28/2023 -normal sinus rhythm, 61 bpm, NE 162 ms,QRS 100 ms, QT/QTc 410/412 ms. PLAN AND RECOMMENDATIONS: ASSESSMENT/PLAN: 1. History of atrial fibrillation - ICD9: V12.59, ICD10: Z86.79 (primary diagnosis) 2. PAC (premature atrial contraction) - ICD9: 427.61, ICD10: I49.1 3. Palpitations - ICD9: 785.1, ICD10: R00.2 -s/p remote catheter ablation, maintaining sinus rhythmon propafenone and metoprolol, recently began experiencing more frequent episodes of palpitations which she believes to be atrial fibrillation, occurring 4-5 times/week. The Kardia tracings that I rev iewed appear to be sinus rhythm with frequent PACs, will order echocardiogram and 7-day patch monitor. She will follow-up in [address] Zamora or DEBBIE to review results and discuss treatment plan, she will call in the meantime with any questions or concerns, patient verbalizes understanding. 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 5. At risk for stroke - ICD9: V15.89, ICD10: Z91.89 -history of atrial fibrillation, she has a TCE0LT3-HHIi score of 2 for age and female gender, takes aspirin 81 mg daily, is currently taking the chewable form, I have asked that she switch to enteric-coated aspirin. 6. Hyperkalemia - ICD9: 276.7, ICD10: E87.5 -reportedly recent labs showed potassium of 5.7, patient has made some diet modifications, have asked that she repeat a BMP in about a month. - BASIC METABOLIC PNL Return in about 3 months (around 08/26/2023) for Dr. Zamora or DEBBIE. Lilia Martinez APRN.CNP Medical Decision Making: Problems: Moderate: 1+ chronic illnesses with change Data: Unique source(s) for external note(s) reviewed: 1 Unique test result(s) reviewed: 2 Unique test(s) ordered: 3+ Risk: Moderate: Drug management and Moderate risk from testing/treatment Medical Decision Making Level: 4 - Moderate The above note was partially created using a dictation recognition software. A reasonable attempt has been made to correct any errors. documented in this encounterNor[facility]02-02-2024 Nurse Note* Shyann Shrestha MA - 05/28/2023 1:21 PM EST Pt denies cardiac concerns today Pt does report frequent AFIB episodes documented in this encounterNor[facility]12-14-2023 Miscellaneous Notes* Telephone Encounter - Jasmyn Wood LPN - 04/08/2023 7:35 AM EST Patient's request for medication is as follows: Requested Prescriptions Pending Prescriptions Disp Refills metoprolol tartrate, short acting, (LOPRESSOR) 25 mg tablet [Pharmacy Med Name: METOPROLOL [id number] MG TAB] 180 tablet 3 Sig: take 1 tablet by mouth twice a day Last seen 05/28/2022. Follow up scheduled for 05/28/2023. Prescription(s) as above. Please process accordingly. Jasmyn Wood LPN documented in this encounterNorwalk [facility]11-05-2023 Note. MICRO - Microbiology PROCEDURE: Urine Culture [*1] SOURCE: Urine, Clean Catch BODY SITE: COLLECTED DATE/TIME: 02/26/2023 09:37 EDT RECEIVED DATE/TIME: 02/26/2023 20:36 EDT START DATE/TIME: 02/26/2023 20:36 EDT FREE TEXT SOURCE: FINAL REPORTS Final Report [] Verified Date/Time/Personnel: 02/28/2023 09:52 EST 50,000 - 100,000 cfu/ml Escherichia coli PRELIMINARY REPORTS Preliminary Report [] Verified Date/Time/Personnel: 02/27/2023 16:07 EDT 50,000 - 100,000 cfu/ml Escherichia coli TRUDY to follow SUSCEPTIBILITY RESULTS Escherichia coli Antibiotic TRUDY Dilut TRUDY Inter Ampicillin <=8 Susceptible Ampicillin/ <=4/2 Susceptible Sulbactam Aztreonam <=4 Susceptible Cefazolin <=2 Susceptible Ciprofloxacin <=0.25 Susceptible Ertapenem <=0.5 Susceptible Gentamicin <=2 Susceptible Imipenem <=1 Susceptible Levofloxacin <=0.5 Susceptible Meropenem <=1 Susceptible Minocycline <=4 Susceptible Nitrofurantoin <=32 Susceptible Trimethoprim/ <=0.5/9.5 Susceptible Sulfa Performing Locations *1: This test was performed at: [facility], [address] [place] [address], [facility] , [facility]10-12-2022 History of Present illness Narrative* Gaye Rowell PA-C - 10/12/2022 9:31 AM EDT SUBJECTIVE Bella Morillo is a 67 year old woman who presents for her annual exam. Last pap- 10/08/21. Last mammo- 04/03/22. Last dexascan-06/20/19. No LMP recorded. Patient is postmenopausal. Denies vaginal itching, burning, discharge, or bleeding. Discussed health maintenance, including regular aerobic exercise, low sugar diet, and periodic exams. She had Reclast through endocrinology in the past. HISTORIES FAMILY HISTORY Problem Relation Age of Onset other (stomach cancer) Mother Colon Cancer Mother Hypothyroidism Mother Melanoma Mother 76 Arrythmias Mother Prostate Cancer Father Coronary Artery Disease Father Hypertension Father Hyperlipidemia Father Heart disease Father cardiac murmur Diabetes Maternal Grandmother Heart disease Paternal Grandmother quadruple bypass and of a heart attack at age 75 Breast Cancer Maternal Aunt 42 other (liver) Maternal Aunt Graves Disease Other PAST MEDICAL HISTORY Diagnosis Date Anemia Atrial fibrillation (HCC) Atrophic vaginitis Dyspareunia in female Family history of breast cancer Family history of colon cancer offered Colaris MyRisk; pt needs to complete genetic counseling Family history of malignant melanoma Femur fracture (HCC) trip/fall from standing height High risk for hip fracture 05/2019 FRAX Hip 3% 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 Knee pain Macular degeneration Migraine with aura Osteopenia 2010 PAC (premature atrial contraction) Palpitations Pituitary disorder (HCC) prolactin elevation on reglan Postmenopausal osteoporosis 2014 Thyrotoxicosis without mention of goiter or other cause Uterine fibroid Vitamin D deficiency PAST SURGICAL HISTORY Procedure Laterality Date AFIB ABLATION/PULM VEIN ISOLATION 2006 pulmonary vein ablation for A fib AFIB ABLATION/PULM VEIN ISOLATION 2014 ARTHROTOMY W/MENISCUS REPAIR KNEE Left 1966 Open knee reconstruction ARTHRP KNE CONDYLE&PLATU MEDIAL&LAT COMPARTMENTS Left x2 ARTHRP KNE CONDYLE&PLATU MEDIAL&LAT COMPARTMENTS Left 11/08/2019 revision, Dr. Reyes COLONOSCOPY 2009 due in 5 years COLONOSCOPY 2020 wnl due in 3 years FINGER SURGERY HX Right trigger finger KNEE SURGERY HX Left x6 KNEE SURGERY HX Left 1997 LEG SURGERY HX femur fracture SPINE SURGERY HX 2011 Social History Tobacco Use Smoking status: Former Packs/day: 0.50 Years: 10.00 Pack years: 5.00 Types: Cigarettes Quit date: 08/18/1987 Years since quittin.1 Smokeless tobacco: Never Vaping Use Vaping Use: Never used Substance Use Topics Alcohol use: Yes Alcohol/week: 7.5 - 10.0 standard drinks Types: 3 - 4 Glasses of Wine (5oz) per week Comment: socially Drug use: No ACTIVE PROBLEM LIST Paroxysmal Atrial Fibrillation (Hcc) PAIN JOINT, KNEE STIFF JOINT LOWER LEG Hypothyroidism Unspecified Vitamin D Deficiency Hypothyroidism Due to Jasen's Thyroiditis Palpitations Pac (Premature Atrial Contraction) Autoimmune Thyroiditis Displacement of Lumbar Intervertebral Disc Without Myelopathy Primary Osteoarthritis of Right Knee Trochanteric Bursitis of Right Hip At Risk for Stroke Anemia Bursitis of Elbow Chronic Constipation Fracture of Femur (Hcc) Gastroesophageal Reflux Disease Hypomagnesemia Macular Drusen Migraine Without Aura Osteoporosis Prosthetic Joint Implant Failure (Hcc) Raynaud's Disease Headache History of Atrial Fibrillation Kidney Stone Cataract Decreased Glomerular Filtration Rate (Gfr) Degeneration of Intervertebral Disc of Lumbar Region Macular Degeneration Hematuria Syndrome Hiatal Hernia ALLERGIES Allergen Reactions Bees Anaphylaxis Codeine Intolerance migraines Adhesive Tape (Marianne* Rash, Itching Adhesive Tape-Silic* Unknown Bee Sting Anaphylaxis Bee Venom Protein (* Anaphylaxis Cortisone Other: See Comments Turns red Dakin's [Sodium Hyp* Unknown Nickel Unknown Vanadium Unknown Current Outpatient Medications Medication Sig inulin (FIBER GUMMIES) 2 gram chew Take by mouth. metoprolol tartrate, short acting, (LOPRESSOR) 25 mg tablet TAKE 1 TABLET BY MOUTH TWICE A DAY Propafenone HCl (RYTHMOL) 225 mg tablet TAKE 1 TABLET EVERY [address] (PROTONIX) 40 mg tablet Take 40 mg by mouth twice daily. liothyronine (CYTOMEL) 5 mcg tablet Take 1 tablet by mouth twice daily. vit A/vit C/vit E/zinc/copper (ICAPS AREDS ORAL) Take by mouth. cholecalciferol, Vitamin D3, (VITAMIN D3) 1,250 mcg (50,000 unit) cap capsule Take by mouth. ibuprofen-acetaminophen (ADVIL DUAL ACTION) 125-250 mg tab Take 2 tablets by mouth twice daily as needed. levothyroxine (SYNTHROID) 112 mcg tablet Take 1 tablet by mouth once daily. EPINEPHrine (EPIPEN) 0.3 mg/0.3 mL auto-injector EpiPen 0.3 mg/0.3 mL (1:1,000) IM Injector multivitamin tablet Take 1 tablet by mouth once daily. metoprolol tartrate, short acting, (LOPRESSOR) 25 mg tablet TAKE 1 TABLET BY MOUTH TWICE A DAY (Patient not taking: No sig reported) No current facility-administered medications for this visit. REVIEW OF SYSTEMS GENERAL: No weight loss, malaise or fevers HEENT: No changes in hearing or vision NECK: Negative for lumps, goiter, pain and significant neck swelling RESPIRATORY: Negative for cough, wheezing, dyspnea or shortness of breath CARDIOVASCULAR: +palpitations with a fib; Negative for chest pain GI: +constipation; Negative for abdominal discomfort, blood in stools or black stools, change in bowel habit, diarrhea, nausea, vomiting : No history of dysuria, frequency or incontinence SEWAGE PLANT ATTENDANT: Negative for abnormal vaginal bleeding, abnormal vaginal discharge or Breast symptoms ENDOCRINE: Negative for cold or heat intolerance, polyuria, polydipsia and goiter NEURO: No history of headaches, syncope, paralysis, seizures or tremors OBJECTIVE BP 128/70 Ht 5' 7 (1.70m) Wt 162 lb (73.5kg) BMI 25.37 kg/(m^2). HEENT: Within normal limits NECK: Supple, no thyromegaly BREASTS: No masses, no nipple discharge HEART: Regular rate and rhythm without murmur, rub, or gallop LUNGS: Clear bilaterally to auscultation ABDOMEN: No masses, non tender, no hernias, no hepatosplenomegaly PELVIC: EGBUS: No lesions, atrophic appearance VAGINA: No discharge, no blood, no lesions CERVIX: No lesions, non tender UTERUS: Anteverted, normal size, non tender ADNEXA: Non tender, no masses RECTOVAGINAL: Neg for heme or mass (FIT) EXTREMITIES: No edema, no calf tenderness NEUROLOGICAL: Grossly intact ASSESSMENT/PLAN: 1. Women's annual routine gynecological examination - ICD9: V72.31, ICD10: Z01.419 (primary diagnosis) - Completed pelvic and breast exam - Completed pap exam - Encouraged monthly BSE - Follow up for annual exam in one year. - PAP REFLEX HPV MRNA WHEN ASCUS 2. Screening for malignant neoplasm of cervix - ICD9: V76.2, ICD10: Z12.4 - Completed pap exam - Follow up for annual exam in one year. - PAP REFLEX HPV MRNA WHEN ASCUS 3. Breast cancer screening by mammogram - ICD9: V76.12, ICD10: Z12.31 - Completed breast exam - Set up for mammogram, yearly mammogram recommended - Encouraged monthly BSE - Follow up for annual exam in one year. - NILO SCREENING 4. Encounter for colorectal cancer screening - ICD9: V76.51, V76.41, ICD10: Z12.11, Z12.12 5. Screening for osteoporosis - ICD9: V82.81, ICD10: Z13.820 - DXA-AXIAL SKELETON 6. Menopause - ICD9: 627.2, ICD10: Z78.0 - DXA-AXIAL SKELETON 7. Osteopenia, unspecified location - ICD9: 733.90, ICD10: M85.80 - Reviewed the need for Calcium and Vitamin D supplements and weight bearing exercise as tolerated 8. At high risk for fracture - ICD9: [id number], ICD10: Z91.89 9. Uterine leiomyoma, unspecified location - ICD9: 218.9, ICD10: D25.9 Gaye Rowell PA-C Return in about 1 year (around 10/13/2023) for Annual Exam. documented in this encounterNor[facility]03-16-[facility] History of Present illness Narrative* Jaciel Hurd MD - 07/09/2022 3:07 PM EDT Orthopaedic Office Note: July 18, 2022 3:08 PM Bella Luciano Yisel 66 year old History: This is a very nice 66-year-old woman with a complex history involving her left knee. She has had multiple revision operations. Her most recent surgery was with Dr. Reyes on November 072019. This was to a nonhinged constrained system, AESCULAP, with a Marlex mesh reconstruction of the extensor mechanism. She was immobilized for 7 weeks in a cast and then placed in a hinged brace and allowed to start progressive motion. Her extensor mechanism is reruptured. She also has defect in the arthrotomy and subsequent large subcutaneous fluid collection. She has a nickel allergy. Her primary complaint of the fluid collection, the pain, and the loss of active extension. Did have aspirate postoperatively with synovasure results: Neg CRP Neg alpha defensin 479 cells, 62% PMN Subjective: Pain, inability to straight leg raise, fluid collection see above Updated ROS: No changes Updated Exam: Left lower Extremity Well-healed surgical incision Extensor lag of over 40 degrees No active extension Patella alto Varus valgus instability Massive subcutaneous fluid collection Updated Imaging: Revision arthroplasty with extensor mechanism disruption Assessment and Plan: I had a long discussion with Bella Morillo regarding the state of her knee. 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 At this point her limb is certainly threatened. She can continue to live in the current state, that would be the most conservative management. Based on her disability, pain, extensor lag, though she would like to pursue operative intervention if possible. We discussed above-knee amputation, arthrodesis of the knee, and revision arthroplasty. She would like to pursue the latter. Believe most reasonable attempt at reconstruction in this case would be removal of the patella, revision extensor mechanism reconstruction, and conversion to a hinged prosthesis so that if she ruptures again she can at least perform back knee gait. I anticipate 3 months to 4 months in a cast and full extension. Addendum: after presentation at conference, consideration of retaining current implants and just repeating mesh. Consideration of gastroc flap for arthrotomy coverage due to large subcutaneous fluid. Aspirate negative for infection on synovasure, see HPI Regarding her nickel allergy I do not believe that the current nickel free hinged options are as reliable, and I have reviewed this with my partners, and I believe a reconstruction in this scenario would involve implants that do contain nickel. I will work to find a plastic surgeon to be able to see her and discuss this. I will present her case at conference. Addendum: patient would like to wait for now, will call office when ready to schedule. I spent a total of approximately 35 minutes on the date of the service which included preparing to see the patient, [id number] patient care, completing clinical documentation, obtaining and/or reviewing separately obtained history, performing a medically appropriate examination, counseling and educating the patient/family/caregiver, ordering medications, tests, or procedures, communicating withother HCPs (not separately reported), independently interpreting results (not separately reported),communicating results to the patient/family/caregiver, and care coordination (not separately reported). . Jaciel Hurd MD Orthopaedic Surgery documented in this encounterNorwalk [facility]03-16-2023 History of Present illness Narrative* Minerva Carroll CT - 07/09/2022 2:20 PM EDT Radiology Service Progress Note PATIENT NAME: Bella Morillo DATE OF SERVICE: July 09, 2022 TIME: 2:31 PM PATIENT IDENTITY VERIFICATION COMPLETED USING TWO (2) IDENTIFIERS: Name and Date of confirmedby patient verbally. FALL SCREENING: Has the patient had 2 falls in the last year or 1 fall with injury or currently using an Ambulatory Assistive Device (Walker, Cane, Wheelchair, Crutches, etc.)? Yes, Patient High Riskfor Falls What interventions were put in place to prevent falls during this visit? Offered Assistance with Transfers/Clothing and Increased Observations by Caregivers PATIENT GENDER DATA: Female. status: : No status: NO. PATIENT RELEVANT IMPLANT DATA REVIEWED: Not Applicable RADIOLOGY DEPARTMENT: General X-ray: Exam(s) Completed: Lower Extremity X- Ray(s): Knee, AP / Lat / Merchant Left and Wt. Bearing PERIPHERAL IV DATA: Not applicable SIGNED BY: JOHNSON Garza July 09, 2022 2:31 PM documented in this encounterNorwalk [facility] Hospital02-15-2023 Miscellaneous Notes* Telephone Encounter - Paola Metcalf - 06/10/2022 1:24 PM EST Also added patient to wait list as she is requesting to be seen before 07/07/22. * Telephone Encounter - Paola Metcalf - 06/10/2022 1:21 PM EST Called and informed Twyla (Dr. Bradshaw's office) and informed them Dr. Hurd will see Bella. Then called Bella and scheduled her with Dr. Hurd * Telephone Encounter - Jose Gutierrez APRN.CNP - 06/10/2022 12:09 PM EST Okay to schedule appointment with Dr. Hurd. We can see for left knee revision evaluation. Jose Gutierrez APRN.CNP June 10, 2022 12:09 PM * Telephone Encounter - Paola Metcalf - 06/10/2022 9:31 AM EST Patient was on wait list for the following: Left Knee Referred to Dr. Hurd by Dr. Gabrielle Bradshaw discuss possible surgical options, Dr. Hurd did not subgroup for F Contact for scheduling, Dr. Bradshaw's office, any front end specialist can assist [phone] Option 1 06/10- I called Dr. Bradshaw's office to schedule, and bowling or skating front desk clerk stated Dr. Hurd wanted to reviewlast office not to decide if he would see patient or not.. I did not see any notes on this.. please advise if we are still waiting to schedule patient or not. Twyla (bowling or skating front desk clerk staff) faxed the office note on 06/10/22 PSS please call Twyla and advise / schedule with her [phone] option 1 Thanks! documented in this encounterNorwalk [facility] Hospital02-02-2023 History of Present illness Narrative* Chi Zamora MD - 05/28/2022 10:19 AM EST Images from the original note were not included. Heart and Vascular [facility] SECTION OF CARDIAC PACING and ELECTROPHYSIOLOGY OUTPATIENT VISIT DATE May 28, 2022 OUTPATIENT VISIT TYPE ESTABLISHED PRIMARY CARE PHYSICIAN: Sridhar Montero [address] [place] [address] HISTORY OF PRESENT ILLNESS: Prior history, edited as needed: 66 approximately 20 years ago and repeat radiofrequency ablation at [facility] in 2012, has been maintained on low-dose propafenone for symptomatic PACs, WVW9-QT7-ZITr score of 1 for gender only, not anticoagulated, developed an episode of atrial fibrillation in early 2018, converted spontaneously. That was the first symptomatic episode of atrial fibrillation in the last 6 years. Since then her propafenone was increased to 225 mg 3 times a day. She was continued on metoprolol as well. Her ablation was performed in April 2012. Achieving electrical isolation of the left superior andleft pulmonary veins required extensive ablation of the region area between left atrial appendage and the veins. 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 Interval history: Bella presents for follow-up. She has been feeling well, recently had right knee replacement and another orthopedic procedure on the left knee. Denies palpitation, heart racing, dizziness, or syncope. She had another knee replacement. She remains on propafenone for symptomatic PAC suppression. As in the past, her XZF6-WN9-QFLa score is 1 forgender only, although her blood pressure is somewhat up today. She states that normally it runs at lower levels. ECG shows sinus bradycardia 59 bpm with normal intervals. She is doing well from EP standpoint. We will continue propafenone and see her back in 1 year. 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 Knee pain Macular degeneration Migraine with aura Osteopenia 2010 PAC (premature atrial contraction) Palpitations Pituitary disorder (HCC) prolactin elevation on reglan Postmenopausal osteoporosis 2015 Thyrotoxicosis without mention of goiter or other cause Uterine fibroid Vitamin D deficiency MEDICATIONS: metoprolol tartrate, short acting, (LOPRESSOR) 25 mg tablet TAKE 1 TABLET BY MOUTH TWICE A DAY Propafenone HCl (RYTHMOL) 225 mg tablet TAKE 1 TABLET EVERY [address] (PROTONIX) 40 mg tablet Take 40 mg by mouth twice daily. liothyronine (CYTOMEL) 5 mcg tablet Take 1 tablet by mouth twice daily. vit A/vit C/vit E/zinc/copper (ICAPS AREDS ORAL) Take by mouth. cholecalciferol, Vitamin D3, (VITAMIN D3) 1,250 mcg (50,000 unit) cap capsule Take by mouth. ibuprofen-acetaminophen (ADVIL DUAL ACTION) 125-250 mg tab Take 2 tablets by mouth twice daily as needed. levothyroxine (SYNTHROID) 112 mcg tablet Take 1 tablet by mouth once daily. EPINEPHrine (EPIPEN) 0.3 mg/0.3 mL auto-injector EpiPen 0.3 mg/0.3 mL (1:1,000) IM Injector multivitamin tablet Take 1 tablet by mouth once daily. metoprolol tartrate, short acting, (LOPRESSOR) 25 mg tablet TAKE 1 TABLET BY MOUTH TWICE A DAY (Patient not taking: Reported on 10/08/2021) Review of Systems PHYSICAL EXAMINATION: BP 140/72 (BP Site: Left Arm, BP Position: Sitting, BP Cuff Size: Regular Adult) Pulse 70 Ht 5'7 (1.702 m) Wt 162 lb (73.5 kg) SpO2 98% BMI 25.37 kg/m BP w/Orthostatic Vitals Date and Time Orthostatic BP Orthostatic Pulse BP Pulse BP Position BP Site BP Cuff Size 05/28/22 0946 -- -- 140/72 70 Sitting Left Arm Regular Adult Physical Exam I have personally reviewed the Electrocardiogram. Assessment PLAN AND RECOMMENDATIONS: ASSESSMENT/PLAN: 1. Paroxysmal atrial fibrillation (HCC) - ICD9: 427.31, ICD10: I48.0 (primary diagnosis) --Status post remote catheter ablation, maintaining sinus rhythm, not on anticoagulation, on propafenone for supraventricular ectopy. DNG9-CW9-AZFo score of 1 for gender only - ECG B/O W INTERP (MED OFFICE) 2. PAC (premature atrial contraction) - ICD9: 427.61, ICD10: I49.1 - Symptomatically maintained on propafenone long-term with successful suppression. Chi Zamora MD Office follow-up in 1 year. CONTACT INFORMATION: Chi Zamora MD documented [place] encounter[place] [id number] Nurse Note* Viviane Middleton LPN - 05/28/2022 9:45 AM EST Patient denies any cardiac complaints or symptoms. Viviane Middleton LPN documented in this encounterNorwalk [facility] Hospital01-23-2023 Miscellaneous Notes* Telephone Encounter - Jasmyn Wood LPN - 05/18/2022 7:16 AM EST Patient's request for medication is as follows: Requested Prescriptions Pending Prescriptions Disp Refills metoprolol tartrate, short acting, (LOPRESSOR) 25 mg tablet [Pharmacy Med Name: METOPROLOL [id number] MG TAB] 180 tablet 3 Sig: TAKE 1 TABLET BY MOUTH TWICE A DAY Last seen 05/26/2021. Follow up scheduled for 05/28/2022. Prescription(s) as above. Please process accordingly. Jasmyn Wood LPN documented in this encounterNorwalk [facility] Hospital12-11-2022 Miscellaneous Notes* Letter - Mammography Coordinator - 04/05/2022 7:19 AM EST [address] [address] April 05, 2022 PID: [id number] Bella Morillo [address] [place] [address] Dear Ms. Morillo, We are pleased to inform you that the results of your recent breast imaging exam on 04/03/2022 are normal. Early detection of cancer is very important. We also understand recommendations regarding breast cancer screening are controversial. Please discuss with your primary care provider which strategy is best for you and whether a mammogram is right for you. Your imaging studies and report will be [facility] as part of your permanent medical record and are available for your continuing care. Thank you for allowing us to help in meeting your health care needs. Sincerely, Dr. Angel Interpreting Radiologist [facility] (Normal over 40) documented in this encounterNorwalk Memorial Hospital12-09-2022 History of Present illness Narrative* RT Kimber(R) - 04/03/2022 10:00 AM EST Radiology Service Progress Note PATIENT NAME: Bella Morillo DATE OF SERVICE: April 03, 2022 TIME: 10:07 AM PATIENT IDENTITY VERIFICATION COMPLETED USING TWO (2) IDENTIFIERS: Name and Date of confirmedby patient verbally. FALL SCREENING: Has the patient had 2 falls in the last year or 1 fall with injury or currently using an Ambulatory Assistive Device (Walker, Cane, Wheelchair, Crutches, etc.)? No PATIENT GENDER DATA: Female. status: : No status: NO. PATIENT RELEVANT IMPLANT DATA REVIEWED: Yes RADIOLOGY DEPARTMENT: Mammography PERIPHERAL IV DATA: Not applicable SIGNED BY: RT Kimber(R) April 03, 2022 10:07 AM documented in this encounterNorwalk [facility] Hospital2022 Hospital Discharge instructions Patient Education 11/20/2021 13:26:36 Atrial Fibrillation Atrial Fibrillation Atrial fibrillation is a condition in which the heart beats in an irregular pattern. It is caused by a problem in the heart's electrical pathways. It can be a sign of heart disease or other health problems that affect the heart. Heart palpitations are the most common symptom of atrial fibrillation. This is the feeling that your heart is fluttering, beating fast, hard, or irregular. When the heart beats too fast, it doesn't pump blood very well. This can cause other symptoms like anxiety, fatigue, shortness of breath, chestpain, dizziness, or fainting. Atrial fibrillation may come and go. It can last from a few hours to a couple of days. Or, it may become chronic, lasting for months at a time or even become permanent. Atrial fibrillation may be caused by heart disease or other conditions in the body that affect the heart: Coronary artery disease (atherosclerosis) High blood pressure Disease of the heart valves Enlarged heart Heart failure Atrial fibrillation can also occur without heart disease because of: Overactive thyroid (hyperthyroid) Chronic lung disease (COPD, emphysema, bronchitis) Heavy alcohol use Cardiac stimulants like cocaine, amphetamines, diet pills, certain decongestant cold medicines, caffeine, or nicotine Infection Blood clot in the lung (pulmonary embolus) Diabetes Chronic kidney disease Obesity Extreme athletic conditioning Treating or removing these causes will help your treatment for atrial fibrillation. It will also make it less likely for the atrial fibrillation to come back. Atrial fibrillation can alternate back and forth with another abnormal rhythm called atrial flutter. Atrial flutter is a more regular heart rhythm and is also associated with an increased stroke risk. Proper treatment can lower your risk for stroke. Home care Follow these guidelines when caring for yourself at home: Go back to your usual activities as soon as you are feeling back to normal. If you smoke, stop smoking. Contact your healthcare provider or a local stop- smoking program for help. Don't use stimulants like alcohol, cocaine, amphetamines, diet pills, certain decongestant cold medicines, caffeine, or nicotine. If your provider prescribed medicine to stop atrial fibrillation from coming back, take it exactly as directed. Some medicines must be taken every day, not just when you have symptoms. This will helpthem work as they should. If you were prescribed warfarin to lower your risk for stroke, have your blood tested on a regular basis as advised by your provider. This will make sure you are getting the dose that is right for you. It also lower your risk for side effects. Follow-up care Follow up with your healthcare provider, or as advised. When to seek medical advice Call your healthcare provider right away if any of these following occur: Shortness of breath or swelling in the legs gets worse Unexpected weight gain Chest pain or the sense that your heart is fluttering or beating fast or hard (palpitations) Any sign of bleeding if you are on a blood thinner Pain, redness, or swelling in one leg Also call your provider right away if you have these signs of stroke: Weakness of an arm or leg or one side of the face Difficulty with speech or vision Extreme drowsiness, confusion, dizziness, or fainting [id number] [employer] [place] [address], [place] [address]. All rights reserved. This information is not intended as a substitute for professional medical care. Always follow yourhealthcare professional's instructions. Follow Up Care 11/20/2021 10:17:19 With:Your hollow handle bench worker at the [facility] Address:Unknown When:2-4 days Comments:Schedule appointment for close follow-up.Continue routine home medications.Return to the ED if symptoms recur or worsen. [facility] Corinne Balderrama 2022 Note Discharge Instructions Thank you for allowing [facility] to assist you with your healthcare needs. The following is importantdischarge information regarding your hospital visit. Diagnosis from Today's Visit Atrial fibrillation with rapid ventricular response Palpitations What to Do Next Instructions from Your Care Team No qualifying data available. Post Acute Orders No qualifying data available. You Need to Schedule the Following Appointments Follow Up with Your hollow handle bench worker at the [facility] When Within 2-4 days Why: Schedule appointment for close follow-up. Continue routine home medications. Return to the ED if symptoms recur or worsen. Allergies Bee Stings (Anaphylactic reaction) Dakins Full Strength Solution (Skin irritation) Metal unspecified (Unknown) Tape (Rash) codeine (Headache) cortisone (Flush) Medications Please ask your primary doctor or pharmacist before taking any other medication not listed, including over the counter drugs, herbal medications, vitamins and or supplements as they may interact withyour home medications. What How Much When Instructions Last Dose Unchanged EPINEPHrine (EpiPen 2-Eze 0.3 mg injectable kit) 1 kit Intramuscular As Directed as needed for Allergic reaction Duration: 2 Doses dispense one 2 pack auto injector kit Unchanged ergocalciferol (Vitamin D2 1.25 mg (50,000 intl units) oral capsule) 1 cap by mouth Every week Unchanged ibuprofen (Advil 200 mg oral tablet) See instructions tab(s) mg Oral q6hr Unchanged levothyroxine (Synthroid 112 mcg (0.112 mg) oral tablet) 1 tab(s) by mouth Once a day Unchanged liothyronine (Cytomel 5 mcg oral tablet) 1 tab(s) by mouth Every day Unchanged meloxicam (meloxicam 7.5 mg oral tablet) 1 tab(s) by mouth Once a day Unchanged metoprolol (metoprolol tartrate 25 mg oral tablet) 1 tab(s) by mouth Two (2) times a day Unchanged multivitamin with minerals (PreserVision AREDS 2 oral capsule) 2 cap by mouth Once a day Unchanged oxyCODONE (oxyCODONE 5 mg oral tablet ( IMMEDIATE release )) 1 tab(s) by mouth Every 6 hours as needed for for pain Unchanged pantoprazole (pantoprazole 40 mg oral enteric coated tablet) 1 tab(s) by mouth Two (2) times a day Duration: 90 Days Unchanged propafenone (propafenone 225 mg oral tablet) 1 tab(s) by mouth Every 8 hours Please take this list to your next doctor s visit. Bring all medications you take, including over the counter medications, herbals and other supplements with you to your doctor s visit. Patients and families are reminded to discard old lists and to update any records with all medication providers or retail pharmacies. Education Materials Atrial Fibrillation Atrial fibrillation is a condition in which the heart beats in an irregular pattern. It is caused by a problem in the heart's electrical pathways. It can be a sign of heart disease or other health problems that affect the heart. Heart palpitations are the most common symptom of atrial fibrillation. This is the feeling that your heart is fluttering, beating fast, hard, or irregular. When the heart beats too fast, it doesn't pump blood very well. This can cause other symptoms like anxiety, fatigue, shortness of breath, chestpain, dizziness, or fainting. Atrial fibrillation may come and go. It can last from a few hours to a couple of days. Or, it may become chronic, lasting for months at a time or even become permanent. Atrial fibrillation may be caused by heart disease or other conditions in the body that affect the heart: Coronary artery disease (atherosclerosis) High blood pressure Disease of the heart valves Enlarged heart Heart failure Atrial fibrillation can also occur without heart disease because of: Overactive thyroid (hyperthyroid) Chronic lung disease (COPD, emphysema, bronchitis) Heavy alcohol use Cardiac stimulants like cocaine, amphetamines, diet pills, certain decongestant cold medicines, caffeine, or nicotine Infection Blood clot in the lung (pulmonary embolus) Diabetes Chronic kidney disease Obesity Extreme athletic conditioning Treating or removing these causes will help your treatment for atrial fibrillation. It will also make it less likely for the atrial fibrillation to come back. Atrial fibrillation can alternate back and forth with another abnormal rhythm called atrial flutter. Atrial flutter is a more regular heart rhythm and is also associated with an increased stroke risk. Proper treatment can lower your risk for stroke. Home care Follow these guidelines when caring for yourself at home: Go back to your usual activities as soon as you are feeling back to normal. If you smoke, stop smoking. Contact your healthcare provider or a local stop- smoking program for help. Don't use stimulants like alcohol, cocaine, amphetamines, diet pills, certain decongestant cold medicines, caffeine, or nicotine. If your provider prescribed medicine to stop atrial fibrillation from coming back, take it exactly as directed. Some medicines must be taken every day, not just when you have symptoms. This will helpthem work as they should. If you were prescribed warfarin to lower your risk for stroke, have your blood tested on a regular basis as advised by your provider. This will make sure you are getting the dose that is right for you. It also lower your risk for side effects. Follow-up care Follow up with your healthcare provider, or as advised. When to seek medical advice Call your healthcare provider right away if any of these following occur: Shortness of breath or swelling in the legs gets worse Unexpected weight gain Chest pain or the sense that your heart is fluttering or beating fast or hard (palpitations) Any sign of bleeding if you are on a blood thinner Pain, redness, or swelling in one leg Also call your provider right away if you have these signs of stroke: Weakness of an arm or leg or one side of the face Difficulty with speech or vision Extreme drowsiness, confusion, dizziness, or fainting [id number] [employer]. [address] [place] [address]. All rights reserved. This information is not intended as a substitute for professional medical care. Always follow yourhealthcare professional's instructions. Additional Information VACCINATE! IT SAVES LIVES! Members of the community who have not yet received the COVID-19 vaccine and would like to receive it can visit one of [facility] vaccine clinics. There are many vaccine clinic locations within the [facility]. For locations and available times, please visit [email or web address]. It is important to note that some COVID mobile vaccine clinics are held outdoors and may be canceled in rainy orstormy conditions. To learn more about pediatric vaccinations (ages 5-11), we invite you to visit the [facility] webpage. [email or web address] [email or web address] learn more about the COVID-19 vaccine, we invite you to visit the [facility] website for a list of frequently asked questions. [email or web address] [facility] Patient Portal Access Instructions: Stay connected with your healthcare team and access your personal medical information anytime with the [facility] Patient Portal. If you would like a full copy of your medical records please contact the [facility] Medical Records Department Wednesday through Wednesday between 8a.m. and 4:30p.m. Please follow the directions below to access the portal: 1.Access the email account you provided upon registration to the [facility].2.Look for an invitation email from [facility].3.Open the email and access the invitation link: Accept Invitation to [facility]4.Fill in the required kwok to create your account. Sign into [email or web address] with your username and password that you created in the above steps to stay up to date. You can then view a summary of results, a summary of your visits, and the ability to download your summaries to your computer or send the information securely to a physician. Remember that your healthcare information is confidential, so carefully consider who you will allow to register on the [facility] Patient Portal for access to your information. You can also access the [facility] Patient Portal on the [employer]ilia. Simply click on Health Records under HealthData and then click on the [facility] logo. HOW TO SAFELY DISPOSE OF PRESCRIPTION MEDICATIONS Please use one of the following methods to safely dispose of your unused medications. 1.Use a drug disposal kit: the drug disposal pouch allows you to safely discard your old and unuseddrugs. Ask your nurse to give you one when you are discharged.2.Visit a local take-back location: Many local pharmacies and police departments have programs that collect old and unwanted prescriptiondrugs. Call your local pharmacy or go to http://bit.ly/2T6Hn5x to find one close to you.3.Make use of household items: Use cat litter or old coffee grounds to dispose medications if other options arenot available. Mix your drugs with these household products, seal them in an airtight container andthrow it into the garbage. Call [facility]: [phone] to be sure your drugs can be disposed of in this way. Some medicines may require a different approach.4.Never flush your medications down the toilet. IF YOU HAVE BEEN PRESCRIBED AN OPIOIDS FOR PAIN If you have been prescribed an opioid (such as hydrocodone, oxycodone or morphine), it is critical to understand the possible side effects and risks of opioid pain medications. Even when taken as directed, opioids can have several side effects including: Tolerance, meaning you might need to take more of a medication for the same pain relief. Nausea, vomiting and/or constipation. Sleepiness, dizziness, dry mouth, confusion, depression or itching. Physical dependence, meaning you have withdrawal symptoms when a medication is stopped ? this can develop within a few days. KNOW YOUR RESPONSIBILITIES It is important to know exactly how much and how often to take the opioid pain medications you are prescribed. Never take opioids in higher amounts or more often than prescribed. Do not combine opioids with alcohol or other drugs that cause drowsiness, such as benzodiazepines, also known as benzos,including diazepam and alprazolam, muscle relaxants or sleep aids. Never sell or share prescriptionopioids. This is illegal. Store opioids in a secure place and out of reach of others (including children, family, friends and visitors). The last page(s) of this document has been signed and retained as a CHART COPY Signatures Patient Education Materials Atrial Fibrillation Medication Leaflets My discharge plan and instructions have been reviewed and explained to me and IYISEL CHERYL A understand my current condition and have read and understand these discharge instructions. I have received a written copy of the plan/instructions. If I have questions, I am aware that I should contact my doctor. Patient/Broiler Chef Or Cook Signature: Date/Time: Relationship to Patient: Witness Name/Signature: Date/Time: [facility] Note ORIGINAL EXAMINATION: ONE XRAY VIEW OF THE CHEST11/20/2021 11:02 am CHEST ONE VIEW AP/PA COMPARISON: 11/19/2021 HISTORY: ORDERING SYSTEM PROVIDED HISTORY: Reason for Exam: chest pain FINDINGS: The cardiomediastinal contours are normal. The aorta is atherosclerotic. There is no focal consolidation, pleural effusion, or pneumothorax. No acute osseous abnormality. IMPRESSION: No acute radiographic findings. Interpreted by: Alexi Garcia MD Preliminary Report By: Alexi Garcia MD Electronically signed By Alexi Garcia MD Dictated Date: 11/20/2021 11:05:23 AM Prelim Date: 11/20/2021 11:06:07 AM Sign Date: 11/20/2021 11:06:07 AM Ordering Provider: [address]28-2022 Note ORIGINAL EXAMINATION: ONE XRAY VIEW OF THE CHEST11/20/2021 11:02 am CHEST ONE VIEW AP/PA COMPARISON: 11/19/2021 HISTORY: ORDERING SYSTEM PROVIDED HISTORY: Reason for Exam: chest pain FINDINGS: The cardiomediastinal contours are normal. The aorta is atherosclerotic. There is no focal consolidation, pleural effusion, or pneumothorax. No acute osseous abnormality. IMPRESSION: No acute radiographic findings. Interpreted by: Alexi Garcia MD Preliminary Report By: Alexi Garcia MD Electronically signed By Alexi Garcia MD Dictated Date: 11/20/2021 11:05:23 AM Prelim Date: 11/20/2021 11:06:07 AM Sign Date: 11/20/2021 11:06:07 AM Ordering Provider: [address]28-2022 Hospital Discharge instructions Patient Education 11/19/2021 22:48:20 Your Heart's Electrical System Your Heart s Electrical System The heartbeat is the rhythmic contraction of the heart muscle's 4 chambers. The heart muscle has a special system that creates and sends electrical signals to activate these 4 chambers. First, a signal generated in the right upper chamber of the heart tells the 2 upper chambers (atria) to squeeze. This moves blood to the 2 lower chambers (ventricles). Next, electrical signals tell the ventricles to squeeze. This moves blood to the lungs, brain, heart, and body. Electrical signals Groups of special cells in the right atrium, called nodes, send out the heart s electrical signals.The signals travel along pathways. In the ventricles, these pathways are called bundle branches. The SA (sinoatrial) node This sets the pace of the heartbeat. It starts each beat by releasing a signal telling the atria tosqueeze. The AV (atrioventricular) node This receives the signal from the atria. It is the gateway between the atria and the ventricles. The AV node channels the signal into the ventricles. The Bundle branches These carry the signal through the ventricle kim. As the signal moves through the ventricles, theventricles squeeze. [id number] [employer]. [address] [place] [address]. All rights reserved. This information is not intended as a substitute for professional medical care. Always follow yourhealthcare professional's instructions. 11/19/2021 22:48:17 About Arrhythmias About Arrhythmias Electrical impulses cause the normal heart to beat 60 to 100 times a minute while at rest. These impulses come from a natural pacemaker deep inside the heart muscle. Each impulse causes the heart muscle to contract. This causes the blood to flow through the heart and out to the tissues and organs of your body. An arrhythmia is a change from the normal speed or pattern of these electrical impulses. This can cause the heart to beat too fast (tachycardia); or too slow (bradycardia); or in an unsteady pattern (irregular rhythm). Symptoms of arrhythmias Different people experience arrhythmias differently. Sometimes they may not have symptoms, but justnotice a change in their pulse. Symptoms can include: Fluttering feeling in the chest Shortness of breath Chest pain or pressure Neck fullness Lightheadedness or dizziness Fainting or almost fainting Palpitations (the sense that your heart is fluttering or beating fast or hard or irregularly) Tiredness, fatigue, or weakness Cardiac arrest Causes of arrhythmias Arrhythmias are most often due to heart disease such as: Coronary artery disease Heart valve disease Enlarged heart High blood pressure Heart failure Other causes of arrhythmia include: Certain medicines (such as asthma inhalers and decongestants) Some herbal supplements Cardiac stimulant drugs (such as cocaine, amphetamine, diet pills, certain decongestant cold medicines, caffeine, and nicotine) Excessive alcohol use Anxiety and panic disorder Thyroid disease Anemia Diabetes Sleep apnea Obesity Congenital heart disease Cardiac genetic diseases Arrhythmias can often be prevented. The cause and type of arrhythmia determines the best treatment.Sometimes your doctor may want to monitor your heart rate over a 24-hour period or longer. This canhelp identify the cause of your arrhythmia and find the best treatment. This can be done with a Holter monitor, a portable EKG recording device attached by wires to your chest. Or you may get an event monitor, which you can place over the skin in front of your heart to record heart rhythms. You cancarry this with you as you go about your routine activities during the monitoring period. Implantable loop recorders may also be used to monitor the heart rhythm for up to 2 years. This miniature device is placed underneath the skin overlying the heart. Home care The following guidelines will help you care for yourself at home: Avoid cardiac stimulants (such as cocaine, amphetamine, diet pills, certain decongestant cold medicines, caffeine, and nicotine). If you smoke, stop smoking. Contact your doctor or a local stop-smoking program for help. Tell your doctor about any prescription, ugsw-rke-slbmddg, or herbal medicines you take. These may be affecting your heart rhythm. Follow-up care Follow up with your healthcare provider, or as advised. If a Holter monitor has been recommended, contact the hollow handle bench worker you have been referred to as soon as you can picker box operator the device. Other outpatient tests may also be arranged for you at that time. Call 911 This is the fastest and safest way to get to the emergency department. The paramedics can also start treatment on the way to the hospital, if needed. Don't wait until your symptoms are severe to call 911. Other reasons to call 911 besides chest paininclude: Chest, shoulder, arm, neck, or back pain Shortness of breath Feeling lightheaded, faint, or dizzy Unexplained fainting Rapid heart beat Slower than usual heart rate compared to your normal Very irregular heartbeat Chest pain (angina) with weakness, dizziness, heavy sweating, nausea, or vomiting Extreme drowsiness, or confusion Weakness of an arm or leg or one side of the face Difficulty with speech or vision When to seek medical advice Remember, things are not always like they are on TV. Sometimes it is not so obvious. You may only feel weak or just not right. If it is not clear or if you have any doubt, call for advice. Seek help for chest pain, or it feels different from usual, even if your symptoms are mild. Don't drive yourself. Have someone else drive. If no one can drive you, call 911. If your doctor has given you medicines to take when you have symptoms, take them, but don't delay getting help while trying to find them. [id number] [employer] [place] [address]. All rights reserved. This information is not intended as a substitute for professional medical care. Always follow yourhealthcare professional's instructions. Follow Up Care 11/19/2021 19:50:40 With:your hollow handle bench worker Address: When:[facility] Note Discharge Instructions Thank you for allowing [facility] to assist you with your healthcare needs. The following is importantdischarge information regarding your hospital visit. Diagnosis from Today's Visit Palpitations Tachycardia Increased heart rate What to Do Next Instructions from Your Care Team Please call your hollow handle bench worker tomorrow for further management. On one of your EKGs it did appear like you may have a heart block, type II, however it was not sustained and only for a few beats. Please discuss this with your hollow handle bench worker as it can be a precursor to a more serious condition. Return to the emergency [facility] for chest pain, shortness of breath, lightheadedness, headache, numbness, tingling, weakness, faint or anything concerning to you No qualifying data available. Post Acute Orders No qualifying data available. You Need to Schedule the Following Appointments Follow Up with your hollow handle bench worker When Within 1-2 days Where: Allergies Bee Stings (Anaphylactic reaction) Dakins Full Strength Solution (Skin irritation) Metal unspecified (Unknown) Tape (Rash) codeine (Headache) cortisone (Flush) Medications Please ask your primary doctor or pharmacist before taking any other medication not listed, including over the counter drugs, herbal medications, vitamins and or supplements as they may interact withyour home medications. What How Much When Instructions Last Dose Unchanged EPINEPHrine (EpiPen 2-Eze 0.3 mg injectable kit) 1 kit Intramuscular As Directed as needed for Allergic reaction Duration: 2 Doses dispense one 2 pack auto injector kit Unchanged ergocalciferol (Vitamin D2 1.25 mg (50,000 intl units) oral capsule) 1 cap by mouth Every week Unchanged ibuprofen (Advil 200 mg oral tablet) See instructions tab(s) mg Oral q6hr Unchanged levothyroxine (Synthroid 112 mcg (0.112 mg) oral tablet) 1 tab(s) by mouth Once a day Unchanged liothyronine (Cytomel 5 mcg oral tablet) 1 tab(s) by mouth Every day Unchanged meloxicam (meloxicam 7.5 mg oral tablet) 1 tab(s) by mouth Once a day Unchanged metoprolol (metoprolol tartrate 25 mg oral tablet) 1 tab(s) by mouth Two (2) times a day Unchanged multivitamin with minerals (PreserVision AREDS 2 oral capsule) 2 cap by mouth Once a day Unchanged oxyCODONE (oxyCODONE 5 mg oral tablet ( IMMEDIATE release )) 1 tab(s) by mouth Every 6 hours as needed for for pain Unchanged pantoprazole (pantoprazole 40 mg oral enteric coated tablet) 1 tab(s) by mouth Two (2) times a day Duration: 90 Days Unchanged propafenone (propafenone 225 mg oral tablet) 1 tab(s) by mouth Every 8 hours Please take this list to your next doctor s visit. Bring all medications you take, including over the counter medications, herbals and other supplements with you to your doctor s visit. Patients and families are reminded to discard old lists and to update any records with all medication providers or retail pharmacies. Education Materials Your Heart s Electrical System The heartbeat is the rhythmic contraction of the heart muscle's 4 chambers. The heart muscle has a special system that creates and sends electrical signals to activate these 4 chambers. First, a signal generated in the right upper chamber of the heart tells the 2 upper chambers (atria) to squeeze. This moves blood to the 2 lower chambers (ventricles). Next, electrical signals tell the ventricles to squeeze. This moves blood to the lungs, brain, heart, and body. Electrical signals Groups of special cells in the right atrium, called nodes, send out the heart s electrical signals.The signals travel along pathways. In the ventricles, these pathways are called bundle branches. The SA (sinoatrial) node This sets the pace of the heartbeat. It starts each beat by releasing a signal telling the atria tosqueeze. The AV (atrioventricular) node This receives the signal from the atria. It is the gateway between the atria and the ventricles. The AV node channels the signal into the ventricles. The Bundle branches These carry the signal through the ventricle kim. As the signal moves through the ventricles, theventricles squeeze. [id number] [place], [place] [id number]. All rights reserved. This information is not intended as a substitute for professional medical care. Always follow yourhealthcare professional's instructions. About Arrhythmias Electrical impulses cause the normal heart to beat 60 to 100 times a minute while at rest. These impulses come from a natural pacemaker deep inside the heart muscle. Each impulse causes the heart muscle to contract. This causes the blood to flow through the heart and out to the tissues and organs of your body. An arrhythmia is a change from the normal speed or pattern of these electrical impulses. This can cause the heart to beat too fast (tachycardia); or too slow (bradycardia); or in an unsteady pattern (irregular rhythm). Symptoms of arrhythmias Different people experience arrhythmias differently. Sometimes they may not have symptoms, but justnotice a change in their pulse. Symptoms can include: Fluttering feeling in the chest Shortness of breath Chest pain or pressure Neck fullness Lightheadedness or dizziness Fainting or almost fainting Palpitations (the sense that your heart is fluttering or beating fast or hard or irregularly) Tiredness, fatigue, or weakness Cardiac arrest Causes of arrhythmias Arrhythmias are most often due to heart disease such as: Coronary artery disease Heart valve disease Enlarged heart High blood pressure Heart failure Other causes of arrhythmia include: Certain medicines (such as asthma inhalers and decongestants) Some herbal supplements Cardiac stimulant drugs (such as cocaine, amphetamine, diet pills, certain decongestant cold medicines, caffeine, and nicotine) Excessive alcohol use Anxiety and panic disorder Thyroid disease Anemia Diabetes Sleep apnea Obesity Congenital heart disease Cardiac genetic diseases Arrhythmias can often be prevented. The cause and type of arrhythmia determines the best treatment.Sometimes your doctor may want to monitor your heart rate over a 24-hour period or longer. This canhelp identify the cause of your arrhythmia and find the best treatment. This can be done with a Holter monitor, a portable EKG recording device attached by wires to your chest. Or you may get an event monitor, which you can place over the skin in front of your heart to record heart rhythms. You cancarry this with you as you go about your routine activities during the monitoring period. Implantable loop recorders may also be used to monitor the heart rhythm for up to 2 years. This miniature device is placed underneath the skin overlying the heart. Home care The following guidelines will help you care for yourself at home: Avoid cardiac stimulants (such as cocaine, amphetamine, diet pills, certain decongestant cold medicines, caffeine, and nicotine). If you smoke, stop smoking. Contact your doctor or a local stop-smoking program for help. Tell your doctor about any prescription, egxy-rll-jjwiqjx, or herbal medicines you take. These may be affecting your heart rhythm. Follow-up care Follow up with your healthcare provider, or as advised. If a Holter monitor has been recommended, contact the hollow handle bench worker you have been referred to as soon as you can picker box operator the device. Other outpatient tests may also be arranged for you at that time. Call 911 This is the fastest and safest way to get to the emergency department. The paramedics can also start treatment on the way to the hospital, if needed. Don't wait until your symptoms are severe to call 911. Other reasons to call 911 besides chest paininclude: Chest, shoulder, arm, neck, or back pain Shortness of breath Feeling lightheaded, faint, or dizzy Unexplained fainting Rapid heart beat Slower than usual heart rate compared to your normal Very irregular heartbeat Chest pain (angina) with weakness, dizziness, heavy sweating, nausea, or vomiting Extreme drowsiness, or confusion Weakness of an arm or leg or one side of the face Difficulty with speech or vision When to seek medical advice Remember, things are not always like they are on TV. Sometimes it is not so obvious. You may only feel weak or just not right. If it is not clear or if you have any doubt, call for advice. Seek help for chest pain, or it feels different from usual, even if your symptoms are mild. Don't drive yourself. Have someone else drive. If no one can drive you, call 911. If your doctor has given you medicines to take when you have symptoms, take them, but don't delay getting help while trying to find them. [id number] [employer]. [address] [place] [address]. All rights reserved. This information is not intended as a substitute for professional medical care. Always follow yourhealthcare professional's instructions. Additional Information VACCINATE! IT SAVES LIVES! Members of the community who have not yet received the COVID-19 vaccine and would like to receive it can visit one of [facility] vaccine clinics. There are many vaccine clinic locations within the [facility]. For locations and available times, please visit [email or web address]. It is important to note that some COVID mobile vaccine clinics are held outdoors and may be canceled in rainy orstormy conditions. To learn more about pediatric vaccinations (ages 5-11), we invite you to visit the [facility] webpage. [email or web address] learn more about the COVID-19 vaccine, we invite you to visit the [facility] website for a list of frequently asked questions. [email or web address] [facility] Patient Portal Access Instructions: Stay connected with your healthcare team and access your personal medical information anytime with the [facility] Patient Portal. If you would like a full copy of your medical records please contact the [facility] Medical Records Department Wednesday through Wednesday between 8a.m. and 4:30p.m. Please follow the directions below to access the portal: 1.Access the email account you provided upon registration to the [facility].2.Look for an invitation email from [facility].3.Open the email and access the invitation link: Accept Invitation to [facility].Fill in the required kwok to create your account. Sign into www.[employer] with your username and password that you created in the above steps to stay up to date. You can then view a summary of results, a summary of your visits, and the ability to download your summaries to your computer or send the information securely to a physician. Remember that your healthcare information is confidential, so carefully consider who you will allow to register on the [facility] Patient Portal for access to your information. You can also access the [facility] Patient Portal on the [employer] lilia. Simply click on Health Records under [facility] and then click on the [employer] logo. HOW TO SAFELY DISPOSE OF PRESCRIPTION MEDICATIONS Please use one of the following methods to safely dispose of your unused medications. 1.Use a drug disposal kit: the drug disposal pouch allows you to safely discard your old and unuseddrugs. Ask your nurse to give you one when you are discharged.2.Visit a local take-back location: Many local pharmacies and police departments have programs that collect old and unwanted prescriptiondrugs. Call your local pharmacy or go to http://[employer]/8X5Wj3l to find one close to you.3.Make use of household items: Use cat litter or old coffee grounds to dispose medications if other options arenot available. Mix your drugs with these household products, seal them in an airtight container andthrow it into the garbage. Call [facility]: [phone] to be sure your drugs can be disposed of in this way. Some medicines may require a different approach.4.Never flush your medications down the toilet. IF YOU HAVE BEEN PRESCRIBED AN OPIOIDS FOR PAIN If you have been prescribed an opioid (such as hydrocodone, oxycodone or morphine), it is critical to understand the possible side effects and risks of opioid pain medications. Even when taken as directed, opioids can have several side effects including: Tolerance, meaning you might need to take more of a medication for the same pain relief. Nausea, vomiting and/or constipation. Sleepiness, dizziness, dry mouth, confusion, depression or itching. Physical dependence, meaning you have withdrawal symptoms when a medication is stopped ? this can develop within a few days. KNOW YOUR RESPONSIBILITIES It is important to know exactly how much and how often to take the opioid pain medications you are prescribed. Never take opioids in higher amounts or more often than prescribed. Do not combine opioids with alcohol or other drugs that cause drowsiness, such as benzodiazepines, also known as benzos,including diazepam and alprazolam, muscle relaxants or sleep aids. Never sell or share prescriptionopioids. This is illegal. Store opioids in a secure place and out of reach of others (including children, family, friends and visitors). The last page(s) of this document has been signed and retained as a CHART COPY Signatures Patient Education Materials Your Heart's Electrical System About Arrhythmias Medication Leaflets My discharge plan and instructions have been reviewed and explained to me and I,BELLA MORILLO understand my current condition and have read and understand these discharge instructions. I have received a written copy of the plan/instructions. If I have questions, I am aware that I should contact my doctor. Patient/Broiler Chef Or Cook Signature: Date/Time: Relationship to Patient: Witness Name/Signature: Date/Time: [facility] Note ORIGINAL EXAMINATION: ONE XRAY VIEW OF THE CHEST11/19/2021 9:56 pm COMPARISON: 10/23/2019 HISTORY: ORDERING SYSTEM PROVIDED HISTORY: Reason for Exam: SOB/cough/fever FINDINGS: The cardiomediastinal contours are normal. Mild atherosclerosis noted of the aorta. There is no consolidation. No pleural fluid or pneumothorax. No aggressive osseous lesions identified.Prominent costochondral calcifications seen. IMPRESSION: No acute radiographic findings. Interpreted by: Jose [place] MD Preliminary Report By: Jose [place] MD Electronically signed By Jose [place] MD Dictated Date: 11/19/2021 10:04:49 PM Prelim Date: 11/19/2021 10:06:39 PM Sign Date: 11/19/2021 10:06:39 PM Ordering Provider: JANEEN ACRLISLE [facility]07-27-2022 Note ORIGINAL EXAMINATION: ONE XRAY VIEW OF THE CHEST11/19/2021 9:56 pm COMPARISON: 10/23/2019 HISTORY: ORDERING SYSTEM PROVIDED HISTORY: Reason for Exam: SOB/cough/fever FINDINGS: The cardiomediastinal contours are normal. Mild atherosclerosis noted of the aorta. There is no consolidation. No pleural fluid or pneumothorax. No aggressive osseous lesions identified.Prominent costochondral calcifications seen. IMPRESSION: No acute radiographic findings. Interpreted by: Jose [place] MD Preliminary Report By: Jose [place] MD Electronically signed By Jose [place] MD Dictated Date: 11/19/2021 10:04:49 PM Prelim Date: 11/19/2021 10:06:39 PM Sign Date: 11/19/2021 10:06:39 PM [facility] of Present illness Narrative* Gaye Rowell PA-C - 10/08/2021 10:25 AM EDT SUBJECTIVE [place] Morillo is a 66 year old woman who presents for her annual exam. Last pap- 09/18/20. Last mammo- 10/03/20. Last dexascan- states earlier this year with [facility]. States she has worsening osteoporosis but is hesitant to try medication. Gave info on Evenity and discussed importance of treating osteoporosis with a high risk of fracture. No LMP recorded. Patient is postmenopausal. Had a colonoscopy done in [place] in 2020. Confirms vaginal dryness mainly with intercourse. Discussed using lubricant gel and she states it works well. Denies vaginal itching, burning, discharge, or bleeding. Discussed health maintenance, including regular aerobic exercise, low sugar diet, and periodic exams. She had R knee surgery in June 2021. HISTORIES FAMILY HISTORY Problem Relation Age of Onset other (stomach cancer) Mother Colon Cancer Mother Hypothyroidism Mother Melanoma Mother 76 Arrythmias Mother Prostate Cancer Father Coronary Artery Disease Father Hypertension Father Hyperlipidemia Father Heart disease Father cardiac murmur Diabetes Maternal Grandmother Heart disease Paternal Grandmother quadruple bypass and of a heart attack at age 75 Breast Cancer Maternal Aunt 42 other (liver) Maternal Aunt Graves Disease Other PAST MEDICAL HISTORY Diagnosis Date Anemia Atrial fibrillation (HCC) Atrophic vaginitis Dyspareunia in female Family history of breast cancer Family history of colon cancer offered Colaris MyRisk; pt needs to complete genetic counseling Family history of malignant melanoma Femur fracture (HCC) trip/fall from standing height High risk for hip fracture 05/2019 FRAX Hip 3% 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 Knee pain Macular degeneration Migraine with aura Osteopenia 2010 PAC (premature atrial contraction) Palpitations Pituitary disorder (HCC) prolactin elevation on reglan Postmenopausal osteoporosis 2015 Thyrotoxicosis without mention of goiter or other cause Uterine fibroid Vitamin D deficiency PAST SURGICAL HISTORY Procedure Laterality Date AFIB ABLATION/PULM VEIN ISOLATION 2005 pulmonary vein ablation for A fib AFIB ABLATION/PULM VEIN ISOLATION 2014 ARTHROTOMY W/MENISCUS REPAIR KNEE Left 1966 Open knee reconstruction ARTHRP KNE CONDYLE&PLATU MEDIAL&LAT COMPARTMENTS Left x2 ARTHRP KNE CONDYLE&PLATU MEDIAL&LAT COMPARTMENTS Left 11/08/2019 revision, Dr. Reyes COLONOSCOPY 2009 due in 5 years COLONOSCOPY 2020 wnl due in 3 years FINGER SURGERY HX Right trigger finger KNEE SURGERY HX Left x6 KNEE SURGERY HX Left 1997 LEG SURGERY HX femur fracture SPINE SURGERY HX 2011 Social History Tobacco Use Smoking status: Former Smoker Packs/day: 0.50 Years: 10.00 Pack years: 5.00 Types: Cigarettes Quit date: 08/18/1987 Years since quittin.1 Smokeless tobacco: Never Used Vaping Use Vaping Use: Never used Substance Use Topics Alcohol use: Yes Alcohol/week: 7.5 - 10.0 standard drinks Types: 3 - 4 Glasses of Wine (5oz) per week Comment: socially Drug use: No ACTIVE PROBLEM LIST Paroxysmal Atrial Fibrillation (Hcc) PAIN JOINT, KNEE STIFF JOINT LOWER LEG Hypothyroidism Unspecified Vitamin D Deficiency Hypothyroidism Due to Jasen's Thyroiditis Palpitations Pac (Premature Atrial Contraction) Autoimmune Thyroiditis Displacement of Lumbar Intervertebral Disc Without Myelopathy Primary Osteoarthritis of Right Knee Trochanteric Bursitis of Right Hip At Risk for Stroke Anemia Bursitis of Elbow Chronic Constipation Fracture of Femur (Hcc) Gastroesophageal Reflux Disease Hypomagnesemia Macular Drusen Migraine Without Aura Osteoporosis Prosthetic Joint Implant Failure (Hcc) Raynaud's Disease Headache History of Atrial Fibrillation Kidney Stone Cataract Decreased Glomerular Filtration Rate (Gfr) Degeneration of Intervertebral Disc of Lumbar Region Macular Degeneration Hematuria Syndrome Hiatal Hernia ALLERGIES Allergen Reactions Bees Anaphylaxis Codeine Intolerance migraines Adhesive Tape (Marianne* Rash, Itching Adhesive Tape-Silic* Unknown Bee Sting Anaphylaxis Bee Venom Protein (* Anaphylaxis Cortisone Other: See Comments Turns red Dakin's [Sodium Hyp* Unknown Nickel Unknown Vanadium Unknown Current Outpatient Medications Medication Sig pantoprazole DR (PROTONIX) 40 mg tablet Take 40 mg by mouth twice daily. metoprolol tartrate, short acting, (LOPRESSOR) 25 mg tablet Take 1 tablet by mouth twice daily. liothyronine (CYTOMEL) 5 mcg tablet Take 1 tablet by mouth twice daily. vit A/vit C/vit E/zinc/copper (ICAPS AREDS ORAL) Take by mouth. Propafenone HCl (RYTHMOL) 225 mg tablet TAKE ONE TABLET BY MOUTH EVERY 8 HOURS cholecalciferol, Vitamin D3, (VITAMIN D3) 1,250 mcg (50,000 unit) cap capsule Take by mouth. ibuprofen-acetaminophen (ADVIL DUAL ACTION) 125-250 mg tab Take 2 tablets by mouth twice daily as needed. levothyroxine (SYNTHROID) 112 mcg tablet Take 1 tablet by mouth once daily. EPINEPHrine (EPIPEN) 0.3 mg/0.3 mL auto-injector EpiPen 0.3 mg/0.3 mL (1:1,000) IM Injector multivitamin tablet Take 1 tablet by mouth once daily. metoprolol tartrate, short acting, (LOPRESSOR) 25 mg tablet TAKE 1 TABLET BY MOUTH TWICE A DAY (Patient not taking: Reported on 10/08/2021) No current facility-administered medications for this visit. REVIEW OF SYSTEMS GENERAL: No weight loss, malaise or fevers HEENT: No changes in hearing or vision NECK: Negative for lumps, goiter, pain and significant neck swelling RESPIRATORY: Negative for cough, wheezing, dyspnea or shortness of breath CARDIOVASCULAR: Negative for chest pain or palpitations GI: Negative for abdominal discomfort, blood in stools or black stools, change in bowel habit, diarrhea, nausea, vomiting, constipation : No history of dysuria, frequency or incontinence SEWAGE PLANT ATTENDANT: Negative for abnormal vaginal bleeding, abnormal vaginal discharge or Breast symptoms ENDOCRINE: Negative for cold or heat intolerance, polyuria, polydipsia and goiter NEURO: No history of headaches, syncope, paralysis, seizures or tremors OBJECTIVE BP 142/82 Ht 5' 7 (1.70m) Wt 162 lb (73.5kg) BMI 25.37 kg/(m^2). HEENT: Within normal limits NECK: Supple, no thyromegaly BREASTS: No masses, no nipple discharge HEART: Regular rate and rhythm without murmur, rub, or gallop LUNGS: Clear bilaterally to auscultation ABDOMEN: No masses, non tender, no hernias, no hepatosplenomegaly PELVIC: EGBUS: No lesions, slightly atrophic appearance VAGINA: No discharge, no blood, no lesions CERVIX: No lesions, non tender UTERUS: Anteverted, normal size, non tender ADNEXA: Non tender, no masses RECTOVAGINAL: Not examined-colonoscopy last year EXTREMITIES: No edema, no calf tenderness NEUROLOGICAL: Grossly intact ASSESSMENT/PLAN: 1. Women's annual routine gynecological examination - ICD9: V72.31, ICD10: Z01.419 (primary diagnosis) - Completed pelvic and breast exam - Completed pap exam - Encouraged monthly BSE - Follow up for annual exam in one year. 2. Screening for malignant neoplasm of cervix - ICD9: V76.2, ICD10: Z12.4 - Completed pelvic and breast exam - Completed pap exam - Follow up for annual exam in one year. 3. Breast cancer screening by mammogram - ICD9: V76.12, ICD10: Z12.31 - Completed breast exam - Encouraged monthly BSE - Follow up for annual exam in one year. 4. Postmenopausal osteoporosis - ICD9: 733.01, ICD10: M81.0 - Reviewed the need for Calcium and Vitamin D supplements and weight bearing exercise as tolerated OMAR Martel PA-S Return in about 1 year (around 10/08/2022) for Annual Exam. documented [facility]03[facility] Miscellaneous Notes* Telephone Encounter - Paola Key (Pss) - 07/24/2021 9:11 AM EDT Patient established with another provider closer to home, since Dr Romo moved to [place] Please advise, declined future appointments July 24, 2021 9:12 AM Paola HENSON * Telephone Encounter - Paola Key (Pss) - 07/23/2021 9:14 AM EDT 2nd attempt to contact patient Left VM July 23, 2021 9:14 AM Paola HENSON * Telephone Encounter - Edith Tompkins - 07/22/2021 11:34 AM EDT Lm to call regarding refills Needs ov if going to cont with dr romo 90 day sent to pharmacy to hold over Lm to call to feroz Tompkins July 22, 2021 11:36 AM * Telephone Encounter - Sridhar Romo MD - 07/22/2021 10:36 AM EDT This patient, or this patient's pharmacy recently sent in a refill request. The patient has not been seen in quite some time and is due for an appointment with me. Please contact her, and see if they still plan on following up with me. If so, get them on the schedule, then notify me - and I can make sure they have refills to get themto that appointment. I will do a 90 day supply, today, to their pharmacy. Liothyronine If they are going to follow up elsewhere, regarding this issue, then further refills will need to be with the new physician. Sridhar Romo MD documented in this encounterNorwalk [facility]03-29-2022 Miscellaneous Notes* Telephone Encounter - Laron Lares MA - 07/22/2021 9:12 AM EDT MICHEL 05/02/2020 NOV None at this time Pharmacy electronically requesting refills as follows: Pending Prescriptions Disp Refills LIOTHYRONINE 5 MCG TABLET 180 tablet 3 Sig: Take 1 tablet by mouth once daily. PANCHO: No Please review and advise. Laron Lares MA documented in this encounterNorwalk [facility]03-29-2022 Miscellaneous Notes* Telephone Encounter - Jasmyn Wood LPN - 07/22/2021 7:35 AM EDT Patient's request for medication is as follows: Pending Prescriptions Disp Refills METOPROLOL TARTRATE 25 MG TABLET 180 tablet 3 Sig: TAKE 1 TABLET BY MOUTH TWICE A DAY PANCHO: Yes Last seen 05/26/2021. Follow up scheduled for 06/08/2022. Prescription(s) as above. Please process accordingly. Jasmyn Wood LPN documented in this encounterNorwalk [facility]03-29-2022 Miscellaneous Notes* Telephone Encounter - Lilia Martinez APRN.POOJA - 07/22/2021 7:10 AM EDT Refills for metoprolol sent to preferred pharmacy. Lilia Martinez APRN.POOJA * Telephone Encounter - Chiquis David RN - 07/21/2021 4:27 PM EDT Patient's request for medication is as follows: Pending Prescriptions Disp Refills METOPROLOL TARTRATE 25 MG TABLET 180 tablet 3 Sig: Take 1 tablet by mouth twice daily. PANCHO: No Last OV dated 05/26/21 with Twyla Martinez APRN Prescription(s) as above. Please process accordingly. 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 Her original knee surgery was in 1974. She is had over 10 surgeries on the left knee including 3 total knee replacements. Her last surgery was about a year ago. She has an allergy to nickel. Her surgery was performed at [facility] in [place]. Her last surgery she had extensor mechanism disruption which they attempted to repair with mesh according to the patient. That is gone on to fail. She does wear a brace occasionally. She remains fairly active despite. She presents today for further evaluation. * Adult patient history sheet was filled out by the patient today in clinic and will be scanned into the EMR. This includes Past Medical History, Past Surgical History, Medications, Allergies, Social History, Family History and 30 point review of systems. * Awake alert and oriented x3, no acute distress, appears stated age * Range of motion from 0-115 degrees * Stable to varus/valgus * No joint line tenderness to palpation * Moderate effusion * SILT in a bhavesh/saph/per/tib distribution * 1/ knee extension 4/5 df/pf/ehl * dorsalis pedis and posterior tibial pulse * no popliteal lymphadenopathy * no other overlying lesions * mood: euthymic * Respirations non labored * Well-healed previous surgical scars * She does have a large fluid collection which feels like it superficial although could easily communicate with the joint given her history * No signs of surrounding infection * Plain films were reviewed by myself in clinic today. She has a revision total knee arthroplasty in place with no gross signs of loosening. Alignment appears adequate. Significant patella alto consistent with her patellar tendon disruption. * We discussed further conservative treatment with her today in clinic. I think her reconstructive options are extremely limited. I think there is a lot of ways to make her worse than she is now. She remains quite functional. She can continue to wear her brace for stability. We did discuss possible revision extensor mechanism repair and knee fusion. It sounds like at some point they were discussinga flap with her as well. My guess is she does not have much anterior soft tissue to work with in terms of her repair. I do not think further surgery at this time is in her best interest. All of her questions were answered. She will follow-up on an as-needed basis. * This note was created using voice recognition software and was not corrected for typographical or grammatical errors.. [id number] Work Phone: 1(318) 213-728006-19-2018 History of Past illness Narrative* Problem Noted Date Resolved Date Hypertension 10/12/2017 08/09/2018 Follow-up examination, following other surgery 0 07/16/2008 10/04/2015 Unspecified hypothyroidism 10/02/200210/03 Essential hypertension, benign 0 08/09/2018 documented as of this encounter (statuses as of 07/22/2021) [address]19-2018 History of Past illness Narrative* Problem Noted Date Resolved Date Hypertension 10/12/2017 08/09/2018 Follow-up examination, following other surgery 0 07/16/2008 10/04/2015 Unspecified hypothyroidism 10/02/200210/03 Essential hypertension, benign 0 08/09/2018 documented as of this encounter (statuses as of 07/22/2021) [address]19-2018 History of Past illness Narrative* Problem Noted Date Resolved Date Hypertension 10/12/2017 08/09/2018 Follow-up examination, following other surgery 0 07/16/2008 10/04/2015 Unspecified hypothyroidism 10/02/200210/03 Essential hypertension, benign 0 08/09/2018 documented as of this encounter (statuses as of 07/22/2021) [address]19-2018 History of Past illness Narrative* Problem Noted Date Resolved Date Hypertension 10/12/2017 08/09/2018 Follow-up examination, following other surgery 0 07/16/2008 10/04/2015 Unspecified hypothyroidism 10/02/200210/03 Essential hypertension, benign 0 08/09/2018 documented as of this encounter (statuses as of 08/28/2021) [address]19-2018 History of Past illness Narrative* Problem Noted Date Resolved Date Hypertension 10/12/2017 08/09/2018 Follow-up examination, following other surgery 0 07/16/2008 10/04/2015 Unspecified hypothyroidism 10/02/200210/03 Essential hypertension, benign 0 08/09/2018 documented as of this encounter (statuses as of 10/08/2021) [address]19-2018 History of Past illness Narrative* Problem Noted Date Resolved Date Hypertension 10/12/2017 08/09/2018 Follow-up examination, following other surgery 0 07/16/2008 10/04/2015 Unspecified hypothyroidism 10/02/200210/03 Essential hypertension, benign 0 08/09/2018 documented as of this encounter (statuses as of 04/04/2022) [address]19-2018 History of Past illness Narrative* Problem Noted Date Resolved Date Hypertension 10/12/2017 08/09/2018 Follow-up examination, following other surgery 0 07/16/2008 10/04/2015 Unspecified hypothyroidism 10/02/200210/03 Essential hypertension, benign 0 08/09/2018 documented as of this encounter (statuses as of 04/07/2022) [address]19-2018 History of Past illness Narrative* Problem Noted Date Resolved Date Hypertension 10/12/2017 08/09/2018 Follow-up examination, following other surgery 0 07/16/2008 10/04/2015 Unspecified hypothyroidism 10/02/200210/03 Essential hypertension, benign 0 08/09/2018 documented as of this encounter (statuses as of 05/18/2022) [address]19-2018 History of Past illness Narrative* Problem Noted Date Resolved Date Hypertension 10/12/2017 08/09/2018 Follow-up examination, following other surgery 0 07/16/2008 10/04/2015 Unspecified hypothyroidism 10/02/200210/03 Essential hypertension, benign 0 08/09/2018 documented as of this encounter (statuses as of 05/28/2022) [address]19-2018 History of Past illness Narrative* Problem Noted Date Resolved Date Hypertension 10/12/2017 08/09/2018 Follow-up examination, following other surgery 0 07/16/2008 10/04/2015 Unspecified hypothyroidism 10/02/200210/03 Essential hypertension, benign 0 08/09/2018 documented as of this encounter (statuses as of 06/10/2022) [address]19-2018 History of Past illness Narrative* Problem Noted Date Resolved Date Hypertension 10/12/2017 08/09/2018 Follow-up examination, following other surgery 0 07/16/2008 10/04/2015 Unspecified hypothyroidism 10/02/200210/03 Essential hypertension, benign 0 08/09/2018 documented as of this encounter (statuses as of 06/18/2022) [address]19-2018 History of Past illness Narrative* Problem Noted Date Resolved Date Hypertension 10/12/2017 08/09/2018 Follow-up examination, following other surgery 0 07/16/2008 10/04/2015 Unspecified hypothyroidism 10/02/200210/03 Essential hypertension, benign 0 08/09/2018 documented as of this encounter (statuses as of 07/20/2022) [place] [id number] History of Past illness Narrative* Problem Noted Date Resolved Date Hypertension 10/12/2017 08/09/2018 Follow-up examination, following other surgery 0 07/16/2008 10/04/2015 Unspecified hypothyroidism 10/02/200210/03 Essential hypertension, benign 0 08/09/2018 documented as of this encounter (statuses as of 07/21/2022) [address]19-2018 History of Past illness Narrative* Problem Noted Date Resolved Date Hypertension 10/12/2017 08/09/2018 Follow-up examination, following other surgery 0 07/16/2008 10/04/2015 Unspecified hypothyroidism 10/02/200210/03 Essential hypertension, benign 0 08/09/2018 documented as of this encounter (statuses as of 10/12/2022) [address]19-2018 History of Past illness Narrative* Problem Noted Date Diagnosed Date Resolved Date Hypertension 10/12/2017 08/09/2018 Follow-up examination, chika armas other surgery 07/16/2008 10/04/2015 Unspecified hypothyroidism 10/02/2002 0 10/04/2015 Essential hypertension, benign 08/09/2018 documented as of this encounter (statuses as of 04/08/2023) [address]19-2018 History of Past illness Narrative* Problem Noted Date Diagnosed Date Resolved Date Hypertension 10/12/2017 08/09/2018 Follow-up examination, chika armas other surgery 07/16/2008 10/04/2015 Unspecified hypothyroidism 10/02/2002 0 10/04/2015 Essential hypertension, benign 08/09/2018 documented as of this encounter (statuses as of 05/28/2023) [address]19-2018 History of Past illness Narrative* Problem Noted Date Diagnosed Date Resolved Date Hypertension 10/12/2017 08/09/2018 Follow-up examination, chika armas other surgery 07/16/2008 10/04/2015 Unspecified hypothyroidism 10/02/2002 0 10/04/2015 Essential hypertension, benign 08/09/2018 documented as of this encounter (statuses as of 06/09/2023) [address]19-2018 History of Past illness Narrative* Problem Noted Date Diagnosed Date Resolved Date Hypertension 10/12/2017 08/09/2018 Follow-up examination, follo wing other surgery 07/16/2008 10/04/2015 Unspecified hypothyroidism 10/02/2002 0 10/04/2015 Essential hypertension, benign 08/09/2018 documented as of this encounter (statuses as of 06/11/2023) [address]19-2018 History of Past illness Narrative* Problem Noted Date Diagnosed Date Resolved Date Hypertension 10/12/2017 08/09/2018 Follow-up examination, chika armas other surgery 07/16/2008 10/04/2015 Unspecified hypothyroidism 10/02/2002 0 10/04/2015 Essential hypertension, benign 08/09/2018 documented as of this encounter (statuses as of 06/14/2023) [facility] History of Past illness Narrative* Problem Noted Date Diagnosed Date Resolved Date Hypertension 10/12/2017 08/09/2018 Follow-up examination, chika armas other surgery 07/16/2008 10/04/2015 Unspecified hypothyroidism 10/02/2002 0 10/04/2015 Essential hypertension, benign 08/09/2018 documented as of this encounter (statuses as of 06/15/2023) [address]19-2018 History of Past illness Narrative* Problem Noted Date Diagnosed Date Resolved Date Hypertension 10/12/2017 08/09/2018 Follow-up examination, chika armas other surgery 07/16/2008 10/04/2015 Unspecified hypothyroidism 10/02/2002 0 10/04/2015 Essential hypertension, benign 08/09/2018 documented as of this encounter (statuses as of 06/15/2023) [facility] History of Past illness Narrative* Problem Noted Date Diagnosed Date Resolved Date Hypertension 10/12/2017 08/09/2018 Follow-up examination, chika armas other surgery 07/16/2008 10/04/2015 Unspecified hypothyroidism 10/02/2002 0 10/04/2015 Essential hypertension, benign 08/09/2018 documented as of this encounter (statuses as of 06/16/2023) [facility] History of Past illness Narrative* Problem Noted Date Diagnosed Date Resolved Date Hypertension 10/12/2017 08/09/2018 Follow-up examination, chika armas other surgery 07/16/2008 10/04/2015 Unspecified hypothyroidism 10/02/2002 0 10/04/2015 Essential hypertension, benign 08/09/2018 documented as of this encounter (statuses as of 07/12/2023) [facility] FLAKITO AWAD: PERFORM, SIGN, VERIFY Event Display: Anesthesiology Consultation Authored Date: Patient: BELLA MORILLO Age: 68 years Sex: Female : 1955 Associated Diagnoses: None Author: FLAKITO AWAD Assessment Postanesthesia assessment Vitals: Vital signs from flowsheet : Vital Signs 03/06/2024 11:55 EST Heart Rate Monitored 73 bpm bpm Respiratory Rate - Anes 13 br/min br/min Systolic Blood Pressure Non-Invasive 139 mmHg mmHg Diastolic Blood Pressure Non-Invasive 68 mmHg mmHg 03/06/2024 11:50 EST Respiratory Rate - Anes 18 br/min br/min Systolic Blood Pressure Non-Invasive 154 mmHg mmHg Diastolic Blood Pressure Non-Invasive 134 mmHg mmHg 03/06/2024 11:13 EST Temperature Temporal Artery 36.6 DegC Peripheral Pulse Rate 68 bpm Respiratory Rate 10 br/min <LLOW Systolic Blood Pressure Non-Invasive 144 mmHg HI Diastolic Blood Pressure Non-Invasive 72 mmHg . Mental status: alert & oriented x 4. Respiratory function: lungs are clear to auscultation. Respiratory support: none. CV function: Normal rate. Cardiovascular support: none. Pain. Nausea status: see nursing documentation of medications. Postoperative hydration status: within normal limits. Digitally Signed by FLAKITO AWAD on 03/06/2024 12:01 PM * FLAKITO AWAD: PERFORM, SIGN, VERIFY Event Display: Anesthesiology Consultation Authored Date: Patient: BELLA MORILLO Age: 68 years Sex: Female : 1955 Associated Diagnoses: None Author: FLAKITO AWAD Preoperative Information Time of last food or liquid consumption: 03/05/2024 18:15:00 Anesthesia history Patient's history: negative. Family's history: negative. Review of Systems Ear/Nose/Mouth/Throat: Negative except as documented in history of present illness. Respiratory: Negative except as documented in history of present illness. Cardiovascular: Negative except as documented in history of present illness. Gastrointestinal: Negative except as documented in history of present illness. Genitourinary: Negative except as documented in history of present illness. Endocrine: Negative except as documented in history of present illness. Musculoskeletal: Negative except as documented in history of present illness. Integumentary: Negative except as documented in history of present illness. Neurologic: Negative except as documented in history of present illness. Health Status Allergies: Allergic Reactions (Selected) Severity Not Documented Bee Stings- Anaphylactic reaction. Codeine- Headache. Cortisone- Flush. Dakins Full Strength Solution- Skin irritation. Metal unspecified- Unknown. Tape- Rash., Allergies (6) ActiveSeverityReaction Bee StingsAnaphylactic reaction TapeRash codeineHeadache cortisoneFlush Metal unspecifiedUnknown Dakins Full Strength SolutionSkin irritation Current medications: (Selected) Inpatient Medications Ordered 0.9% NaCl 500 mL 500 mL: 20 mL/hr, Intravenous LR 1,000 mL: 50 mL/hr, Intravenous Prescriptions Prescribed DME MISCellaneous: See Instructions, dispense 100 2x3 inches telfa pads; dx S41.111A., 100 EA, 1 Refill(s) EpiPen 2-Eze 0.3 mg injectable kit: 0.3 mg, 1 kit, Intramuscular, AsDirected, for 2 dose(s), dispense one 2 pack auto injector kit, PRN: Allergic reaction, 1 kit(s), 1 Refill(s) pantoprazole 40 mg oral enteric coated tablet: 40 mg, 1 tab(s), Oral, qDay, for 90 day(s), 90 tab(s), 3 Refill(s) Documented Medications Documented Advil 200 mg oral tablet: See Instructions, tab(s) mg Oral q6hr, 0 Refill(s) Reclast: See Instructions, mg Intravenous Yearly, 0 Refill(s) Synthroid 112 mcg (0.112 mg) oral tablet: 112 mcg, 1 tab(s), Oral, qDay, 30 tab(s), 0 Refill(s) Vitamin D2 1.25 mg (50,000 intl units) oral capsule: 50,000 International_Unit, 1 cap(s), Oral, qmonth, 4 cap(s), 0 Refill(s) calcitriol 0.25 mcg oral capsule: 0.25 mcg, 1 cap(s), Oral, Mon/Wed/Fri, 0 Refill(s) liothyronine 25 mcg oral tablet: 37.5 mcg, 1.5 tab(s), Oral, Daily, 0 Refill(s) metoprolol tartrate 25 mg oral tablet: 25 mg, 1 tab(s), Oral, BID, 60 tab(s), 0 Refill(s) propafenone 225 mg oral tablet: 225 mg, 1 tab(s), Oral, q8h, 90 tab(s), 0 Refill(s), Medications (2) Active Scheduled: (0) Continuous: (2) Lactated Ringers Infusion 1,000 mL 1,000 mL, Intravenous, 50 mL/hr Sodium Chloride 0.9% intravenous solution 500 mL 500 mL, Intravenous, 20 mL/hr PRN: (0) Problem list: Medical Actinic keratosis / SNOMED CT 8293107879 / Confirmed Acute cystitis without hematuria / SNOMED CT 620804801 / Confirmed Anaphylaxis due to insect venom / SNOMED CT 3709808270 / Confirmed Hypochromic anemia / SNOMED CT 582922612 / Confirmed Afib / SNOMED CT 37136558 / Confirmed Premature atrial complex / SNOMED CT 488848005 / Confirmed Blood in urine - hematuria / SNOMED CT 4437146520 / Confirmed Screening for cervical cancer / SNOMED CT 0332814812 / Confirmed Cataract / SNOMED CT 168571174 / Confirmed CKD (chronic kidney disease), stage III / SNOMED CT 7590695305 / Confirmed DDD (degenerative disc disease), lumbar / SNOMED CT 19567701 / Confirmed Macular degeneration / SNOMED CT 2708868563 / Confirmed Former smoker / SNOMED CT 72246325 / Confirmed Family hx of aortic aneurysm / SNOMED CT 5838916961 / Confirmed Not currently working due to disabled status / SNOMED CT 899252939 / Confirmed GERD (gastroesophageal reflux disease) / SNOMED CT 700859522 / Confirmed Hx of spinal surgery / SNOMED CT 312776874 / Confirmed S/P ablation of atrial fibrillation / SNOMED CT 388942222 / Confirmed Right hand pain / SNOMED CT 866234190 / Confirmed Jasen's thyroiditis / SNOMED CT 32305365 / Confirmed Hernia, hiatal / SNOMED CT 966158517 / Confirmed Hypercoagulable state due to atrial fibrillation / SNOMED CT 0549987425 / Confirmed Hyperparathyroidism / SNOMED CT 598759372 / Confirmed Hypothyroid / SNOMED CT 30122513 / Confirmed Immunization due / SNOMED CT 345801478 / Confirmed Nephrolithiasis / SNOMED CT 217403659 / Confirmed Laceration of forehead / SNOMED CT 911081872 / Confirmed Knee osteoarthritis / SNOMED CT 068791878 / Confirmed Osteoporosis / SNOMED CT 437926248 / Confirmed Coccyxdynia / SNOMED CT 5296882467 / Confirmed Right elbow pain / SNOMED CT 694008843 / Confirmed Preop examination / SNOMED CT 175126293 / Confirmed Medicare annual wellness visit, subsequent / SNOMED CT 480091709 / Confirmed Screening for AAA (abdominal aortic aneurysm) / SNOMED CT 589623443 / Confirmed Screening for cardiovascular condition / SNOMED CT 091256351 / Confirmed Immunity status testing / SNOMED CT 952705415 / Confirmed Screening for breast cancer / SNOMED CT 295807532 / Confirmed Screen for colon cancer / SNOMED CT 589192568 / Confirmed Screening due / SNOMED CT 132864437 / Confirmed Right shoulder pain / SNOMED CT 45256677 / Confirmed Skin tear of upper extremity / SNOMED CT 8490731109 / Confirmed Need for hepatitis C screening test / SNOMED CT 372936782 / Confirmed Viral URI with cough / SNOMED CT 692844903 / Confirmed Vitamin D deficiency / SNOMED CT 08921440 / Confirmed Canceled: Anemia / SNOMED CT 053196899 Canceled: At low risk for fall / SNOMED CT 0509678935 Canceled: BMI 24.0-24.9, adult / SNOMED CT 9295119130 Canceled: CKD (chronic kidney disease) stage 3, GFR 30-59 ml/min / SNOMED CT 8485997425 Canceled: Cough / SNOMED CT 38667416 Canceled: Decreased GFR / SNOMED CT 0672076288 Canceled: Influenza vaccine refused / SNOMED CT 507927199 Canceled: Overweight / SNOMED CT 141581608 Canceled: BMI 25.0-25.9,adult / SNOMED CT 3467848268 Canceled: Depression screen / SNOMED CT 332537800 Canceled: Encounter for screening involving social determinants of health (SDoH) / SNOMED CT 645803767 Canceled: Encounter to establish care / SNOMED CT 150039934 Canceled: Encounter for removal of sutures / SNOMED CT 721492232, Active Problems (44) Actinic keratosis Acute cystitis without hematuria Afib Anaphylaxis due to insect venom Blood in urine - hematuria Cataract CKD (chronic kidney disease), stage III Coccyxdynia DDD (degenerative disc disease), lumbar Family hx of aortic aneurysm Former smoker GERD (gastroesophageal reflux disease) Jasen's thyroiditis Hernia, hiatal Hx of spinal surgery Hypercoagulable state due to atrial fibrillation Hyperparathyroidism Hypochromic anemia Hypothyroid Immunity status testing Immunization due Knee osteoarthritis Laceration of forehead Macular degeneration Medicare annual wellness visit, subsequent Need for hepatitis C screening test Nephrolithiasis Not currently working due to disabled status Osteoporosis Premature atrial complex Preop examination Right elbow pain Right hand pain Right shoulder pain S/P ablation of atrial fibrillation Screen for colon cancer Screening due Screening for AAA (abdominal aortic aneurysm) Screening for breast cancer Screening for cardiovascular condition Screening for cervical cancer Skin tear of upper extremity Viral URI with cough Vitamin D deficiency Histories Past Medical History: No active or resolved past medical history items have been selected or recorded. Family History: Cancer Father Thyroid Mother Hypertension Father Heart disease Grandparent Gallstone Mother Osteoporosis Mother Arthritis Mother Grandparent Blood disorder Grandparent Depression Mother Osteoarthritis Mother Father Skin cancer Mother Diabetes Grandparent Colon cancer Mother Hyperlipidaemia Father Prostate cancer Father Procedure history: Total knee replacement ([id number]) on 06/24/2021 at 65 Years. Comments: 12/19/2021 10:36 EDT - Christy Encarnacion LPN rt Total knee replacement ([id number]). Comments: 06/06/2021 10:18 Christy Moore LPN x3 2006 and 10/2019 Ablation ([id number]). Comments: 06/06/2021 10:19 Christy Moore LPN heart-x2 12/2005 and 04/2012 Knee ([id number]). Comments: 06/06/2021 10:18 Christy Moore LPN torn cartilage-1975 Ganglion cyst ([id number]). Comments: 06/06/2021 10:19 Christy Moore LPN rt wrist Femur ([id number]). Comments: 06/06/2021 10:19 EST - Christy Encarnacion LPN lt. shattered-01/2012 Discectomy of spine ([id number]). Social History: Social & Psychosocial Habits Alcohol 01/28/2024 Frequency: 1-2 times per week Substance Abuse 01/28/2024 Use: Never Tobacco 01/28/2024 Tobacco Use: Former smoker, quit more Comment: Quit at age 31 yrs - 12/23/2023 13:08 - Yeni Thomas LPN Home/Environment 01/28/2024 Other risks in environment: no current smoke exposure Nutrition/Health 01/28/2024 Caffeine intake amount: occasional Physical Examination Vital Signs 03/06/2024 11:13 EST Temperature Temporal Artery 36.6 DegC Peripheral Pulse Rate 68 bpm Respiratory Rate 10 br/min <LLOW Systolic Blood Pressure Non-Invasive 144 mmHg HI Diastolic Blood Pressure Non-Invasive 72 mmHg Vital Signs (last 24 hrs) Last Charted Temp Kntylhjr89.6 DegC (MAR 06:) SBPH 144 mmHg (MAR 06:) DBP72 mmHg (MAR 06:) Measurements from flowsheet : Measurements 03/06/2024 11:13 EST Height 168.5 cm Admission Weight 70 kg [place] Body Weight 60.08 kg Admission Body Mass Index 24.65 m2 03/06/2024 11:07 EST Height 168.5 cm [place] Body Weight 60.08 kg Pain assessment: Pain Assessment 03/06/2024 11:13 EST Primary Pain Location Knee Primary Pain Laterality Left Primary Pain Intensity 5 Pain Scale Type 0-10 Pain scale . General: Alert and oriented. Airway: Normal neck range of motion. Mallampati classification: II (soft palate, fauces, uvula visible). Head: Normocephalic. Dentition Evaluation: Intact, Own teeth. Neck: Full range of motion. Respiratory: Lungs are clear to auscultation. Cardiovascular: Normal rate. Heart Sounds: Normal. Gastrointestinal: Soft. Musculoskeletal Normal range of motion. Integumentary: Intact, Warm, Dry. Neurologic: Alert, Oriented. Review / Management Results review: No qualifying data available , Lab results 03/06/2024 11:48 EST [place] History and Physical 03/06/2024 11:40 EST SN - Proc - Anesthesia Type MAC SN - Proc - EBL 0 mL SN - Proc - Actual Procedure ESOPHAGOGASTRODUODENOSCOPY 03/06/2024 11:39 EST SN - PP - Body Position Lateral Right Side-up Standard Intra-op 03/06/2024 11:39 EST SN - GCD - Post-operative Diagnosis IRON DEFICIENCY ANEMIA SN - GCD - Case Level OPD Level 3 03/06/2024 11:39 EST SN - CAt - Case Attendee SN - CAt - Case Attendee SN - CAt - Case Attendee SN - CAt - Case Attendee SN - CAt - Case Attendee SN - CAt - Case Attendee SN - CAt - Case Attendee SN - CAt - Case Attendee SN - CAt - Role Performed Primary Surgeon SN - CAt - Role Performed GARAGE HELPER SN - CAt - Role Performed Second Language Tutor 1 SN - CAt - Role Performed Data Librarian 1 03/06/2024 11:28 EST Sodium Chloride 0.9% Begin Bag 500 mL mL 03/06/2024 11:27 EST Antecubital Left 22 gauge Peripheral IV Activity: Insert new site Peripheral IV Dressing Condition: Clean, Dry, Intact Peripheral IV Dressing Activity: Transparent dressing Peripheral IV Line Status/Patency: Continuous infusion Peripheral IV Site Condition: No complications Peripheral IV Number of Attempts: 2 03/06/2024 11:13 EST Height 168.5 cm Admission Weight 70 kg [place] Body Weight 60.08 kg Admission Body Mass Index 24.65 m2 Temperature Temporal Artery 36.6 DegC Peripheral Pulse Rate 68 bpm Respiratory Rate 10 br/min <LLOW Systolic Blood Pressure Non-Invasive 144 mmHg HI Diastolic Blood Pressure Non-Invasive 72 mmHg Primary Pain Location Knee Primary Pain Laterality Left Primary Pain Intensity 5 Pain Scale Type 0-10 Pain scale Respirations Unlabored All Lobes Breath Sounds Clear Oxygen Therapy Room air Oxygen Saturation 98 % Abdomen Description Non-distended, Soft Bowel Sounds All Quadrants Present Skin Temperature Warm Skin Description Ricardo Characteristics of Speech Clear Level of Consciousness Alert Strength All Extremities Strong Affect/Behavior Appropriate, Calm, Cooperative Orientation Oriented x 4 Standard Safety ID band on, Allergy Band on, Call device within reach, Bed in low position, Wheels locked 03/06/2024 11:07 EST Designated Person #1 We May Share MELECIO Morillo [phone] Designated Person #1 Relationship Son Privacy Restrictions Requested None Height 168.5 cm [place] Body Weight 60.08 kg Status No, per patient Sensory Deficits None Infectious Disease Symptoms Patient states no symptoms Infectious Disease Recent Exposure No Alcohol and Drug Use No Employee of Institutional Living No Health Care Employee No History of Exposure to TB No History of Positive Chest X-Ray for TB No History of Positive TB Skin Test No Homeless No Known Immunosuppression No Recent Immigrant No Resident of Institutional Living No Bloody Sputum No Fatigue No Fever No Loss of Appetite No Night Sweats No Persistent Cough > 3 Weeks No Weight Loss No Barriers to Learning None evident Teaching Method Printed materials Preferred Spoken Language Venezuelan Preferred Written Language Venezuelan Patient's Current Physicians Trayko Discharge To, Anticipated Home with family care Prev Test Positive/Diagnosis w/COVID-19 No Current Quarantine/Isolated any Illness No Any Contact with Sick Animals/Birds No Traveled Anywhere in Last 30 Days No No Personal Devices, Patient Valuables None Admission Note-Nursing Procedure/Therapy Intake 03/06/2024 11:02 EST IV Present Present Allergies Yes Consent Form Signed Yes Patient Dressed In Hospital gown History & Physical Update On Chart Yes History & Physical On Chart Yes Belongings At Bedside Glasses, Pants, Shirt, Shoes Personal Home Medications Received No home medications were brought in NPO Status Maintained Allergy Band on and Verified Yes Patient ID Band on and Verified Yes Implants Verified Yes Pacemaker/AICD Verified Yes Anesthesia Consent Signed Yes Last Fluid Intake 03/05/2024 18:15 Last Food Intake 03/05/2024 18:15 . Assessment and Plan [place] [employer]hesi[employer] (ASA) physical status classification: Class II. Anesthetic Preoperative Plan Premedication: intravenous. Anesthetic technique: MAC. Induction: intravenously. Maintenance airway: Mask. Risks discussed: nausea, vomiting, headache, sore throat, dental injury, hypotension, allergic reaction, serious complications. Informed consent: signed by patient. Digitally Signed by FLAKITO AWAD on 03/06/2024 11:53 AM [facility] No data available for this section [facility] Future Appointments Appointment Date:12/04/2021 10:00:00 AM Scheduled Provider:SRIDHAR MONTERO DO Location:[facility] Appointment Type:PC Wellness Medicare [facility] Evaluation + Plan note Future Appointments Appointment Date:07/15/2021 11:00:00 AM Scheduled Provider: Location:[facility] Appointment Type:PT Treatment - [place] Appointment Date:07/18/2021 11:00:00 AM Scheduled Provider: Location:[facility] Appointment Type:PT Treatment - [place] Appointment Date:07/22/2021 11:00:00 AM Scheduled Provider: Location:[facility] Appointment Type:PT Treatment - [place] Appointment Date:07/25/2021 11:00:00 AM Scheduled Provider: Location:[facility] Appointment Type:PT Treatment - [place] Appointment Date:12/04/2021 10:00:00 AM Scheduled Provider:SR[facility]TERO DO [facility] Type:[facility] Wellness Medicare [facility] [place] Evaluation + Plan note Future Appointments Appointment Date:12/19/2021 10:30:00 AM Scheduled Provider:SRIDHAR MONTERO DO Location:[facility] Appointment Type:PC Wellness Medicare [facility] Evaluation + Plan note Future Appointments Appointment Date:12/30/2021 09:30:00 AM Scheduled Provider: Location:[facility] Appointment Type:US Abdomen/Aorta Appointment Date:01/22/2022 09:00:00 AM Scheduled Provider:SRIDHAR MONTERO DO Location:[facility] Appointment Type: Office Procedure Foreign Body Removal Appointment Date:06/19/2022 11:00:00 AM Scheduled Provider:SRIDHAR MONTERO DO Location:[facility] Appointment Type:PC OV Future Scheduled Tests Laboratory* Rubella Antibody 12/19/21 * Lipid Profile 12/19/21 * Hepatitis C Antibody IgG 12/19/21 * Mumps Antibody 12/19/21 * Rubeola IgG Antibody 12/19/21 * Complete Metabolic Panel 12/19/21 [facility] Future Appointments Appointment Date:06/19/2022 11:00:00 AM Scheduled Provider:SRIDHAR MONTERO DO Location:[facility] Appointment Type:PC OV Future Scheduled Tests Laboratory* Rubella Antibody 12/19/21 * Lipid Profile 12/19/21 * Hepatitis C Antibody IgG 12/19/21 * Mumps Antibody 12/19/21 * Rubeola IgG Antibody 12/19/21 * Complete Metabolic Panel 12/19/21 [facility] Future Appointments Appointment Date:07/12/2023 01:00:00 PM Scheduled Provider:SRIDHAR MONTERO DO Location:[facility] Appointment Type:PC OV Future Scheduled Tests Laboratory* Rubella Antibody 01/11/23 * Lipid Profile 01/11/23 * Hepatitis C Antibody IgG 01/11/23 * Mumps Antibody 01/11/23 * Rubeola IgG Antibody 01/11/23 * Complete Metabolic Panel 01/11/23 [facility] Future Appointments Appointment Date:01/14/2024 09:30:00 AM Scheduled Provider:SRIDHAR MONTERO DO Location:[facility] Appointment Type:PC Wellness Medicare Future Scheduled Tests Laboratory* Rubella Antibody 01/11/23 * Lipid Profile 01/11/23 * Hepatitis C Antibody IgG 01/11/23 * Mumps Antibody 01/11/23 * Rubeola IgG Antibody 01/11/23 * Complete Metabolic Panel 01/11/23 [facility] Future Appointments Appointment Date:03/08/2024 08:30:00 AM Scheduled Provider:SRIDHAR MONTERO DO Location:[facility] Appointment Type:PC OV Appointment Date:07/13/2024 08:30:00 AM Scheduled Provider:SRIDHAR MONTERO DO Location:[facility] Appointment Type:PC OV Future Scheduled Tests Laboratory* Urinalysis w/ C&S if Indicated 12/27/23 * Urinalysis w/ C&S if Indicated 01/26/24 * Thyroid Stimulating Hormone 01/20/24 * Free T4 01/20/24 * A1C Hemoglobin 01/20/24 * Complete Blood Count 01/20/24 * Lipid Profile 01/20/24 * Vitamin D Level 01/20/24 * Complete Metabolic Panel 01/20/24 [facility] Future Appointments Appointment Date:05/10/2024 09:00:00 AM Scheduled Provider:SRIDHAR MONTERO DO Location:[facility] Appointment Type:PC OV Appointment Date:07/13/2024 08:30:00 AM Scheduled Provider:SRIDHAR MONTERO DO Location:[facility] Appointment Type:PC OV Future Scheduled Tests Laboratory* Thyroid Stimulating Hormone 03/08/24 * Free T4 03/08/24 * Vitamin D Level 03/08/24 [facility] Future Appointments Appointment Date:06/21/2024 09:00:00 AM Scheduled Provider:SRIDHAR MONTERO DO Location:[facility] Appointment Type:PC OV Appointment Date:07/13/2024 08:30:00 AM Scheduled Provider:SRIDHAR MONTERO DO Location:[facility] Appointment Type:PC OV Future Scheduled Tests Laboratory* Thyroid Stimulating Hormone 03/08/24 * Free T4 03/08/24 * Vitamin D Level 03/08/24 [facility] Future Appointments Appointment Date:12/21/2024 08:30:00 AM Scheduled Provider:SRIDHAR MONTERO DO Location:[facility] Appointment Type:PC OV Follow Up Appointment Date:03/15/2025 08:30:00 AM Scheduled Provider:SRIDHAR MONETRO DO [facility] Type: Wellness Medicare Future Scheduled Tests Laboratory* Ferritin 09/21/24 * Hepatic Function Panel 09/21/24 * Magnesium Level 09/21/24 * Thyroid Stimulating Hormone 09/21/24 * Thyroid Stimulating Hormone 03/08/24 * Free T4 09/21/24 * Free T4 03/08/24 * A1C Hemoglobin 09/21/24 * Complete Blood Count 09/21/24 * Lipid Profile 09/21/24 * PTH, Intact 09/21/24 * Renal Function Panel 09/21/24 * Vitamin D Level 09/21/24 * Vitamin D Level 03/08/24 [facility] Future Appointments Appointment Date:03/15/2025 08:30:00 AM Scheduled Provider:SRIDHAR MONTERO DO Location:[facility] Appointment Type:PC Wellness Medicare Future Scheduled Tests Laboratory* Thyroid Stimulating Hormone 03/08/24 * Free T4 03/08/24 * Vitamin D Level 03/08/24 [facility]* Diagnosis Paroxysmal atrial fibrillation (HCC)- Primary Atrial [facility] Diagnosis 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 [facility] [facility] Diagnosis Women's annual routine gynecological examination- Primary Screening for malignant neoplasm of cervix Screening for malignant neoplasm of the cervix Breast cancer screening by mammogram Postmenopausal osteoporosis Senile osteoporosis At high risk for fracture Atrophic vaginitis Postmenopausal atrophic vaginitis [facility] Diagnosis Breast cancer screening by mammogram [facility] Diagnosis Paroxysmal atrial fibrillation (HCC) Atrial fibrillation [facility] Diagnosis Paroxysmal atrial fibrillation (HCC)- Primary Atrial fibrillation PAC (premature atrial contraction) Supraventricular premature beats documented in this encounter [facility] noteNo assessment information [facility] Phone: evaluation note* Diagnosis Left knee pain, unspecified chronicity- Primary [facility] Diagnosis Status post revision of total replacement of left knee- Primary [facility] Diagnosis Women's annual routine gynecological examination- Primary Screening for malignant neoplasm of cervix Screening for malignant neoplasm of the cervix Breast cancer screening by mammogram Encounter for colorectal cancer screening Special screening for malignant neoplasms, colon Screening for osteoporosis Special screening for osteoporosis Menopause Symptomatic menopausal or female climacteric states Osteopenia, unspecified location At high risk for fracture Uterine leiomyoma, unspecified location [facility] Diagnosis Paroxysmal atrial fibrillation (HCC) Atrial fibrillation [facility] Diagnosis History of atrial fibrillation- Primary Personal history of other diseases of circulatory system PAC (premature atrial contraction) Supraventricular premature beats Palpitations intermediate current use of antiarrhythmic drug At risk for stroke Other specified personal history presenting hazards to health Hyperkalemia Hyperpotassemia [facility] Diagnosis Breast cancer screening by mammogram [facility] Diagnosis History of atrial fibrillation Personal history of other diseases of circulatory system PAC (premature atrial contraction) Supraventricular premature beats 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 [facility] Diagnosis History of atrial fibrillation Personal history of other diseases of circulatory system PAC (premature atrial contraction) Supraventricular premature beats Palpitations intermediate current use of antiarrhythmic drug [facility] Diagnosis Paroxysmal atrial fibrillation (HCC)- Primary Atrial fibrillation intermediate current use of antiarrhythmic drug PAC (premature atrial contraction) Supraventricular premature beats [facility] Diagnosis Dysuria- Primary Urinary frequency Urinary urgency Urgency of urination [facility] Diagnosis Left knee pain, unspecified chronicity [facility] Diagnosis Anemia, unspecified type- Primary [facility] Diagnosis Iron 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 dietary iron intake- Primary [facility] Diagnosis Iron 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 dietary iron intake- Primary [facility] Diagnosis Iron 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 dietary iron intake- Primary [facility] Diagnosis History of atrial fibrillation Personal history of other diseases of circulatory system PAC (premature atrial contraction) Supraventricular premature beats Palpitations intermediate current use of antiarrhythmic drug [facility] Diagnosis Iron 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 dietary iron intake- Primary [facility] Diagnosis Iron 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 dietary iron intake- Primary [facility] Diagnosis Iron 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 dietary iron intake- Primary [facility] Diagnosis Paroxysmal atrial fibrillation (HCC) Atrial fibrillation [facility] Diagnosis Iron deficiency anemia, unspecified iron deficiency anemia type- Primary Iron 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 dietary iron intake Anemia, unspecified type [facility] Diagnosis Paroxysmal atrial fibrillation (HCC)- Primary Atrial fibrillation At risk for stroke Other specified personal history presenting hazards to health Anemia, unspecified type documented in this encounter [facility] note* Diagnosis Personal history of colon cancer- Primary Personal history of malignant neoplasm of large intestine documented in this encounter [facility] note* Diagnosis Encounter for screening for malignant neoplasm of colon- Primary Special screening for malignant neoplasms, colon Personal history of colon cancer Personal history of malignant neoplasm of large intestine documented in this encounter [facility] note* Diagnosis Paroxysmal atrial fibrillation (HCC)- Primary Atrial fibrillation documented in this encounter [facility] note* Diagnosis Paroxysmal atrial fibrillation (HCC)- Primary Atrial fibrillation At risk for altered cerebral tissue perfusion due to history of stroke At risk for stroke Other specified personal history presenting hazards to health documented in this encounter [facility] note* Diagnosis Atrial fibrillation (HCC)- Primary Atrial fibrillation Hypothyroidism Unspecified hypothyroidism Unresponsive episode Other alteration of consciousness Acute encephalopathy Encephalopathy, unspecified Leukocytosis Leukocytosis, unspecified Complication of anesthesia Unspecified adverse effect of anesthesia Encephalopathy Encephalopathy, unspecified Status post ablation of atrial flutter Other postprocedural status Typical atrial flutter (HCC) Atrial flutter Paroxysmal atrial fibrillation (HCC)- Primary Atrial fibrillation PAC (premature atrial contraction) Supraventricular premature beats long term care phlebotomist current use of anticoagulant Long-term (current) use of anticoagulants documented in this encounter [facility] note* Diagnosis Atrial fibrillation (HCC)- Primary Atrial fibrillation Hypothyroidism Unspecified hypothyroidism Unresponsive episode Other alteration of consciousness Acute encephalopathy Encephalopathy, unspecified Leukocytosis Leukocytosis, unspecified Complication of anesthesia Unspecified adverse effect of anesthesia Encephalopathy Encephalopathy, unspecified Status post ablation of atrial flutter Other postprocedural status Typical atrial flutter (HCC) Atrial flutter Persistent atrial fibrillation (HCC)- Primary Atrial fibrillation Dyspnea, unspecified type documented in this encounter [facility] note* Diagnosis Atrial fibrillation (HCC)- Primary Atrial fibrillation Hypothyroidism Unspecified hypothyroidism Unresponsive episode Other alteration of consciousness Acute encephalopathy Encephalopathy, unspecified Leukocytosis Leukocytosis, unspecified Complication of anesthesia Unspecified adverse effect of anesthesia Encephalopathy Encephalopathy, unspecified Status post ablation of atrial flutter Other postprocedural status Typical atrial flutter (HCC) Atrial flutter Left knee pain, unspecified chronicity- Primary documented in this encounter [facility] note* Diagnosis Atrial fibrillation (HCC)- Primary Atrial fibrillation Hypothyroidism Unspecified hypothyroidism Unresponsive episode Other alteration of consciousness Acute encephalopathy Encephalopathy, unspecified Leukocytosis Leukocytosis, unspecified Complication of anesthesia Unspecified adverse effect of anesthesia Encephalopathy Encephalopathy, unspecified Status post ablation of atrial flutter Other postprocedural status Typical atrial flutter (HCC) Atrial flutter Arthralgia of left lower leg- Primary Pain in joint, lower leg documented in this encounter [facility] note* Diagnosis Atrial fibrillation (HCC)- Primary Atrial fibrillation Hypothyroidism Unspecified hypothyroidism Unresponsive episode Other alteration of consciousness Acute encephalopathy Encephalopathy, unspecified Leukocytosis Leukocytosis, unspecified Complication of anesthesia Unspecified adverse effect of anesthesia Encephalopathy Encephalopathy, unspecified Status post ablation of atrial flutter Other postprocedural status Typical atrial flutter (HCC) Atrial flutter Left knee pain, unspecified chronicity documented in this encounter [facility] note* Diagnosis Atrial fibrillation (HCC)- Primary Atrial fibrillation Hypothyroidism Unspecified hypothyroidism Unresponsive episode Other alteration of consciousness Acute encephalopathy Encephalopathy, unspecified Leukocytosis Leukocytosis, unspecified Complication of anesthesia Unspecified adverse effect of anesthesia Encephalopathy Encephalopathy, unspecified Status post ablation of atrial flutter Other postprocedural status Typical atrial flutter (HCC) Atrial flutter Arthralgia of left lower leg- Primary Pain in joint, lower leg documented in this encounter [facility] note* Diagnosis Atrial fibrillation (HCC)- Primary Atrial fibrillation Hypothyroidism Unspecified hypothyroidism Unresponsive episode Other alteration of consciousness Acute encephalopathy Encephalopathy, unspecified Leukocytosis Leukocytosis, unspecified Complication of anesthesia Unspecified adverse effect of anesthesia Encephalopathy Encephalopathy, unspecified Status post ablation of atrial flutter Other postprocedural status Typical atrial flutter (HCC) Atrial flutter Arthralgia of left lower leg- Primary Pain in joint, lower leg documented in this encounter [facility] note* Diagnosis Atrial fibrillation (HCC)- Primary Atrial fibrillation Hypothyroidism Unspecified hypothyroidism Unresponsive episode Other alteration of consciousness Acute encephalopathy Encephalopathy, unspecified Leukocytosis Leukocytosis, unspecified Complication of anesthesia Unspecified adverse effect of anesthesia Encephalopathy Encephalopathy, unspecified Status post ablation of atrial flutter Other postprocedural status Typical atrial flutter (HCC) Atrial flutter Arthralgia of left lower leg Pain in joint, lower leg documented in this encounter [facility] note* Diagnosis Atrial fibrillation (HCC)- Primary Atrial fibrillation Hypothyroidism Unspecified hypothyroidism Unresponsive episode Other alteration of consciousness Acute encephalopathy Encephalopathy, unspecified Leukocytosis Leukocytosis, unspecified Complication of anesthesia Unspecified adverse effect of anesthesia Encephalopathy Encephalopathy, unspecified Status post ablation of atrial flutter Other postprocedural status Typical atrial flutter (HCC) Atrial flutter Failure of total knee replacement, subsequent encounter- Primary documented in this encounter [facility] Discharge instructions No data available for this [facility] No data available for [facility] Reason for referral (narrative)* Diagnostic Procedure Only (Routine) - Pending Review Specialty Diagnoses / Procedures Referred By Marvin pena Referred To Contact [facility] Diagnoses Breast cancer screening by mammogram Procedures NILO SCREENING SCREENING MAMMOGRAPHY BI 2-VIEW BREAST INC Gaye Ross PA-C [address] [address] [facility] [address] [place] [address] Referral ID Status Reason Start Date Expiration Date Visits Requested Visits Authorized [id number] Pending Review Auto-Generat ed Referral 10/08/2021 11/07/2022 1 1 [facility] for referral (narrative)* Diagnostic Procedure Only (Routine) - Closed Specialty Diagnoses / Procedures Referred By Marvin pena Referred To Contact [facility] Diagnoses Breast cancer screening by mammogram Procedures NILO SCREENING SCREENING MAMMOGRAPHY BI 2-VIEW BREAST INC Gaye Ross PA-C [address] [address] [facility] [address] [place] [address] Referral ID Status Reason Start Date Expiration Date V isits Requested Visits Authorized [id number] Closed Auto-Generate d Referral 10/08/2021 11/07/2022 1 1 [facility] for referral (narrative)* Diagnostic Procedure Only (Routine) - Authorized Specialty Diagnoses / Procedures [facility] Diagnoses Left knee pain, unspecified chronicity Procedures XR KNEE POST OP 3V AP/LAT/MERCHANT LEFT RADIOLOGIC EXAMINATION KNEE 3 VIEWS Jose Gutierrez APRN.POOJA [address] [address] [facility] Referral ID Status Reason Start Date Expiration Date Visits Requested Visits Authorized [id number] Authorized Auto-Generat ed Referral 06/18/2022 07/17/2023 1 1 [facility] for referral (narrative)* Diagnostic Procedure Only (Routine) - Pending Review Specialty Diagnoses / Procedures [facility] To [facility] Diagnoses Breast cancer screening by mammogram Procedures NILO SCREENING SCREENING MAMMOGRAPHY BI 2-VIEW BREAST INC Gaye Ross PA-C [address] [address] [facility] [address] [place] [address] Referral ID Status Reason Start Date Expiration Date Visits Requested Visits Authorized [id number] Pending Review Auto-Generat ed Referral 10/12/2022 11/11/2023 1 1 [facility] for referral (narrative)* Outpatient Procedure (Routine) - Pending Review Specialty Diagnoses / Procedures [facility] Diagnoses History of atrial fibrillation PAC (premature atrial contraction) Palpitations intermediate current use of antiarrhythmic drug Procedures ECHO ECHO TTHRC R-T 2D W/WOM-MODE COMPL SPEC&COLR D Lilia Martinez APRN.WAITER/WAITRESS TOURIST CLASS [address] [place] [address] [facility] [address] [place] [address] Referral ID Status Reason Start Date Expiration Date Visits Requested Visits Authorized [id number] Pending Review Auto-Generat ed Referral 05/28/2023 05/27/2024 1 1 [facility] for referral (narrative)* Outpatient Procedure (Routine) - Closed Specialty Diagnoses / Procedures Referred By Marvin pena Referred To Contact [facility] [place] Diagnoses History of atrial fibrillation PAC (premature atrial contraction) 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 [address] [address] Referral ID Status Reason Start Date Expiration Date V isits Requested Visits Authorized [id number] Closed Auto-Generate d Referral 05/28/2023 05/27/2024 1 1 [facility] for referral (narrative)* Diagnostic Procedure Only (Routine) - Closed Specialty Diagnoses / Procedures Referred By Marvin pena Referred To Contact [facility] Diagnoses Left knee pain, unspecified chronicity Procedures XR KNEE POST OP 3V AP/LAT/MERCHANT LEFT RADIOLOGIC EXAMINATION KNEE 3 VIEWS Jose Gutierrez APRN.CNP [address] [address] [place] [address] Referral ID Status Reason Start Date Expiration Date V isits Requested Visits Authorized [id number] Closed Auto-Generate d Referral 06/18/2022 07/17/2023 1 1 [facility] for visit Narrative* Outpatient Procedure (Routine) - Closed Specialty Diagnoses / Procedures Referred By Marvin t Referred To Contact [facility] [place] Diagnoses History of atrial fibrillation PAC (premature atrial contraction) Palpitations intermediate current use of antiarrhythmic drug Procedures ECHO ECHO TTHRC R-T 2D W/WOM-MODE COMPL SPEC&COLR Lilia Ledezma APRN.WAITER/WAITRESS TOURIST CLASS [address] [place] [address] [facility] [address] [place] [address] Referral ID Status Reason Start Date Expiration Date V isits Requested Visits Authorized [id number] Closed Auto-Generate d Referral 05/28/2023 05/27/2024 1 1 [facility] for visit Narrative* Diagnostic Procedure Only (Routine) - Closed Specialty Diagnoses / Procedures Referred By Contac t Referred To Contact [facility] Diagnoses Left knee pain, unspecified chronicity Procedures XR KNEE POST OP 3V AP/LAT/MERCHANT LEFT RADIOLOGIC EXAMINATION KNEE 3 VIEWS Jose Gutierrez, SENIOR RADIATION PROTECTION TECHNICIAN.WAITER/WAITRESS TOURIST CLASS [address] [address] [place] [address] Referral ID Status Reason Start Date Expiration Date V isits Requested Visits Authorized [id number] Closed Auto-Generate d Referral 06/18/2022 07/17/2023 1 1 [facility] for visit Narrative* Outpatient Procedure (Routine) - Closed Specialty Diagnoses / Procedures Referred By Contac t Referred To Contact [facility] Diagnoses Personal history of colon cancer Procedures COLONOSCOPY SCREENING COLONOSCOPY FLX DX W/COLLJ SPEC WHEN PFRMD Elizabeth Roger MD [address] [place] [address] Phone: tel: fax: [facility] [address] [place] [address] Referral ID Status Reason Start Date Expiration Date V isits Requested Visits Authorized [id number] Closed Auto-Generate d Referral 07/21/2024 07/21/2025 1 1 [facility] for visit Narrative* Diagnostic Procedure Only (Routine) - Closed Specialty Diagnoses / Procedures Referred By Contac t Referred To Contact [facility] Diagnoses Left knee pain, unspecified chronicity Procedures XR KNEE POST OP 3V AP/LAT/MERCHANT LEFT RADIOLOGIC EXAMINATION KNEE 3 VIEWS Jose Gutierrez, SENIOR RADIATION PROTECTION TECHNICIAN.WAITER/WAITRESS TOURIST CLASS [address] [place] [address] Phone: tel: fax: [place] [address] Referral ID Status Reason Start Date Expiration Date V isits Requested Visits Authorized [id number] Closed Auto-Generate d Referral 10/31/2024 11/30/2025 1 1 [facility] Family History No Family History Records Found Sibling Name Dates Details Family history of gallbladde r disease(V18.59, Z83.79) Status:Active Family history of Joint pain (719.40, M25.50) Status:Active Mother Name Dates Details Family history of cardiac di sorder(V17.49, Z82.49) Status:Active Family history of thyroid di sease(V18.19, Z83.49) Status:Active Family history of cardiac pa cemaker(V17.49, Z82.49) Status:Active Family history of depression (V17.0, Z81.8) Status:Active Family history of Alzheimer' s dementia(331.0, G30.9) Status:Active Father Name Dates Details Family history of Status:Active Family history of Prostate c ancer(185, C61) Status:Active Family history of coronary a rtery disease(V17.3, Z82.49) Status:Active Family history of hypertensi on(V17.49, Z82.49) Status:Active Family history of cardiac di sorder(V17.49, Z82.49) Status:Active Unknown Family Member Name Dates Details : Father Status:Active Prostate cancer: Father Status:Active Family history of coronary a rtery disease: Father(V17.3, Z82.49) Status:Active Family history of hypertensi on: Father(V17.49, Z82.49) Status:Active Family history of cardiac di sorder: Father, Mother(V17.49, Z82.49) Status:Active Family history of thyroid di sease: Mother(V18.19, Z83.49) Status:Active : Father Comments:Father Age 61; Status:Active Family history of cardiac pa cemaker: Mother(V17.49, Z82.49) Status:Active Family history of depression : Mother(V17.0, Z81.8) Status:Active Family history of gallbladde r disease: Sibling(V18.59, Z83.79) Status:Active Joint pain: Sibling Status:Active Alzheimer's dementia: Mother Status:Active Summary Purpose Advance Directives No Advanced Directives Records FoundDocuments on File Type Date Recorded Patient Broiler Chef Or Cook Expl anation Advance Directive(s) 07/09/2008 6:25 AM Date Activated Date Inactivated Comments 09/22/2024 5:43 PM Question Answer Comments Full Code Order Discussed With: Patient Documents on File Type Date Recorded Patient Broiler Chef Or Cook Expl anation Advance Directive(s) 07/09/2008 6:25 AM Advance Directive Response Recorded Date/ Time Living Will No June 25, 2021 11:34am Power of Certified Hyperbaric Technologist No June 25 11:34am Date Activated Date Inactivated Comments 09/22/2024 5:43 PM 09/23/2024 2:44 PM Date Activated Date Inactivated Comments 09/22/2024 5:43 PM 09/23/2024 2:44 PM Question Answer Comments Full Code Order Discussed With: Patient Chief Complaint Patient presents with left knee pain./JL Reason for Referral Specialty Diagnoses / Procedures Referred By Marvin t Referred To Contact Diagnoses Status post revision of total replacement of left knee Procedures REFER TO PACC - PRE ANESTHESIA CONSULTATION CLINIC OFFICE/OUTPATIENT [facility] 60-74 MINUTES Jaciel Hurd MD [address] [address] Referral ID Status Reason Start Date Expiration Date Visits Requested Visits Authorized [id number] Pending Review PCP Requested Referral 07/18/2022 07/18/2023 1 1 Additional Source Comments INFORMATION SOURCE (unrecogn ized section and content) DATE CREATED AUTHOR [facility]/20/[facility] DATE CREATED AUTHOR AUTHOR'S ORGANIZ ATION 04/25/2020 [facility] DATE CREATED AUTHOR AUTHOR'S ORGANIZ ATION 05/08/2020 [facility] DATE CREATED AUTHOR AUTHOR'S ORGANIZ ATION 11/09/2020 [facility] DATE CREATED AUTHOR AUTHOR'S ORGANIZ ATION 11/09/2020 [employer] DATE CREATED AUTHOR AUTHOR'S ORGANIZ ATION 12/06/2023 [facility] ([place]) DATE CREATED AUTHOR AUTHOR'S ORGANIZ ATION 03/18/2024 [facility] DATE CREATED AUTHOR AUTHOR'S ORGANIZ ATION 12/17/2024 [facility] DATE CREATED AUTHOR AUTHOR'S ORGANIZ ATION 02/01/2025 [facility] DATE CREATED AUTHOR AUTHOR'S ORGANIZ ATION 02/07/2025 [facility] DATE CREATED AUTHOR AUTHOR'S ORGANIZ ATION 02/08/2025 [facility] Source Comments (unrecognize d section and content) In the event this informatio n is protected by the Federal Confidentiality of Alcohol and Drug Abuse Patient Records regulations: The Federal rules restrict any use of the information to criminally investigate or prosecute any alcohol or drug abuse patient.[facility] the event this information is protected by the Federal Confidentiality of Alcohol and Drug Abuse Patient Records regulations: The Federal rules restrict any use of the information to criminally investigate or prosecute any alcohol or drug abuse patient.[facility] the event this information is protected by the Federal Confidentiality of Alcohol and Drug Abuse Patient Records regulations: The Federal rules restrict any use of the information to criminally investigate or prosecute any alcohol or drug abuse patient.[facility] HospitalIn the event this information is protected by the Federal Confidentiality of Alcohol and Drug Abuse Patient Records regulations: The Federal rules restrict any use of the information to criminally investigate or prosecute any alcohol or drug abuse patient.[facility] HospitalIn the event this information is protected by the Federal Confidentiality of Alcohol and Drug Abuse Patient Records regulations: The Federal rules restrict any use of the information to criminally investigate or prosecute any alcohol or drug abuse patient.[facility] HospitalIn the event this information is protected by the Federal Confidentiality of Alcohol and Drug Abuse Patient Records regulations: The Federal rules restrict any use of the information to criminally investigate or prosecute any alcohol or drug abuse patient.[facility] HospitalIn the event this information is protected by the Federal Confidentiality of Alcohol and Drug Abuse Patient Records regulations: The Federal rules restrict any use of the information to criminally investigate or prosecute any alcohol or drug abuse patient.[facility] HospitalIn the event this information is protected by the Federal Confidentiality of Alcohol and Drug Abuse Patient Records regulations: The Federal rules restrict any use of the information to criminally investigate or prosecute any alcohol or drug abuse patient.[facility] HospitalIn the event this information is protected by the Federal Confidentiality of Alcohol and Drug Abuse Patient Records regulations: The Federal rules restrict any use of the information to criminally investigate or prosecute any alcohol or drug abuse patient.[facility] HospitalIn the event this information is protected by the Federal Confidentiality of Alcohol and Drug Abuse Patient Records regulations: The Federal rules restrict any use of the information to criminally investigate or prosecute any alcohol or drug abuse patient.[facility] HospitalIn the event this information is protected by the Federal Confidentiality of Alcohol and Drug Abuse Patient Records regulations: The Federal rules restrict any use of the information to criminally investigate or prosecute any alcohol or drug abuse patient.[facility] HospitalIn the event this information is protected by the Federal Confidentiality of Alcohol and Drug Abuse Patient Records regulations: The Federal rules restrict any use of the information to criminally investigate or prosecute any alcohol or drug abuse patient.[facility] HospitalIn the event this information is protected by the Federal Confidentiality of Alcohol and Drug Abuse Patient Records regulations: The Federal rules restrict any use of the information to criminally investigate or prosecute any alcohol or drug abuse patient.[facility] HospitalIn the event this information is protected by the Federal Confidentiality of Alcohol and Drug Abuse Patient Records regulations: The Federal rules restrict any use of the information to criminally investigate or prosecute any alcohol or drug abuse patient.[facility] HospitalIn the event this information is protected by the Federal Confidentiality of Alcohol and Drug Abuse Patient Records regulations: The Federal rules restrict any use of the information to criminally investigate or prosecute any alcohol or drug abuse patient.[facility] HospitalIn the event this information is protected by the Federal Confidentiality of Alcohol and Drug Abuse Patient Records regulations: The Federal rules restrict any use of the information to criminally investigate or prosecute any alcohol or drug abuse patient.[facility] HospitalIn the event this information is protected by the Federal Confidentiality of Alcohol and Drug Abuse Patient Records regulations: The Federal rules restrict any use of the information to criminally investigate or prosecute any alcohol or drug abuse patient.[facility] HospitalIn the event this information is protected by the Federal Confidentiality of Alcohol and Drug Abuse Patient Records regulations: The Federal rules restrict any use of the information to criminally investigate or prosecute any alcohol or drug abuse patient.[facility] HospitalIn the event this information is protected by the Federal Confidentiality of Alcohol and Drug Abuse Patient Records regulations: The Federal rules restrict any use of the information to criminally investigate or prosecute any alcohol or drug abuse patient.[facility] HospitalIn the event this information is protected by the Federal Confidentiality of Alcohol and Drug Abuse Patient Records regulations: The Federal rules restrict any use of the information to criminally investigate or prosecute any alcohol or drug abuse patient.[facility] HospitalIn the event this information is protected by the Federal Confidentiality of Alcohol and Drug Abuse Patient Records regulations: The Federal rules restrict any use of the information to criminally investigate or prosecute any alcohol or drug abuse patient.[facility] HospitalIn the event this information is protected by the Federal Confidentiality of Alcohol and Drug Abuse Patient Records regulations: The Federal rules restrict any use of the information to criminally investigate or prosecute any alcohol or drug abuse patient.[facility] HospitalIn the event this information is protected by the Federal Confidentiality of Alcohol and Drug Abuse Patient Records regulations: The Federal rules restrict any use of the information to criminally investigate or prosecute any alcohol or drug abuse patient.[facility] HospitalIn the event this information is protected by the Federal Confidentiality of Alcohol and Drug Abuse Patient Records regulations: The Federal rules restrict any use of the information to criminally investigate or prosecute any alcohol or drug abuse patient.[facility] HospitalIn the event this information is protected by the Federal Confidentiality of Alcohol and Drug Abuse Patient Records regulations: The Federal rules restrict any use of the information to criminally investigate or prosecute any alcohol or drug abuse patient.[facility] HospitalIn the event this information is protected by the Federal Confidentiality of Alcohol and Drug Abuse Patient Records regulations: The Federal rules restrict any use of the information to criminally investigate or prosecute any alcohol or drug abuse patient.[facility] HospitalIn the event this information is protected by the Federal Confidentiality of Alcohol and Drug Abuse Patient Records regulations: The Federal rules restrict any use of the information to criminally investigate or prosecute any alcohol or drug abuse patient.[facility] HospitalIn the event this information is protected by the Federal Confidentiality of Alcohol and Drug Abuse Patient Records regulations: The Federal rules restrict any use of the information to criminally investigate or prosecute any alcohol or drug abuse patient.[facility] HospitalIn the event this information is protected by the Federal Confidentiality of Alcohol and Drug Abuse Patient Records regulations: The Federal rules restrict any use of the information to criminally investigate or prosecute any alcohol or drug abuse patient.[facility] HospitalIn the event this information is protected by the Federal Confidentiality of Alcohol and Drug Abuse Patient Records regulations: The Federal rules restrict any use of the information to criminally investigate or prosecute any alcohol or drug abuse patient.[facility] HospitalIn the event this information is protected by the Federal Confidentiality of Alcohol and Drug Abuse Patient Records regulations: The Federal rules restrict any use of the information to criminally investigate or prosecute any alcohol or drug abuse patient.[facility] HospitalIn the event this information is protected by the Federal Confidentiality of Alcohol and Drug Abuse Patient Records regulations: The Federal rules restrict any use of the information to criminally investigate or prosecute any alcohol or drug abuse patient.[facility] HospitalIn the event this information is protected by the Federal Confidentiality of Alcohol and Drug Abuse Patient Records regulations: The Federal rules restrict any use of the information to criminally investigate or prosecute any alcohol or drug abuse patient.[facility] HospitalIn the event this information is protected by the Federal Confidentiality of Alcohol and Drug Abuse Patient Records regulations: The Federal rules restrict any use of the information to criminally investigate or prosecute any alcohol or drug abuse patient.[facility] HospitalIn the event this information is protected by the Federal Confidentiality of Alcohol and Drug Abuse Patient Records regulations: The Federal rules restrict any use of the information to criminally investigate or prosecute any alcohol or drug abuse patient.[facility] HospitalIn the event this information is protected by the Federal Confidentiality of Alcohol and Drug Abuse Patient Records regulations: The Federal rules restrict any use of the information to criminally investigate or prosecute any alcohol or drug abuse patient.[facility] HospitalIn the event this information is protected by the Federal Confidentiality of Alcohol and Drug Abuse Patient Records regulations: The Federal rules restrict any use of the information to criminally investigate or prosecute any alcohol or drug abuse patient.[facility] HospitalIn the event this information is protected by the Federal Confidentiality of Alcohol and Drug Abuse Patient Records regulations: The Federal rules restrict any use of the information to criminally investigate or prosecute any alcohol or drug abuse patient.[facility] HospitalIn the event this information is protected by the Federal Confidentiality of Alcohol and Drug Abuse Patient Records regulations: The Federal rules restrict any use of the information to criminally investigate or prosecute any alcohol or drug abuse patient.[facility] HospitalIn the event this information is protected by the Federal Confidentiality of Alcohol and Drug Abuse Patient Records regulations: The Federal rules restrict any use of the information to criminally investigate or prosecute any alcohol or drug abuse patient.[facility] HospitalIn the event this information is protected by the Federal Confidentiality of Alcohol and Drug Abuse Patient Records regulations: The Federal rules restrict any use of the information to criminally investigate or prosecute any alcohol or drug abuse patient.[facility] HospitalIn the event this information is protected by the Federal Confidentiality of Alcohol and Drug Abuse Patient Records regulations: The Federal rules restrict any use of the information to criminally investigate or prosecute any alcohol or drug abuse patient.[facility] HospitalIn the event this information is protected by the Federal Confidentiality of Alcohol and Drug Abuse Patient Records regulations: The Federal rules restrict any use of the information to criminally investigate or prosecute any alcohol or drug abuse patient.[facility] HospitalIn the event this information is protected by the Federal Confidentiality of Alcohol and Drug Abuse Patient Records regulations: The Federal rules restrict any use of the information to criminally investigate or prosecute any alcohol or drug abuse patient.[facility] HospitalIn the event this information is protected by the Federal Confidentiality of Alcohol and Drug Abuse Patient Records regulations: The Federal rules restrict any use of the information to criminally investigate or prosecute any alcohol or drug abuse patient.[facility] HospitalIn the event this information is protected by the Federal Confidentiality of Alcohol and Drug Abuse Patient Records regulations: The Federal rules restrict any use of the information to criminally investigate or prosecute any alcohol or drug abuse patient.[facility] HospitalIn the event this information is protected by the Federal Confidentiality of Alcohol and Drug Abuse Patient Records regulations: The Federal rules restrict any use of the information to criminally investigate or prosecute any alcohol or drug abuse patient.[facility] HospitalIn the event this information is protected by the Federal Confidentiality of Alcohol and Drug Abuse Patient Records regulations: The Federal rules restrict any use of the information to criminally investigate or prosecute any alcohol or drug abuse patient.[facility] HospitalIn the event this information is protected by the Federal Confidentiality of Alcohol and Drug Abuse Patient Records regulations: The Federal rules restrict any use of the information to criminally investigate or prosecute any alcohol or drug abuse patient.[facility] HospitalIn the event this information is protected by the Federal Confidentiality of Alcohol and Drug Abuse Patient Records regulations: The Federal rules restrict any use of the information to criminally investigate or prosecute any alcohol or drug abuse patient.[facility] HospitalIn the event this information is protected by the Federal Confidentiality of Alcohol and Drug Abuse Patient Records regulations: The Federal rules restrict any use of the information to criminally investigate or prosecute any alcohol or drug abuse patient.[facility] HospitalIn the event this information is protected by the Federal Confidentiality of Alcohol and Drug Abuse Patient Records regulations: The Federal rules restrict any use of the information to criminally investigate or prosecute any alcohol or drug abuse patient.[facility] HospitalIn the event this information is protected by the Federal Confidentiality of Alcohol and Drug Abuse Patient Records regulations: The Federal rules restrict any use of the information to criminally investigate or prosecute any alcohol or drug abuse patient.[facility] HospitalIn the event this information is protected by the Federal Confidentiality of Alcohol and Drug Abuse Patient Records regulations: The Federal rules restrict any use of the information to criminally investigate or prosecute any alcohol or drug abuse patient.[facility] HospitalIn the event this information is protected by the Federal Confidentiality of Alcohol and Drug Abuse Patient Records regulations: The Federal rules restrict any use of the information to criminally investigate or prosecute any alcohol or drug abuse patient.[facility] HospitalIn the event this information is protected by the Federal Confidentiality of Alcohol and Drug Abuse Patient Records regulations: The Federal rules restrict any use of the information to criminally investigate or prosecute any alcohol or drug abuse patient.[facility] HospitalIn the event this information is protected by the Federal Confidentiality of Alcohol and Drug Abuse Patient Records regulations: The Federal rules restrict any use of the information to criminally investigate or prosecute any alcohol or drug abuse patient.[facility] HospitalIn the event this information is protected by the Federal Confidentiality of Alcohol and Drug Abuse Patient Records regulations: The Federal rules restrict any use of the information to criminally investigate or prosecute any alcohol or drug abuse patient.[facility] HospitalIn the event this information is protected by the Federal Confidentiality of Alcohol and Drug Abuse Patient Records regulations: The Federal rules restrict any use of the information to criminally investigate or prosecute any alcohol or drug abuse patient.[facility] Reason for Visit (unrecogniz ed section and content) Reason Comments Medication Problem Reason Comments Refill Request Reason Comments Refill Request LIOTHYRONINE Reason Comments Future Appointment Reason Comments Coil Tier Exam Reason Comments Radiology Mammogram Specialty Diagnoses / Procedures Referred By Contac t Referred To Contact [facility] Diagnoses Breast cancer screening by mammogram Procedures NILO SCREENING SCREENING MAMMOGRAPHY BI 2-VIEW BREAST INC Gaye Ross PA-C [address] [place] [address] [facility] [address] [place] [address] Referral ID Status Reason Start Date Expiration Date V isits Requested Visits Authorized [id number] Closed Auto-Generate d Referral 10/08/2021 11/07/2022 1 1 Reason Comments CARD Follow Up Annual PAF Reason Comments Appointment Reason Comments New Pain Reason Comments Cardiology Follow Up PAF Reason Comments Radiology Mammogram Specialty Diagnoses / Procedures Referred By Marvin t Referred To Contact [facility] Diagnoses Breast cancer screening by mammogram Procedures NILO SCREENING SCREENING MAMMOGRAPHY BI 2-VIEW BREAST INC Gaye Ross PA-C [address] [place] [address] [facility] [address] [place] [address] Referral ID Status Reason Start Date Expiration Date V isits Requested Visits Authorized [id number] Closed Auto-Generate d Referral 10/12/2022 11/11/2023 1 1 Reason Comments Results Reason Onset Date Comments Results 07/12/2023 Reason Comments CARD Follow Up 3 Month Reason Comments UTI Burning, urgency, st arted yesterday. Took azo Reason Comments New Patient Evaluation Reason Comments Benefits Investigation Reason Comments Non-Chemotherapy Treatment Specialty Diagnoses / Procedures Referred By Contac t Referred To Contact Diagnoses Iron 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 dietary iron intake Procedures IRON SUCROSE INJECTION PER 1 MG Lindsey Zuniga [address] [place] [address] [facility] [address] [place] [address] Referral ID Status Reason Start Date Expiration Date V isits Requested Visits Authorized [id number] Authorized 02/16/2024 04/25/2024 99 99 Reason Onset Date Comments Refill Request 02/23/2024 Reason Comments SOCIAL WORK SERVICES (1ST TIME TREATMENT ) Reason Comments Established Patient Reason Comments Patient Update Reason Comments Cardiology Follow Up AFIb Reason Comments Orders Reason Comments Preparations For Procedures Reason Onset Date Comments Refill Request 09/27/2024 Reason Comments CARD Follow Up 3 Month Paroxysmal atrial fibrillation Reason Comments Established Patient Knee Pain Knee Replacement Reason Comments Established Patient Knee Replacement Knee Pain Care Teams (unrecognized sec tion and content) Synthetic Department Supervisor Relationship Specialty Start Date End Date Sridhar Montero IV, MD [address] [place] [address] PCP - General Family Practice 06/09/21 Gaye Rowell PA-C [address] [facility] [address] [place] [address] Women's Health Specialist 05/19/18 Sridhar Romo MD [address] [place] [address] Endocrinology 05/19/18 Berto Hannon [address] [place] [address] Orthopedics 05/20/18 Todd Reyes MD Referring Orthopedics 01/23/20 Synthetic Department Supervisor Relationship Specialty Start Date End Date Sridhar Montero IV, MD [address] [place] [address] PCP - General Family Practice 06/09/21 Gaye Rowell PA-C [address] [address] Women's Health Specialist 05/19/18 Sridhar Rmoo MD [address] [place] [address] Endocrinology 05/19/18 Berto Hannon [address] [place] [address] Orthopedics 05/20/18 Todd Reyes MD Referring Orthopedics 01/23/20 Synthetic Department Supervisor Relationship Specialty Start Date End Date Sridhar Montero IV, MD [address] [place] [address] PCP - General Family Practice 06/09/21 Gaye Rowell PA-C [address] [employer] [facility] [address] [place] [address] Women's Health Specialist 05/19/18 Sridhar Romo MD [address] [place] [address] Endocrinology 05/19/18 Berto Hannon [address] [place] [address] Orthopedics 05/20/18 Todd Reyes MD Referring Orthopedics 01/23/20 Synthetic Department Supervisor Relationship Specialty Start Date End Date Sridhar Montero IV, MD [address] [place] [address] PCP - General Family Practice 06/09/21 Gaye Rowell PA-C [address] [facility] [facility] [address] [place] [address] Women's Health Specialist 05/19/18 Sridhar Romo MD [address] [place] [address] Endocrinology 05/19/18 Berto Hannon [address] [place] [address] Orthopedics 05/20/18 Todd Reyes MD Referring Orthopedics 01/23/20 Synthetic Department Supervisor Relationship Specialty Start Date End Date Sridhar Montero IV, MD [address] [place] [address] PCP - General Family Medicine 06/09/21 Gaye Rowell PA-C [address] [employer] [facility] [address] [place], [place] [id number] Women's Health Specialist 05/19/18 Sridhar Romo MD [address] [place] [address] Endocrinology 05/19/18 Berto Hannon [address] [place] [address] Orthopedics 05/20/18 Todd Reyes MD [address] [place] [address] Referring Orthopedics 01/23/20 Synthetic Department Supervisor Relationship Specialty Start Date End Date Sridhar Montero IV, MD [address] [place] [address] PCP - General Family Medicine 06/09/21 Gaye Rowell PA-C [address] [place] [address] Women's Health Specialist 05/19/18 Sridhar Romo MD [address] [address] Endocrinology 05/19/18 Berto Hannon [address] [place] [address] Orthopedics 05/20/18 Todd Reyes MD [address] [place] [address] Referring Orthopedics 01/23/20 Synthetic Department Supervisor Relationship Specialty Start Date End Date Sridhar Montero IV, MD [address] [place] [address] PCP - General Family Medicine 06/09/21 Gaye Rowell PA-C [address] [place] [address] Women's Health Specialist 05/19/18 Sridhar Romo, MD [address] [place] [address] Endocrinology 05/19/18 Berto Hannon [address] [place] [address] Orthopedics 05/20/18 Todd Reyes MD [address] [place] [address] Referring Orthopedics 01/23/20 Team Status: Active Member Role Status Dates Dr. Sridhar Montero DO Primary Care Provider Active Team Status: Inactive Member Role Status Dates Dr. Sridhar Montero DO Primary Care Provider Active Josh DENISE PA-C Attending Provider, Referring Pr ovider Active Synthetic Department Supervisor Relationship Specialty Start Date End Date Sridhar Montero IV, MD [address] [place] [address] (Work) PCP - General Family Medicine 06/09/21 Gaye Rowell PA-C [address] [address] Women's Health Specialist 05/19/18 StrathmereSridhar MD [address] [place] [address] Endocrinology 05/19/18 Berto Hannon [address] [place] [address] Orthopedics 05/20/18 Todd Reyes MD [address] [place] [address] Referring Orthopedics 01/23/20 Synthetic Department Supervisor Relationship Specialty Start Date End Date Sridhar Montero IV, DO [address] [place] [address] PCP - General Family Medicine 06/09/21 Gaye Rowell PA-C [address] [address] Women's Health Specialist 05/19/18 StrathmereSridhar sparrow MD [address] [place] [address] Endocrinology 05/19/18 Berto Hannon [address] [place] [address] Orthopedics 05/20/18 Todd Reyes MD [address] [place] [address] Referring Orthopedics 01/23/20 Synthetic Department Supervisor Relationship Specialty Start Date End Date Sridhar Montero IV, [address] [address] PCP - General Family Medicine 06/09/21 Gaye Rowell PA-C [address] [address] Women's Health Specialist 05/19/18 Sridhar Romo MD [address] [place] [address] Endocrinology 05/19/18 Berto Hannon [address] [place] [address] Orthopedics 05/20/18 Todd Reyes MD [address] [place] [address] Referring Orthopedics 01/23/20 Synthetic Department Supervisor Relationship Specialty Start Date End Date Sridhar Montero IV, DO [address] [place] [address] PCP - General Family Medicine 06/09/21 Gaye Rowell PA-C [address] [place] [address] Women's Health Specialist 05/19/18 Sridhar Romo MD [address] [place], [place] [id number] Endocrinology 05/19/18 Berto Hannon [address] [place] [address] Orthopedics 05/20/18 Todd Reyes MD [address] [place] [address] Referring Orthopedics 01/23/20 Yolanda Cash MD [address] [place] [address] Endocrinology 10/12/22 Synthetic Department Supervisor Relationship Specialty Start Date End Date Sridhar Montero IV, DO [address] [place] [address] (Work) PCP - General Family Medicine 06/09/21 Gaye Rowell PA-C [address] [place] [address] [id number] Women's Health Specialist 05/19/18 Sridhar Romo MD [address] [place], [place] [id number] Endocrinology 05/19/18 Berto Hannon [address] [place] [address] Orthopedics 05/20/18 Todd Reyes MD [address] [place] [address] Referring Orthopedics 01/23/20 Yolanda Cash MD [address] [place] [address] Endocrinology 10/12/22 Synthetic Department Supervisor Relationship Specialty Start Date End Date Sridhar Montero IV, DO [address] [place] [address] PCP - General Family Medicine 06/09/21 Gaye Rowell PA-C 1309 [facility] 100 [place] [address] Women's Health Specialist 05/19/18 Sridhar Romo MD [facility] [address] [address] Endocrinology 05/19/18 Berto Hannon [address] [place] [address] Orthopedics 05/20/18 Todd Reyes MD [address] [place] [address] Referring Orthopedics 01/23/20 Yolanda Cash MD [address] [place] [address] Endocrinology 10/12/22 Synthetic Department Supervisor Relationship Specialty Start Date End Date Sridhar Montero IV, DO [address] [place] [address] PCP - General Family Medicine 06/09/21 Gaye Rowell PA-C 1309 [facility] [address] [place] [address] Women's Health Specialist 05/19/18 Sridhar Romo MD [address] [place] [address] Endocrinology 05/19/18 Berto Hannon [address] [place] [address] Orthopedics 05/20/18 Todd Reyes MD [address] [place] [address] Referring Orthopedics 01/23/20 Yolanda Cash MD [address] [place] [address] Endocrinology 10/12/22 Synthetic Department Supervisor Relationship Specialty Start Date End Date Sridhar Montero IV, DO [address] [place] [address] PCP - General Family Medicine 06/09/21 Gaye Rowell PA-C 1309 [facility] 100 [place] [address] Women's Health Specialist 05/19/18 Sridhar Romo MD [address] [place] [address] Endocrinology 05/19/18 Berto Hannon [address] [address] Orthopedics 05/20/18 Todd Reyes MD [address] [address] Referring Orthopedics 01/23/20 Yolanda Cash MD [address] [place] [address] Endocrinology 10/12/22 Synthetic Department Supervisor Relationship Specialty Start Date End Date Sridhar Montero IV, DO [address] [place] [address] PCP - General Family Medicine 06/09/21 Gaye Rowell PA-C [address] [address] Women's Health Specialist 05/19/18 Sridhar Romo MD [address] [place] [address] Endocrinology 05/19/18 Berto Hannon 3975 [facility] [address] [address] Orthopedics 05/20/18 Todd Reyes MD [address] [place] [address] Referring Orthopedics 01/23/20 Yolanda Cash MD [address] [place] [address] Endocrinology 10/12/22 Synthetic Department Supervisor Relationship Specialty Start Date End Date Sridhar Montero IV, DO [address] [place] [address] PCP - General Family Medicine 06/09/21 Gaye Rowell PA-C 1309 [facility] 100 [place] [address] Women's Health Specialist 05/19/18 StrathmereSridhar sparrow MD [facility] [address] [place] [address] Endocrinology 05/19/18 Berto Hannon 3975 [facility] [address] [address] Orthopedics 05/20/18 Todd Ryees MD 3975 [facility] 102 [place] [address] Referring Orthopedics 01/23/20 Yolanda Cash MD [address] [place] [address] Endocrinology 10/12/22 Synthetic Department Supervisor Relationship Specialty Start Date End Date Sridhar Montero IV, DO [address] [place] [address] PCP - General Family Medicine 06/09/21 Gaye Rowell PA-C [address] [employer] [address] [place] [address] Women's Health Specialist 05/19/18 Sridhar Romo MD [address] [place] [address] Endocrinology 05/19/18 Berto Hannon [address] [place] [address] Orthopedics 05/20/18 Todd Reyes MD [address] [place], [place] [address] Referring Orthopedics 01/23/20 Yolanda Cash MD [address] [place] [address] Endocrinology 10/12/22 Synthetic Department Supervisor Relationship Specialty Start Date End Date Sridhar Montero IV, DO [address] [place] [address] PCP - General Family Medicine 06/09/21 Gaye Rowell PA-C [address] [place] [address] Women's Health Specialist 05/19/18 Sridhar Romo MD [address] [place] [address] Endocrinology 05/19/18 Berto Hannon [address] [place], [place] [address] Orthopedics 05/20/18 Todd Reyes MD [address] [facility] [address] [place], [place] [address] Referring Orthopedics 01/23/20 Yolanda Cash MD [address] [place] [address] Endocrinology 10/12/22 Synthetic Department Supervisor Relationship Specialty Start Date End Date Sridhar Montero IV, DO [address] [place] [address] PCP - General Family Medicine 06/09/21 Gaye Rowell PA-C [address] [place] [address] Women's Health Specialist 05/19/18 Sridhar Romo MD [address] [place] [address] Endocrinology 05/19/18 Berto Hannon [address] [facility] [address] [facility] 102 [place] [address] Orthopedics 05/20/18 Todd Reyes MD [address] [place] [address] Referring Orthopedics 01/23/20 Synthetic Department Supervisor Relationship Specialty Start Date End Date Sridhar Montreo IV, DO [address] [place] [address] PCP - General Family Medicine 06/09/21 Gaye Rowell PA-C [address] [place] [address] Women's Health Specialist 05/19/18 Sridhar Romo MD [address] [place] [address] Endocrinology 05/19/18 Berto Hannon [address] [place] [address] Orthopedics 05/20/18 Todd Reyes MD [address] [place] [address] Referring Orthopedics 01/23/20 Yolanda Cash MD [address] [place] [address] Endocrinology 10/12/22 Synthetic Department Supervisor Relationship Specialty Start Date End Date Sridhar Montero IV, DO [address] [place] [address] PCP - General Family Medicine 06/09/21 Gaye Rowell PA-C [address] [place] [address] Women's Health Specialist 05/19/18 Sridhar Room MD [address] [place] [address] Endocrinology 05/19/18 Berto Hannon [address] [address] Orthopedics 05/20/18 Todd Reyes MD [address] [address] Referring Orthopedics 01/23/20 Yolanda Cash MD [address] [place] [address] Endocrinology 10/12/22 Synthetic Department Supervisor Relationship Specialty Start Date End Date Sridhar Montero IV, DO [address] [place] [address] PCP - General Family Medicine 06/09/21 Gaye Rowell PA-C [address] [address] Women's Health Specialist 05/19/18 Sridhar Romo MD [address] [place] [address] Endocrinology 05/19/18 Berto Hannon [address] [facility] [address] [address] Orthopedics 05/20/18 Todd Reyes MD [address] [place], [place] [address]23 Referring Orthopedics 01/23/20 Yolanda Cash MD [address] [place] [address] Endocrinology 10/12/22 Synthetic Department Supervisor Relationship Specialty Start Date End Date Sridhar Montero IV, DO [address] [place] [address] PCP - General Family Medicine 06/09/21 Gaye Rowell PA-C [facility] 100 [place] [address] Women's Health Specialist 05/19/18 [place], Sridhar White MD [address] [place] [address] Endocrinology 05/19/18 Berto Hannon 3975 [facility] [employer] [address] [address] Orthopedics 05/20/18 Todd Reyes MD 3975 [facility] 102 [place] [address] Referring Orthopedics 01/23/20 Yolanda Cash MD [address] [place] [address] Endocrinology 10/12/22 Synthetic Department Supervisor Relationship Specialty Start Date End Date Sridhar Montero IV, DO [address] [place] [address] PCP - General Family Medicine 06/09/21 Gaye Rowell PA-C [address] [place] [address] Women's Health Specialist 05/19/18 Sridhar Romo MD [address] [place] [address] Endocrinology 05/19/18 Berto Hannon [address] [place] [address] Orthopedics 05/20/18 Todd Reyes MD [address] [place] [address] Referring Orthopedics 01/23/20 Yolanda Cash MD [address] [place] [address] Endocrinology 10/12/22 Synthetic Department Supervisor Relationship Specialty Start Date End Date Sridhar Montero IV, DO [address] [place] [address] PCP - General Family Medicine 06/09/21 Gaye Rowell PA-C [address] [place] [address] Women's Health Specialist 05/19/18 Sridhar Romo MD [address] [place], [place] [address] Endocrinology 05/19/18 Berto Hannon [address] [place] [address] Orthopedics 05/20/18 Todd Reyes MD [address] [place] [address] Referring Orthopedics 01/23/20 Yolanda Cash MD [address] [place] [address] Endocrinology 10/12/22 Synthetic Department Supervisor Relationship Specialty Start Date End Date Sridhar Montero IV, DO [address] [place] [address] PCP - General Family Medicine 06/09/21 Gaye Rowell PA-C [address] [address] Women's Health Specialist 05/19/18 Sridhar Romo MD [address] [place] [address] Endocrinology 05/19/18 Berto Hannon [address] [place] [address] Orthopedics 05/20/18 Todd Reyes MD [address] [place] [address] Referring Orthopedics 01/23/20 Yolanda Cash MD [address] [place] [address] Endocrinology 10/12/22 Synthetic Department Supervisor Relationship Specialty Start Date End Date Sridhar Montero IV, DO [address] [place] [address] PCP - General Family Medicine 06/09/21 Gaye Rowell PA-C 1309 [facility] 100 [place] [address] Women's Health Specialist 05/19/18 StrathmereSridhar MD [facility] [address] [address] Endocrinology 05/19/18 Berto Hannon [address] [address] Orthopedics 05/20/18 Todd Reyes MD 3975 [facility] 102 [place] [address] Referring Orthopedics 01/23/20 Yolanda Cash MD [address] [place] [address] Endocrinology 10/12/22 Synthetic Department Supervisor Relationship Specialty Start Date End Date Sridhar Montero IV, DO [address] [place] [address] PCP - General Family Medicine 06/09/21 Gaye Rowell PA-C 1309 [facility] 100 [place] [address] Women's Health Specialist 05/19/18 Sridhar Romo MD [address] [place] [address] Endocrinology 05/19/18 Berto Hannon [address] [facility] 102 [place] [address] Orthopedics 05/20/18 Todd Reyes MD [address] [facility] 102 [place], [place] [address] Referring Orthopedics 01/23/20 Yolanda Cash MD [address] [place] [address] Endocrinology 10/12/22 Synthetic Department Supervisor Relationship Specialty Start Date End Date Sridhar Montero IV, DO [address] [place] [address] PCP - General Family Medicine 06/09/21 Gaye Rowell PA-C [address] [address] Women's Health Specialist 05/19/18 Sridhar Romo MD [address] [place] [address] Endocrinology 05/19/18 Berto Hannon [address] [place] [address] Orthopedics 05/20/18 Todd Reyes MD [address] [place] [address] Referring Orthopedics 01/23/20 Yolanda Cash MD [address] [place] [address] Endocrinology 10/12/22 Synthetic Department Supervisor Relationship Specialty Start Date End Date Sridhar Montero IV, DO [address] [place] [address] PCP - General Family Medicine 06/09/21 Gaye Rowell PA-C 1309 [facility] 100 [place] [address] Women's Health Specialist 05/19/18 Sridhar Romo MD [address] [address] Endocrinology 05/19/18 Berto Hannon [address] [place] [address] Orthopedics 05/20/18 Todd Reyes MD [address] [place] [address] Referring Orthopedics 01/23/20 Yolanda Cash MD [address] [address] Endocrinology 10/12/22 Synthetic Department Supervisor Relationship Specialty Start Date End Date Sridhar Montero IV, DO [address] [place] [address] PCP - General Family Medicine 06/09/21 Gaye Rowell PA-C 1309 [facility] [address] [place] [address] Women's Health Specialist 05/19/18 Sridhar Romo MD 4302 [facility] 300 [place] [address] Endocrinology 05/19/18 Berto Hannon [address] [place] [address] Orthopedics 05/20/18 Todd Reyes MD [address] [place] [address] Referring Orthopedics 01/23/20 Yolanda Cash MD [address] [place] [address] Endocrinology 10/12/22 Synthetic Department Supervisor Relationship Specialty Start Date End Date Sridhar Montero IV, DO [address] [place] [address] PCP - General Family Medicine 06/09/21 Gaye Rowell PA-C [address] [place] [address] Women's Health Specialist 05/19/18 Sridhar Romo MD [address] [place] [address] Endocrinology 05/19/18 Berto Hannon [address] [place] [address] Orthopedics 05/20/18 Todd Reyes MD [address] [place] [address] Referring Orthopedics 01/23/20 Yolanda Cash MD [address] [place] [address] Endocrinology 10/12/22 Synthetic Department Supervisor Relationship Specialty Start Date End Date Sridhar Montero IV, DO [address] [place] [address] PCP - General Family Medicine 06/09/21 Gaye Rowell PA-C [address] [facility] 100 [place] [address] Women's Health Specialist 05/19/18 Sridhar Romo MD [address] [place] [address] Endocrinology 05/19/18 Berto Hannon [address] [address] Orthopedics 05/20/18 Todd Reyes MD [address] [address] Referring Orthopedics 01/23/20 Yolanda Cash MD [address] [place] [address] Endocrinology 10/12/22 Synthetic Department Supervisor Relationship Specialty Start Date End Date Sridhar Montero IV, DO [address] [place] [address] PCP - General Family Medicine 06/09/21 Gaye Rowell PA-C [address] [place] [address] Women's Health Specialist 05/19/18 [place], Sridhar White MD [address] [place] [address] Endocrinology 05/19/18 Berto Hannon [address] [address] Orthopedics 05/20/18 Todd Reyes MD [address] [address] Referring Orthopedics 01/23/20 Yolanda Cash MD [address] [place] [address] Endocrinology 10/12/22 Synthetic Department Supervisor Relationship Specialty Start Date End Date Sridhar Montero IV, DO [address] [place] [address] PCP - General Family Medicine 06/09/21 Gaye Rowell PA-C [address] [employer] [address] [place] [address] Women's Health Specialist 05/19/18 Sridhar Romo MD [address] [address] Endocrinology 05/19/18 Berto Hannon [address] [place], [place] [address] Orthopedics 05/20/18 Todd Reyes MD [address] [place], [place] [address] Referring Orthopedics 01/23/20 Yolanda Cash MD [address] [place] [address] Endocrinology 10/12/22 Synthetic Department Supervisor Relationship Specialty Start Date End Date Sridhar Montero IV, DO [address] [place] [address] PCP - General Family Medicine 06/09/21 Gaye Rowell PA-C [address] [employer] [address] [place] [address] Women's Health Specialist 05/19/18 Sridhar Romo MD [address] [place] [address] Endocrinology 05/19/18 Berto Hannon [address] [place] [address] Orthopedics 05/20/18 Todd Reyes MD [address] [place], [place] [address] Referring Orthopedics 01/23/20 Yolanda Cash MD [address] [place] [address] Endocrinology 10/12/22 Synthetic Department Supervisor Relationship Specialty Start Date End Date Sridhar Montero IV, DO [address] [place] [address] PCP - General Family Medicine 06/09/21 Gaye Rowell PA-C [address] [address] Women's Health Specialist 05/19/18 Sridhar Romo MD [address] [place] [address] Endocrinology 05/19/18 Berto Hannon [address] [address] [place] [address] Orthopedics 05/20/18 Todd Reyes MD [address] [place], [place] [address] Referring Orthopedics 01/23/20 Yolanda Cash MD [address] [place] [address] Endocrinology 10/12/22 Synthetic Department Supervisor Relationship Specialty Start Date End Date Sridhar Montero IV, DO [address] [place] [address] PCP - General Family Medicine 06/09/21 Gaye Rowell PA-C 1309 [facility] 100 [place] [address] Women's Health Specialist 05/19/18 StrathmereSridahr MD [address] [address] Endocrinology 05/19/18 Berto Hannon [address] [facility] [facility] [address] [facility] [address] [place] [address] Orthopedics 05/20/18 Todd Reyes MD [address] [place] [address] Referring Orthopedics 01/23/20 Yolanda Cash MD [address] [place] [address] Endocrinology 10/12/22 Synthetic Department Supervisor Relationship Specialty Start Date End Date Sridhar Montero IV, DO [address] [place] [address] PCP - General Family Medicine 06/09/21 Gaye Rowell PA-C [address] [address] Women's Health Specialist 05/19/18 Sridhar Romo MD [address] [place] [address] Endocrinology 05/19/18 Berto Hannon [address] [facility] 102 [place] [address] Orthopedics 05/20/18 Todd Reyes MD [address] [facility] 102 [place] [address] Referring Orthopedics 01/23/20 Yolanda Cash MD [address] [place] [address] Endocrinology 10/12/22 Synthetic Department Supervisor Relationship Specialty Start Date End Date Sridhar Montero IV, DO [address] [place] [address] PCP - General Family Medicine 06/09/21 Gaye Rowell PA-C [address] [address] Women's Health Specialist 05/19/18 Sridhar Romo MD [address] [place] [address] Endocrinology 05/19/18 Berto Hannon [address] [place] [address] Orthopedics 05/20/18 Todd Reyes MD [address] [facility] [place] [address] Referring Orthopedics 01/23/20 Yolanda Cash MD [address] [place] [address] Endocrinology 10/12/22 Synthetic Department Supervisor Relationship Specialty Start Date End Date Sridhar Montero IV, DO [address] [place] [address] PCP - General Family Medicine 06/09/21 Gaye Rowell PA-C 1309 [facility] 100 [place] [address] Women's Health Specialist 05/19/18 Sridhar Romo MD [facility] [place] [address] Endocrinology 05/19/18 Berto Hannon [address] [facility] [address] [place] [address] Orthopedics 05/20/18 Todd Reyes MD [address] [place] [address] Referring Orthopedics 01/23/20 Yolanda Cash MD [address] [place] [address] Endocrinology 10/12/22 Synthetic Department Supervisor Relationship Specialty Start Date End Date Sridhar Montero IV, DO [address] [place] [id number] PCP - General Family Medicine 06/09/21 Gaye Rowell PA-C 1309 [facility] 100 [place] [address] Women's Health Specialist 05/19/18 Sridhar Romo MD [address] [place] [address] Endocrinology 05/19/18 Berto Hannon [address] [facility] [address] 102 [place], [place] [address] Orthopedics 05/20/18 Todd Reyes MD [address] [facility] [address] [facility] 102 [place], [place] [address] Referring Orthopedics 01/23/20 Yolanda Cash MD [address] [place] [address] Endocrinology 10/12/22 Care Team (unrecognized sect ion and content) Care Team Personnel Name: SRIDHAR MONTERO DO Position: P4 Physician - Primary Care Med Service: Active Provider Member Role: Primary Care Physician Address: Address: [address] [place] [address] [place] [address]- [place] Care Team Related Persons Name: PER PATIENT, NONE Care Team Personnel Name: SRIDHAR MONTERO DO Position: P4 Physician - Primary Care Med Service: Active Provider Member Role: Primary Care Physician Address: Address: [address] [place] [address] Care Team Related Persons Name: PER PATIENT, NONE Care Team Personnel Name: SRIDHAR MONTERO DO Position: P4 Physician - Primary Care Med Service: Active Provider Member Role: Primary Care Physician Address: Address: [address] [place] [address] Care Team Related Persons Name: PER PATIENT, NONE Care Team Personnel Name: SRIDHAR MONTERO DO Position: P4 Physician - Primary Care Member Role: Primary Care Physician Address: Address: [address] [place] [address] Care Team Related Persons Name: PER PATIENT, NONE Care Team Personnel Name: SRIDHAR MONTERO DO Position: P4 Physician - Primary Care Med Service: Active Provider Member Role: Primary Care Physician Address: Address: [address] [place] [address] Care Team Related Persons Name: PER PATIENT, NONE Care Team Personnel Name: SRIDHAR MONTERO DO Position: P4 Physician - Primary Care Member Role: Primary Care Physician Address: Address: [address] [place] [address] Care Team Related Persons Name: PER PATIENT, NONE Care Team Personnel Name: SRIDHAR MONTERO DO Position: P4 Physician - Primary Care Member Role: Primary Care Physician Address: Address: [address] [place] [address] Care Team Related Persons Name: PER PATIENT, NONE Goals (unrecognized section and content) Goals may be documented in a n alternate section FOR RECORDS PERTAINING TO PATIENTS WHO ARE OR HAVE BEEN ENROLLED IN A CHEMICAL DEPENDENCY/SUBSTANCEABUSE PROGRAM, SOME INFORMATION MAY BE OMITTED. This clinical summary was aggregated from multiple sources. Caution should be exercised in using it in the provision of clinical care. This summary normalizes information from multiple sources, and as a consequence, information in this document may materially change the coding, format and clinical context of patient data. In addition, data may be omitted in some cases. CLINICAL DECISIONS SHOULD BE BASED ON THE PRIMARY CLINICAL RECORDS. [facility] [employer] [facility]. provides no warranty or guarantee of the accuracy or completeness of information in this document.
[2025-04-20 12:24] LABS: Hematocrit 36.2 % (37-47); Hemoglobin 11.8 g/dL (12.0-15.0); Immature Granulocytes Count 0.030 X10^3/uL (0.0-0.0); Mean Corp Hgb Conc 32.6 g/dL (32-36); Mean Corpuscular Volume 90.3 fL (81-99); Mean Platelet Vol. 11.1 fl (6.2-12.0); NRBC Flagged by Analyzer 0 % (0-5); Platelet Count 235 K/mm3 (150-450); RBC Distribution Width CV 14.1 % (11.6-14.6); RBC Distribution Width SD 46.8 fl (35.1-43.9); Red Blood Count 4.01 M/mm3 (4.2-5.4); White Blood Count 7.4 K/mm3 (4.4-11.0)
[2025-04-20 12:31] LABS: Partial Thromboplast Time 25.1 Seconds (24.1-36.2); Prothrombin Time (Protime)PT. 13.0 SECONDS (11.7-14.9)
--- NOTE | 2025-04-20 13:15 | EDS_ITS ---
HPI History of Present Illness Chief Complaint: Dizziness Informant: patient Narrative Narrative: 69-year-old female presenting to the emergency room chief complaint of off- balance. Patient states that she woke this morning sat up was unable to normally ambulate to the bathroom so she had to lay back down. She states she was falling to the right to the wall. She states with certain movements she feels that the room is spinning. She notes a generalized mild headache as well as nausea. States she has never had this before. Patient has a history of atrial fibrillation and is on flecainide. She is not anticoagulated. She is not clear as to why she is not anticoagulated. [facility] Medical History Osteoarthritis of right knee Cardiology follow-up encounter Wears glasses Loose, teeth Alcohol use Thyroid disease Arthritis Gastric reflux Former smoker History of atrial fibrillation Hx of fracture of leg Home Medications ?Medication ?Instructions ?Recorded ?Last Taken ?Type ergocalciferol (vitamin D2) 1,250 1,250 mcg PO QMONTH supplement 06/11/21 03/26/25 History mcg (50,000 unit) capsule (Vitamin D2) liothyronine 5 mcg tablet (Cytomel) 5 mcg PO DAILY thy roid 06/11/21 04/19/25 History metoprolol tartrate 25 mg tablet 25 mg PO BID heart 04/19/25 History pantoprazole 40 mg tablet,delayed 40 mg PO DAILY reflu x 06/11/21 04/19/25 History release vit C 250 mg-vit E 90 mg-zinc 40 1 tab PO BID eye glenda min 06/11/21 04/19/25 History mg-copper 1 [id number] capsule (PreserVision AREDS-2) acetaminophen 500 mg tablet 1,000 mg PO PRN 04/20/25 U nknown History calcitriol 0.25 mcg capsule 0.25 mcg PO DAILY 04/20/25 04/18/25 History flecainide 150 mg tablet 75 mg PO BID 04/20/25 History hydrocodone-acetaminophen 5-325mg 1 tab PO BID 5 Unknown History 5mg-325mg levothyroxine 100 mcg tablet 100 mcg PO DAILY 04/20/25 04/19/25 History Allergy/AdvReac Type Severity Reaction Status Date / Time codeine Allergy Other Verified 04/20/25 12:00 nickel Allergy Other Verified 04/20/25 12:00 sodium hypochlorite solution Allergy Rash Verified 04/20/25 12:00 (From Dakin's Solution) adhesive tape AdvReac Rash Verified 04/20/25 12:00 Family History no significant family his Surgical History History of total knee arthroplasty Hx of prior ablation treatment History of back surgery Hx of knee surgery Social History Smoking Status: Former smoker ROS ROS ED Constitutional Constitutional ED: Denies chills or weight loss Eyes Eyes: Denies blurry vision, change in vision or diplopia ENT ENT ED: Reports other Details: Chronic tinnitus ; Denies ear pain, rhinorrhea or sore throat Cardiovascular Cardiovascular: Denies chest pain, orthopnea, palpitations or racing heartbeat Respiratory/Chest Respiratory/Chest: Denies cough, dyspnea or orthopnea Gastrointestinal Gastrointestinal: Reports nausea; Denies abdominal pain, diarrhea or vomiting Genitourinary Genitourinary ED: Denies dysuria, hematuria or urinary frequency Musculoskeletal Musculoskeletal: Denies arthralgias or myalgias Integumentary Denies abscess or rash Neurologic Neurologic: Reports headache(s) and other Details: Generalized weakness off- balance sensation chronic left leg weakness ; Denies paresthesias or weakness Psychiatric Psychiatric: Denies anxiety, depression, suicidal ideation or suicidal thoughts Endocrine Endocrinology: Denies polydipsia, polyphagia or polyuria Allergic/Immunologic Allergic/Immunologic ED: Denies mouth swelling, tongue swelling or urticaria EXAM Physical Exam Const Vital Signs: 04/20/25 11:51 04/20/25 12:05 04/20/25 12:34 Temperature 96.4 F L Temperature Source Oral Pulse Rate 72 64 Respiratory Rate 16 Blood Pressure 151/82 H 154/72 H Blood Pressure Mean 105 99 Pulse Ox 99 Oxygen Delivery Method Room Air Room Air 04/20/25 12:35 04/20/25 13:05 04/20/25 13:26 Temperature 96.4 F L Temperature Source Pulse Rate 69 66 66 Respiratory Rate 14 12 12 Blood Pressure 148/64 H 143/77 H 143/77 H Blood Pressure Mean 92 99 99 Pulse Ox 100 99 99 Oxygen Delivery Method 04/20/25 13:30 Temperature Temperature Source Pulse Rate 65 Respiratory Rate Blood Pressure 131/63 H Blood Pressure Mean 85 Pulse Ox 99 Oxygen Delivery Method Positive well nourished and well developed General Appearance ED: well developed and NAD HEENT Reports normocephalic, head/scalp atraumatic and moist mucous membranes Eyes PERRL and EOMs intact bilaterally Neck no lymphadenopathy, supple and no JVD Resp normal respiratory effort and clear to auscultation bilaterally Cardio regular rate, regular rhythm and no murmurs GI normal to inspection, nondistended, normoactive bowel sounds and non-tender Palpation: soft Back/Spine no CVA tenderness and normal ROM Extremity normal to inspection General Extremety ED: Negative for edema General Extremity: Negative for edema Neuro oriented x3 and CN's II-XII intact bilaterally Derik Coma Scale: document GCS findings Spontaneous Obeys Commands Oriented 15 Sensorium / Orientation: alert Speech: speech normal Motor Exam: strength 5/5 throughout Psych mental status grossly normal Mood & Affect: Negative for depressed or tearful Skin no rashes or lesions noted and no wounds MDM MDM MDM Narrative Medical decision making narrative: Differential diagnosis includes vertigo stroke large vessel occlusion intracranial hemorrhage the dehydration electrolyte abnormalities Stroke team was called into triage. Patient was taken down for emergent head CT and CTA both of which have returned negative for acute. She was assessed by [facility] telemetry neurology. Basic blood work was evaluated. Plan of care will be admission into hospital for further evaluation and probable MRI. History & Record Review Discussion w/independent historian: Patient Additional record(s) reviewed:: Prior labs Lab Data Attestation: I reviewed the patient's lab results. Labs: Laboratory Results - last 24 hr 04/20/25 04/20/25 11:56 12:05 WBC 7.4 RBC 4.01 L Hgb 11.8 L Hct 36.2 L MCV 90.3 MCH 29.4 MCHC 32.6 RDW Std Deviation 46.8 H RDW Coeff of Juan Daniel 14.1 Plt Count 235 MPV 11.1 Immature Gran % (Auto) 0.400 Neut % (Auto) 65.3 Lymph % (Auto) 17.5 L Throckmorton % (Auto) 7.1 Eos % (Auto) 8.1 H Baso % (Auto) 1.6 H Absolute Neuts (auto) 4.8 Absolute Lymphs (auto) 1.30 Nucleated RBC % 0 PT 13.0 INR 1.0 APTT 25.1 Sodium 140 Potassium 3.8 Chloride 103 Carbon Dioxide 26.2 Anion Gap 11 BUN 15 Creatinine 0.92 Estim Creat Clear Calc 57.70 Est GFR (MDRD) Non-Af 68 BUN/Creatinine Ratio 16.2 Glucose 135 H Calcium 9.5 Troponin T High Sens < 6 POC Glucose 119 H Radiography Diagnostic Testing: Clinical Impression(s) from Imaging Studies Brain CT 04/20/25 12:05 IMPRESSION: No CT evidence of acute intracranial hemorrhage, infarct, or significant mass effect. Communication notice: The the impression above was communicated by Dr. Alex Lopez by telephone to Dr. Justen Snider on 04/20/2025 at 12:27 pm with readback verification. Reading Location: [facility] Head/Neck CTA 04/20/25 12:05 IMPRESSION: No hemodynamically significant stenosis in the head and neck. No aneurysm. Reading Location: [facility] EKG Initial EKG: Attestation: I personally reviewed and interpreted this EKG as follows: Comments: Normal sinus rhythm ventricular rate of 65 bpm Management Discussion w/another healthcare provider: Hospitalist, Experienced Truck Driver ([facility] teleneurology) and Radiologist Discharge Plan Dx/Rx/DC Orders Clinical Impression: Ataxia, Nausea, PAF (paroxysmal atrial fibrillation) Disposition Disposition: Acute Care Hospital [facility] Discharge Date/Time: 04/20/25 14:37 NIHSS NIHSS 1a. Level of Consciousness: 0 - Alert; keenly responsive 1b. LOC Questions: 0 - Answers BOTH questions correctly 1c. LOC Commands: 0 - Performs BOTH tasks correctly 2. Best Gaze: 0 - Normal 3. Visual: 0 - No visual loss 4. Facial Palsy: 0 - Normal symmetrical movements 5a. Left Arm: 0 - No drift; arm holds 90 (or 45) degrees for full 10 seconds 5b. Right Arm: 0 - No drift; arm holds 90 (or 45) degrees for full 10 seconds 6a. Left Le - Some effort against gravity; 6b. Right Le - No drift; leg holds 30-degree position for full 5 seconds 7. Limb Ataxia: 1 - Present in 1 limb 8. Sensory: 0 - Normal; no sensory loss 9. Best Language: 0 - No aphasia; normal 10. Dysarthria: 0 - Normal 11. Extinction and Inattention: 0 - No abnormality Total: 3
[2025-04-20 13:16] LABS: Anion Gap 11 (7-18); BUN 15 mg/dL (4-19); BUN/Creat Ratio 16.2 RATIO (10-20); Calcium,Total 9.5 mg/dL (7.6-11.0); Carbon Dioxide 26.2 mmol/L (20.0-29.0); Chloride 103 mmol/L (96-106); Estimated Creatinine Clearance 57.70 ml/min (50-250); Glucose 135 mg/dL (70-99); Potassium 3.8 mmol/L (3.5-5.1); Troponin T High Sensitivity < 6 ng/L (<=14)
--- NOTE | 2025-04-20 13:38 | ECHOD_ITS ---
Reason For Study Reason For Study: TIA/STROKE Procedure This was a 2D Doppler, Color Flow transthoracic echocardiogram. Exam performed portable in ED. Left Ventricle Normal LV size. Normal left ventricular thickness. The estimated ejection fraction is 65???70 %. Normal diastology for age. Right Ventricle Normal RV size. Normal systolic function. Atria The left atrium is mildly enlarged. The right atrium is mildly enlarged. Intra- atrial septum mildly thin with no significant mobility appreciated. Possible color Doppler signal indicating a PFO/ASD. Mitral Valve Mild diffuse mitral valve thickening. There is no mitral valve stenosis. Mild (1+) mitral valve insufficiency. Tricuspid Valve Normal tricuspid valve. There is no tricuspid stenosis. Mild (1+) tricuspid valve insufficiency. Aortic Valve Trisinus/trileaflet aortic valve. Mild diffuse aortic valve thickening. There is no aortic valve stenosis. Trivial aortic valve insufficiency. Pulmonic Valve Normal pulmonic valve. There is no pulmonic valvular stenosis. Mild (1+) pulmonic valve insufficiency. Great Vessels Ascending aorta normal size measured at 3.3 cm. IVC mildly dilated with normal respiratory collapse. Right atrial pressure estimated at 5-10 mmHg. Pericardium/Pleural No pericardial effusion. MMode/2D Measurements & Calculations LVIDd: 4.6 cm IVSd: 0.94 cm asc Aorta Diam: 3.3 cm LVIDs: 2.5 cm LVPWd: 0.85 cm RVDd: 2.8 cm FS: 45.1 % LAV(MOD-bp): 61.7 ml LVAd ap4: 26.5 cm2 LVAd ap2: 23.3 cm2 LAV(MOD-bp) Indexed: 35.2 ml/m2 LVLd ap4: 7.8 cm LVLd ap2: 7.6 cm LAV(MOD-sp2): 54.1 ml EDV(MOD-sp4): 74.5 ml EDV(MOD-sp2): 59.3 ml LAV(MOD-sp4): 65.7 ml EDV(sp4-el): 76.5 ml EDV(sp2-el): 60.6 ml LVAs ap4: 13.4 cm2 LVAs ap2: 11.3 cm2 LVLs ap4: 6.4 cm LVLs ap2: 6.3 cm ESV(MOD-sp4): 24.5 ml ESV(MOD-sp2): 18.5 ml ESV(sp4-el): 23.5 ml ESV(sp2-el): 17.3 ml EF(MOD-sp4): 67.2 % EF(MOD-sp2): 68.7 % EF(sp4-el): 69.3 % SV(MOD-sp4): 50.0 ml SV(MOD-sp2): 40.7 ml EDV(MOD-bp): 67.2 ml SI(MOD-sp4): 28.5 ml/m2 SI(MOD-sp2): 23.2 ml/m2 ESV(MOD-bp): 21.5 ml EF(MOD-bp): 68.0 % SV(sp4-el): 53.0 ml LA dimension(2D): 3.6 cm LA A4 area: 21.2 cm2 RA A4 area: 17.1 cm2 TAPSE: 2.7 cm Time Measurements MV dec time: 0.16 sec Doppler Measurements & Calculations MV E max kelvin: 115.7 cm/sec Lat Peak E' Kelvin: 10.8 cm/sec Med Peak E' Kelvin: 10.6 cm/sec MV A max kelvin: 36.5 cm/sec E/E' lat: 10.8 E/E' med: 10.9 MV E/A: 3.2 Ao V2 max: 132.4 cm/sec LV V1 max: 87.9 cm/sec MV dec slope: 708.3 cm/sec2 Ao max P.0 mmHg LV V1 max P.1 mmHg Ao V2 mean: 89.1 cm/sec LV V1 mean P.9 mmHg Ao mean P.7 mmHg LV V1 mean: 64.6 cm/sec Ao V2 VTI: 32.1 cm LV V1 VTI: 21.6 cm AV (velocity ratio): 0.67 PA V2 max: 74.5 cm/sec ECHO/Echo Complete Interpretation Summary The estimated ejection fraction is 65???70 %. Normal LV size. Normal left ventricular thickness. Normal diastology for age. Mild (1+) mitral valve insufficiency. Mild (1+) tricuspid valve insufficiency. Mild (1+) pulmonic valve insufficiency. Intra-atrial septum mildly thin with no significant mobility appreciated. Possi ble color Doppler signal indicating a PFO/ASD. IVC mildly dilated with normal respiratory collapse. Right atrial pressure leticia mated at 5-10 mmHg. If clinically indicated recommend completion of a bubble study to help further evaluate for a PFO/ASD. If the bubble study is inadequate for visualization also can consider a transesophageal echoc ardiogram which will help to further assess for a possible PFO/ASD. Ordering Physician: Alexi Ruiz Referring Physician: Irvin Muller Performed By: Emma Katz RDCS
--- NOTE | 2025-04-20 13:38 | MRI_ITS ---
PROCEDURE: BRAIN WITHOUT CONTRAST 04/20/2025 REASON FOR EXAM: CVA TECHNIQUE: Procedure Code: MRIBR Modality: MR Procedure: BRAIN WITHOUT CONTRAST Multiplanar and multisequence images were obtained. COMPARISON: CT head 04/20/2025. FINDINGS: Brain: Foci of hyperintense signal on T2 and FLAIR which are nonspecific but most likely due to chronic small vessel ischemia. Parenchymal volume loss consistent with brain atrophy. No restricted diffusion. No hemorrhage. No mass-effect or midline shift. The orbits are unremarkable. The midline structures and craniocervical junctions are within normal limits. No ventriculomegaly. Ventricles: Hepatomegaly. Major Intracranial Vessels: Patent Sinuses: Clear. Mastoids: Clear. MRI/Brain without Contrast IMPRESSION: No acute brain abnormalities. White matter changes which are nonspecific but most likely due to chronic small -vessel ischemia. Reading Location: [facility]
--- NOTE | 2025-04-20 13:38 | HP.PCM.HOS_ITS ---
HPI - General General Date of Admission: 04/20/25 Date of Service: 04/20/25 Chief Complaint: Dizziness HPI Narrative BELLA MONROE, is a 69 F with past medical history is known for paroxysmal atrial fibrillation with 3 previous ablations currently in sinus rhythm, hypothyroidism and GERD who presented to the emergency department with dizziness. Per patient she was in her usual state of health prior to going to bed woke up on the morning of her presentation with loss of balance. Patient felt she was leaning into the wall on 1 side. She later developed nausea and vomited a couple of times. She did admit to subjective fever but denied any chills. Presented to the emergency department stroke alert was called underwent initial imaging studies with CT and CTA of the head and neck which came back unremarkable. Subsequently admitted for stroke workup [facility] Medical History Osteoarthritis of right knee Cardiology follow-up encounter Wears glasses Loose, teeth Alcohol use Thyroid disease Arthritis Gastric reflux Former smoker History of atrial fibrillation Hx of fracture of leg Home Medications ?Medication ?Instructions ?Recorded ?Last Taken ?Type ergocalciferol (vitamin D2) 1,250 1,250 mcg PO QMONTH supplement 06/11/21 03/26/25 History mcg (50,000 unit) capsule (Vitamin D2) liothyronine 5 mcg tablet (Cytomel) 5 mcg PO DAILY thy roid 06/11/21 04/19/25 History metoprolol tartrate 25 mg tablet 25 mg PO BID heart 04/19/25 History pantoprazole 40 mg tablet,delayed 40 mg PO DAILY reflu x 06/11/21 04/19/25 History release vit C 250 mg-vit E 90 mg-zinc 40 1 tab PO BID eye glenda min 06/11/21 04/19/25 History mg-copper 1 [id number] capsule (PreserVision AREDS-2) acetaminophen 500 mg tablet 1,000 mg PO PRN 04/20/25 U nknown History calcitriol 0.25 mcg capsule 0.25 mcg PO DAILY 04/20/25 04/18/25 History flecainide 150 mg tablet 75 mg PO BID 04/20/25 History hydrocodone-acetaminophen 5-325mg 1 tab PO BID 12/26/2 5 Unknown History 5mg-325mg levothyroxine 100 mcg tablet 100 mcg PO DAILY 04/20/25 04/19/25 History Allergy/AdvReac Type Severity Reaction Status Date / Time codeine Allergy Other Verified 04/20/25 12:00 nickel Allergy Other Verified 04/20/25 12:00 sodium hypochlorite solution Allergy Rash Verified 04/20/25 12:00 (From Dakin's Solution) adhesive tape AdvReac Rash Verified 04/20/25 12:00 Family History no significant family his Surgical History History of total knee arthroplasty Hx of prior ablation treatment History of back surgery Hx of knee surgery Social History Smoking Status: Former smoker ROS ROS Narrative GENERAL: denies fever, chills, night sweats, HEENT: denies headache, sinus congestion, RESPIRATORY: denies cough, sputum production, CARDIAC: denies chest pain, palpitations, orthopnea, GASTROINTESTINAL: Nausea and vomiting GENITOURINARY: denies dysuria, urgency, frequency, EXTREMITY: denies swelling MUSCULOSKELETAL: denies current joint pain or tenderness NEUROLOGIC: Loss of balance HEMATOLOGIC: denies easy bruising and/or hemorrhage INTEGUMENT: denies rashes PSYCHIATRIC: denies suicidal or homicidal ideation Patient's Goals Of Care . What would you like to achieve or improve as a result of your hospital stay?: To get better Vital Signs Vital Signs Vital Signs: 04/20/25 11:51 04/20/25 12:05 04/20/25 12:34 Temperature 96.4 F L Temperature Source Oral Pulse Rate 72 64 Respiratory Rate 16 Blood Pressure 151/82 H 154/72 H Blood Pressure Mean 105 99 Pulse Ox 99 Oxygen Delivery Method Room Air Room Air 04/20/25 12:35 04/20/25 13:05 04/20/25 13:26 Temperature 96.4 F L Temperature Source Pulse Rate 69 66 66 Respiratory Rate 14 12 12 Blood Pressure 148/64 H 143/77 H 143/77 H Blood Pressure Mean 92 99 99 Pulse Ox 100 99 99 Oxygen Delivery Method 04/20/25 13:30 Temperature Temperature Source Pulse Rate 65 Respiratory Rate Blood Pressure 131/63 H Blood Pressure Mean 85 Pulse Ox 99 Oxygen Delivery Method Weight Weight: 65 kg Body Mass Index (BMI) 22.4 Physical Exam Narrative GENERAL: cooperative HEENT: Atraumatic; normocephalic EYES; Anicteric, Normal Conjunctiva NECK; supple, normal thyroid, RESPIRATORY: Diminished to auscultation CARDIOVASCULAR: Regular S1 S2, GI: soft, normoactive bowel sounds, : No Renal angle tenderness; EXTREMITIES: No edema, no clubbing, MUSCULOSKELETAL: no muscle wasting NEURO: no lateralizing signs, no upper or lower extremity ataxia SKIN: No Rash PSYCH; Flat affect Results Lab / Micro Data 04/20/25 12:05 04/20/25 12:05 Labs: Laboratory Results - last 24 hr 04/20/25 11:56: POC Glucose 119 H 04/20/25 12:05: WBC 7.4, RBC 4.01 L, Hgb 11.8 L, Hct 36.2 L, MCV 90.3, MCH 29.4, MCHC 32.6, RDW Std Deviation 46.8 H, RDW Coeff of Juan Daniel 14.1, Plt Count 235, MPV 11.1, Immature Gran % (Auto) 0.400, Neut % (Auto) 65.3, Lymph % (Auto) 17.5 L, Foard % (Auto) 7.1, Eos % (Auto) 8.1 H, Baso % (Auto) 1.6 H, Absolute Neuts (auto) 4.8, Absolute Lymphs (auto) 1.30, Nucleated RBC % 0, PT 13.0, INR 1.0, APTT 25.1, Sodium 140, Potassium 3.8, Chloride 103, Carbon Dioxide 26.2, Anion Gap 11, BUN 15, Creatinine 0.92, Estim Creat Clear Calc 57.70, Est GFR (MDRD) Non-Af 68, BUN/Creatinine Ratio 16.2, Glucose 135 H, Calcium 9.5, Troponin T High Sens < 6 Imaging Radiology Impression Brain CT 04/20/25 12:05 IMPRESSION: No CT evidence of acute intracranial hemorrhage, infarct, or significant mass effect. Communication notice: The the impression above was communicated by Dr. Alex Lopez by telephone to Dr. Justen Snider on 04/20/2025 at 12:27 pm with readback verification. Reading Location: [id number] Head/Neck CTA 04/20/25 12:05 IMPRESSION: No hemodynamically significant stenosis in the head and neck. No aneurysm. Reading Location: [id number] Assessment & Plan Assessment/Plan (1) Dizziness: PLAN: Plan Patient is a 69-year-old lady presented with sudden onset of dizziness with associated nausea and vomiting 1. Dizziness ? Patient has been admitted to monitored bed to undergo stroke workup. Ordered every 4 neurochecks 2D echo MRI of the brain as well as fasting lipid. Patient was started on statin therapy as well as antiplatelets consult placed to [facility] 2. Paroxysmal A-fib ? With previous ablation patient presented in sinus rhythm currently on flecainide as well as metoprolol placed on continuous study 3. Hypothyroidism ? Patient is on levothyroxine home dose continued 4. GERD ? Patient is on PPI 5. DVT prophylaxis ? Placed on Lovenox CODE STATUS; full code Time spent in the patient's overall evaluation,decision-making process, review of diagnostic data, adjustment of management, discussion with other providers, nursing nursing and ancillary staff involved in patient's care documentation, 55 minutes Charges/Coding Visit Charges Inpatient E&M: 15607 Init Hosp L2
--- NOTE | 2025-04-20 13:52 | CM.ED ---
Social work Reason for referral: stroke alert SW responded to stroke alert called in [facility] ED triage. No family was present with patient and patient was taken immediately for imaging. SW checked in later, introducing self and role at [facility]. Patient stated having no needs at this time and already speaking with patient's sons. SW to remain available as needed. Ramona Chapman, PROCESS COORDINATOR, [employer]
--- OUTSIDE RECORDS SUMMARY | 2025-04-20 14:14 | XMS RPT_ITS | CCD ---
Author Organization [facility] Care Team Providers Care Rn Integrity Name Role Phone Jesse Johnsonleen Unavailable Unavailable Saumya Woodall Unavailable Unavailable Aida Gil Unavailable Unavailable Saumya Parks Unavailable Unavailable Aida Gil Unavailable Unavailable Chi Zamora Unavailable Unavailable Dez Johnson Unavailable Unavailable Patrick Jc Unavailable Unavailable Aida Gil Unavailable Unavailable Unavailable NADIRA AMIN, REMIGIO Deleon Primary Care Physician SRIDHAR MONTERO DO Primary Care Physician [phone] Gaye Rowell PA-C Unavailable [phone] Sridhar Romo MD Unavailable Berto Hannon Unavailable [phone] Todd Reyes MD Unavailable Kylah ZAMAN MD, Michael Primary Care Provider [phone] Gaye Rowell PA-C Unavailable [phone] Sridhar Romo MD Unavailable Berto Hannon Unavailable Todd Reyes MD Unavailable Kylah ZAMAN MD, Michael Primary Care Provider [phone] Kylah ZAMAN DO, Michael Primary Care Provider [phone] Yolanda Cash MD Unavailable Berto Hannon Unavailable Todd Reyes MD Unavailable [phone] Halko IV, DO, Delfina Primary Care Provider Yolanda Cash MD Unavailable [phone] Halko IV, DO, Delfina Primary Care Provider YOLANDA CASH MD Attending Unavailable HALKO DO, SRIDHAR Primary Care Unavailable HALKO DO, SRIDHAR Attending Unavailable HALKO DO, SRIDHAR Primary Care Unavailable YOLANDA CASH MD Attending Unavailable HALKO DO, SRIDHAR Primary Care Unavailable [facility] Attending Unavailabl e HALKO DO, SRIDHAR Primary Care Unavailable YOLANDA CASH MD Attending Unavailable HALKO DO, SRIDHAR Primary Care Unavailable Yolanda Cash MD Unavailable Enrique Bass Referring Unavailable ToneybourEnrique Attending Unavailable Halko, Sridhar Primary Care Unavailable Michael Harp Attending Unavailable Halko, Sridhar Primary Care Unavailable Yolanda Cash MD Unavailable [phone] PROVIDER, UNKNOWN Referring Unavailable HALKO IV, [...] [BEE STING] allergy to substance 6 Anaphylaxis [facility] Work Phone: (20 sources) Adhesive Tape Allergy to substance Eruption of skin (disorder) [facility] (20 sources) Bee/Wasp/Ant venom Allergy to substance Anaphylaxis (disorder) [facility] (20 sources) Codeine; Translations: [codeine] Drug Allergy 7 Headache (finding), Intolerance [facility] (20 sources) Cortisone; Translations: [cortisone] Drug Allergy 0 Blushing, function (observable entity), Other: See Comments [facility] (20 sources) Hypochlorite; Translations: [sodium hypochlorite topical] Drug Allergy Skin irritation (disorder) [facility] (20 sources) Metal unspecified Allergy to substance Unknown (qualifier value) [facility] (20 sources) Adhesive Tape; Translations: [ADHESIVE TAPE (ROSINS)] Allergy to substance 6 Rash, Itching [facility] (20 sources) Hypochlorite; Translations: [SODIUM HYPOCHLORITE SOLUTION] Drug Allergy 0 Unknown [facility] (20 sources) nickel; Translations: [NICKEL] Drug Allergy 0 Unknown [facility] (20 sources) Vanadium; Translations: [VANADIUM] Drug Allergy 0 Unknown [facility] (20 sources) Adhesive Tape-Silicones; Translations: [ADHESIVE TAPE-SILICONES] Drug Allergy Unknown [facility] (20 sources) Bee Venom Protein (Honey Bee); Translations: [BEE VENOM PROTEIN (HONEY BEE)] Drug Allergy Anaphylaxis [facility] Work Phone: (20 sources) Bees; Translations: [BEES] Allergy to substance 4 Anaphylaxis [facility] Work Phone: (2 sources) Adhesive Tape; Translations: [adhesive tape] Propensity to adverse reactions [address] [facility] (1 source) Codeine Drug Allergy [address] [facility] (1 source) Hypochlorite Drug Allergy 4 [facility] (1 source) nickel Drug Allergy 4 [facility] Medications Current Medications Medication Drug Class(es) Dates Sig (Normalized) Sig (Original) acetaminophen 500 mg oral tablet (5 sources) Start: 03-08-2024 End: 09-04-2024 acetaminophen 500 mg oral tablet Dose : 1,000 mg = 2 tab(s), Oral, q8h, X 30 day(s), # 180 tab(s), 5 Refill(s), 09/04/24 9:10:00 AM EDT, [id number], 168.5, cm, 03/08/24 8:28:00 EST, Height, [...] take 1 tablet by mouth twice daily [place] 325- 5 mg oral tablet Dose = 1 tab(s), Oral, BID, fill on or after 12/28/2024, X 30 day(s), # 60 tab(s), 0 Refill(s), [facility], Knee osteoarthritis, 168.5, cm, 12/21/24 8:33:00 EDT, Height, 68.5, kg, 12/21/24 8:33:00 EDT, Dosing Weight Start Date: 12/21/24 Stop Date: 01/20/25 Status: Ordered Medication Dispense Status: Completed Quantity: 60.0 Unit: tab(s) Total Allowed Fills: 1 Fills Dispensed: 0 Indications: Unilateral primary osteoarthritis, unspecified knee; Start: 09-21-2024 End: 10-21-2024 take 1 tablet by mouth twice daily [place] 325- 5 mg oral tablet Dose = 1 tab(s), Oral, BID, fill on or after 12/07/2024, X 30 day(s), # 60 tab(s), 0 Refill(s), Pharmacy: [facility]/pharmacy #4605, Knee osteoarthritis, 168.5, cm, 09/21/24 8:36:00 [...] 81 mg by mouth once daily. calcitriol 0.14212 mg oral capsule (20 sources) Vitamin D3 [...] 0 Refill(s), 02/02/24 9:01:00 AM EDT, Pharmacy: [facility]/pharmacy #4605, 168.5, cm, 01/14/24 9:28:00 EDT, Height, [...] tab(s), 0 Refill(s), 12/29/21 13:29:00 EDT, Pharmacy: [facility]/pharmacy #4605, 172, cm, 12/19/21 10:26:00 EDT, Height, 73.4 Start Date: 12/22/21 Stop Date: 12/29/21 Status: Ordered Start: 07-08-2021 End: 07-15-2021 Cipro 250 mg oral tablet Dos e : 250 mg = 1 tab(s), Oral, q12h, X 7 day(s), # 14 tab(s), 0 Refill(s), 07/15/21 12:08:00 EDT, [facility], 170, cm, 07/08/21 11:53:00 EDT, Height, [...] S41.111A., # 100 EA, 1 Refill(s), [facility], Skin tear of right upper extremity, 172, cm, 05/06/22 14:21:00 EST, Height, 73 Start Date: 05/06/22 Status: Ordered Quantity: 100.0 Unit: EA Repeat number: 2 Indication: Laceration without foreign body of right upper arm, initial encounter Start: 05-06-2022 DME MISCellane ous See Instructions, dispense 100 2x3 inches telfa pads; dx S41.111A., # 100 EA, 1 Refill(s), [facility], Skin tear of right upper extremity, 172, cm, 05/06/22 14:21:00 EST, Height, 73 Start Date: 05/06/22 Status: Ordered docusate sodium 50 mg / sennosides, halfway 8.6 mg oral tablet (1 source) Start: [...] cap(s), 0 Refill(s), 05/16/22 14:54:00 EST, [facility], 172, cm, 05/06/22 14:21:00 EST, Height, 73 Start Date: 05/06/22 Stop Date: 05/16/22 Status: Ordered [id number] 0.3 ml EPINEPHrine 1 mg/ml auto-injector (20 sources) alpha-Adrenergic Agonist, beta-Adrenergic Agonist, Catecholamine Start: 12-21-2024 EpiPen 2-Eze 0.3 mg injectable kit Dose : 0.3 mg = 1 kit, Intramuscular, AsDirected, PRN Allergic reaction, dispense one 2 pack auto injector kit, # 1 kit(s), 1 Refill(s), [facility], 168.5, cm, 12/21/24 8:33:00 EDT, Height, [...] kit, # 1 kit(s), 1 Refill(s), [facility], 171, cm, 01/11/23 13:50:00 EDT, Height, kg, 01/11/23 13:50:00 EDT, Dosing Weight Start Date: 01/11/23 Status: Ordered Quantity: 1.0 Unit: kit(s) Repeat number: 2 Start: 06-06-2021 EpiPen 2-Eze 0 .3 mg injectable kit Dose : 0.3 mg = 1 kit, Intramuscular, AsDirected, PRN Allergic reaction, dispense one 2 pack auto injector kit, # 1 kit(s), 1 Refill(s), [facility], 170, cm, 06/06/21 10:07:00 EST, Height, kg, 06/06/21 10:07:00 EST, Dosing Weight Start Date: 06/06/21 Status: Ordered Start: 06-06-2021 EpiPen 2-Eze 0 .3 mg injectable kit Dose : 0.3 mg = 1 kit, Intramuscular, AsDirected, PRN Allergic reaction, dispense one 2 pack auto injector kit, # 1 kit(s), 1 Refill(s), Pharmacy: [facility]/pharmacy #4605, 170, cm, 06/06/21 10:07:00 EST, Height, [...] BID, # 60 tab(s), 0 Refill(s), Pharmacy: [facility]/pharmacy #4605, 171.2, cm, 07/12/23 13:03:00 EDT, Height, [...] MILK., # 30 tab(s), 0 Refill(s), Pharmacy: [facility], 170.2, cm, 11/20/22 9:24:00 EDT, Height, kg, [...] th twice daily. TAKE ONE TABLET BY [facility] TWO TIMES A DAY TAKE 1 [...] 0 Refill(s), 06/21/24 12:09:00 PM EST, Pharmacy: [facility]/pharmacy #4605, 168.5, cm, 06/16/24 11:33:00 EST, Height, [...] Start: 10-31-2019 take 1 capsule by mo [facility] once daily Nitrofurantoin Monohyd Macro 100 [...] qDay, # 90 tab(s), 3 Refill(s), Pharmacy: [facility]/pharmacy #4605, 171.2, cm, 07/12/23 13:03:00 EDT, Height, [...] 0 Refill(s), 06/18/24 12:12:00 PM EST, Pharmacy: [facility]/pharmacy #4605, 168.5, cm, 06/16/24 11:33:00 EST, Height, kg, 06/16/24 11:33:00 EST, Dosing Weight Start Date: 06/16/24 Stop Date: 06/18/24 Status: Ordered Quantity: 6.0 Unit: tab(s) Repeat number: 1 polyethylene glycol 3350 407191 mg / potassium chloride 2970 mg / sodium bicarbonate 6740 mg / sodium chloride 5860 mg / sodium sulfate 58175 mg powder for oral solution (1 source) [...] day(s), # 10 tab(s), 0 Refill(s), Pharmacy: [facility]/pharmacy #4605, 168.5, cm, 06/16/24 11:33:00 EST, Height, [...] Comment on above: Take by mouth. 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; Other female genital disorders (1 [...] current use of drug therapy; Translations: [Other termite treater (current) drug therapy] Onset: 4 05-28-2023 Episodic Other aftercare (1 source) long term care pharmacist (current) use of anticoagulants; Translations: [long term care pharmacist current use of anticoagulant] Onset: 5 Episodic [...] Basophils (Bld) [#/Vol] 0.11 10*3/uL High <0.11 [facility] Comment on above: Order Comment: Speci men Type: BLOOD SPECIMENOrdering Facility: [facility] Address: [address] [place] [address] Performed By: #### 5 7021-8 ####[facility] STEPHIETOWNCLIA [id number] [place] [address] [place] Basophils/100 WBC (Bld) 1.4 % Normal [facility] Comment on above: Order Comment: Speci men Type: BLOOD SPECIMENOrdering Facility: [facility] Address: [address] [place] [address] Performed By: #### 5 7021-8 ####[facility] MILLWNCLIA [id number] [place] [address] [place] Differential cell count method Nom (Bld) Auto Normal [facility] Comment on above: Order Comment: Speci men Type: BLOOD SPECIMENOrdering Facility: [facility] Address: [address] [place] [address] Performed By: #### 5 7021-8 ####[facility] MILLWNCLIA [id number] [place] [address] [place] Eosinophils (Bld) [#/Vol] 0.74 10*3/uL High <0.46 [facility] Comment on above: Order Comment: Speci men Type: BLOOD SPECIMENOrdering Facility: [facility] Address: [address] [place] [address] Performed By: #### 5 7021-8 ####[facility] MILLTOWNCLIA [id number] [place] [address] [place] Eosinophils/100 WBC (Bld) 9.1 % Normal [facility] Comment on above: Order Comment: Speci men Type: BLOOD SPECIMENOrdering Facility: [facility] Address: [address] [place] [address] Performed By: #### 5 7021-8 ####[facility] MILLTOWNCLIA [id number] [place] [address] [place] Erythrocyte distribution width (RBC) [Ratio] 15.1 % High 11.5-15.0 [facility] Comment on above: Order Comment: Speci men Type: BLOOD SPECIMENOrdering Facility: [facility] Address: [address] [place] [address] Performed By: #### 5 7021-8 ####[facility] HOSPITALERNESTINALuciano [id number] [place] [address] [place] Hematocrit (Bld) [Volume fraction] 34.5 % Low 36.0-46.0 [facility] Comment on above: Order Comment: Speci men Type: BLOOD SPECIMENOrdering Facility: [facility] Address: [address] [place] [address] Performed By: #### 5 7021-8 ####[facility] M[facility]AR [id number] [place] [address] [place] Hemoglobin (Bld) [Mass/Vol] 11.4 g/dL Low 11.5-15.5 [facility] Comment on above: Order Comment: Speci men Type: BLOOD SPECIMENOrdering Facility: [facility] Address: [address] [place] [address] Performed By: #### 5 7021-8 ####[facility] HOSPITALSCOTTY [id number] [place] [address] [place] Immature granulocytes (Bld) [#/Vol] 10*3/uL Normal <0.10 [facility] Comment on above: Order Comment: Speci men Type: BLOOD SPECIMENOrdering Facility: [facility] Address: [address] [place] [address] Performed By: #### 5 7021-8 ####[facility] HOSPITALNCLIA [id number] [place] [address] [place] Immature granulocytes/100 WBC (Bld) 0.2 % Normal [facility] Comment on above: Order Comment: Speci men Type: BLOOD SPECIMENOrdering Facility: [facility] Address: [address] [place] [address] Performed By: #### 5 7021-8 ####[facility] [id number] [place] [address] [place] Lymphocytes (Bld) [#/Vol] 1.88 10*3/uL Normal 1.00-4.00 [facility] Comment on above: Order Comment: Speci men Type: BLOOD SPECIMENOrdering Facility: [facility] Address: [address] [place] [address] Performed By: #### 5 7021-8 ####[facility] [id number] [place] [address] [place] Lymphocytes/100 WBC (Bld) 23.2 % Normal [facility] Comment on above: Order Comment: Speci men Type: BLOOD SPECIMENOrdering Facility: [facility] Address: [address] [place] [address] Performed By: #### 5 7021-8 ####[facility] [id number] [place] [address] [place] MCH (RBC) [Entitic mass] 29.2 pg Normal 26.0-34.0 [facility] Comment on above: Order Comment: Speci men Type: BLOOD SPECIMENOrdering Facility: [facility] Address: [address] [place] [address] Performed By: #### 5 7021-8 ####[facility] [id number] [place] [address] [place] MCHC (RBC) [Mass/Vol] 33.0 g/dL Normal 30.5-36.0 [facility] Comment on above: Order Comment: Speci men Type: BLOOD SPECIMENOrdering Facility: [facility] Address: [address] [place] [address] Performed By: #### 5 7021-8 ####[facility] STEPHIEIDANCSCOTTYA [id number] [place] [address] [place] [facility] MCV (RBC) [Entitic vol] 88.5 fL Normal 80.0-100.0 [facility] Comment on above: Order Comment: Speci men Type: BLOOD SPECIMENOrdering Facility: [facility] Address: [address] [place] [address] Performed By: #### 5 7021-8 ####[facility] HOSPITALNCLuciano [id number] [place] [address] [place] Monocytes (Bld) [#/Vol] 0.82 10*3/uL Normal <0.87 [facility] Comment on above: Order Comment: Speci men Type: BLOOD SPECIMENOrdering Facility: [facility] Address: [address] [place] [address] Performed By: #### 5 7021-8 ####[facility] HOSPITALNCA [id number] [place] [address] [place] Monocytes/100 WBC (Bld) 10.1 % Normal [facility] Comment on above: Order Comment: Speci men Type: BLOOD SPECIMENOrdering Facility: [facility] Address: [address] [place] [address] Performed By: #### 5 7021-8 ####[facility] HOSPITALNCLIA [id number] [place] [address] [place] Neutrophils (Bld) [#/Vol] 4.54 10*3/uL Normal 1.45-7.50 [facility] Comment on above: Order Comment: Speci men Type: BLOOD SPECIMENOrdering Facility: [facility] Address: [address] [place] [address] Performed By: #### 5 7021-8 ####[facility] HOSPITALNCLIA [id number] [place] [address] [place] Neutrophils/100 WBC (Bld) 56.0 % Normal [facility] Comment on above: Order Comment: Speci men Type: BLOOD SPECIMENOrdering Facility: [facility] Address: [address] [place] [address] Performed By: #### 5 7021-8 ####[facility] STEPHIEIDAROSEY [id number] [place] [address] [place] Nucleated RBC (Bld) [#/Vol] 10*3/uL Normal <0.01 [facility] Comment on above: Order Comment: Speci men Type: BLOOD SPECIMENOrdering Facility: [facility] Address: [address] [place] [address] Performed By: #### 5 7021-8 ####[facility] [id number] [place] [address] [place] Nucleated RBC/100 WBC (Bld) [Ratio] 0.0 /100 WBC Normal [facility] Comment on above: Order Comment: Speci men Type: BLOOD SPECIMENOrdering Facility: [facility] Address: [address] [place] [address] Performed By: #### 5 7021-8 ####[facility]OSPITALDOC [id number] [place] [address] [place] Platelet mean volume (Bld) [Entitic vol] 10.5 fL Normal 9.0-12.7 [facility] Comment on above: Order Comment: Speci men Type: BLOOD SPECIMENOrdering Facility: [facility] Address: [address] [place] [address] Performed By: #### 5 7021-8 ####[facility] HOSPITALNCLIA [id number] [place] [address] [place] Platelets (Bld) [#/Vol] 248 10*3/uL Normal 150-400 [facility] Comment on above: Order Comment: Speci men Type: BLOOD SPECIMENOrdering Facility: [facility] Address: [address] [place] [address] Performed By: #### 5 7021-8 ####[facility] HOSPITALNCLIA [id number] [place] [address] [place] RBC (Bld) [#/Vol] 3.90 10*6/uL Normal 3.90-5.20 [facility] Comment on above: Order Comment: Speci men Type: BLOOD SPECIMENOrdering Facility: [facility] Address: [address] [place] [address] Performed By: #### 5 7021-8 ####[facility] HOSPITALNCA [id number] [place] [address] [place] WBC (Bld) [#/Vol] 8.11 10*3/uL Normal 3.70-11.00 [facility] Comment on above: Order Comment: Speci men Type: BLOOD SPECIMENOrdering Facility: [facility] Address: [address] [place] [address] Performed By: #### 5 7021-8 ####[facility] HOSPITALNCLIA [id number] [place] [address] [place] Ferritin SerPl-mCncon 2024 Ferritin [Mass/Vol] 134.0 ng/mL Normal 14.7-205.1 [facility] Comment on above: Order Comment: Speci men Type: BLOOD SPECIMENOrdering Facility: [facility] Address: [address] [place] [address] Performed By: #### 5 0190-8, 2276-4 ####[facility] LABCLIA [id number] [place] [address] [place] Iron and Iron binding capaci ty panelon 02-05-2025 Iron [Mass/Vol] 73 ug/dL Normal 41-186 [facility] Comment on above: Order Comment: Speci men Type: BLOOD SPECIMENOrdering Facility: [facility] Address: [address] [place] [address] Performed By: #### 5 0190-8, 6-4 ####[facility] LABCLIA [id number] [place] [id number] [place] Iron binding capacity [Mass/Vol] 278 ug/dL Normal 232-386 [facility] Comment on above: Order Comment: Speci men Type: BLOOD SPECIMENOrdering Facility: [facility] Address: [address] [place] [address] Performed By: #### 5 0190-8, 2275-4 ####[facility] LABIA [id number] [place] [id number] [place] Iron/TIBC [Molar ratio] 26.3 % Normal 15.0-57.0 [facility] Comment on above: Order Comment: Speci men Type: BLOOD SPECIMENOrdering Facility: [facility] Address: [address] [place] [address] Performed By: #### 5 0190-8, 2275-4 ####[facility] LABIA [id number] [place] [address] [place] .GFRon 01-30-2025 Estimated Glomerular Filtration Rate 82 ml/min/1.73sqm Normal [facility] Comment on above: Result Comment: Stages of [...] MP, TSH, FT4, GFR, FT3, VIDH #### [place] [address] #### PTH #### [address] [address] BMPon 01-30-2025 BUN/Creatinine Ratio 27 ratio Normal 7-27 [facility] Comment on above: Performed By: #### B MP, TSH, FT4, GFR, FT3, VIDH #### [place] [address] #### PTH #### [place] [address] Calcium [Mass/Vol] 9.7 mg/dL Normal 8.4-10.2 [facility] Comment on above: Performed By: #### B MP, TSH, FT4, GFR, FT3, VIDH #### [place] [address] #### PTH #### [address] [address] Chloride [Moles/Vol] 107 mmol/L Normal 98-107 [facility] Comment on above: Performed By: #### B MP, TSH, FT4, GFR, FT3, VIDH #### [place] [address] #### PTH #### [place] [address] CO2 [Moles/Vol] 32 mmol/L High 23-31 [facility] Comment on above: Performed By: #### B MP, TSH, FT4, GFR, FT3, VIDH #### [place] [address] #### PTH #### [address] [address] Creatinine [Mass/Vol] 0.79 mg/dL Normal 0.51-0.95 [facility] Comment on above: Performed By: #### B MP, TSH, FT4, GFR, FT3, VIDH #### [address] [address] #### PTH #### [address] [address] Electrolyte Balance 5.0 mEq/L Normal 4.0-15.0 [facility] Comment on above: Performed By: #### B MP, TSH, FT4, GFR, FT3, VIDH #### [place] [address] #### PTH #### [address] [address] Glucose [Mass/Vol] 94 mg/dL Normal 80-115 [facility] Comment on above: Performed By: #### B MP, TSH, FT4, GFR, FT3, VIDH #### [address] [address] #### PTH #### [address] [address] Potassium [Moles/Vol] 5.1 mmol/L Normal 3.5-5.1 [facility] Comment on above: Performed By: #### B MP, TSH, FT4, GFR, FT3, VIDH #### [address] [address] #### PTH #### [address] [address] Sodium [Moles/Vol] 144 mmol/L Normal 136-145 [facility] Comment on above: Performed By: #### B MP, TSH, FT4, GFR, FT3, VIDH #### [address] [address] #### PTH #### [address] [address] Urea nitrogen [Mass/Vol] 21 mg/dL High 7-18 [facility] Comment on above: Performed By: #### B MP, TSH, FT4, GFR, FT3, VIDH #### [place] [address] #### PTH #### [place] [address] FT3on 01-30-2025 Free T3 [Mass/Vol] 3.62 pg/mL Normal 2.30-4.00 [facility] Comment on above: Performed By: #### B MP, TSH, FT4, GFR, FT3, VIDH #### [address] [address] #### PTH #### [place] [address] FT4on 01-30-2025 Free T4 [Mass/Vol] 1.14 ng/dL Normal 0.76-1.46 [facility] Comment on above: Performed By: #### B MP, TSH, FT4, GFR, FT3, VIDH #### [address] [address] #### PTH #### [place] [address] LABORATORYOrdered By: SYSTEM SYSTEM on 01-30-2025 25-hydroxyvitamin [...] 01-30-2025 PTH, Intact 89.6 pg/mL High 18.5-88.0 [facility] Comment on above: Performed By: #### B MP, TSH, FT4, GFR, FT3, VIDH #### [facility] [address] [place], [place] [address] #### PTH #### [facility] [address] [place] [address] TSHon 01-30-2025 TSH Qn 0.09 m[IU]/L Low 0.36-3.74 [facility] Comment on above: Performed By: #### B MP, TSH, FT4, GFR, FT3, VIDH #### [place] [address] [place], [place] [address] #### PTH #### [address] [address] VIDHon 01-30-2025 Vit. D 25-Hydroxy 51.3 ng/mL Normal [facility] Comment on above: Result Comment: Inte rpretive Values Based on Total 25(OH) Vitamin D: Deficient <20 ng/mL Insufficient 20 - <30 ng/mL Sufficient 30-100 ng/mL Performed By: #### B MP, TSH, FT4, GFR, FT3, VIDH #### [address] [address] #### PTH #### [address] [address] ECHOon 01-23-2025 Echocardiography Echocardiography Rep ort: Transthoracic Echo [facility] Date of service: 01/23/2025 12:51:12 [facility] Ordering physician: CHI ZAMORA Exam indication: S/P [...] * * * Final * * * [employer] Image : [id number] Normal [facility] .Auto Diffon 01-16-2025 Basophil, Absolute 0.1 10 3/mcL Normal 0.0-0.3 [facility] Comment on above: Performed By: #### T [facility] #### [address] [address] Basophils/100 WBC (Bld) 1.8 % Normal 0.0-2.5 [facility] Comment on above: Performed By: #### T [facility] #### [address] [address] Eosinophil, Absolute 0.3 10 3/mcL Normal 0.0-0.7 [facility] Comment on above: Performed By: #### T DB #### [address] [address] Eosinophils/100 WBC (Bld) 5.9 % Normal 0.0-6.0 [facility] Comment on above: Performed By: #### T DB #### [address] [address] Lymphocyte, Absolute 1.1 10 3/mcL Normal 0.9-4.3 [facility] Comment on above: Performed By: #### T YOCASTA #### [address] [address] Lymphocytes/100 WBC (Bld) 20.7 % Normal 20.0-40.0 [facility] Comment on above: Performed By: #### T YOCASTA #### [address] [address] Monocyte, Absolute 0.6 10 3/mcL Normal 0.1-1.4 [facility] Comment on above: Performed By: #### T YOCASTA #### [address] [address] Monocytes/100 WBC (Bld) 12.6 % Normal 2.0-13.0 [facility] Comment on above: Performed By: #### T YOCASTA #### [address] [address] Neutrophils/100 WBC (Bld) 59.0 % Normal 50.0-75.0 [facility] Comment on above: Performed By: #### T YOCASTA #### [address] [address] .GFRon 01-16-2025 Estimated Glomerular Filtration Rate 82 ml/min/1.73sqm Normal [facility] Comment on above: Result Comment: Stages of [...] results. Performed By: #### T ROPEMMIE #### [address] [address] .NEUABSon 01-16-2025 Neutrophil, Absolute 3.0 10 3/mcL Normal 2.3-8.1 [facility] Comment on above: Performed By: #### T ROP #### [address] [address] A1Con 01-16-2025 Glucose [Mass/Vol] 120 mg/dL Normal [facility] Comment on above: Result Comment: Valarie mated Average Glucose calculated by equation ((28.7xA1C)-46.7) Estimated average glucose (eAG) is a calculated value from Hemoglobin A1C and is collections representative of the average blood glucose level in the last 2-3 month period. Normal range: less than 114 mg/dL Performed By: #### B MP, TSH, FT4, GFR, FT3, VIDH #### [address] [address] #### PTH #### [place] [address] HbA1c (Bld) [Mass fraction] 5.8 % Normal 4.3-6.4 [facility] Comment on above: Performed By: #### B MP, TSH, FT4, GFR, FT3, VIDH #### [place] [address] #### PTH #### [place] [address] CBCon 01-16-2025 Erythrocyte distribution width (RBC) [Ratio] 15.0 % Normal 11.5-15.5 [facility] Comment on above: Performed By: #### C BC, ADIFF, ANEU, FERR, MG, TSH, FT4, RFP, HFP, GFR, LIPID, VIDH, A1C #### [place] [address] #### PTH #### [place] [address] Hematocrit (Bld) [Volume fraction] 35.7 % Normal 34.0-46.0 [facility] Comment on above: Performed By: #### C BC, ADIFF, ANEU, FERR, MG, TSH, FT4, RFP, HFP, GFR, LIPID, VIDH, A1C #### [place] [address] #### PTH #### [place] [address] Hgb 11.9 G/dL Low 12.0-16.0 [facility] Comment on above: Performed By: #### C BC, ADIFF, ANEU, FERR, MG, TSH, FT4, RFP, HFP, GFR, LIPID, VIDH, A1C #### [place] [address] #### PTH #### [place] [address] MCH (RBC) [Entitic mass] 29.5 pg Normal 27.0-33.0 [facility] Comment on above: Performed By: #### C BC, ADIFF, ANEU, FERR, MG, TSH, FT4, RFP, HFP, GFR, LIPID, VIDH, A1C #### [place] [address] #### PTH #### [place] [address] MCHC 33.5 G/dL Normal 32.0-36.0 [facility] Comment on above: Performed By: #### C BC, ADIFF, ANEU, FERR, MG, TSH, FT4, RFP, HFP, GFR, LIPID, VIDH, A1C #### [place] [address] #### PTH #### [place] [address] MCV (RBC) [Entitic vol] 88.1 fL Normal 80.0-99.0 [facility] Comment on above: Performed By: #### C BC, ADIFF, ANEU, FERR, MG, TSH, FT4, RFP, HFP, GFR, LIPID, VIDH, A1C #### [place] [address] #### PTH #### [place] [address] Platelet 220 10 3/mcL Normal 150-450 [facility] Comment on above: Performed By: #### C BC, ADIFF, ANEU, FERR, MG, TSH, FT4, RFP, HFP, GFR, LIPID, VIDH, A1C #### [place] [address] #### PTH #### [place] [address] Platelet mean volume (Bld) [Entitic vol] 9.4 fL Normal 6.6-10.5 [facility] Comment on above: Performed By: #### C BC, ADIFF, ANEU, FERR, MG, TSH, FT4, RFP, HFP, GFR, LIPID, VIDH, A1C #### [place] [address] #### PTH #### [place] [address] RBC 4.05 10 6/mcL Low 4.10-5.30 [facility] Comment on above: Performed By: #### C BC, ADIFF, ANEU, FERR, MG, TSH, FT4, RFP, HFP, GFR, LIPID, VIDH, A1C #### [place] [address] #### PTH #### [place] [address] WBC 5.1 10 3/mcL Normal 4.5-10.8 [facility] Comment on above: Performed By: #### C BC, ADIFF, ANEU, FERR, MG, TSH, FT4, RFP, HFP, GFR, LIPID, VIDH, A1C #### [place] [address] #### PTH #### [place] [address] Alvin 01-16-2025 Ferritin [Mass/Vol] 121.0 ng/mL Normal 8.0-252.0 [facility] Comment on above: Performed By: #### T ROPHS #### [place] [address] FT4on 01-16-2025 Free T4 [Mass/Vol] 1.16 ng/dL Normal 0.76-1.46 [facility] Comment on above: Performed By: #### T YOCASTA #### [address] [address] [facility] Bili Indirect 0.5 mg/dL Normal [facility] Comment on above: Performed By: #### T YOCASTA #### [place] [address] Albumin/Globulin [Mass ratio] 1.1 {ratio} Normal 1.1-2.5 [facility] Comment on above: Performed By: #### T YOCASTA #### [place] [address] ALP [Catalytic activity/Vol] 56 U/L Normal 40-135 [facility] Comment on above: Performed By: #### T YOCASTA #### [place] [address] ALT [Catalytic activity/Vol] 17 U/L Normal 14-59 [facility] Comment on above: Performed By: #### T YOCASTA #### [place] [address] AST [Catalytic activity/Vol] 21 U/L Normal 10-40 [facility] Comment on above: Performed By: #### T YOCASTA #### [place] [address] Bili Direct 0.2 mg/dL Normal 0.0-0.2 [facility] Comment on above: Result Comment: Use of this assay is not recommended for patients undergoing treatment with eltrombopag due to the potential for falsely elevated results. Performed By: #### T YOCASTA #### [place] [address] Bili Total 0.7 mg/dL Normal 0.2-1.0 [facility] Comment on above: Result Comment: Use of this assay is not recommended for patients undergoing treatment with eltrombopag due to the potential for falsely elevated results. Performed By: #### T YOCASTA #### [address] [address] Globulin 3.6 G/dL Normal 2.7-4.4 [facility] Comment on above: Performed By: #### T YOCASTA #### [place] [address] [place], [place] [address] Total Protein 7.5 G/dL Normal 6.4-8.2 [facility] Comment on above: Performed By: #### T YOCASTA #### [address] [address] LABORATORYOrdered By: SYSTEM SYSTEM on 01-16-2025 25-hydroxyvitamin [...] calculated value from Hemoglobin A1C and is collections representative of the average blood glucose level [...] 01-16-2025 Cholesterol [Mass/Vol] 205 mg/dL High 0-200 [facility] Comment on above: Result Comment: Chol esterol Reference Interval: Less than 200 Desirable 200-239 Borderline high risk 240 and above High risk Performed By: #### T YOCASTA #### [place] [address] [place], [place] [address] Cholesterol in HDL [Mass/Vol] 76 mg/dL High 40-60 [facility] Comment on above: Performed By: #### T YOCASTA #### [address] [address] Cholesterol in LDL [Mass/Vol] 121 mg/dL Normal 0-130 [facility] Comment on above: Performed By: #### T YOCASTA #### [address] [address] Triglyceride [Mass/Vol] 42 mg/dL Normal 0-150 [facility] Comment on above: Result Comment: Trig lyceride Reference Interval: Less than 150 Normal 150-199 Borderline high risk 200-499 High risk 500 or higher Very high risk Performed By: #### T YOCASTA #### [address] [address] Laboratory - Chemistry and C hemistry - challengeOrdered By: SYSTEM SYSTEM on 01-16-2025 Albumin BCP dye [Mass/Vol] 3.9 G/dL Normal 3.4 - 4.8 G/dL AO ADM SS MGon 01-16-2025 Magnesium [Mass/Vol] 1.9 mg/dL Normal 1.8-2.4 [facility] Comment on above: Performed By: #### T YOCASTA #### [address] [address] PTHon 01-16-2025 PTH, Intact 78.8 pg/mL Normal 18.5-88.0 [facility] Comment on above: Performed By: #### B MP, TSH, FT4, GFR, FT3, VIDH #### [address] [address] #### PTH #### [facility] [address] [place] [address] RFPon 01-16-2025 Albumin Level 3.9 G/dL Normal 3.4-4.8 [facility] Comment on above: Performed By: #### T YOCASTA #### [address] [address] BUN/Creatinine Ratio 16 ratio Normal 7-27 [facility] Comment on above: Performed By: #### T YOCASTA #### [address] [address] Calcium [Mass/Vol] 9.5 mg/dL Normal 8.4-10.2 [facility] Comment on above: Performed By: #### T YOCASTA #### [address] [address] Chloride [Moles/Vol] 105 mmol/L Normal 98-107 [facility] Comment on above: Performed By: #### T YOCASTA #### [address] [address] CO2 [Moles/Vol] 32 mmol/L High 23-31 [facility] Comment on above: Performed By: #### T YOCASTA #### [address] [address] Creatinine [Mass/Vol] 0.79 mg/dL Normal 0.51-0.95 [facility] Comment on above: Performed By: #### T YOCASTA #### [address] [address] Electrolyte Balance 6.0 mEq/L Normal 4.0-15.0 [facility] Comment on above: Performed By: #### T YOCASTA #### [address] [address] Glucose [Mass/Vol] 84 mg/dL Normal 80-115 [facility] Comment on above: Performed By: #### T YOCASTA #### [address] [address] Phosphate [Mass/Vol] 3.8 mg/dL Normal 2.3-4.1 [facility] Comment on above: Performed By: #### T YOCASTA #### [address] [address] Potassium [Moles/Vol] 4.6 mmol/L Normal 3.5-5.1 [facility] Comment on above: Performed By: #### T YOCASTA #### [address] [address] Sodium [Moles/Vol] 143 mmol/L Normal 136-145 [facility] Comment on above: Performed By: #### T DB #### [place] [address] [place], [place] [address] Urea nitrogen [Mass/Vol] 13 mg/dL Normal 7-18 [facility] Comment on above: Performed By: #### T DB #### [place] [address] [place], [place] [address] TSHon 01-16-2025 TSH Qn 0.04 m[IU]/L Low 0.36-3.74 [facility] Comment on above: Performed By: #### T DB #### [address] [address] VIDHon 01-16-2025 Vit. D 25-Hydroxy 52.8 ng/mL Normal [facility] Comment on above: Result Comment: Inte rpretive Values Based on Total 25(OH) Vitamin D: Deficient <20 ng/mL Insufficient 20 - <30 ng/mL Sufficient 30-100 ng/mL Performed By: #### B MP, TSH, FT4, GFR, FT3, VIDH #### [address] [address] #### PTH #### [place] [address] CNOVon 12-19-2024 CNOV Office Visit (DINORAH ) BELLA MORILLO ([id number]) 1955 F Date Time Provider Department 12/19/24 [...] which included preparing to see the patient, [id number] patient care, completing clinical documentation, obtaining and/or [...] of total knee replacement, subsequent encounter [T84.018D, Z96.719] Prescriptions as of 12/19/2024 - apixaban (ELIQUIS) [...] Cataract [H26.9] (more content not included)... Normal [facility] Bacteria Fld Culton 12-16-19 25 Bacteria identified Cx Nom (Body fld) CULTURE, BODY FLD: No growth GRAM STAIN: No organisms seen Rare Polymorphonuclear leukocytes Gram stain from primary specimen Normal [facility] Comment on above: Performed By: #### 6 11-4 ####[facility] LABCLIA [id number] [address] [place] Guidance for injection of Kn eeon 12-15-2024 IMPRESSION: Left kne e fluid aspiration as detailed [employer] Manager: PSCB Transcribe Date/Time: Dec 15 2024 3:35P Dictated by : CEDRIC KRAUSE MD This examination was interpreted and the report reviewed and electronically signed by: CEDRIC KRAUSE MD on Dec 15 2024 3:36PM [facility] RADIOLOG[facility] * * *Final Report* * * [...] mL of clear orange-colored fluid was aspirated. [facility] Provider, Gayle Hernandez - 12/15/2024 * [...] IMPRESSION: Left knee fluid aspiration as detailed [employer]: PSCB Transcribe Date/Time: Dec 15 2024 3:35P Dictated by : CEDRIC KRAUSE MD This examination was interpreted and the report reviewed and electronically signed by: CEDRIC KRAUSE MD on Dec 15 2024 3:36PM EST [facility] Radiology Study observation (narrative) [facility] Guidance for injection of Kn eeOrdered By: Ccf Provider on 12-15-2024 [facility] SYNOVIAL FLUID MANUAL DIFFon 12-15-2024 DIF TTL, SYNOVIAL FLUID 100 cells counted Normal [facility] Comment on above: Order Comment: Speci men Type: FLUID SPECIMENOrdering Facility: [facility] Address: [address] [place] [place] [id number] Performed By: #### L [id number], RTSYNF ####[facility] LABORATORYCLIA [id number] [place] [address] [place]#### SFCRID ####[facility] LABORATORYCLIA [id number] [place] [address] [place] [facility] LABCLIA [id number] [facility]ENTERK [address] [place] [address] [place] LYMPH%, SF 15 Normal [facility] Comment on above: Order Comment: Speci men Type: FLUID SPECIMENOrdering Facility: [facility] Address: [address] [place], [place] [address] Performed By: #### L [id number], RTSYNF ####[facility] LABORATORYCLIA [id number] [place] [address] [place]#### SFCRID ####[facility] LABORATORYCLIA [id number] [place] [address] [place] [facility] LABCLIA [id number] [facility] [address] [place] [address] [place] MACRO%, SF 14 Normal [facility] Comment on above: Order Comment: Speci men Type: FLUID SPECIMENOrdering Facility: [facility] Address: [address] [place], [place] [address] Performed By: #### L [id number], RTSYNF ####[facility] LABORATORYCLIA [id number] [place] [address] [place]#### SFCRID ####[facility] LABORATORYCLIA [id number] [place] [address] [place] [facility] LABCLIA [id number] [facility] [address] [place] [address] [place] MONO%, SF 1 Normal [facility] Comment on above: Order Comment: Speci men Type: FLUID SPECIMENOrdering Facility: [facility] Address: [address] [place], [place] [address] Performed By: #### L [id number], RTSYNF ####[facility] LABORATORYCLIA [id number] [place] [address] [place]#### SFCRID ####[facility] LABORATORYCLIA [id number] [place], [place] [id number] [place] [address] LABCLIA [id number] [place] [address] [place] NEUT% 70 High 0-<25 [facility] Comment on above: Order Comment: Speci men Type: FLUID SPECIMENOrdering Facility: [facility] Address: [address] [place] [address] Performed By: #### L [id number], RTSYNF ####[facility] LABORATORYCLIA [id number] [place] [address] [place]#### SFCRID ####[facility] LABORATORYCLIA [id number] [address] LABCLIA [id number] [place] [address] [place] SYNOVIAL FLUID, CRYSTAL ID/P ATHOLOGIST INTERPRETATIONon 12-15-2024 CRY[facility]AL PRELIM, SF PRELIMINARY REPORT N o diagnostic crystals seen. SEE FINAL SF PATH REVIEW Normal [facility] Comment on above: Order Comment: Speci men Type: FLUID SPECIMENOrdering Facility: [facility] Address: [address] [place] [address] Performed By: #### L [id number], RTSYNF ####[facility] LABORATORYCLIA [id number] [place] [address] [place]#### SFCRID ####[facility] LABORATORYCLIA [id number] [place] [id number] [facility] LABCLIA [id number] [place] [address] [place] CRYSTAL REVIEW Reviewed by Deepika Greene MD Normal [facility] Comment on above: Order Comment: Speci men Type: FLUID SPECIMENOrdering Facility: [facility] Address: [address] [place], [place] [address] Performed By: #### L [id number], RTSYNF ####[facility] LABORATORYCLIA [id number] [place] [address] [place]#### SFCRID ####[facility] LABORATORYCLIA [id number] [place] [address] [place] [facility] LABCLIA [id number] [place] [address] [place] Crystals LM Nom (Syn fld) None seen Normal None seen [facility] Comment on above: Order Comment: Speci men Type: FLUID SPECIMENOrdering Facility: [facility] Address: [address] [place] [address] Performed By: #### L [id number], RTSYNF ####[facility] LABORATORYCLIA [id number] [place] [address] [place]#### SFCRID ####[facility] LABORATORYCLIA [id number] [place] [address] [place] [facility] LABCLIA [id number] [place] [address] [place] SYNOVIAL FLUID, ROUTINEon Clarity (Unsp spec) Clear Normal Clear [facility] Comment on above: Order Comment: Speci men Type: FLUID SPECIMENOrdering Facility: [facility] Address: [address] [place] [address] Performed By: #### L [id number], RTSYNF ####[facility] LABORATORYCLIA [id number] [place] [address] [place]#### SFCRID ####[facility] LABORATORYCLIA [id number] [place] [address] [place] [facility] LABCLIA [id number] [place] [address] [place] Color (Syn fld) Yellow Normal Yellow [facility] Comment on above: Order Comment: Speci men Type: FLUID SPECIMENOrdering Facility: [facility] Address: [address] [place] [address] Performed By: #### L [id number], RTSYNF ####[facility] LABORATORYCLIA [id number] [place] [address] [place]#### SFCRID ####[facility] LABORATORYCLIA [id number] [place] [address] [place] [facility] LABCLIA [id number] [place] [address] [place] RBC Manual cnt (Syn fld) [#/Vol] 9000 /uL High <2000 [facility] Comment on above: Order Comment: Speci men Type: FLUID SPECIMENOrdering Facility: [facility] Address: [address] [place] [address] Performed By: #### L [id number], RTSYNF ####[facility] LABORATORYCLIA [id number] [address] [place]#### SFCRID ####[facility] LABORATORYCLIA [id number] [place], [place] [id number] [place] [address] LABCLIA [id number] [place] [address] [place] Specimen source Nom (Unsp spec) Knee, Left Normal [facility] Comment on above: Order Comment: Speci men Type: FLUID SPECIMENOrdering Facility: [facility] Address: [address] [place] [address] Performed By: #### L [id number], RTSYNF ####[facility] LABORATORYCLIA [id number] [place] [address] [place]#### SFCRID ####[facility] LABORATORYCLIA [id number] [address] LABCLIA [id number] [place] [id number] [place] WBC Manual cnt (Syn fld) [#/Vol] 964 /uL High 0-200 [facility] Comment on above: Order Comment: Speci men Type: FLUID SPECIMENOrdering Facility: [facility] Address: [address] [place] [address] Performed By: #### L [id number], RTSYNF ####[facility] LABORATORYCLIA [id number] [place] [address] [facility]#### SFCRID ####[facility] LABORATORYCLIA [id number] [place] [address] [facility] LABCLIA [id number] [place] [id number] [facility] XR KNEE ASPIRATION LTon 11-25 XR KNEE [...] IMPRESSION: Left knee fluid aspiration as detailed [employer] Manager: PSCB Transcribe Date/Time: Dec 15 2024 3:35P Dictated by : CEDRIC KRAUSE MD This examination was interpreted and the report reviewed and electronically signed by: CEDRIC KRAUSE MD on Dec 15 2024 3:36PM EST [id number] [facility] 12-01-2024 CNPN Telephone (ORMDNA) BELLA MORILLO ([id number]) 1955 F Date Time Provider Department 12/01/24 [...] leg [M25.562] Order(s):IMAGING GUIDED KNEE ASPIRATION LEFT [[id number]] Order #: [id number] FUTURE Prescriptions as of 12/06/2024 - apixaban [...] Hiatal hernia [K44.9] 10/08/2021 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 [Z*06/14/2023 Iron 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 *02/03/2024 Personal history of colon cancer [Z85.038] 08/03/2024 Atrial fibrillation (HCC) [I48.91] 09/22/2024 Unresponsive episode [R40.4] 09/22/2024 09/23/2024 Acute encephalopathy [G93.40] 09/22/2024 09/23/2024 Leukocytosis [D72.829] 09/22/2024 09/23/2024 Complication of anesthesia [T88.59XA] 09/23/2024 09/23/2024 Typical atrial flutter (HCC) [I48.3] 09/23/2024 Encounter Status:Closed by MARGARITA REYNOLDS on 12/06/24 Normal [facility] C-REACTIVE PROTEINon 025 CRP [Mass/Vol] mg/dL NINF - 0.9 mg/dL [facility] CNOVon 11-07-2024 CNOV Office Visit (DINORAH ) BELLA MORILLO ([id number]) 1955 F Date Time Provider Department 11/07/24 [...] active extension. -Did have aspirate postoperatively with [employer] results: -Neg CRP -Neg alpha defensin -479 [...] which included preparing to see the patient, [id number] patient care, completing clinical documentation, obtaining and/or [...] [M25.562] Order(s):SEDIMENTATION RATE, WESTERGREN [SQWSR] Order #: [id number] FUTURE C-REACTIVE PROTEIN [SQCRP] Order #: [id number] FUTURE US ASP/INJ KNEE JT/BURSA LEFT [[id number]] Order #: [id number] FUTURE BACTERIAL CULTURE AND GRAM STAIN, STERILE BODY FLUID [SQBFCUL] Order #: [id number] SYNOVIAL FLUID, ROUTINE [SQRTSYN] Order #: [id number] Prescriptions as of 11/07/2024 - apixaban (ELIQUIS) [...] mcg t (more content not included)... Normal [facility] CRP SerPl-mCncon 11-07-2024 CRP [Mass/Vol] mg/L Normal <0.9 [facility] Comment on above: Order Comment: Julieta boswell Type: BLOOD SPECIMEN Ordering Facility: [facility] Address: [address] [place] [address] Performed By: #### 1 988-5 #### [facility] CLIA [id number] [address] [place] [address] [place] CRP [Mass/Vol]on 11-07-2024 Interpretation and review of laboratory results Normal [facility] ESR Westergren method (Bld) [Velocity]on 11-07-2024 ESR (Bld) [Velocity] 8 mm/h [facility] Interpretation and review of laboratory results Normal [facility] ESR (Bld) [Velocity] 8 mm/h Normal 0-20 [facility] Comment on above: Order Comment: Julieta boswell Type: BLOOD SPECIMEN Ordering Facility: [facility] Address: [address] [place] [address] Performed By: #### 4 537-7 #### [facility] CLIA [id number] [address] [place] [address] [place] XR KNEE 3V AP/LAT/MERCHANT [...] Right TKA is noted. IMPRESSION: Stable TKA [employer] Sales Manager: ANGIE Transcribe Date/Time: Nov 12 2024 3:18P Dictated by : MECCA RODRIGUEZ MD This examination was interpreted and the report reviewed and electronically signed by: MECCA RODRIGUEZ MD on Nov 12 2024 3:20PM EST [id number] Normal [facility] CBC W Auto Differential pane l (Bld)on 11-06-2024 Basophils (Bld) [#/Vol] 0.09 10*3/uL Normal <0.11 [facility] Comment on above: Order Comment: Speci men Type: BLOOD SPECIMENOrdering Facility: [facility] Address: [address] [place] [address] Performed By: #### 5 7021-8 ####[facility] [id number] [place] [address] [place] Basophils/100 WBC (Bld) 1.5 % Normal [facility] Comment on above: Order Comment: Speci men Type: BLOOD SPECIMENOrdering Facility: [facility] Address: [address] [place] [address] Performed By: #### 5 7021-8 ####[facility] [id number] [place] [address] [place] Differential cell count method Nom (Bld) Auto Normal [facility] Comment on above: Order Comment: Speci men Type: BLOOD SPECIMENOrdering Facility: [facility] Address: [address] [place] [address] Performed By: #### 5 7021-8 ####[facility] [id number] [place] [address] [place] Eosinophils (Bld) [#/Vol] 0.58 10*3/uL High <0.46 [facility] Comment on above: Order Comment: Speci men Type: BLOOD SPECIMENOrdering Facility: [facility] Address: [address] [place], [place] [address] Performed By: #### 5 7021-8 ####[facility] MILLWNCLIA [id number] [place] [address] [place] Eosinophils/100 WBC (Bld) 9.6 % Normal [facility] Comment on above: Order Comment: Speci men Type: BLOOD SPECIMENOrdering Facility: [facility] Address: [address] [place] [address] Performed By: #### 5 7021-8 ####[facility]OSPITALERNESTINALIA [id number] [place] [address] [place] Erythrocyte distribution width (RBC) [Ratio] 13.7 % Normal 11.5-15.0 [facility] Comment on above: Order Comment: Speci men Type: BLOOD SPECIMENOrdering Facility: [facility] Address: [address] [place] [address] Performed By: #### 5 7021-8 ####[facility] [id number] [place] [address] [place] Hematocrit (Bld) [Volume fraction] 36.7 % Normal 36.0-46.0 [facility] Comment on above: Order Comment: Speci men Type: BLOOD SPECIMENOrdering Facility: [facility] Address: [address] [place] [address] Performed By: #### 5 7021-8 ####[facility]PITALNCLIA [id number] [place] [address] [place] Hemoglobin (Bld) [Mass/Vol] 11.9 g/dL Normal 11.5-15.5 [facility] Comment on above: Order Comment: Speci men Type: BLOOD SPECIMENOrdering Facility: [facility] Address: [address] [place] [address] Performed By: #### 5 7021-8 ####[facility]ITALNCLIA [id number] [place] [address] [place] Immature granulocytes (Bld) [#/Vol] 10*3/uL Normal <0.10 [facility] Comment on above: Order Comment: Speci men Type: BLOOD SPECIMENOrdering Facility: [facility] Address: [address] [place] [address] Performed By: #### 5 7021-8 ####[facility] [id number] [place] [address] [place] Immature granulocytes/100 WBC (Bld) 0.3 % Normal [facility] Comment on above: Order Comment: Speci men Type: BLOOD SPECIMENOrdering Facility: [facility] Address: [address] [place] [address] Performed By: #### 5 7021-8 ####[facility] HOSPITALNCLI [id number] [place] [address] [place] Lymphocytes (Bld) [#/Vol] 1.44 10*3/uL Normal 1.00-4.00 [facility] Comment on above: Order Comment: Speci men Type: BLOOD SPECIMENOrdering Facility: [facility] Address: [address] [place] [address] Performed By: #### 5 7021-8 ####[facility] [id number] [place] [address] [place] Lymphocytes/100 WBC (Bld) 23.8 % Normal [facility] Comment on above: Order Comment: Speci men Type: BLOOD SPECIMENOrdering Facility: [facility] Address: [address] [place] [address] Performed By: #### 5 7021-8 ####[facility] HOSPITALNCLI [id number] [place] [address] [place] MCH (RBC) [Entitic mass] 29.0 pg Normal 26.0-34.0 [facility] Comment on above: Order Comment: Speci men Type: BLOOD SPECIMENOrdering Facility: [facility] Address: [address] [place] [address] Performed By: #### 5 7021-8 ####[facility] MALINA [id number] [place] [address] [place] MCHC (RBC) [Mass/Vol] 32.4 g/dL Normal 30.5-36.0 [facility] Comment on above: Order Comment: Speci men Type: BLOOD SPECIMENOrdering Facility: [facility] Address: [address] [place], [place] [address] Performed By: #### 5 7021-8 ####[facility] HOSPITALROSEY [id number] [place] [address] [place] MCV (RBC) [Entitic vol] 89.3 fL Normal 80.0-100.0 [facility] Comment on above: Order Comment: Speci men Type: BLOOD SPECIMENOrdering Facility: [facility] Address: [address] [place] [address] Performed By: #### 5 7021-8 ####[facility] HOSPITALROSEY [id number] [place] [address] [place] Monocytes (Bld) [#/Vol] 0.69 10*3/uL Normal <0.87 [facility] Comment on above: Order Comment: Speci men Type: BLOOD SPECIMENOrdering Facility: [facility] Address: [address] [place] [address] Performed By: #### 5 7021-8 ####[facility]ITALNCLIA [id number] [place] [address] [place] Monocytes/100 WBC (Bld) 11.4 % Normal [facility] Comment on above: Order Comment: Speci men Type: BLOOD SPECIMENOrdering Facility: [facility] Address: [address] [place] [address] Performed By: #### 5 7021-8 ####[facility] MILLTOWNCLIA [id number] [place] [address] [place] Neutrophils (Bld) [#/Vol] 3.23 10*3/uL Normal 1.45-7.50 [facility] Comment on above: Order Comment: Speci men Type: BLOOD SPECIMENOrdering Facility: [facility] Address: [address] [place] [address] Performed By: #### 5 7021-8 ####[facility]ITALLIA [id number] [place] [address] [place] Neutrophils/100 WBC (Bld) 53.4 % Normal [facility] Comment on above: Order Comment: Speci men Type: BLOOD SPECIMENOrdering Facility: [facility] Address: [address] [place] [address] Performed By: #### 5 7021-8 ####[facility] [id number] [place] [address] [place] Nucleated RBC (Bld) [#/Vol] 10*3/uL Normal <0.01 [facility] Comment on above: Order Comment: Speci men Type: BLOOD SPECIMENOrdering Facility: [facility] Address: [address] [place] [address] Performed By: #### 5 7021-8 ####[facility] [id number] [place] [address] [place] Nucleated RBC/100 WBC (Bld) [Ratio] 0.0 /100 WBC Normal [facility] Comment on above: Order Comment: Speci men Type: BLOOD SPECIMENOrdering Facility: [facility] Address: [address] [place] [address] Performed By: #### 5 7021-8 ####[facility] HOSPITALNCLIA [id number] [place] [address] [place] Platelet mean volume (Bld) [Entitic vol] 10.5 fL Normal 9.0-12.7 [facility] Comment on above: Order Comment: Speci men Type: BLOOD SPECIMENOrdering Facility: [facility] Address: [address] [place] [address] Performed By: #### 5 7021-8 ####[facility]ITALNCLIA [id number] [place] [address] [place] Platelets (Bld) [#/Vol] 234 10*3/uL Normal 150-400 [facility] Comment on above: Order Comment: Speci men Type: BLOOD SPECIMENOrdering Facility: [facility] Address: [address] [place] [address] Performed By: #### 5 7021-8 ####[facility] H[facility]PITALNCLIA [id number] [place] [address] [place] RBC (Bld) [#/Vol] 4.11 10*6/uL Normal 3.90-5.20 [facility] Comment on above: Order Comment: Speci men Type: BLOOD SPECIMENOrdering Facility: [facility] Address: [address] [place] [address] Performed By: #### 5 7021-8 ####[facility]ITALNCLIA [id number] [place] [address] [place] WBC (Bld) [#/Vol] 6.05 10*3/uL Normal 3.70-11.00 [facility] Comment on above: Order Comment: Speci men Type: BLOOD SPECIMENOrdering Facility: [facility] Address: [address] [place] [address] Performed By: #### 5 7021-8 ####[facility] HOSPITALWNCLIA [id number] [place] [address] [place] Ferritin SerPl-mCncon 2024 Ferritin [Mass/Vol] 131.0 ng/mL Normal 14.7-205.1 [facility] Comment on above: Order Comment: Speci men Type: BLOOD SPECIMENOrdering Facility: [facility] Address: [address] [place] [address] Performed By: #### 2 276-4, 09521-9 ####[facility] LABCLIA [id number] [place] [id number] [place] Iron and Iron binding capaci ty panelon 11-06-2024 Iron [Mass/Vol] 47 ug/dL Normal 41-186 [facility] Comment on above: Order Comment: Speci men Type: BLOOD SPECIMENOrdering Facility: [facility] Address: [address] [place] [address] Performed By: #### 2 276-4, 04634-0 ####[facility] LABCLIA [id number] [address] [place] Iron binding capacity [Mass/Vol] 265 ug/dL Normal 232-386 [facility] Comment on above: Order Comment: Speci men Type: BLOOD SPECIMENOrdering Facility: [facility] Address: [address] [place] [address] Performed By: #### 2 276-4, 43937-4 ####[facility] LABIA [id number] [place] [id number] [place] Iron/TIBC [Molar ratio] 17.7 % Normal 15.0-57.0 [facility] Comment on above: Order Comment: Speci men Type: BLOOD SPECIMENOrdering Facility: [facility] Address: [address] [place] [address] Performed By: #### 2 276-4, 22325-8 ####[facility] LABCLIA [id number] [place] [id number] [place] CNCOon 10-26-2024 CNCO Letter Text Letter Text Normal [facility] CNPNon 10-11-2024 CNPN Telephone (AGCARDPOB ) BELLA MORILLO ([id number]) 1955 F Date Time Provider Department 10/11/24 [...] Other Visit Diagnosis:Dyspnea, unspecified type [R06.00] Order(s):ECHO [[id number]] Order #: [id number]: 1 FUTURE perflutren lipid microspheres 1.3 mL in NaCl (PF) 0.9% 10 mL injection (DEFINITY)Disp: Rfl: sodium chloride 0.9 % (flush) 10 mL (BD POSIFLUSH)Disp: Rfl: OUTSIDE VENDOR CARDIAC OUTPATIENT EXTENDED RHYTHM RECORDING (WITHOUT TELEMETRY) [[id number]] Order #: [id number]: 1 FUTURE OUTSIDE VENDOR CARDIAC OUTPATIENT EXTENDED RHYTHM RECORDING (WITHOUT TELEMETRY) [[id number]] Order #: [id number]: 1 Prescriptions as of 10/11/2024 - apixaban [...] Hiatal hernia [K44.9] 10/08/2021 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 [Z*06/14/2023 Iron [...] Encounter Status:Closed by CHI ZAMORA on 10/11/24 [facility] CNOVon 10-06-2024 CNOV Office Visit (DEMETRI CECILIA) BELLA MORILLO ([id number]) 1955 F Date Time Provider Department 10/06/24 11:00 AM [facility] ZAMORAHAGCARDPOB During your visit today, we recorded the following information about you: Pulse Blood pressure Weight 64/minute 121/73 68 kg Chi Zamora MD 10/06/2024 11:38 AM [facility] Vascular [place] [facility] SECTION OF CARDIAC PACING and ELECTROPHYSIOLOGY OUTPATIENT VISIT DATE October 06, 2024 OUTPATIENT VISIT TYPE ESTABLISHED PRIMARY CARE PHYSICIAN: Sridhar Montero IV [address] [place] [address] HISTORY OF PRESENT ILLNESS: rior history, edited as needed: 69 year female with history of PAF, s/p catheter ablation approximately 25 years ago and repeat radiofrequency ablation at [facility] in 2012, has been maintained on low-dose propafenone for symptomatic PACs, RSB1-DY7-ICKd score of 1 for gender only, not [...] attention. She is not on anticoagulation. Her KTN0-UX1-SQBq score is currently 2, for gender and [...] (68 k (more content not included)... Normal [facility] ECG B/O W INTERP (MED OFFICE )on 10-06-2024 Normal sinus rhythm at 62 bpm, MN 180, QRS 90, QTc 400 ms, normal axis. [facility] XR FEMUR MINIMUM 2 VIEWS LEF Ton [...] 10/01/2024 12:36:21 PM Ordering Provider: MARGARITA Wagner [facility] Basic metabolic 2000 panelon 09-23-2024 Anion gap [Moles/Vol] 11 mmol/L Normal 8-15 Akr on [facility] Comment on above: Order Comment: Speci men Type: BLOOD SPECIMENOrdering Facility: [facility] Address: [address] [place] [address] Performed By: #### 2 4321-2, 79408-6, 3024-7, 3051-0, 2777-1 ####[facility] LABORATORYCLIA [id number] [place] [address] [place] Calcium [Mass/Vol] 8.8 mg/dL Normal 8.5-10.2 [facility] Comment on above: Order Comment: Speci men Type: BLOOD SPECIMENOrdering Facility: [facility] Address: [address] [place] [address] Performed By: #### 2 4321-2, 02159-4, 3024-7, 3051-0, 2777-1 ####[facility] LABORATORYCLIA [id number] [place] [address] [place] Chloride [Moles/Vol] 102 mmol/L Normal 98-107 [facility] Comment on above: Order Comment: Speci men Type: BLOOD SPECIMENOrdering Facility: [facility] Address: [address] [place] [address] Performed By: #### 2 4321-2, 09324-6, 3024-7, 3051-0, 2777-1 ####[facility] LABORATORYCLIA [id number] [place] [address] [place] CO2 [Moles/Vol] 26 mmol/L Normal 22-30 [facility] Comment on above: Order Comment: Speci men Type: BLOOD SPECIMENOrdering Facility: [facility] Address: [address] [place] [address] Performed By: #### 2 4321-2, 07188-7, 3024-7, 3051-0, 2777-1 ####[facility] LABORATORYCLIA [id number] [place] [address] [place] Creatinine [Mass/Vol] 0.81 mg/dL Normal 0.58-0.96 [facility] Comment on above: Order Comment: Speci men Type: BLOOD SPECIMENOrdering Facility: [facility] Address: [address] [place] [address] Performed By: #### 2 4321-2, 42099-9, 3024-7, 3051-0, 2777-1 ####[facility] LABORATORYCLIA [id number] [place] [id number] [place] Creatinine and Glomerular filtration rate.predicted panel (S/P/Bld) 80 mL/min/1.73m??? Normal >=60 [facility] Comment on above: Order Comment: Julieta boswell Type: BLOOD SPECIMENOrdering Facility: [facility] Address: [address] [place] [address] Result Comment: Valarie mated Glomerular Filtration Rate [...] actual GFR. Performed By: #### 2 4321-2, 27415-8, 3024-7, 3051-0, 2777-1 ####[facility] LABORATORYCLIA [id number] [place] [address] [place] Glucose [Mass/Vol] 100 mg/dL High 74-99 [facility] Comment on above: Order Comment: Julieta boswell Type: BLOOD SPECIMENOrdering Facility: [facility] Address: [address] [place] [address] Result Comment: The [place] [employer] (ADA) provides guidance for cutoff [...] Standards of Medical Care in Diabetes 2016, [place] [employer]. Diabetes Care. 2016.39(Suppl 1). Performed By: #### 2 4321-2, 99333-3, 3024-7, 3051-0, 2777-1 ####[facility] LABORATORYCLIA [id number] [place] [address] [place] Potassium [Moles/Vol] 4.3 mmol/L Normal 3.7-5.1 [facility] Comment on above: Order Comment: Speci men Type: BLOOD SPECIMENOrdering Facility: [facility] Address: [address] [place] [address] Performed By: #### 2 4321-2, 78087-1, 3024-7, 3051-0, 2777-1 ####[facility] LABORATORYCLIA [id number] [address] STATES OF [facility] Sodium [Moles/Vol] 139 mmol/L Normal 136-144 [facility] Comment on above: Order Comment: Speci men Type: BLOOD SPECIMENOrdering Facility: [facility] Address: [address] [place] [address] Performed By: #### 2 4321-2, 54509-4, 3024-7, 3051-0, 277-1 ####[facility] LABORATORYCLIA [id number] [address] STATES OF [facility] Urea nitrogen [Mass/Vol] 15 mg/dL Normal 7-21 [facility] Comment on above: Order Comment: Speci men Type: BLOOD SPECIMENOrdering Facility: [facility] Address: [address] [place] [address] Performed By: #### 2 4321-2, 24370-4, 3024-7, 3051-0, 2777-1 ####[facility] LABORATORYCLIA [id number] [place] [address] [place] CBC panel Auto (Bld)on 09-23 Erythrocyte distribution width (RBC) [Ratio] 13.6 % Normal 11.5-15.0 [facility] Comment on above: Order Comment: Speci men Type: BLOOD SPECIMENOrdering Facility: [facility] Address: [address] [place] [address] Performed By: #### 5 8410-2 ####[facility] LABORATORYCLIA [id number] [address] Hematocrit (Bld) [Volume fraction] 34.1 % Low 36.0-46.0 [facility] Comment on above: Order Comment: Speci men Type: BLOOD SPECIMENOrdering Facility: [facility] Address: [address] [place] [address] Performed By: #### 5 8410-2 ####[facility] LABORATORYCLIA [id number] [address] OF [facility] Hemoglobin (Bld) [Mass/Vol] 11.0 g/dL Low 11.5-15.5 [facility] Comment on above: Order Comment: Speci men Type: BLOOD SPECIMENOrdering Facility: [facility] Address: [address] [place] [address] Performed By: #### 5 8410-2 ####[facility] LABORATORYCLIA [id number] [address] [place] OF [facility] MCH (RBC) [Entitic mass] 29.6 pg Normal 26.0-34.0 [facility] Comment on above: Order Comment: Speci men Type: BLOOD SPECIMENOrdering Facility: [facility] Address: [address] [place] [address] Performed By: #### 5 8410-2 ####[facility] LABORATORYCLIA [id number] [address] [place] MCHC (RBC) [Mass/Vol] 32.3 g/dL Normal 30.5-36.0 [facility] Comment on above: Order Comment: Speci men Type: BLOOD SPECIMENOrdering Facility: [facility] Address: [address] [place] [address] Performed By: #### 5 8410-2 ####[facility] LABORATORYCLIA [id number] [address] MCV (RBC) [Entitic vol] 91.7 fL Normal 80.0-100.0 [facility] Comment on above: Order Comment: Speci men Type: BLOOD SPECIMENOrdering Facility: [facility] Address: [address] [place] [address] Performed By: #### 5 8410-2 ####[facility] LABORATORYCLIA [id number] [address] [place] Nucleated RBC (Bld) [#/Vol] 10*3/uL Normal <0.01 [facility] Comment on above: Order Comment: Speci men Type: BLOOD SPECIMENOrdering Facility: [facility] Address: [address] [place] [address] Performed By: #### 5 8410-2 ####[facility] LABORATORYCLIA [id number] [address] [place] Platelet mean volume (Bld) [Entitic vol] 11.0 fL Normal 9.0-12.7 [facility] Comment on above: Order Comment: Speci men Type: BLOOD SPECIMENOrdering Facility: [facility] Address: [address] [place] [address] Performed By: #### 5 8410-2 ####[facility] LABORATORYCLIA [id number] [address] [place] Platelets (Bld) [#/Vol] 217 10*3/uL Normal 150-400 [facility] Comment on above: Order Comment: Speci men Type: BLOOD SPECIMENOrdering Facility: [facility] Address: [address] [place] [address] Performed By: #### 5 8410-2 ####[facility] LABORATORYCLIA [id number] [address] [place] RBC (Bld) [#/Vol] 3.72 10*6/uL Low 3.90-5.20 [facility] Comment on above: Order Comment: Speci men Type: BLOOD SPECIMENOrdering Facility: [facility] Address: [address] [place] [address] Performed By: #### 5 8410-2 ####[facility] LABORATORYCLIA [id number] [place] [address] [place] [place] WBC (Bld) [#/Vol] 7.56 10*3/uL Normal 3.70-11.00 [facility] Comment on above: Order Comment: Speci men Type: BLOOD SPECIMENOrdering Facility: [facility] Address: [facility] [place] [address] Performed By: #### 5 8410-2 ####[facility] LABORATORYCLIA [id number] [place] [address] [facility] [place] CNDSon 09-23-2024 CNDS HNO ID: [id number] Author: TARAH GOLDSMITH MD Service: Electrophysiology Author [...] FU in EP clinic as scheduled. Normal [facility] CNPNon 09-23-2024 CNPN Telephone ([facility]) BELLA MORILLO ([id number]) 1955 F Date Time Provider Department 09/23/24 [...] Hiatal hernia [K44.9] 10/08/2021 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 [Z*06/14/2023 Iron 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 *02/03/2024 Personal history of colon cancer [Z85.038] 08/03/2024 Atrial fibrillation (HCC) [I48.91] 09/22/2024 Unresponsive episode [R40.4] 09/22/2024 09/23/2024 Acute encephalopathy [G93.40] 09/22/2024 09/23/2024 Leukocytosis [D72.829] 09/22/2024 09/23/2024 Complication of anesthesia [T88.59XA] 09/23/2024 09/23/2024 Typical atrial flutter (HCC) [I48.3] 09/23/2024 Encounter Status:Closed by TARAH GOLDSMITH on 09/23/24 Normal [facility] Magnesium SerPl-mCncon 09-23 Magnesium [Mass/Vol] 2.8 mg/dL High 1.7-2.3 [facility] Comment on above: Order Comment: Speci men Type: BLOOD SPECIMENOrdering Facility: [facility] Address: [address] [place], [place] [address] [address] Performed By: #### 2 4321-2, 93495-5, 3024-7, 3051-0, 2777-1 ####[facility] LABORATORYCLIA [id number] [address] [place] Phosphate SerPl-mCncon 09-23 Phosphate [Mass/Vol] 3.5 mg/dL Normal 2.7-4.8 [facility] Comment on above: Order Comment: Julieta boswell Type: BLOOD SPECIMENOrdering Facility: [facility] Address: [address] [place] [address] Performed By: #### 2 4321-2, 56998-2, 3024-7, 3051-0, 2777-1 ####[facility] LABORATORYCLIA [id number] [address] STATES OF [facility] T3Free SerPl-mCncon 09-24-19 25 Free T3 [Mass/Vol] 3.5 pg/mL Normal 2.3-4.1 [facility] Comment on above: Order Comment: Julieta boswell Type: BLOOD SPECIMENOrdering Facility: [facility] Address: [address] [place] [address] Performed By: #### 2 4321-2, 30490-2, 3024-7, 3051-0, 2777-1 ####[facility] LABORATORYCLIA [id number] [address] STATES [place] T4 Free SerPl-mCncon 025 Free T4 [Mass/Vol] 1.1 ng/dL Normal 0.9-1.7 [facility] Comment on above: Order Comment: Julieta boswell Type: BLOOD SPECIMENOrdering Facility: [facility] Address: [address] [place] [address] Performed By: #### 2 4321-2, 55559-3, 3024-7, 3051-0, 2777-1 ####[facility] LABORATORYCLIA [id number] [place] [address] [place] ALLIED HEALTHon 09-22-2024 ALLIED HEALTH HNO ID: [id number] Author: CARMITA TORO, [employer] Service: ? Author Type: Technologist Type: Allied [...] PATIENT PRESENTS WITH AN IMPLANTABLE OR ATTACHED BUSINESS SERVICES TECH: No RADIOLOGY DEPARTMENT: MR; Exam(s) Completed: Head: Routine Brain. Lavender Administered: No PERIPHERAL IV DATA: Inpatient: see LDA documentation SIGNED BY: JUVE Gray September 22, 2024 6:33 PM Normal [facility] ALLIED HEALTH HNO ID: [id number] Author: LILLY MIDDLETON RT(R) Service: Radiology Author [...] PATIENT PRESENTS WITH AN IMPLANTABLE OR ATTACHED BUSINESS SERVICES TECH: No ALLERGIES: Reviewed and unchanged CONTRAST ALLERGY: [...] September 22, 2024 TIME: 4:31 PM Normal [facility] ANES POSTPROC EVALon 025 ANES POSTPROC EVAL HNO ID: [id number] Author: AXEL MONTAGUE MD Service: Anesthesiology Author Type: Physician Type: Anesthesia Postprocedure Evaluation Filed: 09/22/2024 17:15 Note Text: POST ANESTHESIA EVALUATION NOTE : 1955 Procedure Summary Date: 09/22/24 Room / Location: [facility] / [place] [facility] Anesthesia Start: 1231 Anesthesia Stop: [...] September 22, 2024 TIME: 5:11 PM CSN: [id number] Normal [facility] ANES PRE-OPon 09-22-2024 ANES PRE-OP HNO ID: [id number] Author: AXEL MONTAGUE MD Service: Anesthesiology Author Type: Physician Type: Anesthesia Preprocedure Evaluation Filed: 09/22/2024 12:56 Note Text: ANESTHESIOLOGY DAY OF SURGERY NOTE : 1955 Procedure Information Anesthesia Start Date/Time: 09/22/24 1231 Procedures: COMPRE EP EVAL ABLTJ ATR FIB PULM VEIN ISOLATION - HANDP morning of possible BRYAN if in AF on arrival ECHOCARDIOGRAM TRANSESOPHOGEAL, REAL TIME W/IMAGE DOCUMENT (2D) Location: [facility] / [place] [facility] Surgeons: Chi Zamora MD Estimated [...] and consent discussed: yes. Patient / Responsible Democrat agrees to proceed: yes Patient / Surrogate [...] September 22, 2024 TIME: 12:55 PM CSN: [id number] Normal [facility] ARTERIAL BLOOD GASESon 09-22 Base deficit (BldA) [Moles/Vol] -1 mmol/L Normal -2-0 [facility] Comment on above: Order Comment: Speci men Type: ARTERIAL BLOOD SPECIMENOrdering Facility: [facility] Address: [address] [place] [address] Performed By: #### A LLBG ####[facility] LABORATORYCLIA [id number] [address] STATES [facility] Body temperature 98.6 [degF] Normal [facility] Comment on above: Order Comment: Speci men Type: ARTERIAL BLOOD SPECIMENOrdering Facility: [facility] Address: [address] [place] [address] Performed By: #### A LLBG ####[facility] LABORATORYCLIA [id number] [address] STATES [place] Calcium.ionized (BldV) [Mass/Vol] 1.29 mmol/L Normal 1.08-1.30 [facility] Comment on above: Order Comment: Speci men Type: ARTERIAL BLOOD SPECIMENOrdering Facility: [facility] Address: [address] [place] [address] Performed By: #### A LLBG ####[facility] LABORATORYCLIA [id number] [address] Calcium.ionized adjusted to pH 7.4 (BldA) [Moles/Vol] 1.25 mmol/L Normal 1.08-1.30 [facility] Comment on above: Order Comment: Speci men Type: ARTERIAL BLOOD SPECIMENOrdering Facility: [facility] Address: [address] [place] [address] Performed By: #### A LLBG ####[facility] LABORATORYCLIA [id number] [address] [place] Carboxyhemoglobin (BldA) [Mass fraction] 2.2 % High 0.0-2.0 [facility] Comment on above: Order Comment: Speci men Type: ARTERIAL BLOOD SPECIMENOrdering Facility: [facility] Address: [address] [place] [address] Result Comment: Carb oxyhemoglobin Reference Range for Smokers: 2.0-8.0% Performed By: #### A LLBG ####[facility]ORATORYCLIA [id number] [address] STATES [place] Chloride [Moles/Vol] 105 mmol/L Normal 97-105 [facility] Comment on above: Order Comment: Speci men Type: ARTERIAL BLOOD SPECIMENOrdering Facility: [facility] Address: [address] [place] [address] Performed By: #### A LLBG ####[facility] LABORATORYCLIA [id number] [address] [place] CO2 (Bld) [Partial pressure] 46 mm Hg Normal 36-46 [facility] Comment on above: Order Comment: Speci men Type: ARTERIAL BLOOD SPECIMENOrdering Facility: [facility] Address: [address] [place] [address] Performed By: #### A LLBG ####[facility] LABORATORYCLIA [id number] [address] STATES [place] Glucose [Mass/Vol] 104 mg/dL Normal 60-105 [facility] Comment on above: Order Comment: Speci men Type: ARTERIAL BLOOD SPECIMENOrdering Facility: [facility] Address: [address] [place] [address] Performed By: #### A LLBG ####[facility] LABORATORYCLIA [id number] [address] STATES [place] HCO3 (Bld) [Moles/Vol] 24 mmol/L Normal 22-26 [facility] Comment on above: Order Comment: Speci men Type: ARTERIAL BLOOD SPECIMENOrdering Facility: [facility] Address: [address] [place] [address] Performed By: #### A LLBG ####[facility] LABORATORYCLIA [id number] [address] STATES [place] Hematocrit (Bld) [Volume fraction] 35.2 % Low 36.0-46.0 [facility] Comment on above: Order Comment: Speci men Type: ARTERIAL BLOOD SPECIMENOrdering Facility: [facility] Address: [address] [place] [address] Performed By: #### A LLBG ####[facility]ORATORYCLIA [id number] [address] STATES [place] Hemoglobin (Bld) [Mass/Vol] 11.4 g/dL Low 11.5-15.5 [facility] Comment on above: Order Comment: Speci men Type: ARTERIAL BLOOD SPECIMENOrdering Facility: [facility] Address: [address] [place] [address] Performed By: #### A LLBG ####[facility] LABORATORYCLIA [id number] [address] STATES [place] Lactate [Moles/Vol] 0.6 mmol/L Normal 0.5-2.2 [facility] Comment on above: Order Comment: Speci men Type: ARTERIAL BLOOD SPECIMENOrdering Facility: [facility] Address: [address] [place] [address] Performed By: #### A LLBG ####[facility]ORATORYCLIA [id number] [address] STATES [place] LITERS 2 Liters/min Normal [facility] Comment on above: Order Comment: Speci men Type: ARTERIAL BLOOD SPECIMENOrdering Facility: [facility] Address: [address] [place] [address] Performed By: #### A LLBG ####[facility] LABORATORYCLIA [id number] [address] STATES [place] Methemoglobin (Bld) [Mass fraction] 1.0 % Normal 0.0-1.5 [facility] Comment on above: Order Comment: Speci men Type: ARTERIAL BLOOD SPECIMENOrdering Facility: [facility] Address: [address] [place] [address] Performed By: #### A LLBG ####[facility] LABORATORYCLIA [id number] [address] STATES [place] O2 THERAPY NC = Nasal Cannula Normal [facility] Comment on above: Order Comment: Speci men Type: ARTERIAL BLOOD SPECIMENOrdering Facility: [facility] Address: [address] [place] [address] Performed By: #### A LLBG ####[facility] LABORATORYCLIA [id number] [address] STATES [place] Oxygen (Bld) [Partial pressure] 78 mm Hg Low 85-95 [facility] Comment on above: Order Comment: Speci men Type: ARTERIAL BLOOD SPECIMENOrdering Facility: [facility] Address: [address] [place] [address] Performed By: #### A LLBG ####[facility] LABORATORYCLIA [id number] [address] [place] Oxyhemoglobin (BldA) [Mass fraction] 92 % Low 95-98 [facility] Comment on above: Order Comment: Speci men Type: ARTERIAL BLOOD SPECIMENOrdering Facility: [facility] Address: [address] [place] [address] Performed By: #### A LLBG ####[facility] LABORATORYCLIA [id number] [place] [address] [place] pH (Bld) 7.34 [pH] Low 7.35-7.45 [facility] Comment on above: Order Comment: Speci men Type: ARTERIAL BLOOD SPECIMENOrdering Facility: [facility] Address: [address] [place] [address] Performed By: #### A LLBG ####[facility] LABORATORYCLIA [id number] [place] [address] [place] Potassium [Moles/Vol] 4.3 mmol/L Normal 3.5-5.0 [facility] Comment on above: Order Comment: Speci men Type: ARTERIAL BLOOD SPECIMENOrdering Facility: [facility] Address: [address] [place] [address] Performed By: #### A LLBG ####[facility] LABORATORYCLIA [id number] [place] [address] [place] Sodium [Moles/Vol] 138 mmol/L Normal 136-144 [facility] Comment on above: Order Comment: Speci men Type: ARTERIAL BLOOD SPECIMENOrdering Facility: [facility] Address: [address] [place] [address] Performed By: #### A LLBG ####[facility] LABORATORYCLIA [id number] [place] [address] [place] Basic metabolic 2000 panelon 09-22-2024 Anion gap [Moles/Vol] 11 mmol/L Normal 8-15 [facility] Comment on above: Order Comment: Speci men Type: BLOOD SPECIMENOrdering Facility: [facility] Address: [address] [place] [address] Performed By: #### 1 9123-9, 27710-24, 48368-9 ####[facility] LABORATORYCLIA [id number] [place] [address] [place] Calcium [Mass/Vol] 9.1 mg/dL Normal 8.5-10.2 [facility] Comment on above: Order Comment: Speci men Type: BLOOD SPECIMENOrdering Facility: [facility] Address: [address] [place] [address] Performed By: #### 1 9123-9, 27710-24, 10320-3 ####[facility] LABORATORYCLIA [id number] [place] [address] [place] Chloride [Moles/Vol] 103 mmol/L Normal 98-107 [facility] Comment on above: Order Comment: Speci men Type: BLOOD SPECIMENOrdering Facility: [facility] Address: [address] [place] [address] Performed By: #### 1 9123-9, 2776-04, 56373-9 ####[facility] LABORATORYCLIA [id number] [place] [id number] [place] CO2 [Moles/Vol] 24 mmol/L Normal 22-30 [facility] Comment on above: Order Comment: Speci men Type: BLOOD SPECIMENOrdering Facility: [facility] Address: [address] [place] [address] Performed By: #### 1 9123-9, 2771, 86319-2 ####[facility]OSPITALIA [id number] [place] [address] [place] Creatinine [Mass/Vol] 0.84 mg/dL Normal 0.58-0.96 [facility] Comment on above: Order Comment: Specjoshua boswell Type: BLOOD SPECIMENOrdering Facility: [facility] Address: [address] [place] [address] Performed By: #### 1 9123-9, 2777-, 50082-9 ####[facility] HOSPITALIA [id number] [place], [place] [id number] [place] [address] Creatinine and Glomerular filtration rate.predicted panel (S/P/Bld) 76 mL/min/1.73m??? Normal >=60 [facility] Comment on above: Order Comment: [facility] Type: BLOOD SPECIMENOrdering Facility: [facility] Address: [address] [place] [address] Result Comment: Valarie mated Glomerular Filtration Rate [...] GFR. Performed By: #### 1 9123-9, 2777-, 86612-6 ####[facility]OSPITALIA [id number] [place] [id number] [place] Glucose [Mass/Vol] 102 mg/dL High 74-99 [facility] Comment on above: Order Comment: Speci andreia Type: BLOOD SPECIMENOrdering Facility: [facility] Address: [address] [place] [address] Result Comment: The [place] Diabetes [employer] (ADA) provides guidance for cutoff [...] Standards of Medical Care in Diabetes 2016, [place] [employer]. Diabetes Care. 2016.39(Suppl 1). Performed By: #### 1 9123-9, 2777-1, 23130-5 ####[facility] LABORATORYCLIA [id number] [place] [address] [place] Potassium [Moles/Vol] 4.2 mmol/L Normal 3.7-5.1 [facility] Comment on above: Order Comment: Speci men Type: BLOOD SPECIMENOrdering Facility: [facility] Address: [address] [place] [address] Performed By: #### 1 9123-9, 2777, 43497-4 ####[facility] LABORATORYCLIA [id number] [place] [address] [place] Sodium [Moles/Vol] 138 mmol/L Normal 136-144 [facility] Comment on above: Order Comment: Speci men Type: BLOOD SPECIMENOrdering Facility: [facility] Address: [address] [place] [address] Performed By: #### 1 9123-9, 27710-24, 28141-5 ####[facility] LABORATORYCLIA [id number] [place] [address] [place] Urea nitrogen [Mass/Vol] 17 mg/dL Normal 7-21 [facility] Comment on above: Order Comment: Speci men Type: BLOOD SPECIMENOrdering Facility: [facility] Address: [address] [place] [address] Performed By: #### 1 9123-9, 2777, 43232-3 ####[facility] LABORATORYCLIA [id number] [place] [address] [place] Anion gap [Moles/Vol] 9 mmol/L Normal 8-15 [facility] Comment on above: Order Comment: Speci men Type: BLOOD SPECIMENOrdering Facility: [facility] Address: [address] [place] [address] Performed By: #### 2 4321-2, 3015-3 ####[facility]ORATORYCLIA [id number] [place] [address] [place] Calcium [Mass/Vol] 9.7 mg/dL Normal 8.5-10.2 [facility] Comment on above: Order Comment: Speci men Type: BLOOD SPECIMENOrdering Facility: [facility] Address: [address] [place] [address] Performed By: #### 2 1-2, 3015-3 ####[facility]ORATORYCLIA [id number] [place] [address] [place] Chloride [Moles/Vol] 105 mmol/L Normal 98-107 [facility] Comment on above: Order Comment: Speci men Type: BLOOD SPECIMENOrdering Facility: [facility] Address: [address] [place] [address] Performed By: #### 2 4320-2, 3015-3 ####[facility]ORATORYCLIA [id number] [place] [address] [place] CO2 [Moles/Vol] 29 mmol/L Normal 22-30 [facility] Comment on above: Order Comment: Speci men Type: BLOOD SPECIMENOrdering Facility: [facility] Address: [address] [place] [address] Performed By: #### 2 4320-2, 3015-3 ####[facility]ORATORYCLIA [id number] [place] [address] [place] Creatinine [Mass/Vol] 0.90 mg/dL Normal 0.58-0.96 [facility] Comment on above: Order Comment: Speci men Type: BLOOD SPECIMENOrdering Facility: [facility] Address: [address] [place] [address] Performed By: #### 2 1-2, 3015-3 ####[facility]ORATORYCLIA [id number] [place] [address] [place] Creatinine and Glomerular filtration rate.predicted panel (S/P/Bld) 70 mL/min/1.73m??? Normal >=60 [facility] Comment on above: Order Comment: Julieta boswell Type: BLOOD SPECIMENOrdering Facility: [facility] Address: [address] [place] [address] Result Comment: Valarie mated Glomerular Filtration Rate [...] GFR. Performed By: #### 2 4321-2, 3016-3 ####[facility] LABORATORYCLIA [id number] [place] [address] [place] Glucose [Mass/Vol] 91 mg/dL Normal 74-99 [facility] Comment on above: Order Comment: Julieta boswell Type: BLOOD SPECIMENOrdering Facility: [facility] Address: [address] [place] [address] Result Comment: The [place] Diabetes [employer] (ADA) provides guidance for cutoff [...] Standards of Medical Care in Diabetes 2016, [place] [employer]. Diabetes Care. 2016.39(Suppl 1). Performed By: #### 2 4321-2, 3016-3 ####[facility] LABORATORYCLIA [id number] [place] [address] [place] Potassium [Moles/Vol] 4.3 mmol/L Normal 3.7-5.1 [facility] Comment on above: Order Comment: Speci men Type: BLOOD SPECIMENOrdering Facility: [facility] Address: [address] [place] [address] Performed By: #### 2 4321-2, 3016-3 ####[facility] LABORATORYCLIA [id number] [address] Sodium [Moles/Vol] 143 mmol/L Normal 136-144 [facility] Comment on above: Order Comment: Speci men Type: BLOOD SPECIMENOrdering Facility: [facility] Address: [address] [place] [address] Performed By: #### 2 4321-2, 6-3 ####[facility] LABORATORYCLIA [id number] [address] STATES OF [facility] Urea nitrogen [Mass/Vol] 20 mg/dL Normal 7-21 [facility] Comment on above: Order Comment: Speci men Type: BLOOD SPECIMENOrdering Facility: [facility] Address: [address] [place] [address] Performed By: #### 2 4321-2, 3015-3 ####[facility] LABORATORYCLIA [id number] [address] OF [facility] CBC panel Auto (Bld)on 09-22 Erythrocyte distribution width (RBC) [Ratio] 13.3 % Normal 11.5-15.0 [facility] Comment on above: Order Comment: Speci men Type: BLOOD SPECIMENOrdering Facility: [facility] Address: [address] [place] [address] Performed By: #### 5 8410-2 ####[facility] LABORATORYCLIA [id number] [address] Hematocrit (Bld) [Volume fraction] 33.9 % Low 36.0-46.0 [facility] Comment on above: Order Comment: Speci men Type: BLOOD SPECIMENOrdering Facility: [facility] Address: [address] [place] [address] Performed By: #### 5 8410-2 ####[facility] LABORATORYCLIA [id number] [address] Hemoglobin (Bld) [Mass/Vol] 11.2 g/dL Low 11.5-15.5 [facility] Comment on above: Order Comment: Speci men Type: BLOOD SPECIMENOrdering Facility: [facility] Address: [address] [place] [address] Performed By: #### 5 8410-2 ####[facility] LABORATORYCLIA [id number] [address] MCH (RBC) [Entitic mass] 30.4 pg Normal 26.0-34.0 [facility] Comment on above: Order Comment: Speci men Type: BLOOD SPECIMENOrdering Facility: [facility] Address: [address] [place] [address] Performed By: #### 5 8410-2 ####[facility] LABORATORYCLIA [id number] [address] MCHC (RBC) [Mass/Vol] 33.0 g/dL Normal 30.5-36.0 [facility] Comment on above: Order Comment: Speci men Type: BLOOD SPECIMENOrdering Facility: [facility] Address: [address] [place] [address] Performed By: #### 5 8410-2 ####[facility] LABORATORYCLIA [id number] [address] OF [facility] MCV (RBC) [Entitic vol] 91.9 fL Normal 80.0-100.0 [facility] Comment on above: Order Comment: Speci men Type: BLOOD SPECIMENOrdering Facility: [facility] Address: [address] [place] [address] Performed By: #### 5 8410-2 ####[facility] LABORATORYCLIA [id number] [address] Nucleated RBC (Bld) [#/Vol] 10*3/uL Normal <0.01 [facility] Comment on above: Order Comment: Speci men Type: BLOOD SPECIMENOrdering Facility: [facility] Address: [address] [place] [address] Performed By: #### 5 8410-2 ####[facility] LABORATORYCLIA [id number] [address] Platelet mean volume (Bld) [Entitic vol] 10.9 fL Normal 9.0-12.7 [facility] Comment on above: Order Comment: Speci men Type: BLOOD SPECIMENOrdering Facility: [facility] Address: [address] [place] [address] Performed By: #### 5 8410-2 ####[facility] LABORATORYCLIA [id number] [address] [place] Platelets (Bld) [#/Vol] 220 10*3/uL Normal 150-400 [facility] Comment on above: Order Comment: Speci men Type: BLOOD SPECIMENOrdering Facility: [facility] Address: [address] [place] [address] Performed By: #### 5 8410-2 ####[facility] LABORATORYCLIA [id number] [address] RBC (Bld) [#/Vol] 3.69 10*6/uL Low 3.90-5.20 [facility] Comment on above: Order Comment: Speci men Type: BLOOD SPECIMENOrdering Facility: [facility] Address: [address] [place] [address] Performed By: #### 5 8410-2 ####[facility] LABORATORYCLIA [id number] [address] [place] WBC (Bld) [#/Vol] 11.37 10*3/uL High 3.70-11.00 [facility] Comment on above: Order Comment: Speci men Type: BLOOD SPECIMENOrdering Facility: [facility] Address: [address] [place] [address] Performed By: #### 5 8410-2 ####[facility] LABORATORYCLIA [id number] [address] [place] Erythrocyte distribution width (RBC) [Ratio] 13.3 % Normal 11.5-15.0 [facility] Comment on above: Order Comment: Speci men Type: BLOOD SPECIMENOrdering Facility: [facility] Address: [address] [place] [address] Performed By: #### 5 8410-2 ####[facility] LABORATORYCLIA [id number] [address] [facility] Hematocrit (Bld) [Volume fraction] 37.8 % Normal 36.0-46.0 [facility] Comment on above: Order Comment: Speci men Type: BLOOD SPECIMENOrdering Facility: [facility] Address: [address] [place] [address] Performed By: #### 5 8410-2 ####[facility] LABORATORYCLIA [id number] [address] [place] Hemoglobin (Bld) [Mass/Vol] 12.3 g/dL Normal 11.5-15.5 [facility] Comment on above: Order Comment: Speci men Type: BLOOD SPECIMENOrdering Facility: [facility] Address: [address] [place] [address] Performed By: #### 5 8410-2 ####[facility] LABORATORYCLIA [id number] [address] [place] MCH (RBC) [Entitic mass] 29.8 pg Normal 26.0-34.0 [facility] Comment on above: Order Comment: Speci men Type: BLOOD SPECIMENOrdering Facility: [facility] Address: [address] [place] [address] Performed By: #### 5 8410-2 ####[facility] LABORATORYCLIA [id number] [address] [place] MCHC (RBC) [Mass/Vol] 32.5 g/dL Normal 30.5-36.0 [facility] Comment on above: Order Comment: Speci men Type: BLOOD SPECIMENOrdering Facility: [facility] Address: [address] [place] [address] Performed By: #### 5 8410-2 ####[facility] LABORATORYCLIA [id number] [address] [place] MCV (RBC) [Entitic vol] 91.5 fL Normal 80.0-100.0 [facility] Comment on above: Order Comment: Speci men Type: BLOOD SPECIMENOrdering Facility: [facility] Address: [address] [place] [address] Performed By: #### 5 8410-2 ####[facility] LABORATORYCLIA [id number] [address] OF [facility] Nucleated RBC (Bld) [#/Vol] 10*3/uL Normal <0.01 [facility] Comment on above: Order Comment: Speci men Type: BLOOD SPECIMENOrdering Facility: [facility] Address: [address] [place] [address] Performed By: #### 5 8410-2 ####[facility] LABORATORYCLIA [id number] [address] Platelet mean volume (Bld) [Entitic vol] 10.9 fL Normal 9.0-12.7 [facility] Comment on above: Order Comment: Speci men Type: BLOOD SPECIMENOrdering Facility: [facility] Address: [address] [place] [address] Performed By: #### 5 8410-2 ####[facility] LABORATORYCLIA [id number] [address] Platelets (Bld) [#/Vol] 241 10*3/uL Normal 150-400 [facility] Comment on above: Order Comment: Speci men Type: BLOOD SPECIMENOrdering Facility: [facility] Address: [address] [place] [address] Performed By: #### 5 8410-2 ####[facility] LABORATORYCLIA [id number] [address] [place] RBC (Bld) [#/Vol] 4.13 10*6/uL Normal 3.90-5.20 [facility] Comment on above: Order Comment: Speci men Type: BLOOD SPECIMENOrdering Facility: [facility] Address: [address] [place] [id number] Performed By: #### 5 8410-2 ####[facility] LABORATORYCLIA [id number] [place] [id number] [facility] WBC (Bld) [#/Vol] 6.68 10*3/uL Normal 3.70-11.00 [facility] Comment on above: Order Comment: Speci men Type: BLOOD SPECIMENOrdering Facility: [facility] Address: [address] [place] [id number] Performed By: #### 5 8410-2 ####[facility] LABORATORYCLIA [id number] [place] [address] [facility] CONSULTon 09-22-2024 CONSULT HNO ID: [id number] Author: FRANCISCO ESPITIA APRN.TOE POUNDER Service: Neurology ICU Author Type: Nurse Practitioner [...] year old female with AF (on Eliquis CORE MAN) presented to [facility] on 09/22 for an elective atrial fibrillation [...] PMH significant for anemia, AF (on Eliquis CORE MAN), hypothyroidism, macular degeneration, migraines, and PACs who presented to [facility] on 09/22 for an elective atrial fibrillation [...] (Marianne* R (more content not included)... Normal [facility] CT BRAIN ATTACK WO IVCONon 0 09-22-2024 CT BRAIN ATTACK WO IVCON * * *Final Report* * * DATE OF EXAM: Sep 22 2024 4:31PM [facility] 0502 - CT BRAIN ATTACK WO IVCON [...] CNP on 09/22/2024 4:37 PM . CR_1 [employer] Sales Manager: ANGIE Transcribe Date/Time: Sep 22 2024 4:31P Dictated by : MILAN BOSE MD This examination was interpreted and the report reviewed and electronically signed by: MILAN BOSE MD on Sep 22 2024 4:38PM EST [id number] CRITICAL!! Invalid Interpretation Code [facility] CTA HEAD W IVCONon 5 CTA HEAD W IVCON * * *Final Report* * * DATE OF EXAM: Sep 22 2024 4:31PM [facility] 0022 - CTA HEAD W IVCON / [...] bilateral posterior superior cerebellar arteries are patent. Face Cleaner (topogram) images: Unremarkable. IMPRESSION: 1. No evidence of large vessel occlusion or significant stenosis in the head or neck. 2. 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 3. Mild atherosclerotic [...] Concordance between software and imaging review: Concordant. [employer] Sales Manager: ANGIE Transcribe Date/Time: Sep 22 2024 4:39P Dictated by : MILAN BOSE MD This examination was interpreted and the report reviewed and electronically signed by: MILAN BOSE MD on Sep 22 2024 4:48PM EST [id number] Normal [facility] CTA NECK W IVCONon 5 CTA NECK W IVCON * * *Final Report* * * DATE OF EXAM: Sep 22 2024 4:31PM [facility] 0024 - CTA NECK W IVCON / [...] bilateral posterior superior cerebellar arteries are patent. Face Cleaner (topogram) images: Unremarkable. IMPRESSION: 1. No evidence of large vessel occlusion or significant stenosis in the head or neck. 2. 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 3. Mild atherosclerotic [...] Concordance between software and imaging review: Concordant. [employer] Sales Manager: ANGIE Transcribe Date/Time: Sep 22 2024 4:39P Dictated by : MILAN BOSE MD This examination was interpreted and the report reviewed and electronically signed by: MILAN BOSE MD on Sep 22 2024 4:48PM EST [id number] Normal [facility] HIGH SENSITIVITY TROPONIN To n 09-22-2024 Troponin T.cardiac High sensitivity method [Mass/Vol] 924 ng/L High <12 [facility] Comment on above: Order Comment: Speci men Type: BLOOD SPECIMENOrdering Facility: [facility] Address: [address] [place] [address] Performed By: #### H STNT ####[facility] LABORATORYCLIA [id number] [place] [id number] [place] HISTORY PHYSICALon HISTORY PHYSICAL HNO ID: [id number] Author: FRANCISCO WELCH APRN.TOE POUNDER Service: Neurology ICU Author Type: Nurse Practitioner [...] anesthesia ==== STAFF COORDINATION OF CRITICAL CARE [facility] Staff Physician note of personal [...] cards metop ongoing on eliquis will hold [facility] verona ambulation and dc to home Please see the documented jnmvvw-az-moxwgw plan in the updated problem list. Plan of care discussed with: . Rossana Sepulveda DO, PhD Staff, Neurointensive Care [facility] [place] Date of Service: 09/23/2024 Time [...] Stroke Mechanism: METRICS: Initial NIHSS Score: 30 Keymar Coma Scale Totals (Calculated): 7 Date Patient Last Known Well: 09/22/24 Time Patient Last Known Well: 1218 Pre-admission: Was patient on antithrombotic agent prior to admission: Anticoagulant Premorbid Modified Pearson Score: 0=0 - No symptoms at all Baseline Functional Status (i.e. ADL's, Ambulatory Status, Cognitive Issues): Independent Subjective HPI: 69 year old female with PMH significant for anemia, AF (on Eliquis CORE MAN), hypothyroidism, macular degeneration, molina (more content not included)... Normal [facility] HISTORY PHYSICAL HNO ID: [id number] Author: CHI ZAMORA MD Service: Electrophysiology Author [...] September 22, 2024 TIME: 2:49 PM Normal [facility] MRI BRAIN WO IVCONon 025 MRI BRAIN WO IVCON * * *Final Report* * * DATE OF EXAM: Sep 22 2024 6:55PM [facility] 0294 - MRI BRAIN WO IVCON / [...] abnormality. 2. Minimal chronic microvascular ischemic changes. [employer] Sales Manager: ANGIE Transcribe Date/Time: Sep 22 2024 6:56P Dictated by : CORBY CRUMP MD This examination was interpreted and the report reviewed and electronically signed by: CORBY CRUMP MD on Sep 22 2024 7:06PM EST [id number] Normal [facility] Magnesium SerPl-mCncon 09-22 Magnesium [Mass/Vol] 1.5 mg/dL Low 1.7-2.3 [facility] Comment on above: Order Comment: Speci men Type: BLOOD SPECIMENOrdering Facility: [facility] Address: [address] [place] [address] Performed By: #### 1 9123-9, 2777-1, 24718-7 ####[facility] LABORATORYCLIA [id number] [place] [address] [place] NURSING PROGon 09-22-2024 NURSING PROG HNO ID: [id number] Author: SARAH BONILLA RN Service: Nursing Author Type: Registered Nurse Type: Nursing Progress Note Filed: 09/22/2024 20:00 Note Text: Summary: Handoff/ documentation Correction Report was given to NSICU RN Sunitha who is now assuming care of this patient [facility] Rapid Response Nurse was present for stroke team and assisted as needed but did not: receive bedside handoff or assume care of this patient. Normal [facility] Phosphate SerPl-mCncon 09-22 Phosphate [Mass/Vol] 3.7 mg/dL Normal 2.7-4.8 [facility] Comment on above: Order Comment: Julieta boswell Type: BLOOD SPECIMENOrdering Facility: [facility] Address: [address] [place] [address] Performed By: #### 1 9123-9, 2777-1, 21095-0 ####[facility] LABORATORYCLIA [id number] [address] [place] TSH SerPl-aCncon 09-22-2024 TSH Qn 0.032 m[IU]/L Low 0.270-4.20 0 [facility] Comment on above: Order Comment: Julieta boswell Type: BLOOD SPECIMENOrdering Facility: [facility] Address: [address] [place] [address] Performed By: #### 2 4321-2, 3016-3 ####[facility] LABORATORYCLIA [id number] [address] [place] TYPE + SCREENon 09-22-2024 ABO A Normal [facility] Comment on above: Order Comment: Julieta boswell Type: BLOOD SPECIMENOrdering Facility: [facility] Address: [address] [place] [address] Performed By: #### T SCR ####[facility] BLOOD BANKCLIA [id number] [address] Rh Nom (Bld) Negative Normal [facility] Comment on above: Order Comment: Speci men Type: BLOOD SPECIMENOrdering Facility: [facility] Address: [address] [place] [place] [id number] Performed By: #### T SCR ####[facility] BLOOD BANKCLIA [id number] [place] [id number] [facility] TYPE AND SCREEN EXPIRATION 09/25/2024 23:59 Normal [facility] Comment on above: Order Comment: Speci men Type: BLOOD SPECIMENOrdering Facility: [facility] Address: [address] [place] [address] Performed By: #### T SCR ####[facility] BLOOD BANKCLIA [id number] [place] [id number] [facility] Tele[facility] (AGCARDPOB ) BELLA MORILLO ([id number]) 1955 F Date Time Provider Department 09/19/24 [...] before the procedure. You will need a motorcycle delivery driver when released from the hospital and [...] daily (about every 12 hours) to the [facility] pharmacy listed on her chart. She should [...] Unknown Date Reviewed: 08/03/2024 Reviewed by: Camelia lCarke RN - Fully Assessed Reason for Visit: [...] mL auto-injecto (more content not included)... Normal [facility] CBC W Auto Differential pane l (Bld)on 08-07-2024 Basophils (Bld) [#/Vol] 0.08 10*3/uL Normal <0.11 [facility] Comment on above: Order Comment: Speci men Type: BLOOD SPECIMENOrdering Facility: [facility] Address: [address] [place] [address] Performed By: #### 5 7021-8 ####[facility] [id number] [place] [address] [place] Basophils/100 WBC (Bld) 1.4 % Normal [facility] Comment on above: Order Comment: Speci men Type: BLOOD SPECIMENOrdering Facility: [facility] Address: [address] [place] [address] Performed By: #### 5 7021-8 ####[facility] [id number] [place] [address] [place] Differential cell count method Nom (Bld) Auto Normal [facility] Comment on above: Order Comment: Speci men Type: BLOOD SPECIMENOrdering Facility: [facility] Address: [address] [place] [address] Performed By: #### 5 7021-8 ####[facility] [id number] [place] [address] [place] Eosinophils (Bld) [#/Vol] 0.38 10*3/uL Normal <0.46 [facility] Comment on above: Order Comment: Speci men Type: BLOOD SPECIMENOrdering Facility: [facility] Address: [address] [place] [address] Performed By: #### 5 7021-8 ####[facility] STEPHIEWNCLIA [id number] [place] [address] [place] Eosinophils/100 WBC (Bld) 6.6 % Normal [facility] Comment on above: Order Comment: Speci men Type: BLOOD SPECIMENOrdering Facility: [facility] Address: [address] [place] [address] Performed By: #### 5 7021-8 ####[facility] HOSPITALERNESTINALIA [id number] [place] [address] [place] Erythrocyte distribution width (RBC) [Ratio] 14.2 % Normal 11.5-15.0 [facility] Comment on above: Order Comment: Speci men Type: BLOOD SPECIMENOrdering Facility: [facility] Address: [address] [place] [address] Performed By: #### 5 7021-8 ####[facility] HOSPITALDOMOA [id number] [place] [address] [place] Hematocrit (Bld) [Volume fraction] 37.2 % Normal 36.0-46.0 [facility] Comment on above: Order Comment: Speci men Type: BLOOD SPECIMENOrdering Facility: [facility] Address: [address] [place] [address] Performed By: #### 5 7021-8 ####[facility] HOSPITALERNESTINALIA [id number] [place] [address] [place] Hemoglobin (Bld) [Mass/Vol] 12.1 g/dL Normal 11.5-15.5 [facility] Comment on above: Order Comment: Speci men Type: BLOOD SPECIMENOrdering Facility: [facility] Address: [address] [place] [address] Performed By: #### 5 7021-8 ####[facility] HOSPITALNCLIA [id number] [place] [address] [place] Immature granulocytes (Bld) [#/Vol] 10*3/uL Normal <0.10 [facility] Comment on above: Order Comment: Speci men Type: BLOOD SPECIMENOrdering Facility: [facility] Address: [address] [place] [address] Performed By: #### 5 7021-8 ####[facility] HOSPITALNCA [id number] [place] [address] [place] Immature granulocytes/100 WBC (Bld) 0.2 % Normal [facility] Comment on above: Order Comment: Speci men Type: BLOOD SPECIMENOrdering Facility: [facility] Address: [address] [place] [address] Performed By: #### 5 7021-8 ####[facility] [id number] [place] [address] [place] Lymphocytes (Bld) [#/Vol] 1.31 10*3/uL Normal 1.00-4.00 [facility] Comment on above: Order Comment: Speci men Type: BLOOD SPECIMENOrdering Facility: [facility] Address: [address] [place] [address] Performed By: #### 5 7021-8 ####[facility] [id number] [place] [address] [place] Lymphocytes/100 WBC (Bld) 22.6 % Normal [facility] Comment on above: Order Comment: Speci men Type: BLOOD SPECIMENOrdering Facility: [facility] Address: [address] [place] [address] Performed By: #### 5 7021-8 ####[facility] [id number] [place] [address] [place] MCH (RBC) [Entitic mass] 29.1 pg Normal 26.0-34.0 [facility] Comment on above: Order Comment: Speci men Type: BLOOD SPECIMENOrdering Facility: [facility] Address: [address] [place] [address] Performed By: #### 5 7021-8 ####[facility] MALINA [id number] [place] [address] [place] MCHC (RBC) [Mass/Vol] 32.5 g/dL Normal 30.5-36.0 [facility] Comment on above: Order Comment: Speci men Type: BLOOD SPECIMENOrdering Facility: [facility] Address: [address] [place] [address] Performed By: #### 5 7021-8 ####[facility] HOSPITALNCDOC [id number] [place] [address] [place] MCV (RBC) [Entitic vol] 89.4 fL Normal 80.0-100.0 [facility] Comment on above: Order Comment: Speci men Type: BLOOD SPECIMENOrdering Facility: [facility] Address: [address] [place] [address] Performed By: #### 5 7021-8 ####[facility] CENTERLuciano [id number] [place] [address] [place] Monocytes (Bld) [#/Vol] 0.60 10*3/uL Normal <0.87 [facility] Comment on above: Order Comment: Speci men Type: BLOOD SPECIMENOrdering Facility: [facility] Address: [address] [place] [address] Performed By: #### 5 7021-8 ####[facility] HOSPITALNCLIA [id number] [place] [address] [place] Monocytes/100 WBC (Bld) 10.4 % Normal [facility] Comment on above: Order Comment: Speci men Type: BLOOD SPECIMENOrdering Facility: [facility] Address: [address] [place] [address] Performed By: #### 5 7021-8 ####[facility] SAMARITAN HOSPITALLIA [id number] [place] [address] [place] Neutrophils (Bld) [#/Vol] 3.41 10*3/uL Normal 1.45-7.50 [facility] Comment on above: Order Comment: Speci men Type: BLOOD SPECIMENOrdering Facility: [facility] Address: [address] [place] [address] Performed By: #### 5 7021-8 ####[facility] [id number] [place] [address] [place] Neutrophils/100 WBC (Bld) 58.8 % Normal [facility] Comment on above: Order Comment: Speci men Type: BLOOD SPECIMENOrdering Facility: [facility] Address: [address] [place] [address] Performed By: #### 5 7021-8 ####[facility] [id number] [place] [address] [place] Nucleated RBC (Bld) [#/Vol] 10*3/uL Normal <0.01 [facility] Comment on above: Order Comment: Speci men Type: BLOOD SPECIMENOrdering Facility: [facility] Address: [address] [place] [address] Performed By: #### 5 7021-8 ####[facility] [id number] [place] [address] [place] Nucleated RBC/100 WBC (Bld) [Ratio] 0.0 /100 WBC Normal [facility] Comment on above: Order Comment: Speci men Type: BLOOD SPECIMENOrdering Facility: [facility] Address: [address] [place] [address] Performed By: #### 5 7021-8 ####[facility] HOSPITALNCLI [id number] [place] [address] [place] Platelet mean volume (Bld) [Entitic vol] 11.0 fL Normal 9.0-12.7 [facility] Comment on above: Order Comment: Speci men Type: BLOOD SPECIMENOrdering Facility: [facility] Address: [address] [place] [address] Performed By: #### 5 7021-8 ####[facility] HOSPITALNCGUNNISON VALLEY [facility] [id number] [place] [address] [place] Platelets (Bld) [#/Vol] 205 10*3/uL Normal 150-400 [facility] Comment on above: Order Comment: Speci men Type: BLOOD SPECIMENOrdering Facility: [facility] Address: [address] [place] [address] Performed By: #### 5 7021-8 ####[facility]PITALNCGUNNISON VALLEY H[facility]ITAL [id number] [place] [address] [place] RBC (Bld) [#/Vol] 4.16 10*6/uL Normal 3.90-5.20 [facility] Comment on above: Order Comment: Speci men Type: BLOOD SPECIMENOrdering Facility: [facility] Address: [address] [place] [address] Performed By: #### 5 7021-8 ####[facility] HOSPITALNCA [id number] [place] [address] [place] WBC (Bld) [#/Vol] 5.79 10*3/uL Normal 3.70-11.00 [facility] Comment on above: Order Comment: Speci men Type: BLOOD SPECIMENOrdering Facility: [facility] Address: [address] [place] [address] Performed By: #### 5 7021-8 ####[facility] HOSPITALNCLI [id number] [place] [address] [place] Ferritin SerPl-mCncon 2024 Ferritin [Mass/Vol] 230.0 ng/mL High 14.7-205.1 [facility] Comment on above: Order Comment: Speci men Type: BLOOD SPECIMENOrdering Facility: [facility] Address: [address] [place] [address] Performed By: #### 5 0190-8, 2275-4 ####[facility] LABCLIA [id number] [place] [address] [place] Iron and Iron binding capaci ty panelon 08-07-2024 Iron [Mass/Vol] 84 ug/dL Normal 41-186 [facility] Comment on above: Order Comment: Speci men Type: BLOOD SPECIMENOrdering Facility: [facility] Address: [address] [place] [address] Performed By: #### 5 0190-8, 2275-4 ####[facility] LABIA [id number] [address] STATES [facility] Iron binding capacity [Mass/Vol] 240 ug/dL Normal 232-386 [facility] Comment on above: Order Comment: Speci men Type: BLOOD SPECIMENOrdering Facility: [facility] Address: [address] [place] [address] Performed By: #### 5 0190-8, 4 ####[facility] LABIA [id number] [address] [place] Iron/TIBC [Molar ratio] 35.0 % Normal 15.0-57.0 [facility] Comment on above: Order Comment: Speci men Type: BLOOD SPECIMENOrdering Facility: [facility] Address: [address] [place] [address] Performed By: #### 5 0190-8, 4 ####[facility] LABIA [id number] [place] [id number] [place] Valerie 08-04-2024 POOJAN Telephone (DARIEN) BELLA MORILLO ([id number]) 1955 F Date Time Provider Department 08/04/24 [...] (HCC) [I48.0] Order(s):SURGICAL REQUEST - ELECTIVE (11/2019) [9031367] Order #: [id number]: 1 Prescriptions as of 08/04/2024 - HYDROcodone-acetaminophen [...] vitamin D deficiency [E55.9] 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 Normal [facility] [id number] 08-03-2024 [id number] HNO ID: [id number] Author: CAMELIA CLARKE RN Service: ? Author Type: Registered Nurse Type: [id number] Filed: 08/03/2024 12:22 Note Text: The patient received a copy of Colonoscopy discharge instructions that contain information for how to contact the physician who performed the procedure and when to seek medical care. Normal [facility] Colonoscopyon 08-03-2024 Colonoscopy [facility] Gastrointestinal Endoscopy Patient Name: Bella Morillo Procedure [...] be scheduled. Procedure Code(s): --- Professional --- 60353, Colonoscopy, flexible; diagnostic, including collection of specimen(s) by brushing or washing, when performed (separate procedure) G0500, Moderate sedation services provided by the same physician or other qualified health healthcare representative performing a gastrointestinal endoscopic service that sedation supports, requiring the presence of an independent trained observer to assist in the monitoring of the patient's level of consciousness and physiological status; initial 15 minutes of intra-service time; patient age 5 years or older (additional time may be reported with 61497, as appropriate) Diagnosis Code(s): --- Professional --- K64.8, Other hemorrhoids D50.9, Iron deficiency anemia, unspecified K57.30, Diverticulosis of large intestine without perforation or abscess without bleeding CPT copyright 202 [employer]. All rights reserved. The codes documented in this report are preliminary and upon health care specialist review may be revised to meet current compliance requirements. Attending Participation: I personally performed the entire procedure. Scope In: 11:52:55 AM Scope Out: 12:05:52 PM MD Satish Pan MD 08/03/2024 12:10:05 PM This report has been signed electronically by Satish Flynn MD Number of Addenda: 0 Note Initiated On: 08/03/2024 11:35 AM Estimated Blood Loss: Estimated blood loss: none. Normal [facility] Colonoscopy Study observatio non 08-03-2024 [facility] Gastrointestinal Endoscopy Patient Name: Bella Morillo Procedure [...] be scheduled. Procedure Code(s): --- Professional --- 46562, Colonoscopy, flexible; diagnostic, including collection of specimen(s) by brushing or washing, when performed (separate procedure) G0500, Moderate sedation services provided by the same physician or other qualified health healthcare representative performing a gastrointestinal endoscopic service that sedation supports, requiring the presence of an independ (more content not included)... [facility] Radiology Study observation (narrative) [facility] HISTORY PHYSICALon HISTORY PHYSICAL HNO ID: [id number] Author: SATISH FLYNN MD Service: General Surgery [...] significant constipation and occasional upset stomach. Taking swazi perfecto as needed. 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 [...] > 4 years ago, [facility] in [place] [address]. Reviewed would recommend repeat screening colonoscopy with a new DANITA diagnosis. Started on [place] by Dr Montero for knee pain. Denies [...] mg intr (more content not included)... Normal [facility] Valerie 07-21-2024 POOJAN Telephone (GSTNOR) BELLA MORILLO ([id number]) 1955 F Date Time Provider Department 07/21/24 [...] BMI over 45, can't be scheduled in [place], If BMI is 40-45, must schedule an airway check prior to scheduling in [place]) Tracheostomy new or old No If yes, [...] at home? No If yes, give to CIAIO COUNTER MOLDER to evaluate. Chest pain or shortness of breath on exertion? No If yes, give to CIAIO COUNTER MOLDER to evaluate. Any kidney/liver disease or on dialysis? No If cirrhosis pt., have CIAIO COUNTER MOLDER review chart History of COPD/Emphysema/Asthma/or Sleep Apnea? [...] before y (more content not included)... [facility] ([id number]) 1955 F Date Time Provider Department 07/21/24 [...] Hiatal hernia [K44.9] 10/08/2021 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 [Z*06/14/2023 Iron 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 *02/03/2024 Encounter Status:Closed by KYLIE GALEAS on 09/14/24 [facility] CNOVon 07-20-2024 CNOV Office Visit (DEMETRI BROOKS) BELLA MORILLO ([id number]) 1955 F Date Time Provider Department 07/20/24 2:00 PM [facility] ZAMORAGCARDPOB During your visit today, we recorded the following information about you: Pulse Respiration Blood pressure Weight 58/minute 16/minute 132/76 70.3 kg Height 1.702 m Chi Zamora MD 07/20/2024 2:52 PM [facility] Vascular [place] SECTION OF CARDIAC PACING and ELECTROPHYSIOLOGY OUTPATIENT VISIT DATE July 20, 2024 OUTPATIENT VISIT TYPE ESTABLISHED PRIMARY CARE PHYSICIAN: Sridhar Montero [address] [place] [address] HISTORY OF PRESENT ILLNESS: Prior history, edited as needed: 68 year female with history of PAF, s/p catheter ablation approximately 25 years ago and repeat radiofrequency ablation at [facility] in 2012, has been maintained on low-dose propafenone for symptomatic PACs, MKI6-TT2-BWSt score of 1 for gender only, not [...] attention. She is not on anticoagulation. Her BGJ7-LO3-CVTo score is currently 2, for gender and [...] mg t (more content not included)... Normal [facility] ECG B/O W INTERP (MED OFFICE )on 07-20-2024 Sinus bradycardia 58 beats minute, MN 160, QRS 90, QTc 4 ms, normal axis. [facility] Valerie 07-07-2024 LISA Telephone ([employer]) BELLA MORILLO ([id number]) 1955 F Date Time Provider Department 07/07/24 CHI ZAMORAANDROVICHAGCARReyes During your visit today, we recorded the following information about you: Jasmyn Wood LPN 07/07/2024 9:55 AM Signed Bella Morillo called in and states she [facility] for Atrial fib with [...] aura [G43.009] (more content not included)... Normal [facility] .Auto Diffon 07-05-2024 Basophil, Absolute 0.0 10 3/mcL Normal 0.0-0.2 [facility] Comment on above: Performed By: #### B MP, TSH, FT4, GFR, FT3, VIDH #### [place] [address] #### PTH #### [address] [address] Basophils/100 WBC (Bld) 0.5 % Normal 0.0-2.5 [facility] Comment on above: Performed By: #### B MP, TSH, FT4, GFR, FT3, VIDH #### [place] [address] #### PTH #### [address] [address] Eosinophil, Absolute 0.5 10 3/mcL Normal 0.0-0.7 [facility] Comment on above: Performed By: #### B MP, TSH, FT4, GFR, FT3, VIDH #### [place] [address] #### PTH #### [address] [address] Eosinophils/100 WBC (Bld) 9.6 % High 0.0-7.0 [facility] Comment on above: Performed By: #### B MP, TSH, FT4, GFR, FT3, VIDH #### [place] [address] #### PTH #### [address] [address] Lymphocyte, Absolute 1.3 10 3/mcL Normal 0.9-4.3 [facility] Comment on above: Performed By: #### B MP, TSH, FT4, GFR, FT3, VIDH #### [place] [address] #### PTH #### [address] [address] Lymphocytes/100 WBC (Bld) 25.3 % Normal 20.0-40.0 [facility] Comment on above: Performed By: #### B MP, TSH, FT4, GFR, FT3, VIDH #### [place] [address] #### PTH #### [address] [address] Monocyte, Absolute 0.5 10 3/mcL Normal 0.1-1.4 [facility] Comment on above: Performed By: #### B MP, TSH, FT4, GFR, FT3, VIDH #### [place] [address] #### PTH #### [address] [address] Monocytes/100 WBC (Bld) 10.6 % Normal 2.0-13.0 [facility] Comment on above: Performed By: #### B MP, TSH, FT4, GFR, FT3, VIDH #### [place] [address] #### PTH #### [address] [address] Neutrophils/100 WBC (Bld) 54.0 % Normal 50.0-75.0 [facility] Comment on above: Performed By: #### B MP, TSH, FT4, GFR, FT3, VIDH #### [place] [address] #### PTH #### [address] [address] .GFRon 07-05-2024 Estimated Glomerular Filtration Rate 62 ml/min/1.73sqm Normal [facility] Comment on above: Result Comment: Stages of [...] MP, TSH, FT4, GFR, FT3, VIDH #### [address] [address] #### PTH #### [address] [address] .MDWon 07-05-2024 Monocyte Distribution Width 18.06 Normal 0.00-20.00 [facility] Comment on above: Result Comment: For ED adult patients suspected of sepsis, MDW<=20.0 does not rule out sepsis or risk of sepsis Performed By: #### B MP, TSH, FT4, GFR, FT3, VIDH #### [address] [address] #### PTH #### [address] [address] .NEUABSon 07-05-2024 Neutrophil, Absolute 2.8 10 3/mcL Normal 2.3-8.1 [facility] Comment on above: Performed By: #### B MP, TSH, FT4, GFR, FT3, VIDH #### [address] [address] #### PTH #### [place] [address] APTTon 07-05-2024 aPTT Coag (Bld) [Time] 28.7 s Normal 25.0-35.0 [facility] Comment on above: Result Comment: For Heparin anticoagulation therapy, the recommended therapeutic range is: 45.4-75.9 seconds. Patients on heparin therapy may have an extreme result. Performed By: #### B MP, TSH, FT4, GFR, FT3, VIDH #### [place] [address] #### PTH #### [address] [address] BMPon 07-05-2024 BUN/Creatinine Ratio 15 ratio Normal 7-27 [facility] Comment on above: Performed By: #### B MP, TSH, FT4, GFR, FT3, VIDH #### [place] [address] #### PTH #### [address] [address] Calcium [Mass/Vol] 9.0 mg/dL Normal 8.4-10.2 [facility] Comment on above: Performed By: #### B MP, TSH, FT4, GFR, FT3, VIDH #### [place] [address] #### PTH #### [address] [address] Chloride [Moles/Vol] 103 mmol/L Normal 98-107 [facility] Comment on above: Performed By: #### B MP, TSH, FT4, GFR, FT3, VIDH #### [address] [address] #### PTH #### [address] [address] CO2 [Moles/Vol] 29 mmol/L Normal 23-31 [facility] Comment on above: Performed By: #### B MP, TSH, FT4, GFR, FT3, VIDH #### [place] [address] #### PTH #### [place] [address] Creatinine [Mass/Vol] 1.00 mg/dL Normal 0.55-1.02 [facility] Comment on above: Result Comment: Test ing performed on Siemens Dimension EXL analyzer using a modified kinetic Tere technique. Performed By: #### B MP, TSH, FT4, GFR, FT3, VIDH #### [place] [address] #### PTH #### [place] [address] Electrolyte Balance 7.0 mEq/L Normal 4.0-15.0 [facility] Comment on above: Performed By: #### B MP, TSH, FT4, GFR, FT3, VIDH #### [place] [address] #### PTH #### [place] [address] Glucose [Mass/Vol] 132 mg/dL High 80-115 [facility] Comment on above: Performed By: #### B MP, TSH, FT4, GFR, FT3, VIDH #### [place] [address] #### PTH #### [place] [address] Potassium [Moles/Vol] 4.3 mmol/L Normal 3.5-5.1 [facility] Comment on above: Performed By: #### B MP, TSH, FT4, GFR, FT3, VIDH #### [place] [address] #### PTH #### [place] [id number] Sodium [Moles/Vol] 139 mmol/L Normal 136-145 [facility] Comment on above: Performed By: #### B MP, TSH, FT4, GFR, FT3, VIDH #### [place] [address] #### PTH #### [place] [address] Urea nitrogen [Mass/Vol] 15 mg/dL Normal 7-18 [facility] Comment on above: Performed By: #### B MP, TSH, FT4, GFR, FT3, VIDH #### [address] [address] #### PTH #### [place] [address] CBCon 07-05-2024 Erythrocyte distribution width (RBC) [Ratio] 15.2 % Normal 11.5-15.5 [facility] Comment on above: Performed By: #### B MP, TSH, FT4, GFR, FT3, VIDH #### [place] [address] #### PTH #### [place] [address] Hematocrit (Bld) [Volume fraction] 37.4 % Normal 34.0-46.0 [facility] Comment on above: Performed By: #### B MP, TSH, FT4, GFR, FT3, VIDH #### [place] [address] #### PTH #### [place] [address] Hgb 12.5 G/dL Normal 12.0-16.0 [facility] Comment on above: Performed By: #### B MP, TSH, FT4, GFR, FT3, VIDH #### [place] [address] #### PTH #### [place] [address] MCH (RBC) [Entitic mass] 30.0 pg Normal 27.0-33.0 [facility] Comment on above: Performed By: #### B MP, TSH, FT4, GFR, FT3, VIDH #### [place] [address] #### PTH #### [place] [address] MCHC 33.5 G/dL Normal 32.0-36.0 [facility] Comment on above: Performed By: #### B MP, TSH, FT4, GFR, FT3, VIDH #### [place] [address] #### PTH #### [address] [address] MCV (RBC) [Entitic vol] 89.6 fL Normal 80.0-99.0 [facility] Comment on above: Performed By: #### B MP, TSH, FT4, GFR, FT3, VIDH #### [place] [address] #### PTH #### [place] [address] Platelet 207 10 3/mcL Normal 150-450 [facility] Comment on above: Performed By: #### B MP, TSH, FT4, GFR, FT3, VIDH #### [place] [address] #### PTH #### [place] [address] Platelet mean volume (Bld) [Entitic vol] 8.9 fL Normal 6.6-10.5 [facility] Comment on above: Performed By: #### B MP, TSH, FT4, GFR, FT3, VIDH #### [place] [address] #### PTH #### [place] [address] RBC 4.17 10 6/mcL Normal 4.10-5.30 [facility] Comment on above: Performed By: #### B MP, TSH, FT4, GFR, FT3, VIDH #### [place] [address] #### PTH #### [place] [address] WBC 5.1 10 3/mcL Normal 4.5-10.8 [facility] Comment on above: Performed By: #### B MP, TSH, FT4, GFR, FT3, VIDH #### [address] [address] #### PTH #### [place] [address] FT4on 07-05-2024 Free T4 [Mass/Vol] 1.32 ng/dL Normal 0.89-1.76 [facility] Comment on above: Order Comment: Order ed by Georgia Hernandez; FT4 being sent to [facility]. 07/05/2024 13:08:07 EDT EH Result Comment: No te - New Reference Range in effect 19 Performed By: #### B MP, TSH, FT4, GFR, FT3, VIDH #### [address] [address] #### PTH #### [place] [address] MGon 07-05-2024 Magnesium [Mass/Vol] 1.7 mg/dL Low 1.8-2.4 [facility] Comment on above: Performed By: #### B MP, TSH, FT4, GFR, FT3, VIDH #### [address] [address] #### PTH #### [place] [address] PBNPon 07-05-2024 Natriuretic peptide B (Bld) [Mass/Vol] 643 pg/mL High 0-125 [facility] Comment on above: Result Comment: NT-p roBNP results of less than 300 pg/mL effectively rules out acute congestive heart failure with 99% negative predictive value. Performed By: #### B MP, TSH, FT4, GFR, FT3, VIDH #### [address] [address] #### PTH #### [place] [address] PROon 07-05-2024 PT Coag (PPP) [Time] 11.1 s Normal 9.0-14.4 [facility] Comment on above: Performed By: #### B MP, TSH, FT4, GFR, FT3, VIDH #### [place] [address] #### PTH #### [place] [address] PT International Ratio 1.0 Normal [facility] Comment on above: Result Comment: [employer] (CHEST, 1991, 102:312S-25S) recommended therapeutic range for oral anticoagulant therapy is: LOW RISK: Prophylaxis of venous thrombosis INR: 2.0-3.0 Treatment of pulmonary embolism 2.0-3.0 Prevention of systemic embolism 2.0-3.0 HIGH RISK: Mechanical prosthetic valves 2.5-3.5 Performed By: #### B MP, TSH, FT4, GFR, FT3, VIDH #### [place] [address] #### PTH #### [place] [address] TROPHSon 07-05-2024 High Sensitivity Troponin I <4 Normal 051 [facility] Comment on above: Result Comment: High Sensitive Troponin I Reference Ranges: Female: 0-51 ng/L Male: 0-76 ng/L Testing performed on [employer] using a homogeneous sandwich chemiluminescent immunoassay based on [employer] technology. Performed By: #### T ROP #### [place] [address] High Sensitivity Troponin I <[address] Comment on above: Result Comment: High Sensitive Troponin I Reference Ranges: Female: 0-51 ng/L Male: 0-76 ng/L Testing performed on [employer] using a homogeneous sandwich chemiluminescent immunoassay based on [employer] technology. Performed By: #### B MP, TSH, FT4, GFR, FT3, VIDH #### [place] [address] #### PTH #### [place] [address] TSHRon 07-05-2024 TSH Qn 0.10 m[IU]/L Low 0.36-3.74 [facility] Comment on above: Performed By: #### B MP, TSH, FT4, GFR, FT3, VIDH #### [address] [address] #### PTH #### [address] [address] XR CHEST 1 VIEWon 07-05-2024 XR CHEST [...] 07/05/2024 12:46:32 PM Ordering Provider: MARGARITA Wagner [facility] .Auto Diffon 06-16-2024 Basophil, Absolute 0.1 10 3/mcL Normal 0.0-0.2 [facility] Comment on above: Performed By: #### B MP, TSH, FT4, GFR, FT3, VIDH #### [address] [address] #### PTH #### [address] [address] Basophils/100 WBC (Bld) 1.5 % Normal 0.0-2.5 [facility] Comment on above: Performed By: #### B MP, TSH, FT4, GFR, FT3, VIDH #### [address] [address] #### PTH #### [address] [address] Eosinophil, Absolute 0.4 10 3/mcL Normal 0.0-0.7 [facility] Comment on above: Performed By: #### B MP, TSH, FT4, GFR, FT3, VIDH #### [place] [address] #### PTH #### [address] [address] Eosinophils/100 WBC (Bld) 5.5 % Normal 0.0-7.0 [facility] Comment on above: Performed By: #### B MP, TSH, FT4, GFR, FT3, VIDH #### [place] [address] #### PTH #### [address] [address] Lymphocyte, Absolute 1.3 10 3/mcL Normal 0.9-4.3 [facility] Comment on above: Performed By: #### B MP, TSH, FT4, GFR, FT3, VIDH #### [place] [address] #### PTH #### [address] [address] Lymphocytes/100 WBC (Bld) 18.2 % Low 20.0-40.0 [facility] Comment on above: Performed By: #### B MP, TSH, FT4, GFR, FT3, VIDH #### [place] [address] #### PTH #### [address] [address] Monocyte, Absolute 0.7 10 3/mcL Normal 0.1-1.4 [facility] Comment on above: Performed By: #### B MP, TSH, FT4, GFR, FT3, VIDH #### [place] [address] #### PTH #### [address] [address] Monocytes/100 WBC (Bld) 10.0 % Normal 2.0-13.0 [facility] Comment on above: Performed By: #### B MP, TSH, FT4, GFR, FT3, VIDH #### [address] [address] #### PTH #### [address] [address] Neutrophils/100 WBC (Bld) 64.8 % Normal 50.0-75.0 [facility] Comment on above: Performed By: #### B MP, TSH, FT4, GFR, FT3, VIDH #### [address] [address] #### PTH #### [address] [address] .GFRon 06-16-2024 Estimated Glomerular Filtration Rate 72 ml/min/1.73sqm Normal [facility] Comment on above: Result Comment: Stages of [...] MP, TSH, FT4, GFR, FT3, VIDH #### [address] [address] #### PTH #### [address] [address] .NEUABSon 06-16-2024 Neutrophil, Absolute 4.6 10 3/mcL Normal 2.3-8.1 [facility] Comment on above: Performed By: #### B MP, TSH, FT4, GFR, FT3, VIDH #### [address] [address] #### PTH #### [place] [address] ACETAon 06-16-2024 Acetaminophen [Mass/Vol] 9.0 ug/mL Low 10.0-30.0 [facility] Comment on above: Performed By: #### B MP, TSH, FT4, GFR, FT3, VIDH #### [address] [address] #### PTH #### [address] [address] AMOXICILLIN+CLAVULANATE:SUSC :PT:ISOLATE:ORDQN:MICon 06-16-2024 Amoxicillin+Clavulanat e TRUDY [Susc] >100,000 cfu/ml Escherichia coli [facility] Work Phone: Amoxicillin+Clavulanate TRUDY [Susc]on 06-16-2024 Escherichia coli Escherichia coli [facility] Work Phone: CBCon 06-16-2024 Erythrocyte distribution width (RBC) [Ratio] 14.6 % Normal 11.5-15.5 [facility] Comment on above: Performed By: #### B MP, TSH, FT4, GFR, FT3, VIDH #### [place] [address] #### PTH #### [place] [address] Hematocrit (Bld) [Volume fraction] 38.4 % Normal 34.0-46.0 [facility] Comment on above: Performed By: #### B MP, TSH, FT4, GFR, FT3, VIDH #### [place] [address] #### PTH #### [address] [address] Hgb 13.0 G/dL Normal 12.0-16.0 [facility] Comment on above: Performed By: #### B MP, TSH, FT4, GFR, FT3, VIDH #### [place] [id number] #### PTH #### [address] [address] MCH (RBC) [Entitic mass] 30.3 pg Normal 27.0-33.0 [facility] Comment on above: Performed By: #### B MP, TSH, FT4, GFR, FT3, VIDH #### [place] [address] #### PTH #### [place] [address] MCHC 33.9 G/dL Normal 32.0-36.0 [facility] Comment on above: Performed By: #### B MP, TSH, FT4, GFR, FT3, VIDH #### [place] [address] #### PTH #### [place] [address] MCV (RBC) [Entitic vol] 89.3 fL Normal 80.0-99.0 [facility] Comment on above: Performed By: #### B MP, TSH, FT4, GFR, FT3, VIDH #### [place] [address] #### PTH #### [place] [address] Platelet 234 10 3/mcL Normal 150-450 [facility] Comment on above: Performed By: #### B MP, TSH, FT4, GFR, FT3, VIDH #### [place] [address] #### PTH #### [place] [address] Platelet mean volume (Bld) [Entitic vol] 9.4 fL Normal 6.6-10.5 [facility] Comment on above: Performed By: #### B MP, TSH, FT4, GFR, FT3, VIDH #### [place] [address] #### PTH #### [place] [address] RBC 4.30 10 6/mcL Normal 4.10-5.30 [facility] Comment on above: Performed By: #### B MP, TSH, FT4, GFR, FT3, VIDH #### [place] [address] #### PTH #### [place] [address] WBC 7.1 10 3/mcL Normal 4.5-10.8 [facility] Comment on above: Performed By: #### B MP, TSH, FT4, GFR, FT3, VIDH #### [place] [address] #### PTH #### [place] [address] CMPon 06-16-2024 Albumin Level 3.9 G/dL Normal 3.4-4.8 [facility] Comment on above: Performed By: #### B MP, TSH, FT4, GFR, FT3, VIDH #### [place] [address] #### PTH #### [place] [address] Albumin/Globulin [Mass ratio] 1.1 {ratio} Normal 1.1-2.5 [facility] Comment on above: Performed By: #### B MP, TSH, FT4, GFR, FT3, VIDH #### [place] [address] #### PTH #### [place] [address] ALP [Catalytic activity/Vol] 47 U/L Normal 40-135 [facility] Comment on above: Performed By: #### B MP, TSH, FT4, GFR, FT3, VIDH #### [place] [address] #### PTH #### [place] [address] ALT [Catalytic activity/Vol] 17 U/L Normal 14-59 [facility] Comment on above: Performed By: #### B MP, TSH, FT4, GFR, FT3, VIDH #### [place] [address] #### PTH #### [place] [address] AST [Catalytic activity/Vol] 15 U/L Normal 10-40 [facility] Comment on above: Performed By: #### B MP, TSH, FT4, GFR, FT3, VIDH #### [place] [address] #### PTH #### [place] [address] Bili Total 0.5 mg/dL Normal 0.2-1.0 [facility] Comment on above: Result Comment: Use of this assay is not recommended for patients undergoing treatment with eltrombopag due to the potential for falsely elevated results. Performed By: #### B MP, TSH, FT4, GFR, FT3, VIDH #### [place] [address] #### PTH #### [place] [address] BUN/Creatinine Ratio 22 ratio Normal 7-27 [facility] Comment on above: Performed By: #### B MP, TSH, FT4, GFR, FT3, VIDH #### [place] [address] #### PTH #### [place] [address] Calcium [Mass/Vol] 9.5 mg/dL Normal 8.4-10.2 [facility] Comment on above: Performed By: #### B MP, TSH, FT4, GFR, FT3, VIDH #### [place] [address] #### PTH #### [place] [address] Chloride [Moles/Vol] 103 mmol/L Normal 98-107 [facility] Comment on above: Performed By: #### B MP, TSH, FT4, GFR, FT3, VIDH #### [address] [address] #### PTH #### [address] [address] CO2 [Moles/Vol] 31 mmol/L Normal 23-31 [facility] Comment on above: Performed By: #### B MP, TSH, FT4, GFR, FT3, VIDH #### [place] [address] #### PTH #### [place] [address] Creatinine [Mass/Vol] 0.88 mg/dL Normal 0.55-1.02 [facility] Comment on above: Result Comment: Test ing performed on Siemens Dimension EXL analyzer using a modified kinetic Tere technique. Performed By: #### B MP, TSH, FT4, GFR, FT3, VIDH #### [place] [address] #### PTH #### [place] [address] Electrolyte Balance 4.0 mEq/L Normal 4.0-15.0 [facility] Comment on above: Performed By: #### B MP, TSH, FT4, GFR, FT3, VIDH #### [place] [address] #### PTH #### [place] [address] Globulin 3.4 G/dL Normal 1.5-3.8 [facility] Comment on above: Performed By: #### B MP, TSH, FT4, GFR, FT3, VIDH #### [place] [address] #### PTH #### [place] [address] Glucose [Mass/Vol] 84 mg/dL Normal 80-115 [facility] Comment on above: Performed By: #### B MP, TSH, FT4, GFR, FT3, VIDH #### [place] [address] #### PTH #### [address] [address] Potassium [Moles/Vol] 4.5 mmol/L Normal 3.5-5.1 [facility] Comment on above: Performed By: #### B MP, TSH, FT4, GFR, FT3, VIDH #### [address] [address] #### PTH #### [place] [address] Sodium [Moles/Vol] 138 mmol/L Normal 136-145 [facility] Comment on above: Performed By: #### B MP, TSH, FT4, GFR, FT3, VIDH #### [place] [address] #### PTH #### [place] [address] Total Protein 7.3 G/dL Normal 6.4-8.2 [facility] Comment on above: Performed By: #### B MP, TSH, FT4, GFR, FT3, VIDH #### [place] [address] #### PTH #### [place] [address] Urea nitrogen [Mass/Vol] 19 mg/dL High 7-18 [facility] Comment on above: Performed By: #### B MP, TSH, FT4, GFR, FT3, VIDH #### [place] [address] #### PTH #### [place] [address] LABORATORYOrdered By: SYSTEM SYSTEM on 06-16-2024 Acetaminophen [...] Visit (SP) Office (H EMAWS) BELLA MORILLO ([id number]) 1955 F Date Time Provider Department 05/08/24 [...] significant constipation and occasional upset stomach. Taking swazi perfecto as needed. 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 [...] > 4 years ago, [facility] in [place] [address]. [place]. Reviewed would recommend repeat screening colonoscopy with a new DANITA diagnosis. Started on [place] by Dr Montero for knee pain. Denies bleeding or bruising. No changes in bowel or bladder habits. PAST MEDICAL HISTORY Diagnosis Date Anemia Atrial fibrillation (HCC) Atrophic vaginitis Dyspareunia in female Family history of breast cancer Family history of colon cancer offered Colsarthak Tneorio; pt needs to complete genetic counseling Family [...] day. cholecal (more content not included)... Normal [facility] CBC W Auto Differential pane l (Bld)on 05-04-2024 Basophils (Bld) [#/Vol] 0.11 10*3/uL High <0.11 [facility] Comment on above: Order Comment: Speci men Type: BLOOD SPECIMENOrdering Facility: [facility] Address: [address] [place] [address] Performed By: #### 5 7021-8 ####[facility] [id number] [place] [address] [place] Basophils/100 WBC (Bld) 1.9 % Normal [facility] Comment on above: Order Comment: Speci men Type: BLOOD SPECIMENOrdering Facility: [facility] Address: [address] [place] [address] Performed By: #### 5 7021-8 ####[facility] STEPHIEGurjitERNESTINALIA [id number] [place] [address] [place] Differential cell count method Nom (Bld) Auto Normal [facility] Comment on above: Order Comment: Speci men Type: BLOOD SPECIMENOrdering Facility: [facility] Address: [address] [place] [address] Performed By: #### 5 7021-8 ####[facility] HOSPITALERNESTINALIA [id number] [place] [address] [place] Eosinophils (Bld) [#/Vol] 0.45 10*3/uL Normal <0.46 [facility] Comment on above: Order Comment: Speci men Type: BLOOD SPECIMENOrdering Facility: [facility] Address: [address] [place] [address] Performed By: #### 5 7021-8 ####[facility] HOSPITALDOMOA [id number] [place] [address] [place] Eosinophils/100 WBC (Bld) 7.7 % Normal [facility] Comment on above: Order Comment: Speci men Type: BLOOD SPECIMENOrdering Facility: [facility] Address: [address] [place] [address] Performed By: #### 5 7021-8 ####[facility] HOSPITALERNESTINALIA [id number] [place] [address] [place] Erythrocyte distribution width (RBC) [Ratio] 15.9 % High 11.5-15.0 [facility] Comment on above: Order Comment: Speci men Type: BLOOD SPECIMENOrdering Facility: [facility] Address: [address] [place] [address] Performed By: #### 5 7021-8 ####[facility] HOSPITALNCLIA [id number] [place] [address] [place] Hematocrit (Bld) [Volume fraction] 39.0 % Normal 36.0-46.0 [facility] Comment on above: Order Comment: Speci men Type: BLOOD SPECIMENOrdering Facility: [facility] Address: [address] [place] [address] Performed By: #### 5 7021-8 ####[facility]OSPITALNCGUNNISON VALLEY [facility] [id number] [place] [address] [place] Hemoglobin (Bld) [Mass/Vol] 12.5 g/dL Normal 11.5-15.5 [facility] Comment on above: Order Comment: Speci men Type: BLOOD SPECIMENOrdering Facility: [facility] Address: [address] [place] [address] Performed By: #### 5 7021-8 ####[facility] HOSPITALERNESTINAGUNNISON VALLEY HOSPITAL [id number] [place] [address] [place] Immature granulocytes (Bld) [#/Vol] 10*3/uL Normal <0.10 [facility] Comment on above: Order Comment: Speci men Type: BLOOD SPECIMENOrdering Facility: [facility] Address: [address] [place] [address] Performed By: #### 5 7021-8 ####[facility] [id number] [place] [address] [place] Immature granulocytes/100 WBC (Bld) 0.2 % Normal [facility] Comment on above: Order Comment: Speci men Type: BLOOD SPECIMENOrdering Facility: [facility] Address: [address] [place] [address] Performed By: #### 5 7021-8 ####[facility] HOSPITALNCLI [id number] [place] [address] [place] Lymphocytes (Bld) [#/Vol] 1.30 10*3/uL Normal 1.00-4.00 [facility] Comment on above: Order Comment: Speci men Type: BLOOD SPECIMENOrdering Facility: [facility] Address: [address] [place] [address] Performed By: #### 5 7021-8 ####[facility] STEPHIESCOOTER [id number] [place] [address] [place] Lymphocytes/100 WBC (Bld) 22.1 % Normal [facility] Comment on above: Order Comment: Speci men Type: BLOOD SPECIMENOrdering Facility: [facility] Address: [address] [place] [address] Performed By: #### 5 7021-8 ####[facility] HOSPITALNCDOC [id number] [place] [address] [place] MCH (RBC) [Entitic mass] 28.8 pg Normal 26.0-34.0 [facility] Comment on above: Order Comment: Speci men Type: BLOOD SPECIMENOrdering Facility: [facility] Address: [address] [place] [address] Performed By: #### 5 7021-8 ####[facility] HOSPITALNCA [id number] [place] [address] [place] MCHC (RBC) [Mass/Vol] 32.1 g/dL Normal 30.5-36.0 [facility] Comment on above: Order Comment: Speci men Type: BLOOD SPECIMENOrdering Facility: [facility] Address: [address] [place] [address] Performed By: #### 5 7021-8 ####[facility] HOSPITALNCLIA [id number] [place] [address] [place] MCV (RBC) [Entitic vol] 89.9 fL Normal 80.0-100.0 [facility] Comment on above: Order Comment: Speci men Type: BLOOD SPECIMENOrdering Facility: [facility] Address: [address] [place] [address] Performed By: #### 5 7021-8 ####[facility] MILLTOWNCLIA [id number] [place] [address] [place] Monocytes (Bld) [#/Vol] 0.55 10*3/uL Normal <0.87 [facility] Comment on above: Order Comment: Speci men Type: BLOOD SPECIMENOrdering Facility: [facility] Address: [address] [place] [address] Performed By: #### 5 7021-8 ####[facility] HOSPITALLIA [id number] [place] [address] [place] Monocytes/100 WBC (Bld) 9.4 % Normal [facility] Comment on above: Order Comment: Speci men Type: BLOOD SPECIMENOrdering Facility: [facility] Address: [address] [place] [address] Performed By: #### 5 7021-8 ####[facility] HOSPITALLIA [id number] [place] [address] [place] Neutrophils (Bld) [#/Vol] 3.46 10*3/uL Normal 1.45-7.50 [facility] Comment on above: Order Comment: Speci men Type: BLOOD SPECIMENOrdering Facility: [facility] Address: [address] [place] [address] Performed By: #### 5 7021-8 ####[facility] HOSPITALLIA [id number] [place] [address] [place] Neutrophils/100 WBC (Bld) 58.7 % Normal [facility] Comment on above: Order Comment: Speci men Type: BLOOD SPECIMENOrdering Facility: [facility] Address: [address] [place] [address] Performed By: #### 5 7021-8 ####[facility] HOSPITALNCLIA [id number] [place] [address] [place] Nucleated RBC (Bld) [#/Vol] 10*3/uL Normal <0.01 [facility] Comment on above: Order Comment: Speci men Type: BLOOD SPECIMENOrdering Facility: [facility] Address: [address] [place] [address] Performed By: #### 5 7021-8 ####[facility] [id number] [place] [address] [place] Nucleated RBC/100 WBC (Bld) [Ratio] 0.0 /100 WBC Normal [facility] Comment on above: Order Comment: Speci men Type: BLOOD SPECIMENOrdering Facility: [facility] Address: [address] [place] [address] Performed By: #### 5 7021-8 ####[facility]OSPITALNCGUNNISON VALLEY HOSPITAL [id number] [place] [address] [place] Platelet mean volume (Bld) [Entitic vol] 10.5 fL Normal 9.0-12.7 [facility] Comment on above: Order Comment: Speci men Type: BLOOD SPECIMENOrdering Facility: [facility] Address: [address] [place] [address] Performed By: #### 5 7021-8 ####[facility] [id number] [place] [address] [place] Platelets (Bld) [#/Vol] 235 10*3/uL Normal 150-400 [facility] Comment on above: Order Comment: Speci men Type: BLOOD SPECIMENOrdering Facility: [facility] Address: [address] [place] [address] Performed By: #### 5 7021-8 ####[facility] HOSPITALLIA [id number] [place] [address] [place] RBC (Bld) [#/Vol] 4.34 10*6/uL Normal 3.90-5.20 [facility] Comment on above: Order Comment: Speci men Type: BLOOD SPECIMENOrdering Facility: [facility] Address: [address] [place] [address] Performed By: #### 5 7021-8 ####[facility] HOSPITALNCLIA [id number] [place] [address] [place] WBC (Bld) [#/Vol] 5.88 10*3/uL Normal 3.70-11.00 [facility] Comment on above: Order Comment: Speci men Type: BLOOD SPECIMENOrdering Facility: [facility] Address: [address] [place] [address] Performed By: #### 5 7021-8 ####[facility] HOSPITALNCLIA [id number] [place] [address] [place] Ferritin SerPl-ncon 2024 Ferritin [Mass/Vol] 176.0 ng/mL Normal 14.7-205.1 [facility] Comment on above: Order Comment: Speci men Type: BLOOD SPECIMENOrdering Facility: [facility] Address: [address] [place] [address] Performed By: #### 2 276-4, 07790-1 ####[facility] LABCLIA [id number] [place] [address] [place] Iron and Iron binding capaci ty panelon 05-04-2024 Iron [Mass/Vol] 49 ug/dL Normal 41-186 [facility] Comment on above: Order Comment: Speci men Type: BLOOD SPECIMENOrdering Facility: [facility] Address: [address] [place] [address] Performed By: #### 2 276-4, 70229-5 ####[facility] LABCLIA [id number] [place] [address] [place] Iron binding capacity [Mass/Vol] 259 ug/dL Normal 232-386 [facility] Comment on above: Order Comment: Speci men Type: BLOOD SPECIMENOrdering Facility: [facility] Address: [address] [place] [address] Performed By: #### 2 276-4, 83628-1 ####[facility] LABCLIA [id number] [place] [address] [place] Iron/TIBC [Molar ratio] 18.9 % Normal 15.0-57.0 [facility] Comment on above: Order Comment: Speci men Type: BLOOD SPECIMENOrdering Facility: [facility] Address: [address] [place] [address] Performed By: #### 2 276-4, 70422-6 ####[facility] LABCLIA [id number] [place] [address] [place] .Auto Diffon 05-03-2024 Basophil, Absolute 0.1 10 3/mcL Normal 0.0-0.2 [facility] Comment on above: Performed By: #### B MP, TSH, FT4, GFR, FT3, VIDH #### [address] [address] #### PTH #### [address] [address] Basophils/100 WBC (Bld) 2.3 % Normal 0.0-2.5 [facility] Comment on above: Performed By: #### B MP, TSH, FT4, GFR, FT3, VIDH #### [address] [address] #### PTH #### [address] [address] Eosinophil, Absolute 0.3 10 3/mcL Normal 0.0-0.7 [facility] Comment on above: Performed By: #### B MP, TSH, FT4, GFR, FT3, VIDH #### [address] [address] #### PTH #### [address] [address] Eosinophils/100 WBC (Bld) 7.6 % High 0.0-7.0 [facility] Comment on above: Performed By: #### B MP, TSH, FT4, GFR, FT3, VIDH #### [address] [address] #### PTH #### [address] [address] Lymphocyte, Absolute 1.1 10 3/mcL Normal 0.9-4.3 [facility] Comment on above: Performed By: #### B MP, TSH, FT4, GFR, FT3, VIDH #### [place] [address] #### PTH #### [address] [address] Lymphocytes/100 WBC (Bld) 24.4 % Normal 20.0-40.0 [facility] Comment on above: Performed By: #### B MP, TSH, FT4, GFR, FT3, VIDH #### [place] [address] #### PTH #### [address] [address] Monocyte, Absolute 0.5 10 3/mcL Normal 0.1-1.4 [facility] Comment on above: Performed By: #### B MP, TSH, FT4, GFR, FT3, VIDH #### [place] [address] #### PTH #### [address] [address] Monocytes/100 WBC (Bld) 9.8 % Normal 2.0-13.0 [facility] Comment on above: Performed By: #### B MP, TSH, FT4, GFR, FT3, VIDH #### [place] [address] #### PTH #### [address] [address] Neutrophils/100 WBC (Bld) 55.9 % Normal 50.0-75.0 [facility] Comment on above: Performed By: #### B MP, TSH, FT4, GFR, FT3, VIDH #### [address] [address] #### PTH #### [address] [address] .GFRon 05-03-2024 GFR 83 ml/min/1.73sqm [facility] Comment on above: Result Comment: GFR Population [...] MP, TSH, FT4, GFR, FT3, VIDH #### [address] [address] #### PTH #### [address] [address] GFR Non- 69 ml/min/1.73sqm [facility] Comment on above: Result Comment: GFR Population [...] MP, TSH, FT4, GFR, FT3, VIDH #### [address] [address] #### PTH #### [address] [address] .NEUABSon 05-03-2024 Neutrophil, Absolute 2.6 10 3/mcL Normal 2.3-8.1 [facility] Comment on above: Performed By: #### B MP, TSH, FT4, GFR, FT3, VIDH #### [place] [address] #### PTH #### [place] [address] A1Con 05-03-2024 Glucose [Mass/Vol] 117 mg/dL Normal [facility] Comment on above: Result Comment: Valarie mated Average Glucose calculated by equation ((28.7xA1C)-46.7) Estimated average glucose (eAG) is a calculated value from Hemoglobin A1C and is collections representative of the average blood glucose level in the last 2-3 month period. Normal range: less than 114 mg/dL Performed By: #### B MP, TSH, FT4, GFR, FT3, VIDH #### [place] [address] #### PTH #### [place] [address] HbA1c (Bld) [Mass fraction] 5.7 % Normal 4.3-6.4 [facility] Comment on above: Performed By: #### B MP, TSH, FT4, GFR, FT3, VIDH #### [place] [address] #### PTH #### [place] [address] CBCon 05-03-2024 Erythrocyte distribution width (RBC) [Ratio] 17.0 % High 11.5-15.5 [facility] Comment on above: Performed By: #### B MP, TSH, FT4, GFR, FT3, VIDH #### [place] [address] #### PTH #### [place] [address] Hematocrit (Bld) [Volume fraction] 39.0 % Normal 34.0-46.0 [facility] Comment on above: Performed By: #### B MP, TSH, FT4, GFR, FT3, VIDH #### [place] [address] #### PTH #### [place] [address] Hgb 12.9 G/dL Normal 12.0-16.0 [facility] Comment on above: Performed By: #### B MP, TSH, FT4, GFR, FT3, VIDH #### [place] [address] #### PTH #### [place] [address] MCH (RBC) [Entitic mass] 29.4 pg Normal 27.0-33.0 [facility] Comment on above: Performed By: #### B MP, TSH, FT4, GFR, FT3, VIDH #### [place] [address] #### PTH #### [place] [address] MCHC 33.1 G/dL Normal 32.0-36.0 [facility] Comment on above: Performed By: #### B MP, TSH, FT4, GFR, FT3, VIDH #### [place] [address] #### PTH #### [place] [address] MCV (RBC) [Entitic vol] 88.7 fL Normal 80.0-99.0 [facility] Comment on above: Performed By: #### B MP, TSH, FT4, GFR, FT3, VIDH #### [place] [address] #### PTH #### [address] [address] Platelet 224 10 3/mcL Normal 150-450 [facility] Comment on above: Performed By: #### B MP, TSH, FT4, GFR, FT3, VIDH #### [address] [address] #### PTH #### [place] [address] Platelet mean volume (Bld) [Entitic vol] 9.4 fL Normal 6.6-10.5 [facility] Comment on above: Performed By: #### B MP, TSH, FT4, GFR, FT3, VIDH #### [place] [address] #### PTH #### [place] [address] RBC 4.40 10 6/mcL Normal 4.10-5.30 [facility] Comment on above: Performed By: #### B MP, TSH, FT4, GFR, FT3, VIDH #### [place] [address] #### PTH #### [place] [address] WBC 4.6 10 3/mcL Normal 4.5-10.8 [facility] Comment on above: Performed By: #### B MP, TSH, FT4, GFR, FT3, VIDH #### [place] [address] #### PTH #### [place] [address] CMPon 05-03-2024 Albumin Level 3.6 G/dL Normal 3.4-4.8 [facility] Comment on above: Performed By: #### B MP, TSH, FT4, GFR, FT3, VIDH #### [place] [address] #### PTH #### [place] [address] Albumin/Globulin [Mass ratio] 1.1 {ratio} Normal 1.1-2.5 [facility] Comment on above: Performed By: #### B MP, TSH, FT4, GFR, FT3, VIDH #### [place] [address] #### PTH #### [place] [address] ALP [Catalytic activity/Vol] 48 U/L Normal 40-135 [facility] Comment on above: Performed By: #### B MP, TSH, FT4, GFR, FT3, VIDH #### [place] [address] #### PTH #### [place] [address] ALT [Catalytic activity/Vol] 19 U/L Normal 14-59 [facility] Comment on above: Performed By: #### B MP, TSH, FT4, GFR, FT3, VIDH #### [place] [address] #### PTH #### [place] [address] AST [Catalytic activity/Vol] 16 U/L Normal 10-40 [facility] Comment on above: Performed By: #### B MP, TSH, FT4, GFR, FT3, VIDH #### [place] [address] #### PTH #### [place] [address] Bili Total 0.6 mg/dL Normal 0.2-1.0 [facility] Comment on above: Result Comment: Use of this assay is not recommended for patients undergoing treatment with eltrombopag due to the potential for falsely elevated results. Performed By: #### B MP, TSH, FT4, GFR, FT3, VIDH #### [place] [address] #### PTH #### [place] [address] BUN/Creatinine Ratio 12 ratio Normal 7-27 [facility] Comment on above: Performed By: #### B MP, TSH, FT4, GFR, FT3, VIDH #### [place] [address] #### PTH #### [address] [address] Calcium [Mass/Vol] 10.0 mg/dL Normal 8.4-10.2 [facility] Comment on above: Performed By: #### B MP, TSH, FT4, GFR, FT3, VIDH #### [place] [address] #### PTH #### [address] [address] Chloride [Moles/Vol] 104 mmol/L Normal 98-107 [facility] Comment on above: Performed By: #### B MP, TSH, FT4, GFR, FT3, VIDH #### [place] [address] #### PTH #### [address] [address] CO2 [Moles/Vol] 30 mmol/L Normal 23-31 [facility] Comment on above: Performed By: #### B MP, TSH, FT4, GFR, FT3, VIDH #### [place] [address] #### PTH #### [address] [address] Creatinine [Mass/Vol] 0.83 mg/dL Normal 0.55-1.02 [facility] Comment on above: Result Comment: Test ing performed on Siemens Dimension EXL analyzer using a modified kinetic Tere technique. Performed By: #### B MP, TSH, FT4, GFR, FT3, VIDH #### [place] [address] #### PTH #### [address] [address] Electrolyte Balance 8.0 mEq/L Normal 4.0-15.0 [facility] Comment on above: Performed By: #### B MP, TSH, FT4, GFR, FT3, VIDH #### [address] [address] #### PTH #### [address] [address] Globulin 3.3 G/dL Normal [facility] Comment on above: Performed By: #### B MP, TSH, FT4, GFR, FT3, VIDH #### [place] [address] #### PTH #### [address] [address] Glucose [Mass/Vol] 93 mg/dL Normal 80-115 [facility] Comment on above: Performed By: #### B MP, TSH, FT4, GFR, FT3, VIDH #### [place] [address] #### PTH #### [place] [address] Potassium [Moles/Vol] 5.1 mmol/L Normal 3.5-5.1 [facility] Comment on above: Performed By: #### B MP, TSH, FT4, GFR, FT3, VIDH #### [place] [address] #### PTH #### [place] [address] Sodium [Moles/Vol] 142 mmol/L Normal 136-145 [facility] Comment on above: Performed By: #### B MP, TSH, FT4, GFR, FT3, VIDH #### [place] [address] #### PTH #### [address] [address] Total Protein 6.9 G/dL Normal 6.4-8.2 [facility] Comment on above: Performed By: #### B MP, TSH, FT4, GFR, FT3, VIDH #### [place] [address] #### PTH #### [place] [address] Urea nitrogen [Mass/Vol] 10 mg/dL Normal 7-18 [facility] Comment on above: Performed By: #### B MP, TSH, FT4, GFR, FT3, VIDH #### [address] [address] #### PTH #### [place] [address] FT3on 05-03-2024 Free T3 [Mass/Vol] 2.57 pg/mL Normal 2.30-4.00 [facility] Comment on above: Performed By: #### B MP, TSH, FT4, GFR, FT3, VIDH #### [address] [address] #### PTH #### [place] [address] FT4on 05-03-2024 Free T4 [Mass/Vol] 0.96 ng/dL Normal 0.76-1.46 [facility] Comment on above: Performed By: #### B MP, TSH, FT4, GFR, FT3, VIDH #### [place] [address] #### PTH #### [place] [address] LABORATORYOrdered By: SYSTEM SYSTEM on 05-03-2024 Albumin [...] calculated value from Hemoglobin A1C and is collections representative of the average blood glucose level [...] 05-03-2024 Cholesterol [Mass/Vol] 198 mg/dL Normal 0-200 [facility] Comment on above: Result Comment: Chol esterol Reference Interval: Less than 200 Desirable 200-239 Borderline high risk 240 and above High risk Performed By: #### B MP, TSH, FT4, GFR, FT3, VIDH #### [address] [address] #### PTH #### [address] [address] Cholesterol in HDL [Mass/Vol] 79 mg/dL High 40-60 [facility] Comment on above: Performed By: #### B MP, TSH, FT4, GFR, FT3, VIDH #### [address] [address] #### PTH #### [address] [address] Cholesterol in LDL [Mass/Vol] 108 mg/dL Normal 0-130 [facility] Comment on above: Performed By: #### B MP, TSH, FT4, GFR, FT3, VIDH #### [address] [address] #### PTH #### [place] [address] Triglyceride [Mass/Vol] 57 mg/dL Normal 0-150 [facility] Comment on above: Result Comment: Trig lyceride Reference Interval: Less than 150 Normal 150-199 Borderline high risk 200-499 High risk 500 or higher Very high risk Performed By: #### B MP, TSH, FT4, GFR, FT3, VIDH #### [address] [address] #### PTH #### [place] [address] PTHon 05-03-2024 PTH, Intact 69.4 pg/mL Normal 18.5-88.0 [facility] Comment on above: Performed By: #### B MP, TSH, FT4, GFR, FT3, VIDH #### [address] [address] #### PTH #### [place] [address] TSHon 05-03-2024 TSH Qn m[IU]/L Low 0.36-3.74 [facility] Comment on above: Performed By: #### B MP, TSH, FT4, GFR, FT3, VIDH #### [address] [address] #### PTH #### [place] [address] VIDHon 05-03-2024 Vit. D 25-Hydroxy 44.0 ng/mL Normal [facility] Comment on above: Result Comment: Inte rpretive Values Based on Total 25(OH) Vitamin D: Deficient <20 ng/mL Insufficient 20 - <30 ng/mL Sufficient 30-100 ng/mL Performed By: #### B MP, TSH, FT4, GFR, FT3, VIDH #### [address] [address] #### PTH #### [place] [address] Final Surgical Pathology Rep [facility] 03-07-2024 Final Surgical Pathology Report . Pathology Reports Accession: Collected Date/Time: Received Date/Time: Pathologist: [id number] 03/06/2024 11:55 EST 03/06/2024 13:51 MD RAVEN VAN Final Surgical Pathology Report DIAGNOSIS: DUODENUM, BIOPSY: - MILD PEPTIC DUODENITIS - NEGATIVE FOR CELIAC DISEASE CLINICAL INFORMATION: Procedure: ESOPHAGOGASTRODUODENOSCOPY WITH BX Preoperative diagnosis: IRON DEFICIENCY ANEMIA Postoperative diagnosis: IRON DEFICIENCY ANEMIA SPECIMEN: A DUODENAL BX R/O CELIAC DISEASE GROSS DESCRIPTION: All parts labelled with patient name and [id number] Received in formalin labeled duodenal biopsy are multiple garcía-pink tissue fragments aggregating 1.1 x 0.2 x 0.1 cm greatest dimension. Smallest fragments may not survive processing. TS-1 Marci Martinez, Grossing Web Developer Programmer/ Dr. Satish Westfall, Pathologist Performed by Marci Martinez MICROSCOPIC DESCRIPTION: The microscopic examination is performed, except in the case of Gross Only. Electronically Signed by Pathology Report verified by [facility] RAVEN SULLIVAN MD Sign out Date: 03/07/2024 08:22 Performing Lab: [address] Pathology Dept Disclaimer If ancillary studies were utilized, the following Laboratory Developed Test (LDT) disclaimer will apply: Under CLIA requirements, [facility] is qualified to perform high complexity testing. For all ancillary stains, positive and negative controls stain appropriately. Performance characteristics of immunohistochemical and chromogenic in-situ hybridization tests have been determined by [facility]. These tests are used for clinical purposes, They should not be regarded as investigational or for research. Normal [facility] CNOVSPon 02-28-2024 CNOVSP Visit (SP) Office (H EMAWS) BELLA MORILLO ([id number]) 1955 F Date Time Provider Department 11/4/24 9:30 AM TREATMENT RM 15 [facility] During your visit today, we recorded the following information about you: Temperature Pulse Blood pressure Weight 98.2 degrees 63/minute 120/73 71.2 kg Referring Provider: LINDSEY ZUNIGA [[id number]] Allergies As of Date: 02/28/2024 Noted Allergy [...] dietary iron intake [D50.8] Order(s):TREATMENT PARAMETER-NOT NEEDED [[id number]] Order #: [id number]: 1 BCN NURSING COMMUNICATION [[id number]] Order #: [id number]: 1 STANDING BCN NURSING COMMUNICATION [[id number]] Order #: [id number]: 1 STANDING [] iron sucrose 200 mg injection (VENOFER)Disp: Rfl: NaCl 0.9% iv infusionDisp: Rfl: diphenhydrAMINE 50 mg injection (BENADRYL)Disp: Rfl: hydrocortisone sodium succinate (PF) 100 mg injection (Solu-CORTEF)Disp: Rfl: EPINEPHrine HCl (PF) 1 mg/mL (1 mL) 0.3 mg injectionDisp: Rfl: BCN NURSING COMMUNICATION [[id number]] Order #: [id number]: 1 STANDING Prescriptions as of 02/28/2024 - [...] [Z86.79] 09/18/2020 (more content not included)... Normal [facility] CNOVSPon 02-24-2024 CNOVSP Visit (SP) Office (H EMAWS) BELLA MORILLO ([id number]) 1955 F Date Time Provider Department 02/24/24 9:00 AM TREATMENT RM 16 [facility] During your visit today, we recorded the following information about you: Temperature Pulse Respiration Blood pressure 97.9 degrees 62/minute 18/minute 129/76 Referring Provider: LINDSEY ZUNIGA [[id number]] Allergies As of Date: 02/24/2024 Noted Allergy [...] dietary iron intake [D50.8] Order(s):TREATMENT PARAMETER-NOT NEEDED [[id number]] Order #: [id number]: 1 BCN NURSING COMMUNICATION [[id number]] Order #: [id number]: 1 STANDING BCN NURSING COMMUNICATION [[id number]] Order #: [id number]: 1 STANDING [] iron sucrose 200 mg injection (VENOFER)Disp: Rfl: NaCl 0.9% iv infusionDisp: Rfl: diphenhydrAMINE 50 mg injection (BENADRYL)Disp: Rfl: hydrocortisone sodium succinate (PF) 100 mg injection (Solu-CORTEF)Disp: Rfl: EPINEPHrine HCl (PF) 1 mg/mL (1 mL) 0.3 mg injectionDisp: Rfl: BCN NURSING COMMUNICATION [[id number]] Order #: [id number]: 1 STANDING Prescriptions as of 02/24/2024 - [...] [R94*10/08/2021 Degeneration (more content not included)... Normal [facility] Celiac Disease Profileon ENDOMYSIAL IGA Negative Normal Negative [facility] Comment on above: Performed By: #### L 400.0001 #### [facility] [address] [place], [address] IMMUNOGLOB A QN 199 mg/dL Normal 87-352 [facility] Comment on above: Result Comment: Perf ormed at: CB - [facility] [address] [id number] Social Security Benefits Interviewer: Enrique Tariq PhD, Phone: [phone] Performed By: #### L 400.0001 #### [facility] [address] [place], [place], [address] tTG IGA <2 Normal 0-3 [facility] Comment on above: Result Comment: Nega tive 0 - 3 Weak Positive 4 - 10 Positive >10 Tissue Transglutaminase (tTG) has been identified as the endomysial antigen. Studies have demonstr- ated that endomysial IgA antibodies have over 99% specificity for gluten sensitive enteropathy. Performed By: #### L 400.0001 #### [facility] [address] [place], [address] [facility] BELLA MORILLO ([id number]) 1955 F Date Time Provider Department 02/23/24 VERONICA JAY During your visit today, we recorded the following information about you: Veronica Jay LISW 02/23/2024 11:34 AM Signed SOCIAL WORK FOLLOW UP NOTE: [facility] Pt noted on [facility] 1st time treatment report. Pt has a [...] syndrome [R31.9] 10/08/2021 Hiatal hernia [K44.9] 10/08/2021 half-way current use of antiarrhythmic drug [Z*06/14/2023 Iron 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 *02/03/2024 Encounter Status:Closed by VERONICA JAY on 02/23/24 Normal [facility] Ferritinon 02-23-2024 Ferritin [Mass/Vol] 168 ng/mL Normal 8-252 [facility] Comment on above: Order Comment: BOBO Performed By: #### L 503.6150, L503.6550, L3410.2400, L100.0600 #### [facility] [address] [place], [address] HH, Hemoglobin AND Hematocri ton 02-23-2024 Hematocrit (Bld) [Volume fraction] 34.6 % Low 37-47 [facility] Comment on above: Performed By: #### L 503.6150, L503.6550, L3410.2400, L100.0600 #### [facility] [address] [place], [address] Hemoglobin (Bld) [Mass/Vol] 10.5 g/dL Low 12.0-15.0 [facility] Comment on above: Performed By: #### L 503.6150, L503.6550, L3410.2400, L100.0600 #### [facility] [address] [place], [address] Ironon 02-23-2024 Iron [Mass/Vol] 76 ug/dL Normal 50-170 [facility] Comment on above: Order Comment: BOBO Performed By: #### L 503.6150, L503.6550, L3410.2400, L100.0600 #### [facility] [address] [place], [address] CNOVSPon 02-21-2024 [facility]OVS [facility] ([id number]) 1955 F Date Time Provider Department 02/21/24 9:00 AM TREATMENT RM 16 [facility] During your visit today, we recorded the following information about you: Temperature Pulse Respiration Blood pressure 97.8 degrees 58/minute 18/minute 124/74 Referring Provider: LINDSEY ZUNIGA [[id number]] Allergies As of Date: 02/21/2024 Noted Allergy [...] dietary iron intake [D50.8] Order(s):TREATMENT PARAMETER-NOT NEEDED [1878791] Order #: [id number]: 1 BCN NURSING COMMUNICATION [[id number]] Order #: [id number]: 1 STANDING BCN NURSING COMMUNICATION [9990430] Order #: [id number]: 1 STANDING [] iron sucrose 200 mg injection (VENOFER)Disp: Rfl: NaCl 0.9% iv infusionDisp: Rfl: diphenhydrAMINE 50 mg injection (BENADRYL)Disp: Rfl: hydrocortisone sodium succinate (PF) 100 mg injection (Solu-CORTEF)Disp: Rfl: EPINEPHrine HCl (PF) 1 mg/mL (1 mL) 0.3 mg injectionDisp: Rfl: BCN NURSING COMMUNICATION [[id number]] Order #: [id number]: 1 STANDING Prescriptions as of 02/21/2024 - [...] [R94*10/08/2021 Degeneration (more content not included)... Normal [facility] CNOVSPon 02-17-2024 CNOVSP Visit (SP) Office (H EMAWS) BELLA MORILLO ([id number]) 1955 F Date Time Provider Department 02/17/24 10:30 AM TREATMENT RM 15 [facility] During your visit today, we recorded the following information about you: Temperature Pulse Respiration Blood pressure 97.5 degrees 69/minute 16/minute 116/69 Referring Provider: LINDSEY ZUNIGA [[id number]] Allergies As of Date: 02/17/2024 Noted Allergy [...] 0.3 mg injectionDisp: Rfl: BCN NURSING COMMUNICATION [[id number]] Order #: [id number]: 1 STANDING Prescriptions as of 02/17/2024 - [...] Hiatal hernia [K44.9] 10/08/2021 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 [ (more content not included)... Normal [facility] Valerie 02-16-2024 LISA Telephone (HEMAWS) BELLA MORILLO ([id number]) 1955 F Date Time Provider Department 02/16/24 [...] Hiatal hernia [K44.9] 10/08/2021 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 [Z*06/14/2023 Iron 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 *02/03/2024 Encounter Status:Closed by SWETA ZAVALETA on 02/16/24 [facility] Valerie 02-11-2024 CNPN Telephone (PFS) BELLA MORILLO ([id number]) 1955 F Date Time Provider Department 02/11/24 [...] syndrome [R31.9] 10/08/2021 Hiatal hernia [K44.9] 10/08/2021 half-way current use of antiarrhythmic drug [Z*06/14/2023 Iron 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 *02/03/2024 Encounter Status:Closed by SIMEON CHRIS on 02/11/24 Normal [facility] FERRITINon 02-02-2024 Ferritin [Mass/Vol] 23.7 ng/mL 14.7 - 205.1 ng/mL [facility] Iron and Iron binding capaci ty panelon 02-02-2024 Interpretation and review of laboratory results Abnormal [facility] Iron [Mass/Vol] 36 ug/dL Low 41 - 186 ug/dL [facility] Iron binding capacity [Mass/Vol] 397 ug/dL High 232 - 386 ug/dL [facility] Iron/TIBC [Molar ratio] 9.1 % Low 15.0 - 57.0 % [facility] LABORATORYOrdered By: SYSTEM SYSTEM on 02-02-2024 Free T3 [Mass/Vol] 6.53 pg/mL High 2.30 - 4.00 pg/mL AO ADM SS Free T4 [Mass/Vol] 0.96 ng/dL Normal 0.76 - 1.46 ng/dL AO ADM SS TSH Qn 0.01 m[IU]/L Low 0.36 - 3.74 mcIU/mL AO ADM SS No Panel Informationon 02-01 Interpretation and review of laboratory results Normal [facility] VITAMIN B12on 02-02-2024 Cobalamin (Vitamin B12) [Mass/Vol] 760 pg/mL 232 - 1245 pg/mL [facility] CBC W Auto Differential pane l (Bld)on 02-01-2024 Basophils (Bld) [#/Vol] 0.14 10*3/uL High NINF [facility] Basophils/100 WBC (Bld) 2.2 % [facility] Differential cell count method Nom (Bld) Auto [facility] Eosinophils (Bld) [#/Vol] 0.88 10*3/uL High [facility] Eosinophils/100 WBC (Bld) 13.9 % [facility] Erythrocyte distribution width (RBC) [Ratio] 18.4 % High 11.5 - 15.0 % [facility] Hematocrit (Bld) [Volume fraction] 33.7 % Low 36.0 - 46.0 % [facility] Hemoglobin (Bld) [Mass/Vol] 10.8 g/dL Low 11.5 - 15.5 g/dL [facility] Immature granulocytes (Bld) [#/Vol] [facility] Immature granulocytes/100 WBC (Bld) 0.2 % [facility] Interpretation and review of laboratory results Abnormal [facility] Lymphocytes (Bld) [#/Vol] 1.52 10*3/uL [facility] Lymphocytes/100 WBC (Bld) 23.9 % [facility] MCH (RBC) [Entitic mass] 26.4 pg 26.0 - 34.0 pg [facility] MCHC (RBC) [Mass/Vol] 32.0 g/dL 30.5 - 36.0 g/dL [facility] MCV (RBC) [Entitic vol] 82.4 fL 80.0 - 100.0 fL [facility] Monocytes (Bld) [#/Vol] 0.80 10*3/uL [facility] Monocytes/100 WBC (Bld) 12.6 % [facility] Neutrophils (Bld) [#/Vol] 3.00 10*3/uL [facility] Neutrophils/100 WBC (Bld) 47.2 % [facility] Nucleated RBC (Bld) [#/Vol] [facility] Nucleated RBC/100 WBC (Bld) [Ratio] 0.0 % /100 WBC [facility] Platelet mean volume (Bld) [Entitic vol] 11.4 fL 9.0 - 12.7 fL [facility] Platelets (Bld) [#/Vol] 272 10*3/uL [facility] RBC (Bld) [#/Vol] 4.09 10*6/uL 3.90 - 5.20 m/uL [facility] WBC (Bld) [#/Vol] 6.35 10*3/uL [facility] Comprehensive metabolic 2000 panelOrdered By: Oksana Queen on 02-01-2024 Albumin [Mass/Vol] 4.2 g/dL 3.9 - 4.9 g/dL [facility] ALP [Catalytic activity/Vol] 44 U/L 34 - 123 U/L [facility] ALT [Catalytic activity/Vol] 10 U/L 7 - 38 U/L [facility] Anion gap [Moles/Vol] 13 mmol/L 8 - 15 mmol/L [facility] AST [Catalytic activity/Vol] 17 U/L 13 - 35 U/L [facility] Bilirubin [Mass/Vol] 0.4 mg/dL 0.2 - 1 .3 mg/dL [facility] Calcium [Mass/Vol] 9.6 mg/dL 8.5 - 10. 2 mg/dL [facility] Chloride [Moles/Vol] 103 mmol/L 98 - 10 7 mmol/L [facility] CO2 [Moles/Vol] 24 mmol/L 22 - 30 mmol/L [facility] Creatinine [Mass/Vol] 0.93 mg/dL 0.58 - 0.96 mg/dL [facility] GFR/1.73 sq M.predicted among non-blacks MDRD (S/P/Bld) [Vol rate/Area] 68 mL/min/{1.73_m2} - PINF [facility] Comment on above: Estimated Glomerular Filtration Rate [...] [Mass/Vol] 84 mg/dL 74 - 99 mg/dL [facility] Comment on above: The [place] [employer] Association (ADA) provides guidance for [...] Standards of Medical Care in Diabetes 2016, [place] [employer]. Diabetes Care. 2016.39(Suppl 1). Interpretation and review of laboratory results Normal [facility] Potassium [Moles/Vol] 4.2 mmol/L 3.7 - 5.1 mmol/L [facility] Protein [Mass/Vol] 7.3 g/dL 6.3 - 8.0 g/dL [facility] Sodium [Moles/Vol] 140 mmol/L 136 - 144 mmol/L [facility] Urea nitrogen [Mass/Vol] 17 mg/dL 7 - 21 mg/dL [facility] CEFTRIAXONE:SUSC:PT:ISOLATE: ORDQN:MICon 01-28-2024 cefTRIAXone TRUDY [Susc] >100,000 cfu/ml E scherichia coli [facility] Work Phone: cefTRIAXone TRUDY [Susc]on Escherichia coli Escherichia coli [facility] Work Phone: Urine Cultureon 12-24-2023 [facility] Streptococcus agalac tiae (B) [place] Count 25,000-50,000 Streptococcus agalactiae (B): REACTION Ampicillin Islt TRUDY <=0.25 S Penicillin G Islt TRUDY <=0.06 S cefTRIAXone Islt TRUDY <=0.12 S Clindamycin Islt TRUDY >=1 R Clindamycin.induced Susc Islt NEG Linezolid Islt TRUDY <=2 S Vancomycin Islt TRUDY 0.[address] [facility] Comment on above: Performed By: #### M 100.8798 #### [facility] [address] [facility] [place], [address] LABORATORYOrdered By: SYSTEM SYSTEM on 12-23-2023 Basophil, [...] Absolute Lymph 0.31 X10 3/uL Low 0.83-4.51 [facility] Comment on above: Performed By: #### L 100.0100, L500.4050 #### [facility] [address] [place], [address] Absolute Neut 9.3 X10 3/uL High 2.0-7.7 [facility] Comment on above: Performed By: #### L 100.0100, L500.4050 #### [facility] [address] [place], [address] Basophils/100 WBC (Bld) 0.6 % Normal 0-1 [facility] Comment on above: Performed By: #### L 100.0100, L500.4050 #### [facility] [address] [place], [address] Eosinophils/100 WBC (Bld) 0.8 % Normal 0-5 [facility] Comment on above: Performed By: #### L 100.0100, L500.4050 #### [facility] [address] [place], [address] Erythrocyte distribution width (RBC) [Ratio] 16.8 % High 11.6-14.6 [facility] Comment on above: Performed By: #### L 100.0100, L500.4050 #### [facility] [address] [place], [address] Hematocrit (Bld) [Volume fraction] 33.0 % Low 37-47 [facility] Comment on above: Performed By: #### L 100.0100, L500.4050 #### [facility] [address] [place], [address] Hemoglobin (Bld) [Mass/Vol] 10.6 g/dL Low 12.0-15.0 [facility] Comment on above: Performed By: #### L 100.0100, L500.4050 #### [facility] [address] [place], [address] IG% 0.500 Normal 0.0-0.9 [facility] Comment on above: Result Comment: IG% - Immature Granulocytes (promyelocytes, myelocytes and metamyelocytes) > 1% indicates that a LEFT SHIFT is Present. Performed By: #### L 100.0100, L500.4050 #### [facility] [address] [place], [address] Lymphocytes/100 WBC (Bld) 2.9 % Low 19-41 [facility] Comment on above: Performed By: #### L 100.0100, L500.4050 #### [facility] [address] [place], [address] MCH (RBC) [Entitic mass] 25.7 pg Low 27.0-32.0 [facility] Comment on above: Performed By: #### L 100.0100, L500.4050 #### [facility] [address] [place], [address] MCHC (RBC) [Mass/Vol] 32.1 g/dL Normal 32-36 [facility] Comment on above: Performed By: #### L 100.0100, L500.4050 #### [facility] [address] [place], [address] MCV (RBC) [Entitic vol] 79.9 fL Low 81-99 [facility] Comment on above: Performed By: #### L 100.0100, L500.4050 #### [facility] [address] [place], [address] Monocytes/100 WBC (Bld) 8.7 % Normal 0-10 [facility] Comment on above: Performed By: #### L 100.0100, L500.4050 #### [facility] [address] [place], [address] Neutrophils/100 WBC (Bld) 86.5 % High 47-70 [facility] Comment on above: Performed By: #### L 100.0100, L500.4050 #### [facility] [address] [place], [address] Nucleated RBC (Bld) [#/Vol] 0 10*3/uL Normal 0-5 [facility] Comment on above: Performed By: #### L 100.0100, L500.4050 #### [facility] [address] [place], [address] Platelet mean volume (Bld) [Entitic vol] 10.9 fL Normal 6.2-12.0 [facility] Comment on above: Performed By: #### L 100.0100, L500.4050 #### [facility] [address] [place], [address] Platelets (Bld) [#/Vol] 193 10*3/uL Normal 150-450 [facility] Comment on above: Performed By: #### L 100.0100, L500.4050 #### [facility] [address] [place], [address] RBC (Bld) [#/Vol] 4.13 10*6/uL Low 4.2-5.4 [facility] Comment on above: Performed By: #### L 100.0100, L500.4050 #### [facility] [address] [place], [address] RDW SD 48.6 fl High 35.1-43.9 [facility] Comment on above: Performed By: #### L 100.0100, L500.4050 #### [facility] [address] [place], [address] WBC (Bld) [#/Vol] 10.8 10*3/uL Normal 4.4-11.0 [facility] Comment on above: Performed By: #### L 100.0100, L500.4050 #### [facility] [address] [place], [address] Comprehensive Metabolic Prof ilon 12-20-2023 Albumin [Mass/Vol] 3.4 g/dL Normal 3.2-5.0 [facility] Comment on above: Performed By: #### L 100.0100, L500.4050 #### [facility] [address] [place], [address] Albumin/Globulin [Mass ratio] 0.9 {ratio} Normal 0.9-2.4 [facility] Comment on above: Performed By: #### L 100.0100, L500.4050 #### [facility] [address] [place], [address] ALK P 52 U/L Normal 45-117 [facility] Comment on above: Performed By: #### L 100.0100, L500.4050 #### [facility] [address] [place], [address] ALT [Catalytic activity/Vol] 21 U/L Normal 13-56 [facility] Comment on above: Performed By: #### L 100.0100, L500.4050 #### [facility] [address] [place], [address] AST [Catalytic activity/Vol] 20 U/L Normal 15-37 [facility] Comment on above: Performed By: #### L 100.0100, L500.4050 #### [facility] [address] [place], [address] Bilirubin [Mass/Vol] 0.60 mg/dL Normal 0.20-1.00 [facility] Comment on above: Result Comment: For patients on eltrombopag therapy, use of Dimension [place] TBIL is not recommended. Performed By: #### L 100.0100, L500.4050 #### [facility] [address] [place], [address] BUN/CRE 19.8 RATIO Normal 10-20 [facility] Comment on above: Performed By: #### L 100.0100, L500.4050 #### [facility] [address] [place], [address] CA,Total 9.1 mg/dL Normal 8.5-10.1 [facility] Comment on above: Performed By: #### L 100.0100, L500.4050 #### [facility] [address] [place], [address] Chloride [Moles/Vol] 103 mmol/L Normal 98-107 [facility] Comment on above: Performed By: #### L 100.0100, L500.4050 #### [facility] [address] [place], [address] CO2 [Moles/Vol] 27.0 mmol/L Normal 21.0-32.0 [facility] Comment on above: Performed By: #### L 100.0100, L500.4050 #### [facility] [address] [place], [address] Creatinine [Mass/Vol] 1.16 mg/dL High 0.55-1.02 [facility] Comment on above: Result Comment: The validity of the calculated GFR GFRAA in patients over 70 years has not been determined. Clinical correlation is essential. Performed By: #### L 100.0100, L500.4050 #### [facility] [address] [place], [address] ECRCL 46.39 ml/min Normal [facility] Comment on above: Performed By: #### L 100.0100, L500.4050 #### [facility] [address] [place], [address] EST GFR - AA 60 mL/min Normal >60 [facility] Comment on above: Result Comment: Afri can [place] Islander GFR Calc Performed By: #### L 100.0100, L500.4050 #### [facility] [address] [place], [address] GAP 7 Normal 5-15 [facility] Comment on above: Performed By: #### L 100.0100, L500.4050 #### [facility] [address] [place], [address] GFR/1.73 sq M.predicted among non-blacks MDRD (S/P/Bld) [Vol rate/Area] 50 mL/min/{1.73_m2} Low >60 [facility] Comment on above: Result Comment: Non- GFR Calc Performed By: #### L 100.0100, L500.4050 #### [facility] [address] [place], [address] Globulin (S) [Mass/Vol] 3.9 g/dL Normal 2.2-4.2 [facility] Comment on above: Performed By: #### L 100.0100, L500.4050 #### [facility] [address] [place], [address] Glucose [Mass/Vol] 115 mg/dL High 74-106 [facility] Comment on above: Result Comment: Fast ing Glucose result from 100 to 125 mg/dL suggests IMPAIRED HOMEOSTASIS per A.D.A. criteria. Performed By: #### L 100.0100, L500.4050 #### [facility] [address] [place], [address] Potassium [Moles/Vol] 4.2 mmol/L Normal 3.5-5.1 [facility] Comment on above: Performed By: #### L 100.0100, L500.4050 #### [facility] [address] [place], [address] Sodium [Moles/Vol] 137 mmol/L Normal 136-145 [facility] Comment on above: Performed By: #### L 100.0100, L500.4050 #### [facility] [address] [place], [address] T PROT 7.3 g/dL Normal 6.4-8.2 [facility] Comment on above: Performed By: #### L 100.0100, L500.4050 #### [facility] [address] [place], [address] Urea nitrogen [Mass/Vol] 23 mg/dL High 7-18 [facility] Comment on above: Performed By: #### L 100.0100, L500.4050 #### [facility] [address] [place], [address] Emergency Department Summary on 12-20-2023 Emergency Department Summary [facility] Medical Records Department [address] [place] [address] Emergency Department Summary 12/20/23 MR#: [id number] Acct: [id number] Name: BELLA MORILLO BRIEN Rep #: [id number] : 1955 68 From: Michael Harp DO [...] and therefore she comes in for evaluation [facility] Medical History (Updated 12/21/23 @ 02:59 by [...] eye vitamin 06/11/21 Unknown History mg-copper 1 iz-bzhulm-yameko capsule (PreserVision AREDS-2) acetaminophen 500 mg tablet [...] HEENT Narr (more content not included)... Normal [facility] Lipaseon 12-20-2023 Lipase [Catalytic activity/Vol] 29 U/L Normal 13-75 [facility] Comment on above: Result Comment: Raiza reese note: LIPASE revised reference range effective 22. New Lipase methodology. Expected to produce lower values than the previous assay method. NEW Reference Range: 13 - 75 U/L Performed By: #### L 501.2450 #### [facility] [address] [place], [address] M100.678on 12-20-2023 M100.678 SARS-CoV-2 (COVID 19 ) Negative INFLUENZA A Negative INFLUENZA B Negative RSV PCR Negative Normal [facility] Comment on above: Performed By: #### M 100.678 #### [facility] [address] [place], [address] Urinalysis, Completeon 12-19 BACTERIA 1+ /hpf Normal None Seen [facility] Comment on above: Order Comment: DRISS CTOR TO SPECIFY Performed By: #### L 400.0001 #### [facility] [place], [address] Mucus Ql (Urine sed) 1+ /hpf Normal [facility] Comment on above: Order Comment: DRISS CTOR TO SPECIFY Performed By: #### L 400.0001 #### [facility] [address] [place], [address] RBC 0-5 SEEN Normal 0-5 [facility] Comment on above: Order Comment: DRISS CTOR TO SPECIFY Performed By: #### L 400.0001 #### [facility] [address] [place], [address] WBC 10-25 SEEN Normal 0-5 [facility] Comment on above: Order Comment: DRISS CTOR TO SPECIFY Performed By: #### L 400.0001 #### [facility] [address] [place], [address] EPI,SQUAMOUS 0 SEEN Normal 5-10 [facility] Comment on above: Order Comment: DRISS CTOR TO SPECIFY Performed By: #### L 400.0001 #### [facility] [address] [place], [address] UA DIP, URINE (POC)on 2023 BILIRUBIN UA (POCT) Negative Negative [facility] CLARITY UA (POCT) Clear [facility] COLOR UA (POCT) Dark yellow [facility] GLUCOSE UA (POCT) 100 mg/dL Abnormal Negative [facility] Hemoglobin Ql (U) Trace-intact Abnormal Negative [facility] Interpretation and review of laboratory results Abnormal [facility] KETONE UA (POCT) 15 mg/dL Abnormal Negative [facility] LEUKOCYTES UA (POCT) Moderate Abnormal Negative [facility] NITRITE UA (POCT) Positive Abnormal Negative [facility] PH UA (POCT) 6.0 4.5 - 8.0 [facility] Protein Ql (U) 30 mg/dL Abnormal Negative [facility] SPECIFIC GRAVITY UA (POCT) 1.020 1.005 - 1.030 [facility] UROBILINOGEN UA (POCT) 1.0 Melody l E.U./dL [facility] [address] [place] [address], [address] [place] [address] POINT OF CARE [facility] FT3on 12-01-2023 Free T3 [Mass/Vol] 1.56 pg/mL Low 2.30-4.00 [facility] [place] Comment on above: Performed By: #### F T3, FT4, TSH #### [place] [address] [address] FT4on 12-01-2023 Free T4 [Mass/Vol] 0.73 ng/dL Low 0.76-1.46 [facility] Comment on above: Performed By: #### F T3, FT4, TSH #### Corinne [address] [address] TSHon 12-01-2023 TSH Qn 1.33 m[IU]/L Normal 0.36-3.74 [facility] ([place]) Comment on above: Performed By: #### F T3, FT4, TSH #### [address] [address] .Auto Diffon 10-11-2023 Basophil, Absolute 0.1 10 3/mcL Normal 0.0-0.2 [facility] ([place] Comment on above: Performed By: #### A 1C, ADIFF, CMP, CBC, FES, GFR, LIPID, ANEU, FERR #### [address] [address] #### HCV1 #### [address] [address] Basophils/100 WBC (Bld) 2.2 % Normal 0.0-2.5 [facility] ([place] Comment on above: Performed By: #### A 1C, ADIFF, CMP, CBC, FES, GFR, LIPID, ANEU, FERR #### [address] [address] #### HCV1 #### [address] [address] Eosinophil, Absolute 0.5 10 3/mcL High 0.0-0.4 [facility] ([place]) Comment on above: Performed By: #### A 1C, ADIFF, CMP, CBC, FES, GFR, LIPID, ANEU, FERR #### [address] [address] #### HCV1 #### [address] [address] Eosinophils/100 WBC (Bld) 9.6 % High 0.0-7.0 [facility] ([place]) Comment on above: Performed By: #### A 1C, ADIFF, CMP, CBC, FES, GFR, LIPID, ANEU, FERR #### [address] [address] #### HCV1 #### [address] [address] Lymphocyte, Absolute 1.2 10 3/mcL Normal 0.8-3.9 [facility] ([place] Comment on above: Performed By: #### A 1C, ADIFF, CMP, CBC, FES, GFR, LIPID, ANEU, FERR #### [address] [address] #### HCV1 #### [address] [address] Lymphocytes/100 WBC (Bld) 21.5 % Normal 10.0-50.0 [facility] ([place] Comment on above: Performed By: #### A 1C, ADIFF, CMP, CBC, FES, GFR, LIPID, ANEU, FERR #### [address] [address] #### HCV1 #### [address] [address] Monocyte, Absolute 0.6 10 3/mcL Normal 0.2-1.0 [facility] ([place] Comment on above: Performed By: #### A 1C, ADIFF, CMP, CBC, FES, GFR, LIPID, ANEU, FERR #### [address] [address] #### HCV1 #### [address] [address] Monocytes/100 WBC (Bld) 11.0 % Normal 1.7-13.0 [facility] ([place] Comment on above: Performed By: #### A 1C, ADIFF, CMP, CBC, FES, GFR, LIPID, ANEU, FERR #### [address] [address] #### HCV1 #### [address] [address] Neutrophils/100 WBC (Bld) 55.7 % Normal 37.0-80.0 [facility] ([place] Comment on above: Performed By: #### A 1C, ADIFF, CMP, CBC, FES, GFR, LIPID, ANEU, FERR #### [address] [address] #### HCV1 #### [address] [address] .GFRon 10-11-2023 GFR 60 ml/min/1.73sqm Normal [facility] ([place] Comment on above: Result Comment: GFR Population [...] By: #### F T3, FT4, TSH #### [address] [address] GFR Non- 50 ml/min/1.73sqm Normal [facility] ([place] Comment on above: Result Comment: GFR Population [...] By: #### F T3, FT4, TSH #### [address] [address] .NEUABSon 10-11-2023 Neutrophil, Absolute 3.0 10 3/mcL Normal 2.9-6.2 [facility] ([place]) Comment on above: Performed By: #### A 1C, ADIFF, CMP, CBC, FES, GFR, LIPID, ANEU, FERR #### [address] [address] #### HCV1 #### [address] [address] A1Con 10-11-2023 HbA1c (Bld) [Mass fraction] 5.3 % Normal 4.3-6.4 [facility] ([place] Comment on above: Performed By: #### A 1C, ADIFF, CMP, CBC, FES, GFR, LIPID, ANEU, FERR #### [address] [address] #### HCV1 #### [address] [address] CBCon 10-11-2023 Erythrocyte distribution width (RBC) [Ratio] 16.5 % High 11.5-14.5 [facility] ([place]) Comment on above: Performed By: #### A 1C, ADIFF, CMP, CBC, FES, GFR, LIPID, ANEU, FERR #### [place] [address] #### HCV1 #### [place] [address] Hematocrit (Bld) [Volume fraction] 32.5 % Low 37.0-47.0 [facility] ([place] Comment on above: Performed By: #### A 1C, ADIFF, CMP, CBC, FES, GFR, LIPID, ANEU, FERR #### [place] [address] #### HCV1 #### [place] [address] Hgb 10.4 G/dL Low 12.0-16.0 [facility] ([place] Comment on above: Performed By: #### A 1C, ADIFF, CMP, CBC, FES, GFR, LIPID, ANEU, FERR #### [place] [address] #### HCV1 #### [place] [address] MCH (RBC) [Entitic mass] 26.7 pg Low 27.0-31.2 [facility] ([place] Comment on above: Performed By: #### A 1C, ADIFF, CMP, CBC, FES, GFR, LIPID, ANEU, FERR #### [place] [address] #### HCV1 #### [place] [address] MCHC 32.1 G/dL Low 33.0-37.0 [facility] ([place] Comment on above: Performed By: #### A 1C, ADIFF, CMP, CBC, FES, GFR, LIPID, ANEU, FERR #### [place] [address] #### HCV1 #### [place] [address] MCV (RBC) [Entitic vol] 83.2 fL Normal 80.0-94.0 [facility] ([place] Comment on above: Performed By: #### A 1C, ADIFF, CMP, CBC, FES, GFR, LIPID, ANEU, FERR #### [place] [address] #### HCV1 #### [place] [address] Platelet 232 10 3/mcL Normal 130-400 [facility] ([place] Comment on above: Performed By: #### A 1C, ADIFF, CMP, CBC, FES, GFR, LIPID, ANEU, FERR #### [place] [address] #### HCV1 #### [place] [address] Platelet mean volume (Bld) [Entitic vol] 9.3 fL Normal 7.4-10.4 [facility] ([place] Comment on above: Performed By: #### A 1C, ADIFF, CMP, CBC, FES, GFR, LIPID, ANEU, FERR #### [place] [address] #### HCV1 #### [place] [address] RBC 3.91 10 6/mcL Low 4.20-5.40 [facility] ([place] Comment on above: Performed By: #### A 1C, ADIFF, CMP, CBC, FES, GFR, LIPID, ANEU, FERR #### [place] [address] #### HCV1 #### [place] [id number] WBC 5.4 10 3/mcL Normal 4.6-10.8 [facility] ([place] Comment on above: Performed By: #### A 1C, ADIFF, CMP, CBC, FES, GFR, LIPID, ANEU, FERR #### [address] [address] #### HCV1 #### [address] [address] CMPon 10-11-2023 Albumin Level 3.7 G/dL Normal 3.4-4.8 [facility] ([place] Comment on above: Performed By: #### F T3, FT4, TSH #### [address] [address] Albumin/Globulin [Mass ratio] 1.1 {ratio} Normal 1.1-2.5 [facility] ([place] Comment on above: Performed By: #### F T3, FT4, TSH #### [address] [address] ALP [Catalytic activity/Vol] 38 U/L Low 40-135 [facility] ([place] Comment on above: Performed By: #### F T3, FT4, TSH #### [address] [address] ALT [Catalytic activity/Vol] 19 U/L Normal 14-59 [facility] ([place]) Comment on above: Performed By: #### F T3, FT4, TSH #### [address] [address] AST [Catalytic activity/Vol] 16 U/L Normal 10-40 [facility] ([place]) Comment on above: Performed By: #### F T3, FT4, TSH #### [address] [address] Bili Total 0.6 mg/dL Normal 0.2-1.0 [facility] ([place] Comment on above: Result Comment: Use of this assay is not recommended for patients undergoing treatment with eltrombopag due to the potential for falsely elevated results. Performed By: #### F T3, FT4, TSH #### [address] [address] BUN/Creatinine Ratio 22 ratio Normal 7-27 [facility] ([place] Comment on above: Performed By: #### F T3, FT4, TSH #### [address] [address] Calcium [Mass/Vol] 9.0 mg/dL Normal 8.4-10.2 [facility] Comment on above: Performed By: #### F T3, FT4, TSH #### [address] [address] Chloride [Moles/Vol] 104 mmol/L Normal 98-107 [facility] ([place] Comment on above: Performed By: #### F T3, FT4, TSH #### [address] [address] CO2 [Moles/Vol] 28 mmol/L Normal 23-31 [facility] ([place]) Comment on above: Performed By: #### F T3, FT4, TSH #### [address] [address] Creatinine [Mass/Vol] 1.10 mg/dL High 0.55-1.02 [facility] ([place]) Comment on above: Performed By: #### F T3, FT4, TSH #### [address] [address] Electrolyte Balance 6.0 mEq/L Normal 4.0-15.0 [facility] ([place]) Comment on above: Performed By: #### F T3, FT4, TSH #### [address] [address] Globulin 3.4 G/dL Normal [facility] ([place] Comment on above: Performed By: #### F T3, FT4, TSH #### [address] [address] Glucose [Mass/Vol] 84 mg/dL Normal 80-115 [facility] [place] Comment on above: Performed By: #### F T3, FT4, TSH #### [address] [address] Potassium [Moles/Vol] 5.0 mmol/L Normal 3.5-5.1 [facility] ([place]) Comment on above: Performed By: #### F T3, FT4, TSH #### [address] [address] Sodium [Moles/Vol] 138 mmol/L Normal 136-145 [facility] [place] Comment on above: Performed By: #### F T3, FT4, TSH #### [address] [address] Total Protein 7.1 G/dL Normal 6.4-8.2 [facility] ([place] Comment on above: Performed By: #### F T3, FT4, TSH #### [address] [address] Urea nitrogen [Mass/Vol] 24 mg/dL High 7-18 [facility] ([place] Comment on above: Performed By: #### F T3, FT4, TSH #### [address] [address] Alvin 10-11-2023 Ferritin [Mass/Vol] 19.0 ng/mL Normal 8.0-252.0 [facility] ([place]) Comment on above: Performed By: #### A 1C, ADIFF, CMP, CBC, FES, GFR, LIPID, ANEU, FERR #### [place] [id number] #### HCV1 #### [place] [address] FESon 10-11-2023 Iron [Mass/Vol] 45 ug/dL Low 50-170 [facility] ([place]) Comment on above: Performed By: #### A 1C, ADIFF, CMP, CBC, FES, GFR, LIPID, ANEU, FERR #### [address] [address] #### HCV1 #### [place] [address] Iron Sat 12 % Normal [facility] ([place]) Comment on above: Performed By: #### A 1C, ADIFF, CMP, CBC, FES, GFR, LIPID, ANEU, FERR #### [address] [address] #### HCV1 #### [place] [address] TIBC 375 mcg/dL Normal 250-450 [facility] ([place] Comment on above: Performed By: #### A 1C, ADIFF, CMP, CBC, FES, GFR, LIPID, ANEU, FERR #### [address] [address] #### HCV1 #### [place] [address] FT3on 10-11-2023 Free T3 [Mass/Vol] 1.88 pg/mL Low 2.30-4.00 [facility] Comment on above: Performed By: #### F T3, FT4, TSH #### [address] [address] FT4on 10-11-2023 Free T4 [Mass/Vol] 0.91 ng/dL Normal 0.76-1.46 [facility] Comment on above: Performed By: #### F T3, FT4, TSH #### [place] [id number] HCVon 10-11-2023 Hep C Ab Non-Reactive Normal Non-Reacti ve [facility] ([place]) Comment on above: Performed By: #### F T3, FT4, TSH #### [place] [address] Hep C Ab Int Normal [facility] ([place]) Comment on above: Result Comment: Nonr eactive: [...] #### F T3, FT4, TSH #### [place] [address] [place], [place] [address] LABORATORYOrdered By: SYSTEM SYSTEM on 10-11-2023 Albumin [...] 10-11-2023 Cholesterol [Mass/Vol] 198 mg/dL Normal 0-200 [facility] ([place]) Comment on above: Result Comment: Chol esterol Reference Interval: Less than 200 Desirable 200-239 Borderline high risk 240 and above High risk Performed By: #### F T3, FT4, TSH #### [place] [place], [place] [address] Cholesterol in HDL [Mass/Vol] 79 mg/dL High 40-60 [facility] ([place] Comment on above: Performed By: #### F T3, FT4, TSH #### [place] [address] [place], [place] [address] Cholesterol in LDL [Mass/Vol] 110 mg/dL Normal 0-130 [facility] ([place] Comment on above: Performed By: #### F T3, FT4, TSH #### [place] [address] [place], [place] [address] Triglyceride [Mass/Vol] 47 mg/dL Normal 0-150 [facility] ([place] Comment on above: Result Comment: Trig lyceride Reference Interval: Less than 150 Normal 150-199 Borderline high risk 200-499 High risk 500 or higher Very high risk Performed By: #### F T3, FT4, TSH #### [place] [address] [place], [place] [address] TSHon 10-11-2023 TSH Qn 0.75 m[IU]/L Normal 0.36-3.74 [facility] ([place]) Comment on above: Performed By: #### F T3, FT4, TSH #### [address] [address] ECG B/O W INTERP (MED OFFICE )on 09-13-2023 Normal sinus rhythm at 60 bpm, MN 180, QRS 100, QTc 400 seconds, normal axis. [facility] ECHOon 06-14-2023 [facility] .GFRon 05-12-2023 GFR Non- 52 ml/min/1.73sqm Normal [facility] ([place]) Comment on above: Result Comment: GFR Population [...] By: #### F T3, FT4, TSH #### [address] [address] GFR 63 ml/min/1.73sqm Normal [facility] ([place] Comment on above: Result Comment: GFR Population [...] By: #### F T3, FT4, TSH #### [address] [address] BMPon 05-12-2023 BUN/Creatinine Ratio 9 ratio Normal 7-27 [facility] ([place] Comment on above: Performed By: #### F T3, FT4, TSH #### [address] [address] Calcium [Mass/Vol] 9.5 mg/dL Normal 8.4-10.2 [facility] [place] Comment on above: Performed By: #### F T3, FT4, TSH #### [address] [address] Chloride [Moles/Vol] 105 mmol/L Normal 98-107 [facility] ([place] Comment on above: Performed By: #### F T3, FT4, TSH #### [address] [address] CO2 [Moles/Vol] 30 mmol/L Normal 23-31 [facility] ([place] Comment on above: Performed By: #### F T3, FT4, TSH #### [address] [address] Creatinine [Mass/Vol] 1.06 mg/dL High 0.55-1.02 [facility] ([place]) Comment on above: Performed By: #### F T3, FT4, TSH #### [address] [address] Electrolyte Balance 9.0 mEq/L Normal 4.0-15.0 [facility] ([place] Comment on above: Performed By: #### F T3, FT4, TSH #### [address] [address] Glucose [Mass/Vol] 122 mg/dL High 80-115 [facility] [place] Comment on above: Performed By: #### F T3, FT4, TSH #### [address] [address] Potassium [Moles/Vol] 5.3 mmol/L High 3.5-5.1 [facility] ([place]) Comment on above: Performed By: #### F T3, FT4, TSH #### [address] [address] Sodium [Moles/Vol] 144 mmol/L Normal 136-145 [facility] [place] Comment on above: Performed By: #### F T3, FT4, TSH #### [address] [address] Urea nitrogen [Mass/Vol] 10 mg/dL Normal 7-18 [facility] ([place] Comment on above: Performed By: #### F T3, FT4, TSH #### [address] [address] FT3on 05-12-2023 Free T3 [Mass/Vol] 2.31 pg/mL Normal 2.30-4.00 [facility] [place] Comment on above: Performed By: #### F T3, FT4, TSH #### [address] [address] FT4on 05-12-2023 Free T4 [Mass/Vol] 1.01 ng/dL Normal 0.76-1.46 [facility] [place] Comment on above: Performed By: #### F T3, FT4, TSH #### [place] [address] [place] [address] LABORATORYOrdered By: SYSTEM SYSTEM on 05-12-2023 25-hydroxyvitamin [...] 05-12-2023 PTH, Intact 64.8 pg/mL Normal 18.5-88.0 [facility] ([place] Comment on above: Performed By: #### F T3, FT4, TSH #### [address] [address] TSHon 05-12-2023 TSH Qn 0.31 m[IU]/L Low 0.36-3.74 [facility] ([place]) Comment on above: Performed By: #### F T3, FT4, TSH #### [address] [address] VIDHon 05-12-2023 Vit. D 25-Hydroxy 42.8 ng/mL Normal [facility] ([place]) Comment on above: Result Comment: Inte rpretive Values Based on Total 25(OH) Vitamin D: Deficient <20 ng/mL Insufficient 20 - <30 ng/mL Sufficient 30-100 ng/mL Performed By: #### F T3, FT4, TSH #### [place] [id number] [place], [place] [address] XR Knee AP and Lateral and M marcusjulian 07-14-2022 IMPRESSION: 1. 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 Significant anterior soft tissue swelling. Differential includes hematoma and bursitis [employer]: [employer] Transcribe Date/Time: Jul 14 2022 11:10A Dictated by : MECCA RODRIGUEZ MD This examination was interpreted and the report reviewed and electronically signed by: MECCA RODRIGUEZ MD on Jul 14 2022 11:15AM EST [facility] * * *Final Report* * * [...] the tibia, little changed. Stable patella yo. [facility] Provider, [facility] Guera Zebulon - 07/14/2022 * * *Final Report* * [...] tissue swelling. Differential includes hematoma and bursitis [employer]: [employer] Transcribe Date/Time: Jul 14 2022 11:10A Dictated by : MECCA RODRIGUEZ MD This examination was interpreted and the report reviewed and electronically signed by: MECCA RODRIGUEZ MD on Jul 14 2022 11:15AM EST [facility] XR Knee AP and Lateral and M erchantsOrdered By: Ccf Provider on 07-14-2022 [facility] XR Knee AP and Lateral and M erchantson 07-09-2022 Radiology Study observation (narrative) [facility] Anaerobic cultureOrdered By: Josh Roland on 05-27-2022 Bacteria identified Anaer cx Nom (Unsp spec) No growth in [address] [facility] Bacterial body fluid culture Ordered By: Josh Roland on 05-27-2022 Bacteria identified Cx Nom (Body fld) No growth aerobically. [facility] Absolute lymphocyte countOrd ered By: Josh Roland on 05-22-2022 Lymphocytes Auto (Unsp spec) [#/Vol] 1.54 10*3/uL 0.83-4.51 [facility] Basophil percentageOrdered B y: Josh Roland on 05-22-2022 Basophils/100 WBC (Bld) 1.8 % 0-1 [facility] Eosinophils/100 WBC (Bld) 11.7 % 0-5 [facility] Neutrophils (Bld) [#/Vol] 4.8 10*3/uL 2.0-7.7 [facility] Neutrophils/100 WBC (Bld) 58.5 % 47-70 [facility] WBC (Bld) [#/Vol] 8.2 10*3/uL 4.4-11.0 [facility] Blood erythrocytes count (nu mber/volume)Ordered By: Josh Roland on 05-22-2022 RBC (Bld) [#/Vol] 4.30 10*6/uL 4.2-5.4 [facility] Blood hemoglobin measurement (mass/volume)Ordered By: Josh Roland on 05-22-2022 Hemoglobin (Bld) [Mass/Vol] 11.6 g/dL 12.0-15.0 [facility] Blood lymphocytes/100 leukoc ytesOrdered By: Josh Roland on 05-22-2022 Lymphocytes/100 WBC (Bld) 18.8 % 19-41 [facility] Lymphocytes/100 WBC (Bld) 6 % [facility] Blood monocytes/100 leukocyt esOrdered By: Josh Roland on 05-22-2022 Monocytes/100 WBC (Bld) 9.0 % 0-10 [facility] Blood platelet mean volumeOr dered By: Josh Roland on 05-22-2022 Platelet mean volume (Bld) [Entitic vol] 11.6 fL 6.2-12.0 [facility] Color of Synovial fluidOrder ed By: Josh Roland on 05-22-2022 Color (Syn fld) Bloody Pale Yellow [facility] Determination of appearance of synovial fluidOrdered By: Josh Roland on 05-22-2022 Appearance (Syn fld) Cloudy CLEAR [facility] Determination of erythrocyte mean corpuscular volume (MCV)Ordered By: Josh Roland on 05-22-2022 MCV (RBC) [Entitic vol] 86.3 fL 81-99 [facility] Erythrocyte sedimentation ra teOrdered By: Josh Roland on 05-22-2022 ESR (Bld) [Velocity] 4 mm/h 0-30 [facility] Gram stain for investigation of transfusion reactionOrdered By: Josh Roland on 05-22-2022 Microscopic observation Gram stain Nom (Unsp spec) [facility] Hematocrit Auto (Bld) [Volum e fraction]Ordered By: Josh Roland on 05-22-2022 Hematocrit (Bld) [Volume fraction] 37.1 % 37-47 [facility] Laboratory - Hematology and Cell countsOrdered By: Josh Roland on 05-22-2022 Erythrocyte distribution width (RBC) [Entitic vol] 51.8 fL 35.1-43.9 [facility] Erythrocyte distribution width (RBC) [Ratio] 16.4 % 11.6-14.6 [facility] Immature granulocytes/100 WBC (Bld) 0.200 % 0.0-0.9 [facility] Comment on above: IG% - Immature Granu locytes (promyelocytes, myelocytes and metamyelocytes) > 1% indicates that a LEFT SHIFT is Present. MCH (RBC) [Entitic mass] 27.0 pg 27.0-32.0 [facility] Nucleated RBC/100 WBC (Bld) [Ratio] 0 % 0-5 [facility] MCHC Auto (RBC) [Mass/Vol]Or dered By: Josh Roland on 05-22-2022 MCHC (RBC) [Mass/Vol] 31.3 g/dL 32-36 [facility] No Panel InformationOrdered By: Josh Roland on 05-22-2022 Synovial Fluid Mononuclear WBCs 0.253 10^3/ul [facility] Synovial Fluid Mononuclear WBCs % 41.5 % [facility] Synovial Fluid Polynuclear WBCs 0.356 10^3/uL [facility] Synovial Fluid Polynuclear WBCs % 58.5 % [facility] Synovial Fluid Total Cells Counted 0.6250 10^3/uL 0.000-0.[address] [facility] Comment on above: This is the Total Nu mber of Nucleated Cell Types in the Body Fluid. Platelets bldOrdered By: Josh Roland on 05-22-2022 Platelets (Bld) [#/Vol] 317 10*3/uL 150-450 [facility] Qualitative synovial fluid v iscosityOrdered By: Josh Roland on 05-22-2022 Viscosity Ql (Syn fld) Sl. Viscous HIGH W [facility] Review by pathologistOrdered By: Josh Roland on 05-22-[address] (Unsp spec) [Interp] Reviewed [facility] Comment on above: Previous reported re sult: May follow Edited by: RGOPATRICIA on 05/25/22:1325Negative for malignant cells.Herman Wang D.O. 05/25/22 AMENDED REPORT 05/25/22 1325 PATH COM/SYFL previously reported as: May follow Serum or plasma C reactive p rotein measurement (mass/volume)Ordered By: Josh Roland on 05-22-2022 CRP [Mass/Vol] mg/L 0.0-3.0 [facility] Comment on above: C-Reactive Protein ( CRP) provides useful information for thediagnosis, therapy and monitoring of inflammatory processesand associated diseases. For the evaluation of Relative Riskfor Cardiovascular Disease, a High Sensitivity CRP (HSCRP)should be ordered. Specimen source identificati on of body fluidOrdered By: Josh Roland on 05-22-2022 Specimen source Nom (Body fld) TNP [facility] Comment on above: Test not performed Synovial fluid erythrocytes count (number/volume)Ordered By: Josh Roland on 05-22-2022 RBC (Syn fld) [#/Vol] 0.043 10^6/uL 0-0 [facility] Synovial fluid leukocytes co unt (number/volume)Ordered By: Josh Roland on 05-22-2022 WBC (Syn fld) [#/Vol] 0.6090 10^3/uL 0.00 0-0.[address] [facility] Synovial fluid monocyte perc entageOrdered By: Josh Roland on 05-22-2022 Monocytes/100 WBC (Syn fld) 25 % [facility] Synovial fluid neutrophil pe rcentageOrdered By: Josh Roland on 05-22-2022 Neutrophils/100 WBC (Syn fld) 53 % 0-25 [facility] Synovial fluid other cells/1 00 leukocytes identificationOrdered By: Josh Roland on 05-22-2022 Other cells/100 WBC Nom (Syn fld) 16 % [facility] LABORATORYOrdered By: SYSTEM SYSTEM on 05-15-2022 [...] Culture Urine No growth at 48 hours. [facility] Work Phone: LABORATORYOrdered By: Kaylene Mcelroy on [...] 07-08 Citrobacter freundii complex Citrobacter freundii complex [facility] Work Phone: Culture Urine >100,000 cfu/ml Citr obacter freundii complex [facility] Work Phone: LABORATORYOrdered By: Gerson Lujan on [...] to nickel. Her surgery was performed at [facility] in [place]. Her last surgery she had extensor mechanism [...] 2014 History of uterine fibroid (V13.29) (Z86.018) Cargo Handler Dr. Lino History of uterine leiomyoma (V13.29) [...] Tonsillectomy Hi (more content not included)... [facility] PA AND LATon CHEST 2 VIEW PA AND LAT Patient Name: BELLA MORILLO STUDY: TH CHEST 2 VIEW PA AND LAT; 04/22/2020 12:18 pm INDICATION: cough, fever, COVID negative. COMPARISON: None. ACCESSION NUMBER(S): [id number] ORDERING CLINICIAN: PRADEEP REDMONDINAL FINDINGS: CARDIOMEDIASTINAL SILHOUETTE: [...] Electronically signed by: EILEEN RIOS MD Normal [facility] Office Visit (Family Medicpeter glass)on 04-22-2020 Follow-up [...] (Z87.39) History of uterine fibroid (V13.29) (Z86.018) Cargo Handler Dr. Lino History of uterine leiomyoma (V13.29) [...] 1 CAPSULE EVERY 12 HOURS DAILY; Therapy: [id number] to (Evaluate:[id number]) Requested for: [id number]; Last Rx:[id number] Ordered Rx By: Aida Gil; Dispense: 7 Days ; #:14 Capsule; Refill: 0;For: Acute UTI; PANCHO = N; Verified Transmission to [facility]; Last U (more content not included)... Normal Quarterly CORONAVIRUS 2019 BY PCRon SARS-CoV-2 (COVID-19) RNA GABRIELLE+probe Ql (Unsp spec) Not detected Normal Not Detected [facility] Comment on above: Result Comment: . This assay is designed to detect the ORF1ab and/or S genes of SARS-CoV-2 via nucleic acid amplification. A Not Detected result does not preclude 2019-nCoV infection since the adequacy of sample collection and/or low viral burden may result in presence of viral nucleic acids below the clinical sensitivity of this test method. Fact sheet for providers: www.fda.gov/media/676871/download Fact sheet for patients: www.fda.gov/media/581402/download This test has received FDA Emergency Use Authorization (EUA) and has been verified by [facility] ([facility]). This test is only authorized for the duration of time that circumstances exist to justify the authorization of the emergency use of in vitro diagnostic tests for the detection of SARS-CoV-2 virus and/or diagnosis of COVID-19 infection under section 564(b)(1) of the Act, 21 U.S.C. 360bbb-3(b)(1), unless the authorization is terminated or revoked sooner. [facility] is certified under CLIA-88 as qualified to perform high complexity testing. Testing is performed in the [facility] laboratories located at [address] [place] [address]. Performed By: #### C OV19 #### [address] [place] [address] DATE OF SYMPTOM ONSET [YYYYMMDD]? [id number] Normal [facility] Comment on above: Performed By: #### C OV19 #### [place] [address] Covid 19 Resultson 0 SARS-CoV-2 (COVID-19) RNA [...] You may also be contacted by the [facility] to see if any of [...] or Naproxen (Aleve) can also be used. Kzyc-tvw-xyhejxi cough and cold medicines can be used according to the instructions on the package. Some ktvc-vto-newsvci medicines also contain acetaminophen. Make sure you [...] water are not available, use alcohol-based hand heavy equipment sales manager. Avoid touching your eyes, nose, and mouth [...] ibuprofen (Motrin) (more content not included)... Normal [facility] CORONAVIRUS 2019 BY PCRon Lab Specimen Source Nasal, Nasopharyngeal Normal [facility] Comment on above: Performed By: #### C OV19 #### [facility] [address] [place] [address] PHYSICAL THERAPY REPORTon [facility] [address] [address] PHYSICAL THERAPY REPORT Patient: YISELBELLA ZACKARY O M.D. [id number] [age] F Status: DIS RCR PT [...] bilaterally was 50 pounds. The physical therapy coordinator who saw her that date on 01/12/2020, called the doctor's office and spoke with the nurse regarding the significant edema. At this time, we have not heard back from this patient regarding continuing physical therapy. She is currently being discharged. If I can provide you with any further assistance, please do not hesitate to contact me. Sincerely, DATE OF VISIT: Report#: Dict ID [id number] / Int ID [id number] cc: Todd Reyes MD Dictated By: LUPE CERNA P.T. 03/20/20 1309 LUPE CERNA P.T. CC: TODD REYES M.D. << Signature on File>> Reported By: LUPE CERNA P.T. Signed By: LUPE CERNA P.T. Tests performed at: [place] [address] Normal [facility] PHYSICAL THERAPY REPORTon [facility]PORT [facility] [address] [address] PHYSICAL THERAPY REPORT Patient: BELLA MORILLO TODD SHAVER M.D. [id number] [age] F Status: REG RCR PT [...] upon discharge. 3. This patient will tolerate mch-oa-rlapa from an 18-inch chair repetitively 5 times [...] current physical therapy prescription. Report#: Dict ID [id number] / Int ID [id number] cc: Todd Reyes MD Dictated By: LUPE CERNA P.T. 12/25/19 1211 LUPE CERAN P.T. CC: TODD REYES M.D. << Signature on File>> Reported By: LUPE CERNA P.T. Signed By: LUPE CERNA P.T. Tests performed at: [address] [address] Normal [facility] BMPon 11-20-2019 Anion gap [Moles/Vol] 14.7 mmol/L Low 15-22 [facility] Comment on above: Performed By: #### L 304.0162, L304.0140 #### [facility] - LABORATORY [address] [place] [address] Calcium [Mass/Vol] 9.0 mg/dL Normal 8.8-10.2 [facility] Comment on above: Performed By: #### L 304.0162, L304.0140 #### [facility] [address] [place] [address] Chloride [Moles/Vol] 100 mmol/L Normal 98-107 [facility] Comment on above: Performed By: #### L 304.0162, L304.0140 #### [facility] [address] [place] [address]18 CO2 [Moles/Vol] 29 mmol/L Normal 22-29 [facility] Comment on above: Performed By: #### L 304.0162, L304.0140 #### - LABORATORY [address] [place] [address] 37139 Creatinine [Mass/Vol] 1.32 mg/dL High 0.50-0.90 [facility] Comment on above: Performed By: #### L 304.0162, L304.0140 #### [facility] - LAB[facility]ATORY [address] [place] [address] 98059 eGFR if AFR CLIFF 49 [facility] Comment on above: Result Comment: eGFR >= [...] Performed By: #### L 304.0162, L304.0140 #### [facility] [address] [place] [address] 29138 eGFR nonAFR Cliff [address] [facility] Comment on above: Performed By: #### L 304.0162, L304.0140 #### [facility] - [facility]ORY [address] [place] [address] 69309 Glucose [Mass/Vol] 89 mg/dL Normal 82-115 [facility] Comment on above: Performed By: #### L 304.0162, L304.0140 #### [facility] [address] [place] [address] 07925 Potassium [Moles/Vol] 4.7 mmol/L Normal 3.5-5.0 [facility] Comment on above: Performed By: #### L 304.0162, L304.0140 #### [facility] [address] [place] [address] 20071 Sodium [Moles/Vol] 139 mmol/L Normal 135-145 [facility] Comment on above: Performed By: #### L 304.0162, L304.0140 #### [facility] - [facility]ORY [address] [place] [address] 55173 Urea nitrogen [Mass/Vol] 32 mg/dL High 8-23 [facility] Comment on above: Performed By: #### L 304.0162, L304.0140 #### [facility] - LAB[facility]ATORY [address] [place] [address] 80557 CBCon 11-20-2019 Basophils (Bld) [#/Vol] 0.20 x10(3) High 0.00-0.10 [facility] Comment on above: Performed By: #### L 304.0162, L304.0140 #### [facility] [address] [place] [address] 25580 Basophils/100 WBC (Bld) 2.1 % High 0.0-1.0 [facility] Comment on above: Performed By: #### L 304.0162, L304.0140 #### [facility] [address] [place] [address] 10186 Eosinophils (Bld) [#/Vol] 1.70 x10(3) High 0.00-0.54 [facility] Comment on above: Performed By: #### L 304.0162, L304.0140 #### [facility] - [facility]ORY [address] [place] [address]013 Eosinophils/100 WBC (Bld) 17.9 % High 0.5-4.9 [facility] Comment on above: Performed By: #### L 304.0162, L304.0140 #### [facility] [address] [place] [address] 70619 Erythrocyte distribution width (RBC) [Ratio] 15.7 % Normal 12.5-15.7 [facility] Comment on above: Performed By: #### L 304.0162, L304.0140 #### [facility] [address] [place] [address] 81004 Hematocrit (Bld) [Volume fraction] 33.4 % Low 36.0-48.0 [facility] Comment on above: Performed By: #### L 304.0162, L304.0140 #### [facility] [address] [place] [address] 601[address] Hemoglobin (Bld) [Mass/Vol] 10.7 g/dL Low 12.0-16.0 [facility] Comment on above: Performed By: #### L 304.0162, L304.0140 #### [facility] [address] [place] [address] 19740 Lymphocytes (Bld) [#/Vol] 1.60 x10(3) Normal 1.00-3.50 [facility] Comment on above: Performed By: #### L 304.0162, L304.0140 #### [facility] [address] [place] [address] 35666 Lymphocytes/100 WBC (Bld) 17.7 % Normal 16.0-48.0 [facility] Comment on above: Performed By: #### L 304.0162, L304.0140 #### [facility] [address] [place] [address] 08493 MCH (RBC) [Entitic mass] 28.2 pg Low 28.5-32.9 [facility] Comment on above: Performed By: #### L 304.0162, L304.0140 #### [facility] [address] [place] [address]207 MCHC (RBC) [Mass/Vol] 32.1 g/dL Low 33.0-36.0 [facility] Comment on above: Performed By: #### L 304.0162, L304.0140 #### [facility] [address] [place] [address] 32895 MCV (RBC) [Entitic vol] 87.7 fL Normal 80.0-99.0 [facility] Comment on above: Performed By: #### L 304.0162, L304.0140 #### [facility] [address] [place] [address] 37637 Monocytes (Bld) [#/Vol] 1.10 x10(3) High 0.30-0.80 [facility] Comment on above: Performed By: #### L 304.0162, L304.0140 #### [facility] [address] [place] [address] 20546 Monocytes/100 WBC (Bld) 11.6 % High 4.3-11.2 [facility] Comment on above: Performed By: #### L 304.0162, L304.0140 #### [facility] [address] [place] [address] 28479 Neutrophils (Bld) [#/Vol] 4.70 x10(3) Normal 1.40-6.50 [facility] Comment on above: Performed By: #### L 304.0162, L304.0140 #### [facility] [address] [place] [address] 35793 Neutrophils/100 WBC (Bld) 50.7 % Normal 45.0-73.0 [facility] Comment on above: Performed By: #### L 304.0162, L304.0140 #### [facility] [address] [place] [address] 14363 Platelet mean volume (Bld) [Entitic vol] 9.2 fL Normal 7.5-9.5 [facility] Comment on above: Performed By: #### L 304.0162, L304.0140 #### [facility] [address] [place] [address] 06120 Platelets (Bld) [#/Vol] 362 X10(3) Normal 150-450 [facility] Comment on above: Performed By: #### L 304.0162, L304.0140 #### [facility] [address] [place] [address] 80702 RBC (Bld) [#/Vol] 3.80 x10(6) Normal 3.30-5.00 [facility] Comment on above: Performed By: #### L 304.0162, L304.0140 #### [facility] [address] [place] [address] 05072 WBC (Bld) [#/Vol] 9.3 x10(3) Normal 4.5-10.0 [facility] Comment on above: Performed By: #### L 304.0162, L304.0140 #### - LABORATORY [address] [place] [address] MANUAL DIFFon 11-20-2019 Basophils/100 WBC (Bld) 1 % Normal 0-1 [facility] Comment on above: Performed By: #### L 304.0162, L304.0140 #### [facility] [address] [place] [address] 98594 Eosinophils/100 WBC (Bld) 20 % High 1-5 [facility] Comment on above: Performed By: #### L 304.0162, L304.0140 #### - LABORATORY [address] [place] [address] 80673 Lymphocytes/100 WBC (Bld) 18 % Normal 16-48 [facility] Comment on above: Performed By: #### L 304.0162, L304.0140 #### [facility] [address] [place] [address] 08108 MONOS 13 % High 4-12 [facility] Comment on above: Performed By: #### L 304.0162, L304.0140 #### [facility] - [facility] [address] [place] [address] 42600 Platelets (Bld) [#/Vol] NORMAL Normal [facility] Comment on above: Performed By: #### L 304.0162, L304.0140 #### - LABORATORY [address] [place] [address] 17154 RBC morphology finding Nom (Bld) NORMAL Normal [facility] Comment on above: Performed By: #### L 304.0162, L304.0140 #### [facility] [address] [place] [address] 35444 SEGS 48 % Normal 45-73 [facility] Comment on above: Performed By: #### L 304.0162, L304.0140 #### [facility] - [facility]ATORY [address] [place] [address] Normal [facility] Comment on above: Performed By: #### L 304.0162, L304.0140 #### [facility] [address] [place] [address] CLINICAL RESUMEon 11-13-2019 CLINICAL RESUME [facility] [address] HEALTH INFORMATION MANAGEMENT CLINICAL RESUME Patient: BELLA MORILLO ZASABRINA Sparrow M.D. [id number] [age] F Status: DIS IN [facility] 3920-B Date of Admission: 11/08/19 Date [...] and a wound check. Report#: Dict ID [id number] / Int ID [id number] 11/14/19 1221 TODD REYES M.D. cc: TODD REYES M.D. << Signature on File>> Reported By: TODD REYES M.D. Signed By: TODD REYES M.D. Tests performed at: [place] [address] [facility] PROGRESS NOTEon 11-13-2019 PROGRESS NOTE [facility] [address] HEALTH INFORMATION MANAGEMENT PROGRESS NOTE Patient: BELLA MORILLO TODD REYES M.D. [id number] [age] F Status: DIS IN [facility] 3920-B DATE OF PROGRESS NOTE: 11/10/2019 [...] is for discharge today. Report#: Dict ID [id number] / Int ID [id number] TODD REYES M.D. cc: TODD REYES M.D. << Signature on File>> Reported By: TODD REYSE M.D. Signed By: TODD REYES M.D. Tests performed at: [address] [address] Normal [facility] BMPon 11-10-2019 Anion gap [Moles/Vol] 14.4 mmol/L Low 15- [facility] Comment on above: Performed By: #### L 200.3001, L200.3190 #### [facility] - LAB[facility]ATORY [address] [place] [address] 83343 Calcium [Mass/Vol] 8.4 mg/dL Low 8.8-10.2 [facility] Comment on above: Performed By: #### L 200.3001, L200.3190 #### [facility] - [facility] [address] [place] [address] 67955 Chloride [Moles/Vol] 105 mmol/L Normal 98-107 [facility] Comment on above: Performed By: #### L 200.3001, L200.3190 #### [facility] - [facility]ATORY [address] [place] [address] 84287 CO2 [Moles/Vol] 24 mmol/L Normal 22-29 [facility] Comment on above: Performed By: #### L 200.3001, L200.3190 #### [facility] - [facility]ORY [address] [place] [address] 58937 Creatinine [Mass/Vol] 0.91 mg/dL High 0.50-0.90 [facility] Comment on above: Performed By: #### L 200.3001, L200.3190 #### [facility] - [facility]ATORY [address] [place] [address] 69642 eGFR if AFR CLIFF > 60 ml/min/1.73m2 Normal [facility] Comment on above: Result Comment: eGFR [...] L 200.3001, L200.3190 #### [facility] - LAB[facility]ATORY [address] [place] [address] 80433 eGFR nonAFR Cliff > 60 ml/Min/1.73m2 Normal [facility] Comment on above: Performed By: #### L 200.3001, L200.3190 #### [facility] - [facility] [address] [place] [address] 00736 Glucose [Mass/Vol] 98 mg/dL Normal 82-115 [facility] Comment on above: Performed By: #### L 200.3001, L200.3190 #### [facility] - [facility] [address] [place] [address] 14769 Potassium [Moles/Vol] 4.4 mmol/L Normal 3.5-5.0 [facility] Comment on above: Performed By: #### L 200.3001, L200.3190 #### [facility] - [facility] [address] [place] [address] 89285 Sodium [Moles/Vol] 139 mmol/L Normal 135-145 [facility] Comment on above: Performed By: #### L 200.3001, L200.3190 #### [facility] - [facility] [address] [place] [address] 43458 Urea nitrogen [Mass/Vol] 14 mg/dL Normal 8-23 [facility] Comment on above: Performed By: #### L 200.3001, L200.3190 #### [facility] - [facility] [address] [place] [address] 03523 CBCon 11-10-2019 Basophils (Bld) [#/Vol] 0.10 x10(3) Normal 0.00-0.10 [facility] Comment on above: Performed By: #### L 304.0162, L304.0140 #### [facility] [address] [place] [address] 04216 Basophils/100 WBC (Bld) 0.9 % Normal 0.0-1.0 [facility] Comment on above: Performed By: #### L 304.0162, L304.0140 #### [facility] - [facility] [address] [place] [address] 88291 Eosinophils (Bld) [#/Vol] 0.80 x10(3) High 0.00-0.54 [facility] Comment on above: Performed By: #### L 304.0162, L304.0140 #### [facility] [address] [place] [address] 42248 Eosinophils/100 WBC (Bld) 11.7 % High 0.5-4.9 [facility] Comment on above: Performed By: #### L 304.0162, L304.0140 #### [facility] [address] [place] [address] 36788 Erythrocyte distribution width (RBC) [Ratio] 15.2 % Normal 12.5-15.7 [facility] Comment on above: Performed By: #### L 304.0162, L304.0140 #### [facility] [address] [place] [address] 36470 Hematocrit (Bld) [Volume fraction] 29.2 % Low 36.0-48.0 [facility] Comment on above: Performed By: #### L 304.0162, L304.0140 #### [facility] [address] [place] [address] 75046 Hemoglobin (Bld) [Mass/Vol] 9.5 g/dL Low 12.0-16.0 [facility] Comment on above: Performed By: #### L 304.0162, L304.0140 #### [facility] [address] [place] [address] 48820 Lymphocytes (Bld) [#/Vol] 1.00 x10(3) Normal 1.00-3.50 [facility] Comment on above: Performed By: #### L 304.0162, L304.0140 #### [facility] [address] [place] [address] 00194 Lymphocytes/100 WBC (Bld) 14.2 % Low 16.0-48.0 [facility] Comment on above: Performed By: #### L 304.0162, L304.0140 #### [facility] [address] [place] [address] 69881 MCH (RBC) [Entitic mass] 28.6 pg Normal 28.5-32.9 [facility] Comment on above: Performed By: #### L 304.0162, L304.0140 #### [facility] - [facility] [address] [place] [address] 54795 MCHC (RBC) [Mass/Vol] 32.5 g/dL Low 33.0-36.0 [facility] Comment on above: Performed By: #### L 304.0162, L304.0140 #### [facility] - [facility] [address] [place] [address] 89947 MCV (RBC) [Entitic vol] 88.1 fL Normal 80.0-99.0 [facility] Comment on above: Performed By: #### L 304.0162, L304.0140 #### [facility] [address] [place] [address] 57344 Monocytes (Bld) [#/Vol] 1.20 x10(3) High 0.30-0.80 [facility] Comment on above: Performed By: #### L 304.0162, L304.0140 #### [facility] [address] [place] [address] 13711 Monocytes/100 WBC (Bld) 16.0 % High 4.3-11.2 [facility] Comment on above: Performed By: #### L 304.0162, L304.0140 #### [facility] [address] [place] [address] 27683 Neutrophils (Bld) [#/Vol] 4.10 x10(3) Normal 1.40-6.50 [facility] Comment on above: Performed By: #### L 304.0162, L304.0140 #### [facility] [address] [place] [address] 68348 Neutrophils/100 WBC (Bld) 57.2 % Normal 45.0-73.0 [facility] Comment on above: Performed By: #### L 304.0162, L304.0140 #### - LABORATORY [address] [place] [address] 73490 Platelet mean volume (Bld) [Entitic vol] 9.1 fL Normal 7.5-9.5 [facility] Comment on above: Performed By: #### L 304.0162, L304.0140 #### ML - LABORATORY [address] [place] [address] [place] [address] Platelets (Bld) [#/Vol] 149 X10(3) Low 150-450 [facility] Comment on above: Performed By: #### L 304.0162, L304.0140 #### [facility] - LABORATORY [address] [place] [address] [place] [address] RBC (Bld) [#/Vol] 3.31 x10(6) Normal 3.30-5.00 [facility] Comment on above: Performed By: #### L 304.0162, L304.0140 #### ML - LABORATORY [address] [place] [address] [place] [address] WBC (Bld) [#/Vol] 7.2 x10(3) Normal 4.5-10.0 [facility] Comment on above: Performed By: #### L 304.0162, L304.0140 #### [facility] - LABORATORY [address] [place] [address] [place] [address] VITAMIN Don 11-10-2019 VITAMIN D 28.4 ng/mL Low 30-100 [facility] Comment on above: Order Comment: ADD O N Performed By: #### L 200.3001, L200.3190 #### [facility] - LABORATORY [address] [place] [address] [place] [address] BMPon 11-09-2019 Anion gap [Moles/Vol] 13.4 mmol/L Low 15-22 [facility] Comment on above: Performed By: #### L 100.0010 #### ML - LABORATORY [address] [place] [address] [place] [address] Calcium [Mass/Vol] 7.9 mg/dL Low 8.8-10.2 [facility] Comment on above: Performed By: #### L 100.0010 #### ML - LABORATORY [address] [place] [address] [place] [address] Chloride [Moles/Vol] 106 mmol/L Normal 98-107 [facility] Comment on above: Performed By: #### L 100.0010 #### ML - LABORATORY [address] [place] [address] 71165 CO2 [Moles/Vol] 23 mmol/L Normal 22-29 [facility] Comment on above: Performed By: #### L 100.0010 #### ML - LABORATORY [address] [place] [address] 17329 Creatinine [Mass/Vol] 1.04 mg/dL High 0.50-0.90 [facility] Comment on above: Performed By: #### L 100.0010 #### ML - LABORATORY [address] [place] [address] 32000 eGFR if AFR CLIFF > 60 ml/min/1.73m2 Normal [facility] Comment on above: Result Comment: eGFR [...] #### L 100.0010 #### ML - LABORATORY [address] [place] [address] 04643 eGFR nonAFR Cliff 54 Normal [facility] Comment on above: Performed By: #### L 100.0010 #### ML - LABORATORY [address] [place] [address] 98191 Glucose [Mass/Vol] 92 mg/dL Normal 82-115 [facility] Comment on above: Performed By: #### L 100.0010 #### ML - LABORATORY [address] [place] [address] 91944 Potassium [Moles/Vol] 4.4 mmol/L Normal 3.5-5.0 [facility] Comment on above: Performed By: #### L 100.0010 #### ML - LABORATORY [address] [place] [address] 65140 Sodium [Moles/Vol] 138 mmol/L Normal 135-145 [facility] Comment on above: Performed By: #### L 100.0010 #### [facility] [address] [place] [address] 06246 Urea nitrogen [Mass/Vol] 17 mg/dL Normal 8-23 [facility] Comment on above: Performed By: #### L 100.0010 #### ML - LABORATORY [address] [place] [address] 33633 CBCon 11-09-2019 Basophils (Bld) [#/Vol] 0.10 x10(3) Normal 0.00-0.10 [facility] Comment on above: Performed By: #### L 304.0162, L304.0140 #### [facility] [address] [place] [address] 17436 Basophils/100 WBC (Bld) 0.7 % Normal 0.0-1.0 [facility] Comment on above: Performed By: #### L 304.0162, L304.0140 #### [facility] [address] [place] [address] 45194 Eosinophils (Bld) [#/Vol] 0.80 x10(3) High 0.00-0.54 [facility] Comment on above: Performed By: #### L 304.0162, L304.0140 #### ML - LABORATORY [address] [place] [address] 34802 Eosinophils/100 WBC (Bld) 10.5 % High 0.5-4.9 [facility] Comment on above: Performed By: #### L 304.0162, L304.0140 #### [facility] [address] [place] [address] 91904 Erythrocyte distribution width (RBC) [Ratio] 15.3 % Normal 12.5-15.7 [facility] Comment on above: Performed By: #### L 304.0162, L304.0140 #### [facility] - LABORATORY [address] [place] [address] 14521 Hematocrit (Bld) [Volume fraction] 29.6 % Low 36.0-48.0 [facility] Comment on above: Performed By: #### L 304.0162, L304.0140 #### [facility] [address] [place] [address] 12956 Hemoglobin (Bld) [Mass/Vol] 9.7 g/dL Low 12.0-16.0 [facility] Comment on above: Performed By: #### L 304.0162, L304.0140 #### [facility] [address] [place] [address] 05012 Lymphocytes (Bld) [#/Vol] 0.80 x10(3) Low 1.00-3.50 [facility] Comment on above: Performed By: #### L 304.0162, L304.0140 #### [facility] [address] [place] [address] 41912 Lymphocytes/100 WBC (Bld) 9.3 % Low 16.0-48.0 [facility] Comment on above: Performed By: #### L 304.0162, L304.0140 #### [facility] [address] [place] [address] 43891 MCH (RBC) [Entitic mass] 29.1 pg Normal 28.5-32.9 [facility] Comment on above: Performed By: #### L 304.0162, L304.0140 #### [facility] [address] [place] [address] 79752 MCHC (RBC) [Mass/Vol] 32.9 g/dL Low 33.0-36.0 [facility] Comment on above: Performed By: #### L 304.0162, L304.0140 #### [facility] [address] [place] [address] 30114 MCV (RBC) [Entitic vol] 88.5 fL Normal 80.0-99.0 [facility] Comment on above: Performed By: #### L 304.0162, L304.0140 #### [facility] [address] [place] [address] 91480 Monocytes (Bld) [#/Vol] 1.00 x10(3) High 0.30-0.80 [facility] Comment on above: Performed By: #### L 304.0162, L304.0140 #### [facility] - LABORATORY [address] [place] [address] 81531 Monocytes/100 WBC (Bld) 13.0 % High 4.3-11.2 [facility] Comment on above: Performed By: #### L 304.0162, L304.0140 #### [facility] - LABORATORY [address] [place] [address] 75391 Neutrophils (Bld) [#/Vol] 5.30 x10(3) Normal 1.40-6.50 [facility] Comment on above: Performed By: #### L 304.0162, L304.0140 #### [facility] [address] [place] [address] 78811 Neutrophils/100 WBC (Bld) 66.5 % Normal 45.0-73.0 [facility] Comment on above: Performed By: #### L 304.0162, L304.0140 #### [facility] - LABORATORY [address] [place] [address] 78815 Platelet mean volume (Bld) [Entitic vol] 9.1 fL Normal 7.5-9.5 [facility] Comment on above: Performed By: #### L 304.0162, L304.0140 #### [facility] [address] [place] [address] 11606 Platelets (Bld) [#/Vol] 147 X10(3) Low 150-450 [facility] Comment on above: Performed By: #### L 304.0162, L304.0140 #### ML - LABORATORY [address] [place] [address] 49706 RBC (Bld) [#/Vol] 3.34 x10(6) Normal 3.30-5.00 [facility] Comment on above: Performed By: #### L 304.0162, L304.0140 #### [facility] [address] [place] [address] 85060 WBC (Bld) [#/Vol] 8.0 x10(3) Normal 4.5-10.0 [facility] Comment on above: Performed By: #### L 304.0162, L304.0140 #### [facility] - [facility] [address] [place] [address] OPERATIVE REPORTon 0 [place] [address] HEALTH INFORMATION MANAGEMENT OPERATIVE REPORT Patient: BELLA MORILLO TODD REYES M.D. [id number] [age] F Status: DIS IN [facility] 3920-B DATE OF SURGERY: 11/08/2019 SURGEON: [...] complex wound closure of the left knee. FARM EQUIPMENT TECHNICIAN: Satish Tang PA-C. ANESTHESIOLOGIST: Asiya Kulkarni MD ANESTHESIA TYPE: General endotracheal anesthesia. ESTIMATED BLOOD LOSS: 400 mL. BLOOD PRODUCTS ADMINISTERED: None. URINE OUTPUT: 300 mL. FLUIDS: Per Anesthesia record. IMPLANTS: [place] 177 mm press-fit femoral stem with a [...] hours of time was spent in direct [id number] consultation with this patient prior to deciding [...] which a time-out was performed according to [facility] protocol. A tourniquet was inflated to 250 [...] The muscle layer was closed in a ukpid-hmia-ygil fashion with the medial vastus being advanced [...] emerged from general anesthesia without complication. Physician medical claims assistant, Satish Tang, was present throughout the procedure, helped with patient positioning and retraction during the case and wound closure. Report#: Dict ID [id number] / Int ID [id number] 11/14/19 1221 _ TODD REYES M.D. cc: TODD REYES M.D. << Signature on File>> Reported By: TODD REYES M.D. Signed By: TODD REYES M.D. Tests performed at: [place] [id number] [place], [place] [address] Normal [facility] PROGRESS NOTEon 11-09-2019 PROGRESS NOTE [facility] [place] [address] HEALTH INFORMATION MANAGEMENT PROGRESS NOTE Patient: BELLA MORILLO TODD REYES M.D. [id number] [age] F Status: DIS IN [facility] 3920-B DATE OF PROGRESS NOTE: 11/09/2019 [...] Please call with questions. Report#: Dict ID [id number] / Int ID [id number] TODD REYES M.D. cc: TODD REYES M.D. << Signature on File>> Reported By: TODD REYES M.D. Signed By: TODD REYES M.D. Tests performed at: [address] [address] Normal [facility] ANAEROBEon 11-08-2019 ANAEROBE MEDIAL SYNOVIUM ORGANISM 1: NO ANAEROBES ISOLATED ORGANISM 1: NO GROWTH Normal [facility] Comment on above: Performed By: #### L 200.3001, L200.5500 #### [facility] - [facility] [address] [place] [address] 16492 ANAEROBE SUPRA-PATELLAR ORGANISM 1: NO ANAEROBES ISOLATED ORGANISM 1: NO GROWTH Normal [facility] Comment on above: Performed By: #### L 304.0162, L304.0140 #### [facility] - [facility] [address] [place] [address] 54808 ANAEROBE Comment: FAT PAD ORGANISM 1: NO ANAEROBES ISOLATED ORGANISM 1: NO GROWTH Normal [facility] Comment on above: Performed By: #### L 304.0162, L304.0140 #### [facility] - [facility] [address] [place] [address] 03016 KNEE NON-INJURY (1-2 VIEWS)o n 11-08-2019 KNEE NON-INJURY (1-2 VIEWS) [place] [address] Name: BELLA MORILLO Luciano Phys: SATISH TANG PA-C : 59 Age: 64 Sex: F Acct: [id number] Loc: 3SEAST Exam Date: 11/08/19 Status: ADM IN Radiology No.: [id number] Unit Number: [id number] Exam # Type/Exam [id number] RAD / KNEE NON-INJURY (1-2 VIEWS) LT [...] By: SIN EDWARDS M.D. Tests performed at: [place] [address] Normal [facility] KNEE NON-INJURY (1-2 VIEWS) [address] [place] [address] Name: BELLA MORILLO Phys: TODD REYES M.D. : 59 Age: 64 Sex: F Acct: [id number] Loc: 3SEAST Exam Date: 11/08/19 Status: ADM IN Radiology No.: [id number] Unit Number: [id number] Exam # Type/Exam [id number] RAD / KNEE NON-INJURY (1-2 VIEWS) LT [...] By: JAYE ZEPEDA M.D. Tests performed at: [place] [address] Normal [facility] PTon 11-08-2019 INR Coag (PPP) [Relative time] 1.2 {INR} Normal [facility] Comment on above: Order Comment: Comme nt: [...] systemic embolism) 2.0-3.0 AMI (to prevent recurrent NH) 2.5-3.5 Valvular heart disease 2.0-3.0 Atrial fibrillation 2.0-3.0 Mechanical prosthetic valves (high risk) 2.5-3.5 Bileaflet mechanical valve in aortic position 2.0-3.0 Presence of Lupus Anticoagulant or Antiphospholipid Antibodies 2.5-3.5 PANIC VALUE: GREATER THAN OR EQUAL TO 4.5 Performed By: #### L 200.1602 #### [facility] - [facility] [address] [place] [address] PT Coag (PPP) [Time] 13.6 s High 9.4-12.5 [facility] Comment on above: Order Comment: Comme nt: POD 12 Performed By: #### L 200.1602 #### [facility] - [facility] [address] [place] [address] 64669 SURGICALon 11-08-2019 SURGICAL OTHER - MEDIAL SYNOV [...] areas of white-garcía exudative material are identified. Rebar Worker sections are submitted for frozen section analysis and resubmitted for permanent in cassette A1. The remaining tissue is submitted in cassette A2 for permanent only. [facility] CLINICAL DATA: PROCEDURE: Medial synovial tissue PRE-OP: Not given POST-OP: Not given HISTORY: N/A Signed *Electronically Signed* CODI SNEED M.D. 11/09/[address] [facility] Comment on above: Performed By: #### L 304.0162, L304.0140 #### ML - LABORATORY [address] [place] [address] [id number] 11-07-[address] [facility] Comment on above: Result Comment: SPEC IMEN SENT TO A MISCELLANEOUS LAB SEE SCANNED RESULTS FOR TESTING FACILITY INFORMATION TYPE AND SCREENon 11-07-[address] [facility] Comment on above: Performed By: #### B 100.0700 #### ML - LABORATORY [address] [place] [address] [facility] Comment on above: Performed By: #### B 100.0700 #### ML - LABORATORY [address] [place] [address] 49893 Free T4on 11-05-2019 Free T4 [Mass/Vol] 1.13 ng/dL Normal 0.93-1.7 [facility] Comment on above: Performed By: #### L 304.0162, L304.0140 #### ML - LABORATORY [address] [place] [address] 89295 TSHon 11-05-2019 TSH Qn 0.89 uIU/mL Normal 0.27-4.20 [facility] Comment on above: Performed By: #### L 304.0162, L304.0140 #### ML - LABORATORY [address] [place] [address] 62239 CBCon 10-23-2019 Basophils (Bld) [#/Vol] 0.10 x10(3) Normal 0.00-0.10 [facility] Comment on above: Performed By: #### L 200.3001, L200.3190 #### [facility] [address] [place] [address] 47180 Basophils/100 WBC (Bld) 1.9 % High 0.0-1.0 [facility] Comment on above: Performed By: #### L 200.3001, L200.3190 #### [facility] [address] [place] [address] 78875 Eosinophils (Bld) [#/Vol] 0.70 x10(3) High 0.00-0.54 [facility] Comment on above: Performed By: #### L 200.3001, L200.3190 #### [facility] [address] [place] [address] 48455 Eosinophils/100 WBC (Bld) 10.2 % High 0.5-4.9 [facility] Comment on above: Performed By: #### L 200.3001, L200.3190 #### [facility] [address] [place] [address] 04465 Erythrocyte distribution width (RBC) [Ratio] 15.2 % Normal 12.5-15.7 [facility] Comment on above: Performed By: #### L 200.3001, L200.3190 #### [facility] [address] [place] [address] 07129 Hematocrit (Bld) [Volume fraction] 37.7 % Normal 36.0-48.0 [facility] Comment on above: Performed By: #### L 200.3001, L200.3190 #### [facility] [address] [place] [address] 84827 Hemoglobin (Bld) [Mass/Vol] 12.1 g/dL Normal 12.0-16.0 [facility] Comment on above: Performed By: #### L 200.3001, L200.3190 #### [facility] [address] [place] [address] 06210 Lymphocytes (Bld) [#/Vol] 1.40 x10(3) Normal 1.00-3.50 [facility] Comment on above: Performed By: #### L 200.3001, L200.3190 #### [facility] [address] [place] [address] 52268 Lymphocytes/100 WBC (Bld) 21.5 % Normal 16.0-48.0 [facility] Comment on above: Performed By: #### L 200.3001, L200.3190 #### [facility] [address] [place] [address] 00628 MCH (RBC) [Entitic mass] 28.7 pg Normal 28.5-32.9 [facility] Comment on above: Performed By: #### L 200.3001, L200.3190 #### [facility] [address] [place] [address] 90982 MCHC (RBC) [Mass/Vol] 32.1 g/dL Low 33.0-36.0 [facility] Comment on above: Performed By: #### L 200.3001, L200.3190 #### [facility] [address] [place] [address] 04131 MCV (RBC) [Entitic vol] 89.2 fL Normal 80.0-99.0 [facility] Comment on above: Performed By: #### L 200.3001, L200.3190 #### [facility] [address] [place] [address] 57037 Monocytes (Bld) [#/Vol] 0.80 x10(3) Normal 0.30-0.80 [facility] Comment on above: Performed By: #### L 200.3001, L200.3190 #### [facility] [address] [place] [address] 81277 Monocytes/100 WBC (Bld) 11.2 % Normal 4.3-11.2 [facility] Comment on above: Performed By: #### L 200.3001, L200.3190 #### [facility] [address] [place] [address] 02030 Neutrophils (Bld) [#/Vol] 3.70 x10(3) Normal 1.40-6.50 [facility] Comment on above: Performed By: #### L 200.3001, L200.3190 #### ML - LABORATORY [address] [place] [address] 83343 Neutrophils/100 WBC (Bld) 55.2 % Normal 45.0-73.0 [facility] Comment on above: Performed By: #### L 200.3001, L200.3190 #### ML - LABORATORY [address] [place] [address] 19209 Platelet mean volume (Bld) [Entitic vol] 9.4 fL Normal 7.5-9.5 [facility] Comment on above: Performed By: #### L 200.3001, L200.3190 #### ML - LABORATORY [address] [place] [address] 35540 Platelets (Bld) [#/Vol] 252 X10(3) Normal 150-450 [facility] Comment on above: Performed By: #### L 200.3001, L200.3190 #### ML - LABORATORY [address] [place] [address] 17373 RBC (Bld) [#/Vol] 4.23 x10(6) Normal 3.30-5.00 [facility] Comment on above: Performed By: #### L 200.3001, L200.3190 #### ML - LABORATORY [address] [place] [address] 27785 WBC (Bld) [#/Vol] 6.7 x10(3) Normal 4.5-10.0 [facility] Comment on above: Performed By: #### L 200.3001, L200.3190 #### ML - LABORATORY [address] [place] [address] 61922 CHEST (TWO VIEWS) - CXRon CHEST (TWO VIEWS) - CXR [address] [address] Name: BELLA MORILLO Phys: TODD REYES M.D. : 59 Age: 64 Sex: F Acct: [id number] Loc: AMADMIT Exam Date: 10/23/19 Status: PRE IN Radiology No.: [id number] Unit Number: [id number] Exam # Type/Exam [id number] RAD / CHEST (TWO VIEWS) - CXR [...] By: MECCA GONZALEZ M.D. Tests performed at: [address] [address] Normal [facility] CMPon 10-23-2019 A:G RATIO 1.48 Normal 1.1-2.5 [facility] Comment on above: Performed By: #### L 200.3001, L200.3190 #### - LABORATORY [address] [place] [address] 08135 Albumin [Mass/Vol] 4.0 g/dL Normal 3.5-5.2 [facility] Comment on above: Performed By: #### L 200.3001, L200.3190 #### ML - LABORATORY [address] [place] [address] 50871 ALK. PHOS 60 U/L Normal 35-105 [facility] Comment on above: Performed By: #### L 200.3001, L200.3190 #### ML - LABORATORY [address] [place] [address] 05205 ALT [Catalytic activity/Vol] 16 U/L Normal 5-33 [facility] Comment on above: Performed By: #### L 200.3001, L200.3190 #### [facility] [address] [place] [address] 91792 Anion gap [Moles/Vol] 15.1 mmol/L Normal 15-22 [facility] Comment on above: Performed By: #### L 200.3001, L200.3190 #### ML - LABORATORY [address] [place] [address] 15576 AST [Catalytic activity/Vol] 23 U/L Normal 5-32 [facility] Comment on above: Performed By: #### L 200.3001, L200.3190 #### ML - LAB[facility]ATORY [address] [place] [address] 48046 Bilirubin Ql (U) 0.3 mg/dL Normal 0.2-1.2 [facility] Comment on above: Performed By: #### L 200.3001, L200.3190 #### ML - LAB[facility]ATORY [address] [place] [address] 58315 Calcium [Mass/Vol] 9.4 mg/dL Normal 8.8-10.2 [facility] Comment on above: Performed By: #### L 200.3001, L200.3190 #### ML - [facility]AT[facility] [address] [place] [address] 37478 Chloride [Moles/Vol] 104 mmol/L Normal 98-107 [facility] Comment on above: Performed By: #### L 200.3001, L200.3190 #### ML - LABORATORY [address] [place] [address] 74555 CO2 [Moles/Vol] 28 mmol/L Normal 22-29 [facility] Comment on above: Performed By: #### L 200.3001, L200.3190 #### ML - LABORATORY [address] [place] [address] 96128 Creatinine [Mass/Vol] 1.07 mg/dL High 0.50-0.90 [facility] Comment on above: Performed By: #### L 200.3001, L200.3190 #### ML - LABORATORY [address] [place] [address] 85997 eGFR if AFR CLIFF > 60 ml/min/1.73m2 Normal [facility] Comment on above: Result Comment: eGFR [...] L 200.3001, L200.3190 #### ML - LABORATORY [address] [place] [address] 32202 eGFR nonAFR [place] 52 Normal [facility] Comment on above: Performed By: #### L 200.3001, L200.3190 #### ML - LABORATORY [address] [place] [address] 12914 Globulin (S) [Mass/Vol] 2.7 g/dL Normal 1.5-4.5 [facility] Comment on above: Performed By: #### L 200.3001, L200.3190 #### [facility] [address] [place] [address] 21444 Glucose [Mass/Vol] 107 mg/dL Normal 82-115 [facility] Comment on above: Performed By: #### L 200.3001, L200.3190 #### [facility] [address] [place] [address] 05986 Potassium [Moles/Vol] 4.1 mmol/L Normal 3.5-5.0 [facility] Comment on above: Performed By: #### L 200.3001, L200.3190 #### [facility] [address] [place] [address] 54801 Protein [Mass/Vol] 6.7 g/dL Normal 6.4-8.3 [facility] Comment on above: Performed By: #### L 200.3001, L200.3190 #### [facility] [address] [place] [address] 40910 Sodium [Moles/Vol] 143 mmol/L Normal 135-145 [facility] Comment on above: Performed By: #### L 200.3001, L200.3190 #### [facility] - [facility] [address] [place] [address] 34571 Urea nitrogen [Mass/Vol] 20 mg/dL Normal 8-23 [facility] Comment on above: Performed By: #### L 200.3001, L200.3190 #### [facility] - [facility] [address] [place] [address] 24056 UA W/C&Son 10-23-2019 Bilirubin Ql (U) Negative Normal NEGATIVE [facility] Comment on above: Performed By: #### L 200.3001, L200.3190 #### [facility] - [facility]AT[facility] [address] [place] [address] 89146 Color (U) YELLOW Normal YELLOW [facility] Comment on above: Performed By: #### L 200.3001, L200.3190 #### [facility] [address] [place] [address] 59345 Glucose Ql (U) Negative Normal NEGATIVE [facility] Comment on above: Performed By: #### L 200.3001, L200.3190 #### [facility] - [facility] [address] [place] [address] 81085 Hemoglobin Ql (U) Negative Normal NEGATIVE [facility] Comment on above: Performed By: #### L 200.3001, L200.3190 #### ML - [facility] [address] [place] [address] 70125 Leukocyte esterase Test strip Ql (U) MODERATE Normal NEGATIVE [facility] Comment on above: Performed By: #### L 200.3001, L200.3190 #### ML - [facility] [address] [place] [address] 50008 Nitrite Ql (U) Negative Normal NEGATIVE [facility] Comment on above: Performed By: #### L 200.3001, L200.3190 #### [facility] - [facility]ORY [address] [place] [address] 05632 pH (U) 6.0 [pH] Normal 5.0-8.0 [facility] Comment on above: Performed By: #### L 200.3001, L200.3190 #### [facility] - [facility] [address] [place] [address] 88698 Protein Ql (U) Negative Normal NEGATIVE [facility] Comment on above: Performed By: #### L 200.3001, L200.3190 #### [facility] - [facility] [address] [place] [address] 02843 URINE APPEARANC SL CLOUDY Normal CLEAR [facility] Comment on above: Performed By: #### L 200.3001, L200.3190 #### ML - LAB[facility]ATORY [address] [place] [address] 85990 URINE KETONE Negative Normal NEGATIVE [facility] Comment on above: Performed By: #### L 200.300, L200.3190 #### ML - LABORATORY [address] [place] [address] 54691 URINE SPECIFIC 1.025 Normal 1.001-1.03 5 [facility] Comment on above: Performed By: #### L 200.3001, L200.3190 #### [facility] - [facility] [address] [place] [id number] URINE UROBILINO 1.0 EU/DL Normal 0.2-1.0 [facility] Comment on above: Performed By: #### L 200.3001, L200.3190 #### [facility] - LAB[facility]ATORY [address] [place] [id number] UCon 10-23-2019 [facility] ORGANISM 1: NO GROWTH Normal [facility] Comment on above: Performed By: #### L 200.3001, L200.3190 #### [facility] - LABORATORY [address] [place] [id number] URINE MICROSCOPon 10-23-2019 Bacteria LM.HPF (Urine sed) [#/Area] 1+ Normal NEGATIVE [facility] Comment on above: Performed By: #### L 200.3001, L200.3190 #### ML - LABORATORY [address] [place] [address] 83104 Mucus Ql (Urine sed) TR Normal NEGATIVE [facility] Comment on above: Performed By: #### L 200.3001, L200.3190 #### ML - LABORATORY [address] [place] [address] 99400 RBC (U) [#/Vol] 1-3 Normal 0-2 [facility] Comment on above: Performed By: #### L 200.3001, L200.3190 #### ML - LABORATORY [address] [place] [address] 44011 SQUAMOUS FEW Normal NEGATIVE [facility] Comment on above: Performed By: #### L 200.3001, L200.3190 #### ML - LABORATORY [address] [place] [address] 81784 WBC (U) [#/Vol] 10-20 Normal 0-5 [facility] Comment on above: Performed By: #### L 200.3001, L200.3190 #### ML - LABORATORY [address] [place] [address] 73985 C-REACTIVE PROTon 08-22-2019 C-REACTIVE PROT 0.25 mg/dL Normal 0.00-0.50 [facility] Comment on above: Result Comment: STAT ED NORMAL RANGE IS FOR ADULTS ONLY. NO NORMAL RANGE HAS BEEN ESTABLISHED FOR CHILDREN. Performed By: #### L 200.3001, L200.3190 #### ML - LABORATORY [address] [place] [address] 66794 CBCon 08-22-2019 Basophils (Bld) [#/Vol] 0.20 x10(3) High 0.00-0.10 [facility] Comment on above: Performed By: #### L 200.0010, L200.1500 #### ML - LABORATORY [address] [place] [address] 45415 Basophils/100 WBC (Bld) 2.2 % High 0.0-1.0 [facility] Comment on above: Performed By: #### L 200.0010, L200.1500 #### ML - LABORATORY [address] [place] [address] 90585 Eosinophils (Bld) [#/Vol] 0.50 x10(3) Normal 0.00-0.54 [facility] Comment on above: Performed By: #### L 200.0010, L200.1500 #### ML - LABORATORY [address] [place] [address] 93605 Eosinophils/100 WBC (Bld) 7.2 % High 0.5-4.9 [facility] Comment on above: Performed By: #### L 200.0010, L200.1500 #### ML - LABORATORY [address] [place] [address] 33375 Erythrocyte distribution width (RBC) [Ratio] 15.5 % Normal 12.5-15.7 [facility] Comment on above: Performed By: #### L 200.0010, L200.1500 #### ML - LABORATORY [address] [place] [address] 95735 Hematocrit (Bld) [Volume fraction] 37.2 % Normal 36.0-48.0 [facility] Comment on above: Performed By: #### L 200.0010, L200.1500 #### ML - LABORATORY [address] [place] [address] 74791 Hemoglobin (Bld) [Mass/Vol] 12.2 g/dL Normal 12.0-16.0 [facility] Comment on above: Performed By: #### L 200.0010, L200.1500 #### ML - LABORATORY [address] [place] [address] 26941 Lymphocytes (Bld) [#/Vol] 1.40 x10(3) Normal 1.00-3.50 [facility] Comment on above: Performed By: #### L 200.0010, L200.1500 #### ML - LABORATORY [address] [place] [address] 23731 Lymphocytes/100 WBC (Bld) 19.8 % Normal 16.0-48.0 [facility] Comment on above: Performed By: #### L 200.0010, L200.1500 #### ML - LABORATORY [address] [place] [address] 26267 MCH (RBC) [Entitic mass] 29.1 pg Normal 28.5-32.9 [facility] Comment on above: Performed By: #### L 200.0010, L200.1500 #### ML - LABORATORY [address] [place] [address] 35243 MCHC (RBC) [Mass/Vol] 32.8 g/dL Low 33.0-36.0 [facility] Comment on above: Performed By: #### L 200.0010, L200.1500 #### ML - LABORATORY [address] [place] [address] 21903 MCV (RBC) [Entitic vol] 89.0 fL Normal 80.0-99.0 [facility] Comment on above: Performed By: #### L 200.0010, L200.1500 #### ML - LABORATORY [address] [place] [address] 35775 Monocytes (Bld) [#/Vol] 0.60 x10(3) Normal 0.30-0.80 [facility] Comment on above: Performed By: #### L 200.0010, L200.1500 #### ML [facility] [address] [place] [address] 80489 Monocytes/100 WBC (Bld) 9.3 % Normal 4.3-11.2 [facility] Comment on above: Performed By: #### L 200.0010, L200.1500 #### ML [facility] [address] [place] [address] 35459 Neutrophils (Bld) [#/Vol] 4.20 x10(3) Normal 1.40-6.50 [facility] Comment on above: Performed By: #### L 200.0010, L200.1500 #### ML [facility] [address] [place] [address] 41456 Neutrophils/100 WBC (Bld) 61.5 % Normal 45.0-73.0 [facility] Comment on above: Performed By: #### L 200.0010, L200.1500 #### ML - LABORATORY [address] [place] [address] 83170 Platelet mean volume (Bld) [Entitic vol] 8.9 fL Normal 7.5-9.5 [facility] Comment on above: Performed By: #### L 200.0010, L200.1500 #### ML [facility] [address] [place] [address] 03716 Platelets (Bld) [#/Vol] 244 X10(3) Normal 150-450 [facility] Comment on above: Performed By: #### L 200.0010, L200.1500 #### ML - LABORATORY [address] [place] [address] 05305 RBC (Bld) [#/Vol] 4.19 x10(6) Normal 3.30-5.00 [facility] Comment on above: Performed By: #### L 200.0010, L200.1500 #### ML - LABORATORY [address] [place] [address] 73595 WBC (Bld) [#/Vol] 6.8 x10(3) Normal 4.5-10.0 [facility] Comment on above: Performed By: #### L 200.0010, L200.1500 #### ML - LABORATORY [address] [place] [address] 22902 ESRon 08-22-2019 ESR (Bld) [Velocity] 15 mm/h Normal 0-20 [facility] Comment on above: Performed By: #### L 304.0162, L304.0140 #### ML - LABORATORY [address] [place] [address] 45585 NM BONE SCAN 3 PHASE [id number] 08-22-2019 NM BONE SCAN [address] [address] Name: BELLA MORILLO Luciano Phys: CEDRIC QUILES III, D.O. : 59 Age: 64 Sex: F Acct: [id number] Loc: [facility] Exam Date: 08/22/19 Status: REG CLI Radiology No.: [id number] Unit Number: [id number] Exam # Type/Exam [id number] NM / NM BONE SCAN 3 PHASE 50049 NM BONE SCAN WHOLE BODY THREE PHASE [...] By: SRIDHAR DÍAZ M.D. Tests performed at: [address] [address] Normal [facility] CALCIUMon 08-07-2019 Calcium [Mass/Vol] 9.6 mg/dL Normal 8.8-10.2 [facility] Comment on above: Performed By: #### L 200.3001, L200.3190 #### ML - LABORATORY [address] [place] [address] 82615 FERRITINon 08-07-2019 Ferritin [Mass/Vol] 16.5 ng/mL Normal 13-150 [facility] Comment on above: Performed By: #### L 200.3001, L200.3190 #### ML - LABORATORY [address] [place] [address] 36262 FREE T3on 08-07-2019 Free T3 [Mass/Vol] 1.3 pg/mL Low 2.0-4.4 [facility] Comment on above: Performed By: #### L 200.3001, L200.3190 #### ML - LABORATORY [address] [place] [address] 42847 Free T4on 08-07-2019 Free T4 [Mass/Vol] 0.21 ng/dL Low 0.93-1.7 [facility] Comment on above: Performed By: #### L 200.3001, L200.3190 #### ML - LABORATORY [address] [place] [address] 33918 IRON & TIBCon 08-07-2019 % FE. SAT. 14 % Normal 10-32 [facility] Comment on above: Performed By: #### L 100.0400 #### ML - LABORATORY [address] [place] [address] 30750 Iron [Mass/Vol] 62 ug/dL Normal 37-145 [facility] Comment on above: Performed By: #### L 100.0400 #### ML - [facility] [address] [place] [address] 77522 TIBC 440 mg/dL Normal 269-535 [facility] Comment on above: Performed By: #### L 100.0400 #### ML - LABORATORY [address] [place] [address] 68915 Transferrin [Mass/Vol] 314 mg/dL Normal 192-382 [facility] Comment on above: Performed By: #### L 100.0400 #### ML - LABORATORY [address] [place] [address] 58944 TSHon 08-07-2019 TSH Qn 20.79 uIU/mL High 0.27-4.20 [facility] Comment on above: Performed By: #### L 200.3001, L200.3190 #### ML - LABORATORY [address] [place] [address] 49180 VITAMIN Don 08-07-2019 VITAMIN D 31.4 ng/mL Normal 30-100 [facility] Comment on above: Performed By: #### L 200.3001, L200.3190 #### ML - LABORATORY [address] [place] [address] 60343 BD DXA - AXIAL SKELETONon BD DXA [...] of adult fracture and osteoporosis TECHNIQUE: DXA [employer] v.13.4 examination was performed on the lumbar [...] for Metabolic Bone Disease, a WHO Collaborating [place]. This applies to men over 50 and [...] at high risk for accelerated bone loss). [employer] Sales Manager: ANGIE Transcribe Date/Time: Jun 21 2019 3:28P Dictated by : AMILCAR PAREDES MD This examination was interpreted and the report reviewed and electronically signed by: AMILCAR PAREDES MD on Jun 21 2019 3:30PM EST Normal [facility] No Panel Information [facility] Vital Signs Date Time Vital Sign Value Performing Clinician Facility 12-19-2024 14:54-0400 Body height 168.9 cm Jcaiel Hurd MD Work Phone: [facility] 12-19-2024 14:54-0400 Body mass index (BMI) [Ratio] 24.01 kg/m2 Jaciel Hurd MD Work Phone: [facility] 12-19-2024 14:54-0400 Body weight 68.5 kg Jaciel Hudr MD Work Phone: [facility] 10-06-2024 10:57-0400 Body mass index (BMI) [Ratio] 23.49 kg/m2 Chi Zamora MD Work Phone: [facility] 10-06-2024 10:57-0400 Body weight 68.04 kg Chi Zamora MD Work Phone: [facility] 10-06-2024 10:57-0400 Diastolic blood pressure 73 mm[Hg] Chi fay MD Work Phone: [facility] 10-06-2024 10:57-0400 Heart rate 64 /min Chi Zamora MD Work Phone: [facility] 10-06-2024 10:57-0400 SaO2% (BldA) [Mass fraction] 98 % Chi Zamora MD Work Phone: [facility] 10-06-2024 10:57-0400 Systolic blood pressure 121 mm[Hg] Chi Zamora MD Work Phone: [facility] 09-22-2024 17:40-0400 SaO2% (BldA) [Mass fraction] 95 % [facility] ZAMOR[facility] Comment on above: Order Comment: Specimen Type: ARTERIAL B LOOD SPECIMENOrdering Facility: [facility] Address: [address] [place] [address] Performed By: #### A LLBG ####[facility] LABORATORYCLIA [id number] [place] [address] [place] 08-03-2024 12:43-0400 Diastolic blood pressure 65 mm[Hg] Satish Flynn MD Work Phone: [facility] 08-03-2024 12:43-0400 Heart rate 68 /min Satish Flynn MD Work Phone: [facility] 08-03-2024 12:43-0400 Respiratory rate 14 /min Satish Flynn MD Work Phone: [facility] 08-03-2024 12:43-0400 SaO2% (BldA) [Mass fraction] 100 % Satish Flynn MD Work Phone: [facility] 08-03-2024 12:43-0400 Systolic blood pressure 138 mm[Hg] Satish Deleon Work Phone: [facility] 08-03-2024 11:22-0400 Body mass index (BMI) [Ratio] 24.27 kg/m2 Satish Flynn MD Work Phone: [facility] 08-03-2024 11:22-0400 Body temperature 98.1 [degF] Satish Flynn MD Work Phone: [facility] 08-03-2024 11:22-0400 Body weight 70.3 kg Satish Flynn MD Work Phone: [facility] 07-20-2024 13:52-0400 Body height 170.2 cm Chi Zamora MD Work Phone: [facility] 07-20-2024 13:52-0400 Body mass index (BMI) [Ratio] 24.28 kg/m2 Chi Zamora MD Work Phone: [facility] 07-20-2024 13:52-0400 Body weight 70.31 kg Chi Zamora MD Work Phone: [facility] 07-20-2024 13:52-0400 Diastolic blood pressure 76 mm[Hg] Chi fay MD Work Phone: [facility] 07-20-2024 13:52-0400 Heart rate 58 /min Chi Zamora MD Work Phone: [facility] 07-20-2024 13:52-0400 Respiratory rate 16 /min Chi Zamora MD Work Phone: [facility] 07-20-2024 13:52-0400 SaO2% (BldA) [Mass fraction] 98 % Chi Zamora MD Work Phone: [facility] 07-20-2024 13:52-0400 Systolic blood pressure 132 mm[Hg] Chi Zamora MD Work Phone: [facility] 05-08-2024 09:13-0500 Body mass index (BMI) [Ratio] 25.2 kg/m2 Lindsey Zuniga Work Phone: [facility] 05-08-2024 09:13-0500 Body temperature 97.81 [degF] Lindsey Zuniga Work Phone: [facility] 05-08-2024 09:13-0500 Body weight 71.89 kg Lindsey Zuniga Work Phone: [facility] 05-08-2024 09:13-0500 Diastolic blood pressure 67 mm[Hg] Lindsey Zuniga Work Phone: [facility] 05-08-2024 09:13-0500 Heart rate 63 /min Lindsey Zuniga Work Phone: [facility] 05-08-2024 09:13-0500 SaO2% (BldA) [Mass fraction] 98 % Lindsey Zuniga Work Phone: [facility] 05-08-2024 09:13-0500 Systolic blood pressure 112 mm[Hg] Lindsey Zuniga Work Phone: [facility] 03-06-2024 12:19-0500 Diastolic Blood Pressure Non-Invasive 65 mm[Hg] DR ENRIQUE BASS MD [facility] 03-06-2024 12:19-0500 Heart rate 65 /min DR ENRIQUE BASS MD [facility] 03-06-2024 12:19-0500 Respiratory rate 23 /min DR ENRIQUE BASS MD [facility] 03-06-2024 12:19-0500 Systolic Blood Pressure Non-Invasive 133 mm[Hg] DR ENRIQUE BASS MD [facility] 03-06-2024 12:14-0500 Diastolic Blood Pressure Non-Invasive 69 mm[Hg] DR ENRIQUE BASS MD [facility] 03-06-2024 12:14-0500 Heart rate 67 /min DR ENRIQUE BASS MD [facility] 03-06-2024 12:14-0500 Respiratory rate 19 /min DR ENRIQUE BASS MD [facility] 03-06-2024 12:14-0500 Systolic Blood Pressure Non-Invasive 124 mm[Hg] DR ENRIQUE BASS MD [facility] 03-06-2024 12:08-0500 Diastolic Blood Pressure Non-Invasive 56 mm[Hg] DR ENRIQUE BASS MD [facility] 03-06-2024 12:08-0500 Heart rate 67 /min DR ENRIQUE BASS MD [facility] 03-06-2024 12:08-0500 Respiratory rate 20 /min DR ENRIQUE BASS MD [facility] 03-06-2024 12:08-0500 Systolic Blood Pressure Non-Invasive 116 mm[Hg] DR ENRIQUE BASS MD [facility] 03-06-2024 12:01-0500 Body temperature 98.06 [degF] DR ENRIQUE BASS MD [facility] 03-06-2024 11:55-0500 Respiratory Rate - Anes 13 br/min DR ENRIQUE Estevez MD [facility] 03-06-2024 11:50-0500 Respiratory Rate - Anes 18 br/min DR ENRIQUE Estevez MD [facility] 03-06-2024 11:13-0500 Body height 168.[address] ENRIQUE BASS MD [facility] 03-06-2024 11:13-0500 Body temperature 97.88 [degF] DR ENRIQUE BASS MD [facility] 03-06-2024 11:13-0500 Body weight [address] ENRIQUE BASS MD [facility] 03-06-2024 11:13-0500 Heart rate 68 /min DR ENRIQUE BASS MD [facility] 03-06-2024 11:07-0500 Body height 168.[address] ENRIQUE BASS MD [facility] 03-02-2024 07:57-0500 Body temperature 98.2 [degF] Treatment Wstr Work Phone: [facility] 03-02-2024 07:57-0500 Diastolic blood pressure 75 mm[Hg] Treatment Wstr Work Phone: [facility] 03-02-2024 07:57-0500 Heart rate 69 /min Treatment Wstr Work Phone: [facility] 03-02-2024 07:57-0500 Respiratory rate 18 /min Treatment Wstr Work Phone: [facility] 03-02-2024 07:57-0500 SaO2% (BldA) [Mass fraction] 98 % Treatment Wstr Work Phone: [facility] 03-02-2024 07:57-0500 Systolic blood pressure 128 mm[Hg] Treatment Wstr Work Phone: [facility] 02-28-2024 09:20-0500 Body mass index (BMI) [Ratio] 24.96 kg/m2 Treatment Wstr Work Phone: [facility] 02-28-2024 09:20-0500 Body temperature 98.2 [degF] Treatment Wstr Work Phone: [facility] 02-28-2024 09:20-0500 Body weight 71.2 kg Treatment Wstr Work Phone: [facility] 02-28-2024 09:20-0500 Diastolic blood pressure 73 mm[Hg] Treatment Wstr Work Phone: [facility] 02-28-2024 09:20-0500 Heart rate 63 /min Treatment Wstr Work Phone: [facility] 02-28-2024 09:20-0500 SaO2% (BldA) [Mass fraction] 92 % Treatment Wstr Work Phone: [facility] 02-28-2024 09:20-0500 Systolic blood pressure 120 mm[Hg] Treatment Wstr Work Phone: [facility] 02-24-2024 08:50-0400 Body temperature 97.9 [degF] Treatment Wstr Work Phone: [facility] 02-24-2024 08:50-0400 Diastolic blood pressure 76 mm[Hg] Treatment Wstr Work Phone: [facility] 02-24-2024 08:50-0400 Heart rate 62 /min Treatment Wstr Work Phone: [facility] 02-24-2024 08:50-0400 Respiratory rate 18 /min Treatment Wstr Work Phone: [facility] 02-24-2024 08:50-0400 SaO2% (BldA) [Mass fraction] 99 % Treatment Wstr Work Phone: [facility] 02-24-2024 08:50-0400 Systolic blood pressure 129 mm[Hg] Treatment Wstr Work Phone: [facility] 02-21-2024 08:00-0400 Body temperature 97.81 [degF] Treatment Wstr Work Phone: [facility] 02-21-2024 08:00-0400 Diastolic blood pressure 74 mm[Hg] Treatment Wstr Work Phone: [facility] 02-21-2024 08:00-0400 Heart rate 58 /min Treatment Wstr Work Phone: [facility] 02-21-2024 08:00-0400 Respiratory rate 18 /min Treatment Wstr Work Phone: [facility] 02-21-2024 08:00-0400 SaO2% (BldA) [Mass fraction] 96 % Treatment Wstr Work Phone: [facility] 02-21-2024 08:00-0400 Systolic blood pressure 124 mm[Hg] Treatment Wstr Work Phone: [facility] 02-17-2024 10:18-0400 Body temperature 97.5 [degF] Treatment Wstr Work Phone: [facility] 02-17-2024 10:18-0400 Diastolic blood pressure 69 mm[Hg] Treatment Wstr Work Phone: [facility] 02-17-2024 10:18-0400 Heart rate 69 /min Treatment Wstr Work Phone: [facility] 02-17-2024 10:18-0400 Respiratory rate 16 /min Treatment Wstr Work Phone: [facility] 02-17-2024 10:18-0400 SaO2% (BldA) [Mass fraction] 98 % Treatment Wstr Work Phone: [facility] 02-17-2024 10:18-0400 Systolic blood pressure 116 mm[Hg] Treatment Wstr Work Phone: [facility] 02-01-2024 10:33-0400 Body height 168.9 cm Lindsey Zuniga Work Phone: [facility] 02-01-2024 10:33-0400 Body mass index (BMI) [Ratio] 24.96 kg/m2 Lindseywood Zuniga Work Phone: [facility] 02-01-2024 10:33-0400 Body temperature 97.7 [degF] Lindsey Zuniga Work Phone: [facility] 02-01-2024 10:33-0400 Body weight 71.22 kg Lindsey Zuniga Work Phone: [facility] 02-01-2024 10:33-0400 Diastolic blood pressure 75 mm[Hg] Lindseywood Zuniga Work Phone: [facility] 02-01-2024 10:33-0400 Heart rate 64 /min Lindseywood Zuniga Work Phone: [facility] 02-01-2024 10:33-0400 SaO2% (BldA) [Mass fraction] 98 % Lindsey Zuniga Work Phone: [facility] 02-01-2024 10:33-0400 Systolic blood pressure 125 mm[Hg] Lindsey Zuniga Work Phone: [facility] 12-19-2023 09:08-0400 Body mass index (BMI) [Ratio] 24.57 kg/m2 Beverleyoscar Herronaugh PA-C Work Phone: [facility] 12-19-2023 09:08-0400 Body temperature 97.3 [degF] Beverley Slabaugh PA-C Work Phone: [facility] 12-19-2023 09:08-0400 Body weight 71.15 kg Beverley Slabaugh PA-C Work Phone: [facility] 12-19-2023 09:08-0400 Diastolic blood pressure 67 mm[Hg] Beverley Slabaugh PA-C Work Phone: [facility] 12-19-2023 09:08-0400 Heart rate 67 /min Beverley Germaineaugh PA-C Work Phone: [facility] 12-19-2023 09:08-0400 Respiratory rate 16 /min Beverley Germaineaugh PA-C Work Phone: [facility] 12-19-2023 09:08-0400 SaO2% (BldA) [Mass fraction] 99 % Beverleyoscar Herronaugh PA-C Work Phone: [facility] 12-19-2023 09:08-0400 Systolic blood pressure 136 mm[Hg] Beverleyoscar Herronaugh PA-C Work Phone: [facility] 09-13-2023 12:51-0400 Body mass index (BMI) [Ratio] 26.66 kg/m2 Chi Zamora MD Work Phone: [facility] 09-13-2023 12:51-0400 Body weight 77.2 kg Chi Zamora MD Work Phone: [facility] 09-13-2023 12:51-0400 Diastolic blood pressure 73 mm[Hg] Chi fay MD Work Phone: [facility] 09-13-2023 12:51-0400 SaO2% (BldA) [Mass fraction] 97 % Chi Zamora MD Work Phone: [facility] 09-13-2023 12:51-0400 Systolic blood pressure 118 mm[Hg] Chi Zamora MD Work Phone: [facility] 05-28-2023 13:22-0500 Body height 170.2 cm Lilia Martinez CAMPAIGN DEVELOPER.TOE POUNDER Work Phone: [facility] 05-28-2023 13:22-0500 Body weight 73.48 kg Lilia Martinez CAMPAIGN DEVELOPER.TOE POUNDER Work Phone: [facility] 05-28-2023 13:22-0500 Diastolic blood pressure 69 mm[Hg] Lilia Martinez CAMPAIGN DEVELOPER.TOE POUNDER Work Phone: [facility] 05-28-2023 13:22-0500 Heart rate 59 /min Lilia Martinez CAMPAIGN DEVELOPER.TOE POUNDER Work Phone: [facility] 05-28-2023 13:22-0500 SaO2% (BldA) [Mass fraction] 98 % Lilia Martinez CAMPAIGN DEVELOPER.TOE POUNDER Work Phone: [facility] 05-28-2023 13:22-0500 Systolic blood pressure 117 mm[Hg] Lilia Martinez CAMPAIGN DEVELOPER.TOE POUNDER Work Phone: [facility] 10-12-2022 09:31-0400 Body height 170.2 cm Gaye SKYC Work Phone: [facility] 10-12-2022 09:31-0400 Body weight 73.48 kg Gaye DENISE-C Work Phone: [facility] 10-12-2022 09:31-0400 Diastolic blood pressure 70 mm[Hg] Gaye DENISE-C Work Phone: [facility] 10-12-2022 09:31-0400 Systolic blood pressure 128 mm[Hg] Gaye Rowell PA-C Work Phone: [facility] 05-28-2022 09:46-0500 Body height 170.2 cm Chi Zamora MD Work Phone: [facility] 05-28-2022 09:46-0500 Body weight 73.48 kg Chi Zamora MD Work Phone: [facility] 05-28-2022 09:46-0500 Diastolic blood pressure 72 mm[Hg] Chi fay MD Work Phone: [facility] 05-28-2022 09:46-0500 Heart rate 70 /min Chi Zamora MD Work Phone: [facility] 05-28-2022 09:46-0500 SaO2% (BldA) [Mass fraction] 98 % Chi Zamora MD Work Phone: [facility] 05-28-2022 09:46-0500 Systolic blood pressure 140 mm[Hg] Chi Zamora MD Work Phone: [facility] 11-20-2021 12:44-0400 Diastolic blood pressure 68 mm[Hg] NUPUR Deleon [facility] 11-20-2021 12:44-0400 Heart rate 57 /min NUPUR JUNG MD [facility] 11-20-2021 12:44-0400 Respiratory rate 16 /min NUPUR JUNG MD [facility] 11-20-2021 12:44-0400 Systolic blood pressure 107 mm[Hg] NUPUR JUNG MD [facility] 11-20-2021 12:22-0400 Diastolic blood pressure 65 mm[Hg] NUPUR Deleon [facility] 11-20-2021 12:22-0400 Heart rate 62 /min NUPUR JUNG MD [facility] 11-20-2021 12:22-0400 Respiratory rate 16 /min NUPUR JUNG MD [facility] 11-20-2021 12:22-0400 Systolic blood pressure 111 mm[Hg] NUPUR JUNG MD [facility] 11-20-2021 11:44-0400 Diastolic blood pressure 67 mm[Hg] NUPUR Deleno [facility] 11-20-2021 11:44-0400 Heart rate 54 /min NUPUR JUNG MD [facility] 11-20-2021 11:44-0400 Respiratory rate 16 /min NUPUR JUNG MD [facility] 11-20-2021 11:44-0400 Systolic blood pressure 98 mm[Hg] NUPUR JUNG MD [facility] 11-20-2021 11:22-0400 Heart rate 59 /min NUPUR JUNG MD [facility] 11-20-2021 11:00-0400 Heart rate 58 /min NUPUR JUNG MD [facility] 11-20-2021 10:45-0400 Heart rate 55 /min NUPUR JUNG MD [facility] 11-20-2021 10:20-0400 Body height 170.2 cm NUPUR JUNG MD [facility] 11-20-2021 10:20-0400 Body temperature 97.7 [degF] NUPUR JUNG MD [facility] 11-20-2021 10:20-0400 Body weight 68.2 kg NUPUR JUNG MD [facility] 11-19-2021 22:54-0400 Diastolic blood pressure 88 mm[Hg] JANEEN CARLISLE MD [facility] 11-19-2021 22:54-0400 Heart rate 108 /min JANEEN CARLISLE MD [facility] 11-19-2021 22:54-0400 Mean blood pressure 102 mm[Hg] JANEEN CARLISLE MD [facility] 11-19-2021 22:54-0400 Respiratory rate 20 /min JANEEN CARLISLE MD [facility] 11-19-2021 22:54-0400 Systolic blood pressure 129 mm[Hg] JANEEN CARLISLE MD [facility] 11-19-2021 21:07-0400 Body height 170.2 cm JANEEN CARLISLE MD [facility] 11-19-2021 21:07-0400 Body temperature 99.5 [degF] JANEEN CARLISLE MD [facility] 11-19-2021 21:07-0400 Body weight 68.2 kg JANEEN CARLISLE MD [facility] 11-19-2021 21:07-0400 Diastolic blood pressure 76 mm[Hg] JANEEN CARLISLE MD [facility] 11-19-2021 21:07-0400 Heart rate 74 /min JANEEN CARLISLE MD [facility] 11-19-2021 21:07-0400 Mean blood pressure 99 mm[Hg] JANEEN CARLISLE MD [facility] 11-19-2021 21:07-0400 Respiratory rate 20 /min JANEEN CARLISLE MD [facility] 11-19-2021 21:07-0400 Systolic blood pressure 145 mm[Hg] JANEEN CARLISLE MD [facility] 10-08-2021 10:26-0400 Body height 170.2 cm Gaye Metrum Sweden PA-C Work Phone: [facility] 10-08-2021 10:26-0400 Body weight 73.48 kg Gaye Rowell PA-C Work Phone: [facility] 10-08-2021 10:26-0400 Diastolic blood pressure 82 mm[Hg] Gaye Rowell PA-C Work Phone: [facility] 10-08-2021 10:26-0400 Systolic blood pressure 142 mm[Hg] Gaye Rowell PA-C Work Phone: [facility] Encounters Encounter Date Encounter Type Care Provider Facility Start: 02-05-2025 End: 02-05-2025 ambulatory LINDSEY ZUNIGA Facility:[facility] Start: 01-30-2025 End: 01-30-2025 ambulatory YOLANDA CASH MD [facility] Start: 01-30-2025 End: 01-30-2025 Patient encounter procedure YOLANDA CASH MD [facility] Start: 01-23-2025 ambulatory CHI ZAMORA Facility:[facility] Start: 01-16-2025 End: 01-16-2025 ambulatory SRIDHAR MONTERO DO Facility[facility] Start: 01-16-2025 End: 01-16-2025 Patient encounter procedure SRIDHAR MONTERO DO [facility] Start: 12-19-2024 End: 12-19-2024 Patient encounter procedure Jaciel Hurd MD Work Phone: Orthopaedics Comment on above: Failure of total kne e replacement, subsequent encounter (Primary Dx) Start: 12-19-2024 End: 12-19-2024 ambulatory JACIEL HURD Facility:[facility] Start: 12-15-2024 ambulatory UNKNOWN PROVIDER Facili ty:[facility] Start: 12-15-2024 End: 12-15-2024 Subsequent hospital visit by physician Gi/Gu 1 [facility] Work Phone: Radiology Comment on above: Arthralgia of left l ower leg [M25.562] Start: 12-01-2024 End: 12-06-2024 Telephone encounter Jaciel Hurd MD Work Phone: Orthopaedics Start: 11-07-2024 End: 11-07-2024 ambulatory JACIEL HURD Facility:[facility] ital Start: 11-07-2024 End: 11-07-2024 Patient encounter procedure Jaciel Hurd MD Work Phone: Orthopaedics Comment on above: Arthralgia of left l ower leg (Primary Dx) Start: 11-07-2024 End: 11-07-2024 ambulatory DELFINA KYLAH ZAMAN Facility:[facility] ital Start: 11-07-2024 End: 11-08-2024 Subsequent hospital visit by physician [facility] Work Phone: Radiology Comment on above: Left knee pain, unsp ecified chronicity [M25.562] Arthralgia of left l ower leg (Primary Dx) Start: 11-06-2024 End: 11-06-2024 ambulatory LINDSEY ZUNIGA Facility:[facility] Start: 10-31-2024 End: 10-31-2024 ambulatory Jaciel Hurd MD Work Phone: Orthopaedics Comment on above: x-ray Left knee pain, unsp ecified chronicity (Primary Dx) Start: 10-31-2024 End: 10-31-2024 E-mail encounter from caregiver Jaciel Hurd MD Work Phone: Orthopaedics Start: 10-11-2024 End: 10-11-2024 Telephone encounter Chi Zamora MD Work Phone: [facility] Cardiology [place] Comment on above: Orders Start: 10-06-2024 End: 10-06-2024 Patient encounter procedure Chi Zamora MD Work Phone: [facility] Cardiology [place] Comment on above: Paroxysmal atrial fi brillation (HCC) (Primary Dx); PAC (premature atrial contraction); long term care pharmacist current use of anticoagulant Start: 10-06-2024 End: 10-06-2024 ambulatory CHI ZAMORA Facility:[facility] Start: 10-01-2024 End: 10-01-2024 Emergency department patient visit MARGARITA MIDDLETON [facility] Start: 09-27-2024 End: 09-27-2024 Refill Chi Zamora MD Work Phone: [facility] [place] Comment on above: Refill Request Start: 09-23-2024 End: 09-23-2024 Telephone encounter Tarah Goldsmith MD Work Phone: [place] PROVIDER ADULT Start: 09-22-2024 End: 09-23-2024 ambulatory CHI ZAMORA Facility:[facility] Start: 09-19-2024 End: 09-19-2024 Telephone encounter Chi Zamora MD Work Phone: [facility] Cardiology [place] Comment on above: Preparations For Pro cedures Start: 08-08-2024 End: 10-08-2024 Follow-up encounter Lindsey Zuniga Work Phone: Hematology/Oncology Start: 08-07-2024 End: 08-07-2024 ambulatory LINDSEY ZUNIGA Facility:[facility] Start: 08-04-2024 End: 08-04-2024 Telephone encounter Chi Zamora MD Work Phone: [facility]iology Comment on above: Patient Update Start: 08-03-2024 End: 08-03-2024 ambulatory SATISH FLYNN Facility:[facility] Start: 08-03-2024 End: 08-03-2024 Subsequent hospital visit [...] encounter Elizabeth Roger MD Work Phone: Gastroenterology [place] Comment on above: Orders Start: 07-20-2024 End: 07-20-2024 Patient encounter procedure Chi Zamora MD Work Phone: [facility] Cardiology [place] Comment on above: Paroxysmal atrial fi brillation (HCC) (Primary Dx); At risk for stroke; Anemia, unspecified type Start: 07-20-2024 End: 07-20-2024 ambulatory CHI ZAMORA Facility:[facility] Start: 07-07-2024 End: 07-10-2024 Telephone encounter Chi Zamora MD Work Phone: [facility]iology Comment on above: Patient Update Start: 07-05-2024 End: 07-05-2024 Emergency department patient visit MARGARITA MIDDLETON DO Facility:[facility] Start: 06-16-2024 End: 06-20-2024 ambulatory SRIDHAR MONTERO DO Facility:[facility] Start: 06-16-2024 End: 06-20-[address] VERONIKA HERNANDEZ DO [facility] Start: 06-16-2024 End: 06-16-[address] VERONIKA HERNANDEZ DO [facility] Start: 06-16-2024 End: 06-16-[address] VERONIKA HERNANDEZ DO [facility] Start: 05-08-2024 End: 05-08-2024 ambulatory Lindsey Zuniga Work Phone: Hematology/Oncology Comment on above: Iron deficiency anem ia, unspecified iron deficiency anemia type (Primary Dx); Iron 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 dietary iron intake; Anemia, unspecified type Start: 05-08-2024 End: 05-08-2024 Patient encounter procedure Lindsey Zuniga Work Phone: Hematology/Oncology Start: 05-04-2024 End: 05-04-2024 ambulatory LINDSEY ZUNIGA Facility:[facility] Start: 05-03-2024 End: 05-03-2024 ambulatory SRIDHAR MONTERO DO [facility] [place] Start: 05-03-2024 End: 05-03-2024 Patient encounter procedure SRIDHAR MONTERO DO [facility] Start: 03-31-2024 End: 03-31-2024 Refill Chi Zamora MD Work Phone: [facility] Cardiology [place] Comment on above: Refill Request Start: 03-06-2024 End: 03-06-2024 ambulatory ENRIQUE BASS [facility] Start: 03-06-2024 End: 03-06-[address] ENRIQUE BASS MD [facility] Start: 03-02-2024 End: 03-02-2024 ambulatory Treatment Rm 14 [facility] Work Phone: Hematology/Oncology Comment on above: Iron deficiency anem ia secondary to inadequate dietary iron intake (Primary Dx) Start: 02-28-2024 End: 02-28-2024 ambulatory LINDSEY ZUNIGA Hematology/Oncology Comment on above: Iron deficiency anem ia secondary to inadequate dietary iron intake (Primary Dx) Start: 02-28-2024 End: 02-28-2024 Patient encounter procedure Treatment Rm 15 Thierno [facility] Work Phone: Hematology/Oncology Start: 02-24-2024 End: 02-24-2024 ambulatory LINDSEY ZUNIGA Hematology/Oncology Comment on above: Iron deficiency anem ia secondary to inadequate dietary iron intake (Primary Dx) Start: 02-24-2024 End: 02-24-2024 Patient encounter procedure Treatment Rm 16 Thierno [facility] Work Phone: Hematology/Oncology Start: 02-23-2024 End: 02-23-2024 Refill Chi Zamora MD Work Phone: [facility] Cardiology [place] Comment on above: Refill Request SOCIAL WORK SERVICES (1ST TIME TREATMENT) Start: 02-23-2024 End: 02-23-2024 ambulatory [facility] Facility:[facility] Start: 02-21-2024 End: 02-21-2024 ambulatory LINDSEY ZUNIGA Hematology/Oncology Comment on above: Iron deficiency anem ia secondary to inadequate dietary iron intake (Primary Dx) Start: 02-21-2024 End: 02-21-2024 Patient encounter procedure Treatment Rm 16 Thierno [facility] Work Phone: Hematology/Oncology Start: 02-17-2024 End: 02-17-2024 ambulatory LINDSEY ZUNIGA Hematology/Oncology Comment on above: Iron deficiency anem ia secondary to inadequate dietary iron intake (Primary Dx) Start: 02-17-2024 End: 02-17-2024 Patient encounter procedure Treatment Rm 15 Thierno [facility] Work Phone: Hematology/Oncology Start: 02-16-2024 End: 02-16-2024 Telephone encounter Lindsey Zuniga Work Phone: Hematology/Oncology Start: 02-11-2024 End: 02-11-2024 Telephone encounter Financial Navigator Thierno Work Phone: Financial Services Comment on above: Benefits Investigati on Start: 02-03-2024 End: 02-08-2024 Telephone encounter Lindseywood Zuniga Work Phone: Hematology/Oncology Start: 02-02-2024 End: 02-02-2024 Patient encounter procedure YOLANDA CASH MD [facility] Start: 02-01-2024 End: 02-01-2024 ambulatory Lindsey Zuniga Work Phone: Hematology/Oncology Comment on above: Anemia, unspecified type (Primary Dx) Start: 02-01-2024 End: 02-01-2024 Patient encounter procedure Lindsey Zuniga Work Phone: Hematology/Oncology Start: 01-28-2024 End: 02-01-2024 Outreach Lab SRIDHAR MONTERO DO [facility] Start: 12-23-2023 End: 12-23-2023 Patient encounter procedure TROY SOLORIO [facility] Start: 12-20-2023 End: 12-21-2023 Emergency department patient visit [facility] Facility:[facility] Start: 12-19-2023 End: 12-19-2023 Patient encounter procedure Beverley Patrick PA-C Work Phone: [facility] Comment on above: Dysuria (Primary Dx) ; Urinary frequency; Urinary urgency Start: 12-01-2023 End: 12-01-2023 ambulatory YOLANDA CASH MD Facility:[facility] Start: 10-11-2023 End: 10-11-2023 ambulatory YOLANDA CASH MD Facility:[facility] Start: 10-11-2023 End: 10-11-2023 Patient encounter procedure YOLANDA CASH MD [facility] Start: 09-13-2023 End: 09-13-2023 Patient encounter procedure Chi Zamora MD Work Phone: [facility] Cardiology [place] Comment on above: Paroxysmal atrial fi brillation (HCC) (Primary Dx); half-way current use of antiarrhythmic drug; PAC (premature atrial contraction) Start: 07-12-2023 Telephone encounter Lilia alanis APRN.TOE POUNDER Work Phone: [place] PROVIDER ADULT Comment on above: Results Start: 06-15-2023 Telephone encounter Lilia alanis CAMPAIGN DEVELOPER.TOE POUNDER Work Phone: [facility] Cardiology [place] Comment on above: Results Start: 06-14-2023 Telephone encounter Lilia alanis CAMPAIGN DEVELOPER.TOE POUNDER Work Phone: [facility] Comment on above: Results Start: 06-14-2023 End: 06-14-2023 Subsequent hospital visit by physician Card Lab Stress 1 [place] [facility] Comment on above: History of atrial fi brillation [Z86.79] Start: 06-09-2023 Documentation procedure Mammography Coordinator [facility] Start: 06-09-2023 Letter encounter Mammography Coordinator [place] ANCILLARY AREA NOT LISTED Start: 06-08-2023 End: 06-08-2023 Subsequent hospital visit by physician Screen Mammo [place] [facility] Comment on above: Breast cancer screen ing by mammogram [Z12.31] Start: 05-28-2023 End: 05-28-2023 Patient encounter procedure Lilia Martinez APRN.TOE POUNDER Work Phone: [facility] Cardiology [place] Comment on above: History of atrial fi brillation (Primary Dx); PAC (premature atrial contraction); Palpitations; 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; At risk for stroke; Hyperkalemia Start: 05-12-2023 End: 05-12-2023 ambulatory YOLANDA CASH MD Facility:[facility] Start: 05-12-2023 End: 05-12-2023 Patient encounter procedure YOLANDA CASH MD [facility] Start: 04-08-2023 Refill Chi Zamora MD Work Phone: [facility] Cardiology [place] Comment on above: Refill Request Start: 02-26-2023 End: 03-02-2023 ambulatory IRIS BRANDT CAMPAIGN DEVELOPER-TOE POUNDER Facility:[facility] Start: 10-12-2022 End: 10-12-2022 Patient encounter procedure Gaye Rowell PA-C Work Phone: [facility] [employer] Comment on above: Women's annual routi ne gynecological examination (Primary Dx); Screening for malignant neoplasm of cervix; Breast cancer screening by mammogram; Encounter for colorectal cancer screening; Screening for osteoporosis; Menopause; Osteopenia, unspecified location; At high risk for fracture; Uterine leiomyoma, unspecified location Start: 07-13-2022 [facility] Jaciel Hurd MD Work Phone: Orthopaedics Comment on above: Knee Surgery Start: 07-13-2022 ambulatory Jaciel Deleon Work Phone: 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 Work Phone: Start: 05-22-2022 End: 05-22-[address] [facility], Specimen Start: 05-16-2022 Refill Lilia Desmond PERAZA Work Phone: [facility] Cardiology [place] Comment on above: Refill Request Start: 05-15-2022 End: 05-15-2022 Patient encounter procedure YOLANDA CASH MD [facility] Start: 05-06-2022 End: 05-06-2022 Patient encounter procedure SRIDHAR MONTERO DO [facility] Start: 04-05-2022 Documentation procedure Mammography Coordinator [facility] Start: 04-05-2022 Letter encounter Mammography Coordinator [place] ANCILLARY AREA NOT LISTED Start: 04-03-2022 End: 04-03-2022 Subsequent hospital visit by physician Screen [facility]o [place] [facility] Comment on above: SCREENING Start: 01-22-2022 End: 01-26-2022 Outreach Lab SRIDHAR TRAYEARNEST DO [facility] Start: 12-22-2021 End: 12-26-2021 Outreach Lab SRIDHAR MONTERO DO [facility] Start: 11-20-2021 End: 11-20-2021 Emergency department patient visit NUPUR JUNG MD [facility] Start: 11-19-2021 End: 11-19-2021 Emergency department patient visit JANEEN CARLISLE MD [facility] Start: 11-11-2021 End: 11-11-2021 Patient encounter procedure YOLANDA CASH MD [facility] Start: 10-08-2021 End: 10-08-2021 Patient encounter procedure Gaye Rowell PA-C Work Phone: [facility] Comment on above: Women's annual routi fl gynecological examination (Primary Dx); Screening for malignant neoplasm of cervix; Breast cancer screening by mammogram; Postmenopausal osteoporosis; At high risk for fracture; Atrophic vaginitis Start: 08-21-2021 End: 08-21-2021 Patient encounter procedure YOLANDA CASH MD [facility] Start: 07-22-2021 Refill Chi Zamora MD Work Phone: [facility] Cardiology [place] Comment on above: Refill Request Refill Request (LIOT HYRONINE) Start: 07-22-2021 Telephone encounter Sridhar Gillis MD Work Phone: [facility] General Endocrinology Comment on above: Future Appointment Start: 07-21-2021 Telephone encounter Chi Zamora MD Work Phone: [facility] Cardiology [place] Comment on above: Medication Problem Start: 07-08-2021 End: 07-12-2021 Outreach Lab ASIYA CURRY MD [facility] Start: 06-09-2021 End: 06-09-2021 Patient encounter procedure SRIDHAR MONTERO DO [facility] Start: 04-09-2021 End: 04-09-[address] GABRIELLE BRADSHAW MD [facility] Start: 11-08-2020 Office outpatient ne w 30 minutes Aida Gil Work Phone: [id number] Work Phone: Start: 11-28-2018 Patient encounter procedure Daysiaurelio Johnson [facility] Work Phone: Start: 08-15-2018 Patient encounter procedure Daysi Johnson [facility] Work Phone: Start: 07-13-2018 Patient encounter procedure Daysiaurelio Johnson [facility] Work Phone: Start: 06-01-2018 Patient encounter procedure Daysiaurelio Johnson [facility] Work Phone: Start: 02-08-2018 Patient encounter procedure Daysiaurelio Johnson [facility] Work Phone: Patient encounter procedure Aida Gil Work Phone: [id number] Work Phone: Patient encounter status Aida Gil Work Phone: [id number] Work Phone: Procedures Date Procedure Procedure Detail Performing Clinician Start: 12-15-2024 Arthrocentesis aspir &/inj major jt/bursa w/us Jose Gutierrez CAMPAIGN DEVELOPER.TOE POUNDER Work Phone: Start: 10-06-2024 Ecg routine ecg w/le ast 12 lds w/i&r Chi Zamora MD Work Phone: Start: 09-22-2024 Antibody screen CHI ZAMORA Comment on above: Order Comment: Speci men Type: BLOOD SPECIMENOrdering Facility: [facility] Address: [address] [place] [id number] Result Comment: Domenica ent has a previous clinically significant antibody Performed By: #### T SCR ####[facility] BLOOD BANKCLIA [id number] [place] [address] [place] Start: 08-03-2024 Colonoscopy [...] 2d w/wom-mode compl spec&colr d Lilia Martinez CAMPAIGN DEVELOPER.TOE POUNDER Work Phone: Start: 05-28-2023 Ecg routine ecg w/le ast 12 lds w/i&r Lilia Martinez CAMPAIGN DEVELOPER.TOE POUNDER Work Phone: Start: 07-09-2022 Radiologic examinati on knee 3 views Jose Gutierrez CAMPAIGN DEVELOPER.TOE POUNDER Work Phone: Start: 05-28-2022 Ecg routine ecg [...] Ganglion cyst (morph ologic abnormality) SRIDHAR MONTERO [employer] Comment on above: rt wrist History of Ant Spina l Diskectomy, Osteophytectomy Lumbar Interspace Daysi Johnson History of Catheter Ablation Daysi Johnson Comment on above: twice; History of Femur Repair Willie Johnson Comment on above: 2001 left ORIF; History of Knee Surgery Willie Johnson Comment on above: L done twice; Investigation of transfusion reaction Knee region structur e (body structure) SRIDHAR MONTERO [employer] Comment on above: torn cartilage-1974 Screening colonoscopy Daysi Johnson Comment on above: 2008-no polyps; Tonsillectomy Daysi Johnson Comment on above: 1961; Total knee replacement Rajesh Johnson Comment on above: 1974 & 1995 Left Kne e Partial Knee [id number] Total Knee Replacement x2; Right; Total knee replacement AUDRA MONTERO DO Comment on above: x3 2006 and 10/2019 Plan of Treatment Date Care Activity Detail Author Start: 2032 RSV Vaccine (1 - 1-dose 75+ series) RSV Vaccine (1 - 1-dose 75+ series) [facility] Start: 05-03-2032 Urine microalbumin profile [facility] Start: 09-24-2027 Diabetes Screening Diabetes Screening [facility] Start: 01-31-2027 Diabetes Screening Diabetes Screening [facility] Start: 10-08-2026 PAP TESTING PAP TESTING [facility] Start: 06-14-2026 Diabetes Screening Diabetes Screening [facility] Start: 09-18-2025 PAP TESTING PAP TESTING [facility] Start: 08-03-2025 Screening for malignant neoplasm of colon [facility] Start: 04-24-2025 End: 04-24-2025 ambulatory Hematology/Oncology Comment on above: 1YR OV / Q3MO LAB* 1YR OV/LAB EARLY* Start: 02-05-2025 End: 02-05-2025 ambulatory 02/05/2025 8:30 AM EDT Results Only Jewels [place] [facility] Laboratory [address] [place] [address] Q3MO LAB* [place] [facility] Comment on above: Q3MO LAB* Start: 01-23-2025 End: 01-23-2025 Patient encounter procedure 01/23/2025 11:00 AM EDT Office Visit [facility] [place] [address] [place] [address] Jonel White, CAMPAIGN DEVELOPER.TOE POUNDER [address] [place] [address] 4 month s/p PVI [facility] [place] Comment on above: 4 month s/p PVI Start: 12-29-2024 End: 12-29-2024 Patient encounter procedure 12/29/2024 3:00 PM EDT Office Visit [facility] [place] [facility] [address] [place] [address] Jonel White, CAMPAIGN DEVELOPER.TOE POUNDER [address] [place] [address] (Fax) 3mo f/u PAF. kh [facility] Comment on above: 3mo f/u PAF. kh Start: 12-26-2024 End: 12-26-2024 Patient encounter procedure 12/26/2024 10:30 AM EDT Appointment [facility] [address] [place] [address] Persistent atrial fibrillation (HCC) [I48.19] [facility] Comment on above: Persistent atrial fibrillation (HCC) [I4 8.19] Start: 12-26-2024 End: 12-26-2024 Patient encounter procedure 12/26/2024 8:30 AM EDT Appointment [facility] [address] [place] [address] Persistent atrial fibrillation (HCC) [I48.19] [facility] Comment on above: Persistent atrial fibrillation (HCC) [I4 8.19] Start: 12-25-2024 Influenza vaccination [facility] Start: 12-23-2024 End: 10-11-2025 Echocardiography ECHO Cardiology Routine Persistent atrial fibrillation (HCC) Dyspnea, unspecified type Expected: 12/23/2024, Expires: 10/11/2025 [facility] Work Phone: Comment on above: Expected: 12/23/2024, Expires: Start: 12-23-2024 End: 10-11-2025 OUTSIDE VENDOR CARDIAC OUTPATIENT EXTENDED RHYTHM RECORDING (WITHOUT TELEMETRY) OUTSIDE VENDOR CARDIAC OUTPATIENT EXTENDED RHYTHM RECORDING (WITHOUT TELEMETRY) Holter Routine Persistent atrial fibrillation (HCC) Expected: 12/23/2024, Expires: 10/11/2025 [facility] Comment on above: Expected: 12/23/2024, Expires: Start: 12-19-2024 End: 12-19-2024 Patient encounter procedure Orthopaedics Comment on above: lab and asp results Left TKA DOS 11/08/19 20 -- lab and asp results (LV 11/07/2024) Start: 12-15-2024 End: 12-15-2024 Patient encounter procedure 12/15/2024 1:00 PM EDT Appointment Radiology [address] [place] [address] Lt Knee Aspiration Radiology Comment on above: Lt Knee Aspiration Start: 11-07-2024 End: 11-07-2024 Patient encounter procedure Radiology Comment on above: L knee 3v lft knee Start: 11-06-2024 End: 11-06-2024 ambulatory 11/06/2024 8:30 AM EDT Results Only [facility] [address] [place] [address] Q3MO LAB* [facility] Laboratory Comment on above: Q3MO LAB* Start: 10-06-2024 End: 10-06-2024 Patient encounter procedure 10/06/2024 11:00 AM EDT Office Visit [facility] [place] [address] [place] [address] Chi Zamora MD [address] [place] [phone] 3 month [facility] [place] Comment on above: 3 month Start: 09-22-2024 Subsequent hospital visit by physician 09/22/2024 Hospital Encounter [facility] [address] [place] [address] Chi Zamora MD [address] [place] [phone] (Fax) Paroxysmal atrial fibrillation (HCC) [I48.0] [facility] Comment on above: Paroxysmal atrial fibrillation (HCC) [I4 8.0] Start: 08-07-2024 End: 08-07-2024 ambulatory [facility] Comment on above: Q3MO* Q3MO LAB* Start: 08-03-2024 End: 08-03-2024 Patient encounter procedure 08/03/2024 1:00 PM EDT Appointment Ambulatory Surgery [address] [place] [address] Satish Flynn MD [address] [place] [address] Ambulatory Surgery Start: 07-20-2024 End: 07-20-2024 Patient encounter procedure 07/20/2024 2:00 PM EDT Office Visit [facility] [place] [address] [place] [address] Chi Zamora MD [address] [place] [phone] Review/Discuss options [facility] Comment on above: Review/Discuss options Start: 06-08-2024 Screening for malignant neoplasm of breast Mammogram Screening [facility] Start: 05-08-2024 End: 05-08-2024 ambulatory 05/08/2024 9:30 AM EST Visit (SP) Office Hematology/Oncology [address] [place] [address] Lindsey Zuniga [address] [place] [address] OV/LABS 05/04* Hematology/Oncology Comment on above: OV/LABS 05/04* Start: 05-04-2024 End: 05-04-2024 ambulatory 05/04/2024 10:00 AM EST Results Only Jewels Sch[place]wn [facility] Laboratory [address] [place] [address] CBC/IRON STUDIES* [facility] [place] [facility] Comment on above: CBC/IRON STUDIES* Start: 04-26-2024 Advance Directive Discussion Advance Directive Discussion [facility] Start: 04-26-2024 Medicare Advantage Annual Wellness Visit Medicare Advantage Annual Wellness Visit [facility] Start: 03-02-2024 End: 03-02-2024 ambulatory Hematology/Oncology Comment on above: QWK IRON SUCROSE 300/C3-3/AUTH EXP 04/25* 2ND Start: 02-28-2024 End: 02-28-2024 ambulatory Hematology/Oncology Comment on above: 2ND Start: 02-24-2024 End: 02-24-2024 ambulatory Hematology/Oncology Comment on above: QWK IRON SUCROSE 300/C2-3/AUTH EXP 04/25* 2ND Start: 02-21-2024 End: 02-21-2024 ambulatory 02/21/2024 9:00 AM EDT Visit (SP) Office Hematology/Oncology [address] [place] [address] 2ND Hematology/Oncology Comment on above: 2ND Start: 02-17-2024 End: 02-17-2024 ambulatory Hematology/Oncology Comment on above: START QWK IRON SUCROSE 300/C1-3/AUTH EXP 04/25/24* 2ND Start: 02-01-2024 End: 05-02-2024 Methylmalonate [Moles/volume] in Serum or Plasma [facility] Work Phone: Comment on above: Expected: 02/01/2024, Expires: Start: 12-26-2023 Covid-19 Vaccine () Covid-19 Vaccine () [facility] Start: 12-26-2023 Influenza vaccination [facility] Start: 10-20-2023 End: 10-20-2023 Patient encounter procedure 10/20/2023 9:30 AM EDT Office Visit CP [facility] [address] [place] [address] [id number] Chiquis Lino MD [address] [place], [place] [id number] Annual [facility] Comment on above: Annual Start: 10-13-2023 COLORECTAL CANCER SCREENING COLORECTAL CANCER SCREENING [facility] Start: 10-13-2023 FECAL OCCULT BLOOD FECAL OCCULT BLOOD [facility] Start: 10-13-2023 Screening for malignant neoplasm of colon [facility] Start: 07-05-2023 HPV TESTING HPV TESTING [facility] Start: 06-01-2023 Lipid panel Lipid Screening [facility] Start: 05-28-2023 End: 08-27-2023 Basic metabolic 2000 panel - Serum or Plasma BASIC METABOLIC PNL Lab Routine History of atrial fibrillation PAC (premature atrial contraction) Palpitations half-way current use of antiarrhythmic drug Hyperkalemia Expected: 05/28/2023, Expires: 08/27/2023 [facility] Work Phone: Comment on above: Expected: 05/28/2023, Expires: Start: 04-26-2023 Advance Directive Discussion Advance Directive Discussion [facility] Start: 04-26-2023 Behavioral Health Screening Behavioral Health Screening [facility] Start: 04-26-2023 Depression Assessment Depression Assessment [facility] Start: 04-03-2023 Mammography MAMMOGRAM [facility] Start: 04-03-2023 Screening for malignant neoplasm of breast Mammogram Screening [facility] Start: 12-25-2022 Covid-19 Vaccine ( season) Covid-19 Vaccine ( season) [facility] Start: 12-25-2022 Influenza vaccination [facility] Start: 11-19-2022 DIABETES SCREEN DIABETES SCREEN [facility] Start: 11-19-2022 Diabetes Screening Diabetes Screening [facility] Start: 10-08-2022 Adult depression screening assessment DEPRESSION SCREENING [facility] Start: 2022 ADVANCE DIRECTIVE DISCUSSION ADVANCE DIRECTIVE DISCUSSION [facility] Start: 2022 Pneumococcal Vaccine: 65+ (1 - PCV) Pneumococcal Vaccine: 65+ (1 - PCV) [facility] Start: 2022 Pneumococcal Vaccine: 65+ (1 of 1 - PCV) Pneumococcal Vaccine: 65+ (1 of 1 - PCV) [facility] Start: 2022 PNEUMOCOCCAL: 65+ (1 - PCV) PNEUMOCOCCAL: 65+ (1 - PCV) [facility] Start: 2022 Screening for osteoporosis Bone Density Screening [facility] Start: 07-18-2022 End: 09-17-2022 C reactive protein [Mass/volume] in Serum or Plasma C-REACTIVE PROTEIN (CRP) Lab Routine Status post revision of total replacement of left knee Expected: 07/18/2022, Expires: 09/17/2022 [facility] Work Phone: Comment on above: Expected: 07/18/2022, Expires: 3 Start: 07-18-2022 End: 09-17-2022 CBC panel - Blood by Automated count CBC Lab Routine Status post revision of total replacement of left knee Expected: 07/18/2022, Expires: 09/17/2022 [facility] Work Phone: Comment on above: Expected: 07/18/2022, Expires: 3 Start: 07-18-2022 End: 09-17-2022 Comprehensive metabolic 2000 panel - Serum or Plasma COMP METABOLIC PANEL Lab Routine Status post revision of total replacement of left knee Expected: 07/18/2022, Expires: 09/17/2022 [facility] Work Phone: Comment on above: Expected: 07/18/2022, Expires: 3 Start: 07-18-2022 End: 09-17-2022 Erythrocyte sedimentation rate SED RATE WESTERGREN Lab Routine Status post revision of total replacement of left knee Expected: 07/18/2022, Expires: 09/17/2022 [facility] Work Phone: Comment on above: Expected: 07/18/2022, Expires: 3 Start: 07-18-2022 End: 09-17-2022 TYPE AND SCREEN,30 DAY TYPE AND SCREEN,30 DAY Blood Bank Routine Status post revision of total replacement of left knee Expected: 07/18/2022, Expires: 09/17/2022 [facility] Work Phone: Comment on above: Expected: 07/18/2022, Expires: 3 Start: 05-22-2022 [facility] Start: 04-26-2022 DEPRESSION ASSESSMENT DEPRESSION ASSESSMENT [facility] Start: 12-25-2021 Influenza vaccination [facility] Start: 10-03-2021 Mammography MAMMOGRAM [facility] Start: 09-18-2021 Adult depression screening assessment DEPRESSION SCREENING [facility] Start: 09-18-2021 COLORECTAL CANCER SCREENING COLORECTAL CANCER SCREENING [facility] Start: 09-18-2021 FECAL OCCULT BLOOD FECAL OCCULT BLOOD [facility] Start: 08-25-2021 COVID-19 VACCINE (4 - Booster for Pfizer series) COVID-19 VACCINE (4 - Booster for Pfizer series) [facility] Start: 06-22-2021 COVID-19 VACCINE (4 - Booster for Pfizer series) COVID-19 VACCINE (4 - Booster for Pfizer series) [facility] Start: 04-26-2021 DEPRESSION ASSESSMENT DEPRESSION ASSESSMENT [facility] Start: 02-11-2021 Lipid panel Lipid Screening [facility] Start: 02-11-2021 LIPID SCREEN LIPID SCREEN [facility] Start: 12-25-2020 Influenza vaccination INFLUENZA (#1) [facility] Start: 2017 RSV Vaccine (1 - 1-dose 60+ series) RSV Vaccine (1 - 1-dose 60+ series) [facility] Start: 2017 RSV Vaccine (1 - Risk 60-74 years 1-dose series) RSV Vaccine (1 - Risk 60-74 years 1-dose series) [facility] Start: 06-29-2017 Colonoscopy COLONOSCOPY [facility] Start: 06-29-2017 Screening for malignant neoplasm of colon Colonoscopy [facility] Start: 07-29-2007 Pneumococcal Vaccine: 50+ (1 of 1 - PCV) Pneumococcal Vaccine: 50+ (1 of 1 - PCV) [facility] Start: 07-29-2007 SHINGRIX VACCINE (1 of 2) SHINGRIX VACCINE (1 of 2) [facility] Start: 2002 COLOGUARD (FIT-DNA) COLOGUARD (FIT-DNA) [facility] Start: [address] COLONOGRAPHY [facility] Start: 2002 Screening for malignant neoplasm of colon [facility] Start: 2002 SIGMOIDOSCOPY SIGMOIDOSCOPY [facility] Start: 1976 Urine microalbumin profile DTAP,TDAP,TD (1 - Tdap) [facility] Start: 07-29-1975 ANNUAL PCP TEAM CHRONIC DISEASE VISIT ANNUAL PCP TEAM CHRONIC DISEASE VISIT [facility] Start: 07-29-1975 Anxiety Screening Anxiety Screening [facility] Start: 07-29-1975 Depression Screening Depression Screening [facility] Start: 07-29-1975 HEPATITIS C SCREENING HEPATITIS C SCREENING [facility] Start: 07-29-1975 Hepatitis C screening Hepatitis C Screening [facility] Start: 07-29-1975 HIV SCREENING HIV SCREENING [facility] Start: 07-29-1975 HIV screening HIV Screening [facility] Acid fast bacilli culture [facility] Bacteria identified in Body fluid by Culture BACTERIAL CULTURE AND GRAM STAIN, STERILE BODY FLUID Microbiology Routine Arthralgia of left lower leg Ordered: 11/07/2024 [facility] Comment on above: Ordered: 11/07/2024 Bacteria identified in Urine by Culture URINE CULTURE Microbiology Routine Dysuria Urinary frequency Urinary urgency Ordered: 12/19/2023 [facility] Work Phone: Comment on above: Ordered: 12/19/2023 End: 05-08-2025 CBC W Auto Differential panel - Blood COMPLETE BLOOD COUNT AND DIFFERENTIAL Lab STAT Iron 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 dietary iron intake Anemia, unspecified type Every 3 months for 5 Occurrences starting 05/08/2024 until 05/08/2025 [facility] Comment on above: Every 3 months for 5 Occurrences startin g 05/08/2024 until 05/08/2025 DXA-AXIAL SKELETON DXA-AXIAL SKE LETON Radiology Routine Screening for osteoporosis Menopause 1 Occurrences starting 10/12/2022 [facility] [employer] Work Phone: Comment on above: 1 Occurrences starting 10/12/2022 End: 05-28-2024 Echocardiography ECHO Cardiology Routine History of atrial fibrillation PAC (premature atrial contraction) Palpitations 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 1 Occurrences starting 05/28/2023 until 05/28/2024 [facility] Work Phone: Comment on above: 1 Occurrences starting 05/28/2023 until 05/28/2024 Ephys evl trnsptl tx atrial fib isolat pulm vein COMPRE EP EVAL ABLTJ ATR FIB PULM VEIN ISOLATION Paroxysmal atrial fibrillation (HCC) [facility] End: 05-28-2024 EXTENDED WEAR ASSISTANT MANAGER PT PATCH EXTENDED WEAR ASSISTANT MANAGER PT PATCH ECG Routine History of atrial fibrillation PAC (premature atrial contraction) Palpitations half-way current use of antiarrhythmic drug 1 Occurrences starting 05/28/2023 until 05/28/2024 [facility] Work Phone: Comment on above: 1 Occurrences starting 05/28/2023 until 05/28/2024 End: 05-08-2025 Ferritin [Mass/volume] in Serum or Plasma FERRITIN Lab Routine Iron 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 dietary iron intake Anemia, unspecified type Every 3 months for 5 Occurrences starting 05/08/2024 until 05/08/2025 [facility] Comment on above: Every 3 months for 5 Occurrences startin g 05/08/2024 until 05/08/2025 End: 12-07-2025 Guidance for arthrocentesis of Major joint US ASP/INJ KNEE JT/BURSA LEFT Radiology Routine Arthralgia of left lower leg 1 Occurrences starting 11/07/2024 until 12/07/2025 [facility] Work Phone: Comment on above: 1 Occurrences starting 11/07/2024 until 12/07/2025 End: 08-14-2026 Guidance for injection of Knee IMAGING GUIDED KNEE INJECTION LEFT Radiology Routine Arthralgia of left lower leg 1 Occurrences starting 11/08/2024 until 12/07/2025 [facility] Work Phone: Comment on above: 1 Occurrences starting 11/08/2024 until 12/07/2025 End: 12-31-2025 Guidance for injection of Knee IMAGING GUIDED KNEE ASPIRATION LEFT Radiology Routine Arthralgia of left lower leg 1 Occurrences starting 12/04/2024 until 12/31/2025 [facility] Work Phone: Comment on above: 1 Occurrences starting 12/04/2024 until 12/31/2025 End: 05-08-2025 Iron and Iron binding capacity panel - Serum or Plasma IRON AND TIBC Lab Routine Iron 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 dietary iron intake Anemia, unspecified type Every 3 months for 5 Occurrences starting 05/08/2024 until 05/08/2025 [facility] Work Phone: Comment on above: Every 3 months for 5 Occurrences startin g 05/08/2024 until 05/08/2025 End: 04-03-2022 NILO SCREENING [facility] Work Phone: Comment on above: 1 Occurrences starting 04/03/2022 until 04/03/2022 NILO SCREENING NILO SCREENING Ra diology Routine Breast cancer screening by mammogram 1 Occurrences starting 10/12/2022 [employer] Work Phone: Comment on above: 1 Occurrences starting 10/12/2022 MG Breast Screening NILO SCREENIN G Radiology Routine Breast cancer screening by mammogram 06/08/2023 10:59 AM EST [facility] Work Phone: Mycobacterium sp identified in Unspecified specimen by Organism specific culture [facility] PAP REFLEX HPV MRNA WHEN ASCUS PAP REFLEX HPV MRNA WHEN ASCUS Lab Routine Women's annual routine gynecological examination Screening for malignant neoplasm of cervix Ordered: 10/08/2021 [employer] Work Phone: Comment on above: Ordered: 10/08/2021 PAP REFLEX HPV MRNA WHEN ASCUS PAP REFLEX HPV MRNA WHEN ASCUS Lab Routine Women's annual routine gynecological examination Screening for malignant neoplasm of cervix Ordered: 10/12/2022 [employer] Work Phone: Comment on above: Ordered: 10/12/2022 End: 07-21-2025 Screening colonoscopy COLONOSCOPY SCREENING Endoscopy Routine Personal history of colon cancer 1 Occurrences starting 07/21/2024 until 07/21/2025 [facility] Work Phone: Comment on above: 1 Occurrences starting 07/21/2024 until 07/21/2025 End: 11-07-2022 Screening mammography bi 2-view breast inc cad NILO SCREENING Radiology Routine Breast cancer screening by mammogram 1 Occurrences starting 10/08/2021 until 11/07/2022 [employer] Work Phone: Comment on above: 1 Occurrences starting 10/08/2021 until 11/07/2022 SYNOVIAL FLUID, ROUTINE SYNOVIAL FLUID, ROUTINE Lab Routine Arthralgia of left lower leg Ordered: 11/07/2024 [facility] Comment on above: Ordered: 11/07/2024 End: 12-01-2025 XR Knee AP and Lateral and Merchants XR KNEE POST OP 3V AP/LAT/MERCHANT LEFT Radiology Routine Left knee pain, unspecified chronicity 1 Occurrences starting 10/31/2024 until 12/01/2025 [facility] Work Phone: Comment on above: 1 Occurrences starting 10/31/2024 until 12/01/2025 XR Knee AP and Later al and Merchants XR KNEE POST OP 3V AP/LAT/MERCHANT LEFT Radiology Routine Left knee pain, unspecified chronicity 11/07/2024 3:15 PM EDT [facility] Work Phone: End: 07-17-2023 XR KNEE POST OP 3V AP/LAT/MERCHANT LEFT XR KNEE POST OP 3V AP/LAT/MERCHANT LEFT Radiology Routine Left knee pain, unspecified chronicity 1 Occurrences starting 06/18/2022 until 07/17/2023 [facility] Work Phone: Comment on above: 1 Occurrences starting 06/18/2022 until 07/17/2023 [facility] Immunizations Immunization Date Immunization Notes Care Provider Artie ham 05-03-2022 tetanus toxoid, redu rabia diphtheria toxoid, and acellular pertussis vaccine, adsorbed SRIDHAR TRAYEARNEST [facility] 04-27-2021 SARS-CoV-2 mRNA (tozinameran) vaccine SRIDHAR MONTERO DO [facility] 08-02-2020 Pfizer-BioNTech COVI D-19 Vacc 30 MCG/0.3ML Intramuscular Suspension Aida Gil Work Phone: [facility] 07-25-2020 SARS-CoV-2 mRNA (tozinameran) vaccine SRIDHAR MONTERO DO [facility] 07-10-2020 Pfizer-BioNTech COVI D-19 Vacc 30 MCG/0.3ML Intramuscular Suspension Aida Gil Work Phone: [facility] 06-24-2020 SARS-CoV-2 (COVID-19 ) mRNA-1273 vaccine SRIDHAR MONTERO DO [facility] 04-26-2017 diphtheria and tetan us toxoids, adsorbed for pediatric use SRIDHAR MONTERO DO [facility] Payers Date Payer Category Payer Self-pay [id number] 2023 Private Health Insurance 4da [id number] 2023 Unknown 2021 [place] [id number] 2021-Present [phone] [address] [place] [address] [place] [id number] 2021 Medicare [employer] [id number] 2021-Present [phone] [address] [place] [address] [place] [id number] 2021 [place] ([place] Care[place] [id number] 2021 Medicare [id number] 1955 Unknown [id number]. 2. 1957 Unknown [id number]. 2. 1957 Unknown [id number] .[id number]. 2. 1957 Unknown [id number] .[id number]. 2. 1957 Unknown [id number] .840.1.621658.3.579. 2. 1957 Unknown [id number] 2.16.840.1.402645.3.579. 2. 1957 Unknown [id number] 2.16.840.1.074732.3.579. 2. 1957 Unknown [id number] 2.16.840.1.890812.3.579. 2. 1957 Unknown [id number] 2.16.840.1.844882.3.579. 2. 1957 Unknown [id number] 2.16.840.1.186994.3.579. 2. 1957 Unknown [id number] 2.16.840.1.949674.3.579. 2. 1957 Unknown [id number] 2.16.840.1.240532.3.579. 2. 1957 Unknown [id number] 2.16.840.1.546938.3.579. 2.7 1957 Unknown [id number] 2.16.840.1.624786.3.579. 2.627 Unknown [id number] 2.16.840.1.107881.3.579. 2.462 Unknown [id number] [id number]. 2.462 Social History Date Type Detail Facility Start: 09-08-2016 End: 10-12-2022 [facility] Comment on above: Homemaker; HS Grad; Quit smoking at abou t 30 years old; Start: 1955 Sex Assigned At Female [facility] Start: 06-06-2021 End: 12-23-2023 Ex-smoker (finding) [facility] Comment on above: Quit at age 31 yrs Start: 08-17-1977 End: 08-18-1987 History of tobacco use Current smoker [facility] Start: 08-17-1977 End: 08-18-1987 History of tobacco use Cigarette Smoker [facility] Start: 06-09-2021 End: 12-19-2024 Alcohol intake Current drinker of alcohol (finding) [facility] Start: 01-17-2020 History SDOH Alcohol Frequency 4 [facility] Start: 01-17-2020 History SDOH Alcohol Std Drinks 1 [facility] Start: 1955 Sex Assigned At Not on file C [facility] Start: 05-24-2021 End: 10-08-2021 Exposure to SARS-CoV-2 (event) Not sure [facility] Start: 09-08-2016 End: 07-20-2024 Tobacco use and exposure Smokeless tobacco non-user [facility] Start: 06-11-2021 Tobacco smoking stat us ARIS Unknown if ever smoked [facility] Start: 01-17-2020 End: 10-12-2022 Alcohol Use Disorder Identification Test - Consumption [AUDIT-C] [facility] How often to you hav e a drink containing alcohol? 2-3 time sa week [facility] How many standard dr inks containing alcohol do you have on a typical day? 1 or 2 [facility] How often do you hav e 6 or more drinks on 1 occasion? Never [facility] Start: 03-27-2012 Adult Depression Screening Assessment 0 [facility] Work Phone: Sexual Orientation Corinne H gualberto [facility] Start: 09-19-2020 Sex Female (finding) [facility] NEGATED: Highlighted [facility] Work Phone: Medical Equipment Procedure Code Equipment Code Equipment Origin al Text Equipment Identifier Dates Total replacement of knee joint DOUGH,CEMENT [id number] FDA Start: 06-25-2021 Total replacement of knee joint DOUGH,CEMENT [id number] FDA Start: 06-25-2021 Total replacement of knee joint METAL ALTERNATIVE CR FEMORAL FDA Start: 06-25-2021 Total replacement of knee joint ([id number]) Uncoated knee tibia prosthesis, metallic [id number] FDA Start: 06-25-2021 Total replacement of knee joint ([id number]) Uncoated knee tibia prosthesis, metallic ()[id number] FDA Start: 06-25-2021 Total replacement of knee joint ([id number]) Polyethylene patella prosthesis ()[id number] FDA Start: 06-25-2021 Total replacement of knee joint ([id number]) Tibial insert ()[id number] FDA Start: 06-25-2021 Goals Date Patient Goal Desired Activity /State Personal health goal Functional Status Date Assessment Result Facility 09-23-2024 Are you deaf, or do you have serious difficulty hearing No 09/23/2024 10:53 AM Liz Levin, SHAWN No [facility] 09-23-2024 Are you blind, or do you have serious difficulty seeing, even when wearing glasses No 09/23/2024 10:53 AM Liz Levin RN No [facility] 09-23-2024 Do you have serious difficulty walking or climbing stairs No 09/23/2024 10:53 AM Liz Levin RN No [facility] 09-23-2024 Do you have difficul ty dressing or bathing No 09/23/2024 10:53 AM Liz Levin, SHAWN No [facility] 09-23-2024 Because of a physica l, mental, or emotional condition, do you have difficulty doing errands alone such as visiting a physician's office or shopping No 09/23/2024 10:53 AM Liz Levin RN No [facility] 03-06-2024 Functional Status Awake [facility] 03-06-2024 Functional Status Maintained [facility] 11-20-2021 Functional Status Assistive Device None [facility] 11-19-2021 Functional Status Assistive Device None [facility] 11-19-2021 Functional Status Room check performed [facility] NEGATED: Highlighted row Functional performance Functional status health issues are not documented Disease [facility] Work Phone: Mental Status Date Assessment Result Facility 09-23-2024 Because of a physical, mental, or emotional condition, do you have serious difficulty concentrating, remembering, or making decisions No 09/23/2024 10:53 AM EDT Liz Vasquez RN No [facility] 03-06-2024 Mental Status Oriented x 4 [facility] 03-06-2024 Mental Status [facility] 11-20-2021 Mental Status Orientation Ori nted x 4 [facility] 11-20-2021 Mental Status [facility] 11-19-2021 Mental Status Orientation [facility] x 4 [facility] 11-19-2021 Mental Status [facility] NEGATED: Highlighted row Cognitive function [Interpretation] Cognitive status health issues are not documented Disease [facility] Work Phone: Clinical Notes 10-12-2017 to 01-23-2025 Jaciel Hurd MD - 12/19/2024 8:11 PM EDTSOlena carter RT(R) - 12/15/2024 1:00 PM EDTTelephone Encounter - Margarita Reynolds RN - 12/01/2024 3:45 PM EDTSJaciel lim MD - 11/07/2024 3:41 PM EDT Note Date & Type Note Facility 01-23-2025 Note HNO ID: [id number] Author: CECILIA PEREZ RN Service: ? Author Type: Registered Nurse Type: Patient Education Filed: 01/23/2025 13:44 Note Text: Patient educated on 7 day patch monitor, and verbalizes understanding. [facility] 01-23-2025 Note HNO ID: [id number] Author: OSEAS IZAGUIRRE MD Service: ? Author [...] Triplets were present. Agree with technical interpretation. [facility] 12-19-2024 Note HNO ID: [id number] Author: JACIEL HURD MD Service: ? Author [...] which included preparing to see the patient, [id number] patient care, completing clinical documentation, obtaining and/or reviewing separately obtained history, performing a medically appropriate examination, counseling and educating the patient/family/caregiver, ordering medications, tests, or procedures, communicating with other HCPs (not separately reported), independently interpreting results (not separately reported), communicating results to the patient/family/caregiver, and care coordination (not separately reported). Jaciel Hurd MD Orthopaedic Surgery [facility] 12-19-2024 History of Presen t illness Narrative [...] which included preparing to see the patient, [id number] patient care, completing clinical documentation, obtaining and/or reviewing separately obtained history, performing a medically appropriate examination, counseling and educating the patient/family/caregiver, ordering medications, tests, or procedures, communicating with other HCPs (not separately reported), independently interpreting results (not separately reported), communicating results to the patient/family/caregiver, and care coordination (not separately reported). Jaciel Hurd MD Orthopaedic Surgery documented in this encounter [facility] 12-15-2024 History of Presen t illness Narrative [...] PATIENT PRESENTS WITH AN IMPLANTABLE OR ATTACHED BUSINESS SERVICES TECH: No RADIOLOGY DEPARTMENT: General X-ray: Exam(s) Completed: ASPIRATION LEFT KNEE PERIPHERAL IV DATA: Not applicable SIGNED BY: WILLIAMS Brar) December 15, 2024 1:56 PM documented in this encounter [facility] 12-15-2024 Note HNO ID: [id number] Author: OLENA WHITTINGTON RT(R) Service: Radiology Author [...] PATIENT PRESENTS WITH AN IMPLANTABLE OR ATTACHED BUSINESS SERVICES TECH: No RADIOLOGY DEPARTMENT: General X-ray: Exam(s) Completed: ASPIRATION LEFT KNEE PERIPHERAL IV DATA: Not applicable SIGNED BY: WILLIAMS Brar) December 15, 2024 1:56 PM [facility] 12-01-2024 Telephone encounter Note An L knee injection order was entered instead of an aspiration order. Please place a IMAGING GUIDED KNEE ASPIRATION LEFT order. [facility] 12-01-2024 Miscellaneous Notes An L knee injection order was entered instead of an aspiration order. Please place a IMAGING GUIDED KNEE ASPIRATION LEFT order. documented in this encounter [facility] 11-07-2024 Note HNO ID: [id number] Author: JACIEL HURD MD Service: ? Author [...] active extension. -Did have aspirate postoperatively with [employer] results: -Neg CRP -Neg alpha defensin -479 [...] which included preparing to see the patient, [id number] patient care, completing clinical documentation, obtaining and/or reviewing separately obtained history, performing a medically appropriate examination, counseling and educating the patient/family/caregiver, ordering medications, tests, or procedures, communicating with other HCPs (not separately reported), independently interpreting results (not separately reported), communicating results to the patient/family/caregiver, and care coordination (not separately reported). Jaciel Hurd MD Orthopaedic Surgery [facility] 11-07-2024 History of Presen t illness Narrative [...] which included preparing to see the patient, [id number] patient care, completing clinical documentation, obtaining and/or reviewing separately obtained history, performing a medically appropriate examination, counseling and educating the patient/family/caregiver, ordering medications, tests, or procedures, communicating with other HCPs (not separately reported), independently interpreting results (not separately reported), communicating results to the patient/family/caregiver, and care coordination (not separately reported). Jaciel Hurd MD Orthopaedic Surgery documented in this encounter [facility] 11-07-2024 History of Presen t illness Narrative [...] PATIENT PRESENTS WITH AN IMPLANTABLE OR ATTACHED BUSINESS SERVICES TECH: No RADIOLOGY DEPARTMENT: General X-ray: Exam(s) Completed: Lower Extremity X-Ray(s): Knee, AP / Lat / Merchant Left and Wt. Bearing PERIPHERAL IV DATA: Not applicable SIGNED BY: Daljit Mitchell November 07, 2024 3:16 PM documented in this encounter [facility] 11-07-2024 Note HNO ID: [id number] Author: JASMYN ZUNIGA Tech Service: Radiology Author Type: Web Developer Programmer Type: Progress Notes Filed: 11/07/2024 15:17 Note [...] PATIENT PRESENTS WITH AN IMPLANTABLE OR ATTACHED BUSINESS SERVICES TECH: No RADIOLOGY DEPARTMENT: General X-ray: Exam(s) Completed: Lower Extremity X-Ray(s): Knee, AP / Lat / Merchant Left and Wt. Bearing PERIPHERAL IV DATA: Not applicable SIGNED BY: Daljit Mitchell November 07, 2024 3:16 PM [facility] 10-11-2024 Telephone encounter Note Post PVAI orders pended for signature [facility] 10-11-2024 Miscellaneous Notes Post PVAI orders pended for signature documented in this encounter [facility] 10-06-2024 Note HNO ID: [id number] Author: CHI ZAMORA MD Service: ? Author Type: Physician Type: Progress Notes Filed: 10/06/2024 11:38 Note Text: Heart and Vascular [place] [facility] SECTION OF CARDIAC PACING and ELECTROPHYSIOLOGY OUTPATIENT VISIT DATE October 06, 2024 OUTPATIENT VISIT TYPE ESTABLISHED PRIMARY CARE PHYSICIAN: Sridhar Montero IV [address] [place] [address] HISTORY OF PRESENT ILLNESS: rior history, edited as needed: 69 year female with history of PAF, s/p catheter ablation approximately 25 years ago and repeat radiofrequency ablation at [facility] in 2012, has been maintained on low-dose propafenone for symptomatic PACs, PXU2-SY7-RVOb score of 1 for gender only, not [...] attention. She is not on anticoagulation. Her OYV7-VI3-HXHb score is currently 2, for gender and [...] Normal appearance. HENT: (more content not included)... [facility] 10-06-2024 History of Presen t illness Narrative Images from the original note were not included. [facility] [place] [facility] SECTION OF CARDIAC PACING and ELECTROPHYSIOLOGY OUTPATIENT VISIT DATE October 06, 2024 OUTPATIENT VISIT TYPE ESTABLISHED PRIMARY CARE PHYSICIAN: Sridhar Montero IV [address] [place] [address] HISTORY OF PRESENT ILLNESS: rior history, edited as needed: 69 year female with history of PAF, s/p catheter ablation approximately 25 years ago and repeat radiofrequency ablation at [facility] in 2012, has been maintained on low-dose propafenone for symptomatic PACs, HXT8-VD4-ITVd score of 1 for gender only, not [...] attention. She is not on anticoagulation. Her DDC7-OF7-OLUy score is currently 2, for gender and [...] to be effective 3. long term care pharmacist current use of anticoagulant - ICD9: V58.61, ICD10: Z79.01 - Risk/benefit ratio of continued oral anticoagulation remains favorable. Chi Zamora MD CONTACT INFORMATION: Chi Zamora MD documented in this encounter [facility] 10-01-2024 Hospital Discharg e instructions Patient Education [...] or as directed by your healthcare provider [phone] [employer]. [address] [place] [address]. All rights reserved. This information is not intended as a substitute for professional medical care. Always follow your healthcare professional's instructions. Follow Up Care 10/01/2024 11:05:41 With:follow up with orthopedics Address:Unknown When:2-4 days With:SRIDHAR MONTERO Address: [address] [place], [place] [phone] Business (1) When:2-4 days With:Go to emergency room if symptoms worsen Address:Unknown When:2-4 days [facility] 10-01-2024 Note Discharge Instructions Thank you for allowing [facility] to assist you with your healthcare needs. [...] with SRIDHAR MONTERO When:Within 2-4 days Where:[address] [facility] [place] [phone] Business (1) Follow Up with Go to [...] When Why Instructions Last Dose Unchanged acetaminophen-hydrocodone (F[place]yth 325- 5 mg oral tablet) 1 tab(s) by mouth Two (2) times a day Knee osteoarthritis Duration: 30 Days fill on or after 2024 Unchanged acetaminophen-hydrocodone (Forsyth 325- 5 mg oral tablet) 1 tab(s) [...] or as directed by your healthcare provider [phone] [employer]. [address] [place] [address]. All rights reserved. This information is not intended as a substitute for professional medical care. Always follow your healthcare professional's instructions. Additional Information VACCINATE! IT SAVES LIVES! Members of the community who have not yet received the COVID-19 vaccine and would like to receive it can visit one of [facility] vaccine clinics. There are many vaccine clinic locations within the [facility]. For locations and available times, please visit [email or web address] It is important to note that some COVID mobile vaccine clinics are held outdoors and may be canceled in rainy or stormy conditions. To learn more about pediatric vaccinations (ages 5-11), we invite you to visit the [facility] webpage. [email or web address] To learn more about the COVID-19 vaccine, we invite you to visit the CDC website for a list of frequently asked questions. https://www.cdc.gov/coronavirus/ 2019-ncov/vaccines/faq.html [facility] Patient Portal Access Instructions: Stay connected with your healthcare team and access your personal medical information anytime with the [facility] Patient Portal. If you would like a full copy of your medical records please contact the [facility] Medical Records Department Wednesday through Wednesday between 8a.m. and 4:30p.m. Please follow the directions below to access the portal: 1.Access the email account you provided upon registration to the [facility].2.Look for an invitation email from [facility].3.Open the email and access the invitation link: Accept Invitation to [facility]4.Fill in the required kwok to create your account. Sign into www.[employer] with your username and password that you [...] you will allow to register on the [facility] Patient Portal for access to your information. You can also access the [facility] Patient Portal on the [employer] lilia. Simply click on Health Records under Health Data and then click on the [employer] logo. HOW TO SAFELY DISPOSE OF PRESCRIPTION [...] Call your local pharmacy or go to [email or web address] to find one close to you.3.Make use of household items: Use cat litter or old coffee grounds to dispose medications if other options are not available. Mix your drugs with these household products, seal them in an airtight container and throw it into the garbage. Call [facility]: [phone] to be sure your drugs can be [...] aware that I should contact my doctor. Patient/Rebar Worker Signature: Date/Time: Relationship to Patient: Witness Name/Signature: Date/Time: [facility] 10-01-2024 Note Exam Date Time Procedure Performing Provider Status 10/01/24 12:17 PM XR Femur Minimum 2 Views Left YURIDIA YANEZ MD; Auth (Verified) [id number] ORIGINAL EXAMINATION: 4 XRAY VIEWS OF THE [...] 10/01/2024 12:36:21 PM Ordering Provider: MARGARITA MIDDLETON [facility]06-04-2025 Telephone encounter Note* Telephone Encounter - Archana [...] above. Please process accordingly. Archana Carrion LPN [facility]06-04-2025 Miscellaneous Notes* Telephone Encounter - Archana Carrion [...] accordingly. Archana Carrion LPN documented [facility] this encounterSum[facility]05-31-2025 Telephone encounter Note * Telephone Encounter - Tarah Goldsmith MD - 09/23/2024 10:01 AM EDT Patient discharged post PFA Demar and Afib Needs post discharge monitoring echo and follow ups to be placed Tarah Goldsmith MD [facility]05-31-2025 Miscellaneous Notes* Telephone Encounter - Tarah Goldsmith MD - 09/23/2024 10:01 AM EDT Patient discharged post PFA Demar and Afib Needs post discharge monitoring echo and follow ups to be placed Tarah Goldsmith MD documented in this encounterSumma Health05-31-2025 NoteHNO ID: [id number] Author: LILY MARIA PA-C Service: Neurology ICU Author Type: Physician Signal Circuit Designer Type: Progress Notes Filed: 09/23/2024 07:17 Note [...] anesthesia ==== STAFF COORDINATION OF CRITICAL CARE [facility] Staff Physician note of personal [...] AND ACTION(S) TAKEN Please see the documented [id number]-[id number] plan in the updated problem list. Plan [...] Sepulveda DO, PhD Staff, Neurointensive Care [facility] [place] Date of Service: 09/23/2024 Time [...] and Airways Line Duration Peripheral 09/22/24 1414 [facility] Right Hand 20 Gauge <1 day Peripheral 09/22/24 1502 Left Antecubital 20 Gauge <1 day Drain Duration External Collection Device (more content not included)...[facility]05-30-2025 NoteHNO ID: [id number] Author: ROSSANA SEPULVEDA DO, PhD Service: Neurology [...] Neuro check q 4 Plan for obs overnightBridgton Hospital05-30-2025 NoteHNO ID: [id number] Author: SYDNIE COX, SHAWN Service: Nursing Author Type: Registered Nurse Type: Progress Notes Filed: 09/22/2024 16:43 Note Text: Report given to rapid response RN at pt moved to 3202 by team.[facility]05-30-2025 NoteHNO ID: [id number] Author: SYDNIE COX, SHAWN Service: Nursing Author Type: Registered Nurse Type: Progress Notes Filed: 09/22/2024 16:48 Note Text: Gag reflex checked 0 gag noted. Still no response to painful stimuli.[facility]05-30-2025 NoteHNO ID: [id number] Author: SYDNIE COX, RN Service: Nursing Author Type: Registered Nurse Type: Progress Notes Filed: 09/22/2024 16:35 Note Text: Pt returned to PACU spot 23[facility] NoteHNO ID: [id number] Author: SYDNIE COX, RN Service: Nursing Author Type: Registered Nurse Type: Progress Notes Filed: 09/22/2024 16:17 Note Text: Pt to CT scanner with stroke teamBridgton Hospital05-30-2025 NoteHNO ID: [id number] Author: SYDNIE COX, RN Service: Nursing Author Type: Registered Nurse Type: Progress Notes Filed: 09/22/2024 16:14 Note Text: REDUCTION PLANT SUPERVISOR at BS Assessing Pt. And on phone with Stroke Neurologist. New IV placed #20 in RH placed.[facility]05-30-2025 NoteHNO ID: [id number] Author: SYDNIE COX, SHAWN Service: Nursing Author Type: Registered Nurse Type: Progress Notes Filed: 09/22/2024 16:10 Note Text: Stroke team to [facility]05-30-2025 NoteHNO ID: [id number] Author: SYDNIE COX, SHAWN Service: Nursing Author Type: Registered Nurse Type: Progress Notes Filed: 09/22/2024 16:26 Note Text: FSBS checked 106[facility]25 NoteHNO ID: [id number] Author: SYDNIE COX, SHAWN Service: Nursing Author Type: Registered Nurse Type: Progress Notes Filed: 09/22/2024 16:18 Note Text: BS ABG with POC testing being completed at this time from LW. No response from pt with ABG stick. Narcan and Flumazenil ordered.[facility] 09-22-2024 NoteHNO ID: [id number] Author: SYDNIE COX, RN Service: Nursing Author Type: Registered Nurse Type: Progress Notes Filed: 09/22/2024 15:52 Note Text: Dr. Montague to BS to Assess pt.[facility]05-30-2025 NoteHNO ID: [id number] Author: SYDNIE COX, RN Service: Nursing Author Type: Registered Nurse Type: Progress Notes Filed: 09/22/2024 16:59 Note Text: Pt not responding to sternal rub and to questions pt not moving extemities no response to nail bed pressure, Dr. Montague called and notified. Pt noted to have decerebrate posturing, roving eye movement with pupil checks and furrowed brow. That is the only response from pt.[facility]05-30-2025 NoteHNO ID: [id number] Author: CHRISTINA ROSEN APRN.CRNA Service: Anesthesiology Author Type: Nurse Field Interviewer Type: Anesthesia Procedure Notes Filed: 09/22/2024 12:54 Note Text: ANESTHESIOLOGY PROCEDURE NOTE Airway General Information Procedure Start Time/Medication Administration: 09/22/2024 12:47 PM Procedure End Time: 09/22/2024 12:47 PM Patient location during procedure: OR Timeout Performed Pre-procedure: timeout performed Consent Obtained: Yes Patient identity confirmed: arm band and patient Staffing CIAIO COUNTER MOLDER: Christina Rosen APRN.CIAIO COUNTER MOLDER Performed by: LASHANDA Indications and Patient Condition [...] attempts at approach: 1 SIGNATURE: Christina Rosen APRN.CIAIO COUNTER MOLDER PATIENT NAME: Bella Morillo DATE: September 22, 2024 TIME: 12:54 PM CSN: [id number]. [facility] Telephone encounter Note* Telephone Encounter - Lynnette Welch RN - 09/19/2024 12:56 PM EDT Called Bella Morillo to relay Twyla's message, recommendations, and plan. Pt verbalized understanding and agreeable to start Eliquis today, avoid NSAIDS, and the planned timeline for continuing uninterrupted OAC post procedure. Additionally she understands she may also need BRAYN prior to ablation if she is found to be afib dayof procedure. Lynnette Welch RN [facility]05-27-2025 Miscellaneous Notes* Telephone Encounter - Lynnette Welch [...] daily (about every 12 hours) to the [facility] pharmacy listed on her chart. She should [...] before the procedure. You will need a motorcycle delivery driver when released from the hospital and you will stay overnight for observation. You should continue to take medications as prescribed the morning of the procedure with just a sip of water unless otherwise instructed. H&P morning of Left message for Bella Morillo to call back and confirm date & instructions Margarita Rangel Office use: documented in this encounterSumma Health05-27-2025 Note* Addendum Note - Lilia Martinez APRN.CNP - 09/19/2024 12:44 PM EDTAddended by: LILIA MARTINEZ on: 09/19/2024 12:44 PM Modules accepted: Orders [facility]05-27-2025 Telephone encounter Note* Telephone Encounter - Lilia Martinez APRN.CNP - 09/19/2024 12:36 PM EDT Will send Eliquis 5 mg twice daily (about every 12 hours) to the [facility] pharmacy listed on her chart. She should avoid NSAIDS while taking Eliquis to decrease risk of bleeding. She should start the medication today and if she presents for ablation in sinus rhythm will proceed, if she is in atrial fibrillation, will need BRYAN prior to ablation. She will then continue Eliquis uninterrupted for at least3 months post ablation. Thank you. Lilia Martinez APRN.TOE POUNDER [facility]05-27-2025 Telephone encounter Note* Telephone Encounter - Lynnette Welch RN - 09/19/2024 11:53 AM EDT Bella Morillo called back and is agreeable to date. Relayed Margarita's instructions and she voiced understanding. Pt's name has been added to ramirez procedure board. Pt reports she is not on OAC. Was intention to start pre-procedure? Lynnette Welch RN [facility]05-27-2025 Telephone encounter Note* Telephone Encounter - Margarita [...] before the procedure. You will need a motorcycle delivery driver when released from the hospital and you will stay overnight for observation. You should continue to take medications as prescribed the morning of the procedure with just a sip of water unless otherwise instructed. H&P morning of Left message for Bella A Liyajannie to call back and confirm date & instructions Margarita Rangel Office use: [facility]04-11-2025 Note* Addendum Note - Chi Zamora MD - 08/04/2024 2:06 PM EDTAddended by: CHI ZAMORA on: 08/04/2024 02:06 PM Modules accepted: Orders [facility]04-11-2025 Miscellaneous Notes* Addendum Note - Chi Zamora [...] time. Jasmyn Wood LPN documented in this encounterSumma Health04-11-2025 Telephone encounter Note * Telephone Encounter - Chi Zamora MD - 08/04/2024 2:04 PM EDT OK, will arrange. Chi Zamora MD [facility]04-11-2025 Telephone encounter Note* Telephone Encounter - Jasmyn Wood LPN - 08/04/2024 1:13 PM EDT Bella Morillo called in and states colonoscopy has been completed. She would like to schedule ablation at this time. Jasmyn Wood LPN [facility]04-10-2025 Note* Discharge Instr - Nursing - Camelia Clarke RN - 08/03/2024 12:22 PM EDT The patient received a copy of Colonoscopy discharge instructions that contain information for how to contact the physician who performed the procedure and when to seek medical care. [facility]04-10-2025 Miscellaneous Notes* Discharge Instr - Nursing - Camelia Clarke RN - 08/03/2024 12:22 PM EDT The patient received a copy of Colonoscopy discharge instructions that contain information for how to contact the physician who performed the procedure and when to seek medical care. documented in this encounterSumma Health04-10-2025 History and physical note * Satish Flynn [...] significant constipation and occasional upset stomach. Taking swazi perfecto as needed. 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 [...] > 4 years ago, [facility] in [place] [address] [place]. Reviewed would recommend repeat screening colonoscopy with a new DANITA diagnosis. Started on [place] by Dr Montero for knee pain. Denies [...] with any questions or concerns. Lindsey Zuniga APRN.TOE POUNDER UPDATED HISTORY AND PHYSICAL EXAMINATION SERVICE DATE: [...] DATE: August 03, 2024 TIME: 11:11 AM [facility]04-10-2025 History and physical note* Satish Flynn MD [...] significant constipation and occasional upset stomach. Taking swazi perfecto as needed. 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 [...] > 4 years ago, [facility] in [place] [address] [place]. Reviewed would recommend repeat screening colonoscopy with a new DANITA diagnosis. Started on [place] by Dr Montero for knee pain. Denies [...] with any questions or concerns. Lindsey Zuniga APRN.TOE POUNDER UPDATED HISTORY AND PHYSICAL EXAMINATION SERVICE DATE: [...] 2024 TIME: 11:11 AM documented in this encounterSumma Health03-28-2025 Instructions* Patient Instructions* Kylie Galeas - 07/21/2024 [...] am on dialysis? A: Please consult your treasury accountant prior to scheduling to get instructions pertinent [...] rest of the day. documented in this encounterSumma Health03-28-2025 Telephone encounter Note * Telephone Encounter - [...] BMI over 45, can't be scheduled in [place], If BMI is 40-45, must schedule an airway check priorto scheduling in [place]) Tracheostomy new or old No If yes, [...] at home? No If yes, give to CIAIO COUNTER MOLDER to evaluate. Chest pain or shortness of breath on exertion? No If yes, give to CIAIO COUNTER MOLDER to evaluate. Any kidney/liver disease or on dialysis? No If cirrhosis pt., have CIAIO COUNTER MOLDER review chart History of COPD/Emphysema/Asthma/or Sleep Apnea? No If uses an inhaler, have pt bring inhaler with them. On any blood thinners? No (Coumadin, Plavix, ASA, Xarelto, Brilinta, Eliquis, Pradaxa, Efficent etc.) If yes, have patient contact prescribing physician about stopping prior to procedure. Do you have a history of seizures? No If yes, when was last seizure? [facility]03-28-2025 Miscellaneous Notes* Telephone Encounter - Kylie Galeas [...] BMI over 45, can't be scheduled in [place], If BMI is 40-45, must schedule an airway check priorto scheduling in [place]) Tracheostomy new or old No If yes, [...] at home? No If yes, give to CIAIO COUNTER MOLDER to evaluate. Chest pain or shortness of breath on exertion? No If yes, give to CIAIO COUNTER MOLDER to evaluate. Any kidney/liver disease or on dialysis? No If cirrhosis pt., have CIAIO COUNTER MOLDER review chart History of COPD/Emphysema/Asthma/or Sleep Apnea? No If uses an inhaler, have pt bring inhaler with them. On any blood thinners? No (Coumadin, Plavix, ASA, Xarelto, Brilinta, Eliquis, Pradaxa, Efficent etc.) If yes, have patient contact prescribing physician about stopping prior to procedure. Do you have a history of seizures? No If yes, when was last seizure? documented in this encounterSumma Health03-27-2025 NoteHNO ID: [id number] Author: CHI ZAMORA MD Service: ? Author Type: Physician Type: Progress Notes Filed: 07/20/2024 14:52 Note Text: Heart and Vascular [place] [facility] SECTION OF CARDIAC PACING and ELECTROPHYSIOLOGY OUTPATIENT VISIT DATE July 20, 2024 OUTPATIENT VISIT TYPE ESTABLISHED PRIMARY CARE PHYSICIAN: Sridhar Montero IV [address] [place] [address] HISTORY OF PRESENT ILLNESS: Prior history, edited as needed: 68 year female with history of PAF, s/p catheter ablation approximately 25 years ago and repeat radiofrequency ablation at [facility] in 2012, has been maintained on low-dose propafenone for symptomatic PACs, SEE2-AY2-MGLy score of 1 for gender only, not [...] attention. She is not on anticoagulation. Her EUN7-UF2-WLGv score is currently 2, for gender and [...] Negative for chest pain. (more content not included)...[facility]03-27-2025 History of Present illness Narrative* Chi Zamora MD - 07/20/2024 2:44 PM EDT Images from the original note were not included. Heart [facility] V[facility] [place] [facility] SECTION OF CARDIAC PACING and ELECTROPHYSIOLOGY OUTPATIENT VISIT DATE July 20, 2024 OUTPATIENT VISIT TYPE ESTABLISHED PRIMARY CARE PHYSICIAN: Sridhar Montero IV [address] [place] [address] HISTORY OF PRESENT ILLNESS: Prior history, edited as needed: 68 year female with history of PAF, s/p catheter ablation approximately 25 years ago and repeat radiofrequency ablation at [facility] in 2012, has been maintained on low-dose propafenone for symptomatic PACs, SAF1-OC8-FKSg score of 1 for gender only, not [...] attention. She is not on anticoagulation. Her IYF6-DC2-YFHi score is currently 2, for gender and [...] for stroke - ICD9: V15.89, ICD10: Z91.89 YNN4-UZ9-IWXp score of 2 (age, gender), although lately there was some discussion about borderline diabetes, but this is not definitive 3. Anemia, unspecified type - ICD9: 285.9, ICD10: D64.9 As above Chi Zamora MD CONTACT INFORMATION: Chi Zamora MD documented in this encounterSumma Health03-17-2025 Telephone encounter Note * Telephone Encounter - Jasmyn Wood LPN - 07/10/2024 9:39 AM EDT I spoke to Bella Morillo and informed them of 's response and recommendations. Patient voiced understanding and agrees to proceed with 07/20/2024 appointment provided by clerical. Jasmyn Wood LPN [facility]03-17-2025 Miscellaneous Notes* Telephone Encounter - Jasmyn Wood [...] called in and states she went to [facility] on Wednesday for Atrial fib with [...] 08/2024. Jasmyn Wood LPN documented in this encounterSumma Health03-17-2025 Telephone encounter Note * Telephone Encounter - Margarita Rangel - 07/10/2024 9:12 AM EDT Left message with appointment date/time Margarita Rangel [facility]03-17-2025 Telephone encounter Note* Telephone Encounter - Chi Zamora MD - 07/10/2024 9:02 AM EDT Let;s schedule her for an appt with me in a week or 2 to review the options.Chi Zamora MD [place] [id number] Telephone encounter Note* Telephone Encounter - Jasmyn Wood LPN - 07/07/2024 9:49 AM EDT Bella Morillo called in and states she went to [facility] on Wednesday for Atrial fib with [...] follow up until 08/2024. Jasmyn Wood LPN [facility]02-23-2025 Note. MICRO - Microbiology PROCEDURE: Urine Culture [...] Locations *1: This test was performed at: [facility], [address] [place] [address], [id number] , [facility]01-13-2025 History of Present illness Narrative* Tesfaye Zunigana [...] significant constipation and occasional upset stomach. Taking swazi perfecto as needed. 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 [...] > 4 years ago, [facility] [place] [address] [place]. Reviewed would recommend repeat screening colonoscopy with a new DANITA diagnosis. Started on [place] by Dr Montero for knee pain. Denies [...] with any questions or concerns. Lindsey Zuniga APRN.TOE POUNDER I spent a total of 30 minutes on the date of the service which included preparing to see the patient, cuow-dv-prxw patient care, completing clinical documentation, obtaining and/or [...] evaluation of this patient. documented in this encounterSumma Health01-13-2025 NoteHNO ID: [id number] Author: LINDSEY ZUNIGA, ? Service: ? Author [...] significant constipation and occasional upset stomach. Taking swazi perfecto as needed. 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 [...] > 4 years ago, [facility] [place] [address] [place]. Reviewed would recommend repeat screening colonoscopy with a new DANITA diagnosis. Started on [place] by Dr Montero for knee pain. Denies [...] mL auto-injector Inject 0 (more content not included)...[facility]12-06-2024 Telephone encounter Note* Telephone Encounter - Jasmyn Wood LPN - 03/31/2024 7:33 AM EST Patient's request for medication is as follows: Requested Prescriptions Pending Prescriptions Disp Refills metoprolol tartrate, short acting, (LOPRESSOR) 25 mg tablet [Pharmacy Med Name: METOPROLOL [id number] MG TAB] 180 tablet 3 Sig: TAKE 1 TABLET BY MOUTH TWICE A DAY Last seen 09/13/2023.Recall scheduled for 09/12/2024. Prescription(s) as above. Please process accordingly. Jasmyn Wood LPN [facility]12-06-2024 Miscellaneous Notes* Telephone Encounter - Jasmyn Wood LPN - 03/31/2024 7:33 AM EST Patient's request for medication is as follows: Requested Prescriptions Pending Prescriptions Disp Refills metoprolol tartrate, short acting, (LOPRESSOR) 25 mg tablet [Pharmacy Med Name: METOPROLOL [id number] MG TAB] 180 tablet 3 Sig: TAKE 1 TABLET BY MOUTH TWICE A DAY Last seen 09/13/2023.Recall scheduled for 09/12/2024. Prescription(s) as above. Please process accordingly. Jasmyn Wood LPN documented in this encounterSumma Health11-11-2024 Hospital Discharge instructions Patient Education 03/06/2024 12:13:37 [...] before eating solid foods. General instructions Take miwg-wwq-psqgefh and prescription medicines only as told by [...] 08/02/2016 Document Revised: 07/11/2018 Document Reviewed: 08/02/2016 [employer] Patient Education 2020 [employer]. 03/06/2024 12:13:32 9 - AO Minor Esophagogastroduodenoscopy [...] 02/23/2024 10:28:23 With:ENRIQUE BASS MD Address: [address] [address] [phone] When: Unknown [facility] 11-11-2024 Evaluation + Plan noteExtracted from: Title:Clinical Document Author:ENRIQUE BASS Date:03/06/24 [place] ADMISSION HISTORY AN D PHYSICIAL CHIEF COMPLAINT: HISTORY OF PRESENT ILLNESS: REVIEW OF SYSTEMS: ACTIVE PROBLEMS: (44) Actinic keratosis (3806723270) Acute cystitis without hematuria (315753821) Afib (47824692) Anaphylaxis due to insect venom (8198354185) Blood in urine - hematuria (6437509282) Cataract (843596044) CKD (chronic kidney disease), stage III (0790944006) Coccyxdynia (4999872986) DDD (degenerative disc disease), lumbar (39021135) Family hx of aortic aneurysm (9824033036) Former smoker (66091327) GERD (gastroesophageal reflux disease) (102970913) Jasen's thyroiditis (75394375) Hernia, hiatal (789332211) Hx of spinal surgery (144516077) Hypercoagulable state due to atrial fibrillation (7173172129) Hyperparathyroidism (293519998) Hypochromic anemia (670427103) Hypothyroid (95308848) Immunity status testing (632785312) Immunization due (148746778) Knee osteoarthritis (421329034) Laceration of forehead (044255753) Macular degeneration (4714375228) Medicare annual wellness visit, subsequent (648458156) Need for hepatitis C screening test (817476422) Nephrolithiasis (023809884) Not currently working due to disabled status (668303598) Osteoporosis (488186020) Premature atrial complex (485480802) Preop examination (084727508) Right elbow pain (342810178) Right hand pain (064883356) Right shoulder pain (60849945) S/P ablation of atrial fibrillation (706382492) Screen for colon cancer (408665825) Screening due (213948871) Screening for AAA (abdominal aortic aneurysm) (701856310) Screening for breast cancer (766991058) Screening for cardiovascular condition (306105447) Screening for cervical cancer (2137562477) Skin tear of upper extremity (7597893466) Viral URI with cough (456242799) Vitamin D deficiency (23187130) MEDICATIONS: Active Inpt Meds: None Active PRN [...] FAMILY HISTORY: SOCIAL HISTORY: PHYSICAL EXAM: VITALS: OrhobyDvzgFZTvmocTJOvL7LEQ8YpszWo(kg) 03/06 11:1336.6--173100KR70/11 70.0 24 Hr Tmax: 36.6 at 03/06 [...] Date:03/08/2024 08:30:00 AM Scheduled Provider:SRIDHAR MONTERO DO Location:[facility] Appointment Type:PC OV Appointment Date:07/13/2024 08:30:00 AM Scheduled Provider:SRIDHAR MONTERO DO Location:[facility] Appointment Type:PC OV Future Scheduled Tests Laboratory* Urinalysis w/ C&S if Indicated 12/27/23 * Urinalysis w/ C&S if Indicated 01/26/24 * Thyroid Stimulating Hormone 01/20/24 * Free T4 01/20/24 * A1C Hemoglobin 01/20/24 * Complete Blood Count 01/20/24 * Lipid Profile 01/20/24 * Vitamin D Level 01/20/24 * Complete Metabolic Panel 01/20/24 [facility] 11-11-2024 Note Discharge Instructions Thank you for allowing [facility] to assist you with your healthcare needs. The following is importantdischarge information regarding your hospital visit. Your Care Team SRIDHAR MONTERO DO, Dr. What to do next Scheduled Follow-Up Appointments Appointment Type When With Where Contact Information StatusPC OV 03/08/2024 08:30 AM EST SRIDHAR MONTERO DO [address] [phone] Confirmed PC OV 07/13/2024 08:30 AM EDT SRIDHAR MONTERO DO [address] [phone] Confirmed Follow Up Appointments Follow Up with ENRIQUE BASS MD Where:[facility] [address] [place] [phone] Allergies Bee Stings Anaphylactic reaction Dakins Full [...] before eating solid foods. General instructions Take dsov-ori-omwewem and prescription medicines only as told by [...] 08/02/2016 Document Revised: 07/11/2018 Document Reviewed: 08/02/2016 [employer] Patient Education 2020 [employer] Esophagogastroduodenoscopy This is an endoscopic procedure [...] to receive it can visit one of [facility] vaccine clinics. There are many vaccine clinic locations within the [facility]. For locations and available times, please visit [email or web address] It is important to note that some COVID mobile vaccine clinics are held outdoors and may be canceled in rainy or stormy conditions. To learn more about pediatric vaccinations (ages 5-11), we invite you to visit the [facility] webpage. [email or web address] learn more about the COVID-19 vaccine, we invite you to visit the CDC website for a list of frequently asked questions.https://www.cdc.gov/coronavirus/2019-ncov/vaccines/faq.html [facility] Patient Portal Access Instructions: Stay connected with your healthcare team and access your personal medical information anytime with the [facility] Patient Portal. Please follow the directions below to create your [facility] account: 1.Access the email account you provided upon registration to the hospital/physician office.2.Look for an invitation email from [facility].3.Open the email and access the invitation link: AcceptInvitation to [facility].4.Fill in the required kwok to create your account. To access your account, visit [email or web address]. Click the blue button labeled Access Patient Portal and then log in with the username and password that you created in the steps above. You will be able to view your test results, lab results, a summary of your visits, upcoming appointments and more. There is also a convenient messaging option where you can send secure messages to your [facility]. In addition, you will have the ability to download any documents or summaries to your computer and/or send the information securely to a physician. Remember that your healthcare information is confidential, so carefully consider who you will allowto register on the [facility] Patient Portal for access to your information. You can also access the [facility] Patient Portal on the [facility] lilia. Simply click on Patient Portal and then log into your account. If you would like to receive a full copy of your medical records, please contact the [facility] Medical Records Department by calling [phone], Wednesday through Wednesday between 8 a.m. and [...] Call your local pharmacy or go to http://bit.ly/[email or web address] to find one close to you.3.Make use of household items: Use cat litter or old coffee grounds to dispose medications if other options arenot available. Mix your drugs with these household products, seal them in an airtight container andthrow it into the garbage. Call [facility]: [phone] to be sure your drugs can be [...] aware that I should contact my doctor. Patient/Rebar Worker Signature: Date/Time: Relationship to Patient: Witness Name/Signature: Date/Time: [facility]11-11-2024 Anesthesiology Consult note Patient: BELLA MORILLO Age: [...] by FLAKITO AWAD on 03/06/2024 12:01 PM [facility]11-11-2024 Anesthesiology Consult note Patient: BELLA MORILLO Age: [...] list: Medical Actinic keratosis / SNOMED CT 1517199324 / Confirmed Acute cystitis without hematuria / SNOMED CT 960714238 / Confirmed Anaphylaxis due to insect venom / SNOMED CT 7016114546 / Confirmed Hypochromic anemia / SNOMED CT 626460871 / Confirmed Afib / SNOMED CT 09312699 / Confirmed Premature atrial complex / SNOMED CT 732962709 / Confirmed Blood in urine - hematuria / SNOMED CT 3066553016 / Confirmed Screening for cervical cancer / SNOMED CT 6528801860 / Confirmed Cataract / SNOMED CT 559685679 / Confirmed CKD (chronic kidney disease), stage III / SNOMED CT 0146315843 / Confirmed DDD (degenerative disc disease), lumbar / SNOMED CT 60498786 / Confirmed Macular degeneration / SNOMED CT 2332408387 / Confirmed Former smoker / SNOMED CT 09837655 / Confirmed Family hx of aortic aneurysm / SNOMED CT 9544834305 / Confirmed Not currently working due to disabled status / SNOMED CT 004013051 / Confirmed GERD (gastroesophageal reflux disease) / SNOMED CT 671634040 / Confirmed Hx of spinal surgery / SNOMED CT 399146704 / Confirmed S/P ablation of atrial fibrillation / SNOMED CT 250252584 / Confirmed Right hand pain / SNOMED CT 065031707 / Confirmed Jasen's thyroiditis / SNOMED CT 16014351 / Confirmed Hernia, hiatal / SNOMED CT 688234529 / Confirmed Hypercoagulable state due to atrial fibrillation / SNOMED CT 0334669024 / Confirmed Hyperparathyroidism / SNOMED CT 601014309 / Confirmed Hypothyroid / SNOMED CT 72911187 / Confirmed Immunization due / SNOMED CT 415254071 / Confirmed Nephrolithiasis / SNOMED CT 747916827 / Confirmed Laceration of forehead / SNOMED CT 930366567 / Confirmed Knee osteoarthritis / SNOMED CT 511288438 / Confirmed Osteoporosis / SNOMED CT 237124832 / Confirmed Coccyxdynia / SNOMED CT 3173280463 / Confirmed Right elbow pain / SNOMED CT 741716336 / Confirmed Preop examination / SNOMED CT 065920043 / Confirmed Medicare annual wellness visit, subsequent / SNOMED CT 667993653 / Confirmed Screening for AAA (abdominal aortic aneurysm) / SNOMED CT 102777509 / Confirmed Screening for cardiovascular condition / SNOMED CT 863500743 / Confirmed Immunity status testing / SNOMED CT 083677748 / Confirmed Screening for breast cancer / SNOMED CT 432038050 / Confirmed Screen for colon cancer / SNOMED CT 181099660 / Confirmed Screening due / SNOMED CT 255691130 / Confirmed Right shoulder pain / SNOMED CT 48166745 / Confirmed Skin tear of upper extremity / SNOMED CT 6702161685 / Confirmed Need for hepatitis C screening test / SNOMED CT 749277808 / Confirmed Viral URI with cough / SNOMED CT 676727355 / Confirmed Vitamin D deficiency / SNOMED CT 86696489 / Confirmed Canceled: Anemia / SNOMED CT 434925687 Canceled: At low risk for fall / SNOMED CT 4343436612 Canceled: BMI 24.0-24.9, adult / SNOMED CT 1750420245 Canceled: CKD (chronic kidney disease) stage 3, GFR 30-59 ml/min / SNOMED CT 0493281387 Canceled: Cough / SNOMED CT 76619360 Canceled: Decreased GFR / SNOMED CT 3308334946 Canceled: Influenza vaccine refused / SNOMED CT 717515753 Canceled: Overweight / SNOMED CT 112710379 Canceled: BMI 25.0-25.9,adult / SNOMED CT 1861793583 Canceled: Depression screen / SNOMED CT 541772159 Canceled: Encounter for screening involving social determinants of health (SDoH) / SNOMED CT 974266802 Canceled: Encounter to establish care / SNOMED CT 070609826 Canceled: Encounter for removal of sutures / SNOMED CT 325308005, Active Problems (44) Actinic keratosis Acute cystitis [...] cancer Father Procedure history: Total knee replacement (2725714518) on 06/24/2021 at 65 Years. Comments: 12/19/2021 10:36 LUCIEN - Christy Encarnacion LPN rt Total knee replacement (8488767529). Comments: 06/06/2021 10:18 Christy Moore LPN x3 2006 and 10/2019 Ablation (155213387). Comments: 06/06/2021 10:19 Christy Moore LPN heart-x2 12/2005 and 04/2012 Knee (015452111). Comments: 06/06/2021 10:18 Christy Moore LPN torn cartilage-1975 Ganglion cyst (204337154). Comments: 06/06/2021 10:19 Christy Moore LPN rt wrist Femur (976211424). Comments: 06/06/2021 10:19 EST - Christy Encarnacion LUIS lt. shattered-01/2012 Discectomy of spine (2373238627). Social History: Social & Psychosocial Habits Alcohol [...] Signs (last 24 hrs) Last Charted Temp Yibqbhom29.6 DegC (MAR 06:) SBPH 144 mmHg (MAR 06:) DBP72 mmHg (MAR 06:) Measurements from flowsheet : Measurements 03/06/2024 11:13 EST Height 168.5 cm Admission Weight 70 kg Decker Body Weight 60.08 kg Admission Body Mass Index 24.65 m2 03/06/2024 11:07 EST Height 168.5 cm Decker Body Weight 60.08 kg Pain assessment: Pain [...] available , Lab results 03/06/2024 11:48 EST [place] History and Physical 03/06/2024 11:40 EST SN [...] Surgeon SN - CAt - Role Performed CIAIO COUNTER MOLDER SN - CAt - Role Performed Liquor Grinder Mill Operator 1 SN - CAt - Role Performed Fire Extinguisher Repairer Inspector 1 03/06/2024 11:28 EST Sodium Chloride 0.9% [...] Height 168.5 cm Admission Weight 70 kg Decker Body Weight 60.08 kg Admission Body Mass [...] Quadrants Present Skin Temperature Warm Skin Description [place] Characteristics of Speech Clear Level of Consciousness Alert Strength All Extremities Strong Affect/Behavior Appropriate, Calm, Cooperative Orientation Oriented x 4 Standard Safety ID band on, Allergy Band on, Call device within reach, Bed in low position, Wheels locked 03/06/2024 11:07 EST Designated Person #1 We May Share MELECIO Morillo [phone] Designated Person #1 Relationship Son Privacy Restrictions Requested None Height 168.5 cm Decker Body Weight 60.08 kg Status No, per [...] Teaching Method Printed materials Preferred Spoken Language Faroese Preferred Written Language Faroese Patient's Current Physicians [place] Discharge To, Anticipated [...] Intake 03/05/2024 18:15 . Assessment and Plan [place] Society of Anesthesiologists (ASA) physical status classification: Class II. Anesthetic Preoperative Plan Premedication: intravenous. Anesthetic technique: MAC. Induction: intravenously. Maintenance airway: Mask. Risks discussed: nausea, vomiting, headache, sore throat, dental injury, hypotension, allergic reaction, serious complications. Informed consent: signed by patient. Digitally Signed by FLAKITO AWAD on 03/06/2024 11:53 AM [facility]11-11-2024 Note [place] ADMISSION HISTORY AND PHYSICIAL CHIEF COMPLAINT: HISTORY OF PRESENT ILLNESS: REVIEW OF SYSTEMS: ACTIVE PROBLEMS: (44) Actinic keratosis (5921391998) Acute cystitis without hematuria (730687782) Afib (57602008) Anaphylaxis due to insect venom (2770454797) Blood in urine - hematuria (1273082881) Cataract (665756599) CKD (chronic kidney disease), stage III (9617197010) Coccyxdynia (2524922742) DDD (degenerative disc disease), lumbar (84274038) Family hx of aortic aneurysm (7167605742) Former smoker (88706550) GERD (gastroesophageal reflux disease) (921369415) Jasen's thyroiditis (75637927) Hernia, hiatal (813014794) Hx of spinal surgery (645596298) Hypercoagulable state due to atrial fibrillation (8027634490) Hyperparathyroidism (054177939) Hypochromic anemia (869651570) Hypothyroid (08021497) Immunity status testing (888635802) Immunization due (647886457) Knee osteoarthritis (531088629) Laceration of forehead (610824930) Macular degeneration (0082821165) Medicare annual wellness visit, subsequent (924896966) Need for hepatitis C screening test (013535536) Nephrolithiasis (401335334) Not currently working due to disabled status (163526955) Osteoporosis (222451003) Premature atrial complex (820016880) Preop examination (882815495) Right elbow pain (487224264) Right hand pain (746157394) Right shoulder pain (47598906) S/P ablation of atrial fibrillation (753389911) Screen for colon cancer (073463360) Screening due (742555292) Screening for AAA (abdominal aortic aneurysm) (245479944) Screening for breast cancer (965885280) Screening for cardiovascular condition (872332215) Screening for cervical cancer (8949063836) Skin tear of upper extremity (4133136507) Viral URI with cough (447650487) Vitamin D deficiency (51353763) MEDICATIONS: Active Inpt Meds: None Active PRN [...] FAMILY HISTORY: SOCIAL HISTORY: PHYSICAL EXAM: VITALS: OpmoysMwsdIVRrlvlCXGkP0OEI7ZkoqRq(kg) 03/06 11:1336.6--705722TK19/11 70.0 24 Hr Tmax: 36.6 at 03/06 [...] ENRIQUE BASS MD on 03/06/2024 11:49 AM [facility]10-30-2024 Telephone encounter Note* Telephone Encounter - Veronica Jay LISW - 02/23/2024 11:33 AM EDT SOCIAL WORK FOLLOW UP NOTE: [facility] Pt noted on [facility] time treatment report. Pt has a non-oncology regimen. No social work followup indicated. JUANJO Gotti [facility]10-30-2024 Miscellaneous Notes* Telephone Encounter - Veronica Jay LISW - 02/23/2024 11:33 AM EDT SOCIAL WORK FOLLOW UP NOTE: [facility] CENTER Pt noted on [facility] 1st time treatment report. Pt has a non-oncology regimen. No social work followup indicated. JUANJO Gotti documented in this encounterSumma Health10-30-2024 Telephone encounter Note * Telephone Encounter - Viviane Middleton LPN - 02/23/2024 7:56 AM EDT Patient's request for medication is as follows: Requested Prescriptions Pending Prescriptions Disp Refills Propafenone HCl (RYTHMOL) 225 mg tablet 270 tablet 3 Sig: TAKE 1 TABLET EVERY 8 HOURS Last seen 09/13/2023. Prescription(s) as above. Please process accordingly. Viviane Middleton LPN [facility]10-30-2024 Miscellaneous Notes* Telephone Encounter - Viviane Middleton LPN - 02/23/2024 7:56 AM EDT Patient's request for medication is as follows: Requested Prescriptions Pending Prescriptions Disp Refills Propafenone HCl (RYTHMOL) 225 mg tablet 270 tablet 3 Sig: TAKE 1 TABLET EVERY 8 HOURS Last seen 09/13/2023. Prescription(s) as above. Please process accordingly. Viviane Middleton LPN documented in this encounterSumma Health10-23-2024 Telephone encounter Note * Telephone Encounter - Janet Tai - 02/16/2024 11:05 AM EDT Patient called back and confirmed the 2 new appts are ok. Thank you [facility]10-23-2024 Miscellaneous Notes* Telephone Encounter - Janet Tai [...] Thank you Sweta Henson documented in this encounterSumma Health10-23-2024 Telephone encounter Note * Telephone Encounter - [...] 02/20 and 02/27. Thank you Sweta Henson [facility]10-18-2024 Telephone encounter Note* Telephone Encounter - Simeon Chris - 02/11/2024 1:25 PM EDT I reviewed the patient on the 1st-time treatment report. The patient does not have a cancer diagnosis or a chemo/radiation regimen. No further Financial Navigator intervention is needed at this time. [facility]10-18-2024 Miscellaneous Notes* Telephone Encounter - Simeon Chirs - 02/11/2024 1:25 PM EDT I reviewed the patient on the 1st-time treatment report. The patient does not have a cancer diagnosis or a chemo/radiation regimen. No further Financial Navigator intervention is needed at this time. documented in this encounterSumma Health10-15-2024 Telephone encounter Note * Telephone Encounter - Audrey Barth - 02/08/2024 10:40 AM EDT Spoke with patient and scheduled. Audrey Barth [facility]10-15-2024 Miscellaneous Notes* Telephone Encounter - Audrey Barth [...] last dose of IV iron. Lindsey Zuniga APRN.TOE POUNDER documented in this encounterSumma Health10-10-2024 Telephone encounter Note * Telephone Encounter - [...] last dose of IV iron. Lindsey Zuniga APRN.TOE POUNDER [facility]10-08-2024 History of Present illness Narrative* Lindsey Zuniga [...] significant constipation and occasional upset stomach. Taking swazi perfecto as needed. 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 [...] will call with follow up Lindsey Zuniga APRN.TOE POUNDER I spent a total of 60 minutes on the date of the service which included preparing to see the patient, ywsv-ac-blaz patient care, completing clinical documentation, obtaining and/or [...] evaluation of this patient. documented in this encounterSumma Health08-25-2024 Instructions* Patient Instructions* Beverley Patrick PA-C - [...] care. Beverley Patrick PA-C documented in this encounterSumma Health08-25-2024 History of Present illness Narrative* Beverley Patrick [...] No date: Anemia No date: Atrial fibrillation ([facility]) No date: Atrophic vaginitis No date: Dyspareunia in female No date: Family history of breast cancer No date: Family history of colon cancer Comment: offered [employer] MyRisk; pt needs to complete genetic counseling No date: Family history of malignant melanoma No date: Femur fracture ([facility]) Comment: trip/fall from standing height 05/2019: High risk for hip fracture Comment: FRAX Hip 3% No date: 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 No date: Knee pain No date: Macular degeneration No date: Migraine with aura 2011: Osteopenia No date: PAC (premature atrial contraction) No date: Palpitations No date: 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 documented in this encounterSumma Health05-20-2024 History of Present illness Narrative* Chi Zamora MD - 09/13/2023 1:21 PM EDT Images from the original note were not included. [facility] SECTION OF CARDIAC PACING and ELECTROPHYSIOLOGY OUTPATIENT VISIT DATE September 13, 2023 OUTPATIENT VISIT TYPE ESTABLISHED PRIMARY CARE PHYSICIAN: Sridhar Montero [address] [place] [address] HISTORY OF PRESENT ILLNESS: Prior history, edited as needed: 68 year female with history of PAF, s/p catheter ablation approximately 25 years ago and repeat radiofrequency ablation at [facility] in 2012, has been maintained on low-dose propafenone for symptomatic PACs, ROC8-JM7-TXHe score of 1 for gender only, not [...] INTERP (MED OFFICE) 2. 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 - ICD9: V58.69, ICD10: Z79.899 Tolerating well, continue current regimen 3. PAC (premature atrial contraction) - ICD9: 427.61, ICD10: I49.1 Effectively suppressed with class Ic agent Chi Zamora MD CONTACT INFORMATION: Chi Zamora MD documented in this encounterSumma Health03-18-2024 Miscellaneous Notes* Telephone Encounter - Viviane Middleton [...] scheduled. Lilia Martinez APRN.POOJA documented in this encounterSumma Health02-21-2024 Miscellaneous Notes* Telephone Encounter - Keli House [...] AM EST ----- Message from Lilia Martinez APRN.TOE POUNDER sent at 06/15/2023 7:16 AM EST ----- Notify patient that results look good, her potassium was 5.1. Continue with current plan of care. Thank you. Lilia Martinez APRN.TOE POUNDER documented in this encounterSumma Health02-19-2024 Miscellaneous Notes* Telephone Encounter - Viviane Middleton LPN - 06/14/2023 3:17 PM EST Spoke with patient about test results and recommendation to continue current plan of care. Patient verbalizes understanding and is agreeable. Viviane Middleton LPN * Telephone Encounter - Viviane Middleton LPN - 06/14/2023 3:16 PM EST ----- Message from Lilia Martinez APRN.TOE POUNDER sent at 06/14/2023 3:13 PM EST ----- Notify patient that results of echocardiogram look good, LVEF 60%, no wall motion abnormalities, normal biatrial size, no significant valvular abnormalities. Continue with current plan of care. Thankyou. Lilia Martinez APRN.TOE POUNDER documented in this encounterSumma Health02-19-2024 Miscellaneous Notes* Patient Education - Cecilia Perez RN - 06/14/2023 2:00 PM EST Patient educated on 14 day patch monitor, and verbalizes understanding. documented in this encounterSumma Health02-19-2024 Miscellaneous Notes* Result Encounter Note - Lilia Martinez APRN.CNP - 06/14/2023 1:00 PM EST Notify patient that results of echocardiogram look good, LVEF 60%, no wall motion abnormalities, normal biatrial size, no significant valvular abnormalities. Continue with current plan of care. Thankyou. Lilia Martinez APRN.TOE POUNDER * Addendum Note - Elena Oropeza - 06/14/2023 1:00 PM ESTEncounter addended by: Elena Oropeza on: 06/14/2023 2:12 PM Actions taken: Pharmacy for encounter modified documented in this encounterSumma Health02-14-2024 Miscellaneous Notes* Letter - Coordinator, Mammography - 06/09/2023 12:31 PM EST [address] [address] June 09, 2023 PID: [id number] Bella LucianoJames Morillo [address] [place] [address] Dear Ms. Morillo, We are pleased to [...] report will be [facility] as part of your permanent medical record and are available for your continuing care. Thank you for allowing us to help in meeting your health care needs. Sincerely, Dr. Angel Interpreting Radiologist [facility] (Normal over 40) documented in this encounterSumma Health02-13-2024 History of Present illness Narrative* Namrata Young [...] PATIENT PRESENTS WITH AN IMPLANTABLE OR ATTACHED BUSINESS SERVICES TECH: No RADIOLOGY DEPARTMENT: Mammography PERIPHERAL IV DATA: Not applicable SIGNED BY: RT Juju(R) June 08, 2023 10:47 AM documented in this encounterSumma Health02-02-2024 Instructions* Patient Instructions* Lilia Martinez APRN.TOE POUNDER - 05/28/2023 1:48 PM EST Atrial Fibrillation [...] healthcare provider's instructions for treatment. Copyright 2014 [employer] and/or one of its subsidiaries. All rights reserved. documented in this encounterSumma Health02-02-2024 History of Present illness Narrative* Lilia Martinez APRN.CNP - 05/28/2023 1:30 PM EST Images from the original note were not included. [facility] General Cardiology Electrophysiology PRIMARY CARE PHYSICIAN: Sridhar Montero IV [address] [place] [address] [place] [address] CHIEF COMPLAINT: Cardiovascular medicine follow-up for arrhythmia. HISTORY OF PRESENT ILLNESS: Ms. Morillo is a 67 year old female who presents today for follow-up regarding arrhythmia. The patient has a history of highly symptomatic paroxysmal atrial fibrillation, s/p catheter ablation approximately 20 years ago and repeat radiofrequency catheter ablation at [facility] in 2012, has been maintained on low- dose propafenone for symptomatic PACs. She has not anticoagulated as her SKC9JD7-EZCz scoreis 1 for female gender however she turned 67 and her ZUP5UK0- VASc score is now a 2. She [...] Electrocardiogram: 05/28/2023 -normal sinus rhythm, 61 bpm, MN 162 ms,QRS 100 ms, QT/QTc 410/412 ms. [...] patient verbalizes understanding. 4. 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 - ICD9: V58.69, ICD10: Z79.899 - propafenone; indication: Symptomatic PACs, EKG today demonstrates normal sinus rhythm, 61 bpm, MN 162 ms, QRS 100 ms, QT/QTc 410/412 ms, appropriate to continue propafenone. 5. At risk for stroke - ICD9: V15.89, ICD10: Z91.89 -history of atrial fibrillation, she has a UDY0CX5-PVHa score of 2 for age and female [...] 08/26/2023) for Dr. Zamora or DEBBIE. Lilia aMrtinez APRN.CNP Medical Decision Making: Problems: Moderate: 1+ [...] to correct any errors. documented in this encounterSumma Health02-02-2024 Nurse Note* Shyann Shrestha MA - 05/28/2023 1:21 PM EST Pt denies cardiac concerns today Pt does report frequent AFIB episodes documented in this encounterSumma Health12-14-2023 Miscellaneous Notes* Telephone Encounter - Jasmyn Wood LPN - 04/08/2023 7:35 AM EST Patient's request for medication is as follows: Requested Prescriptions Pending Prescriptions Disp Refills metoprolol tartrate, short acting, (LOPRESSOR) 25 mg tablet [Pharmacy Med Name: METOPROLOL [id number] MG TAB] 180 tablet 3 Sig: take 1 tablet by mouth twice a day Last seen 05/28/2022. Follow up scheduled for 05/28/2023. Prescription(s) as above. Please process accordingly. Jasmyn Wood LPN documented in this encounterSumma Health11-05-2023 Note. MICRO - Microbiology PROCEDURE: Urine Culture [...] Locations *1: This test was performed at: [facility], [address] [place] [address], [facility] , [facility] ([place])10-12-2022 History of Present illness Narrative* Gaye Rowell [...] No history of dysuria, frequency or incontinence SHREDDING SPECIALIST: Negative for abnormal vaginal bleeding, abnormal vaginal [...] At high risk for fracture - ICD9: HWD2030, ICD10: Z91.89 9. Uterine leiomyoma, unspecified location - ICD9: 218.9, ICD10: D25.9 Gaye Rowell PA-C Return in about 1 year (around 10/13/2023) for Annual Exam. documented in this encounterSumma Health03-16-2023 History of Present illness Narrative* Jaciel Hurd [...] which included preparing to see the patient, nicx-be-cfbc patient care, completing clinical documentation, obtaining and/or reviewing separately obtained history, performing a medically appropriate examination, counseling and educating the patient/family/caregiver, ordering medications, tests, or procedures, communicating withother HCPs (not separately reported), independently interpreting results (not separately reported),communicating results to the patient/family/caregiver, and care coordination (not separately reported). . Jaciel Hurd MD Orthopaedic Surgery documented in this encounterSumma Health03-16-2023 History of Present illness Narrative* Minerva Carroll [...] 09, 2022 2:31 PM documented in this encounterSumma Health02-15-2023 Miscellaneous Notes* Telephone Encounter - Paola Metcalf - 06/10/2022 1:24 PM EST Also added patient to wait list as she is requesting to be seen before 07/07/22. * Telephone Encounter - Paola Metcalf - 06/10/2022 1:21 PM EST Called and informed Twyla (Dr. Bradshaw's office) and informed them Dr. Hurd will see Bella. Then called Blela and scheduled her with Dr. Hurd * Telephone Encounter - Jose Gutierrez APRN.CNP - 06/10/2022 12:09 PM EST Okay to schedule appointment with Dr. Hurd. We can see for left knee revision evaluation. Jose Gutierrez APRN.CNP June 10, 2022 12:09 PM * Telephone Encounter - Paola eMtcalf - 06/10/2022 9:31 AM EST Patient was on wait list for the following: Left Knee Referred to Dr. Hurd by Dr. Gabrielle Bradshaw discuss possible surgical options, Dr. Hurd did not subgroup for F Contact for scheduling, Dr. Bradshaw's office, any senior front end developer can assist [phone] Option 1 06/10- I called Dr. Bradshaw's office to schedule, and front office director stated Dr. Hurd wanted to reviewlast office not to decide if he would see patient or not.. I did not see any notes on this.. please advise if we are still waiting to schedule patient or not. Twyla (front office director staff) faxed the office note on 06/10/22 PSS please call Twyla and advise / schedule with her [phone] option 1 Thanks! documented in this encounterSumma Health02-02-2023 History of Present illness Narrative* Chi Zamora MD - 05/28/2022 10:19 AM EST Images from the original note were not included. Heart and Vascular [place] [facility] SECTION OF CARDIAC PACING and ELECTROPHYSIOLOGY OUTPATIENT VISIT DATE May 28, 2022 OUTPATIENT VISIT TYPE ESTABLISHED PRIMARY CARE PHYSICIAN: Sridhar Montero [address] [place] [address] HISTORY OF PRESENT ILLNESS: Prior history, edited as needed: 66 approximately 20 years ago and repeat radiofrequency ablation at [facility] in 2012, has been maintained on low-dose propafenone for symptomatic PACs, QIG1-FR0-BVOa score of 1 for gender only, not [...] PAC suppression. As in the past, her CLY0-QX2-RRXg score is 1 forgender only, although her [...] on anticoagulation, on propafenone for supraventricular ectopy. MBD7-FB5-WWRy score of 1 for gender only - ECG B/O W INTERP (MED OFFICE) 2. PAC (premature atrial contraction) - ICD9: 427.61, ICD10: I49.1 - Symptomatically maintained on propafenone long-term with successful suppression. Chi Zamora MD Office follow-up in 1 year. CONTACT INFORMATION: Chi Zamora MD documented in this encounterWilliam [place]ille [address]-02-2023 Nurse Note* Viviane Middleton LPN - 05/28/2022 9:45 AM EST Patient denies any cardiac complaints or symptoms. Viviane Middleton LPN documented in this encounterSumma Health01-23-2023 Miscellaneous Notes* Telephone Encounter - Jasmny Wood LPN - 05/18/2022 7:16 AM EST Patient's request for medication is as follows: Requested Prescriptions Pending Prescriptions Disp Refills metoprolol tartrate, short acting, (LOPRESSOR) 25 mg tablet [Pharmacy Med Name: METOPROLOL [id number] MG TAB] 180 tablet 3 Sig: TAKE 1 TABLET BY MOUTH TWICE A DAY Last seen 05/26/2021. Follow up scheduled for 05/28/2022. Prescription(s) as above. Please process accordingly. Jasmyn Wood LPN documented in this encounterSumma Health12-11-2022 Miscellaneous Notes* Letter - Mammography Coordinator - 04/05/2022 7:19 AM EST [address] [address] April 05, 2022 PID: [id number] Bella Morillo [address] [place] [address] Dear Ms. Morillo, We are pleased to [...] report will be [facility] at [facility] as part of your permanent medical record and are available for your continuing care. Thank you for allowing us to help in meeting your health care needs. Sincerely, Dr. Angel Interpreting Radiologist [facility] (Normal over 40) documented in this encounterSumma Health12-09-2022 History of Present illness Narrative* RT Kimber(R) [...] 03, 2022 10:07 AM documented in this encounterSumma Health2022 Hospital Discharge instructions Patient Education 11/20/2021 13:26:36 [...] vision Extreme drowsiness, confusion, dizziness, or fainting 5944-7835 [employer]. [address] [place] [address], [place] [address]. All rights reserved. This information is not intended as a substitute for professional medical care. Always follow yourhealthcare professional's instructions. Follow Up Care 11/20/2021 10:17:19 With:Your faculty i on call medical assistant at the [facility] Address:Unknown When:2-4 days Comments:Schedule appointment for close follow-up.Continue routine home medications.Return to the ED if symptoms recur or worsen. [facility] Corinne Balderrama 2022 Note Discharge Instructions Thank you for allowing [facility] to assist you with your healthcare needs. The following is importantdischarge information regarding your hospital visit. Diagnosis from Today's Visit Atrial fibrillation with rapid ventricular response Palpitations What to Do Next Instructions from Your Care Team No qualifying data available. Post Acute Orders No qualifying data available. You Need to Schedule the Following Appointments Follow Up with Your faculty i on call medical assistant at the [facility] When Within 2-4 days Why: Schedule appointment [...] vision Extreme drowsiness, confusion, dizziness, or fainting [id number] [employer]. [address] [place] [address]. All rights reserved. This information is not intended as a substitute for professional medical care. Always follow yourhealthcare professional's instructions. Additional Information VACCINATE! IT SAVES LIVES! Members of the community who have not yet received the COVID-19 vaccine and would like to receive it can visit one of [facility] vaccine clinics. There are many vaccine clinic locations within the [facility]. For locations and available times, please visit [email or web address]. It is important to note that some COVID mobile vaccine clinics are held outdoors and may be canceled in rainy orstormy conditions. To learn more about pediatric vaccinations (ages 5-11), we invite you to visit the [facility] webpage. https://www.[email or web address]/pages/8288-Umduj-Ccoygjjxjzw-Krynfodkwg-Iffnm-Igk stions.htmlTo learn more about the COVID-19 vaccine, we invite you to visit the [facility] website for a list of frequently asked questions. [email or web address] _Asked-Questions.pdf [facility] Patient Portal Access Instructions: Stay connected with your healthcare team and access your personal medical information anytime with the [facility] Patient Portal. If you would like a full copy of your medical records please contact the [facility] Medical Records Department Wednesday through Wednesday between 8a.m. and 4:30p.m. Please follow the directions below to access the portal: 1.Access the email account you provided upon registration to the [facility].2.Look for an invitation email from [facility].3.Open the email and access the invitation link: Accept Invitation to [facility]4.Fill in the required kwok to create your account. Sign into [email or web address] with your username and password that you [...] you will allow to register on the [facility] Patient Portal for access to your information. You can also access the [facility] Patient Portal on the [facility] lilia. Simply click on Health Records under [...] Call your local pharmacy or go to http://bit.ly/5Z7Be5b to find one close to you.3.Make use of household items: Use cat litter or old coffee grounds to dispose medications if other options arenot available. Mix your drugs with these household products, seal them in an airtight container andthrow it into the garbage. Call [facility]: [phone] to be sure your drugs can be [...] aware that I should contact my doctor. Patient/Rebar Worker Signature: Date/Time: Relationship to Patient: Witness Name/Signature: Date/Time: [facility]2022 Note ORIGINAL EXAMINATION: ONE XRAY VIEW OF [...] Sign Date: 11/20/2021 11:06:07 AM Ordering Provider: [address]28-2022 Note ORIGINAL EXAMINATION: ONE XRAY VIEW [...] Sign Date: 11/20/2021 11:06:07 AM Ordering Provider: [address]28-2022 Hospital Discharge instructions Patient Education 11/19/2021 [...] signal moves through the ventricles, theventricles squeeze. 9652-1498 [employer]. [address] [place] [address]. All rights reserved. This information is not [...] help. Tell your doctor about any prescription, mown-mfw-tewcxkg, or herbal medicines you take. These may be affecting your heart rhythm. Follow-up care Follow up with your healthcare provider, or as advised. If a Holter monitor has been recommended, contact the faculty i on call medical assistant you have been referred to as soon as you can seed cone picker the device. Other outpatient tests may also [...] getting help while trying to find them. 3503-4937 [employer]. [address] [place] [address]. All rights reserved. This information is not intended as a substitute for professional medical care. Always follow yourhealthcare professional's instructions. Follow Up Care 11/19/2021 19:50:40 With:your faculty i on call medical assistant Address: When:1-2 days [facility] 07-27-2022 Note Discharge Instructions Thank you for allowing [facility] to assist you with your healthcare needs. The following is importantdischarge information regarding your hospital visit. Diagnosis from Today's Visit Palpitations Tachycardia Increased heart rate What to Do Next Instructions from Your Care Team Please call your faculty i on call medical assistant tomorrow for further management. On one of your EKGs it did appear like you may have a heart block, type II, however it was not sustained and only for a few beats. Please discuss this with your faculty i on call medical assistant as it can be a precursor to a more serious condition. Return to the emergency [place] for chest pain, shortness of breath, lightheadedness, headache, numbness, tingling, weakness, faint or anything concerning to you No qualifying data available. Post Acute Orders No qualifying data available. You Need to Schedule the Following Appointments Follow Up with your faculty i on call medical assistant When Within 1-2 days Where: Allergies Bee [...] signal moves through the ventricles, theventricles squeeze. 3872-0490 [employer]. [address] [place], [place] [address]. All rights reserved. This information is not [...] help. Tell your doctor about any prescription, dwvb-nhb-jidceme, or herbal medicines you take. These may be affecting your heart rhythm. Follow-up care Follow up with your healthcare provider, or as advised. If a Holter monitor has been recommended, contact the faculty i on call medical assistant you have been referred to as soon as you can seed cone picker the device. Other outpatient tests may also [...] getting help while trying to find them. 5516-1153 [employer]. [address] [place] [address]. All rights reserved. This information is not intended as a substitute for professional medical care. Always follow yourhealthcare professional's instructions. Additional Information VACCINATE! IT SAVES LIVES! Members of the community who have not yet received the COVID-19 vaccine and would like to receive it can visit one of [facility] vaccine clinics. There are many vaccine clinic locations within the [facility]. For locations and available times, please visit [email or web address]. It is important to note that some COVID mobile vaccine clinics are held outdoors and may be canceled in rainy orstormy conditions. To learn more about pediatric vaccinations (ages 5-11), we invite you to visit the [facility] webpage. https://www.[facility].org/pages/9456-Dajjk-Kdbmrrrwpjz-Ozuyhahnua-Nvwcd-Bsg stions.htmlTo learn more about the COVID-19 vaccine, we invite you to visit the [facility] website for a list of frequently asked questions. [email or web address]/Uzmqudck-aml-Vrrpkvhr/iacdd-Baodkqp-Henhkrsswj _Asked-Questions.pdf [facility] Patient Portal Access Instructions: Stay connected with your healthcare team and access your personal medical information anytime with the [facility] Patient Portal. If you would like a full copy of your medical records please contact the [facility] Medical Records Department Wednesday through Wednesday between 8a.m. and 4:30p.m. Please follow the directions below to access the portal: 1.Access the email account you provided upon [facility].2.Look for an invitation email from [facility].3.Open the email and access the invitation link: Accept Invitation to [facility]4.Fill in the required kwok to create your account. Sign into www.[employer] with your username and password that you [...] you will allow to register on the [facility] Patient Portal for access to your information. You can also access the [facility] Patient Portal on the [facility] lilia. Simply click on Health Records under SlickLogin and then click on the ZipList logo. HOW TO SAFELY DISPOSE OF PRESCRIPTION [...] Call your local pharmacy or go to http://Etreasurebox/2I0Wr1m to find one close to you.3.Make use of household items: Use cat litter or old coffee grounds to dispose medications if other options arenot available. Mix your drugs with these household products, seal them in an airtight container andthrow it into the garbage. Call [facility]: [phone] to be sure your drugs can be [...] aware that I should contact my doctor. Patient/Rebar Worker Signature: Date/Time: Relationship to Patient: Witness Name/Signature: Date/Time: [facility]07-27-2022 Note ORIGINAL EXAMINATION: ONE XRAY VIEW OF [...] Date: 11/19/2021 10:06:39 PM Ordering Provider: JANEEN CARLISLE [facility]07-27-2022 Note ORIGINAL EXAMINATION: ONE XRAY VIEW OF [...] Date: 11/19/2021 10:06:39 PM Ordering Provider[facility] History of Present illness Narrative* Gaye Rowell [...] is postmenopausal. Had a colonoscopy done in [place] in 2020. Confirms vaginal dryness mainly with [...] No history of dysuria, frequency or incontinence SHREDDING SPECIALIST: Negative for abnormal vaginal bleeding, abnormal vaginal [...] 10/08/2022) for Annual Exam. documented in this encounterSumma Health03-31-2022 Miscellaneous Notes* Telephone Encounter - Paola Key (Pss) - 07/24/2021 9:11 AM EDT Patient established with another provider closer to home, since Dr Romo moved to [place] Please advise, declined future appointments July 24, [...] physician. Sridhar Romo MD documented in this encounterSumma Health03-29-2022 Miscellaneous Notes* Telephone Encounter - Laron Lares MA - 07/22/2021 9:12 AM EDT MICHEL 05/02/2020 NOV None at this time Pharmacy electronically requesting refills as follows: Pending Prescriptions Disp Refills LIOTHYRONINE 5 MCG TABLET 180 tablet 3 Sig: Take 1 tablet by mouth once daily. PANCHO: No Please review and advise. Laron Lares MA documented in this encounterSumma Health03-29-2022 Miscellaneous Notes* Telephone Encounter - Jasmyn Wood LPN - 07/22/2021 7:35 AM EDT Patient's request for medication is as follows: Pending Prescriptions Disp Refills METOPROLOL TARTRATE 25 MG TABLET 180 tablet 3 Sig: TAKE 1 TABLET BY MOUTH TWICE A DAY PANCHO: Yes Last seen 05/26/2021. Follow up scheduled for 06/08/2022. Prescription(s) as above. Please process accordingly. Jasmyn Wood LPN documented in this encounterSumma Health03-29-2022 Miscellaneous Notes* Telephone Encounter - Lilia Martinez [...] Prescription(s) as above. Please process accordingly. 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 Her original knee surgery was in 1974. She is had over 10 surgeries on the left knee including 3 total knee replacements. Her last surgery was about a year ago. She has an allergy to nickel. Her surgery was performed at [facility] in [place]. Her last surgery she had extensor mechanism [...] not corrected for typographical or grammatical errors.. RN-Ubpmluftjyjn-Bqkiea 210 Work Phone: 1(709) 634-300906-19-2018 History of Past illness Narrative* Problem Noted Date Resolved Date Hypertension 10/12/2017 08/09/2018 Follow-up examination, following other surgery 0 07/16/2008 10/04/2015 Unspecified hypothyroidism 10/02/200210/03 Essential hypertension, benign 0 08/09/2018 documented as of this encounter (statuses as of 07/22/2021) [address]19-2018 History of Past illness Narrative* Problem Noted Date Resolved Date Hypertension 10/12/2017 08/09/2018 Follow-up examination, following other surgery 0 07/16/2008 10/04/2015 Unspecified hypothyroidism 10/02/200210/03 Essential hypertension, benign 0 08/09/2018 documented as of this encounter (statuses as of 07/22/2021) [address]19-2018 History of Past illness Narrative* Problem Noted Date Resolved Date Hypertension 10/12/2017 08/09/2018 Follow-up examination, following other surgery 0 07/16/2008 10/04/2015 Unspecified hypothyroidism 10/02/200210/03 Essential hypertension, benign 0 08/09/2018 documented as of this encounter (statuses as of 07/22/2021) [address]19-2018 History of Past illness Narrative* Problem Noted Date Resolved Date Hypertension 10/12/2017 08/09/2018 Follow-up examination, following other surgery 0 07/16/2008 10/04/2015 Unspecified hypothyroidism 10/02/200210/03 Essential hypertension, benign 0 08/09/2018 documented as of this encounter (statuses as of 08/28/2021) [address]19-2018 History of Past illness Narrative* Problem Noted Date Resolved Date Hypertension 10/12/2017 08/09/2018 Follow-up examination, following other surgery 0 07/16/2008 10/04/2015 Unspecified hypothyroidism 10/02/200210/03 Essential hypertension, benign 0 08/09/2018 documented as of this encounter (statuses as of 10/08/2021) [address]19-2018 History of Past illness Narrative* Problem Noted Date Resolved Date Hypertension 10/12/2017 08/09/2018 Follow-up examination, following other surgery 0 07/16/2008 10/04/2015 Unspecified hypothyroidism 10/02/200210/03 Essential hypertension, benign 0 08/09/2018 documented as of this encounter (statuses as of 04/04/2022) [address]19-2018 History of Past illness Narrative* Problem Noted Date Resolved Date Hypertension 10/12/2017 08/09/2018 Follow-up examination, following other surgery 0 07/16/2008 10/04/2015 Unspecified hypothyroidism 10/02/200210/03 Essential hypertension, benign 0 08/09/2018 documented as of this encounter (statuses as of 04/07/2022) [address]19-2018 History of Past illness Narrative* Problem Noted Date Resolved Date Hypertension 10/12/2017 08/09/2018 Follow-up examination, following other surgery 0 07/16/2008 10/04/2015 Unspecified hypothyroidism 10/02/200210/03 Essential hypertension, benign 0 08/09/2018 documented as of this encounter (statuses as of 05/18/2022) [address]19-2018 History of Past illness Narrative* Problem Noted Date Resolved Date Hypertension 10/12/2017 08/09/2018 Follow-up examination, following other surgery 0 07/16/2008 10/04/2015 Unspecified hypothyroidism 10/02/200210/03 Essential hypertension, benign 0 08/09/2018 documented as of this encounter (statuses as of 05/28/2022) [address]19-2018 History of Past illness Narrative* Problem Noted Date Resolved Date Hypertension 10/12/2017 08/09/2018 Follow-up examination, following other surgery 0 07/16/2008 10/04/2015 Unspecified hypothyroidism 10/02/200210/03 Essential hypertension, benign 0 08/09/2018 documented as of this encounter (statuses as of 06/10/2022) [address]19-2018 History of Past illness Narrative* Problem Noted Date Resolved Date Hypertension 10/12/2017 08/09/2018 Follow-up examination, following other surgery 0 07/16/2008 10/04/2015 Unspecified hypothyroidism 10/02/200210/03 Essential hypertension, benign 0 08/09/2018 documented as of this encounter (statuses as of 06/18/2022) [address]19-2018 History of Past illness Narrative* Problem Noted Date Resolved Date Hypertension 10/12/2017 08/09/2018 Follow-up examination, following other surgery 0 07/16/2008 10/04/2015 Unspecified hypothyroidism 10/02/200210/03 Essential hypertension, benign 0 08/09/2018 documented as of this encounter (statuses as of 07/20/2022) [place] [address]19-2018 History of Past illness Narrative* Problem Noted Date Resolved Date Hypertension 10/12/2017 08/09/2018 Follow-up examination, following other surgery 0 07/16/2008 10/04/2015 Unspecified hypothyroidism 10/02/200210/03 Essential hypertension, benign 0 08/09/2018 documented as of this encounter (statuses as of 07/21/2022) [address]19-2018 History of Past illness Narrative* Problem Noted Date Resolved Date Hypertension 10/12/2017 08/09/2018 Follow-up examination, following other surgery 0 07/16/2008 10/04/2015 Unspecified hypothyroidism 10/02/200210/03 Essential hypertension, benign 0 08/09/2018 documented as of this encounter (statuses as of 10/12/2022) [address]19-2018 History of Past illness Narrative* Problem Noted Date Diagnosed Date Resolved Date Hypertension 10/12/2017 08/09/2018 Follow-up examination, chika armas other surgery 07/16/2008 10/04/2015 Unspecified hypothyroidism 10/02/2002 0 10/04/2015 Essential hypertension, benign 08/09/2018 documented as of this encounter (statuses as of 04/08/2023) [address]19-2018 History of Past illness Narrative* Problem Noted Date Diagnosed Date Resolved Date Hypertension 10/12/2017 08/09/2018 Follow-up examination, chika armas other surgery 07/16/2008 10/04/2015 Unspecified hypothyroidism 10/02/2002 0 10/04/2015 Essential hypertension, benign 08/09/2018 documented as of this encounter (statuses as of 05/28/2023) [address]19-2018 History of Past illness Narrative* Problem Noted Date Diagnosed Date Resolved Date Hypertension 10/12/2017 08/09/2018 Follow-up examination, chika armas other surgery 07/16/2008 10/04/2015 Unspecified hypothyroidism 10/02/2002 0 10/04/2015 Essential hypertension, benign 08/09/2018 documented as of this encounter (statuses as of 06/09/2023) [address]19-2018 History of Past illness Narrative* Problem Noted Date Diagnosed Date Resolved Date Hypertension 10/12/2017 08/09/2018 Follow-up examination, follo wing other surgery 07/16/2008 10/04/2015 Unspecified hypothyroidism 10/02/2002 0 10/04/2015 Essential hypertension, benign 08/09/2018 documented as of this encounter (statuses as of 06/11/2023) [address]19-2018 History of Past illness Narrative* Problem Noted Date Diagnosed Date Resolved Date Hypertension 10/12/2017 08/09/2018 Follow-up examination, chika armas other surgery 07/16/2008 10/04/2015 Unspecified hypothyroidism 10/02/2002 0 10/04/2015 Essential hypertension, benign 08/09/2018 documented as of this encounter (statuses as of 06/14/2023) [facility] History of Past illness Narrative* Problem Noted Date Diagnosed Date Resolved Date Hypertension 10/12/2017 08/09/2018 Follow-up examination, chika arams other surgery 07/16/2008 10/04/2015 Unspecified hypothyroidism 10/02/2002 0 10/04/2015 Essential hypertension, benign 08/09/2018 documented as of this encounter (statuses as of 06/15/2023) [address]19-2018 History of Past illness Narrative* Problem Noted Date Diagnosed Date Resolved Date Hypertension 10/12/2017 08/09/2018 Follow-up examination, chika armas other surgery 07/16/2008 10/04/2015 Unspecified hypothyroidism 10/02/2002 0 10/04/2015 Essential hypertension, benign 08/09/2018 documented as of this encounter (statuses as of 06/15/2023) [facility] History of Past illness Narrative* Problem Noted Date Diagnosed Date Resolved Date Hypertension 10/12/2017 08/09/2018 Follow-up examination, chika armas other surgery 07/16/2008 10/04/2015 Unspecified hypothyroidism 10/02/2002 0 10/04/2015 Essential hypertension, benign 08/09/2018 documented as of this encounter (statuses as of 06/16/2023) [facility] History of Past illness Narrative* Problem Noted Date Diagnosed Date Resolved Date Hypertension 10/12/2017 08/09/2018 Follow-up examination, chika armas other surgery 07/16/2008 10/04/2015 Unspecified hypothyroidism 10/02/2002 0 10/04/2015 Essential hypertension, benign 08/09/2018 documented as of this encounter (statuses as of 07/12/2023) [facility] FLAKITO AWAD: PERFORM, SIGN, VERIFY [...] list: Medical Actinic keratosis / SNOMED CT 2974810008 / Confirmed Acute cystitis without hematuria / SNOMED CT 288503467 / Confirmed Anaphylaxis due to insect venom / SNOMED CT 7533111915 / Confirmed Hypochromic anemia / SNOMED CT 131190669 / Confirmed Afib / SNOMED CT 25575482 / Confirmed Premature atrial complex / SNOMED CT 220788911 / Confirmed Blood in urine - hematuria / SNOMED CT 7606693099 / Confirmed Screening for cervical cancer / SNOMED CT 3056918513 / Confirmed Cataract / SNOMED CT 349239180 / Confirmed CKD (chronic kidney disease), stage III / SNOMED CT 5703355997 / Confirmed DDD (degenerative disc disease), lumbar / SNOMED CT 69303250 / Confirmed Macular degeneration / SNOMED CT 3232511110 / Confirmed Former smoker / SNOMED CT 26875142 / Confirmed Family hx of aortic aneurysm / SNOMED CT 5037464698 / Confirmed Not currently working due to disabled status / SNOMED CT 602278464 / Confirmed GERD (gastroesophageal reflux disease) / SNOMED CT 031390240 / Confirmed Hx of spinal surgery / SNOMED CT 929806150 / Confirmed S/P ablation of atrial fibrillation / SNOMED CT 506700645 / Confirmed Right hand pain / SNOMED CT 511101942 / Confirmed Jasen's thyroiditis / SNOMED CT 82269632 / Confirmed Hernia, hiatal / SNOMED CT 133331919 / Confirmed Hypercoagulable state due to atrial fibrillation / SNOMED CT 2839144743 / Confirmed Hyperparathyroidism / SNOMED CT 033003191 / Confirmed Hypothyroid / SNOMED CT 58642827 / Confirmed Immunization due / SNOMED CT 413876558 / Confirmed Nephrolithiasis / SNOMED CT 006651930 / Confirmed Laceration of forehead / SNOMED CT 844814905 / Confirmed Knee osteoarthritis / SNOMED CT 569149868 / Confirmed Osteoporosis / SNOMED CT 722316098 / Confirmed Coccyxdynia / SNOMED CT 2033438001 / Confirmed Right elbow pain / SNOMED CT 104134570 / Confirmed Preop examination / SNOMED CT 787146419 / Confirmed Medicare annual wellness visit, subsequent / SNOMED CT 524766180 / Confirmed Screening for AAA (abdominal aortic aneurysm) / SNOMED CT 392873799 / Confirmed Screening for cardiovascular condition / SNOMED CT 536247351 / Confirmed Immunity status testing / SNOMED CT 415006807 / Confirmed Screening for breast cancer / SNOMED CT 016398850 / Confirmed Screen for colon cancer / SNOMED CT 636852457 / Confirmed Screening due / SNOMED CT 931960819 / Confirmed Right shoulder pain / SNOMED CT 01637421 / Confirmed Skin tear of upper extremity / SNOMED CT 9422247439 / Confirmed Need for hepatitis C screening test / SNOMED CT 201351076 / Confirmed Viral URI with cough / SNOMED CT 329992194 / Confirmed Vitamin D deficiency / SNOMED CT 43145072 / Confirmed Canceled: Anemia / SNOMED CT 102674410 Canceled: At low risk for fall / SNOMED CT 9121942962 Canceled: BMI 24.0-24.9, adult / SNOMED CT 0997853177 Canceled: CKD (chronic kidney disease) stage 3, GFR 30-59 ml/min / SNOMED CT 4332068245 Canceled: Cough / SNOMED CT 83545440 Canceled: Decreased GFR / SNOMED CT 3124927436 Canceled: Influenza vaccine refused / SNOMED CT 724564679 Canceled: Overweight / SNOMED CT 956083654 Canceled: BMI 25.0-25.9,adult / SNOMED CT 1429402261 Canceled: Depression screen / SNOMED CT 464595231 Canceled: Encounter for screening involving social determinants of health (SDoH) / SNOMED CT 496770957 Canceled: Encounter to establish care / SNOMED CT 628368471 Canceled: Encounter for removal of sutures / SNOMED CT 983063053, Active Problems (44) Actinic keratosis Acute cystitis [...] cancer Father Procedure history: Total knee replacement ([id number]) on 06/24/2021 at 65 Years. Comments: 12/19/2021 10:36 EDT - Christy Encarnacion LPN rt Total knee replacement ([id number]). Comments: 06/06/2021 10:18 Christy Moore LPN x3 2006 and 10/2019 Ablation ([id number]). Comments: 06/06/2021 10:19 Christy Moore LPN heart-x2 12/2005 and 04/2012 Knee ([id number]). Comments: 06/06/2021 10:18 Chirsty Moore LPN torn cartilage-1975 Ganglion cyst ([id number]). Comments: 06/06/2021 10:19 Christy Moore LPN rt wrist Femur ([id number]). Comments: 06/06/2021 10:19 EST - Christy Encarnacion LPN lt. shattered-01/2012 Discectomy of spine ([id number]). Social History: Social & Psychosocial Habits Alcohol [...] Signs (last 24 hrs) Last Charted Temp Uztaicfs38.6 DegC (MAR 06:) SBPH 144 mmHg (MAR 06:) DBP72 mmHg (MAR 06:) Measurements from flowsheet : Measurements 03/06/2024 11:13 EST Height 168.5 cm Admission Weight 70 kg Decker Body Weight 60.08 kg Admission Body Mass Index 24.65 m2 03/06/2024 11:07 EST Height 168.5 cm Decker Body Weight 60.08 kg Pain assessment: Pain [...] available , Lab results 03/06/2024 11:48 EST [place] History and Physical 03/06/2024 11:40 EST SN [...] Surgeon SN - CAt - Role Performed CIAIO COUNTER MOLDER SN - CAt - Role Performed Liquor Grinder Mill Operator 1 SN - CAt - Role Performed Fire Extinguisher Repairer Inspector 1 03/06/2024 11:28 EST Sodium Chloride 0.9% [...] Height 168.5 cm Admission Weight 70 kg Decker Body Weight 60.08 kg Admission Body Mass [...] Quadrants Present Skin Temperature Warm Skin Description [place] Characteristics of Speech Clear Level of Consciousness Alert Strength All Extremities Strong Affect/Behavior Appropriate, Calm, Cooperative Orientation Oriented x 4 Standard Safety ID band on, Allergy Band on, Call device within reach, Bed in low position, Wheels locked 03/06/2024 11:07 EST Designated Person #1 We May Share MELECIO Morillo [phone] Designated Person #1 Relationship Son Privacy Restrictions Requested None Height 168.5 cm Decker Body Weight 60.08 kg Status No, per [...] Teaching Method Printed materials Preferred Spoken Language Faroese Preferred Written Language Faroese Patient's Current Physicians Trayko Discharge To, Anticipated [...] Intake 03/05/2024 18:15 . Assessment and Plan [place] [employer] Anesthesi[employer] (ASA) physical status classification: Class II. Anesthetic Preoperative Plan Premedication: intravenous. Anesthetic technique: MAC. Induction: intravenously. Maintenance airway: Mask. Risks discussed: nausea, vomiting, headache, sore throat, dental injury, hypotension, allergic reaction, serious complications. Informed consent: signed by patient. Digitally Signed by FLAKITO AWAD on 03/06/2024 11:53 AM [facility] Evaluation + Plan note No data available for this section [facility] Evaluation + Plan note Future Appointments Appointment Date:12/04/2021 10:00:00 AM Scheduled Provider:SRIDHAR MONTERO DO Location:[facility] Appointment Type:PC Wellness Medicare [facility] [place] Evaluation + Plan note Future Appointments Appointment Date:07/15/2021 11:00:00 AM Scheduled Provider: Location:[facility] Appointment Type:PT Treatment - [place] Appointment Date:07/18/2021 11:00:00 AM Scheduled Provider: Location:[facility] Appointment Type:PT Treatment - [place] Appointment Date:07/22/2021 11:00:00 AM Scheduled Provider: Location:[facility] Appointment Type:PT Treatment - [place] Appointment Date:07/25/2021 11:00:00 AM Scheduled Provider: Location:[facility] Appointment Type:PT Treatment - [place] Appointment Date:12/04/2021 10:00:00 AM Scheduled Provider:SRIDHAR MONTERO DO [facility] App[facility] Type:PC Wellness Medicare [facility] [place] Evaluation + Plan note Future Appointments Appointment Date:12/19/2021 10:30:00 AM Scheduled Provider:SRIDHAR MONTERO DO Location:[facility] Appointment Type:PC Wellness Medicare [facility] [place] Evaluation + Plan note Future Appointments Appointment Date:12/30/2021 09:30:00 AM Scheduled Provider: Location:[facility] Appointment Type:US Abdomen/Aorta Appointment Date:01/22/2022 09:00:00 AM Scheduled Provider:SRIDHAR MONTERO DO Location:[facility] Appointment Type: Office Procedure Foreign Body Removal Appointment Date:06/19/2022 11:00:00 AM Scheduled Provider:SRIDHAR MONTERO DO Location:[facility] Appointment Type:PC OV Future Scheduled Tests Laboratory* Rubella Antibody 12/19/21 * Lipid Profile 12/19/21 * Hepatitis C Antibody IgG 12/19/21 * Mumps Antibody 12/19/21 * Rubeola IgG Antibody 12/19/21 * Complete Metabolic Panel 12/19/21 [facility] Evaluation + Plan note Future Appointments Appointment Date:06/19/2022 11:00:00 AM Scheduled Provider:SRIDHAR MONTERO DO Location:[facility] Appointment Type:PC OV Future Scheduled Tests Laboratory* Rubella Antibody 12/19/21 * Lipid Profile 12/19/21 * Hepatitis C Antibody IgG 12/19/21 * Mumps Antibody 12/19/21 * Rubeola IgG Antibody 12/19/21 * Complete Metabolic Panel 12/19/21 [facility] Evaluation + Plan note Future Appointments Appointment Date:07/12/2023 01:00:00 PM Scheduled Provider:SRIDHAR MONTERO DO Location:[facility] Appointment Type:PC OV Future Scheduled Tests Laboratory* Rubella Antibody 01/11/23 * Lipid Profile 01/11/23 * Hepatitis C Antibody IgG 01/11/23 * Mumps Antibody 01/11/23 * Rubeola IgG Antibody 01/11/23 * Complete Metabolic Panel 01/11/23 [facility] Evaluation + Plan note Future Appointments Appointment Date:01/14/2024 09:30:00 AM Scheduled Provider:SRIDHAR MONTERO DO Location:[facility] Appointment Type:PC Wellness Medicare Future Scheduled Tests Laboratory* Rubella Antibody 01/11/23 * Lipid Profile 01/11/23 * Hepatitis C Antibody IgG 01/11/23 * Mumps Antibody 01/11/23 * Rubeola IgG Antibody 01/11/23 * Complete Metabolic Panel 01/11/23 [facility] Evaluation + Plan note Future Appointments Appointment Date:03/08/2024 08:30:00 AM Scheduled Provider:SRIDHAR MONTERO DO Location:[facility] Appointment Type:PC OV Appointment Date:07/13/2024 08:30:00 AM Scheduled Provider:SRIDHAR MONTERO DO Location:[facility] Appointment Type:PC OV Future Scheduled Tests Laboratory* Urinalysis w/ C&S if Indicated 12/27/23 * Urinalysis w/ C&S if Indicated 01/26/24 * Thyroid Stimulating Hormone 01/20/24 * Free T4 01/20/24 * A1C Hemoglobin 01/20/24 * Complete Blood Count 01/20/24 * Lipid Profile 01/20/24 * Vitamin D Level 01/20/24 * Complete Metabolic Panel 01/20/24 [facility] Evaluation + Plan note Future Appointments Appointment Date:05/10/2024 09:00:00 AM Scheduled Provider:SRIDHAR MONTERO DO Location:[facility] Appointment Type:PC OV Appointment Date:07/13/2024 08:30:00 AM Scheduled Provider:SRIDHAR MONTERO DO Location:[facility] Appointment Type:PC OV Future Scheduled Tests Laboratory* Thyroid Stimulating Hormone 03/08/24 * Free T4 03/08/24 * Vitamin D Level 03/08/24 [facility] Evaluation + Plan note Future Appointments Appointment Date:06/21/2024 09:00:00 AM Scheduled Provider:SRIDHAR MONTERO DO Location:[facility] Appointment Type:PC OV Appointment Date:07/13/2024 08:30:00 AM Scheduled Provider:SRIDHAR MONTERO DO Location:[facility] Appointment Type:PC OV Future Scheduled Tests Laboratory* Thyroid Stimulating Hormone 03/08/24 * Free T4 03/08/24 * Vitamin D Level 03/08/24 [facility] Evaluation + Plan note Future Appointments Appointment Date:12/21/2024 08:30:00 AM Scheduled Provider:SRIDHAR MONTERO DO Location:[facility] Appointment Type:PC OV Follow Up Appointment Date:03/15/2025 08:30:00 AM Scheduled Provider:SRIDHAR MONTERO DO [facility] App[facility] Type: Wellness Medicare Future Scheduled [...] Level 09/21/24 * Vitamin D Level 03/08/24 [facility] evaluation + Plan note Future Appointments Appointment Date:03/15/2025 08:30:00 AM Scheduled Provider:SRIDHAR MONTERO DO Location:[facility] Appointment Type:PC Wellness Medicare Future Scheduled Tests Laboratory* Thyroid Stimulating Hormone 03/08/24 * Free T4 03/08/24 * Vitamin D Level 03/08/24 [facility] evaluation note* Diagnosis Paroxysmal atrial fibrillation (HCC)- Primary Atrial fibrillation [facility] Diagnosis 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 [facility]* Diagnosis Women's annual routine gynecological examination- Primary Screening for malignant neoplasm of cervix Screening for malignant neoplasm of the cervix Breast cancer screening by mammogram Postmenopausal osteoporosis Senile osteoporosis At high risk for fracture Atrophic vaginitis Postmenopausal atrophic vaginitis [facility]* Diagnosis Breast cancer screening by mammogram [facility]* Diagnosis Paroxysmal atrial fibrillation (HCC) Atrial fibrillation [facility]* Diagnosis Paroxysmal atrial fibrillation (HCC)- Primary Atrial fibrillation PAC (premature atrial contraction) Supraventricular premature beats documented [facility] encounter [facility]* Diagnosis Left knee pain, unspecified chronicity- Primary [facility]* Diagnosis Status post revision of total replacement of left knee- Primary [facility]* Diagnosis Women's annual routine gynecological examination- [...] leiomyoma, unspecified location [facility]* Diagnosis Paroxysmal atrial fibrillation (HCC) Atrial fibrillation [facility]* Diagnosis History of atrial fibrillation- Primary Personal history of other diseases of circulatory system PAC (premature atrial contraction) Supraventricular premature beats Palpitations half-way current use of antiarrhythmic drug At risk for stroke Other specified personal history presenting hazards to health Hyperkalemia Hyperpotassemia [facility]* Diagnosis Breast cancer screening by mammogram [facility]* Diagnosis History of atrial fibrillation Personal history of other diseases of circulatory system PAC (premature atrial contraction) Supraventricular premature beats Palpitations 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 [facility]* Diagnosis History of atrial fibrillation Personal history of other diseases of circulatory system PAC (premature atrial contraction) Supraventricular premature beats Palpitations half-way current use of antiarrhythmic drug [facility]* Diagnosis Paroxysmal atrial fibrillation (HCC)- Primary Atrial fibrillation half-way current use of antiarrhythmic drug PAC (premature atrial contraction) Supraventricular premature beats [facility]* Diagnosis Dysuria- Primary Urinary frequency Urinary urgency Urgency of urination [facility]* Diagnosis Left knee pain, unspecified chronicity [facility]* Diagnosis Anemia, unspecified type- Primary [facility] Diagnosis Iron 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 dietary iron intake- Primary [facility]* Diagnosis Iron 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 dietary iron intake- Primary [facility]* Diagnosis Iron 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 dietary iron intake- Primary [facility]* Diagnosis History of atrial fibrillation Personal history of other diseases of circulatory system PAC (premature atrial contraction) Supraventricular premature beats Palpitations half-way current use of antiarrhythmic drug [facility]* Diagnosis Iron 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 dietary iron intake- Primary [facility]* Diagnosis Iron 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 dietary iron intake- Primary [facility]* Diagnosis Iron 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 dietary iron intake- Primary [facility]* Diagnosis Paroxysmal atrial fibrillation (HCC) Atrial fibrillation documented [facility]* Diagnosis Iron deficiency anemia, unspecified iron deficiency anemia type- Primary Iron 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 dietary iron intake Anemia, unspecified type [facility]* Diagnosis Paroxysmal atrial fibrillation (HCC)- Primary Atrial fibrillation At risk for stroke Other specified personal history presenting hazards to health Anemia, unspecified type documented in this encounter [facility] note* Diagnosis Personal history of colon cancer- Primary Personal history of malignant neoplasm of large intestine documented in this encounter [facility] note* Diagnosis Encounter for screening for malignant neoplasm of colon- Primary Special screening for malignant neoplasms, colon Personal history of colon cancer Personal history of malignant neoplasm of large intestine documented in this encounter [facility] note* Diagnosis Paroxysmal atrial fibrillation (HCC)- Primary Atrial fibrillation documented in this encounter [facility] note* Diagnosis Paroxysmal atrial fibrillation (HCC)- Primary Atrial fibrillation At risk for altered cerebral tissue perfusion due to history of stroke At risk for stroke Other specified personal history presenting hazards to health documented in this encounter [facility] note* Diagnosis Atrial fibrillation (HCC)- Primary Atrial [...] contraction) Supraventricular premature beats long term care pharmacist current use of anticoagulant Long-term (current) use of anticoagulants documented in this encounter [facility] note* Diagnosis Atrial fibrillation (HCC)- Primary Atrial [...] Dyspnea, unspecified type documented in this encounter [facility] note* Diagnosis Atrial fibrillation (HCC)- Primary Atrial fibrillation Hypothyroidism Unspecified hypothyroidism Unresponsive episode Other alteration of consciousness Acute encephalopathy Encephalopathy, unspecified Leukocytosis Leukocytosis, unspecified Complication of anesthesia Unspecified adverse effect of anesthesia Encephalopathy Encephalopathy, unspecified Status post ablation of atrial flutter Other postprocedural status Typical atrial flutter (HCC) Atrial flutter Left knee pain, unspecified chronicity- Primary documented in this encounter [facility] note* Diagnosis Atrial fibrillation (HCC)- Primary Atrial [...] joint, lower leg documented in this encounter [facility] note* Diagnosis Atrial fibrillation (HCC)- Primary Atrial fibrillation Hypothyroidism Unspecified hypothyroidism Unresponsive episode Other alteration of consciousness Acute encephalopathy Encephalopathy, unspecified Leukocytosis Leukocytosis, unspecified Complication of anesthesia Unspecified adverse effect of anesthesia Encephalopathy Encephalopathy, unspecified Status post ablation of atrial flutter Other postprocedural status Typical atrial flutter (HCC) Atrial flutter Left knee pain, unspecified chronicity documented in this encounter [facility] note* Diagnosis Atrial fibrillation (HCC)- Primary Atrial [...] joint, lower leg documented in this encounter [facility]* Diagnosis Atrial fibrillation (HCC)- Primary Atrial [...] joint, lower leg documented in this encounter [facility] note* Diagnosis Atrial fibrillation (HCC)- Primary Atrial [...] joint, lower leg documented in this encounter [facility] note* Diagnosis Atrial fibrillation (HCC)- Primary Atrial fibrillation Hypothyroidism Unspecified hypothyroidism Unresponsive episode Other alteration of consciousness Acute encephalopathy Encephalopathy, unspecified Leukocytosis Leukocytosis, unspecified Complication of anesthesia Unspecified adverse effect of anesthesia Encephalopathy Encephalopathy, unspecified Status post ablation of atrial flutter Other postprocedural status Typical atrial flutter (HCC) Atrial flutter Failure of total knee replacement, subsequent encounter- Primary documented in this encounter [facility] Discharge instructions No data available for this section [facility] note No data available for this section [facility] Reason for referral (narrative)* Diagnostic Procedure Only (Routine) - Pending Review Specialty Diagnoses / Procedures Referred By Marvin pena Referred To Contact [facility] Diagnoses Breast cancer screening by mammogram Procedures NILO SCREENING SCREENING MAMMOGRAPHY BI 2-VIEW BREAST INC Gaye Ross PA-C [address] [address] [facility] [address] [place] [address] Referral ID Status Reason Start Date Expiration Date Visits Requested Visits Authorized [id number] Pending Review Auto-Generat ed Referral 10/08/2021 11/07/2022 1 1 [facility] for referral (narrative)* Diagnostic Procedure Only (Routine) - Closed Specialty Diagnoses / Procedures Referred By Marvin pena Referred To Contact [facility] Diagnoses Breast cancer screening by mammogram Procedures NILO SCREENING SCREENING MAMMOGRAPHY BI 2-VIEW BREAST INC Gaye Ross PA-C [address] [address] [facility] [address] [place] [address] Referral ID Status Reason Start Date Expiration Date V isits Requested Visits Authorized [id number] Closed Auto-Generate d Referral 10/08/2021 11/07/2022 1 1 [facility] for referral (narrative)* Diagnostic Procedure Only (Routine) - Authorized Specialty Diagnoses / Procedures [facility] To [facility] Diagnoses Left knee pain, unspecified chronicity Procedures XR KNEE POST OP 3V AP/LAT/MERCHANT LEFT RADIOLOGIC EXAMINATION KNEE 3 VIEWS Jose Gutierrez APRN.POOJA [address] [address] [facility] Referral ID Status Reason Start Date Expiration Date Visits Requested Visits Authorized [id number] Authorized Auto-Generat ed Referral 06/18/2022 07/17/2023 1 1 [facility] for referral (narrative)* Diagnostic Procedure Only (Routine) - Pending Review Specialty Diagnoses / Procedures [facility] To [facility] Diagnoses Breast cancer screening by mammogram Procedures NILO SCREENING SCREENING MAMMOGRAPHY BI 2-VIEW BREAST INC Gaye Ross PA-C [address] [address] [facility] [address] [place] [address] Referral ID Status Reason Start Date Expiration Date Visits Requested Visits Authorized [id number] Pending Review Auto-Generat ed Referral 10/12/2022 11/11/2023 1 1 [facility] for referral (narrative)* Outpatient Procedure (Routine) - Pending Review Specialty Diagnoses / Procedures [facility] Diagnoses History of atrial fibrillation PAC (premature atrial contraction) Palpitations half-way current use of antiarrhythmic drug Procedures ECHO ECHO TTHRC R-T 2D W/WOM-MODE COMPL SPEC&COLR D Lilia Martinez APRN.TOE POUNDER [address] [place] [address] [facility] [place] [address] [place] [address] Referral ID Status Reason Start Date Expiration Date Visits Requested Visits Authorized [id number] Pending Review Auto-Generat ed Referral 05/28/2023 05/27/2024 1 1 [facility] for referral (narrative)* Outpatient Procedure (Routine) - Closed Specialty Diagnoses / Procedures Referred By Marvin pena Referred To Contact [facility] [place] Diagnoses History of atrial fibrillation PAC (premature atrial contraction) Palpitations 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 Procedures ECHO ECHO TTHRC R-T 2D W/WOM-MODE COMPL SPEC&COLR D Lilia Martinez APRN.TOE POUNDER [address] [place] [address] [facility] [address] [address] Referral ID Status Reason Start Date Expiration Date V isits Requested Visits Authorized [id number] Closed Auto-Generate d Referral 05/28/2023 05/27/2024 1 1 [facility] for referral (narrative)* Diagnostic Procedure Only (Routine) - Closed Specialty Diagnoses / Procedures Referred By Marvin pena Referred To Contact [facility] Diagnoses Left knee pain, unspecified chronicity Procedures XR KNEE POST OP 3V AP/LAT/MERCHANT LEFT RADIOLOGIC EXAMINATION KNEE 3 VIEWS Jose Gutierrez APRN.CNP [address] [address] [place] [id number] Referral ID Status Reason Start Date Expiration Date V isits Requested Visits Authorized [id number] Closed Auto-Generate d Referral 06/18/2022 07/17/2023 1 1 [facility] for visit Narrative* Outpatient Procedure (Routine) - Closed Specialty Diagnoses / Procedures Referred By Marvin t Referred To Contact [facility] [place] Diagnoses History of atrial fibrillation PAC (premature atrial contraction) Palpitations half-way current use of antiarrhythmic drug Procedures ECHO ECHO TTHRC R-T 2D W/WOM-MODE COMPL SPEC&COLR Lilia Ledezma APRN.TOE POUNDER [address] [place] [address] [facility] [place] [address] [place] [address] Referral ID Status Reason Start Date Expiration Date V isits Requested Visits Authorized [id number] Closed Auto-Generate d Referral 05/28/2023 05/27/2024 1 1 [facility] for visit Narrative* Diagnostic Procedure Only (Routine) - Closed Specialty Diagnoses / Procedures Referred By Contac t Referred To Contact [facility] Diagnoses Left knee pain, unspecified chronicity Procedures XR KNEE POST OP 3V AP/LAT/MERCHANT LEFT RADIOLOGIC EXAMINATION KNEE 3 VIEWS Jose Gutierrez, CAMPAIGN DEVELOPER.TOE POUNDER [address] [address] [place] [address] Referral ID Status Reason Start Date Expiration Date V isits Requested Visits Authorized [id number] Closed Auto-Generate d Referral 06/18/2022 07/17/2023 1 1 [facility] for visit Narrative* Outpatient Procedure (Routine) - Closed Specialty Diagnoses / Procedures Referred By Contac t Referred To Contact [facility] Diagnoses Personal history of colon cancer Procedures COLONOSCOPY SCREENING COLONOSCOPY FLX DX W/COLLJ SPEC WHEN PFRMD Elizabeth Roger MD [address] [place] [address] Phone: tel: fax: [facility] [address] [place] [address] Referral ID Status Reason Start Date Expiration Date V isits Requested Visits Authorized [id number] Closed Auto-Generate d Referral 07/21/2024 07/21/2025 1 1 [facility] for visit Narrative* Diagnostic Procedure Only (Routine) - Closed Specialty Diagnoses / Procedures Referred By Contac t Referred To Contact [facility] Diagnoses Left knee pain, unspecified chronicity Procedures XR KNEE POST OP 3V AP/LAT/MERCHANT LEFT RADIOLOGIC EXAMINATION KNEE 3 VIEWS Jose Gutierrez, CAMPAIGN DEVELOPER.TOE POUNDER [address] [place] [address] Phone: tel: fax: [place] [id number] Referral ID Status Reason Start Date Expiration Date V isits Requested Visits Authorized [id number] Closed Auto-Generate d Referral 10/31/2024 11/30/2025 1 1 [facility] Family History No Family History Records Found [...] FoundDocuments on File Type Date Recorded Patient Rebar Worker Expl anation Advance Directive(s) 07/09/2008 6:25 AM Date Activated Date Inactivated Comments 09/22/2024 5:43 PM Question Answer Comments Full Code Order Discussed With: Patient Documents on File Type Date Recorded Patient Rebar Worker Expl anation Advance Directive(s) 07/09/2008 6:25 AM Advance Directive Response Recorded Date/ Time Living Will No June 25, 2021 11:34am Power of Water Ski Assembler No June 25 11:34am Date Activated Date [...] PACC - PRE ANESTHESIA CONSULTATION CLINIC OFFICE/OUTPATIENT [facility] 60-74 MINUTES Jaciel Hurd MD [address] [address] Referral ID Status Reason Start Date Expiration Date Visits Requested Visits Authorized [id number] Pending Review PCP Requested Referral 07/18/2022 07/18/2023 1 1 Additional Source Comments INFORMATION SOURCE (unrecogn ized section and content) DATE CREATED AUTHOR 03/20/2020 [facility] DATE CREATED AUTHOR AUTHOR'S ORGANIZ ATION 04/25/[address] [facility] DATE CREATED AUTHOR AUTHOR'S ORGANIZ ATION 05/08/2020 [facility] DATE CREATED AUTHOR AUTHOR'S ORGANIZ ATION 11/09/2020 [facility] DATE CREATED AUTHOR AUTHOR'S ORGANIZ ATION 11/09/2020 [facility] DATE CREATED AUTHOR AUTHOR'S ORGANIZ ATION 12/06/2023 [facility] ([place] DATE CREATED AUTHOR AUTHOR'S ORGANIZ ATION 03/18/2024 [facility] DATE CREATED AUTHOR AUTHOR'S ORGANIZ ATION 12/17/2024 [facility] DATE CREATED AUTHOR AUTHOR'S ORGANIZ ATION 02/01/2025 [facility] DATE CREATED AUTHOR AUTHOR'S ORGANIZ ATION 02/07/2025 [facility] DATE CREATED AUTHOR AUTHOR'S ORGANIZ ATION 02/08/2025 [facility] Source Comments (unrecognize d section and content) In the event this informatio n is protected by the Federal Confidentiality of Alcohol and Drug Abuse Patient Records regulations: The Federal rules restrict any use of the information to criminally investigate or prosecute any alcohol or drug abuse patient.[facility] the event this information is protected by the Federal Confidentiality of Alcohol and Drug Abuse Patient Records regulations: The Federal rules restrict any use of the information to criminally investigate or prosecute any alcohol or drug abuse patient.[facility] the event this information is protected by the Federal Confidentiality of Alcohol and Drug Abuse Patient Records regulations: The Federal rules restrict any use of the information to criminally investigate or prosecute any alcohol or drug abuse patient.[facility] the event this information is protected by the Federal Confidentiality of Alcohol and Drug Abuse Patient Records regulations: The Federal rules restrict any use of the information to criminally investigate or prosecute any alcohol or drug abuse patient.[facility] the event this information is protected by the Federal Confidentiality of Alcohol and Drug Abuse Patient Records regulations: The Federal rules restrict any use of the information to criminally investigate or prosecute any alcohol or drug abuse patient.[facility] the event this information is protected by the Federal Confidentiality of Alcohol and Drug Abuse Patient Records regulations: The Federal rules restrict any use of the information to criminally investigate or prosecute any alcohol or drug abuse patient.[facility] the event this information is protected by the Federal Confidentiality of Alcohol and Drug Abuse Patient Records regulations: The Federal rules restrict any use of the information to criminally investigate or prosecute any alcohol or drug abuse patient.[facility] the event this information is protected by the Federal Confidentiality of Alcohol and Drug Abuse Patient Records regulations: The Federal rules restrict any use of the information to criminally investigate or prosecute any alcohol or drug abuse patient.[facility] the event this information is protected by the Federal Confidentiality of Alcohol and Drug Abuse Patient Records regulations: The Federal rules restrict any use of the information to criminally investigate or prosecute any alcohol or drug abuse patient.[facility] event this information is protected by the Federal Confidentiality of Alcohol and Drug Abuse Patient Records regulations: The Federal rules restrict any use of the information to criminally investigate or prosecute any alcohol or drug abuse patient.[facility] event this information is protected by the Federal Confidentiality of Alcohol and Drug Abuse Patient Records regulations: The Federal rules restrict any use of the information to criminally investigate or prosecute any alcohol or drug abuse patient.[facility] the event this information is protected by the Federal Confidentiality of Alcohol and Drug Abuse Patient Records regulations: The Federal rules restrict any use of the information to criminally investigate or prosecute any alcohol or drug abuse patient.[facility] the event this information is protected by the Federal Confidentiality of Alcohol and Drug Abuse Patient Records regulations: The Federal rules restrict any use of the information to criminally investigate or prosecute any alcohol or drug abuse patient.[facility] the event this information is protected by the Federal Confidentiality of Alcohol and Drug Abuse Patient Records regulations: The Federal rules restrict any use of the information to criminally investigate or prosecute any alcohol or drug abuse patient.[facility] the event this information is protected by the Federal Confidentiality of Alcohol and Drug Abuse Patient Records regulations: The Federal rules restrict any use of the information to criminally investigate or prosecute any alcohol or drug abuse patient.[facility] the event this information is protected by the Federal Confidentiality of Alcohol and Drug Abuse Patient Records regulations: The Federal rules restrict any use of the information to criminally investigate or prosecute any alcohol or drug abuse patient.[facility] the event this information is protected by the Federal Confidentiality of Alcohol and Drug Abuse Patient Records regulations: The Federal rules restrict any use of the information to criminally investigate or prosecute any alcohol or drug abuse patient.[facility] the event this information is protected by the Federal Confidentiality of Alcohol and Drug Abuse Patient Records regulations: The Federal rules restrict any use of the information to criminally investigate or prosecute any alcohol or drug abuse patient.[facility] the event this information is protected by the Federal Confidentiality of Alcohol and Drug Abuse Patient Records regulations: The Federal rules restrict any use of the information to criminally investigate or prosecute any alcohol or drug abuse patient.[facility] the event this information is protected by the Federal Confidentiality of Alcohol and Drug Abuse Patient Records regulations: The Federal rules restrict any use of the information to criminally investigate or prosecute any alcohol or drug abuse patient.[facility] the event this information is protected by the Federal Confidentiality of Alcohol and Drug Abuse Patient Records regulations: The Federal rules restrict any use of the information to criminally investigate or prosecute any alcohol or drug abuse patient.[facility] the event this information is protected by the Federal Confidentiality of Alcohol and Drug Abuse Patient Records regulations: The Federal rules restrict any use of the information to criminally investigate or prosecute any alcohol or drug abuse patient.[facility] the event this information is protected by the Federal Confidentiality of Alcohol and Drug Abuse Patient Records regulations: The Federal rules restrict any use of the information to criminally investigate or prosecute any alcohol or drug abuse patient.[facility] the event this information is protected by the Federal Confidentiality of Alcohol and Drug Abuse Patient Records regulations: The Federal rules restrict any use of the information to criminally investigate or prosecute any alcohol or drug abuse patient.[facility] the event this information is protected by the Federal Confidentiality of Alcohol and Drug Abuse Patient Records regulations: The Federal rules restrict any use of the information to criminally investigate or prosecute any alcohol or drug abuse patient.[facility] the event this information is protected by the Federal Confidentiality of Alcohol and Drug Abuse Patient Records regulations: The Federal rules restrict any use of the information to criminally investigate or prosecute any alcohol or drug abuse patient.[facility] the event this information is protected by the Federal Confidentiality of Alcohol and Drug Abuse Patient Records regulations: The Federal rules restrict any use of the information to criminally investigate or prosecute any alcohol or drug abuse patient.[facility] the event this information is protected by the Federal Confidentiality of Alcohol and Drug Abuse Patient Records regulations: The Federal rules restrict any use of the information to criminally investigate or prosecute any alcohol or drug abuse patient.[facility] the event this information is protected by the Federal Confidentiality of Alcohol and Drug Abuse Patient Records regulations: The Federal rules restrict any use of the information to criminally investigate or prosecute any alcohol or drug abuse patient.[facility] the event this information is protected by the Federal Confidentiality of Alcohol and Drug Abuse Patient Records regulations: The Federal rules restrict any use of the information to criminally investigate or prosecute any alcohol or drug abuse patient.[facility] the event this information is protected by the Federal Confidentiality of Alcohol and Drug Abuse Patient Records regulations: The Federal rules restrict any use of the information to criminally investigate or prosecute any alcohol or drug abuse patient.[facility] the event this information is protected by the Federal Confidentiality of Alcohol and Drug Abuse Patient Records regulations: The Federal rules restrict any use of the information to criminally investigate or prosecute any alcohol or drug abuse patient.[facility] the event this information is protected by the Federal Confidentiality of Alcohol and Drug Abuse Patient Records regulations: The Federal rules restrict any use of the information to criminally investigate or prosecute any alcohol or drug abuse patient.[facility] the event this information is protected by the Federal Confidentiality of Alcohol and Drug Abuse Patient Records regulations: The Federal rules restrict any use of the information to criminally investigate or prosecute any alcohol or drug abuse patient.[facility] the event this information is protected by the Federal Confidentiality of Alcohol and Drug Abuse Patient Records regulations: The Federal rules restrict any use of the information to criminally investigate or prosecute any alcohol or drug abuse patient.[facility] the event this information is protected by the Federal Confidentiality of Alcohol and Drug Abuse Patient Records regulations: The Federal rules restrict any use of the information to criminally investigate or prosecute any alcohol or drug abuse patient.[facility] the event this information is protected by the Federal Confidentiality of Alcohol and Drug Abuse Patient Records regulations: The Federal rules restrict any use of the information to criminally investigate or prosecute any alcohol or drug abuse patient.[facility] the event this information is protected by the Federal Confidentiality of Alcohol and Drug Abuse Patient Records regulations: The Federal rules restrict any use of the information to criminally investigate or prosecute any alcohol or drug abuse patient.[facility]In the event this information is protected by the Federal Confidentiality of Alcohol and Drug Abuse Patient Records regulations: The Federal rules restrict any use of the information to criminally investigate or prosecute any alcohol or drug abuse patient.[facility] the event this information is protected by the Federal Confidentiality of Alcohol and Drug Abuse Patient Records regulations: The Federal rules restrict any use of the information to criminally investigate or prosecute any alcohol or drug abuse patient.[facility]In the event this information is protected by the Federal Confidentiality of Alcohol and Drug Abuse Patient Records regulations: The Federal rules restrict any use of the information to criminally investigate or prosecute any alcohol or drug abuse patient.[facility]In the event this information is protected by the Federal Confidentiality of Alcohol and Drug Abuse Patient Records regulations: The Federal rules restrict any use of the information to criminally investigate or prosecute any alcohol or drug abuse patient.[facility] the event this information is protected by the Federal Confidentiality of Alcohol and Drug Abuse Patient Records regulations: The Federal rules restrict any use of the information to criminally investigate or prosecute any alcohol or drug abuse patient.Summa HealthIn the event this information is protected by the Federal Confidentiality of Alcohol and Drug Abuse Patient Records regulations: The Federal rules restrict any use of the information to criminally investigate or prosecute any alcohol or drug abuse patient.Summa HealthIn the event this information is protected by the Federal Confidentiality of Alcohol and Drug Abuse Patient Records regulations: The Federal rules restrict any use of the information to criminally investigate or prosecute any alcohol or drug abuse patient.Summa HealthIn the event this information is protected by the Federal Confidentiality of Alcohol and Drug Abuse Patient Records regulations: The Federal rules restrict any use of the information to criminally investigate or prosecute any alcohol or drug abuse patient.Summa HealthIn the event this information is protected by the Federal Confidentiality of Alcohol and Drug Abuse Patient Records regulations: The Federal rules restrict any use of the information to criminally investigate or prosecute any alcohol or drug abuse patient.Summa HealthIn the event this information is protected by the Federal Confidentiality of Alcohol and Drug Abuse Patient Records regulations: The Federal rules restrict any use of the information to criminally investigate or prosecute any alcohol or drug abuse patient.Summa HealthIn the event this information is protected by the Federal Confidentiality of Alcohol and Drug Abuse Patient Records regulations: The Federal rules restrict any use of the information to criminally investigate or prosecute any alcohol or drug abuse patient.Summa HealthIn the event this information is protected by the Federal Confidentiality of Alcohol and Drug Abuse Patient Records regulations: The Federal rules restrict any use of the information to criminally investigate or prosecute any alcohol or drug abuse patient.Summa HealthIn the event this information is protected by the Federal Confidentiality of Alcohol and Drug Abuse Patient Records regulations: The Federal rules restrict any use of the information to criminally investigate or prosecute any alcohol or drug abuse patient.Summa HealthIn the event this information is protected by the Federal Confidentiality of Alcohol and Drug Abuse Patient Records regulations: The Federal rules restrict any use of the information to criminally investigate or prosecute any alcohol or drug abuse patient.Summa HealthIn the event this information is protected by the Federal Confidentiality of Alcohol and Drug Abuse Patient Records regulations: The Federal rules restrict any use of the information to criminally investigate or prosecute any alcohol or drug abuse patient.Summa HealthIn the event this information is protected by the Federal Confidentiality of Alcohol and Drug Abuse Patient Records regulations: The Federal rules restrict any use of the information to criminally investigate or prosecute any alcohol or drug abuse patient.Summa HealthIn the event this information is protected by the Federal Confidentiality of Alcohol and Drug Abuse Patient Records regulations: The Federal rules restrict any use of the information to criminally investigate or prosecute any alcohol or drug abuse patient.Summa HealthIn the event this information is protected by the Federal Confidentiality of Alcohol and Drug Abuse Patient Records regulations: The Federal rules restrict any use of the information to criminally investigate or prosecute any alcohol or drug abuse patient.Summa HealthIn the event this information is protected by the Federal Confidentiality of Alcohol and Drug Abuse Patient Records regulations: The Federal rules restrict any use of the information to criminally investigate or prosecute any alcohol or drug abuse patient.Summa HealthIn the event this information is protected by the Federal Confidentiality of Alcohol and Drug Abuse Patient Records regulations: The Federal rules restrict any use of the information to criminally investigate or prosecute any alcohol or drug abuse patient.Summa HealthIn the event this information is protected by the Federal Confidentiality of Alcohol and Drug Abuse Patient Records regulations: The Federal rules restrict any use of the information to criminally investigate or prosecute any alcohol or drug abuse patient.[facility] Reason for Visit (unrecogniz ed section and content) Reason Comments Medication Problem Reason Comments Refill Request Reason Comments Refill Request LIOTHYRONINE Reason Comments Future 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 Radiology Mammogram Specialty Diagnoses / Procedures Referred By Contac t Referred To Contact [facility] Diagnoses Breast cancer screening by mammogram Procedures NILO SCREENING SCREENING MAMMOGRAPHY BI 2-VIEW BREAST INC Gaye Ross PA-C [address] [place] [address] [facility] [address] [place] [address] Referral ID Status Reason Start Date Expiration Date V isits Requested Visits Authorized [id number] Closed Auto-Generate d Referral 10/08/2021 11/07/2022 1 1 Reason Comments CARD Follow Up Annual PAF Reason Comments Appointment Reason Comments New Pain Reason Comments Cardiology Follow Up PAF Reason Comments Radiology Mammogram Specialty Diagnoses / Procedures Referred By Marvin t Referred To Contact [facility] Diagnoses Breast cancer screening by mammogram Procedures NILO SCREENING SCREENING MAMMOGRAPHY BI 2-VIEW BREAST INC Gaye Ross PA-C [address] [place] [address] [facility] [address] [place] [address] Referral ID Status Reason Start Date Expiration Date V isits Requested Visits Authorized [id number] Closed Auto-Generate d Referral 10/12/2022 11/11/2023 1 [...] MG Lindsey Zuniga [address] [place] [address] Thierno [facility] [address] [place] [address] Referral ID Status Reason Start Date Expiration Date V isits Requested Visits Authorized [id number] Authorized 02/16/2024 04/25/2024 99 99 Reason Onset [...] Care Teams (unrecognized sec tion and content) Rn Integrity Relationship Specialty Start Date End Date Sridhar Montero IV, MD [address] [place] [address] PCP - General Family Practice 06/09/21 Gaye Rowell PA-C 1309 [facility] 100 [place] [address] Women's Health Specialist 05/19/18 Sridhar Romo MD [address] [place] [address] Endocrinology 05/19/18 Berto Hannon [address] [place] [address] Orthopedics 05/20/18 Todd Reyes MD Referring Orthopedics 01/23/20 Rn Integrity Relationship Specialty Start Date End Date Sridhar Montero IV, MD [address] [place] [address] PCP - General Family Practice 06/09/21 Gaye Rowell PA-C [address] [address] Women's Health Specialist 05/19/18 Sridhar Romo MD [address] [place] [address] Endocrinology 05/19/18 Berto Hannon [address] [place] [address] Orthopedics 05/20/18 Todd Reyes MD Referring Orthopedics 01/23/20 Rn Integrity Relationship Specialty Start Date End Date Sridhar Montero IV, MD [address] [place] [address] PCP - General Family Practice 06/09/21 Gaye Rowell PA-C [address] [facility] 100 [place] [address] Women's Health Specialist 05/19/18 Sridhar Romo MD [address] [place] [address] Endocrinology 05/19/18 Berto Hannon [address] [place] [address] Orthopedics 05/20/18 Todd Reyes MD Referring Orthopedics 01/23/20 Rn Integrity Relationship Specialty Start Date End Date Sridhar Montero IV, MD [address] [place] [address] PCP - General Family Practice 06/09/21 Gaye Rowell PA-C [address] [facility] [address] [place] [address] Women's Health Specialist 05/19/18 Sridhar Romo MD [address] [place] [address] Endocrinology 05/19/18 Berto Hannon [address] [place] [address] Orthopedics 05/20/18 Todd Reyes MD Referring Orthopedics 01/23/20 Rn Integrity Relationship Specialty Start Date End Date Sridhar Montero IV, MD [address] [place] [address] PCP - General Family Medicine 06/09/21 Gaye Rowell PA-C [address] [facility] [facility] [address] [place], [place] [address] Women's Health Specialist 05/19/18 Sridhar Romo MD [address] [place] [address] Endocrinology 05/19/18 Berto Hannon [address] [place] [address] Orthopedics 05/20/18 Todd Reyes MD [address] [place] [address] Referring Orthopedics 01/23/20 Rn Integrity Relationship Specialty Start Date End Date Sridhar Montero IV, MD [address] [place] [address] PCP - General Family Medicine 06/09/21 Gaye Rowell PA-C [address] [place] [address] Women's Health Specialist 05/19/18 Sridhar Romo MD [address] [address] Endocrinology 05/19/18 Berto Hannon [address] [place] [address] Orthopedics 05/20/18 Todd Reyes MD [address] [place] [address] Referring Orthopedics 01/23/20 Rn Integrity Relationship Specialty Start Date End Date Sridhar Montero IV, MD [address] [place] [address] PCP - General Family Medicine 06/09/21 Gaye Rowell PA-C [address] [place] [address] Women's Health Specialist 05/19/18 Sridhar Romo, MD [address] [place] [address] Endocrinology 05/19/18 Berto Hannon [address] [place] [address] Orthopedics 05/20/18 Todd Reyes MD [address] [place] [address] Referring Orthopedics 01/23/20 Team Status: Active Member Role Status Dates Dr. Sridhar Montero DO Primary Care Provider Active Team Status: Inactive Member Role Status Dates Dr. Sridhar Montero DO Primary Care Provider Active Josh DENISE PA-C Attending Provider, Referring Pr ovider Active Rn Integrity Relationship Specialty Start Date End Date Sridhar Montero IV, MD [address] [place] [address] (Work) PCP - General Family Medicine 06/09/21 Gaye Rowell PA-C [address] [address] Women's Health Specialist 05/19/18 AllertonSridhar MD [address] [place] [address] Endocrinology 05/19/18 Berto Hannon [address] [place] [address] Orthopedics 05/20/18 Todd Reyes MD [address] [place] [address] Referring Orthopedics 01/23/20 Rn Integrity Relationship Specialty Start Date End Date Sridhar Montero IV, DO [address] [place] [address] PCP - General Family Medicine 06/09/21 Gaye Rowell PA-C [address] [address] Women's Health Specialist 05/19/18 AllertonSridhar sparrow MD [address] [place] [address] Endocrinology 05/19/18 Berto Hannon [address] [place] [address] Orthopedics 05/20/18 Todd Reyes MD [address] [place] [address] Referring Orthopedics 01/23/20 Rn Integrity Relationship Specialty Start Date End Date Sridhar Montero IV, [address] [address] PCP - General Family Medicine 06/09/21 Gaye Rowell PA-C [address] [address] Women's Health Specialist 05/19/18 Sridhar Romo MD [address] [place] [address] Endocrinology 05/19/18 Berto Hannon [address] [place] [address] Orthopedics 05/20/18 Todd Reyes MD [address] [place] [address] Referring Orthopedics 01/23/20 Rn Integrity Relationship Specialty Start Date End Date Sridhar Montero IV, DO [address] [place] [address] PCP - General Family Medicine 06/09/21 Gaye Rowell PA-C [address] [place] [address] Women's Health Specialist 05/19/18 Sridhar Romo MD [address] [place], [place] [address] Endocrinology 05/19/18 Berto Hannon [address] [place] [address] Orthopedics 05/20/18 Todd Reyes MD [address] [place] [address] Referring Orthopedics 01/23/20 Yolanda Cash MD [address] [place] [address] Endocrinology 10/12/22 Rn Integrity Relationship Specialty Start Date End Date Sridhar Montero IV, DO [address] [place] [address] (Work) PCP - General Family Medicine 06/09/21 Gaye Rowell PA-C [address] [place] [id number] Women's Health Specialist 05/19/18 Sridhar Romo MD [address] [place], [place] [address] Endocrinology 05/19/18 Berto Hannon [address] [place] [address] Orthopedics 05/20/18 Todd Reyes MD [address] [place] [address] Referring Orthopedics 01/23/20 Yolanda Cash MD [address] [place] [address] Endocrinology 10/12/22 Rn Integrity Relationship Specialty Start Date End Date Sridhar Montero IV, DO [address] [place] [address] PCP - General Family Medicine 06/09/21 Gaye Rowell PA-C 1309 [facility] 100 [place] [address] Women's Health Specialist 05/19/18 Sridhar Romo MD [facility] [address] [address] Endocrinology 05/19/18 Berto Hannon [address] [place] [address] Orthopedics 05/20/18 Todd Reyes MD [address] [place] [address] Referring Orthopedics 01/23/20 Yolanda Cash MD [address] [place] [address] Endocrinology 10/12/22 Rn Integrity Relationship Specialty Start Date End Date Sridhar Montero IV, DO [address] [place] [address] PCP - General Family Medicine 06/09/21 Gaye Rowell PA-C 1309 [facility] [address] [place] [address] Women's Health Specialist 05/19/18 Sridhar Romo MD [address] [place] [address] Endocrinology 05/19/18 Berto Hannon [address] [place] [address] Orthopedics 05/20/18 Todd Reyes MD [address] [place] [address] Referring Orthopedics 01/23/20 Yolanda Cash MD [address] [place] [address] Endocrinology 10/12/22 Rn Integrity Relationship Specialty Start Date End Date Sridhar Montero IV, DO [address] [place] [address] PCP - General Family Medicine 06/09/21 Gaye Rowell PA-C 1309 [facility] [address] [place] [address] Women's Health Specialist 05/19/18 Sridhar Romo MD [address] [place] [address] Endocrinology 05/19/18 Berto Hannon [address] [address] Orthopedics 05/20/18 Todd Reyes MD [address] [address] Referring Orthopedics 01/23/20 Yolanda Cash MD [address] [place] [address] Endocrinology 10/12/22 Rn Integrity Relationship Specialty Start Date End Date Sridhar Montero IV, DO [address] [place] [address] PCP - General Family Medicine 06/09/21 Gaye Rowell PA-C [address] [address] Women's Health Specialist 05/19/18 Sridhar Romo MD [address] [place] [address] Endocrinology 05/19/18 Berto Hannon 3975 [facility] [employer] [address] Orthopedics 05/20/18 Todd Reyes MD [address] [employer] [address] [place] [address] Referring Orthopedics 01/23/20 Yolanda Cash MD [address] [place] [address] Endocrinology 10/12/22 Rn Integrity Relationship Specialty Start Date End Date Sridhar Montero IV, DO [address] [place] [address] PCP - General Family Medicine 06/09/21 Gaye Rowell PA-C 1309 [facility] [address] [place] [address] Women's Health Specialist 05/19/18 AllertonSridhar sparrow MD [facility] [address] [place] [address] Endocrinology 05/19/18 Berto Hannon 3975 [facility] [employer] [address] Orthopedics 05/20/18 Todd Reyes MD 3975 [facility] [employer] [address] [place] [address] Referring Orthopedics 01/23/20 Yolanda Cash MD [address] [place] [address] Endocrinology 10/12/22 Rn Integrity Relationship Specialty Start Date End Date Sridhar Montero IV, DO [address] [place] [address] PCP - General Family Medicine 06/09/21 Gaye Rowell PA-C [address] [place] [address] Women's Health Specialist 05/19/18 Sridhar Romo MD [address] [place] [address] Endocrinology 05/19/18 Berto Hannon [address] [place] [address] Orthopedics 05/20/18 Todd Reyes MD [address] [place], [place] [address] Referring Orthopedics 01/23/20 Yolanda Cash MD [address] [place] [address] Endocrinology 10/12/22 Rn Integrity Relationship Specialty Start Date End Date Sridhar Montero IV, DO [address] [place] [address] PCP - General Family Medicine 06/09/21 Gaye Rowell PA-C [address] [place] [address] Women's Health Specialist 05/19/18 Sridhar Romo MD [address] [place] [address] Endocrinology 05/19/18 Berto Hannon [address] [place], [place] [address] Orthopedics 05/20/18 Todd Reyes MD [address] [facility] [address] [place], [place] [address] Referring Orthopedics 01/23/20 Yolanda Cash MD [address] [place] [address] Endocrinology 10/12/22 Rn Integrity Relationship Specialty Start Date End Date Sridhar Montero IV, DO [address] [place] [address] PCP - General Family Medicine 06/09/21 Gaye Rowell PA-C [address] [place] [address] Women's Health Specialist 05/19/18 Sridhar Romo MD [address] [place] [address] Endocrinology 05/19/18 Berto Hannon 39[address] [facility] [address] [address] [place] [address] Orthopedics 05/20/18 Todd Reyes MD [address] [place] [address] Referring Orthopedics 01/23/20 Rn Integrity Relationship Specialty Start Date End Date Sridhar Montero IV, DO [address] [place] [address] PCP - General Family Medicine 06/09/21 Gaye Rowell PA-C [address] [place] [address] Women's Health Specialist 05/19/18 Sridhar Romo MD [address] [place] [address] Endocrinology 05/19/18 Berto Hannon [address] [place] [address] Orthopedics 05/20/18 Todd Reyes MD [address] [facility] [facility] [place] [address] Referring Orthopedics 01/23/20 Yolanda Cash MD [address] [place] [address] Endocrinology 10/12/22 Rn Integrity Relationship Specialty Start Date End Date Sridhar Montero IV, DO [address] [place] [address] PCP - General Family Medicine 06/09/21 Gaye Rowell PA-C [address] [place] [address] Women's Health Specialist 05/19/18 Sridhar Romo MD [address] [place] [address] Endocrinology 05/19/18 Berto Hannon [address] [address] Orthopedics 05/20/18 Todd Reyes MD [address] [facility] [address] [address] Referring Orthopedics 01/23/20 Yolanda Cash MD [address] [place] [address] Endocrinology 10/12/22 Rn Integrity Relationship Specialty Start Date End Date Sridhar Montero IV, DO [address] [place] [address] PCP - General Family Medicine 06/09/21 Gaye Rowell PA-C [address] [address] Women's Health Specialist 05/19/18 Sridhar Romo MD [address] [place] [address] Endocrinology 05/19/18 Berto Hannon 39[address] [facility] [address] [facility] [address] [address] Orthopedics 05/20/18 Todd Reyes MD [address] [employer] [address] [place], [place] [address] Referring Orthopedics 01/23/20 Yolanda Cash MD [address] [place] [address] Endocrinology 10/12/22 Rn Integrity Relationship Specialty Start Date End Date Sridhar Montero IV, DO [address] [place] [address] PCP - General Family Medicine 06/09/21 Gaye Rowell PA-C [facility]9 [facility] [address] [place] [address] Women's Health Specialist 05/19/18 Allerton, Sridhar White MD [address] [place] [address] Endocrinology 05/19/18 Berto Hannon 3975 [facility] [employer] [address] [address] Orthopedics 05/20/18 Todd Reyes MD 3975 [facility] [employer] Bond [employer] AgencyY [facility] [address] [place] [address] Referring Orthopedics 01/23/20 Yolanda Cash MD [address] [place] [address] Endocrinology 10/12/22 Rn Integrity Relationship Specialty Start Date End Date Sridhar Montero IV, DO [address] [place] [address] PCP - General Family Medicine 06/09/21 Gaye Rowell PA-C [address] [place] [address] Women's Health Specialist 05/19/18 Sridhar Romo MD [address] [place] [address] Endocrinology 05/19/18 Berto Hannon [address] [place] [address] Orthopedics 05/20/18 Todd Reyes MD [address] [place] [address] Referring Orthopedics 01/23/20 Yolanda Cash MD [address] [place] [address] Endocrinology 10/12/22 Rn Integrity Relationship Specialty Start Date End Date Sridhar Montero IV, DO [address] [place] [address] PCP - General Family Medicine 06/09/21 Gaye Rowell PA-C [address] [place] [address] Women's Health Specialist 05/19/18 Sridhar Romo MD [address] [place], [place] [address] Endocrinology 05/19/18 Berto Hannon [address] [place] [address] Orthopedics 05/20/18 Todd Reyes MD [address] [place] [address] Referring Orthopedics 01/23/20 Yolanda Cash MD [address] [place] [address] Endocrinology 10/12/22 Rn Integrity Relationship Specialty Start Date End Date Sridhar Montero IV, DO [address] [place] [address] PCP - General Family Medicine 06/09/21 Gaye Rowell PA-C [address] [address] Women's Health Specialist 05/19/18 Sridhar Romo MD [address] [place] [address] Endocrinology 05/19/18 Berto Hannon [address] [place] [address] Orthopedics 05/20/18 Todd Reyes MD [address] [place] [address] Referring Orthopedics 01/23/20 Yolanda Cash MD [address] [place] [address] Endocrinology 10/12/22 Rn Integrity Relationship Specialty Start Date End Date Sridhar Montero IV, DO [address] [place] [address] PCP - General Family Medicine 06/09/21 Gaye Rowell PA-C 1309 [facility] [address] [place] [address] Women's Health Specialist 05/19/18 AllertonSridhar MD [facility] [address] [address] Endocrinology 05/19/18 Berto Hannon [address] [address] Orthopedics 05/20/18 Todd Reyes MD 3975 [facility] [address] [place] [address] Referring Orthopedics 01/23/20 Yolanda Cash MD [address] [place] [address] Endocrinology 10/12/22 Rn Integrity Relationship Specialty Start Date End Date Sridhar Montero IV, DO [address] [place] [address] PCP - General Family Medicine 06/09/21 Gaye Rowell PA-C 1309 [facility] [address] [place] [address] Women's Health Specialist 05/19/18 Sridhar Romo MD [address] [place] [address] Endocrinology 05/19/18 Berto Hannon [address] [facility] [address] [place] [address] Orthopedics 05/20/18 Todd Reyes MD [address] [facility] [address] [place], [place] [address] Referring Orthopedics 01/23/20 Yolanda Cash MD [address] [place] [address] Endocrinology 10/12/22 Rn Integrity Relationship Specialty Start Date End Date Sridhar Montero IV, DO [address] [place] [address] PCP - General Family Medicine 06/09/21 Gaye Rowell PA-C [address] [address] Women's Health Specialist 05/19/18 Sridhar Romo MD [address] [place] [address] Endocrinology 05/19/18 Berto Hannon [address] [place] [address] Orthopedics 05/20/18 Todd Reyes MD [address] [place] [address] Referring Orthopedics 01/23/20 Yolanda Cash MD [address] [place] [address] Endocrinology 10/12/22 Rn Integrity Relationship Specialty Start Date End Date Sridhar Montero IV, DO [address] [place] [address] PCP - General Family Medicine 06/09/21 Gaye Rowell PA-C 1309 [facility] 100 [place] [address] Women's Health Specialist 05/19/18 Sridhar Romo MD [address] [address] Endocrinology 05/19/18 Berto Hannon [address] [place] [address] Orthopedics 05/20/18 Todd Reyes MD [address] [place] [address] Referring Orthopedics 01/23/20 Yolanda Cash MD [address] [place] [address] Endocrinology 10/12/22 Rn Integrity Relationship Specialty Start Date End Date Sridhar Montero IV, DO [address] [place] [address] PCP - General Family Medicine 06/09/21 Gaye Rowell PA-C [address] [facility] [address] [place] [address] Women's Health Specialist 05/19/18 Sridhar Romo MD [address] [facility] [address] [place] [address] Endocrinology 05/19/18 Berto Hannon [address] [place] [address] Orthopedics 05/20/18 Todd Reyes MD [address] [place] [address] Referring Orthopedics 01/23/20 Yolanda Cash MD [address] [place] [address] Endocrinology 10/12/22 Rn Integrity Relationship Specialty Start Date End Date Sridhar Montero IV, DO [address] [place] [address] PCP - General Family Medicine 06/09/21 Gaye Rowell PA-C [address] [place] [address] Women's Health Specialist 05/19/18 Sridhar Romo MD [address] [place] [address] Endocrinology 05/19/18 Berto Hannon [address] [place] [address] Orthopedics 05/20/18 Todd Reyes MD [address] [place] [address] Referring Orthopedics 01/23/20 Yolanda Cash MD [address] [place] [address] Endocrinology 10/12/22 Rn Integrity Relationship Specialty Start Date End Date Sridhar Montero IV, DO [address] [place] [address] PCP - General Family Medicine 06/09/21 Gaye Rowell PA-C [address] [facility] [address] [place] [address] Women's Health Specialist 05/19/18 Sridhar Romo MD [address] [place] [address] Endocrinology 05/19/18 Berto Hannon [address] [address] Orthopedics 05/20/18 Todd Reyes MD [address] [address] Referring Orthopedics 01/23/20 Yolanda Cash MD [address] [place] [address] Endocrinology 10/12/22 Rn Integrity Relationship Specialty Start Date End Date Sridhar Montero IV, DO [address] [place] [address] PCP - General Family Medicine 06/09/21 Gaye Rowell PA-C [address] [place] [address] Women's Health Specialist 05/19/18 [place], Sridhar White MD [address] [place] [address] Endocrinology 05/19/18 Berto Hannon [address] [address] Orthopedics 05/20/18 Todd Reyes MD [address] [address] Referring Orthopedics 01/23/20 Yolanda Cash MD [address] [place] [address] Endocrinology 10/12/22 Rn Integrity Relationship Specialty Start Date End Date Sridhar Montero IV, DO [address] [place] [address] PCP - General Family Medicine 06/09/21 Gaye Rowell PA-C [address] [employer] [address] [place] [address] Women's Health Specialist 05/19/18 Sridhar Romo MD [address] [address] Endocrinology 05/19/18 Berto Hannon [address] [place], [place] [address] Orthopedics 05/20/18 Todd Reyes MD [address] [place], [place] [address] Referring Orthopedics 01/23/20 Yolanda Cash MD [address] [place] [address] Endocrinology 10/12/22 Rn Integrity Relationship Specialty Start Date End Date Sridhar Montero IV, DO [address] [place] [address] PCP - General Family Medicine 06/09/21 Gaye Rowell PA-C [address] [employer] [address] [place] [address] Women's Health Specialist 05/19/18 Sridhar Romo MD [address] [place] [address] Endocrinology 05/19/18 Berto Hannon [address] [place] [address] Orthopedics 05/20/18 Todd Reyes MD [address] [place], [place] [address] Referring Orthopedics 01/23/20 Yolanda Cash MD [address] [place] [address] Endocrinology 10/12/22 Rn Integrity Relationship Specialty Start Date End Date Sridhar Montero IV, DO [address] [place] [address] PCP - General Family Medicine 06/09/21 Gaye Rowlel PA-C [address] [address] Women's Health Specialist 05/19/18 Sridhar Romo MD [address] [place] [address] Endocrinology 05/19/18 Berto Hannon [address] [facility] [facility] [place] [address] Orthopedics 05/20/18 Todd Reyes MD [address] [place], [place] [address] Referring Orthopedics 01/23/20 Yolanda Cash MD [address] [place] [address] Endocrinology 10/12/22 Rn Integrity Relationship Specialty Start Date End Date Sridhar Montero IV, DO [address] [place] [address] PCP - General Family Medicine 06/09/21 Gaye Rowell PA-C [address] [facility] 100 [place] [address] Women's Health Specialist 05/19/18 AllertonSridhar MD [address] [address] Endocrinology 05/19/18 Berto Hannon [address] [facility] [facility] [address] [address] [place] [address] Orthopedics 05/20/18 Todd Reyes MD [address] [facility] [address] [place] [address] Referring Orthopedics 01/23/20 Yolanda Cash MD [address] [place] [address] Endocrinology 10/12/22 Rn Integrity Relationship Specialty Start Date End Date Sridhar Montero IV, DO [address] [place] [address] PCP - General Family Medicine 06/09/21 Gaye Rowell PA-C [address] [address] Women's Health Specialist 05/19/18 Sridhar Romo MD [address] [place] [address] Endocrinology 05/19/18 Berto Hannon [address] [facility] [address] [place] [address] Orthopedics 05/20/18 Todd Reyes MD [address] [facility] [address] [place] [address] Referring Orthopedics 01/23/20 Yolanda Cash MD [address] [place] [address] Endocrinology 10/12/22 Rn Integrity Relationship Specialty Start Date End Date Sridhar Montero IV, DO [address] [place] [address] PCP - General Family Medicine 06/09/21 Gaye Rowell PA-C [address] [address] Women's Health Specialist 05/19/18 Sridhar Romo MD [address] [place] [address] Endocrinology 05/19/18 Berto Hannon [address] [place] [address] Orthopedics 05/20/18 Todd Reyes MD [address] [facility] [address] [place] [address] Referring Orthopedics 01/23/20 Yolanda Cash MD [address] [place] [address] Endocrinology 10/12/22 Rn Integrity Relationship Specialty Start Date End Date Sridhar Montero IV, DO [address] [place] [address] PCP - General Family Medicine 06/09/21 Gaey Rowell PA-C [address]9 [facility] 100 [place] [address] Women's Health Specialist 05/19/18 Sridhar Romo MD [facility] [place] [address] Endocrinology 05/19/18 Berto Hannon [address] [facility] [address] [place] [address] Orthopedics 05/20/18 Todd Reyes MD [address] [place] [address] Referring Orthopedics 01/23/20 Yolanda Cash MD [address] [place] [address] Endocrinology 10/12/22 Rn Integrity Relationship Specialty Start Date End Date Sridhar Montero IV, DO [address] [place] [id number] PCP - General Family Medicine 06/09/21 Gaye Rowell PA-C [address]9 [facility] [address] [place] [address] Women's Health Specialist 05/19/18 Sridhar Romo MD [address] [place] [address] Endocrinology 05/19/18 Berto Hannon [address] [facility] [address] [facility] [address] [place], [place] [address] Orthopedics 05/20/18 Todd Reyes MD [address] [facility] [address] [facility] [address] [place], [place] [address] Referring Orthopedics 01/23/20 Yolanda Cash MD [address] [place] [address] Endocrinology 10/12/22 Care Team (unrecognized sect ion and content) Care Team Personnel Name: SRIDHAR MONTERO DO Position: P4 Physician - Primary Care Med Service: Active Provider Member Role: Primary Care Physician Address: Address: [address] [place] [address] [place] [address]- [place] Care Team Related Persons Name: PER PATIENT, NONE Care Team Personnel Name: SRIDHAR MONTERO DO Position: P4 Physician - Primary Care Med Service: Active Provider Member Role: Primary Care Physician Address: Address: [address] [place] [address] Care Team Related Persons Name: PER PATIENT, NONE Care Team Personnel Name: SRIDHAR MONTERO DO Position: P4 Physician - Primary Care Med Service: Active Provider Member Role: Primary Care Physician Address: Address: [address] [place] [address] Care Team Related Persons Name: PER PATIENT, NONE Care Team Personnel Name: SRIDHAR MONTERO DO Position: P4 Physician - Primary Care Member Role: Primary Care Physician Address: Address: [address] [place] [address] Care Team Related Persons Name: PER PATIENT, NONE Care Team Personnel Name: SRIDHAR MONTERO DO Position: P4 Physician - Primary Care Med Service: Active Provider Member Role: Primary Care Physician Address: Address: [address] [place] [address] Care Team Related Persons Name: PER PATIENT, NONE Care Team Personnel Name: SRIDHAR MONTERO DO Position: P4 Physician - Primary Care Member Role: Primary Care Physician Address: Address: [address] [place] [address] Care Team Related Persons Name: PER PATIENT, NONE Care Team Personnel Name: SRIDHAR MONTERO DO Position: P4 Physician - Primary Care Member Role: Primary Care Physician Address: Address: [address] [place] [address] Care Team Related Persons Name: PER PATIENT, [...] BE BASED ON THE PRIMARY CLINICAL RECORDS. [facility] [employer] [facility]. provides no warranty or guarantee of the accuracy or completeness of information in this document.
[2025-04-20 15:06] LABS: Troponin T High Sens 2 HR < 6 ng/L (<=14)
[2025-04-20 17:10] LABS: Troponin T High Sens 4 HR 7 ng/L (<=14)
[2025-04-20] MEDS: HYDROcodone Bitartrate/Apap 5/325 Tablet PO (18:11)
[2025-04-20] MEDS: 0.9% Normal Saline (1000mL) 1,000 ML 100 ML IV (18:12)
[2025-04-21] VITALS (7 sets, daily range): BP systolic 121–141; BP diastolic 64–76; PULSE 59–61; RESP 14–18; TEMP 36.4–36.9; O2SAT 95–98; BMI 24.2; BMI 24.4
[2025-04-21] MEDS: 0.9% Normal Saline (1000mL) 1,000 ML 100 ML IV (04:06)
[2025-04-21 06:38] LABS: Hematocrit 31.3 % (37-47); Hemoglobin 10.3 g/dL (12.0-15.0); Immature Granulocytes Count 0.020 X10^3/uL (0.0-0.0); Mean Corp Hgb Conc 32.9 g/dL (32-36); Mean Corpuscular Volume 89.7 fL (81-99); Mean Platelet Vol. 11.3 fl (6.2-12.0); NRBC Flagged by Analyzer 0 % (0-5); Platelet Count 181 K/mm3 (150-450); RBC Distribution Width CV 14.4 % (11.6-14.6); RBC Distribution Width SD 46.5 fl (35.1-43.9); Red Blood Count 3.49 M/mm3 (4.2-5.4); White Blood Count 6.6 K/mm3 (4.4-11.0)
[2025-04-21 07:16] LABS: Anion Gap 8 (7-18); BUN 12 mg/dL (4-19); BUN/Creat Ratio 16.4 RATIO (10-20); Calcium,Total 8.9 mg/dL (7.6-11.0); Carbon Dioxide 25.8 mmol/L (20.0-29.0); Chloride 107 mmol/L (96-106); Cholesterol 189 mg/dL (<=200); Estimated Creatinine Clearance 66.36 ml/min (50-250); Glucose 84 mg/dL (70-99); Low Density Lipoprotein Calc. 105 mg/dL; Magnesium 1.9 mg/dL (1.5-2.2); Potassium 4.0 mmol/L (3.5-5.1); Triglycerides 76 mg/dL; Very Low Density Lipoprotein 15 mg/dL (5-40); cholesterol:hdl ratio screen 2.71
--- NOTE | 2025-04-21 08:10 | NEURO.CONS ---
Assessment and Plan: Neuro Assessment/Plan BELLA MONROE is a 69 F with a past medical history of atrial fibrillation with 3 previous ablations currently in sinus rhythm, hypothyroidism and GERD, being evaluated by Teleneurology for vertigo. History consistent with possible BPPV vs complex migraine causing vertigo. Exam without clear nystagmus or focal symptoms concerning for stroke. Ddx includes atypical migraine, BPPV, vs medication induced dizziness. Plan: - migraine cocktail to see if related to migraine: toradol 30mg IV, benadryl 25mg PO, compazine 10mg PO - PT for vestibular therapy - if vertigo does not improve with migraine cocktail, may need to consider changing dosage of flecainide. I personally attended this patient and spent a total time of 45minutes evaluating this patient including clinical assessment, review of chart, medical history imaging, and determining appropriate treatment and workup. HPI Consult Data Date of Consult: 04/21/25 HPI Narrative HPI Narrative: BELLA MONROE, is a 69 F with past medical history is known for paroxysmal atrial fibrillation with 3 previous ablations currently in sinus rhythm, hypothyroidism and GERD who presented to the emergency department with dizziness. Per patient she was in her usual state of health prior to going to bed woke up on the morning of her presentation with loss of balance. Patient felt she was leaning into the wall on 1 side. She later developed nausea and vomited a couple of times. She did admit to subjective fever but denied any chills. Presented to the emergency department stroke alert was called underwent initial imaging studies with CT and CTA of the head and neck which came back unremarkable. Subsequently admitted for stroke workup Neurologic History Confirmed above history, room was not spinning yet. She has had intermittent room spinning. Nothing like this happened before, continues to have the symptoms. Symptoms are less evere but do happen occasionally. Movement in generall will exacerbate the dizziness. She is afraid to fall. She has had a BURRELL all day, normally does not have headaches. She had mild BURRELL yesterday as well. BURRELL located on the front of the head and throbbing, behind the L eye, but now is more dull. Pt was started on flecainide on Mar 26. She has been on it before but not sure why she was taken off it but not clearly because she was dizzy. No blood thinners at home. Used to take eliquis (August-Feb) then was told she did not have to taken it anywhere. No numbness or tingling, no weakness focally, no slurred speech, no diplopia. Has some word searching and felt foggy yesterday. Dizziness if feeling of being on a boat. She used to have migraines that improved after starting metoprolol many years back. Exam -? General: Laying comfortably in bed; in no acute distress. -? HENT: Normal oropharynx and mucosa. Normal external appearance of ears and nose. Exophthalmos. -? Neck: Supple, no pain or tenderness -? CV:? No peripheral edema. -? Pulmonary:? Normal respiratory effort. -? Ext: No cyanosis, edema, or deformity -? Skin: No rash. Normal palpation of skin.? -? Musculoskeletal: full range of motion; no joint tenderness. Normal digits and nails by inspection. No clubbing. -? NEURO: -? Mental Status: The patient was alert and oriented to time, place, and person. Normal recent/remote memory, concentration, and general fund of knowledge. -? Language: speech is clear.? Naming, repetition, fluency, and comprehension intact. -? Cranial Nerves: PERRL 5mm/brisk. EOMI, visual kwok full, no facial asymmetry, facial sensation intact, hearing intact, tongue midline, no evidence of atrophy or fibrillations. -? Motor: normal bulk, tone, and strength throughout. No pronator drift or satelliting. Upper and lower extremities equal bilaterally. -? Detailed strength exam as performed by the nurse/MADAN and witnessed by the physician: R L SA 5 5 EE EF WE WF Felt Hanger 5 5 HF 4 4 KE 0 KF 0 DF 5 5 PF 5 5 -? Tone: is normal and bulk is normal -? Sensation- LT diminished on the LLE which is baseline -? Coordination: No dysmetria on [id number] b/l, HTS not tested -? Gait- Gait initiation was normal. Narrow base with good heel strike and stride length was observed during ambulation. Turns were in stride. Patient was able to walk normally in tandem. Romberg was normal. [facility] Medical History Osteoarthritis of right knee Cardiology follow-up encounter Wears glasses Loose, teeth Alcohol use Thyroid disease Arthritis Gastric reflux Former smoker History of atrial fibrillation Hx of fracture of leg Home Medications ?Medication ?Instructions ?Recorded ?Last Taken ?Type ergocalciferol (vitamin D2) 1,250 1,250 mcg PO QMONTH supplement 06/11/21 03/26/25 History mcg (50,000 unit) capsule (Vitamin D2) liothyronine 5 mcg tablet (Cytomel) 5 mcg PO DAILY thyroid 06/11/21 04/19/25 History metoprolol tartrate 25 mg tablet 25 mg PO BID heart 06/11/21 04/19/25 History pantoprazole 40 mg tablet,delayed 40 mg PO DAILY reflux 06/11/21 04/19/25 History release vit C 250 mg-vit E 90 mg-zinc 40 1 tab PO BID eye vitamin 06/11/21 04/19/25 History mg-copper 1 [id number] capsule (PreserVision AREDS-2) acetaminophen 500 mg tablet 1,000 mg PO PRN pain 04/20/25 Unknown History calcitriol 0.25 mcg capsule 0.25 mcg PO DAILY 04/20/25 04/18/25 History flecainide 150 mg tablet 75 mg PO BID 04/20/25 04/19/25 History hydrocodone-acetaminophen 5-325mg 1 tab PO BID PRN pain 04/20/25 Unknown History 5mg-325mg levothyroxine 100 mcg tablet 100 mcg PO DAILY 04/20/25 04/19/25 History Allergy/AdvReac Type Severity Reaction Status Date / Time codeine Allergy Other Verified 04/20/25 12:00 nickel Allergy Other Verified 04/20/25 12:00 sodium hypochlorite solution Allergy Rash Verified 04/20/25 12:00 (From [employer]) adhesive tape AdvReac Rash Verified 04/20/25 12:00 Family History no significant family his Surgical History History of total knee arthroplasty Hx of prior ablation treatment History of back surgery Hx of knee surgery Social History Smoking Status: Former smoker Vital Signs Vital Signs Vital Signs: 04/20/25 11:51 04/20/25 12:05 04/20/25 12:34 Temperature 96.4 F L Temperature Source Oral Pulse Rate 72 64 Pulse Strength Respiratory Rate 16 Respiratory Effort Respiratory Depth Respiratory Pattern Blood Pressure 151/82 H 154/72 H Blood Pressure Mean 105 99 Blood Pressure Source Blood Pressure Position Blood Pressure Location Pulse Ox 99 Oxygen Delivery Method Room Air Room Air 04/20/25 12:35 04/20/25 13:05 04/20/25 13:26 Temperature 96.4 F L Temperature Source Pulse Rate 69 66 66 Pulse Strength Respiratory Rate 14 12 12 Respiratory Effort Respiratory Depth Respiratory Pattern Blood Pressure 148/64 H 143/77 H 143/77 H Blood Pressure Mean 92 99 99 Blood Pressure Source Blood Pressure Position Blood Pressure Location Pulse Ox 100 99 99 Oxygen Delivery Method 04/20/25 13:30 04/20/25 14:00 04/20/25 14:30 Temperature Temperature Source Pulse Rate 65 70 68 Pulse Strength Respiratory Rate 19 H 20 H Respiratory Effort Respiratory Depth Respiratory Pattern Blood Pressure 131/63 H 138/68 H 136/80 H Blood Pressure Mean 85 91 98 Blood Pressure Source Blood Pressure Position Blood Pressure Location Pulse Ox 99 97 100 Oxygen Delivery Method 04/20/25 15:10 04/20/25 17:14 04/20/25 18:00 Temperature 97.6 F L 97.6 F L Temperature Source Temporal Temporal Pulse Rate 68 62 Pulse Strength Respiratory Rate 18 18 Respiratory Effort Respiratory Depth Respiratory Pattern Blood Pressure 128/63 H 130/69 H Blood Pressure Mean 84 89 Blood Pressure Source Monitor Monitor Blood Pressure Position Semi-Fowlers Semi-Fowlers Blood Pressure Location Right Arm Right Arm Pulse Ox 97 98 98 Oxygen Delivery Method Room Air Room Air Room Air 04/20/25 21:25 04/20/25 21:25 04/20/25 22:00 Temperature 97.9 F Temperature Source Oral Pulse Rate 58 L Pulse Strength Normal (2+) Respiratory Rate 16 Respiratory Effort Normal Non-Labored Respiratory Depth Normal Respiratory Pattern Normal Blood Pressure 109/58 L Blood Pressure Mean 75 Blood Pressure Source Monitor Blood Pressure Position Semi-Fowlers Blood Pressure Location Right Arm Pulse Ox 97 Oxygen Delivery Method Room Air Room Air 04/20/25 22:06 04/20/25 22:39 04/21/25 03:00 Temperature 97.6 F L Temperature Source Oral Pulse Rate 55 L 55 L 60 Pulse Strength Respiratory Rate 16 Respiratory Effort Respiratory Depth Respiratory Pattern Blood Pressure 114/66 114/66 121/69 H Blood Pressure Mean 82 86 Blood Pressure Source Monitor Monitor Blood Pressure Position Semi-Fowlers Semi-Fowlers Blood Pressure Location Left Arm Right Arm Pulse Ox 97 Oxygen Delivery Method Room Air 04/21/25 03:00 04/21/25 08:03 04/21/25 08:09 Temperature 98.1 F Temperature Source Oral Pulse Rate 60 60 Pulse Strength Respiratory Rate 18 Respiratory Effort Respiratory Depth Respiratory Pattern Blood Pressure 129/64 H Blood Pressure Mean 85 Blood Pressure Source Monitor Blood Pressure Position Semi-Fowlers Blood Pressure Location Right Arm Pulse Ox 98 Oxygen Delivery Method Room Air Room Air Weight Weight: 70.8 kg Body Mass Index (BMI) 24.4 EEG Results Procedure Details EEG Procedure Details: BELLA MONROE is a 69 year old F with a past medical history of , who presents for evaluation of Electroencephalogram on DATE at TIME Lab / Micro Data 04/21/25 05:39 04/21/25 05:39 Labs: Laboratory Results - last 24 hr 04/20/25 11:56: POC Glucose 119 H 04/20/25 12:05: WBC 7.4, RBC 4.01 L, Hgb 11.8 L, Hct 36.2 L, MCV 90.3, MCH 29.4, MCHC 32.6, RDW Std Deviation 46.8 H, RDW Coeff of Juan Daniel 14.1, Plt Count 235, MPV 11.1, Immature Gran % (Auto) 0.400, Neut % (Auto) 65.3, Lymph % (Auto) 17.5 L, [place] % (Auto) 7.1, Eos % (Auto) 8.1 H, Baso % (Auto) 1.6 H, Absolute Neuts (auto) 4.8, Absolute Lymphs (auto) 1.30, Nucleated RBC % 0, PT 13.0, INR 1.0, APTT 25.1, Sodium 140, Potassium 3.8, Chloride 103, Carbon Dioxide 26.2, Anion Gap 11, BUN 15, Creatinine 0.92, Estim Creat Clear Calc 57.70, Est GFR (MDRD) Non-Af 68, BUN/Creatinine Ratio 16.2, Glucose 135 H, Hemoglobin A1c 5.4, Calcium 9.5, Troponin T High Sens < 6 04/20/25 14:08: Troponin T Hi Sens 2 Hr < 6 04/20/25 16:33: Troponin T Hi Sens 4Hr 7 04/21/25 05:39: WBC 6.6, RBC 3.49 L, Hgb 10.3 L, Hct 31.3 L, MCV 89.7, MCH 29.5, MCHC 32.9, RDW Std Deviation 46.5 H, RDW Coeff of Juan Daniel 14.4, Plt Count 181, MPV 11.3, Immature Gran % (Auto) 0.300, Neut % (Auto) 62.6, Lymph % (Auto) 22.1, [place] % (Auto) 8.1, Eos % (Auto) 5.8 H, Baso % (Auto) 1.1 H, Absolute Neuts (auto) 4.1, Absolute Lymphs (auto) 1.45, Nucleated RBC % 0, Sodium 141, Potassium 4.0, Chloride 107 H, Carbon Dioxide 25.8, Anion Gap 8, BUN 12, Creatinine 0.75, Estim Creat Clear Calc 66.36, Est GFR (MDRD) Non-Af 87, BUN/Creatinine Ratio 16.4, Glucose 84, Calcium 8.9, Phosphorus 3.2, Magnesium 1.9, Triglycerides 76, Cholesterol 189, LDL Cholesterol, Calc 105, VLDL Cholesterol 15, HDL Cholesterol 70, Cholesterol/HDL Ratio 2.71, TSH 0.673 Micro: Microbiology 04/20/25 18:45 Mucosa - Nasopharyngeal Respiratory Panel (PCR) - Final 04/20/25 18:45 Mucosa - Nose SARS-CoV-2, Influenza & RSV (PCR) - Final Imaging Radiology Impression Brain CT 04/20/25 12:05 IMPRESSION: No CT evidence of acute intracranial hemorrhage, infarct, or significant mass effect. Communication notice: The the impression above was communicated by Dr. Alex Lopez by telephone to Dr. Justen Snider on 04/20/2025 at 12:27 pm with readback verification. Reading Location: [facility] Head/Neck CTA 04/20/25 12:05 IMPRESSION: No hemodynamically significant stenosis in the head and neck. No aneurysm. Reading Location: [facility] Brain MRI 04/20/25 13:38 IMPRESSION: No acute brain abnormalities. White matter changes which are nonspecific but most likely due to chronic small-vessel ischemia. Reading Location: [facility] Active Medications Active Medications Active Medications: Current Medications Generic Name Dose Route Start Last Admin Trade Name Freq PRN Reason Stop Dose Admin Acetaminophen 650 mg 04/21/25 05:57 04/21/25 06:19 Acetaminophen 325 Mg Tablet PO 650 mg Q6H PRN PRN Administration HEADACHE/FEVER (T>100F) Hydrocodone Bitart/Acetaminophen 1 tablet 04/20/25 16:50 04/20/25 18:11 Hydrocodone Bitartrate/Apap 5/325 Tablet PO 1 tablet BID PRN Administration pain Albuterol Sulfate 2.5 mg 04/20/25 15:03 Albuterol 2.5 Mg/3 Ml Vial.Neb. INHALATION Q2H PRN PRN SOB &/OR WHEEZING Enoxaparin Sodium 40 mg 04/21/25 10:00 04/21/25 08:09 Enoxaparin 40 Mg/0.4 Ml Syringe SC 40 mg DAILY DAPHNIE Administration Famotidine 20 mg 04/20/25 22:00 04/21/25 08:08 Famotidine 20 Mg Tablet PO 20 mg BID DAPHNIE Administration Flecainide Acetate 75 mg 04/20/25 22:00 04/21/25 08:08 Flecainide 150 Mg Tablet PO 75 mg BID DAPHNIE Administration Guaifenesin 20 ml 04/20/25 15:03 Guaifenesin 10 Ml Udc (200mg/10ml) PO Q4H PRN PRN COUGH Hydralazine HCl 5 mg 04/20/25 15:03 Hydralazine 20 Mg/Ml Vial IV 04/21/25 15:04 Q30M PRN maintain BP parameters with HR <60 Sodium Chloride 1,000 mls @ 100 mls/hr 04/20/25 15:03 04/21/25 04:06 IV 04/21/25 11:02 100 mls/hr .Q10H DAPHNIE Administration Sodium Chloride 250 mls @ 15 mls/hr 04/20/25 15:22 IV .[id number] PRN Saline Flush Sodium Chloride 250 mls @ 15 mls/hr 04/20/25 15:22 IV .[id number] PRN Additional IVPB Infusion Labetalol HCl 20 mg 04/20/25 12:05 Labetalol 20 Mg/4 Ml Vial IV 04/21/25 12:05 X1 PRN BLOOD PRESSURE Labetalol HCl 10 - 20 mg 04/20/25 15:03 Labetalol 20 Mg/4 Ml Vial IV 04/21/25 15:04 Q10M PRN PRN maintain BP parameters with HR >/=60 Levothyroxine Sodium 100 mcg 04/21/25 06:00 04/21/25 05:47 Levothyroxine 100 Mcg Tablet PO 100 mcg DAILY@0600 DAPHNIE Administration Liothyronine Sodium 5 mcg 04/21/25 06:00 04/21/25 05:47 Liothyronine 5 Mcg Tablet PO 5 mcg 0600 DAPHNIE Administration Melatonin 3 mg 04/20/25 15:03 Melatonin 3 Mg Tablet PO QHS PRN PRN INSOMNIA Metoprolol Tartrate 25 mg 04/20/25 22:00 04/21/25 08:09 Metoprolol Tartrate 25 Mg Tablet PO 25 mg BID DAPHNIE Administration Protocol Nitroglycerin 0.4 mg 04/20/25 15:03 Nitroglycerin (Inpatient Use) 0.4 Mg Tab.Subl SL Q5M PRN CARDIAC/CHEST PAIN Pantoprazole Sodium 40 mg 04/21/25 10:00 04/21/25 08:08 Pantoprazole Sodium 40 Mg Tablet PO 40 mg DAILY DAPHNIE Administration Senna/Docusate Sodium 2 tablet 04/20/25 15:03 Senna/Docusate Sodium 1 Tablet PO BID PRN PRN Constipation Sodium Chloride 10 - 40 ml 04/20/25 15:22 0.9% Saline Lock 10 Ml Syringe IV UD PRN SALINE FLUSH NIHSS NIHSS Nursing Documentation NIHSS Nursing Documentation: NIHSS: Ischemic Stroke/TIA Start: 04/20/25 15:03 Text: For PCU Patients: NIH and Neuro Check every 4 Status: Complete hours, PRN and with change in RN caregiver. Freq: [id number] Protocol: Activity Type Activity Date Activity User E-sign Co-sign Detail Recorded Client Recorded Date Recorded By Document 04/20/25 18:00 [email or web address] [id number] 04/20/25 18:21 JM8 04/20/25 18:00 NIH Stroke Scale [NIHSS] A score of 0 is normal or asymptomatic . Total possible score is 42. Inpatient: RN or Physician to activate a stroke alert for onset of new stroke symptoms or with NIHSS increase >/= 3 points. Following change in neurological status, NIHSS will be performed per physician order or more frequently PRN. -1a. Level of Consciousness 0 - Alert; keenly responsive -1b. LOC Questions 0 - Answers BOTH questions correctly -1c. LOC Commands 0 - Performs BOTH tasks correctly -2. Best Gaze 0 - Normal -3. Visual 0 - No visual loss -4. Facial Palsy 0 - Normal symmetrical movements -5a. Left Arm 0 - No drift; arm holds 90 ( or 45) degrees for full 10 seconds -5b. Right Arm 0 - No drift; arm holds 90 ( or 45) degrees for full 10 seconds -6a. Left Leg UN - Amputation or joint fusion, explain : -'UN' explanation Unable to move leg d/t surgical hx. -6b. Right Leg 0 - No drift; leg holds 30- degree position for full 5 seconds -7. Limb Ataxia UN - Amputation or joint fusion, explain -'UN' explanation Unable to move Left leg d/t surgical hx. -8. Sensory 0 - Normal; no sensory loss -9. Best Language 0 - No aphasia; normal -10. Dysarthria 0 - Normal -11. Extinction and Inattention 0 - No abnormality -Total 0 Query Text:A score of 0 is normal or asymptomatic. Total possible score is 42 . ED: Notify Physician for NIHSS increase by > / = 3 points. Inpatient: RN or Physician to activate a stroke alert for NIHSS increase of > / = 3 points. Coma Scale [Assess] -Eye Opening Spontaneous -Motor Obeys Commands -Verbal Oriented [Total] -Coma Scale Total 15
--- NOTE | 2025-04-21 09:56 | PCM.DC.SUM ---
Providers Date of Admission: 04/20/25 Primary Care Physician: Dr. Irvin Muller, DO Consultations 04/20/25 15:03 Consult: Tele-Neurology Routine Consulting Provider: [facility] Reason for Consult: Acute Ischemic Stroke/TIA EMERGENT Consult: No MD Notified: Yes Date Notified: 04/20/25 Time Notified: 16:00 Method of Notification: ED Physician Initiated Nursing Unit Staff Notify [facility] of Tele-Neurology Consult: Yes Reason For Visit: POSSIBLE CVA Diagnosis Discharge Diagnosis (1) Dizziness: Status: Acute Code(s): R42 - Dizziness and giddiness Plan Patient is a 69-year-old lady presented with sudden onset of dizziness with associated nausea and vomiting 1. Dizziness ? Patient has been admitted to monitored bed to undergo stroke workup. Ordered every 4 neurochecks 2D echo MRI of the brain as well as fasting lipid. Patient was started on statin therapy as well as antiplatelets consult placed to [facility] 2. Paroxysmal A-fib ? With previous ablation patient presented in sinus rhythm currently on flecainide as well as metoprolol placed on continuous study 3. Hypothyroidism ? Patient is on levothyroxine home dose continued 4. GERD ? Patient is on PPI 5. DVT prophylaxis ? Placed on PF Changsnox CODE STATUS; full code Time spent in the patient's overall evaluation,decision-making process, review of diagnostic data, adjustment of management, discussion with other providers, nursing nursing and ancillary staff involved in patient's care documentation, 55 minutes Medications at Discharge Home Medications ergocalciferol (vitamin D2) 1,250 mcg (50,000 unit) capsule (Vitamin D2) 1,250 mcg PO QMONTH supplement 06/11/21 liothyronine 5 mcg tablet (Cytomel) 5 mcg PO DAILY thyroid 06/11/21 metoprolol tartrate 25 mg tablet 25 mg PO BID heart 06/11/21 pantoprazole 40 mg tablet,delayed release 40 mg PO DAILY reflux 06/11/21 vit C 250 mg-vit E 90 mg-zinc 40 mg-copper 1 fc-ofzryy-[id number] capsule (PreserVision AREDS-2) 1 tab PO BID eye vitamin 06/11/21 acetaminophen 500 mg tablet 1,000 mg PO PRN pain 04/20/25 calcitriol 0.25 mcg capsule 0.25 mcg PO DAILY 04/20/25 flecainide 150 mg tablet 75 mg PO BID 04/20/25 hydrocodone-acetaminophen 5-325mg 5mg-325mg 1 tab PO BID PRN pain 04/20/25 levothyroxine 100 mcg tablet 100 mcg PO DAILY 04/20/25 Physical Exam Narrative GENERAL: cooperative HEENT: Atraumatic; normocephalic EYES; Anicteric, Normal Conjunctiva NECK; supple, normal thyroid, RESPIRATORY: Diminished to auscultation CARDIOVASCULAR: Regular S1 S2, GI: soft, normoactive bowel sounds, : No Renal angle tenderness; EXTREMITIES: No edema, no clubbing, MUSCULOSKELETAL: no muscle wasting NEURO: no lateralizing signs, no upper or lower extremity ataxia SKIN: No Rash PSYCH; Flat affect Weight / BMI Weight Weight: 70.8 kg Body Mass Index (BMI) 24.4 ABG / Lab / Microbiology Data 04/21/25 05:39 04/21/25 05:39 Laboratory: Laboratory Results - last 24 hr 04/20/25 11:56: POC Glucose 119 H 04/20/25 12:05: WBC 7.4, RBC 4.01 L, Hgb 11.8 L, Hct 36.2 L, MCV 90.3, MCH 29.4, MCHC 32.6, RDW Std Deviation 46.8 H, RDW Coeff of Juan Daniel 14.1, Plt Count 235, MPV 11.1, Immature Gran % (Auto) 0.400, Neut % (Auto) 65.3, Lymph % (Auto) 17.5 L, [place] % (Auto) 7.1, Eos % (Auto) 8.1 H, Baso % (Auto) 1.6 H, Absolute Neuts (auto) 4.8, Absolute Lymphs (auto) 1.30, Nucleated RBC % 0, PT 13.0, INR 1.0, APTT 25.1, Sodium 140, Potassium 3.8, Chloride 103, Carbon Dioxide 26.2, Anion Gap 11, BUN 15, Creatinine 0.92, Estim Creat Clear Calc 57.70, Est GFR (MDRD) Non-Af 68, BUN/Creatinine Ratio 16.2, Glucose 135 H, Hemoglobin A1c 5.4, Calcium 9.5, Troponin T High Sens < 6 04/20/25 14:08: Troponin T Hi Sens 2 Hr < 6 04/20/25 16:33: Troponin T Hi Sens 4Hr 7 12/27/25 05:39: WBC 6.6, RBC 3.49 L, Hgb 10.3 L, Hct 31.3 L, MCV 89.7, MCH 29.5, MCHC 32.9, RDW Std Deviation 46.5 H, RDW Coeff of Juan Daniel 14.4, Plt Count 181, MPV 11.3, Immature Gran % (Auto) 0.300, Neut % (Auto) 62.6, Lymph % (Auto) 22.1, [place] % (Auto) 8.1, Eos % (Auto) 5.8 H, Baso % (Auto) 1.1 H, Absolute Neuts (auto) 4.1, Absolute Lymphs (auto) 1.45, Nucleated RBC % 0, Sodium 141, Potassium 4.0, Chloride 107 H, Carbon Dioxide 25.8, Anion Gap 8, BUN 12, Creatinine 0.75, Estim Creat Clear Calc 66.36, Est GFR (MDRD) Non-Af 87, BUN/Creatinine Ratio 16.4, Glucose 84, Calcium 8.9, Phosphorus 3.2, Magnesium 1.9, Triglycerides 76, Cholesterol 189, LDL Cholesterol, Calc 105, VLDL Cholesterol 15, HDL Cholesterol 70, Cholesterol/HDL Ratio 2.71, TSH 0.673 Microbiology: Microbiology 04/20/25 18:45 Mucosa - Nasopharyngeal Respiratory Panel (PCR) - Final 04/20/25 18:45 Mucosa - Nose SARS-CoV-2, Influenza & RSV (PCR) - Final Radiography Diagnostic Testing: Radiology Impression Brain CT 04/20/25 12:05 IMPRESSION: No CT evidence of acute intracranial hemorrhage, infarct, or significant mass effect. Communication notice: The the impression above was communicated by Dr. Alex Lopez by telephone to Dr. Justen Snider on 04/20/2025 at 12:27 pm with readback verification. Reading Location: [id number] Head/Neck CTA 04/20/25 12:05 IMPRESSION: No hemodynamically significant stenosis in the head and neck. No aneurysm. Reading Location: [id number] Brain MRI 04/20/25 13:38 IMPRESSION: No acute brain abnormalities. White matter changes which are nonspecific but most likely due to chronic small-vessel ischemia. Reading Location: [facility] Echocardiogram 04/20/25 13:38 Interpretation Summary The estimated ejection fraction is 65???70 %. Normal LV size. Normal left ventricular thickness. Normal diastology for age. Mild (1+) mitral valve insufficiency. Mild (1+) tricuspid valve insufficiency. Mild (1+) pulmonic valve insufficiency. Intra-atrial septum mildly thin with no significant mobility appreciated. Possible color Doppler signal indicating a PFO/ASD. IVC mildly dilated with normal respiratory collapse. Right atrial pressure estimated at 5-10 mmHg. If clinically indicated recommend completion of a bubble study to help further evaluate for a PFO/ASD. If the bubble study is inadequate for visualization also can consider a transesophageal echocardiogram which will help to further assess for a possible PFO/ASD. Ordering Physician: Alexi Ruiz Referring Physician: Irvin Muller Performed By: Emma Katz RDCS Discharge Plan Admission Admit Date/Time: 04/20/25 13:32 Attending Provider: Alexi Ruiz Primary Care Provider: Irvin Muller Consulting Providers: Ravin Brewer; Tianna Levi; Porsche Naidu; Radha García; Dahiana Morrow; David Diaz; Shana Pedersen; Reese Iniguez; Cesar Ram; Ye Daley; Alyssa Howell; Renetta Kennedy; Ilya Mars; Mary Beth Romero; Asia Hoff; Leia Valdivia; Jozef Chung; Demetrice Tillman; Ian Ferreira; Lola Reyes; Malena Dockery Discharge Orders/Prescriptions Prescriptions: No Action liothyronine [Cytomel] 5 mcg Tablet 5 mcg PO DAILY pantoprazole 40 mg Tablet,Delayed Release (Dr/Ec) 40 mg PO DAILY ergocalciferol (vitamin D2) [Vitamin D2] 1,250 mcg (50,000 unit) Capsule 1,250 mcg PO QMONTH metoprolol tartrate 25 mg Tablet 25 mg PO BID PreserVision AREDS-2 250-90-40-1 mg Capsule 1 tab PO BID flecainide 150 mg tablet 75 mg PO BID hydrocodone-acetaminophen 5-325 mg tablet 1 tab PO BID PRN (Reason: pain) levothyroxine 100 mcg tablet 100 mcg PO DAILY calcitriol 0.25 mcg capsule 0.25 mcg PO DAILY Patient Comments: SUN,MON,WED,FRI acetaminophen 500 mg Tablet 1,000 mg PO PRN Rx Instructions: Do not take more than 3000 mg Tylenol in a 24-hour period. Referrals / Follow Up: Irvin Muller DO [Primary Care Provider, Family Practice]
--- NOTE | 2025-04-21 10:00 | EKG12_ITS ---
Test Reason : Blood Pressure : */* mmHG Vent. Rate : 59 BPM Atrial Rate : 59 BPM P-R Int : 184 ms QRS Dur : 102 ms QT Int : 430 ms P-R-T Axes : 63 -4 15 degrees QTcB Int : 425 ms Sinus bradycardia Otherwise normal ECG Confirmed by Alexi Stewart ([id number]), food expeditor FRANCISCO CURRIE ([id number]) on 04/27/2025 7:42:06 AM Referred By: Confirmed By: Alexi Stewart
--- NOTE | 2025-04-21 11:49 | CASEMGMT ---
SHAWN SCHAFER Assessment: Face to Face with pt for initial transition planning/care coordination assessment. SHAWN SCHAFER introduced self and role at [facility], pt voices understanding and consents to assessment. Pt is A&O x4 and answers all questions appropriately at this time. Pt resting in bed in no distress. Care providers, pharmacy, and demographics verified/updated. Strata: 1 Admitting Dx: Possible CVA PCP: Yohana Specialists: Nicolas Cash; [facility]. Preferred Pharmacy: [facility] Insurance: [employer] Prescription Benefit: yes LNOK: Son, Eric; Friend, Tamara. Living Arrangements: Pt lives alone in a 2 story home with 2 steps to enter in. ADLs: Pt reports I at baseline. Transportation: Pt drives self and denies concerns with transportation. DME: [facility] HHC/SNF: Denies Hx of Pt states no concerns with going home at time of dc. Pt states no further concerns/needs. SHAWN SCHAFER discussed OP therapy, pt denies. SHAWN SCHAFER discussed follow up with PCP if she changes her mind. CM to follow. Advised pt to ask CM if any further question/concerns/needs arise, voices understanding. Pt Goal: Home Plan: Home, Follow therapy for safe DC. Christian ESCOBAR CM
--- NOTE | 2025-04-21 12:24 | PN.HOSP_ITS ---
Reason for Visit Chief Complaint: Dizziness Subjective Subjective Patient is a 69-year-old lady who was admitted with dizziness posterior circulation CVA was ruled out with negative MRI. Patient was seen in consultation by teleneuro and assessment of complex migraine made treated with Compazine Benadryl as well as Toradol in addition to vestibular therapy by PT Objective Data Objective Data Vital Signs: Vital Signs Temp Pulse Resp BP Pulse Ox O2 Del Method 98.1 F 60 18 129/64 H 98 Room Air 04/21/25 08:03 04/21/25 08:09 04/21/25 08:03 04/21/25 08:03 04/21/25 08:03 04/21/25 08:03 Oxygen Delivery Method Room Air Weight: 70.8 kg Body Mass Index (BMI) 24.4 Intake & Output: Intake and Output for Last 24 Hours 04/19/25 04/20/25 04/21/25 23:59 23:59 23:59 Intake Total 240 / 240 1390 / 1390 Balance 240 / 240 1390 / 1390 Lab / Micro Data 04/21/25 05:39 04/21/25 05:39 Labs: Laboratory Results - last 24 hr 04/20/25 12:05: WBC 7.4, RBC 4.01 L, Hgb 11.8 L, Hct 36.2 L, MCV 90.3, MCH 29.4, MCHC 32.6, RDW Std Deviation 46.8 H, RDW Coeff of Juan Daniel 14.1, Plt Count 235, MPV 11.1, Immature Gran % (Auto) 0.400, Neut % (Auto) 65.3, Lymph % (Auto) 17.5 L, [place] % (Auto) 7.1, Eos % (Auto) 8.1 H, Baso % (Auto) 1.6 H, Absolute Neuts (auto) 4.8, Absolute Lymphs (auto) 1.30, Nucleated RBC % 0, PT 13.0, INR 1.0, APTT 25.1, Sodium 140, Potassium 3.8, Chloride 103, Carbon Dioxide 26.2, Anion Gap 11, BUN 15, Creatinine 0.92, Estim Creat Clear Calc 57.70, Est GFR (MDRD) Non-Af 68, BUN/Creatinine Ratio 16.2, Glucose 135 H, Hemoglobin A1c 5.4, Calcium 9.5, Troponin T High Sens < 6 04/20/25 14:08: Troponin T Hi Sens 2 Hr < 6 04/20/25 16:33: Troponin T Hi Sens 4Hr 7 04/21/25 05:39: WBC 6.6, RBC 3.49 L, Hgb 10.3 L, Hct 31.3 L, MCV 89.7, MCH 29.5, MCHC 32.9, RDW Std Deviation 46.5 H, RDW Coeff of Juan Daniel 14.4, Plt Count 181, MPV 11.3, Immature Gran % (Auto) 0.300, Neut % (Auto) 62.6, Lymph % (Auto) 22.1, [place] % (Auto) 8.1, Eos % (Auto) 5.8 H, Baso % (Auto) 1.1 H, Absolute Neuts (auto) 4.1, Absolute Lymphs (auto) 1.45, Nucleated RBC % 0, Sodium 141, Potassium 4.0, Chloride 107 H, Carbon Dioxide 25.8, Anion Gap 8, BUN 12, Creatinine 0.75, Estim Creat Clear Calc 66.36, Est GFR (MDRD) Non-Af 87, BUN/Creatinine Ratio 16.4, Glucose 84, Calcium 8.9, Phosphorus 3.2, Magnesium 1.9, Triglycerides 76, Cholesterol 189, LDL Cholesterol, Calc 105, VLDL Cholesterol 15, HDL Cholesterol 70, Cholesterol/HDL Ratio 2.71, TSH 0.673 Micro: Microbiology 04/20/25 18:45 Mucosa - Nasopharyngeal Respiratory Panel (PCR) - Final 04/20/25 18:45 Mucosa - Nose SARS-CoV-2, Influenza & RSV (PCR) - Final Radiography Diagnostic Testing: Radiology Impression Brain CT 04/20/25 12:05 IMPRESSION: No CT evidence of acute intracranial hemorrhage, infarct, or significant mass effect. Communication notice: The the impression above was communicated by Dr. Alex Lopez by telephone to Dr. Justen Snider on 04/20/2025 at 12:27 pm with readback verification. Reading Location: [facility] Head/Neck CTA 04/20/25 12:05 IMPRESSION: No hemodynamically significant stenosis in the head and neck. No aneurysm. Reading Location: [id number] Brain MRI 04/20/25 13:38 IMPRESSION: No acute brain abnormalities. White matter changes which are nonspecific but most likely due to chronic small- vessel ischemia. Reading Location: [id number] Echocardiogram 04/20/25 13:38 Interpretation Summary The estimated ejection fraction is 65???70 %. Normal LV size. Normal left ventricular thickness. Normal diastology for age. Mild (1+) mitral valve insufficiency. Mild (1+) tricuspid valve insufficiency. Mild (1+) pulmonic valve insufficiency. Intra-atrial septum mildly thin with no significant mobility appreciated. Possible color Doppler signal indicating a PFO/ASD. IVC mildly dilated with normal respiratory collapse. Right atrial pressure estimated at 5-10 mmHg. If clinically indicated recommend completion of a bubble study to help further evaluate for a PFO/ASD. If the bubble study is inadequate for visualization also can consider a transesophageal echocardiogram which will help to further assess for a possible PFO/ASD. Ordering Physician: Alexi Ruiz Referring Physician: Irvin Muller Performed By: Emma Katz RDCS Physical Exam Narrative GENERAL: cooperative HEENT: Atraumatic; normocephalic EYES; Anicteric, Normal Conjunctiva NECK; supple, normal thyroid, RESPIRATORY: Diminished to auscultation CARDIOVASCULAR: Regular S1 S2, GI: soft, normoactive bowel sounds, : No Renal angle tenderness; EXTREMITIES: No edema, no clubbing, MUSCULOSKELETAL: no muscle wasting NEURO: no lateralizing signs, no upper or lower extremity ataxia SKIN: No Rash PSYCH; Flat affect Assessment & Plan Assessment/Plan (1) Dizziness: PLAN: Plan Patient is a 69-year-old lady presented with sudden onset of dizziness with associated nausea and vomiting 1. Dizziness ? Patient has been admitted to monitored bed to undergo stroke workup. Ordered every 4 neurochecks 2D echo MRI of the brain as well as fasting lipid. Patient was started on statin therapy as well as antiplatelets consult placed to [facility] teleneuro - 04/21/2025; Posterior circulation CVA was ruled out with negative MRI. Patient was seen in consultation by teleneuro and assessment of complex migraine made treated with Compazine Benadryl as well as Toradol in addition to vestibular therapy by PT. Dr. Morrow with teleneuro recommended obtaining cardiology consultation the patient symptoms did not improve with above cocktail to address flecainide (known to have dizziness as a common side effect) 2. Paroxysmal A-fib ? With previous ablation patient presented in sinus rhythm currently on flecainide as well as metoprolol placed on continuous telemetry 3. Hypothyroidism ? Patient is on levothyroxine home dose continued 4. GERD ? Patient is on PPI 5. Anemia ? Secondary to chronic disorder monitoring H&H and transfuse if patient becomes symptomatic or hemoglobin falls below 7 6. DVT prophylaxis ? Placed on Lovenox CODE STATUS; full code Time spent in the patient's overall evaluation,decision-making process, review of diagnostic data, adjustment of management, discussion with other providers, nursing nursing and ancillary staff involved in patient's care documentation, 36 minutes Charges/Coding Visit Charges Inpatient E&M: 48929 Subs Hosp L2 NIHSS NIHSS Nursing Documentation NIHSS Nursing Documentation: NIHSS: Ischemic Stroke/TIA Start: 04/20/25 15:03 Text: For PCU Patients: NIH and Neuro Check every 4 Status: Complete hours, PRN and with change in RN caregiver. Freq: [id number] Protocol: Activity Type Activity Date Activity User E-sign Co-sign Detail Recorded Client Recorded Date Recorded By Document 04/20/25 18:00 [id number] 04/20/25 18:21 JM8 04/20/25 18:00 NIH Stroke Scale [NIHSS] A score of 0 is normal or asymptomatic . Total possible score is 42. Inpatient: RN or Physician to activate a stroke alert for onset of new stroke symptoms or with NIHSS increase >/= 3 points. Following change in neurological status, NIHSS will be performed per physician order or more frequently PRN. -1a. Level of Consciousness 0 - Alert; keenly responsive -1b. LOC Questions 0 - Answers BOTH questions correctly -1c. LOC Commands 0 - Performs BOTH tasks correctly -2. Best Gaze 0 - Normal -3. Visual 0 - No visual loss -4. Facial Palsy 0 - Normal symmetrical movements -5a. Left Arm 0 - No drift; arm holds 90 ( or 45) degrees for full 10 seconds -5b. Right Arm 0 - No drift; arm holds 90 ( or 45) degrees for full 10 seconds -6a. Left Leg UN - Amputation or joint fusion, explain : -'UN' explanation Unable to move leg d/t surgical hx. -6b. Right Leg 0 - No drift; leg holds 30- degree position for full 5 seconds -7. Limb Ataxia UN - Amputation or joint fusion, explain -'UN' explanation Unable to move Left leg d/t surgical hx. -8. Sensory 0 - Normal; no sensory loss -9. Best Language 0 - No aphasia; normal -10. Dysarthria 0 - Normal -11. Extinction and Inattention 0 - No abnormality -Total 0 Query Text:A score of 0 is normal or asymptomatic. Total possible score is 42 . ED: Notify Physician for NIHSS increase by > / = 3 points. Inpatient: RN or Physician to activate a stroke alert for NIHSS increase of > / = 3 points. Coma Scale [Assess] -Eye Opening Spontaneous -Motor Obeys Commands -Verbal Oriented [Total] -Coma Scale Total 15
[2025-04-21] MEDS: Ketorolac 30 MG/ML Syringe IV (12:58)
--- NOTE | 2025-04-21 13:11 | CASEMGMT ---
Social Work PHQ-9 not completed as pt did not have a stroke. JUANJO Hagan
[2025-04-21] MEDS: 0.9% Saline Lock 10 ML Syringe IV (20:21)
[2025-04-22 02:45] VITALS: BP 131/63; PULSE 56; RESP 12; TEMP 36.7; O2SAT 96
[2025-04-22 05:32] VITALS: BMI 24.7
[2025-04-22 05:43] LABS: Hematocrit 31.8 % (37-47); Hemoglobin 10.3 g/dL (12.0-15.0); Immature Granulocytes Count 0.020 X10^3/uL (0.0-0.0); Mean Corp Hgb Conc 32.4 g/dL (32-36); Mean Corpuscular Volume 90.3 fL (81-99); Mean Platelet Vol. 11.7 fl (6.2-12.0); NRBC Flagged by Analyzer 0 % (0-5); Platelet Count 173 K/mm3 (150-450); RBC Distribution Width CV 14.2 % (11.6-14.6); RBC Distribution Width SD 47.4 fl (35.1-43.9); Red Blood Count 3.52 M/mm3 (4.2-5.4); White Blood Count 6.4 K/mm3 (4.4-11.0)
[2025-04-22 06:20] VITALS: BP 139/71; PULSE 54; RESP 16; TEMP 36.7; O2SAT 98
[2025-04-22 06:49] LABS: Anion Gap 8 (7-18); BUN 14 mg/dL (4-19); BUN/Creat Ratio 15.9 RATIO (10-20); Calcium,Total 8.8 mg/dL (7.6-11.0); Carbon Dioxide 25.6 mmol/L (20.0-29.0); Chloride 106 mmol/L (96-106); Estimated Creatinine Clearance 59.65 ml/min (50-250); Glucose 89 mg/dL (70-99); Potassium 4.0 mmol/L (3.5-5.1)
[2025-04-22 08:13] VITALS: BMI 24.7
[2025-04-22 08:43] VITALS: BP 136/68; PULSE 60; RESP 18; TEMP 36.7; O2SAT 97
[2025-04-22 08:54] VITALS: PULSE 60
[2025-04-22] MEDS: Senna/Docusate Sodium 1 Tablet 2 TABLET PO (08:54)
--- NOTE | 2025-04-22 13:15 | DCINST_ITS ---
Discharge Instructions DC O2, CPAP, BIPAP needs Home O2 Discharge instructions: No Dressing / Incision Discharge Activity: Return to Normal Activity Dressing / Incision Call your doctor if you observe: Fever of 101 or Higher, Shortness of breath, Dizziness, Swelling in the ankles and Chest pain Follow Up Care Test Results: Test results from this visit will be discussed in further detail at your follow- up appointment, if applicable. Discharge Plan Admission Admit Date/Time: 04/20/25 13:32 Primary Reason for Your Visit: dizziness Attending Provider: Alison Selby Primary Care Provider: Irvin Muller Consulting Providers: Ravin Brewer; Tianna Levi; Porsche Naidu; Radha García; Dahiana Morrow; David Diaz; Shana Pedersen; Reese Iniguez; Cesar Ram; Ye Daley; Alyssa Howell; Renetta Kennedy; Ilya Mars; Mary Beth Romero; Asia Hoff; Leia Valdivia; Jozef Chung; Demetrice Tillman; Ian Ferreira; Lola Reyes; Malena Dockery; Alexi Ruiz Instructions Patient Instructions: ED FALL-from [id number] Additional Instructions / Restrictions: follow up with your plastic hospital products assembler within 1-2 weeks for discussion about meds for afib Discharge Orders/Prescriptions Prescriptions: Continued liothyronine [Cytomel] 5 mcg Tablet 5 mcg PO DAILY pantoprazole 40 mg Tablet,Delayed Release (Dr/Ec) 40 mg PO DAILY ergocalciferol (vitamin D2) [Vitamin D2] 1,250 mcg (50,000 unit) Capsule 1,250 mcg PO QMONTH metoprolol tartrate 25 mg Tablet 25 mg PO BID PreserVision AREDS-2 250-90-40-1 mg Capsule 1 tab PO BID hydrocodone-acetaminophen 5-325 mg tablet 1 tab PO BID PRN (Reason: pain) levothyroxine 100 mcg tablet 100 mcg PO DAILY calcitriol 0.25 mcg capsule 0.25 mcg PO DAILY Patient Comments: SUN,MON,WED,FRI acetaminophen 500 mg Tablet 1,000 mg PO PRN Rx Instructions: Do not take more than 3000 mg Tylenol in a 24-hour period. Discontinued flecainide 150 mg tablet 75 mg PO BID Referrals / Follow Up: Irvin Muller DO [Primary Care Provider, Family Practice] - Within 1 Week Disposition Disposition (needs filled in before D/C Order can be placed): Home, Self Care
--- NOTE | 2025-04-22 13:17 | DS.PCM_ITS ---
Providers Date of Admission: 04/20/25 Date of Discharge: 04/22/25 Primary Care Physician: Dr. Irvin Muller, Consultations 04/20/25 15:03 Consult: Tele-Neurology Routine Consulting Provider: [facility] Reason for Consult: Acute Ischemic Stroke/TIA EMERGENT Consult: No MD Notified: Yes Date Notified: 04/20/25 Time Notified: 16:00 Method of Notification: ED Physician Initiated Nursing Unit Staff Notify [facility] of Tele-Neurology Consult: Yes Reason For Visit: POSSIBLE CVA Diagnosis Discharge Diagnosis (1) Dizziness: Status: Acute Code(s): R42 - Dizziness and giddiness Medications at Discharge Home Medications ergocalciferol (vitamin D2) 1,250 mcg (50,000 unit) capsule (Vitamin D2) 1,250 mcg PO QMONTH supplement 06/11/21 liothyronine 5 mcg tablet (Cytomel) 5 mcg PO DAILY thyroid 06/11/21 metoprolol tartrate 25 mg tablet 25 mg PO BID heart 06/11/21 pantoprazole 40 mg tablet,delayed release 40 mg PO DAILY reflux 06/11/21 vit C 250 mg-vit E 90 mg-zinc 40 mg-copper 1 [id number] capsule (PreserVision AREDS-2) 1 tab PO BID eye vitamin 06/11/21 acetaminophen 500 mg tablet 1,000 mg PO PRN pain 04/20/25 calcitriol 0.25 mcg capsule 0.25 mcg PO DAILY 04/20/25 hydrocodone-acetaminophen 5-325mg 5mg-325mg 1 tab PO BID PRN pain 04/20/25 levothyroxine 100 mcg tablet 100 mcg PO DAILY 04/20/25 Hospital Course Operations None Procedures 2-D Echocardiogram Summary of Care Provided Minutes Spent on Discharge: 45 Hospital Course: Patient is a 69-year-old female with past medical history as outlined was admitted through the ED on 04/20/2025 with complaint of dizziness. She says she woke up on the morning of admission and had loss of balance. She felt she was leaning into the wall on 1 side. She had rested nausea and vomiting. Review of systems otherwise negative. She had a history of A-fib for which she had had 3 previous ablations. Stroke alert was called when she came to the ED. CT of the brain showed no acute intracranial pathology. CT of the head and neck showed no hemodynamically significant stenosis. She was admitted for dizziness to rule out a posterior circulation stroke. She had MRI of the brain which did not show any evidence of a stroke. 2D echo done showed EF of 65 to 70% with normal diastolic for age and possible color Doppler signal indicating a PFO/ASD. Neurology reviewed patient did not think that there was any neurologic etiology for the dizziness and thought that maybe her flecainide was the cause of the dizziness. Neurology recommended that flecainide dose be adjusted. However patient stated that she had read up on flecainide herself and had read that it caused dizziness so she requested that it be stopped and refused to take it during her admission. I discussed this with the associate project manager on-call Dr. Barragan who stated that there was no contraindication to stopping the flecainide Mindel he was not sure that that was exactly what was causing the dizziness. Since patient was on metoprolol he said patient could continue the metoprolol and to follow-up with her outpatient associate project manager as soon as possible for evaluation about medication adjustment to control her A-fib. Flecainide was therefore discontinued per patient request. She is follow-up with her home associate project manager over at [facility] For evaluation and medication adjustment as needed. She is follow-up with her primary care doctor within 1 to 2 weeks. Patient seen and examined prior to discharge. She had no active complaints. Review of systems otherwise negative. Labs and vitals reviewed. Home medication reviewed and reconciled. Physical Exam Const alert, oriented x3 and no apparent distress General Appearance: cooperative Orientation / Consciousness: awake Exam Limitations: no limitations HEENT normocephalic, head/scalp atraumatic, hearing grossly normal bilaterally and moist oral mucous membranes Mouth: oral and palatal mucosa normal Eyes EOMs intact bilaterally and conjunctivae normal Neck supple and no JVD Cardio regular rate, regular rhythm, S1 normal heart sound, S2 normal heart sound and no murmurs GI normal to inspection, nondistended, normoactive bowel sounds, soft to palpation and non-tender Extremity normal to inspection, full ROM and no clubbing, cyanosis or edema Skin no rashes or lesions noted Neuro oriented x3, moves all extremities and no focal motor deficits Sensorium / Orientation: awake and alert Motor Exam: strength 5/5 throughout Psych affect normal Weight / BMI Weight Weight: 157 lb 13.616 oz Body Mass Index (BMI) 24.7 ABG / Lab / Microbiology Data 04/22/25 04:34 04/22/25 04:34 Laboratory: Laboratory Results - last 24 hr 04/22/25 04:34: WBC 6.4, RBC 3.52 L, Hgb 10.3 L, Hct 31.8 L, MCV 90.3, MCH 29.3, MCHC 32.4, RDW Std Deviation 47.4 H, RDW Coeff of Juan Daniel 14.2, Plt Count 173, MPV 11.7, Immature Gran % (Auto) 0.300, Neut % (Auto) 59.2, Lymph % (Auto) 24.1, [place] % (Auto) 9.4, Eos % (Auto) 5.6 H, Baso % (Auto) 1.4 H, Absolute Neuts (auto) 3.8, Absolute Lymphs (auto) 1.54, Nucleated RBC % 0, Sodium 139, Potassium 4.0, Chloride 106, Carbon Dioxide 25.6, Anion Gap 8, BUN 14, Creatinine 0.89, Estim Creat Clear Calc 59.65, Est GFR (MDRD) Non-Af 71, BUN/Creatinine Ratio 15.9, Glucose 89, Calcium 8.8 Microbiology: Microbiology 04/20/25 18:45 Mucosa - Nasopharyngeal Respiratory Panel (PCR) - Final 04/20/25 18:45 Mucosa - Nose SARS-CoV-2, Influenza & RSV (PCR) - Final D/C Instructions Discharge Activity: Return to Normal Activity Weight Bearing Status: Weight bearing as tolerated Call your doctor if you observe: Fever of 101 or Higher, Shortness of breath, Dizziness, Swelling in the ankles and Chest pain DC O2, CPAP, BIPAP Needs Home O2 Discharge instructions: No DC home with Oxygen: No Patient's Goals Of Care - F/U Goals Reviewed Goals of care reviewed with patient: Yes - No change Meaningful Use Info Meaningful Use Meaningful Use Diagnoses (Choose all that apply): None applicable Discharge Plan Admission Admit Date/Time: 04/20/25 13:32 Primary Reason for Your Visit: dizziness Attending Provider: Alison Selby Primary Care Provider: Irvin Muller Consulting Providers: Ravin Brewer; Tianna Levi; Porsche Naidu; Radha García; Dahiana Morrow; David Diaz; Shana Pedersen; Reese Iniguez; Cesar Ram; Ye Daley; Alyssa Howell; Renetta Kennedy; Ilya Mars; Mary Beth Romero; Asia Hoff; Leia Valdivia; Jozef Chung; Demetrice Tillman; Ian Ferreira; Lola Reyes; Malena Dockery; Alexi Ruiz Instructions Patient Instructions: ED FALL-from [id number] Additional Instructions / Restrictions: follow up with your associate project manager within 1-2 weeks for discussion about meds for afib Discharge Orders/Prescriptions Prescriptions: Continued liothyronine [Cytomel] 5 mcg Tablet 5 mcg PO DAILY pantoprazole 40 mg Tablet,Delayed Release (Dr/Ec) 40 mg PO DAILY ergocalciferol (vitamin D2) [Vitamin D2] 1,250 mcg (50,000 unit) Capsule 1,250 mcg PO QMONTH metoprolol tartrate 25 mg Tablet 25 mg PO BID PreserVision AREDS-2 250-90-40-1 mg Capsule 1 tab PO BID hydrocodone-acetaminophen 5-325 mg tablet 1 tab PO BID PRN (Reason: pain) levothyroxine 100 mcg tablet 100 mcg PO DAILY calcitriol 0.25 mcg capsule 0.25 mcg PO DAILY Patient Comments: SUN,MON,WED,FRI acetaminophen 500 mg Tablet 1,000 mg PO PRN Rx Instructions: Do not take more than 3000 mg Tylenol in a 24-hour period. Discontinued flecainide 150 mg tablet 75 mg PO BID Referrals / Follow Up: Irvin Muller DO [Primary Care Provider, Family Practice] - Within 1 Week Disposition Disposition (needs filled in before D/C Order can be placed): Home, Self Care Charges/Coding Visit Charges Inpatient E&M: 55600 Disch Hosp >30min
== END 2025-04-22 14:05 | disposition home or self-care (01) | DRG 149 ==
LOC: ED 13:40 → PCU 14:04
PROVIDERS: Admitting Provider Internal Medicine; Emergency Provider Emergency Medicine; PCP Student in an Organized Health Care Education/Training Program; Visit Provider Student in an Organized Health Care Education/Training Program
DX: R42 Dizziness and giddiness (principal); D63.8 Anemia in other chronic diseases classified elsewhere; E03.9 Hypothyroidism, unspecified; I48.0 Paroxysmal atrial fibrillation; K21.9 Gastro-esophageal reflux disease without esophagitis; R11.2 Nausea with vomiting, unspecified; R93.1 Abnormal findings on diagnostic imaging of heart and coronary circulation; R51.9 Headache, unspecified; T46.2X5A Adverse effect of other antidysrhythmic drugs, initial encounter; Z79.890 Hormone replacement therapy; Z98.890 Other specified postprocedural states; Z79.899 Other long term (current) drug therapy; Z87.891 Personal history of nicotine dependence
CPT/HCPCS: 36415; 70450; 70496; 70498; 70551; 80048; 80061; 82962; 83036; 83735; 84100; 84443; 84484; 85025; 85610; 85730; 87631; 87633; 93005; 93306; 94668; 94762; 97116; 97161; 97165; 97802; 99285; Q9967; A4216; J2405